=== PATIENT | female | born 1990 | race Caucasian/White ===

== ENCOUNTER 2023-01-17 11:13 | Outpatient (OUT) | payer OTHER, SELFPAY ==
--- NOTE | 2023-01-17 | XR_ITS ---
The [address] [address] Patient Name: MORGAN KIRKLAND MRN: [id number] date: 1990 Sex: F Assigned Patient Location: [facility] Current Patient Location: Accession/Order Number: [id number] Exam Date: 01/17/2023 11:20 Report Date: 01/19/2023 07:31 At the request of: CLARK BOLAÑOS Procedure: XR abdomen 1V EXAMINATION: XR abdomen 1V HISTORY: KIDNEY STONE COMPARISON: No relevant comparison available. FINDINGS: KIDNEY/URETER - RIGHT: No visible renal or ureteral calcifications. KIDNEY/URETER - LEFT: No visible renal or ureteral calcifications. PELVIS: No visible ureteral calcifications. Any visible calcifications favor phleboliths. BOWEL: No abnormal dilation or deviation. BONES: No acute abnormality. OTHER: Negative. No abnormal gaseous collections. XR/XR abdomen 1V IMPRESSION: No urinary tract calculi visualized Electronically authenticated by: LITA SIMPSON Date: 01/19/2023 07:31
== END 2023-01-17 11:14 | disposition home or self-care (01) ==
LOC: RAD 11:13
PROVIDERS: PCP Family Medicine; Visit Provider Family Medicine
DX: Z87.442 Personal history of urinary calculi (principal)
CPT/HCPCS: 74018

== ENCOUNTER 2023-03-31 12:32 | Outpatient (OUT) | payer OTHER, SELFPAY ==
--- OUTSIDE RECORDS SUMMARY | 2023-03-31 12:36 | XMS_ITS | CCD ---
Author Name Unknown Address [address] [facility] [address] [place] [address] Organization [facility] Care Team Providers Care Documentation Engineer Name Role Phone David Newberry Unavailable DAVID NEWBERRY Primary Care Physician ROHITH, DR DAVID Fisher Admitting Unavailable NEWBERRY, DR DAVID Fisher Primary Care Unavailable NEWBERRY, DR DAVID Fisher Attending Unavailable NEWBERRY, DR DAVID Fisher Attending Unavailable NEWBERRY, DR DAVID Fisher Admitting Unavailable NEWBERRY, DR DAVID Fisher Primary Care Unavailable NEWBERRY, DR DAVID Fisher Consulting Unavailable NEWBERRY, DR DAVID Fisher Primary Care Unavailable CLEMENS ., DR RODAS Admitting Unavailable CLEMENS ., DR RODAS Consulting Unavailable CLEMENS ., DR RODAS Attending Unavailable IRIS FUNEZ Consulting Unavailable NEWBERRY, DR DAVID Fisher Primary Care Unavailable CLEMENS ., DR RODAS Admitting Unavailable CLEMENS ., DR RODAS Consulting Unavailable CLEMENS ., DR RODAS Attending Unavailable ZIMISA, DR ZAHRA Roldan Consulting Unavailable NEWBERRY, DR DAVID Fisher Attending Unavailable NEWBERRY, DR DAVID Fisher Admitting Unavailable NEWBERRY, DR DAVID Fisher Primary Care Unavailable NEWBERRY, DR DAVID Fisher Attending Unavailable NEWBERRY, DR DAVID Fisher Admitting Unavailable NEWBERRY, DR DAVID Fisher Primary Care Unavailable ELANA RAMIREZ Consulting Unavailable NEWBERRY, DR DAVID Fisher Attending Unavailable NEWBERRY, DR DAVID Fisher Admitting Unavailable NEWBERRY, DR DAVID Fisher Primary Care Unavailable ROHITH, DR DAVID Fisher Consulting Unavailable KELSIE, DR MEJIA Attending Unavailable HAKAN, DR ZAHRA Roldan Consulting Unavailable ROHITH, DR DAVID Fisher Primary Care Unavailable KELSIE, DR MEJIA Admitting Unavailable ROHITH, DR DAVID Fisher Consulting Unavailable ELANA RAMIREZ Consulting Unavailable KELSIE, DR MEJIA Consulting Unavailable ROYER PEARCE Consulting Unavailable ROYER PEARCE Admitting Unavailable NEWBERRY, DR DAVID Fisher Primary Care Unavailable ROEYR PEARCE Attending Unavailable HAY ., DR APPLE Consulting Unavailable HAY ., DR APPLE Attending Unavailable NEWBERRY, DR DAVID Fisher Primary Care Unavailable HAY ., DR APPLE Admitting Unavailable ROHITH, DR DAVID Fisher Primary Care Unavailable CLEMENS ., DR RODAS Admitting Unavailable CLEMENS ., DR RODAS Consulting Unavailable CLEMENS ., DR RODAS Attending Unavailable YOEL VAZ Consulting Unavailable ROHITH, DR DAVID Fisher Primary Care Unavailable MIKY ., DR RODAS Consulting Unavailable CLEMENS ., DR RODAS Attending Unavailable CLEMENS ., DR RODAS Admitting Unavailable KEITH PLASENCIA Consulting Unavailable DELFINO COVINGTON Consulting Unavailable MD David Newberry Primary Care Provider DO Dasha Garcia Attending Provider MD David Newberry Primary Care Provider DO Dasha Garcia Attending Provider MD Enrique Lucas Attending Provider Clark CLEMENS Attending Unavailable Clark CLEMENS Attending Unavailable Clark CLEMENS Attending Unavailable Clark CLEMENS Attending Unavailable Enrique Lucas Admitting Unavailable Enrique Lucas Attending Unavailable David Newberry Primary Care Unavailable Dasha Garcia Admitting Unavailable Dasha Garcia Attending Unavailable David Newberry Primary Care Unavailable Dasha Garcia Attending Unavailable Jose, Dasha Admitting Unavailable David Newberry Primary Care Unavailable DASHA GARCIA Attending Unavailable David Newberry MD Primary Care Provider DAVID NEWBERRY Primary Care Unavailable ELANA RAMIREZ Referring Unavailable ELANA RAMIREZ Attending Unavailable NAHID GRIFFIN Attending Unavailable OG BARONE Attending Unavailable OG BARONE Attending Unavailable ELANA RAMIREZ Attending Unavailable OG BARONE Attending Unavailable ELANA RAMIREZ Attending Unavailable OG BARONE Admitting Unavailable OG BARONE Attending Unavailable Allergies Allergy Classification Reported Allergen(s) Allergy Type Date of Onset Reaction(s) Facility (14 sources) Penicillin; Translations: [penicillin] Drug Allergy 03-26-19 21 rash, Weal (disorder) General Surgery Rob (2 sources) Allergies Reconciled Propensity to adverse reactions Unknown [facility] Other (2 sources) Substance with penicillin structure and antibacterial mechanism of action (substance) Drug allergy 01-20-20 13 Unknown [facility] Other (2 sources) patient allergy list reviewed by nurse or physicia Propensity to adverse reactions 09-08-19 14 Comment:Done [employer] [facility] Other (3 sources) Penicillins; Translations: [Penicillins] Allergy to substance 12-16-19 23 Rash [facility] (3 sources) Povidone-Iodine; Translations: [povidone iodine topical] Drug Allergy 03-03-20 23 Eruption of skin (disorder) [facility] Medications Current Medications Medication Drug Class(es) Dates Sig (Normalized) Sig (Original) cetirizine hydrochloride 10 mg oral tablet (7 sources) Histamine-1 Receptor Antagonist Start: 04-15-2022 take 1 tablet by mouth every twenty-four hours Cetirizine HCl 10 MG 1 tablet Orally Once a day for 14 days Mar, Active docusate sodium 100 mg oral capsule (3 sources) Start: 12-29-2022 take 1 capsule by mouth twice daily Docusate Sodium (Colace) 100 mg capsule Active 100 MG PO Twice daily December 29, 2022 12:00pm Start: 06-07-2019 End: 12-15-2022 take 1 capsule by mouth twice daily Docusate Sodium (Colace) 100 mg capsule Discontinued 100 MG PO Twice daily June 07, 2019 7:07am December 15, 2022 1:43pm fluticasone propionate 0.05 mg/actuat metered dose nasal spray (7 sources) Corticosteroid Start: 04-15-2022 take 1 spray(s) nasal route twice daily Flonase Allergy Relief 50 MCG/ACT 1 spray in each nostril Nasally Twice a day for 14 day(s) Mar, Active ibuprofen 600 mg oral tablet (3 sources) Nonsteroidal Anti-inflammatory Drug Start: 12-29-2022 take 600 mg by mouth every six hours Ibuprofen Active 600 MG PO Q6H December 28, 2022 11:00pm Start: 06-07-2019 End: 12-15-2022 take 600 mg by mouth every six hours Ibuprofen Discontinued 600 MG PO Q6H June 06, 2019 11:00pm December 15, 2022 1:43pm metoprolol tartrate 75 mg oral tablet (12 sources) beta-Adrenergic Caden Start: 01-23-2023 Metopr olol Tartrate 75 mg oral tablet Refills(s) 0 Start Date: 01/23/23 Status: Ordered Start: 12-15-2022 take 75 mg by mouth twice kelly y Metoprolol Tartrate Active 75 MG PO Twice daily December 14, 2022 11:00pm Start: 05-19-2022 Lopressor 25 m g oral tablet Refills(s) 0 Start Date: 05/19/22 Status: Ordered take 1 tablet by meg th twice daily Metoprolol Tartrate 50 MG 1 tab Orally Twice a day for 30 day(s) Active sulfamethoxazole 800 mg / trimethoprim 160 mg oral tablet (7 sources) Dihydrofolate Reductase Inhibitor Antibacterial, Sulfonamide Antimicrobial Start: 04-14-2022 take 1 tablet by mouth every twelve hours Bactrim DS 800-160 MG 1 tablet Orally Twice a day for 10 day(s) Mar, Active traMADol hydrochloride 50 mg oral tablet (1 source) Opioid Agonist Start: 12-29-2022 take 50 mg by mouth every six hours Tramadol Active 50 MG PO Q6H 12 10December 28, 2022 11:00pm Completed/Discontinued Medications Medication Drug Class(es) Dates Sig (Normalized) Sig (Original) cefTRIAXone (16 sources) Cephalosporin Antibacterial Start: 11-04-2020 Rocephin 500 mg Oct, 1 g Start: 2016 Rocephin 500 m g Nov, 500 mg nitroglycerin 0.3 mg sublingual tablet (1 source) Nitrate Vasodilator Start: 02-27-2023 End: 02-27-2023 nitroGLYCERIN (NITROSTAT) SL tablet 0.3 mg Vit 84-Hikd-Eimcg-Dha ( + Dha) 28 mg iron- 975 mcg-200 mg Combo Pack (2 sources) Start: 04-21-2019 End: 12-15-2022 take 1 tablet by mouth once daily Vit 62-Kpca-Bxxog-Dha ( + Dha) 28 mg iron- 975 mcg-200 mg Combo Pack Discontinued 1 TAB PO Daily April 21, 2019 12:00am December 15, 2022 1:43pm Start: 04-21-2019 End: 12-15-2022 take 1 tablet by mouth once daily Vit 78-Weej-Rkfam-Dha ( + Dha) 28 mg iron- 975 mcg-200 mg Combo Pack Discontinued 1 TAB PO Daily April 21, 2019 1:00am December 15, 2022 2:43pm Problems Active Problems Problem Classification Problem Date Documented Date Episodic/Chronic Abdominal pain (16 sources) Abdominal pain; Translations: [Unspecified abdominal pain] Onset: 09-22-2013 Episodic Allergic reactions (10 sources) Contact dermatitis; Translations: [Eczema] Onset: 06-18-2017 11-10-2019 Episodic Anxiety disorders (4 sources) Anxiety; Translations: [Anxiety disorder] Onset: 09-07-2013 11-10-2019 Chronic Bacterial infection; unspecified site (3 sources) Methicillin resistant Staphylococcus aureus infection; Translations: [Personal history of Methicillin resistant Staphylococcus aureus infection] Onset: 07-24-2022 11-17-2020 Episodic Calculus of urinary tract (16 sources) History of calculus of kidney; Translations: [Personal history of urinary calculi] Onset: 05-19-2022 Episodic Cardiac dysrhythmias (20 sources) Tachycardia, unspecified; Translations: [Palpitations] Onset: 04-06-2014 Episodic Chronic obstructive pulmonary disease and bronchiectasis (2 sources) Bronchitis; Translations: [Bronchitis, not specified as acute or chronic] Episodic Coma; stupor; and brain damage (2 sources) Daytime somnolence; Translations: [Somnolence] Episodic Conditions associated with dizziness or vertigo (4 sources) Postural dizziness; Translations: [Dizziness and giddiness] Onset: 01-09-2023 02-27-2023 Episodic Endometriosis (1 source) Uterine adenomyosis; Translations: [Adenomyosis of uterus] 12-29-2022 Chronic Esophageal disorders (5 sources) Gastroesophageal reflux disease; Translations: [Gastro-esophageal reflux disease without esophagitis] Onset: 11-01-2013 11-10-2019 Chronic Essential hypertension (9 sources) Hypertensive disorder; Translations: [Essential (primary) hypertension] Onset: 07-18-2016 11-10-2019 Chronic Genitourinary symptoms and ill-defined conditions (20 sources) Urgent desire to urinate; Translations: [Urgency of urination] Onset: 05-19-2022 Episodic Influenza (2 sources) Upper respiratory tract infection due to Influenza; Translations: [Influenza due to unidentified influenza virus with other respiratory manifestations] Episodic Malaise and fatigue (1 source) Other fatigue Episodic Menstrual disorders (2 sources) Menorrhagia; Translations: [Excessive and frequent menstruation with regular cycle] Onset: 12-29-2022 12-29-2022 Chronic Other circulatory disease (2 sources) Elevated blood-pressure reading without diagnosis of hypertension; Translations: [Elevated blood-pressure reading, without diagnosis of hypertension] Episodic Other connective tissue disease (2 sources) Bursitis 11-10-2019 Episodic Other connective tissue disease (1 source) Fibromyalgia; Translations: [FIBROMYALGIA] Onset: 07-24-2022 Episodic Other female genital disorders (2 sources) History of past delivery; Translations: [Status post vaginal delivery] 06-07-2019 Episodic Other nutritional; endocrine; and metabolic disorders (2 sources) Body mass index 30+ - obesity 11-09-2020 Chronic Other nutritional; endocrine; and metabolic disorders (6 sources) Obese class II; Translations: [Body mass index (BMI) 37.0-37.9, adult] Chronic Other nutritional; endocrine; and metabolic disorders (2 sources) Obese class I; Translations: [Body mass index 34.0-34.9, adult] Onset: 02-09-2017 Chronic Other nutritional; endocrine; and metabolic disorders (1 source) Body mass index 40+ - severely obese; Translations: [Body mass index (BMI) 40.0-44.9, adult] Chronic Other nutritional; endocrine; and metabolic disorders (1 source) Severe obesity; Translations: [Morbid (severe) obesity due to excess calories] Chronic Other nutritional; endocrine; and metabolic disorders (1 source) Morbid (severe) obesity due to excess calories Chronic Other nutritional; endocrine; and metabolic disorders (1 source) Body mass index (BMI) 40.0-44.9, adult Chronic Other skin disorders (2 sources) Hypertrophic condition of skin; Translations: [Other hypertrophic disorders of the skin] Episodic Other skin disorders (2 sources) Folliculitis; Translations: [Follicular disorder, unspecified] Episodic Other upper respiratory infections (7 sources) Acute maxillary sinusitis, unspecified; Translations: [Acute pharyngitis] Onset: 02-09-2017 Episodic Residual codes; unclassified (1 source) Acquired absence of both cervix and uterus; Translations: [Acquired absence of both cervix and uterus] Onset: 12-29-2022 Episodic Skin and subcutaneous tissue infections (6 sources) Cellulitis caused by Staphylococcus aureus; Translations: [Abscess of right lower limb] 11-17-2020 Episodic Spondylosis; intervertebral disc disorders; other back problems (6 sources) Backache; Translations: [Dorsalgia, unspecified] Onset: 09-07-2013 11-10-2019 Episodic Systemic lupus erythematosus and connective tissue disorders (5 sources) Sjogren's syndrome; Translations: [Sicca syndrome, unspecified] Onset: 02-13-2015 11-10-2019 Chronic Thyroid disorders (14 sources) Goiter; Translations: [Nontoxic goiter, unspecified] Onset: 04-12-2022 Chronic Thyroid disorders (1 source) Disorder of thyroid, unspecified Episodic Unclassified (1 source) PERSONAL HISTORY OF COVID-19; Translations: [PERSONAL HISTORY OF COVID-19] Onset: 07-24-2022 Unclassified (1 source) Sjogren syndrome with keratoconjunctivitis; Translations: [Sjogren syndrome with keratoconjunctivitis] Onset: 01-20-2023 Unclassified (1 source) Adenomyosis of the uterus; Translations: [Adenomyosis of the uterus] Onset: 12-29-2022 Unclassified (1 source) Encounter for preprocedural laboratory examination; Translations: [Encounter for preprocedural laboratory examination] Onset: 12-15-2022 Urinary tract infections (6 sources) Urinary tract infectious disease; Translations: [Urinary tract infection, site not specified] Onset: 05-19-2022 Episodic Viral infection (6 sources) Verruca vulgaris; Translations: [Viral wart, unspecified] Onset: 02-09-2017 11-10-2019 Episodic Viral infection (2 sources) Disease caused by 2019-nCoV; Translations: [COVID-19] Past or Other Problems Problem Classification Problem Date Documented Da te Episodic/Chronic Acute bronchitis (4 sources) Acute bronchitis; Translations: [Acute bronchitis, unspecified] Onset: 09-12-2015 11-10-2019 Episodic Coagulation and hemorrhagic disorders (4 sources) Spontaneous ecchymosis; Translations: [Spontaneous ecchymoses] Onset: 11-30-2013 11-10-2019 Episodic Immunizations and screening for infectious disease (4 sources) Raised antibody titer; Translations: [RAISED ANTIBODY TITER] Onset: 04-12-2022 Episodic Other connective tissue disease (4 sources) Fibromyalgia; Translations: [Fibromyalgia] Onset: 02-13-2015 11-10-2019 Episodic Other connective tissue disease (2 sources) Prepatellar bursitis; Translations: [Prepatellar bursitis, right knee] Onset: 02-13-2015 Episodic Other connective tissue disease (1 source) Myalgia/myositis - multiple; Translations: [Unspecified myalgia and myositis] Onset: 09-07-2013 Episodic Other connective tissue disease (1 source) Muscle pain; Translations: [Unspecified myalgia and myositis] Onset: 09-07-2013 Episodic Other screening for suspected conditions (not mental disorders or infectious disease) (1 source) Abnormal coagulation profile; Translations: [ABNORMAL COAGULATION PROFILE] Onset: 04-15-2022 Episodic Otitis media and related conditions (4 sources) Otitis media; Translations: [Acute secretory otitis media] Onset: 06-03-2017 11-10-2019 Episodic Syncope (7 sources) Syncope; Translations: [Syncope and collapse] Onset: 09-22-2013 11-10-2019 Episodic Unclassified (1 source) Paroxysmal SVT (supraventricular tachycardia) I47.10 Results Test Name Value Interpretation Reference Range Facility Office Visiton 03-03-2023 Follow-up visit [id number] Ada Kirkland 1990 F Date Provider Department Center 03/03/2023 OG ERVIN RADHA Rivas [facility] Family History Problem Relation Age of Onset Heart attack Father 44 Coronary artery disease Father Clotting disorder Father Family Status - Relation Status Age at Father Alive Level of Service:88354 MA OFFICE/OUTPATIENT ESTABLISHED MOD MDM 30 MIN Normal [facility] Tilt tableOrdered By: Nadiya bonner on 02-27-2023 BP (Initial Tilt) 125/97 mmHg BON SEC OURS [employer] Phone: BP (Max BP) 139/92 mmHg BON SECOURS [employer] Work Phone: BP (Max Heart Rate) 83/41 mmHg BON S ECOURS [employer] Work Phone: BP (Min BP) 83/41 mmHg MIGUEL SECTHUAN [employer] Work Phone: BP (Min Heart Rate) 111/82 mmHg MIGUEL CANTU [employer] Work Phone: BP (Supine) 131/52 bpm BON [employer] Work Phone: Heart rate 72 /min bpm MIGUEL [employer] Work Phone: Heart rate 112 /min bpm BON [employer] Work Phone: Minutes (Max BP) 22 BON SECO KALI [employer] Work Phone: Minutes (Max Heart Rate) 23 MIGUEL [employer] Work Phone: Minutes (Min BP) 23 BON SECO [employer] Work Phone: Minutes (Min Heart Rate) 6 MIGUEL [employer] Work Phone: Rhythm (Initial Tilt) SR MIGUEL [employer] Work Phone: Rhythm (Max BP) ST BON SECOU RS [employer] Phone: Rhythm (Max Heart Rate) ST MIGUEL [employer] Phone: Rhythm (Min BP) ST BON SECOU RS [employer] Phone: Rhythm (Min Heart Rate) SR [employer] Phone: Rhythm (Supine) SR BON SECOU RS [employer] Work Phone: BON [employer] Phone: Tilt tableon 02-27-2023 Tilt Study Conclusio ns: Study Conclusions: Abnormal head upright tilt study. The patient's heart rate, blood pressure response and symptoms were most consistent with Orthostatic intolerance/Postural Orthostatic Tachycardia Syndrome(POTS). Combined with vigilant maintenance of euvolemia and maintaining a moderate salt intake, pharmacologic treatment with Florinef, Midodrine and/or beta blockers among other treatments have shown some effectiveness in the treatment of this condition. Tilt Table Tilt duration without medication: 20 minutes. Tilt elevation at 70 degrees. Baseline supine HR: 72 bpm. Baseline supine BP: 131/52. Baseline supine rhythm: SR. Initial tilted HR: 78 bpm. Initial tilted BP: 125/97. Initial tilted rhythm: SR. Initial Tilt revealed symptoms such as (no S/S found). Nitroglycerin given. NTG 0.3 mcg was administered. Tilt duration with NTG = 10 minutes. After the introduction of NTG, the following symptoms were noteable: palpitations, tachycardia, dizziness and light headedness. The test was stopped due to the end of test duration. Procedure Summary: After explaining the risk, benefits and alternatives to the procedure, informed written consent was obtained. The patient was brought to the tilt table laboratory in a fasting and resting state. The patient was placed on the tilt table in the supine position. ECG patches were applied and an IV was placed. The patient's baseline blood pressure was 131/52 mmHg with a heart rate of 72/minute. The patient was then raised to the 70 degree head upright tilt position with pulse rate, blood pressure and cardiac rhythm monitored and recorded each minute of the study for a maximum of 30 minutes. During the initial 20 minutes of the study, the patient's blood pressure ranged from a high of 135/84 mmHg to a low of 103/74 mmHg, while their heart rate ranged from a low of 78/minute to a high of 92/minute. During this period, the patient reported no symptoms. During the last 10 minutes of the study, the patient was given 0.3 mg of sublingual Nitroglycerin in order to stimulate sympathetic stimulation to increase the patient's heart rate by at least 20%. During this time, the patient's blood pressure ranged from a high of 139/92 mmHg to a low of 83/41 mmHg, while their heart rate ranged from a low of 97/minute to a high of 122/minute. During this period, the patient reported moderate lightheadedness, palpitations, and leg weakness. At this point, the patient was returned to the supine position and monitored for an additional ten minutes. Once the patient felt well enough to be discharged home, they were discharged home with instructions to follow up with their primary care physician and/ or lathe sander as previously scheduled. [facility] CV CPACS Radiology Study observation (narrative) [facility] Vital signsOrdered By: Nadiya douglass on 02-27-2023 Heart rate 78 /min bpm [employer] Work Phone: Heart rate 122 /min bpm [employer] Phone: Ambulatory Visit Summaryon 1 03-25-2022 Ambulatory Visit Summary MORGAN KIRKLAND :1990 Visit Date:01/23/2023 Ambulatory Visit Instructions Your Diagnosis History of kidney stones Recurrent UTI Tests Performed Urnls Dip Stick Auto w/o Microscopy POC 64220 XR Abdomen 1 View -- Results Pending -- Please visit your patient portal for your results or contact your primary care physician. Your Care Team Attending Physician - Clark CLEMENS MD Primary Care Physician - DAVID NEWBERRY MD This Is Your Medications List Contact prescribing physician if questions or concerns metoprolol (Metoprolol Tartrate 75 mg oral tablet) Procedures Performed Cystoscopy (07/17/2022), Tonsillectomy and adenoidectomy (2012), Laparoscopic-assisted vaginal hysterectomy. Discharge Vitals Heart Rate (Peripheral) 73 Respiratory Rate 16 Blood Pressure 124/82 Height 172 cm Height 68 in Weight 104.6 kg Weight 230.12 lb BMI 35.36 What to do next Scheduled Follow-Up Appointments Thursday 8:30 AM EST With: MIKY SAMPSON, Clark Roldan Where: [facility] Lab Reportson 01-23-2023 Lab Reports [id number] [facility] Patient Educationon 01-24-20 23 Patient Education Obstetrics and Gynec ology Urinary Tract Infection, Adult A urinary tract infection (UTI) is an infection of any part of the urinary tract. The urinary tract includes: ? The kidneys. ? The ureters. ? The bladder. ? The urethra. These organs make, store, and get rid of pee (urine) in the body. What are the causes? This infection is caused by germs (bacteria) in your genital area. These germs grow and cause swelling (inflammation) of your urinary tract. What increases the risk? The following factors may make you more likely to develop this condition: ? Using a small, thin tube (catheter) to drain pee. ? Not being able to control when you pee or poop (incontinence). ? Being female. If you are female, these things can increase the risk: ? Using these methods to prevent : ? A medicine that kills sperm (spermicide). ? A device that blocks sperm (diaphragm). ? Having low levels of a female hormone (estrogen). ? Being . You are more likely to develop this condition if: ? You have genes that add to your risk. ? You are sexually active. ? You take antibiotic medicines. ? You have trouble peeing because of: ? A prostate that is bigger than normal, if you are male. ? A blockage in the part of your body that drains pee from the bladder. ? A kidney stone. ? A nerve condition that affects your bladder. ? Not getting enough to drink. ? Not peeing often enough. ? You have other conditions, such as: ? Diabetes. ? A weak disease-fighting system (immune system). ? Sickle cell disease. ? Gout. ? Injury of the spine. What are the signs or symptoms? Symptoms of this condition include: ? Needing to pee right away. ? Peeing small amounts often. ? Pain or burning when peeing. ? Blood in the pee. ? Pee that smells bad or not like normal. ? Trouble peeing. ? Pee that is cloudy. ? Fluid coming from the vagina, if you are female. ? Pain in the belly or lower back. Other symptoms include: ? Vomiting. ? Not feeling hungry. ? Feeling mixed up (confused). This may be the first symptom in older adults. ? Being tired and grouchy (irritable). ? A fever. ? Watery poop (diarrhea). How is this treated? ? Taking antibiotic medicine. ? Taking other medicines. ? Drinking enough water. In some cases, you may need to see a specialist. Follow these instructions at home: Medicines ? Take [id number] and prescription medicines only as told by your doctor. ? If you were prescribed an antibiotic medicine, take it as told by your doctor. Do not stop taking it even if you start to feel better. General instructions ? Make sure you: ? Pee until your bladder is empty. ? Do not hold pee for a long time. ? Empty your bladder after sex. ? Wipe from front to back after peeing or pooping if you are a female. Use each tissue one time when you wipe. ? Drink enough fluid to keep your pee pale yellow. ? Keep all follow-up visits. Contact a doctor if: ? You do not get better after 1?2 days. ? Your symptoms go away and then come back. Get help right away if: ? You have very bad back pain. ? You have very bad pain in your lower belly. ? You have a fever. ? You have chills. ? You feeling like you will vomit or you vomit. Summary ? A urinary tract infection (UTI) is an infection of any part of the urinary tract. ? This condition is caused by germs in your genital area. ? There are many risk factors for a UTI. ? Treatment includes antibiotic medicines. ? Drink enough fluid to keep your pee pale yellow. This information is not intended to replace advice given to you by your health care provider. Make sure you discuss any questions you have with your health care provider. Document Revised: 10/12/2020 Document Reviewed: 10/12/2020 [employer] Patient Education ? 2022 [employer]. [facility]2023 [facility] [id number] [facility] Urology Office/Clinic Noteon 01-23-2023 Urology Office/Clinic Note Chief Complaint hx of kidney stones HPI Staff 6 month f/u with KUB. Previous dx of hx of kidney stones, urinary frequency, urgency and recurrent UTI. Dysuria: no Incomplete bladder emptying: no Hematuria: pt is spotting from the recent hysterectomy Frequency: no Urgency: no Nocturia: no Stream: good steady stream Leaking: a little Post void dripping: no Wearing pads/ Depends: no Urge incontinence: no Stress incontinence: no Incontinence without Sensory Awareness: no Abdominal pain: no Flank pain: not at this time Sexual complaints: no History of Present Illness Tests reviewed: reviewed UA, KUB I have reviewed the previous health record information and history for this patient from Dr. Clemens. I have reviewed and verified the staff HPI to be accurate for this encounter. Review of Systems ROS - Provider Constitutional: denies weight loss, denies hot flashes. Eyes: denies eye problems. Gastrointestinal: denies nausea, denies vomiting. Cardiovascular: denies chest pain or angina. Integumentary: no dryness Musculoskeletal: denies musculoskeletal symptoms. ENMT: denies otolaryngeal symptoms. Respiratory: no shortness of breath. Heme/Lymph: denies easy bleeding tendency, denies easy bruising tendency. Psychiatric: no confusion, no anxiety. Genitourinary: See HPI. Physical Exam Vitals & Measurements HR: 73(Peripheral) RR: 16 BP: 124/82 HT: 68 in HT: 172 cm WT: 104.6 kg WT: 230.12 lb BMI: 35.36 General Appearance: alert , no acute distress, well nourished, well developed female. Genitourinary: bladder nonpalpable, no flank pain. Assessment/Plan Reports she has had recent cardiac complications, such as Tachycardia. States POTS is trying to be r/o. 1. History of kidney stones (Z87.442: Personal history of urinary calculi) S/p Cysto/R ureteral dilation/R URS/basket extraction 07/17/22. (first stone event) KUB 01/17/23 TBH - no stones id'd. Denies any stone episodes since last encounter. Reports she maintains increased fluid intake. Will continue to monitor. Discussed if pt has recurrent stone episode, will consider a metabolic workup. -Cont increased fluid intake -KUB in 1yr 2. Recurrent UTI (N39.0: Urinary tract infection, site not specified) UCx 01/20/23 - neg. UA today negative for blood and infection. Denies burning with urination or gross hematuria wo other UTI sxs. Advised pt to maintain increased fluid intake. Follow-up With When Contact Information MIKY SAMPSON, Clark Roldan, [facility] [address], [place] [address]- [phone] Additional Instructions: 1 yr w/ KUB Patient Education Urinary Tract Infection, Adult, [id number] Antionette Sparks, personally scribed for Dr. Clemens on 01/23/2023 09:39:31. . Documentation recorded by the scribe, Antionette Huizar, accurately reflects the services(s) I performed and decisions made by me. Authenticated by Dr. Clemens on 01/23/2023 09:41:20. Problem List/Past Medical History Ongoing Acute bronchitis Acute right flank pain Anxiety Back pain BMI 36.0-36.9,adult Bursitis Chronic GERD Contact dermatitis Eczema Epigastric pain Fibromyalgia Gross hematuria History of kidney stones Hypertension Infection of skin due to methicillin resistant Staphylococcus aureus (MRSA) Kidney stone Left sided abdominal pain MRSA cellulitis Otitis media Palpitations Recurrent UTI Sjogren's syndrome Spontaneous ecchymoses Syncope Tachycardia Urinary frequency Urinary urgency UTI symptoms Verruca vulgaris Historical No qualifying data Procedure/Surgical History Cystoscopy (07/17/2022), Tonsillectomy and adenoidectomy (2012), Laparoscopic-assisted vaginal hysterectomy. Medications Metoprolol Tartrate 75 mg oral tablet Allergies Betadine (Rash) penicillin (Hives) Social History Alcohol - Denies Alcohol Use, 11/09/2020 Substance Abuse - Denies Substance Abuse, 11/09/2020 Tobacco Never (less than 100 in lifetime) Tobacco Use:. Never Smokeless Tobacco Use:., 05/19/2022 Family History Arthritis: Mother. Asthma: Father. Breast cancer: Grandparent. Diabetes: Grandparent. Glaucoma: Father. Heart problem: Father and Grandparent. Hypertension: Mother. Kidney stone: Grandparent. Migraine: Mother. Prostate cancer: Grandparent. Immunizations Vaccine Date Status SARS-CoV-2 (COVID-19) mRNA-1273 vaccine 04/25/2020 Recorded SARS-CoV-2 (COVID-19) mRNA-1273 vaccine 03/28/2020 Recorded diphtheria/pertussis, acel/tetanus adult 06/07/2019 Recorded hepatitis B adult vaccine 07/01/2018 Recorded hepatitis B adult vaccine 05/21/2018 Recorded Lab Results Ambulatory Point of Care Results Bilirubin Urine Dipstick: Negative (01/23/23 09:04:00) Blood Urine Dipstick: Negative (01/23/23 09:04:00) Glucose Urine Dipstick: Negative (01/23/23 09:04:00) Ketones Urine Dipstick: Negative (01/23/23 09:04:00) (more content not included)... Normal [facility] Comment on above: Result Comment: Elec tronically Signed By: Clark CLEMENS MD\.br\Date and Time Signed: 01/23/23 09:41 EST\.br\Electronically Co-Signed By: Antionette Huizar\.br\Date and Time Co-Signed: 01/23/23 09:39 EST Physician Orderon 01-21-2023 Physician Order [id number] Normal [facility] Automated erythrocytes count in urine sediment (number/area)Ordered By: Enrique Lucas on 01-20-2023 RBC Auto (Urine sed) [#/Area] 10-19 [HPF] 0-4 [facility] Automated leukocytes count i n urine sediment (number/area)Ordered By: Enrique Lucas on 01-20-2023 WBC Auto (Urine sed) [#/Area] 5-9 [HPF] 0-4 [facility] Basophils Auto (Bld) [#/Vol] Ordered By: Enrique Lucas on 01-20-2023 Basophils (Bld) [#/Vol] 0.1 10*3/uL 0.0-0.2 [facility] Basophils/100 WBC Auto (Bld) Ordered By: Enrique Lucas on 01-20-2023 Basophils/100 WBC (Bld) 0.7 % . [facility] Bilirubin Test strip Ql (U)O rdered By: Enrique Lucas on 01-20-2023 Bilirubin Ql (U) Negative Negative [facility] C reactive protein [Mass/vol ume] in Serum or PlasmaOrdered By: Enrique Lucas on 01-20-2023 CRP [Mass/Vol] 0.5 mg/dL 0.0-0.5 [facility] C-Reactive Proteinon 023 C-Reactive Protein 0.5 mg/dL Normal 0.0-0.5 [facility] Comment on above: Result Comment: PERF ORMED BY: [facility] [address] [place] [address] PATHOLOGIST CELL TESTER OLIMPIA MORA M.D. Performed By: #### B MP #### [address] Color Auto (U)Ordered By: Marybeth Lucas on 01-20-2023 Color (U) Yellow Yellow [facility] Complement C3on 01-20-2023 Complement C3 182 mg/dL High 82-167 [facility] Comment on above: Result Comment: Perf ormed at: - [facility] [id number] Internet Application Developer: Chris Urban PhD, Phone: [phone] Performed By: #### B MP #### [address] Complement C4on 01-20-2023 Complement C4 29 mg/dL Normal 12-38 [facility] Comment on above: Result Comment: PERF ORMED BY: [place] [address] PATHOLOGIST CELL TESTER OLIMPIA MORA M.D. Performed By: #### B MP #### [address] Complete Blood Count Auto Di ffon 01-20-2023 Basophils (Bld) [#/Vol] 0.1 10*3/uL Normal 0.0-0.2 [facility] Comment on above: Performed By: #### B MP #### [address] Basophils/100 WBC (Bld) 0.7 % Normal . [facility] Comment on above: Performed By: #### B MP #### [place] [address] [place] Eosinophils (Bld) [#/Vol] 0.2 10*3/uL Normal 0.0-0.45 [facility] Comment on above: Performed By: #### B MP #### [address] Eosinophils/100 WBC (Bld) 3.0 % Normal . [facility] Comment on above: Performed By: #### B MP #### [address] Erythrocyte distribution width (RBC) [Ratio] 13.0 % Normal 11.9-15.3 [facility] Comment on above: Performed By: #### B MP #### [address] Hematocrit (Bld) [Volume fraction] 41.5 % Normal 34.0-46.4 [facility] Comment on above: Performed By: #### B MP #### [address] Hemoglobin (Bld) [Mass/Vol] 14.0 g/dL Normal 11.8-15.4 [facility] Comment on above: Performed By: #### B MP #### [address] Lymphocytes (Bld) [#/Vol] 2.6 10*3/uL Normal 1.00-4.8 [facility] Comment on above: Performed By: #### B MP #### [address] Lymphocytes/100 WBC (Bld) 35.4 % Normal . [facility] Comment on above: Performed By: #### B MP #### [address] MCH (RBC) [Entitic mass] 30.2 pg Normal 24.7-34.3 [facility] Comment on above: Performed By: #### B MP #### [address] MCV (RBC) [Entitic vol] 89.4 fL Normal 80-100 [facility] Comment on above: Performed By: #### B MP #### [address] Mean Corpuscular HGB Conc 33.7 g/dL Normal 32.0-35.0 [facility] Comment on above: Performed By: #### B MP #### [address] Monocytes (Bld) [#/Vol] 0.4 10*3/uL Normal 0.0-0.8 [facility] Comment on above: Performed By: #### B MP #### [facility] [address] [place] [address] [place] Monocytes/100 WBC (Bld) 5.3 % Normal . [facility] Comment on above: Performed By: #### B MP #### [facility] [address] [place] [address] [place] Neutrophils (Bld) [#/Vol] 4.1 10*3/uL Normal 1.8-7.7 [facility] Comment on above: Performed By: #### B MP #### [facility] [address] Neutrophils/100 WBC (Bld) 55.6 % Normal . [facility] Comment on above: Performed By: #### B MP #### [address] NRBC% 0.1 /100{WBC} Normal 0-0.5 [facility] Comment on above: Performed By: #### B MP #### [address] Platelet mean volume (Bld) [Entitic vol] 8.5 fL Normal 6.3-10.7 [facility] Comment on above: Performed By: #### B MP #### [place] [address] [place] Platelets (Bld) [#/Vol] 253 10*3/uL Normal 150-450 [facility] Comment on above: Performed By: #### B MP #### [place] [address] [place] RBC (Bld) [#/Vol] 4.65 10*6/uL Normal 3.60-5.00 [facility] Comment on above: Performed By: #### B MP #### [address] WBC (Bld) [#/Vol] 7.4 10*3/uL Normal 3.8-11.6 [facility] Comment on above: Performed By: #### B MP #### [facility] [address] [place], [place] [id number] [place] Creatinineon 01-20-2023 Creatinine [Mass/Vol] 0.70 mg/dL Normal 0.60-1.20 [facility] Comment on above: Performed By: #### C 4, C3 #### [facility] , #### ADDONUAPLUS, CBC, CRP, CUU, CREAT, ESR #### [place] [address] [place] GFR/1.73 sq M.predicted MDRD (S/P/Bld) [Vol rate/Area] mL/min/{1.73_m2} Normal [facility] Comment on above: Performed By: #### C 4, C3 #### [facility] , #### ADDONUAPLUS, CBC, CRP, CUU, CREAT, ESR #### [address] Creatinine [Mass/volume] in Serum or PlasmaOrdered By: Enrique Lucas on 01-20-2023 Creatinine [Mass/Vol] 0.70 mg/dL 0.60-1.20 [facility] Dipstick and Microscopicon 1 03-22-2022 Appearance (U) Clear Normal Clear [facility] Comment on above: Order Comment: Name Collection Type:: Clean-Voided Midstream Performed By: #### C 4, C3 #### [facility] , #### ADDONUAPLUS, CBC, CRP, CUU, CREAT, ESR #### [facility] [address] [place] [address] [place] Bacteria,Urine 1+ High None Seen [facility] Comment on above: Order Comment: Name Collection Type:: Clean-Voided Midstream Performed By: #### C 4, C3 #### [facility] , #### ADDONUAPLUS, CBC, CRP, CUU, CREAT, ESR #### [facility] [address] [place] [address] [place] Bilirubin,Urine Negative Normal Negative [facility] Comment on above: Order Comment: Name Collection Type:: Clean-Voided Midstream Performed By: #### C 4, C3 #### [facility] , #### ADDONUAPLUS, CBC, CRP, CUU, CREAT, ESR #### [facility] [address] [place] [address] Color (U) Yellow Normal Yellow [facility] Comment on above: Order Comment: Name Collection Type:: Clean-Voided Midstream Performed By: #### C 4, C3 #### [facility] , #### ADDONUAPLUS, CBC, CRP, CUU, CREAT, ESR #### [facility] [address] [place] [address] Glucose Ql (U) Normal Normal Normal [facility] Comment on above: Order Comment: Name Collection Type:: Clean-Voided Midstream Performed By: #### C 4, C3 #### [facility] , #### ADDONUAPLUS, CBC, CRP, CUU, CREAT, ESR #### [facility] [address] [place] [address] Hyaline Casts,Urine None Seen Normal 0-8 [facility] Comment on above: Order Comment: Name Collection Type:: Clean-Voided Midstream Result Comment: PERF ORMED BY: [place] [address] PATHOLOGIST CELL TESTER OLIMPIA MORA M.D. Performed By: #### C 4, C3 #### [facility] , #### ADDONUAPLUS, CBC, CRP, CUU, CREAT, ESR #### [facility] [address] [place] [address] Ketones Ql (U) Negative Normal Negative [facility] Comment on above: Order Comment: Name Collection Type:: Clean-Voided Midstream Performed By: #### C 4, C3 #### [facility] , #### ADDONUAPLUS, CBC, CRP, CUU, CREAT, ESR #### [address] Leukocyte esterase Test strip Ql (U) 2+ High Negative [facility] Comment on above: Order Comment: Name Collection Type:: Clean-Voided Midstream Performed By: #### C 4, C3 #### [facility] , #### ADDONUAPLUS, CBC, CRP, CUU, CREAT, ESR #### [address] Nitrite,Urine Negative Normal Negative [facility] Comment on above: Order Comment: Name Collection Type:: Clean-Voided Midstream Performed By: #### C 4, C3 #### [facility] , #### ADDONUAPLUS, CBC, CRP, CUU, CREAT, ESR #### [address] Occult Blood,Urine Trace High Negative [facility] Comment on above: Order Comment: Name Collection Type:: Clean-Voided Midstream Performed By: #### C 4, C3 #### [facility] , #### ADDONUAPLUS, CBC, CRP, CUU, CREAT, ESR #### [address] pH (U) 6.0 [pH] Normal 5.0-9.0 [facility] Comment on above: Order Comment: Name Collection Type:: Clean-Voided Midstream Performed By: #### C 4, C3 #### [facility] , #### ADDONUAPLUS, CBC, CRP, CUU, CREAT, ESR #### [address] Protein,Urine Negative Normal Negative [facility] Comment on above: Order Comment: Name Collection Type:: Clean-Voided Midstream Performed By: #### C 4, C3 #### [facility] , #### ADDONUAPLUS, CBC, CRP, CUU, CREAT, ESR #### [address] RBC,Urine 10-19 High 0-4 [facility] Comment on above: Order Comment: Name Collection Type:: Clean-Voided Midstream Performed By: #### C 4, C3 #### [facility] , #### ADDONUAPLUS, CBC, CRP, CUU, CREAT, ESR #### [address] Specificy [place],Urine 1.016 Normal 1.001-1.03 0 [facility] Comment on above: Order Comment: Name Collection Type:: Clean-Voided Midstream Performed By: #### C 4, C3 #### [facility] , #### ADDONUAPLUS, CBC, CRP, CUU, CREAT, ESR #### [address] Squamous Epithelial Cell,Urine 3-4 High 0-2 [facility] Comment on above: Order Comment: Name Collection Type:: Clean-Voided Midstream Performed By: #### C 4, C3 #### [facility] , #### ADDONUAPLUS, CBC, CRP, CUU, CREAT, ESR #### [address] Urobilinogen,Urine Normal Normal Normal [facility] Comment on above: Order Comment: Name Collection Type:: Clean-Voided Midstream Performed By: #### C 4, C3 #### [facility] , #### ADDONUAPLUS, CBC, CRP, CUU, CREAT, ESR #### [address] WBC,Urine 5-9 High 0-4 [facility] Comment on above: Order Comment: Name Collection Type:: Clean-Voided Midstream Performed By: #### C 4, C3 #### [facility] , #### ADDONUAPLUS, CBC, CRP, CUU, CREAT, ESR #### [facility] [address] Eosinophils Auto (Bld) [#/Vo l]Ordered By: Enrique Lucas on 01-20-2023 Eosinophils (Bld) [#/Vol] 0.2 10*3/uL 0.0-0.45 [facility] Eosinophils/100 WBC Auto (Bl d)Ordered By: Enrique Lucas on 01-20-2023 Eosinophils/100 WBC (Bld) 3.0 % . [facility] Erythrocyte Sedimentation Ra jeniffer 01-20-2023 ESR (Bld) [Velocity] 13 mm/h Normal 0-19 [facility] Comment on above: Result Comment: PERF ORMED BY: [place] [address] PATHOLOGIST CELL TESTER OLIMPIA MORA M.D. Performed By: #### B MP #### [facility] [address] [place] [address] Erythrocyte distribution wid th Auto (RBC) [Ratio]Ordered By: Enrique Lucas on 01-20-2023 Erythrocyte distribution width (RBC) [Ratio] 13.0 % 11.9-15.3 [facility] Erythrocyte sedimentation ra te by Photometric methodOrdered By: Enrique Lucas on 01-20-2023 ESR Photometric method (Bld) [Velocity] 13 mm/hr 0-19 [facility] Hematocrit Auto (Bld) [Volum e fraction]Ordered By: Enrique Lucas on 01-20-2023 Hematocrit (Bld) [Volume fraction] 41.5 % 34.0-46.4 [facility] Hemoglobin [Mass/volume] in BloodOrdered By: Enrique Lucas on 01-20-2023 Hemoglobin (Bld) [Mass/Vol] 14.0 g/dL 11.8-15.4 [facility] Ketones Auto test strip (U) [Mass/Vol]Ordered By: Enrique Lucas on 01-20-2023 Ketones (U) [Mass/Vol] Negative Negative [facility] - UrinalysisOrder ed By: Enrique Lucas on 01-20-2023 Hyaline casts LM Ql (Urine sed) None seen [LPF] 0-8 [facility] Leukocytes [#/volume] correc dave for nucleated erythrocytes in Blood by Automated counOrdered By: Enrique Lucas on 01-20-2023 WBC corrected for nucl RBC Auto (Bld) [#/Vol] 7.4 10*3/uL 3.8-11.6 [facility] Lymphocytes Auto (Bld) [#/Vo l]Ordered By: Enrique Lucas on 01-20-2023 Lymphocytes (Bld) [#/Vol] 2.6 10*3/uL 1.00-4.8 [facility] Lymphocytes/100 WBC Auto (Bl d)Ordered By: Enrique Lucas on 01-20-2023 Lymphocytes/100 WBC (Bld) 35.4 % . [facility] MCH Auto (RBC) [Entitic mass ]Ordered By: Enrique Lucas on 01-20-2023 MCH (RBC) [Entitic mass] 30.2 pg 24.7-34.3 [facility] MCHC Auto (RBC) [Mass/Vol]Or dered By: Enrique Lucas on 01-20-2023 MCHC (RBC) [Mass/Vol] 33.7 g/dL 32.0-35.0 [facility] MCV Auto (RBC) [Entitic vol] Ordered By: Enrique Lucas on 01-20-2023 MCV (RBC) [Entitic vol] 89.4 fL 80-100 [facility] Monocytes Auto (Bld) [#/Vol] Ordered By: Enrique Lucas on 01-20-2023 Monocytes (Bld) [#/Vol] 0.4 10*3/uL 0.0-0.8 [facility] Monocytes/100 WBC Auto (Bld) Ordered By: Enrique Lucas on 01-20-2023 Monocytes/100 WBC (Bld) 5.3 % . [facility] Neutrophils Auto (Bld) [#/Vo l]Ordered By: Enrique Lucas on 01-20-2023 Neutrophils (Bld) [#/Vol] 4.1 10*3/uL 1.8-7.7 [facility] Neutrophils/100 WBC Auto (Bl d)Ordered By: Enrique Lucas on 01-20-2023 Neutrophils/100 WBC (Bld) 55.6 % . [facility] Nitrite Test strip Ql (U)Ord ered By: Enrique Lucas on 01-20-2023 Nitrite Ql (U) Negative Negative [facility] No Panel InformationOrdered By: Enrique Lucas on 01-20-2023 Estimated GFR (CKD-EPI) > 60.0 mL/Min [facility] Creatinine Clearance (Chem N/A [facility] Nucleated erythrocytes [Pres ence] in Blood by Automated countOrdered By: Enrique Lucas on 01-20-2023 Nucleated RBC Auto Ql (Bld) 0.1 /100{WBC} 0-0.5 [facility] Platelet mean volume Auto (B ld) [Entitic vol]Ordered By: Enrique Lucas on 01-20-2023 Platelet mean volume (Bld) [Entitic vol] 8.5 fL 6.3-10.7 [facility] Platelets Auto (Bld) [#/Vol] Ordered By: Enrique Lucas on 01-20-2023 Platelets (Bld) [#/Vol] 253 10*3/uL 150-450 [facility] Protein Auto test strip (U) [Mass/Vol]Ordered By: Enrique Lucas on 01-20-2023 Protein (U) [Mass/Vol] Negative Negative Fi [facility] RBC Auto (Bld) [#/Vol]Ordere d By: Enrique Lucas on 01-20-2023 RBC (Bld) [#/Vol] 4.65 10*6/uL 3.60-5.00 [facility] Specific gravity Auto test s trip (U) [Rel density]Ordered By: Enrique Lucas on 01-20-2023 Specific gravity (U) [Rel density] 1.016 1.001-1.03 0 [facility] Squamous epithelial cells de tection in urine sediment by light microscopyOrdered By: Enrique Lucas on 01-20-2023 Epithelial cells.squamous LM Ql (Urine sed) 3-4 [HPF] 0-2 [facility] Urine Cultureon 01-20-2023 Bacteria identified Cx Nom (U) 20,000 colonies/ml mixed bacterial skin contaminants 2 Days PERFORMED BY: [place] [address] PATHOLOGIST CELL TESTER OLIMPIA MORA M.D. Normal [facility] Comment on above: Performed By: #### B MP #### [address] Urine bacteria detection by automated methodOrdered By: Enrique Lucas on 01-20-2023 Bacteria Auto Ql (U) 1+ None Seen [facility] Urine clarity by refractomet ry automatedOrdered By: Enrique Lucas on 01-20-2023 Clarity Refractometry automated (U) Clear Clear [facility] Urine glucose measurement by automated test strip (mass/volume)Ordered By: Enrique Lucas on 01-20-2023 Glucose Auto test strip (U) [Mass/Vol] Normal mg/dL Normal [facility] Urine hemoglobin detection b y automated test stripOrdered By: Enrique Lucas on 01-20-2023 Hemoglobin Auto test strip Ql (U) Trace Negative [facility] Urine leukocyte esterase det ection by automated test stripOrdered By: Enrique Lucas on 01-20-2023 Leukocyte esterase Auto test strip Ql (U) 2+ Negative [facility] Urobilinogen Auto test strip (U) [Mass/Vol]Ordered By: Enrique Lucas on 01-20-2023 Urobilinogen (U) [Mass/Vol] Normal mg/dL Normal [facility] WBC Auto (Bld) [#/Vol]Ordere d By: Enrique Lucas on 01-20-2023 WBC (Bld) [#/Vol] 7.4 10*3/uL 3.8-11.6 [facility] pH Auto test strip (U)Ordere d By: Enrique Lucas on 01-20-2023 pH (U) 6.0 [pH] 5.0-9.0 [facility] Office Visiton 01-09-2023 Follow-up visit [id number] Ada Kirkland 1990 F Date Provider Department Center 01/09/2023 [facility] Family History Problem Relation Age of Onset Heart attack Father 44 Coronary artery disease Father Clotting disorder Father Family Status - Relation Status Age at Father Alive Level of Service:[id number] [place] OFFICE/OUTPATIENT ESTABLISHED MOD MDM 30-39 MIN Normal [facility] HCG ( test) IABaldomeroarjunjacque d Ql (U)Ordered By: LITA BLACKMAN on 12-29-2022 HCG ( test) Ql (U) Negative [facility] HCG,Urineon 12-29-2022 Beta HCG ( test) Ql (U) Negative Normal [facility] Comment on above: Result Comment: PERF ORMED BY: [facility] [address] [place] [address] PATHOLOGIST CELL TESTER OLIMPIA MORA M.D. Performed By: #### U HCG #### [address] Bin 12-29-2022 L ------ Specimen: [id number] Received: 12/29/22 Status: FADIA Espinosa Num: [id number] Spec Type: Surgical Subm Dr: Dasha Garcia, Tissues: A Uterus w/ or w/o tubes ovaries except neoplastic or prolap (CERVIX, DARIO TU Procedures: , Gross/Micro L5 Age/ Patient Sex Location Account Attending Physician Morgan Kirkland 32/F [place] [id number] Dasha Garcia, DO SPEC NUM: [id number] RECD: 12/29/22 STATUS: FADIA JUSTIN NUM: [id number] STEVAN: 12/29/[address] [facility] [address]: Dasha Garcia DO ENTERED: 12/29/22 [facility] DR: SANJIV TYPE: Surgical DEPT: S ORDERED: HE/12, Gross/Micro L5 ORDERED: HE/12, Gross/Micro L5 Pathological Diagnosis Uterus, cervix, bilateral tubes, total hysterectomy with bilateral salpingectomy: - Cervix with focal mild erosion and minor chronic cervicitis without dysplasia - Corpus with moderately unevenly developed secretory endometrium of the persistent late phase type with marked denudations and hemorrhage of the superficial portion of the mucosa without hyperplasia or atypia identified - 1 incidentally noted dystrophic calcification in mucosa beneath the denuded surface - Incidental focal mild superficial adenomyosis - Fimbriated right fallopian tube without significant histopathological changes except 1 tiny Walthard cyst and 1 other tiny paratubal cyst - Fimbriated left fallopian tube also without any other significant histopathological findings Clinical Information 158 g left sided pelvic pain menorrhagia adenomyosis Specimen: [id number] Received: 12/29/22 Status: FADIA Espinosa Num: [id number] Spec Type: Surgical Subm Dr: Dasha Garcia DO Tissues: A Uterus w/ or w/o tubes ovaries except neoplastic or prolap (CERVIX, DARIO TU Procedures: , Gross/Micro L5 Patient: Morgan Kirkland [id number] (Continued) Specimen: [id number] Received: 12/29/22 (Continued) Signed (signature on file) Daniel Okeefe MD 12/30/222016 Specimen: [id number] Received: 12/29/22 Status: FADIA Espinosa Num: [id number] Spec Type: Surgical Subm Dr: Dasha Garcia DO Tissues: A Uterus w/ or w/o tubes ovaries except neoplastic or prolap (CERVIX, DARIO TU Procedures: , Gross/Micro L5 Patient: Morgan Kirkland [id number] (Continued) Specimen: [id number] Received: 12/29/22 (Continued) Gross Description Received in formalin labeled with the patient's name, date of and uterus, cervix, bilateral tubes is a 154 g, 9.8 x 6.7 x 4.9 cm uterus with attached bilateral fallopian tubes. The uterine serosa is purple-pink. The ectocervix is purple-pink, centrally hyperemic with a 1.3 cm slitlike os. The endocervix is conroy-red, glistening. The conroy-red endometrium averages 0.2 cm in thickness. The pink-conroy, trabecular myometrium measures up to 2.0 cm in thickness. No myometrial lesions or cystic change are identified. The right purple-yanez fimbriated fallopian tube measures 6.0 x 1.2 x 0.8 cm and has a pinpoint lumen on cut section. The left conroy-yanez, fimbriated fallopian tube measures 7.8 x 1.0 x 0.4 cm and has a pinpoint lumen on cut section. Manager Government sections are submitted in 8 cassettes as follows: A1 - Anterior cervix A2 - Posterior cervix A3-A4 - Anterior endomyometrium A5-A6 - Posterior endomyometrium A7 - Right fallopian tube A8 - Left fallopian tube Microscopic Description Eight H E slides reviewed. The microscopic examination confirms the diagnosis. CPT Codes 94651 Specimen: [id number] Received: 12/29/22 Status: FADIA Justin Num: [id number] Spec Type: Surgical Subm Dr: Dasha Garcia, DO Tissues: A Uterus w/ or w/o tubes ovaries except neoplastic or prolap (CERVIX, DARIO TU Procedures: HE/12, Gross/Micro L (more content not included)... Normal [facility] Activated partial thrombopla stin time (aPTT) in platelet poor plasma by coagulation aOrdered By: Dasha Garcia on 12-15-2022 aPTT Coag (PPP) [Time] 28.2 s 25.1-36.5 [facility] Comment on above: A hematocrit value g reater than 55% may lead to inaccurate results in coagulation testing. Patients having hematocrit values >55% require a special collection tube for coagulation studies. Please contact the laboratory at [phone] for redraw instructions. Basic Metabolic Panelon Anion gap [Moles/Vol] 8.5 mmol/L Normal 6.0-15.0 [facility] Comment on above: Performed By: #### B MP #### [address] Calcium [Mass/Vol] 9.4 mg/dL Normal 8.6-10.3 [facility] Comment on above: Result Comment: PERF ORMED BY: [place] [address] PATHOLOGIST CELL TESTER OLIMPIA MORA M.D. Performed By: #### B MP #### [place] [address] [place] Chloride [Moles/Vol] 105 mmol/L Normal 98-107 [facility] Comment on above: Performed By: #### B MP #### [place] [address] [place] CO2 [Moles/Vol] 28.6 mmol/L Normal 21.0-31.0 [facility] Comment on above: Performed By: #### B MP #### [place] [address] [place] Creatinine [Mass/Vol] 0.86 mg/dL Normal 0.60-1.20 [facility] Comment on above: Performed By: #### B MP #### [place] [address] [place] GFR/1.73 sq M.predicted MDRD (S/P/Bld) [Vol rate/Area] mL/min/{1.73_m2} Normal [facility] Comment on above: Performed By: #### B MP #### [place] [address] [place] Glucose [Mass/Vol] 90 mg/dL Normal 70-100 [facility] Comment on above: Result Comment: Foster Glucose Reference Range is dependent on time and content of last meal. Glucose of more than 200 mg/dL in a nonstressed, ambulatory subject supports the diagnosis of Diabetes Mellitus. ADA recommended reference range Performed By: #### B MP #### [place] [address] [place] Potassium [Moles/Vol] 4.1 mmol/L Normal 3.5-5.1 [facility] Comment on above: Performed By: #### B MP #### [place] [address] [place] Sodium [Moles/Vol] 138 mmol/L Normal 136-145 [facility] Comment on above: Performed By: #### B MP #### [facility] [address] Urea nitrogen [Mass/Vol] 9 mg/dL Normal 7-25 [facility] Comment on above: Performed By: #### B MP #### [facility] [address] Basophils Auto (Bld) [#/Vol] Ordered By: Dasha Garcia on 12-15-2022 Basophils (Bld) [#/Vol] 0.0 10*3/uL 0.0-0.2 [facility] Basophils/100 WBC Auto (Bld) Ordered By: Dasha Garcia on 12-15-2022 Basophils/100 WBC (Bld) 0.6 % . [facility] Calcium [Mass/volume] in Ser um or PlasmaOrdered By: Dasha Garcia on 12-15-2022 Calcium [Mass/Vol] 9.4 mg/dL 8.6-10.3 [facility] Carbon dioxide, total [Moles /volume] in Serum or PlasmaOrdered By: Dasha Garcia on 12-15-2022 CO2 [Moles/Vol] 28.6 mmol/L 21.0-31.0 [facility] Chloride [Moles/volume] in S misael or PlasmaOrdered By: Dasha Garcia on 12-15-2022 Chloride [Moles/Vol] 105 mmol/L 98-107 [facility] Complete Blood Count Auto Di ffon 12-15-2022 Basophils (Bld) [#/Vol] 0.0 10*3/uL Normal 0.0-0.2 [facility] Comment on above: Result Comment: PERF ORMED BY: [place] [address] PATHOLOGIST CELL TESTER OLIMPIA MORA M.D. Performed By: #### C BC #### [facility] [address] [place] [address] Basophils/100 WBC (Bld) 0.6 % Normal . [facility] Comment on above: Performed By: #### C BC #### [facility] [address] Eosinophils (Bld) [#/Vol] 0.2 10*3/uL Normal 0.0-0.45 [facility] Comment on above: Performed By: #### C BC #### [facility] [address] Eosinophils/100 WBC (Bld) 1.9 % Normal . [facility] Comment on above: Performed By: #### C BC #### [address] Erythrocyte distribution width (RBC) [Ratio] 13.0 % Normal 11.9-15.3 [facility] Comment on above: Performed By: #### C BC #### [address] Hematocrit (Bld) [Volume fraction] 40.0 % Normal 34.0-46.4 [facility] Comment on above: Performed By: #### C BC #### [address] Hemoglobin (Bld) [Mass/Vol] 13.6 g/dL Normal 11.8-15.4 [facility] Comment on above: Performed By: #### C BC #### [address] Lymphocytes (Bld) [#/Vol] 2.3 10*3/uL Normal 1.00-4.8 [facility] Comment on above: Performed By: #### C BC #### [address] Lymphocytes/100 WBC (Bld) 28.8 % Normal . [facility] Comment on above: Performed By: #### C BC #### [address] MCH (RBC) [Entitic mass] 30.0 pg Normal 24.7-34.3 [facility] Comment on above: Performed By: #### C BC #### [facility] [address] MCV (RBC) [Entitic vol] 88.1 fL Normal 80-100 [facility] Comment on above: Performed By: #### C BC #### [facility] [address] Mean Corpuscular HGB Conc 34.0 g/dL Normal 32.0-35.0 [facility] Comment on above: Performed By: #### C BC #### [address] Monocytes (Bld) [#/Vol] 0.4 10*3/uL Normal 0.0-0.8 [facility] Comment on above: Performed By: #### C BC #### [address] Monocytes/100 WBC (Bld) 5.1 % Normal . [facility] Comment on above: Performed By: #### C BC #### [address] Neutrophils (Bld) [#/Vol] 5.2 10*3/uL Normal 1.8-7.7 [facility] Comment on above: Performed By: #### C BC #### [address] Neutrophils/100 WBC (Bld) 63.6 % Normal . [facility] Comment on above: Performed By: #### C BC #### [address] NRBC% 0.1 /100{WBC} Normal 0-0.5 [facility] Comment on above: Performed By: #### C BC #### [address] Platelet mean volume (Bld) [Entitic vol] 8.2 fL Normal 6.3-10.7 [facility] Comment on above: Performed By: #### C BC #### [place] [address] [place] Platelets (Bld) [#/Vol] 235 10*3/uL Normal 150-450 [facility] Comment on above: Performed By: #### C BC #### [facility] [address] RBC (Bld) [#/Vol] 4.53 10*6/uL Normal 3.60-5.00 [facility] Comment on above: Performed By: #### C BC #### [facility] [address] WBC (Bld) [#/Vol] 8.1 10*3/uL Normal 3.8-11.6 [facility] Comment on above: Performed By: #### C BC #### [facility] [address] Creatinine [Mass/volume] in Serum or PlasmaOrdered By: Dasha Garcia on 12-15-2022 Creatinine [Mass/Vol] 0.86 mg/dL 0.60-1.20 [facility] Eosinophils Auto (Bld) [#/Vo l]Ordered By: Dasha Garcia on 12-15-2022 Eosinophils (Bld) [#/Vol] 0.2 10*3/uL 0.0-0.45 [facility] Eosinophils/100 WBC Auto (Bl d)Ordered By: Dasha Garcia on 12-15-2022 Eosinophils/100 WBC (Bld) 1.9 % . [facility] Erythrocyte distribution wid th Auto (RBC) [Ratio]Ordered By: Dasha Garcia on 12-15-2022 Erythrocyte distribution width (RBC) [Ratio] 13.0 % 11.9-15.3 [facility] Glucose [Mass/volume] in Ser um or PlasmaOrdered By: Dasha Garcia on 12-15-2022 Glucose [Mass/Vol] 90 mg/dL 70-100 [facility] Comment on above: ADA recommended refe rence rangeRandom Glucose Reference Range is dependent on time and content of last meal. Glucose of more than 200 mg/dL in a nonstressed, ambulatory subject supports the diagnosis of Diabetes Mellitus. Hematocrit Auto (Bld) [Volum e fraction]Ordered By: Dasha Garcia on 12-15-2022 Hematocrit (Bld) [Volume fraction] 40.0 % 34.0-46.4 [facility] Hemoglobin [Mass/volume] in BloodOrdered By: Dasha Garcia on 12-15-2022 Hemoglobin (Bld) [Mass/Vol] 13.6 g/dL 11.8-15.4 [facility] INR in Platelet poor plasma by Coagulation assayOrdered By: Dasha Garcia on 12-15-2022 INR Coag (PPP) [Relative time] 0.9 {INR} [facility] Comment on above: INR Therapeutic Rang e A) Pre- and Peroperative OAT started two weeks before surgery. NOT HIP SURGERY: 1.5 - 2.5 HIP SURGERY: 2 - 3B) Primary and secondary prevention of venous THROMBOSIS: 2 - 3C) Active venous thrombosis, pulmonary embolismand prevention of recurrent venous thrombosis: 2 - 3D) Prevention of arterial thromboembolismincluding patients with mechanical heart valves: 3 - 4.5 Leukocytes [#/volume] correc dave for nucleated erythrocytes in Blood by Automated counOrdered By: Dasha Garcia on 12-15-2022 WBC corrected for nucl RBC Auto (Bld) [#/Vol] 8.1 10*3/uL 3.8-11.6 [facility] Lymphocytes Auto (Bld) [#/Vo l]Ordered By: Dasha Garcia on 12-15-2022 Lymphocytes (Bld) [#/Vol] 2.3 10*3/uL 1.00-4.8 [facility] Lymphocytes/100 WBC Auto (Bl d)Ordered By: Dasha Garcia on 12-15-2022 Lymphocytes/100 WBC (Bld) 28.8 % . [facility] MCH Auto (RBC) [Entitic mass ]Ordered By: Dasha Garcia on 12-15-2022 MCH (RBC) [Entitic mass] 30.0 pg 24.7-34.3 [facility] MCHC Auto (RBC) [Mass/Vol]Or dered By: Dasha Garcia on 12-15-2022 MCHC (RBC) [Mass/Vol] 34.0 g/dL 32.0-35.0 [facility] MCV Auto (RBC) [Entitic vol] Ordered By: Dasha Garcia on 12-15-2022 MCV (RBC) [Entitic vol] 88.1 fL 80-100 [facility] Monocytes Auto (Bld) [#/Vol] Ordered By: Dasha Garcia on 12-15-2022 Monocytes (Bld) [#/Vol] 0.4 10*3/uL 0.0-0.8 [facility] Monocytes/100 WBC Auto (Bld) Ordered By: Dasha Garcia on 12-15-2022 Monocytes/100 WBC (Bld) 5.1 % . [facility] Neutrophils Auto (Bld) [#/Vo l]Ordered By: Dasha Garcia on 12-15-2022 Neutrophils (Bld) [#/Vol] 5.2 10*3/uL 1.8-7.7 [facility] Neutrophils/100 WBC Auto (Bl d)Ordered By: Dasha Garcia on 12-15-2022 Neutrophils/100 WBC (Bld) 63.6 % . [facility] No Panel InformationOrdered By: Dasha Garcia on 12-15-2022 Estimated GFR (CKD-EPI) > 60.0 mL/Min [facility] Creatinine Clearance (Chem N/A [facility] Nucleated erythrocytes [Pres ence] in Blood by Automated countOrdered By: Dasha Garcia on 12-15-2022 Nucleated RBC Auto Ql (Bld) 0.1 /100{WBC} 0-0.5 [facility] PST Type and Screenon 2022 ABO and Rh group Nom (Bld) Blood group A Rh(D) positive Normal [facility] Comment on above: Order Comment: Date of Surgery: [id number] Partial Thromboplastin Timeo n 12-15-2022 aPTT Coag (Bld) [Time] 28.2 s Normal 25.1-36.5 [facility] Comment on above: Result Comment: A he matocrit value greater than 55% may lead to inaccurate results in coagulation testing. Patients having hematocrit values >55% require a special collection tube for coagulation studies. Please contact the laboratory at [phone] for redraw instructions. PERFORMED BY: [place] [id number] PATHOLOGIST CELL TESTER OLIMPIA MORA M.D. Performed By: #### P T, PTT #### [facility] [address] [place], [place] [id number] [facility] Platelet mean volume Auto (B ld) [Entitic vol]Ordered By: Dasha Garcia on 12-15-2022 Platelet mean volume (Bld) [Entitic vol] 8.2 fL 6.3-10.7 [facility] Platelets Auto (Bld) [#/Vol] Ordered By: Dasha Garcia on 12-15-2022 Platelets (Bld) [#/Vol] 235 10*3/uL 150-450 [facility] Potassium [Moles/volume] in Serum or PlasmaOrdered By: Dasha Gacria on 12-15-2022 Potassium [Moles/Vol] 4.1 mmol/L 3.5-5.1 [facility] Prothrombin Time INRon 12-15 INR Coag (PPP) [Relative time] 0.9 {INR} Normal [facility] Comment on above: Result Comment: INR Therapeutic Range A) Pre- and Peroperative OAT started two weeks before surgery. NOT HIP SURGERY: 1.5 - 2.5 HIP SURGERY: 2 - 3 B) Primary and secondary prevention of venous THROMBOSIS: 2 - 3 C) Active venous thrombosis, pulmonary embolism and prevention of recurrent venous thrombosis: 2 - 3 D) Prevention of arterial thromboembolism including patients with mechanical heart valves: 3 - 4.5 Performed By: #### P T, PTT #### [facility] [address] [place], [place] [id number] [facility] PT Coag (PPP) [Time] 11.3 s Normal 9.0-12.9 [facility] Comment on above: Result Comment: A he matocrit value greater than 55% may lead to inaccurate results in coagulation testing. Patients having hematocrit values >55% require a special collection tube for coagulation studies. Please contact the laboratory at [phone] for redraw instructions. Performed By: #### P T, PTT #### [facility] [address] [place], [place] [id number] [facility] Prothrombin time (PT)Ordered By: Dasha Garcia on 12-15-2022 PT Coag (PPP) [Time] 11.3 s 9.0-12.9 [facility] Comment on above: A hematocrit value g reater than 55% may lead to inaccurate results in coagulation testing. Patients having hematocrit values >55% require a special collection tube for coagulation studies. Please contact the laboratory at [phone] for redraw instructions. RBC Auto (Bld) [#/Vol]Ordere d By: Dasha Gacria on 12-15-2022 RBC (Bld) [#/Vol] 4.53 10*6/uL 3.60-5.00 [facility] Serum or plasma anion gap de terminationOrdered By: Dasha Garcia on 12-15-2022 Anion gap [Moles/Vol] 8.5 mmol/L 6.0-15.0 [facility] Sodium [Moles/volume] in Ser um or PlasmaOrdered By: Dasha Garcia on 12-15-2022 Sodium [Moles/Vol] 138 mmol/L 136-145 [facility] Urea nitrogen [Mass/volume] in Serum or PlasmaOrdered By: Dasha Garcia on 12-15-2022 Urea nitrogen [Mass/Vol] 9 mg/dL 7-25 [facility] WBC Auto (Bld) [#/Vol]Ordere d By: Dasha Garcia on 12-15-2022 WBC (Bld) [#/Vol] 8.1 10*3/uL 3.8-11.6 [facility] 36on 10-24-2022 36 It is still connecti ng and sensing well, reviewed her loop. Likely breast tissue inhibiting being able to feel. For now we will ct monitor , since device is sensing ECG well it does not seem to be migrated. If she is concerned we can order a CXR just to confirm placement I am ok with that Normal [facility] Follow-Upon 09-10-2022 Follow-Up [id number] Ada Kirkland 1990 F Date Provider Department Center 09/10/2022 Danilo6-ELANA RAMIREZ CARD [facility] Family History Problem Relation Age of Onset Heart attack Father 44 Coronary artery disease Father Clotting disorder Father Family Status - Relation Status Age at Father Alive Level of Service:66501 [place] OFFICE/OUTPATIENT ESTABLISHED MOD MDM 30-39 MIN Reason for Visit and Comments: Dizziness [833049] - Lightheaded and dizziness for a few weeks. Did stop last shiv. Is not as bad. Comes and goes- Wondering if she might have POTS. Family members has POTS. Has LOOP monitor in currently Normal [facility] Office Visiton 08-29-2022 Follow-up visit [id number] Ada Kirkland 1990 F Date Provider Department Center 08/29/2022 [id number] GRIFFIN CARD [facility] Family History Problem Relation Age of Onset Heart attack Father 44 Coronary artery disease Father Clotting disorder Father Family Status - Relation Status Age at Father Alive Level of Service:11024 [place] POSTOP FOLLOW UP VISIT RELATED TO ORIGINAL PX Normal [facility] HPon 08-21-2022 [facility] Electrophysiology Consult Note Reason for visit: Palpitations 07/15/22 Patient here for 3 mo follow up palpitations. She had labs and ECG last week for pre-surgery testing. She is having kidney stone removed on . She says palpitations have improved but there were episodes her HR went to 160bpm at rest. Denies chest pain and SOB. Review of Systems Cardiovascular: Positive for palpitations. All other systems reviewed and are negative. Prior HPI: Morgan Kirkland is a 31 y.o. year old with past medical history including anxiety, fibromyalgia, palpitations, and Sjogren's disease who is referred to EP clinic for palpitation and findings of event monitor. patient started on metoprolol at some point for palpitation which improved partially. Patient had event monitor in December reviewed by Juan Ramirez CNP showed sinus tachycardia, atrial arrhythmia. Patient reported increasing pain episode frequency of palpitation heart rate up to 150 associated with chest pressure for few minutes. Otherwise no chest pain or shortness of breath no PND no orthopnea no syncope. She is not on any medication for Sjogren's disease or fibromyalgia. She had complete work-up in the past including echocardiography, routine stress test which were unremarkable. she reported that she had echo done in 12/2021. Denied caffeine intake. Event monitor was reviews by me. There are episodes of long RP tachycardia withrate oif 124 bpm at 6-6:30am. No VT seen or SVT seen. PMH: Past Medical History: Diagnosis Date Palpitations PSH: Past Surgical History: Procedure Laterality Date TONSILLECTOMY SH: Social Determinants of Health Tobacco Use: Low Risk Smoking Tobacco Use: Never Smokeless Tobacco Use: Never Passive Exposure: Not on file Alcohol Use: Not on file Financial Resource Strain: Not on file Food Insecurity: Not on file Transportation Needs: Not on file Physical Activity: Not on file Stress: Not on file Social Connections: Not on file Intimate Partner Violence: Not on file Depression: Not on file Housing Stability: Not on file Allergies: Allergies Allergen Reactions Penicillin Unknown Weight: 113kg Visit Vitals BP 116/82 (BP Location: Right arm, Patient Position: Sitting) Pulse 63 Ht 1.727 m (5' 8 ) Wt 113 kg (250 lb) SpO2 97% BMI 38.01 kg/m??? Smoking Status Never BSA 2.33 m??? Meds: Current Outpatient Medications on File Prior to Visit Medication Sig Dispense Refill metoprolol tartrate (Lopressor) 25 mg tablet TAKE 3 TABLETS BY MOUTH IN THE MORNING AND AT BEDTIME 180 tablet 3 No current facility-administered medications on file prior to visit. ROS: Cardio Basic Cardiovascular Symptoms: no lightheadedness, no leg edema, no syncope, no orthopnea, no PND, no claudication, Constitutional Constitutional: no fever, no night sweats, no significant weight gain, no significant weight loss, no exercise intolerance Eyes Eyes: no dry eyes, no irritation, no vision change ENMT Ears: no difficulty hearing, no ear pain Nose: no frequent nosebleeds, Mouth/Throat: no sore throat, no bleeding gums, no snoring, no dry mouth, no mouth ulcers, no oral abnormalities, no teeth problems Respiratory Respiratory: no cough, no wheezing, no coughing up blood, no sleep apnea Musculoskeletal Musculoskeletal: no muscle aches, no muscle weakness, joint pain+, no back pain, no swelling in the extremities Integumentary Skin no rash, no ulcer, no varicosities, no discoloration, no pruritus Neurologic Neurologic: no loss of consciousness, no weakness, no numbness, no seizures, no dizziness, no headaches Psychiatric Psych: no depression, feeling safe in relationship, no alcohol abuse, Hematologic/Lymphatic Hematologic/Lymphatic no swollen glands, no bruising Physical Exam: Constitutional General Appearance: well-nourished, well-developed, appears stated age Level of Distress: comfortable Psychiatric Mental Status: alert, normal affect Orientation: oriented to time, place, and person Insight: good judgement Eyes Lids and Conjunctivae: non-injected, no xanthelasma ENMT Ears: no lesions on external ear Nose: no lesions on external nose Oropharynx: no cyanosis, no pallor Neck Neck: supple, trachea midline Carotid Arteries: bilateral normal upstroke, no bruits Jugular Veins: normal jugular venous pressure Thyroid: not enlarged Lungs Respiratory Effort: unlabored Chest Exam: normal curvature, no thoracic deformity Auscultation: clear, no wheezing, no rales, no rhonchi Cardiovascular Rate And Rhythm: regular Heart Sounds: normal S1, normal s2, no gallop Systolic Murmur: not heard Diastolic Murmur: not heard Extremities: no cyanosis, no edema, no peripheral signs of emboli Peripheral Pulses Radial Pulse: normal Abdomen Inspection and Palpation: soft, non distended, no bruit, non tender Musculoskeletal Inspection: no joint swell (more content not included)... Normal [facility] CALCULI, URINARYon 3 2,8 Dihydroxyadenine Normal [facility] Comment on above: Performed By: #### C ALCULI #### [facility] Laboratory [address] [place] [address] Dr. Lela Okeefe Ammonium Acid Urate Normal [facility] Comment on above: Performed By: #### C ALCULI #### [facility] [address] [address] [address] Lela Okeefe Bilirubin Ql (U) Normal [facility] Comment on above: Performed By: #### C ALCULI #### [facility] [address] [address] [address] Lela Okeefe Ca Oxalate Dihydrate 60 % Normal [facility] Comment on above: Performed By: #### C ALCULI #### [facility] [address] [address] [address] Lela Okeefe CaHPO4 (Brushite) Normal [facility] Comment on above: Performed By: #### C ALCULI #### [facility] [address] [address] [address] Lela Okeefe Calcium Bilirubinate Normal [facility] Comment on above: Performed By: #### C ALCULI #### [facility] [address] [address] [address] Lela Okeefe Calcium Carbonate [facility] Comment on above: Performed By: #### C ALCULI #### [facility] [address] [address] [address] Lela Okeefe Calcium Oxalate Monohydrate 30 % [facility] Comment on above: Performed By: #### C ALCULI #### [facility] [address] [address] [address] Lela Okeefe Calcium Palmitate [facility] Comment on above: Performed By: #### C ALCULI #### [facility] [address] [address] [address] Lela Okeefe Calcium Phosphate [facility] Comment on above: Performed By: #### C ALCULI #### [facility] [address] [address] [address] Lela Okeefe Calcium Stearate [facility] Comment on above: Performed By: #### C ALCULI #### [facility] [address] [address] [address] Lela Okeefe Carbonate Apatite [facility] Comment on above: Performed By: #### C ALCULI #### [facility] [address] [address] [address] Lela Okeefe Cellular Material [facility] Comment on above: Performed By: #### C ALCULI #### [facility] [address] [address] [address] Lela Okeefe Cholesterol [facility] Comment on above: Performed By: #### C ALCULI #### [facility] [address] [address] [address] Lela Okeefe Color (U) Conroy [facility] Comment on above: Performed By: #### C ALCULI #### [facility] [address] [address] [address] Lela Okeefe Comment Comment Normal [facility] Comment on above: Result Comment: Calc ium phosphate (hydroxyl form) includes hydroxyapatite, amorphous calcium phosphate, and whitlockite. Hydroxyapatite is the most common of the calcium phosphate salts found in human kidney stones. Performed By: #### C ALCULI #### [facility] [address] [address] [address] Lela Okeefe Result Comment: Calc ulus received wet. Wet calculi must be dried before analysis, which delays reporting of results. Leaving calculi wet (such as water, saline, blood, urine) may lead to changes in composition. Comment: Comment Normal [facility] Comment on above: Result Comment: Renita quintanilla questions regarding Calculi Analysis contact [employer] at: [phone]. Performed By: #### C ALCULI #### [facility] [address] [place] [address] Dr. Lela Okeefe Composition Comment Normal [facility] Comment on above: Result Comment: Perc entage (Represents the % composition) Performed By: #### C ALCULI #### [facility] [address] [address] [address] Lela Okeefe Cystine Normal [facility] Comment on above: Performed By: #### C ALCULI #### [facility] [address] [place] [address] Dr. Lela Okeefe Disclaimer: Comment Normal [facility] Comment on above: Result Comment: This test was developed and its performance characteristics determined by [employer]. It has not been cleared or approved by the Food and Drug Administration. Performed By: #### C ALCULI #### [facility] [address] [address] [address] Lela Okeefe Dried Blood Normal [facility] Comment on above: Performed By: #### C ALCULI #### [facility] [address] [place] [address] Dr. Lela Okeefe Drug or Metabolite Normal [facility] Comment on above: Performed By: #### C ALCULI #### [facility] [address] [place] [address] Dr. Lela Okeefe Hydroxyapatite 10 % Normal [facility] Comment on above: Performed By: #### C ALCULI #### [facility] [address] [address] [address] Lela Okeefe Mg NH4 PO4 (Struvite) [facility] Comment on above: Performed By: #### C ALCULI #### [facility] [address] [address] [address] Lela Okeefe MgHPO4 (Newberyite) [facility] Comment on above: Performed By: #### C ALCULI #### [facility] [address] [address] [address] Lela Okeefe Other component(s) [facility] Comment on above: Performed By: #### C ALCULI #### [facility] [address] [address] [address] Lela Okeefe PDF . [facility] Comment on above: Performed By: #### C ALCULI #### [facility] [address] [place] [address] Dr. Lela Okeefe Photo Comment [facility] Comment on above: Result Comment: Phot ograph will follow under a separate cover Performed By: #### C ALCULI #### [facility] [address] [place] [address] Dr. Lela Okeefe Please note: Comment [facility] Comment on above: Result Comment: Calc mirza report will follow via computer, mail or dock or pier laborer delivery. Performed By: #### C ALCULI #### [facility] [address] [address] [address] Lela Okeefe Size 5x5 [facility] Comment on above: Result Comment: Sing le piece received. Performed By: #### C ALCULI #### [facility] [address] [address] [address] Lela Okeefe Sodium Acid Urate [facility] Comment on above: Performed By: #### C ALCULI #### [facility] [address] [address] [address] Lela Okeefe Source Comment [facility] Comment on above: Result Comment: Righ t Ureter Performed By: #### C ALCULI #### [facility] [address] [address] [address] Lela Okeefe Triamterene [facility] Comment on above: Performed By: #### C ALCULI #### [facility] [address] [place] [address] Dr. Lela Okeefe Uric Acid [facility] Comment on above: Performed By: #### C ALCULI #### [facility] [address] [address] [address] Lela Okeefe Uric Acid Dihydrate [facility] Comment on above: Performed By: #### C ALCULI #### [facility] [address] [address] [address] Lela Okeefe Weight 37 mg [facility] Comment on above: Performed By: #### C ALCULI #### [facility] [address] [place] [address] Dr. Lela Okeefe Xanthine [facility] Comment on above: Performed By: #### C ALCULI #### [facility] [address] [place] [address] Dr. Lela Okeefe Consultation Noteon 07-19-19 23 Consultation Note [id number]:127 Normal [facility] Consultation Note [id number]:127 Normal [facility] Operative Reporton Operative Report [id number]#1.00CD:127 Normal [facility] PREG HCG QUALon 07-17-2022 , QUAL Negative Normal NEGATIVE [facility] Comment on above: Performed By: #### C BC #### [facility] [address] [place] [address] Dr. Lela Okeefe Documentationon 07-16-2022 Documentation [id number] Ada Kirkland 1990 F Date Provider Department Center 07/16/2022 Joel-BARAZI, ELANA MC [facility] Family History Problem Relation Age of Onset Heart attack Father 44 Coronary artery disease Father Clotting disorder Father Family Status - Relation Status Age at Father Alive Normal [facility] Lab Reportson 07-15-2022 Lab Reports [id number]:127 Normal [facility] Office Visiton 07-15-2022 Follow-up visit [id number] Ada Kirkland 1990 F Date Provider Department Center 07/15/2022 OG ERVIN [facility] Family History Problem Relation Age of Onset Heart attack Father 44 Coronary artery disease Father Clotting disorder Father Family Status - Relation Status Age at Father Alive Level of Service:50057 MA OFFICE/OUTPATIENT ESTABLISHED MOD MDM 30-39 MIN Normal [facility] CBC AUTO DIFFon 07-11-2022 BASO # 0.0 103/ul Normal 0.0-0.1 [facility] Comment on above: Performed By: #### C BC #### [facility] [address] [place] [address] Dr. Lela Okeefe Basophils/100 WBC (Bld) 0.5 % Normal 0.2-2.0 [facility] Comment on above: Performed By: #### C BC #### [facility] [address] [place] [address] Dr. Lela Okeefe EO # 0.1 103/ul Normal 0.0-0.7 [facility] Comment on above: Performed By: #### C BC #### [facility] [address] [place] [address] Dr. Lela Okeefe Eosinophils/100 WBC (Bld) 1.2 % Normal 0.9-7.0 [facility] Comment on above: Performed By: #### C BC #### [facility] [address] [place] [address] Dr. Lela Okeefe Erythrocyte distribution width (RBC) [Ratio] 12.3 % Normal 11.0-15.0 [facility] Comment on above: Performed By: #### C BC #### [facility] [address] [place] [address] Dr. Lela Okeefe Hematocrit (Bld) [Volume fraction] 41.7 % Normal 36.0-48.0 [facility] Comment on above: Performed By: #### C BC #### [facility] [address] [place] [address] Dr. Lela Okeefe Hemoglobin (Bld) [Mass/Vol] 14.1 g/dL Normal 12.0-16.0 [facility] Comment on above: Performed By: #### C BC #### [facility] [address] [place] [address] Dr. Lela Okeefe IG # 0.01 10e3/ul Normal 0.00-0.03 [facility] Comment on above: Performed By: #### C BC #### [facility] [address] [place] [address] Dr. Lela Okeefe IG % 0.2 % Normal 0.0-0.5 [facility] Comment on above: Performed By: #### C BC #### [facility] [address] [place] [address] Dr. Lela Okeefe LYMPH # 2.1 103/ul Normal 1.2-3.8 [facility] Comment on above: Performed By: #### C BC #### [facility] [address] [place] [address] Dr. Lela Okeefe Lymphocytes/100 WBC (Bld) 36.5 % Normal 20.5-60.0 [facility] Comment on above: Performed By: #### C BC #### [facility] [address] [place] [address] Dr. Lela Okeefe MANUAL DIFF REQ NO Normal [facility] Comment on above: Performed By: #### C BC #### [facility] [address] [place] [address] Dr. Lela Okeefe MCH (RBC) [Entitic mass] 30.2 pg Normal 26.7-34.0 [facility] Comment on above: Performed By: #### C BC #### [facility] [address] [place] [address] Dr. Lela Okeefe MCHC (RBC) [Mass/Vol] 33.8 g/dL Normal 29.9-35.2 [facility] Comment on above: Performed By: #### C BC #### [facility] [address] [place] [address] Dr. Lela Okeefe MCV (RBC) [Entitic vol] 89.3 fL Normal 81.0-99.0 [facility] Comment on above: Performed By: #### C BC #### [facility] [address] [place] [address] Dr. Lela Okeefe MONO # 0.5 103/ul Normal 0.3-0.8 [facility] Comment on above: Performed By: #### C BC #### [facility] [address] [place] [address] Dr. Lela Okeefe Monocytes/100 WBC (Bld) 8.4 % Normal 1.7-12.0 [facility] Comment on above: Performed By: #### C BC #### [facility] [address] [place] [address] Dr. Lela Okeefe NEUT # 3.0 103/ul Normal 1.4-6.5 [facility] Comment on above: Performed By: #### C BC #### [facility] [address] [place] [address] Dr. Lela Okeefe Neutrophils/100 WBC (Bld) 53.2 % Normal 43.0-75.0 [facility] Comment on above: Performed By: #### C BC #### [facility] [address] [place] [address] Dr. Lela Okeefe Platelet mean volume (Bld) [Entitic vol] 9.7 fL Normal 9.5-13.5 [facility] Comment on above: Performed By: #### C BC #### [facility] [address] [place] [address] Dr. Lela Okeefe PLT 234 103/ul Normal 150-450 [facility] Comment on above: Performed By: #### C BC #### [facility] [address] [place] [address] Dr. Lela Okeefe RBC 4.67 106/ul Normal 4.20-5.40 [facility] Comment on above: Performed By: #### C BC #### [facility] [address] [place] [address] Dr. Lela Okeefe WBC 5.6 103/ul Normal 4.0-11.0 [facility] Comment on above: Performed By: #### C BC #### [facility] [address] [place] [address] Dr. Lela Okeefe PROF CHEM 8 (BAS METB)on Anion gap [Moles/Vol] 12.5 mmol/L Normal [facility] Comment on above: Performed By: #### C BC #### [facility] [address] [place] [address] Dr. Lela Okeefe Calcium [Mass/Vol] 9.1 mg/dL Normal 8.5-10.1 [facility] Comment on above: Performed By: #### C BC #### [facility] [address] [place] [address] Dr. Lela Okeefe Chloride [Moles/Vol] 105 mmol/L Normal 98-107 [facility] Comment on above: Performed By: #### C BC #### [facility] [address] [place] [address] Dr. Lela Okeefe CO2 [Moles/Vol] 28.7 mmol/L Normal 21.0-32.0 [facility] Comment on above: Performed By: #### C BC #### [facility] [address] [place] [address] Dr. Lela Okeefe Creatinine [Mass/Vol] 0.73 mg/dL Normal 0.55-1.02 [facility] Comment on above: Performed By: #### C BC #### [facility] [address] [place] [address] Dr. Lela Okeefe EGFR-AF CONGOLESE >60 Normal >=60 [facility] Comment on above: Performed By: #### C BC #### [facility] [address] [place] [address] Dr. Lela Okeefe EGFR-NON AF CONGOLESE >60 Normal >=60 [facility] Comment on above: Performed By: #### C BC #### [facility] [address] [address] [address] Lela Okeefe Glucose [Mass/Vol] 81 mg/dL Normal 74-106 [facility] Comment on above: Performed By: #### C BC #### [facility] [address] [address] [address] Lela Okeefe Potassium [Moles/Vol] 4.2 mmol/L Normal 3.5-5.1 [facility] Comment on above: Performed By: #### C BC #### [facility] [address] [address] [address] Lela Okeefe Sodium [Moles/Vol] 142 mmol/L Normal 136-145 [facility] Comment on above: Performed By: #### C BC #### [facility] [address] [place] [address] Dr. Lela Okeefe Urea nitrogen [Mass/Vol] 11.0 mg/dL Normal 7.0-18.0 [facility] Comment on above: Performed By: #### C BC #### [facility] [address] [place] [address] Dr. Lela Okeefe Urea nitrogen/Creatinine [Mass ratio] 15.1 mg/mg Normal [facility] Comment on above: Performed By: #### C BC #### [facility] [address] [place] [address] Dr. Lela Okeefe PROTIMEon 07-11-2022 INR Coag (PPP) [Relative time] 0.97 {INR} Normal [facility] Comment on above: Performed By: #### C BC #### [facility] [address] [place] [address] Dr. Lela Okeefe INR GUIDELINES SEE BELOW Normal [facility] Comment on above: Result Comment: BAIRON RED INR: 2.0 - 3.0 CONDITIONS NOT LISTED BELOW 2.5 - 3.5 FOR PROSTHETIC HEART VALVE REPLACEMENT 2.5 - 3.5 RECURRENT THROMBOSIS Performed By: #### C BC #### [facility] [address] [place] [address] Dr. Lela Okeefe PT Coag (PPP) [Time] 10.3 s Normal 9.0-11.6 [facility] Comment on above: Performed By: #### C BC #### [facility] [address] [place], [place] [address] Dr. Lela Okeefe PTTon 07-11-2022 aPTT Coag (Bld) [Time] 27.9 s Normal 22.3-36.2 Th [facility] Comment on above: Performed By: #### C BC #### [facility] [address] [place], [place] [address] Dr. Lela Okeefe Consent for Procedure/Surger yon 07-01-2022 Consent for Procedure/Surgery [id number]#[id number]:127 Normal [facility] Pre-Certification Formon Pre-Certification Form [id number]#[id number]:127 Normal [facility] RAD - CT Reporton 06-30-2022 RAD - CT Report [id number]#[id number]:127 Normal [facility] CT ABD/PELVIS WO CONon 06-02 CT ABD/PELVIS WO CON EXAMINATION: CT ABD /PELVIS WO CON, 06/02/2022 2:27 PM EDT HISTORY: Kidney stone acute left flank pain COMPARISON: CT abdomen and pelvis 12/14/2019. TECHNIQUE: CT scan of the abdomen and pelvis was performed without IV contrast. CT dose reduction technique was used, including Automated Exposure Control. FINDINGS: Lack of intravenous contrast limits evaluation. ABDOMEN: The liver, gallbladder, spleen, pancreas, and adrenal glands are unremarkable. No renal stones or collecting system dilatation. The ureters are nondilated. However, within the distal right ureter there is a 0.4 cm stone. Evaluation of the bowel is limited given the absence of oral contrast. There are few scattered colonic diverticula. No bowel obstruction. The appendix is nondilated. The aorta is normal caliber. No enlarged abdominal lymph nodes or free abdominal fluid. Small fat-containing umbilicus hernia. Pelvis: Unremarkable bladder. No enlarged pelvic lymph nodes or free pelvic fluid. No aggressive sclerotic or lytic osseous lesions. There is bilateral sacroiliitis. IMPRESSION: 1. Nonobstructing stone within the distal right ureter. 2. Few scattered colonic diverticula. IMPRESSION: 1. Electronically authenticated by: IRIS FUNEZ Date: 2022-06-02 15:16 Normal [facility] RAD - MISCon 05-23-2022 [facility] [id number]#[id number]:127 Normal [facility] [id number]#[id number]:127 Normal [facility] XR KUB 1 VIEWon 05-20-2022 XR KUB 1 VIEW EXAMINATION: XR KUB 1 VIEW HISTORY: Kidney stone ; left flank pain, pressure in bladder COMPARISON: XR KUB 11/13/2019 FINDINGS: KIDNEY/URETER - RIGHT: No visible renal stones. KIDNEY/URETER - LEFT: No visible renal stones. PELVIS: Small calcification within lower right pelvis; possible ureteral stone. No visible stones within left ureter. BOWEL: No abnormal dilation or deviation. BONES: No acute abnormality. OTHER: Negative. No abnormal gaseous collections. IMPRESSION: 1. Possible small distal right ureteral stone. It is noted that the patient describes left flank pain. Electronically authenticated by: ZAHRA MCCLENDON Date: 2022-05-20 14:39 Normal [facility] Ambulatory Visit Summaryon 0 05-19-2022 Ambulatory Visit Summary MORGAN KIRKLAND :1990 Visit Date:05/19/2022 Ambulatory Visit Instructions Your Diagnosis History of kidney stones Urinary frequency Urinary urgency Left sided abdominal pain Recurrent UTI Tests Performed Urnls Dip Stick Auto w/o Microscopy POC 55855 XR Abdomen 1 View -- Results Pending -- Please visit your patient portal for your results or contact your primary care physician. Your Care Team Attending Physician - MIKY SAMPSON, Clark Roldan Primary Care Physician - DAVID NEWBERRY MD This Is Your Medications List Contact prescribing physician if questions or concerns metoprolol (Lopressor 25 mg oral tablet) Procedures Performed Tonsillectomy and adenoidectomy (2012). Discharge Vitals Heart Rate (Peripheral) 51 Respiratory Rate 16 Blood Pressure 113/71 Height 172 cm Height 68 in Weight 104 kg Weight 228.8 lb BMI 35.15 What to do next You Need to Schedule the Following Appointments Follow Up with MIKY SAMPSON, ISMAEL Leiva When: Where: [facility] [address] [place] [address]- Medications What When Instructions Unchanged metoprolol (Lopressor 25 mg oral tablet) Contact prescribing physician if questions or concerns Test Results Urnls Dip Stick Auto w/o Microscopy POC 05250 (05/19/2022) Bilirubin Urine Dipstick - Negative Blood Urine Dipstick - Negative Glucose Urine Dipstick - Negative Ketones Urine Dipstick - Negative Leukocytes Urine Dipstick - Trace Nitrite Urine Dipstick - Negative Protein Urine Dipstick - Negative Specific [place] Urine Dipstick - <=1.005 Urine Appearance Urine Dipstick - Clear Urine Color Urine Dipstick - Light yellow Urobilinogen Urine Dipstick - Normal 0.2-1 EU/dl pH Urine Dipstick - 6 Allergies penicillin (Hives) Problems Ongoing - Any problem that you are currently receiving treatment for. Acute bronchitis Acute right flank pain Anxiety Back pain BMI 36.0-36.9,adult Bursitis Chronic GERD Contact dermatitis Eczema Epigastric pain Fibromyalgia Gross hematuria History of kidney stones Hypertension Infection of skin due to methicillin resistant Staphylococcus aureus (MRSA) Kidney stone Left sided abdominal pain MRSA cellulitis Otitis media Palpitations Recurrent UTI Sjogren's syndrome Spontaneous ecchymoses Syncope Tachycardia Urinary frequency Urinary urgency UTI symptoms Verruca vulgaris [employer] Dietary Guidelines to Help Prevent Kidney Stones Kidney stones are deposits of minerals and salts that form inside your kidneys. Your risk of developing kidney stones may be greater depending on your diet, your lifestyle, the medicines you take, and whether you have certain medical conditions. Most people can reduce their chances of developing kidney stones by following the instructions below. Depending on your overall health and the type of kidney stones you tend to develop, your dietitian may give you more specific instructions. What are tips for following this plan? Reading food labels ? Choose foods with no salt added or low-salt labels. Limit your sodium intake to less than 1500 mg per day. ? Choose foods with calcium for each meal and snack. Try to eat about 300 mg of calcium at each meal. Foods that contain 200?500 mg of calcium per serving include: ? 8 oz (237 ml) of milk, fortified nondairy milk, and fortified fruit juice. ? 8 oz (237 ml) of kefir, yogurt, and soy yogurt. ? 4 oz (118 ml) of tofu. ? 1 oz of cheese. ? 1 cup (300 g) of dried figs. ? 1 cup (91 g) of cooked broccoli. ? 1?3 oz can of sardines or mackerel. ? Most people need 1000 to 1500 mg of calcium each day. Talk to your dietitian about how much calcium is recommended for you. Shopping ? Buy plenty of fresh fruits and vegetables. Most people do not need to avoid fruits and vegetables, even if they contain nutrients that may contribute to kidney stones. ? When shopping for convenience foods, choose: ? Whole pieces of fruit. ? Premade salads with dressing on the side. ? Low-fat fruit and yogurt smoothies. ? Avoid buying frozen meals or prepared deli foods. ? Look for foods with live cultures, such as yogurt and kefir. Cooking ? Do not add salt to food when cooking. Place a salt shaker on the table and allow each person to add his or her own salt to taste. ? Use vegetable protein, such as beans, textured vegetable protein (TVP), or tofu instead of meat in pasta, casseroles, and soups. Meal planning ? Eat less salt, if told by your dietitian. To do this: ? Avoid eating processed or premade food. ? Avoid eating fast food. ? Eat less animal protein, including cheese, meat, poultry, or fish, if told by your dietitian. To do this: ? Limit the number of times you have meat, poultry, fish, or cheese each week. Eat a diet free of meat at least 2 days (more content not included)... Normal [facility] Patient Educationon 05-20-19 Patient Education Urology Dietary Guidelines to Help Prevent Kidney Stones Kidney stones are deposits of minerals and salts that form inside your kidneys. Your risk of developing kidney stones may be greater depending on your diet, your lifestyle, the medicines you take, and whether you have certain medical conditions. Most people can reduce their chances of developing kidney stones by following the instructions below. Depending on your overall health and the type of kidney stones you tend to develop, your dietitian may give you more specific instructions. What are tips for following this plan? Reading food labels ? Choose foods with no salt added or low-salt labels. Limit your sodium intake to less than 1500 mg per day. ? Choose foods with calcium for each meal and snack. Try to eat about 300 mg of calcium at each meal. Foods that contain 200?500 mg of calcium per serving include: ? 8 oz (237 ml) of milk, fortified nondairy milk, and fortified fruit juice. ? 8 oz (237 ml) of kefir, yogurt, and soy yogurt. ? 4 oz (118 ml) of tofu. ? 1 oz of cheese. ? 1 cup (300 g) of dried figs. ? 1 cup (91 g) of cooked broccoli. ? 1?3 oz can of sardines or mackerel. ? Most people need 1000 to 1500 mg of calcium each day. Talk to your dietitian about how much calcium is recommended for you. Shopping ? Buy plenty of fresh fruits and vegetables. Most people do not need to avoid fruits and vegetables, even if they contain nutrients that may contribute to kidney stones. ? When shopping for convenience foods, choose: ? Whole pieces of fruit. ? Premade salads with dressing on the side. ? Low-fat fruit and yogurt smoothies. ? Avoid buying frozen meals or prepared deli foods. ? Look for foods with live cultures, such as yogurt and kefir. Cooking ? Do not add salt to food when cooking. Place a salt shaker on the table and allow each person to add his or her own salt to taste. ? Use vegetable protein, such as beans, textured vegetable protein (TVP), or tofu instead of meat in pasta, casseroles, and soups. Meal planning ? Eat less salt, if told by your dietitian. To do this: ? Avoid eating processed or premade food. ? Avoid eating fast food. ? Eat less animal protein, including cheese, meat, poultry, or fish, if told by your dietitian. To do this: ? Limit the number of times you have meat, poultry, fish, or cheese each week. Eat a diet free of meat at least 2 days a week. ? Eat only one serving each day of meat, poultry, fish, or seafood. ? When you prepare animal protein, cut pieces into small portion sizes. For most meat and fish, one serving is about the size of one deck of cards. ? Eat at least 5 servings of fresh fruits and vegetables each day. To do this: ? Keep fruits and vegetables on hand for snacks. ? Eat 1 piece of fruit or a handful of berries with breakfast. ? Have a salad and fruit at lunch. ? Have two kinds of vegetables at dinner. ? Limit foods that are high in a substance called oxalate. These include: ? Spinach. ? Rhubarb. ? Beets. ? Potato chips and kyrgyz fries. ? Nuts. ? If you regularly take a diuretic medicine, make sure to eat at least 1?2 fruits or vegetables high in potassium each day. These include: ? Avocado. ? Banana. ? Fiatt, prune, carrot, or tomato juice. ? Baked potato. ? Cabbage. ? Beans and split peas. General instructions ? Drink enough fluid to keep your urine clear or pale yellow. This is the most important thing you can do. ? Talk to your health care provider and dietitian about taking daily supplements. Depending on your health and the cause of your kidney stones, you may be advised: ? Not to take supplements with vitamin C. ? To take a calcium supplement. ? To take a daily probiotic supplement. ? To take other supplements such as magnesium, fish oil, or vitamin B6. ? Take all medicines and supplements as told by your health care provider. ? Limit alcohol intake to no more than 1 drink a day for non women and 2 drinks a day for men. One drink equals 12 oz of beer, 5 oz of wine, or 1? oz of hard liquor. ? Lose weight if told by your health care provider. Work with your dietitian to find strategies and an eating plan that works best for you. What foods are not recommended? Limit your intake of the following foods, or as told by your dietitian. Talk to your dietitian about specific foods you should avoid based on the type of kidney stones and your overall health. Grains Breads. Bagels. Rolls. Baked goods. Salted crackers. Cereal. Pasta. Vegetables Spinach. Rhubarb. Beets. Canned vegetables. Pickles. Olives. Meats and other protein foods Nuts. Nut butters. Large portions of meat, poultry, or fish. Salted or cured meats. Deli meats. Hot dogs. Sausages. Dairy Cheese. Beverages Regular soft drinks. Regular vegetable juice. Seasonings and other foods Seasoning blends with salt. Tigist zuñiga (more content not included)... Normal [facility] Urology Office/Clinic Noteon 05-19-2022 Urology Office/Clinic Note Chief Complaint Urgeny/Frequency/Lt abdominal pain HPI Staff PT is here today due to increased urgency and frequency along with Lt side pain. Pt last seen in our office 12/16/19 due to Kidney Stone, Recurrent UTI & Gross Hematuria. For the past 3wks, intermittent pressure while urinating. Does not feel like she is emptying bladder. PVR today 134ml Denies visible blood in urine. Did go to PCP 2wks ago, UA NEG. History of Present Illness Tests reviewed: reviewed UA. I have reviewed the previous health record information and history for this patient from Dr. Clemens. I have reviewed and verified the staff HPI to be accurate for this encounter. There have been no associated fever, chills, flank pain, or blood in the urine. Denies any urinary infections since last encounter. Review of Systems PHQ Score Initial Depression Screen Score: 0 ROS - Provider Constitutional: denies weight loss, denies hot flashes. Eyes: denies eye problems. Gastrointestinal: denies nausea, denies vomiting. Cardiovascular: denies chest pain or angina. Integumentary: no dryness Musculoskeletal: denies musculoskeletal symptoms. ENMT: denies otolaryngeal symptoms. Respiratory: no shortness of breath. Heme/Lymph: denies easy bleeding tendency, denies easy bruising tendency. Psychiatric: no confusion, no anxiety. Genitourinary: See HPI. Physical Exam Vitals & Measurements HR: 51(Peripheral) RR: 16 BP: 113/71 HT: 68 in HT: 172 cm WT: 104 kg WT: 228.8 lb BMI: 35.15 General Appearance: alert , no acute distress, well nourished, well developed female. Genitourinary: bladder nonpalpable, no flank pain. Assessment/Plan 1. History of kidney stones (Z87.442: Personal history of urinary calculi) CT scan done 12/14/19 was neg for stones. UA today shows trace leuks, neg for blood. Increased urgency, frequency, and left-sided pain off/on for 3 weeks. Almost constant pressure over bladder. Occasional left-sided pain, sometimes with movement sometimes without. Saw PCP 2 weeks ago, UA was neg. Pain not in back. Pain level 4/5. Occasional association of pain with urination. Does not feel like she empties completely all of the time. PVR today 134 cc. Does have a hx of kidney stones, possible that pt has a stone. Has not had any recent imaging. All sxs could be explained by possible ureteral stone. States she has been having ongoing heart problems unrelated to abdominal pain. PE: more tender on left side than right. Follow up after KUB or sooner if needed. Pt understands and agrees with plan. -KUB to check for stones, if neg, will proceed with CT scan -if KUB + for stones, will start on Flomax for MET 2. Urinary frequency (R35.0: Frequency of micturition) See #1. 3. Urinary urgency (R39.15: Urgency of urination) See #1. 4. Left sided abdominal pain (R10.9: Unspecified abdominal pain) See #1. 5. Recurrent UTI (N39.0: Urinary tract infection, site not specified) Not voicing any infections since last encounter. Follow-up With When Contact Information MIKY SAMPSON, Clark Roldan, [facility] [address], [place] [address]- Additional Instructions: f/u after KUB Patient Education Dietary Guidelines to Help Prevent Kidney Stones I, Mary Jane Sawyer, personally scribed for Dr. Clemens on 05/19/2022 10:48:45. . Documentation recorded by the scribe, Mary Jane Sawyer, accurately reflects the services(s) I performed and decisions made by me. Authenticated by Dr. Clemens on 05/19/2022 10:52:50. Problem List/Past Medical History Ongoing Acute bronchitis Acute right flank pain Anxiety Back pain BMI 36.0-36.9,adult Bursitis Chronic GERD Contact dermatitis Eczema Epigastric pain Fibromyalgia Gross hematuria History of kidney stones Hypertension Infection of skin due to methicillin resistant Staphylococcus aureus (MRSA) Kidney stone Left sided abdominal pain MRSA cellulitis Otitis media Palpitations Recurrent UTI Sjogren's syndrome Spontaneous ecchymoses Syncope Tachycardia Urinary frequency Urinary urgency UTI symptoms Verruca vulgaris Historical No qualifying data Procedure/Surgical History Tonsillectomy and adenoidectomy (2012). Medications Lopressor 25 mg oral tablet Allergies penicillin (Hives) Social History Alcohol - Denies Alcohol Use, 11/09/2020 Substance Abuse - Denies Substance Abuse, 11/09/2020 Tobacco Never (less than 100 in lifetime) Tobacco Use:. Never Smokeless Tobacco Use:., 05/19/2022 Family History Arthritis: Mother. Asthma: Father. Breast cancer: Grandparent. Diabetes: Grandparent. Glaucoma: Father. Heart problem: Father and Grandparent. Hypertension: Mother. Kidney stone: Grandparent. Migraine: Mother. Prostate cancer: Grandparent. Immunizations Vaccine Date Status SARS-CoV-2 (COVID-19) mRNA-1273 vaccine 04/25/2020 Recorded SARS-CoV-2 (COVID-19) mRNA-1273 vac (more content not included)... Normal [facility] Comment on above: Result Comment: Elec tronically Signed By: Clark CLEMENS MD\.br\Date and Time Signed: 05/19/22 10:52 EST\.br\Electronically Co-Signed By: Mary Jane Sawyer\.br\Date and Time Co-Signed: 05/19/22 10:49 EST Office Visiton 04-29-2022 Follow-up visit [id number] Ada Kirkland 1990 F Date Provider Department [facility] Family History Problem Relation Age of Onset Heart attack Father 44 Coronary artery disease Father Clotting disorder Father Family Status - Relation Status Age at Father Alive Level of Service:58718 MA OFFICE/OUTPATIENT NEW MODERATE MDM 45-59 MINUTES (GC) Normal [facility] C3 and C4 COMPLEMENTon 04-15 Complement C3, Serum 191 mg/dL Critically high 82-167 [facility] Comment on above: Performed By: #### C BC #### [facility] [address] [address] [address] Lela Okeefe Complement C4, Serum 38 mg/dL Normal 12-38 [facility] Comment on above: Performed By: #### C BC #### [facility] [address] [address] [address] Lela Okeeef Orders Onlyon 04-15-2022 Orders Only [id number] Ada Kirkland Phillip 1990 F Date Provider Department Center 04/15/2022 [facility] Family History Problem Relation Age of Onset Heart attack Father 44 Coronary artery disease Father Clotting disorder Father Family Status - Relation Status Age at Father Alive Normal [facility] T3, TOTAL (TRIIODOTHYRONINE) on 04-13-2022 T3, TOTAL 109 ng/dL Normal 71-180 [facility] Comment on above: Performed By: #### C BC #### [facility] [id number] Lela Okeefe US THYROIDon 04-13-2022 US THYROID EXAMINATION: US THYR OID HISTORY: Simple goiter COMPARISON: No relevant comparison available. FINDINGS: RIGHT LOBE: 4 mm TR4 within inferior pole. Normal size and homogeneous echotexture of lobe. Lobe size: 5.8 x 1.6 x 1.6 cm LEFT LOBE: Normal size and echotexture. Lobe size: 5.7 x 1.4 x 1.7 cm ISTHMUS: Normal size and echotexture. Thickness: 3 mm IMPRESSION: 1. Homogeneous thyroid gland with no overtly suspicious nodules. Consider follow-up in 2-3 years to document stability. TR4 (moderately suspicious): If > 1.0 cm Follow-up ultrasound in 1, 2, 3, and 5 years. If > 1.5 cm fine needle aspiration (FNA). Electronically authenticated by: ZAHRA MCCLENDON Date: 2022-04-13 20:29 Normal [facility] CBC AUTO DIFFon 04-12-2022 BASO # 0.1 103/ul Normal 0.0-0.1 [facility] Comment on above: Performed By: #### C BC #### [facility] [id number] Lela Okeefe Basophils/100 WBC (Bld) 0.6 % Normal 0.2-2.0 [facility] Comment on above: Performed By: #### C BC #### [facility] [address] [place] [address] Dr. Lela Okeefe EO # 0.0 103/ul Normal 0.0-0.7 [facility] Comment on above: Performed By: #### C BC #### [facility] [address] [place] [address] Dr. Lela Okeefe Eosinophils/100 WBC (Bld) 0.4 % Critically low 0.9-7.0 [facility] Comment on above: Performed By: #### C BC #### [facility] [address] [place] [address] Dr. Lela Okeefe Erythrocyte distribution width (RBC) [Ratio] 11.9 % Normal 11.0-15.0 [facility] Comment on above: Performed By: #### C BC #### [facility] [address] [place] [address] Dr. Lela Okeefe Hematocrit (Bld) [Volume fraction] 41.1 % Normal 36.0-48.0 [facility] Comment on above: Performed By: #### C BC #### [facility] [address] [place] [address] Dr. Lela Okeefe Hemoglobin (Bld) [Mass/Vol] 14.9 g/dL Normal 12.0-16.0 [facility] Comment on above: Performed By: #### C BC #### [facility] [address] [place] [address] Dr. Lela Okeefe IG # 0.03 10e3/ul Normal 0.00-0.03 [facility] Comment on above: Performed By: #### C BC #### [facility] [address] [place] [address] Dr. Lela Okeefe IG % 0.3 % Normal 0.0-0.5 [facility] Comment on above: Performed By: #### C BC #### [facility] [address] [place] [address] Dr. Lela Okeefe LYMPH # 1.1 103/ul Critically low 1.2-3.8 [facility] Comment on above: Performed By: #### C BC #### [facility] [address] [place] [address] Dr. Lela Okeefe Lymphocytes/100 WBC (Bld) 12.6 % Critically low 20.5-60.0 [facility] Comment on above: Performed By: #### C BC #### [facility] [address] [place] [address] Dr. Lela Okeefe MANUAL DIFF REQ NO Normal [facility] Comment on above: Performed By: #### C BC #### [facility] [address] [place] [address] Dr. Lela Okeefe MCH (RBC) [Entitic mass] 29.6 pg Normal 26.7-34.0 [facility] Comment on above: Performed By: #### C BC #### [facility] [address] [place] [address] Dr. Lela Okeefe MCHC (RBC) [Mass/Vol] 36.3 g/dL Critically high 29.9-35.2 [facility] Comment on above: Performed By: #### C BC #### [facility] [address] [place] [address] Dr. Lela Okeefe MCV (RBC) [Entitic vol] 81.7 fL Normal 81.0-99.0 [facility] Comment on above: Performed By: #### C BC #### [facility] [address] [place] [address] Dr. Lela Okeefe MONO # 0.9 103/ul Critically high 0.3-0.8 [facility] Comment on above: Performed By: #### C BC #### [facility] [address] [place] [address] Dr. Lela Okeefe Monocytes/100 WBC (Bld) 10.0 % Normal 1.7-12.0 [facility] Comment on above: Performed By: #### C BC #### [facility] [address] [place] [address] Dr. Lela Okeefe NEUT # 6.8 103/ul Critically high 1.4-6.5 [facility] Comment on above: Performed By: #### C BC #### [facility] [address] [place] [address] Dr. Lela Okeefe Neutrophils/100 WBC (Bld) 76.1 % Critically high 43.0-75.0 [facility] Comment on above: Performed By: #### C BC #### [facility] [address] [place] [address] Dr. Lela Okeefe Platelet mean volume (Bld) [Entitic vol] 9.5 fL Normal 9.5-13.5 [facility] Comment on above: Performed By: #### C BC #### [facility] [address] [place] [address] Dr. Lela Okeefe PLT 232 103/ul Normal 150-450 [facility] Comment on above: Performed By: #### C BC #### [facility] [address] [place] [address] Dr. Lela Okeefe RBC 5.03 106/ul Normal 4.20-5.40 [facility] Comment on above: Performed By: #### C BC #### [facility] [address] [place] [address] Dr. Lela Okeefe WBC 9.0 103/ul Normal 4.0-11.0 [facility] Comment on above: Performed By: #### C BC #### [facility] [address] [place] [address] Dr. Lela Okeefe CPKon 04-12-2022 CK [Catalytic activity/Vol] 43 U/L Normal 26-192 [facility] Comment on above: Performed By: #### C BC #### [facility] [address] [place] [address] Dr. Lela Okeefe CREATININEon 04-12-2022 Creatinine [Mass/Vol] 0.85 mg/dL Normal 0.55-1.02 [facility] Comment on above: Performed By: #### C BC #### [facility] [address] [place] [address] Dr. Lela Okeefe EGFR-AF CONGOLESE >60 Normal >=60 [facility] Comment on above: Performed By: #### C BC #### [facility] [address] [address] [address] Lela Okeefe EGFR-NON AF CONGOLESE >60 Normal >=60 [facility] Comment on above: Performed By: #### C BC #### [facility] [address] [place] [address] Dr. Lela Okeefe SED RATE WESTERGRENon 2022 SED RATE 53 mm/hr Critically high <=20 [facility] Comment on above: Performed By: #### C BC #### [facility] [address] [place] [address] Dr. Lela Okeefe UA RANDOM W/MICROSCOPICon BACTERIA NONE SEEN Normal NONE SEEN [facility] Comment on above: Performed By: #### U AMIC #### [facility] [address] [place] [address] Dr. Lela Okeefe Bilirubin Ql (U) Negative Normal NEGATIVE [facility] Comment on above: Performed By: #### U AMIC #### [facility] [address] [place] [address] Dr. Lela Okeefe CAST NONE SEEN Normal NONE SEEN [facility] Comment on above: Performed By: #### U AMIC #### [facility] [address] [place] [address] Dr. Lela Okeefe Clarity (U) CLEAR Normal CLEAR [facility] Comment on above: Performed By: #### U AMIC #### [facility] [address] [place] [address] Dr. Lela Okeefe Color (U) YELLOW Normal YELLOW [facility] Comment on above: Performed By: #### U AMIC #### [facility] [address] [place] [address] Dr. Lela Okeefe Crystals LM Nom (Urine sed) NONE SEEN Normal NONE SEEN [facility] Comment on above: Performed By: #### U AMIC #### [facility] [address] [place] [address] Dr. Lela Okeefe Epithelial cells LM Ql (Urine sed) FEW Abnormal NONE SEEN /RARE [facility] Comment on above: Performed By: #### U AMIC #### [facility] [address] [address] [address] Lela Okeefe Glucose Ql (U) Negative Normal NEGATIVE [facility] Comment on above: Performed By: #### U AMIC #### [facility] [address] [address] [address] Lela Okeefe Hemoglobin Ql (U) Negative Normal NEGATIVE [facility] Comment on above: Performed By: #### U AMIC #### [facility] [address] [address] [address] Lela Okeefe Ketones Ql (U) Negative Normal NEGATIVE [facility] Comment on above: Performed By: #### U AMIC #### [facility] [address] [address] [address] Lela Okeefe LEUKOCYTES Negative Normal NEGATIVE [facility] Comment on above: Performed By: #### U AMIC #### [facility] [address] [place] [address] Dr. Lela Okeefe MUCOUS TRACE Abnormal NONE SEEN [facility] Comment on above: Performed By: #### U AMIC #### [facility] [address] [place] [address] Dr. Lela Okeefe Nitrite Ql (U) Negative Normal NEGATIVE [facility] Comment on above: Performed By: #### U AMIC #### [facility] [address] [place] [address] Dr. Lela Okeefe pH (U) 6.0 [pH] Normal 5-9 [facility] Comment on above: Performed By: #### U AMIC #### [facility] [address] [place] [address] Dr. Lela Okeefe RBC 0-2 Normal 0-2 [facility] Comment on above: Performed By: #### U AMIC #### [facility] [address] [place] [address] Dr. Lela Okeefe SPEC GRAVITY 1.020 Normal 1.005-<=1. 025 [facility] Comment on above: Performed By: #### U AMIC #### [facility] [address] [place] [address] Dr. Lela Okeefe UA PROTEIN Negative Normal NEGATIVE/ TRACE [facility] Comment on above: Performed By: #### U AMIC #### [facility] [address] [place] [address] Dr. Lela Okeefe Urobilinogen Qn (U) 0.2 {Fidelia'U}/dL Normal 0.2 - 1. 0 [facility] Comment on above: Performed By: #### U AMIC #### [facility] [address] [place] [address] Dr. Lela Okeefe WBC NONE SEEN Normal NONE SEEN [facility] Comment on above: Performed By: #### U AMIC #### [facility] [address] [place] [address] Dr. Lela Okeefe 36on 04-10-2022 36 Not at the moment bu t I will discuss her monitor results with dr. Barone to see if there is anything he may recommend before then Normal [facility] CBC AUTO DIFFon 04-10-2022 BASO # 0.0 103/ul Normal 0.0-0.1 [facility] Comment on above: Performed By: #### C BC #### [facility] [address] [place] [address] Dr. Lela Okeefe Basophils/100 WBC (Bld) 0.3 % Normal 0.2-2.0 [facility] Comment on above: Performed By: #### C BC #### [facility] [address] [place] [address] Dr. Lela Okeefe EO # 0.0 103/ul Normal 0.0-0.7 [facility] Comment on above: Performed By: #### C BC #### [facility] [address] [place] [address] Dr. Lela Okeefe Eosinophils/100 WBC (Bld) 0.1 % Critically low 0.9-7.0 [facility] Comment on above: Performed By: #### C BC #### [facility] [address] [place] [address] Dr. Lela Okeefe Erythrocyte distribution width (RBC) [Ratio] 11.9 % Normal 11.0-15.0 [facility] Comment on above: Performed By: #### C BC #### [facility] [address] [place] [address] Dr. Lela Okeefe Hematocrit (Bld) [Volume fraction] 46.1 % Normal 36.0-48.0 [facility] Comment on above: Performed By: #### C BC #### [facility] [address] [place] [address] Dr. Lela Okeefe Hemoglobin (Bld) [Mass/Vol] 14.5 g/dL Normal 12.0-16.0 [facility] Comment on above: Performed By: #### C BC #### [facility] [address] [place] [address] Dr. Lela Okeefe IG # 0.01 10e3/ul Normal 0.00-0.03 [facility] Comment on above: Performed By: #### C BC #### [facility] [address] [place] [address] Dr. Lela Okeefe IG % 0.1 % Normal 0.0-0.5 [facility] Comment on above: Performed By: #### C BC #### [facility] [address] [place] [address] Dr. Lela Okeefe LYMPH # 1.1 103/ul Critically low 1.2-3.8 [facility] Comment on above: Performed By: #### C BC #### [facility] [address] [place] [address] Dr. Lela Okeefe Lymphocytes/100 WBC (Bld) 11.7 % Critically low 20.5-60.0 [facility] Comment on above: Performed By: #### C BC #### [facility] [address] [place] [address] Dr. Lela Okeefe MANUAL DIFF REQ NO Normal [facility] Comment on above: Performed By: #### C BC #### [facility] [address] [place] [address] Dr. Lela Okeefe MCH (RBC) [Entitic mass] 29.8 pg Normal 26.7-34.0 [facility] Comment on above: Performed By: #### C BC #### [facility] [address] [place], [place] [id number] Dr. Lela Okeefe MCHC (RBC) [Mass/Vol] 31.5 g/dL Normal 29.9-35.2 [facility] Comment on above: Performed By: #### C BC #### [facility] [address] [place] [address] Dr. Lela Okeefe MCV (RBC) [Entitic vol] 94.7 fL Normal 81.0-99.0 [facility] Comment on above: Performed By: #### C BC #### [facility] [address] [place] [address] Dr. Lela Okeefe MONO # 0.8 103/ul Normal 0.3-0.8 [facility] Comment on above: Performed By: #### C BC #### [facility] [address] [place] [address] Dr. Lela Okeefe Monocytes/100 WBC (Bld) 7.9 % Normal 1.7-12.0 [facility] Comment on above: Performed By: #### C BC #### [facility] [address] [place] [address] Dr. Lela Okeefe NEUT # 7.7 103/ul Critically high 1.4-6.5 [facility] Comment on above: Performed By: #### C BC #### [facility] [address] [place] [address] Dr. Lela Okeefe Neutrophils/100 WBC (Bld) 79.9 % Critically high 43.0-75.0 [facility] Comment on above: Performed By: #### C BC #### [facility] [address] [place] [address] Dr. Lela Okeefe Platelet mean volume (Bld) [Entitic vol] 10.2 fL Normal 9.5-13.5 [facility] Comment on above: Performed By: #### C BC #### [facility] [address] [place] [address] Dr. Lela Okeefe PLT 230 103/ul Normal 150-450 [facility] Comment on above: Performed By: #### C BC #### [facility] [address] [place] [address] Dr. Lela Okeefe RBC 4.87 106/ul Normal 4.20-5.40 [facility] Comment on above: Performed By: #### C BC #### [facility] [address] [place] [address] Dr. Lela Okeefe WBC 9.6 103/ul Normal 4.0-11.0 [facility] Comment on above: Performed By: #### C BC #### [facility] [address] [place] [address] Dr. Lela Okeefe FREE T3on 04-10-2022 FREE T3 2.59 pg/mlL Normal 2.18-3.98 [facility] Comment on above: Performed By: #### C BC #### [facility] [address] [place] [address] Dr. Lela Okeefe FREE T4on 04-10-2022 Free T4 [Mass/Vol] 1.00 ng/dL Normal 0.76-1.46 [facility] Comment on above: Performed By: #### F T4 #### [facility] [address] [place] [address] Dr. Lela Okeefe PROF CHEM 8 (BAS METB)on Anion gap [Moles/Vol] 12.3 mmol/L Normal [facility] Comment on above: Performed By: #### B MP, TSH #### [facility] [address] [place] [address] Dr. eLla Okeefe Calcium [Mass/Vol] 9.4 mg/dL Normal 8.5-10.1 [facility] Comment on above: Performed By: #### B MP, TSH #### [facility] [address] [place] [address] Dr. Lela Okeefe Chloride [Moles/Vol] 102 mmol/L Normal 98-107 [facility] Comment on above: Performed By: #### B MP, TSH #### [facility] [address] [place] [address] Dr. Lela Okeefe CO2 [Moles/Vol] 28.3 mmol/L Normal 21.0-32.0 [facility] Comment on above: Performed By: #### B MP, TSH #### [facility] [address] [place] [address] Dr. Lela Okeefe Creatinine [Mass/Vol] 0.77 mg/dL Normal 0.55-1.02 [facility] Comment on above: Performed By: #### B MP, TSH #### [facility] [address] [place] [address] Dr. Lela Okeefe EGFR-AF CONGOLESE >60 Normal >=60 [facility] Comment on above: Performed By: #### B MP, TSH #### [facility] [address] [place] [address] Dr. Lela Okeefe EGFR-NON AF CONGOLESE >60 Normal >=60 [facility] Comment on above: Performed By: #### B MP, TSH #### [facility] [address] [place] [address] Dr. Lela Okeefe Glucose [Mass/Vol] 101 mg/dL Normal 74-106 [facility] Comment on above: Performed By: #### B MP, TSH #### [facility] [address] [place] [address] Dr. Lela Okeefe Potassium [Moles/Vol] 4.6 mmol/L Normal 3.5-5.1 [facility] Comment on above: Performed By: #### B MP, TSH #### [facility] [address] [place] [address] Dr. Lela Okeefe Sodium [Moles/Vol] 138 mmol/L Normal 136-145 [facility] Comment on above: Performed By: #### B MP, TSH #### [facility] [address] [place] [address] Dr. Lela Okeefe Urea nitrogen [Mass/Vol] 11.0 mg/dL Normal 7.0-18.0 [facility] Comment on above: Performed By: #### B MP, TSH #### [facility] [address] [place] [address] Dr. Lela Okeefe Urea nitrogen/Creatinine [Mass ratio] 14.3 mg/mg Normal [facility] Comment on above: Performed By: #### B MP, TSH #### [facility] [address] [place], [place] [address] Dr. Lela Okeefe TSHon 04-10-2022 TSH 0.346 uIU/mL Critically low 0.358-3.74 0 [facility] Comment on above: Performed By: #### B MP, TSH #### [facility] [address] [place], [place] [address] Dr. Lela Okeefe Office Visiton 03-28-2022 Follow-up visit [id number] Ada Kirkland 1990 F Date Provider Department Center 03/28/2022 ELANA MORALES [facility] Family History Problem Relation Age of Onset Heart attack Father 44 Coronary artery disease Father Clotting disorder Father Family Status - Relation Status Age at Father Alive Level of Service:76496 MA OFFICE/OUTPATIENT ESTABLISHED MDM 10-19 MIN Normal [facility] ECHOCARDIO M/2D COMPLETEon 1 ECHOCARDIO M/2D COMPLETE Patient: MORGAN KIRKLAND Exam Date: 12/24/2021 : 1990 Gender:F Ordering : ROYER PEARCE Admission #: [id number] Family : DR DAVID NEWBERRY M.D. Order #: [id number] CLICK HERE TO VIEW EXAM ECHOCARDIOGRAM REPORT PROCEDURE: CARDIO PULMONARY ECHOCARDIO M/2D COMP INDICATIONS: Palpitations COMPARISON: None. DESCRIPTION: COMPLETE ECHOCARDIOGRAM Real-time transthoracic echocardiography with 2D, M-mode, spectral and color flow Doppler performed. QUALITY: Technical quality was good. 68 225# BP 126/72 LEFT VENTRICLE: Normal chamber size. Normal left ventricular wall thickness. LV EF: Normal left ventricular ejection fraction, (>55%). DIASTOLIC: Normal diastolic function. ATRIAL SEPTUM: Inadequately seen. LEFT ATRIUM: Normal chamber size. RIGHT ATRIUM: Normal chamber size. RIGHT VENTRICLE: Normal chamber size. Normal right ventricular systolic function. TRICUSPID VALVE: Normal mobility and thickness. No stenosis with no regurgitation. Unable to assess right-sided pressures due to lack of measurable tricuspid regurgitation. MITRAL VALVE: Normal mobility and thickness. No evidence of mitral valve stenosis. There is no mitral annular calcification. No mitral regurgitation. AORTIC VALVE: Normal trileaflet appearance. No visible sclerosis. Normal leaflet mobility. No evidence of aortic valve stenosis. No aortic regurgitation. AORTIC ROOT: Normal diameter and appearance. PULMONIC VALVE: Normal thickness and mobility. No stenosis. Trivial regurgitation. PERICARDIUM: No evidence of pericardial effusion. IVC: Collapses with inspirations. CONCLUSION: Global left ventricular systolic function is normal; visually estimated ejection fraction is 55 to 60%. No significant wall motion abnormalities. Normal diastolic function. The right ventricle is normal in size and systolic function. No significant valvular abnormalities. Adult Echocardiography Procedure Report Left Ventricle LVEDD (3.7 - 5.6 cm): 4.28 cm LVESD (2.2 - 4.0 cm): 3.19 cm LVIVS thickness (0.6 - 1.2 cm): 0.68 cm LVPW thickness (0.5 - 1.0 cm): 0.71 cm e': 0.13 m/s E - e': 4.13 LVOT Max Gradient: 1.96 mm[Hg] Peak Velocity (LVOT): 0.70 m/s LVOT Diameter 2.28 cm Left Atrium LA Volume Index (2D A2C): 49.68 ml, 49.68 ml Left Atrium Systolic Dimension: 2.93 cm Mitral Valve MV E to A Ratio: 1.03 Mitral Valve A-Wave Peak Velocity: 0.52 m/s Mitral Valve E-Wave Peak Velocity: 0.54 m/s Right Ventricle Aorta AO Root Diam: 3.47 cm Aortic Valve AoV Area (Peak Sam): 2.61 cm2, 2.61 cm2 Peak Velocity(Antegrade Flow): 1.10 m/s Peak Gradient(Antegrade Flow): 4.84 mm[Hg] Tricuspid Valve Peak Velocity: 0.48 m/s Pulmonic Valve Peak Velocity: 0.79 m/s, 0.81 m/s Peak Gradient: 2.49 mm[Hg], 2.61 mm[Hg] Right Atrium Right Atrium Systolic Pressure: 41.13 ml, 41.13 ml Dictated by: Emerson Stinson M.D. on 12/24/2021 at 15:11 Approved by: Emerson Stinson M.D. on 12/24/2021 at 15:14 Normal [facility] CBC AUTO DIFFon 11-23-2021 BASO # 0.0 103/ul Normal 0.0-0.1 [facility] Comment on above: Performed By: #### C BC #### [facility] [address] [address] [address] Lela Okeefe Basophils/100 WBC (Bld) 0.4 % Normal 0.2-2.0 [facility] Comment on above: Performed By: #### C BC #### [facility] [address] [address] [address] Lela Okeefe EO # 0.1 103/ul Normal 0.0-0.7 [facility] Comment on above: Performed By: #### C BC #### [facility] [address] [place] [address] Dr. Lela Okeefe Eosinophils/100 WBC (Bld) 1.4 % Normal 0.9-7.0 [facility] Comment on above: Performed By: #### C BC #### [facility] [address] [place] [address] Dr. Lela Okeefe Erythrocyte distribution width (RBC) [Ratio] 12.0 % Normal 11.0-15.0 [facility] Comment on above: Performed By: #### C BC #### [facility] [address] [place] [address] Dr. Lela Okeefe Hematocrit (Bld) [Volume fraction] 43.0 % Normal 36.0-48.0 [facility] Comment on above: Performed By: #### C BC #### [facility] [address] [place] [address] Dr. Lela Okeefe Hemoglobin (Bld) [Mass/Vol] 14.4 g/dL Normal 12.0-16.0 [facility] Comment on above: Performed By: #### C BC #### [facility] [address] [place] [address] Dr. Lela Okeefe IG # 0.02 10e3/ul Normal 0.00-0.03 [facility] Comment on above: Performed By: #### C BC #### [facility] [address] [place] [address] Dr. Lela Okeefe IG % 0.3 % Normal 0.0-0.5 [facility] Comment on above: Performed By: #### C BC #### [facility] [address] [place] [address] Dr. Lela Okeefe LYMPH # 2.1 103/ul Normal 1.2-3.8 [facility] Comment on above: Performed By: #### C BC #### [facility] [address] [place] [address] Dr. Lela Okeefe Lymphocytes/100 WBC (Bld) 29.2 % Normal 20.5-60.0 [facility] Comment on above: Performed By: #### C BC #### [facility] [address] [place] [address] Dr. Lela Okeefe MANUAL DIFF REQ NO Normal [facility] Comment on above: Performed By: #### C BC #### [facility] [address] [place] [address] Dr. Lela Okeefe MCH (RBC) [Entitic mass] 29.7 pg Normal 26.7-34.0 [facility] Comment on above: Performed By: #### C BC #### [facility] [address] [place] [address] Dr. Lela Okeefe MCHC (RBC) [Mass/Vol] 33.5 g/dL Normal 29.9-35.2 [facility] Comment on above: Performed By: #### C BC #### [facility] [address] [place] [address] Dr. Lela Okeefe MCV (RBC) [Entitic vol] 88.7 fL Normal 81.0-99.0 [facility] Comment on above: Performed By: #### C BC #### [facility] [address] [place] [address] Dr. Lela Okeefe MONO # 0.5 103/ul Normal 0.3-0.8 [facility] Comment on above: Performed By: #### C BC #### [facility] [address] [place] [address] Dr. Lela Okeefe Monocytes/100 WBC (Bld) 6.9 % Normal 1.7-12.0 [facility] Comment on above: Performed By: #### C BC #### [facility] [address] [place] [address] Dr. Lela Okeefe NEUT # 4.4 103/ul Normal 1.4-6.5 [facility] Comment on above: Performed By: #### C BC #### [facility] [address] [place] [address] Dr. Lela Okeefe Neutrophils/100 WBC (Bld) 61.8 % Normal 43.0-75.0 [facility] Comment on above: Performed By: #### C BC #### [facility] [address] [place] [address] Dr. Lela Okeefe Platelet mean volume (Bld) [Entitic vol] 9.3 fL Critically low 9.5-13.5 [facility] Comment on above: Performed By: #### C BC #### [facility] [address] [place] [address] Dr. Lela Okeefe PLT 239 103/ul Normal 150-450 [facility] Comment on above: Performed By: #### C BC #### [facility] [address] [place] [address] Dr. Lela Okeefe RBC 4.85 106/ul Normal 4.20-5.40 [facility] Comment on above: Performed By: #### C BC #### [facility] [address] [place] [address] Dr. Lela Okeefe WBC 7.1 103/ul Normal 4.0-11.0 [facility] Comment on above: Performed By: #### C BC #### [facility] [address] [place] [address] Dr. Lela Okeefe LIPID PROFILEon 11-23-2021 CHOL-HDL RATIO NORM SEE BELOW Normal [facility] Comment on above: Result Comment: 3.3 - 4.4 LOW RISK 4.4 - 7.1 AVERAGE RISK 7.1 - 11.0 MODERATE RISK >11.0 HIGH RISK Performed By: #### C BC #### [facility] [address] [place] [address] Dr. Lela Okeefe Cholesterol [Mass/Vol] 177 mg/dL Normal <=200 Th [facility] Comment on above: Performed By: #### C BC #### [facility] [address] [place], [place] [address] Dr. Lela Okeefe Cholesterol in HDL [Mass/Vol] 38 mg/dL Critically low 40-60 [facility] Comment on above: Performed By: #### C BC #### [facility] [address] [place], [place] [address] Dr. Lela Okeefe Cholesterol in LDL [Mass/Vol] 121.6 mg/dL Normal [facility] Comment on above: Performed By: #### C BC #### [facility] [address] [address] [address] Lela Okeefe Cholesterol.total/Chol esterol in HDL [Mass ratio] 4.7 {ratio} Normal [facility] Comment on above: Performed By: #### C BC #### [facility] [address] [place] [address] Dr. Lela Okeefe HDL NORMAL > or = 60 mg/dl - LO W CARDIOVASCULAR RISK <40 mg/dl - HIGH CARDIOVASCULAR RISK Normal [facility] Comment on above: Performed By: #### C BC #### [facility] [address] [place] [address] Dr. Lela Okeefe LDL CALC NORMAL SEE BELOW Normal [facility] Comment on above: Result Comment: <100 mg/dl OPTIMAL 100 - 129 mg/dl NEAR OR ABOVE OPTIMAL 130 - 159 mg/dl BORDERLINE HIGH 160 - 189 mg/dl HIGH >190 mg/dl VERY HIGH Performed By: #### C BC #### [facility] [address] [address] [address] Lela Okeefe Triglyceride [Mass/Vol] 87 mg/dL Normal <=150 [facility] Comment on above: Performed By: #### C BC #### [facility] [address] [place] [address] Dr. Lela Okeefe VLDL CALC 17.4 mg/dL Normal [facility] Comment on above: Performed By: #### C BC #### [facility] [address] [place] [address] Dr. Lela Okeefe PROF CHEM 8 (BAS METB)on Anion gap [Moles/Vol] 9.2 mmol/L Normal [facility] Comment on above: Performed By: #### B MP, TSH, LIPID #### [facility] [address] [place] [address] Dr. Lela Okeefe Calcium [Mass/Vol] 8.9 mg/dL Normal 8.5-10.1 [facility] Comment on above: Performed By: #### B MP, TSH, LIPID #### [facility] [address] [place] [address] Dr. Lela Okeefe Chloride [Moles/Vol] 105 mmol/L Normal 98-107 [facility] Comment on above: Performed By: #### B MP, TSH, LIPID #### [facility] [address] [place] [address] Dr. Lela Okeefe CO2 [Moles/Vol] 28.8 mmol/L Normal 21.0-32.0 [facility] Comment on above: Performed By: #### B MP, TSH, LIPID #### [facility] [address] [place] [address] Dr. Lela Okeefe Creatinine [Mass/Vol] 0.77 mg/dL Normal 0.55-1.02 [facility] Comment on above: Performed By: #### B MP, TSH, LIPID #### [facility] [address] [place] [address] Dr. Lela Okeefe EGFR-AF CONGOLESE >60 Normal >=60 [facility] Comment on above: Performed By: #### B MP, TSH, LIPID #### [facility] [address] [place] [address] Dr. Lela Okeefe EGFR-NON AF CONGOLESE >60 Normal >=60 [facility] Comment on above: Performed By: #### B MP, TSH, LIPID #### [facility] [address] [place] [address] Dr. Lela Okeefe Glucose [Mass/Vol] 103 mg/dL Normal 74-106 [facility] Comment on above: Performed By: #### B MP, TSH, LIPID #### [facility] [address] [place] [address] Dr. Lela Okeefe Potassium [Moles/Vol] 4.0 mmol/L Normal 3.5-5.1 [facility] Comment on above: Performed By: #### B MP, TSH, LIPID #### [facility] [address] [address] [address] Lela Okeefe Sodium [Moles/Vol] 139 mmol/L Normal 136-145 [facility] Comment on above: Performed By: #### B MP, TSH, LIPID #### [facility] [address] [address] [address] Lela Okeefe Urea nitrogen [Mass/Vol] 10.0 mg/dL Normal 7.0-18.0 [facility] Comment on above: Performed By: #### B MP, TSH, LIPID #### [facility] [address] [address] [address] Lela Okeefe Urea nitrogen/Creatinine [Mass ratio] 13.0 mg/mg Normal [facility] Comment on above: Performed By: #### B MP, TSH, LIPID #### [facility] [address] [address] [address] Lela Okeefe TSHon 11-23-2021 TSH 1.092 uIU/mL Normal 0.358-3.74 0 [facility] Comment on above: Performed By: #### C BC #### [facility] [address] [place] [address] Dr. Lela Okeefe PROGRESSon 03-29-2019 PROGRESS HNO ID: [id number] Author: Jose Olea Service: ? Author Type: Physician Type: Progress Notes Filed: 03/29/2019 10:25 AM Note Text: Patient here for ultrasound. See ultrasound report for details. Jose Olea MD [facility] PROGRESSon 03-15-2019 PROGRESS HNO ID: [id number] Author: Dasha Ibanez Service: ? Author Type: Physician Type: Progress Notes Filed: 03/15/2019 9:46 AM Note Text: MFM Attending: The patient is considered to be at risk for growth abnormalities/cardiac rhythm abnormalities due to Sjogren's syndrome. Normal heart rate is noted today. There is no evidence of arrhythmia or hydrops. The EFW is normal at 51st percentile. The SUSIE is normal. See ultrasound report Dasha Ibanez MD [facility] PROGRESSon 03-01-2019 PROGRESS HNO ID: [id number] Author: Tobias Yang Service: ? Author Type: Physician Type: Progress Notes Filed: 03/01/2019 9:43 AM Note Text: Ultrasound reveals a rojas fetus in utero. No effusions or dysrhythmias are identified. ?The amniotic fluid is within normal limits. ? 25?week?0?day rojas intrauterine gestation ? Appropriate amniotic fluid volume?? No evidence of hydrops or cardiac arrhythmia? The patient was counseled as to the sonographic findings. ? ? Follow up ultrasound?every two weeks to evaluate for arrhythmia and hydrops until 30 weeks?secondary to SSA/SSB antibody. ?After 30 weeks, recommend weekly NST's? ? The patient presents for requested ultrasound. ?Full report available in the Imaging tab in [employer] ? Tobias Yang MD [facility] PROGRESSon 02-16-2019 PROGRESS HNO ID: [id number] Author: Tobias Yang Service: ? Author Type: Physician Type: Progress Notes Filed: 02/16/2019 11:17 AM Note Text: Ultrasound reveals a rojas fetus in utero. No effusions or dysrhythmias are identified. ?The amniotic fluid is within normal limits. ? 23?week?1?day rojas intrauterine gestation ? Appropriate amniotic fluid volume?? No evidence of hydrops or cardiac arrhythmia? The patient was counseled as to the sonographic findings. ? ? Follow up ultrasound?every two weeks to evaluate for arrhythmia and hydrops until 30 weeks secondary to SSA/SSB antibody. After 30 weeks, recommend weekly NST's? ? The patient presents for requested ultrasound. ?Full report available in the Imaging tab in [employer] ? Tobias Yang MD [facility] PROGRESS 01-31-2019 PROGRESS HNO ID: [id number] Author: Tobias Yang Service: ? Author Type: Physician Type: Progress Notes Filed: 01/31/2019 9:05 AM Note Text: Ultrasound reveals a rojas fetus in utero. No effusions or dysrhythmias are identified. ?The amniotic fluid is within normal limits. ? 20?week 6?day rojas intrauterine gestation ? Appropriate amniotic fluid volume?? No evidence of hydrops or cardiac arrhythmia? The patient was counseled as to the sonographic findings. ? ? Follow up ultrasound?every two weeks to evaluate for arrhythmia and hydrops until 30 weeks secondary to SSA/SSB antibody. After 30 weeks, recommend weekly NST's? ? The patient presents for requested ultrasound. ?Full report available in the Imaging tab in Epic ? Tobias Yang MD [facility] PROGRESSon 01-18-2019 PROGRESS HNO ID: [id number] Author: Tobias Yang Service: ? Author Type: Physician Type: Progress Notes Filed: 01/18/2019 10:32 AM Note Text: SSA and SSB antibodies are associated with and heart block. They are also associated with lupus syndrome which usually occurs to mothers with a diagnosis of lupus. The lupus syndrome includes photosensitive rash, thrombocytopenia, hepatitis, and hemolytic anemia, all of which are transient, and congenital complete heart block, which is not. The syndrome occurs exclusively in neonates of women with high-titer anti-Ro/SSA or anti-La/SSB antibodies, or both, many of whom are clinically well (a small number later develop SLE or Sjogren syndrome). With the exception of lupus syndrome, there are no congenital abnormalities associated with SLE. Congenital heart block is first diagnosable in utero by electrocardiography, ultrasound, or cardiac rate monitoring between 18 and 25 weeks' gestation (average, 23 weeks). Among autoimmune patients with anti-Ro antibody, the risk that a liveborn child will have lupus rash is 25%, and congenital complete heart block is less than 3%. However, the risks of recurrent congenital heart block and lupus/rash are 18% and 25%, respectively. No specific antibody pattern predicts lupus rash. Several dizygotic twins and at least one monozygotic twin pair have been discordant for lupus, suggesting contribution to illness. Administration of dexamethasone may be of some benefit in some small trials. Because of her positive SSA and SSB antibodies, I recommend evaluation with ultrasound to evaluate for hydrops every 2 weeks until delivery starting at 18 weeks if heart block is detected. In the intervals between the ultrasounds, I recommend intraoffice handheld doppler assessents weekly and then nonstress tests starting at 30 weeks to look for any evidence of bradycardia or other arrhythmia. If bradycardias detected, immediate ultrasound should be performed to evaluate for hydrops. If bradycardia is identified without evidence of hydrops, the recommendation is for surveillance until delivery. The mode of delivery would be controversial if the fetus is in continued heart block because abnormalities in the heart rate would be difficult to detect the baseline is already bradycardic. Therefore, it would not be unreasonable to undergo section if the fetus is in continued heart block. A hydrops develops late in , the recommendation would be for delivery. Ultrasound report Ultrasound reveals a rojas fetus in utero, with measurements appropriate to the stated gestational age. The amniotic fluid volume is within normal limits. No malformations, effusions or dysrhythmias are identified. 19 week 0 day rojas intrauterine gestation No abnormalities detected in the areas visualized The patient was counseled as to the sonographic findings. There is potential for non-visualized malformations when using ultrasound. Follow up ultrasound to evaluate for heart block every 2 weeks until 30 weeks. In the intervals between the ultrasounds, consider intraoffice handheld doppler assessents and then nonstress tests starting at 30 weeks to look for any evidence of bradycardia or other arrhythmia. The patient presents for requested ultrasound. Full report available in the Imaging tab in Epic Tobias Yang MD [facility] Vital Signs Date Time Vital Sign Value Performing Clinician Facility 03-20-2023 08:30-0500 Body height 170.18 cm David Newberry Other [facility] Other 03-20-2023 08:30-0500 Body mass index (BMI) [Ratio] 43.47 kg/m2 David Newberry Other [facility] Other 03-20-2023 08:30-0500 Body weight 125.92 kg David Newberry Other [facility] Other 03-20-2023 08:30-0500 Diastolic blood pressure 74 mm[Hg] David Newberry Other [facility] [employer] Other 03-20-2023 08:30-0500 Systolic blood pressure 109 mm[Hg] David Newberry Other [facility] [employer] Other 01-23-2023 08:56-0500 Blood Pressure Location Clark CLEMENS [facility] 01-23-2023 08:56-0500 Diastolic blood pressure 82 mm[Hg] Clark CLEMENS [facility] 01-23-2023 08:56-0500 Heart rate 73 /min Clark CLEMENS [facility] 01-23-2023 08:56-0500 Respiratory rate 16 /min Clark CLEMENS [facility] 01-23-2023 08:56-0500 Systolic blood pressure 124 mm[Hg] Clark CLEMENS [facility] 12-29-2022 12:42-0400 Diastolic blood pressure 74 mm[Hg] MD David Newberry Work Phone: [facility] 12-29-2022 12:42-0400 Heart rate 95 /min MD David Newberry Work Phone: [facility] 12-29-2022 12:42-0400 Respiratory rate 18 /min MD David Newberry Work Phone: [facility] 12-29-2022 12:42-0400 SaO2% (BldA) [Mass fraction] 97 % MD David Newberry Work Phone: [facility] 12-29-2022 12:42-0400 Systolic blood pressure 105 mm[Hg] MD David Newberry Work Phone: [facility] 12-29-2022 09:45-0400 Body temperature 98.6 [degF] MD David Newberry Work Phone: [facility] 12-29-2022 09:07-0400 Inhaled oxygen flow rate 8 L/min MD David Newberry Work Phone: [facility] 12-29-2022 07:18-0400 Body height 170.18 cm MD David Newberry Work Phone: [facility] 12-29-2022 07:18-0400 Body mass index (BMI) [Ratio] 42.3 kg/m2 MD David Newberry Work Phone: [facility] 12-29-2022 07:18-0400 Body weight 122.46 kg MD David Newberry Work Phone: [facility] 05-19-2022 10:18-0500 Blood Pressure Location Clark CLEMENS [facility] 05-19-2022 10:18-0500 Diastolic blood pressure 71 mm[Hg] Clark CLEMENS [facility] 05-19-2022 10:18-0500 Heart rate 51 /min Clark CLEMENS [facility] 05-19-2022 10:18-0500 Respiratory rate 16 /min Clarkjosse CLEMENS [facility] 05-19-2022 10:18-0500 Systolic blood pressure 113 mm[Hg] Clark CLEMENS [facility] 04-10-2022 15:00-0500 Body height 170.18 cm David Newberry Other [facility] Other 01-26-2023 15:00-0500 Body mass index (BMI) [Ratio] 36.33 kg/m2 David Newberry Other [facility] Other 04-10-2022 15:00-0500 Body weight 105.24 kg David Newberry Other [facility] Other 04-10-2022 15:00-0500 Diastolic blood pressure 74 mm[Hg] David Newberry Other [facility] Other 04-10-2022 15:00-0500 SaO2% (BldA) [Mass fraction] 97 % David Newberry Other [facility] Other 04-10-2022 15:00-0500 Systolic blood pressure 122 mm[Hg] David Newberry Other [facility] Other Encounters Encounter Date Encounter Type Care Provider Facility Start: 01-29-2024 ambulatory Clark Staplesi ty:[facility] Start: 03-20-2023 End: 03-20-2023 ambulatory David Newberry Other [facility] Other Start: 03-20-2023 Office outpatient vi sit 15 minutes David Newberry [facility] Start: 03-03-2023 End: 03-03-2023 ambulatory OG [facility] Start: 02-27-2023 End: 03-02-2023 ambulatory DAVID NEWBERRY [facility] Start: 02-27-2023 End: 03-01-2023 Subsequent hospital visit by physician Mth Stress Lab [facility]iology Comment on above: Postural dizziness w ith near syncope Start: 02-10-2023 End: 02-10-2023 ambulatory ADSHA GARCIA Not Available Start: 01-23-2023 End: 01-24-2023 ambulatory Clark CLEMENS Facility:[facility] Start: 01-23-2023 End: 01-23-2023 Patient encounter procedure Clark CLEMENS [facility] Start: 01-20-2023 End: 01-20-2023 ambulatory Enrique Lucas Facility:[facility] Start: 01-20-2023 End: 01-20-2023 ambulatory MD David Newberry Work Phone: [facility] Work Phone: Start: 01-20-2023 End: 01-20-2023 Patient encounter procedure MD David Newberry Work Phone: [facility] [address] Work Phone: Start: 01-09-2023 End: 01-09-2023 ambulatory [facility] Start: 12-29-2022 End: 12-29-2022 ambulatory Dashamarcial Garcia Facility:[facility] Start: 12-29-2022 End: 12-29-2022 Admission to same day surgery center MD David Newberry Work Phone: [facility] [address] Start: 12-15-2022 End: 12-15-2022 ambulatory Dasha Garcia Facility:[facility] Start: 12-15-2022 End: 12-15-2022 ambulatory MD David Newberry Work Phone: [facility] Work Phone: Start: 12-15-2022 End: 12-15-2022 Patient encounter procedure MD David Newberry Work Phone: [facility] Work Phone: Start: 10-10-2022 End: 10-10-2022 ambulatory David Newberry Other [facility] Other Start: 10-10-2022 Telephone encounter David Newberry [facility] Start: 09-10-2022 End: 09-10-2022 ambulatory [facility] Start: 08-29-2022 End: 08-29-2022 ambulatory NAHID GRIFFIN [facility] Start: 08-21-2022 End: 08-21-2022 ambulatory [facility] Start: 07-17-2022 End: 07-18-[address] DAVID NEWBERRY Facility:[facility] Start: 07-17-2022 Encounter for other preprocedural examination DR CLARK CLEMENS . [facility] Start: 07-17-2022 Encounter for preprocedural cardiovascular examination DR CLARK CLEMENS . [facility] Start: 07-17-2022 Encounter for preprocedural laboratory examination DR CLARK CLEMENS . [facility] Start: 07-15-2022 End: 07-15-2022 ambulatory [facility] Start: 07-11-2022 End: 07-12-[address] DAVID NEWBERRY Facility:[facility] Start: 07-11-2022 End: 07-12-2022 Encounter for preprocedural laboratory examination DR DAVID NEWBERRY Facility: Start: 06-02-2022 End: 06-03-[address] DAVID NEWBERRY Facility: Start: 05-19-2022 End: 05-20-[address] DAVID NEWBERRY Facility: Start: 05-19-2022 End: 05-20-2022 ambulatory Clark CLEMENS Facility:[facility] Start: 05-19-2022 End: 05-19-2022 Patient encounter procedure Clark CLEMENS [facility] Start: 05-16-2022 End: 05-16-2022 ambulatory David Newberry Other [facility] Other Start: 05-16-2022 Telephone encounter David Newberry [facility] Start: 05-09-2022 End: 05-09-2022 ambulatory David Newberry Other [facility] Other Start: 02-24-2023 Nursing evaluation o f patient and report David Newberry [facility] Start: 04-29-2022 End: 04-29-2022 ambulatory OG BARONE [facility] Start: 04-25-2022 End: 04-25-2022 ambulatory David Newberry Other [facility] Other Start: 04-25-2022 Telephone encounter David Newberry [facility] Start: 04-23-[address] DAVID NEWBERRY Facil ity:[facility] Start: 04-12-2022 End: 04-13-[address] DAVID NEWBERRY Facility:[facility] Start: 04-11-2022 End: 04-11-[address] DAVID NEWBERRY [facility] [employer] Other Start: 04-11-2022 Telephone encounter David Newberry [facility] Start: 04-10-2022 Office outpatient vi sit 15 minutes David Newberry [facility] Start: 04-10-2022 End: 04-10-[address] AMBIKA SALDAÑA . [facility] Other Start: 03-28-2022 End: 03-28-2022 ambulatory [facility] Start: 01-09-2022 Adult health examination Gabbi Newberry Other [facility] [employer] Other Start: 12-24-2021 End: 12-25-2021 ambulatory ROYER PEARCE Facility:[facility] Start: 11-29-2021 Encounter for genera l adult medical examination without abnormal findings DR DAVID NEWBERRY [facility] Start: 11-23-2021 End: 11-24-[address] DAVID NEWBERRY Facility:[facility] Start: 11-23-2021 End: 11-24-2021 Encounter for general adult medical examination without abnormal findings DR DAVID NEWBERRY Facility:[facility] Procedures Date Procedure Procedure Detail Performing Clinician Start: 02-27-2023 Cardiovascular funct ion eval w/tilt table w/mntr Elana Ramirez QUESTIONED DOCUMENTS EXAMINER - MORTGAGE LOAN SPECIALIST Work Phone: Start: 12-29-2022 Total hysterectomy v ia vaginal approach MD David Newberry Work Phone: Start: 12-15-2022 Antibody screen Enrique Lucas Comment on above: Order Comment: Date of Surgery: [id number] Result Comment: PERF ORMED BY: [facility] [place] [address] PATHOLOGIST CELL TESTER OLIMPIA MORA M.D. Start: 07-17-2022 Transurethral cystoscopy Clark CLEMENS Start: 03-16-2012 Tonsillectomy and adenoidectomy Clark CLEMENS H/O: hysterectomy S/P laparoscop ic hysterectomy MD David Newberry Work Phone: Laparoscopic-assiste d vaginal hysterectomy Clark CLEMENS Plan of Treatment Date Care Activity Detail Author Start: 06-06-2029 DTaP/Tdap/Td vaccine (2 - Td or Tdap) DTaP/Tdap/Td vaccine (2 - Td or Tdap) [facility] [employer] Start: 01-20-2023 Bacteria identified in Urine by Culture Urine Culture [facility] Start: 12-29-2022 [facility] Start: 12-29-2022 Hospital admission [facility] Start: 11-14-2022 COVID-19 Vaccine ( season) COVID-19 Vaccine () [facility] Start: 10-14-2022 Influenza vaccination Flu vaccine (# 1) [facility] Start: 2020 Screening for malign ant neoplasm of cervix [employer] Start: 12-08-2011 Screening for malign ant neoplasm of cervix Pap smear [facility] Start: 2008 Hepatitis C screening Hepatitis C sc reen [facility] [employer] Start: 2005 HIV screening HIV screen [facility] [employer] Start: 2002 Depression Screen Depression Screen [facility] Start: 12-08-1991 Varicella vaccine (1 of 2 - 2-dose childhood series) Varicella vaccine (1 of 2 - 2-dose childhood series) [facility] [employer] Start: 1990 Hepatitis B vaccine (1 of 3 - 3-dose series) Hepatitis B vaccine (1 of 3 - 3-dose series) [facility] Complement C3 [Mass/volume] in Serum or Plasma [facility] Complement C4 [Mass/volume] in Serum or Plasma [facility] Patient referral [facility] Work Phone: End: 02-27-2023 Tilt table Tilt table [facility] Routine Postural dizziness with near syncope 1 Occurrences starting 02/27/2023 until 02/27/2023 [employer] Work Phone: Comment on above: 1 Occurrences starti ng 02/27/2023 until 02/27/2023 Immunizations Immunization Date Immunization Notes Care Provider Silvia marinelli 04-25-2020 SARS-CoV-2 (COVID-19 ) mRNA-1273 vaccine Clark CLEMENS [facility] 03-28-2020 SARS-CoV-2 (COVID-19 ) mRNA-1273 vaccine Clark CLEMENS [facility] 06-07-2019 tetanus toxoid, redu ashly diphtheria toxoid, and acellular pertussis vaccine, adsorbed Clark CLEMENS [facility] 07-01-2018 hepatitis B vaccine, adult dosage Clark CLEMENS [facility] 05-21-2018 hepatitis B vaccine, adult dosage Clark CLEMENS [facility] Payers Date Payer Category Payer Unknown [id number] 2.16.84 [id number] 1990 Unknown [id number] 2.16.84 0.1.341512.3.579.2.593 1990 Unknown [id number] 2.16.84 0.1.819058.3.579.2.593 1990 Unknown [id number] 2.16.84 0.1.046519.3.579.2.593 1990 Unknown [id number] 2.16.84 0.1.733464.3.579.2.593 1990 Unknown [id number] 2.16.84 0.1.694169.3.579.2.593 1990 Unknown [id number] 2.16.84 0.1.221989.3.579.2.593 1990 Unknown [id number] 2.16.84 0.1.261918.3.579.2.593 1990 Unknown [id number] 2.16.84 0.1.178891.3.579.2.593 1990 Unknown [id number] 2.16.84 0.1.572000.3.579.2.593 1990 Unknown [id number] 2.16.84 0.1.201795.3.579.2.593 1990 Unknown [id number] 2.16.84 0.1.620106.3.579.2.593 1990 Unknown [id number] 2.16.8 40.1.640213.3.579.2.727 1990 Unknown [id number] 2.16.8 40.1.473045.3.579.2.727 1990 Unknown [id number] 2.16.8 40.1.816620.3.579.2.727 1990 Unknown [id number] 2.16.8 40.1.674143.3.579.2.727 1990 Unknown [id number] 2.16.840 .1.884293.3.579.2.1259 1990 Unknown [id number] 2.16.8 40.1.789715.3.579.2.173 1959 Private Health Insurance [id number] 1959 Self-pay Private Health Insurance [id number] [id number] Unknown [id number] 2.16.8 40.1.543495.3.579.2.531 Unknown [id number] 2.16.8 40.1.535629.3.579.2.531 Unknown [id number] 2.16.8 40.1.476026.3.579.2.531 Social History Date Type Detail Facility Unknown if ever smoked [facility] Other Sex Assigned At [facility] Start: 05-19-2022 End: 12-29-2022 Tobacco smoking status Never smoked tobacco (finding) [facility] Tobacco smoking status Never [facility] Start: 1990 Sex Assigned At Female F [facility] Tobacco smoking status NHIS Tobacco smoking consumption unknown [facility] [employer] Start: 1990 Sex Assigned At Not on file [facility] [employer] Goals Date Patient Goal Desired Activity /State Functional Status Date Assessment Result Facility 01-23-2023 Functional Status N/A [facility] 05-19-2022 Functional Status N/A [facility] Clinical Notes 03-28-2022 to 03-20-2023 Note Date & Type Note Facility 03-20-2023 Evaluation note Encounter Date Diagnosis Assessment Notes Mar, Paroxysmal SVT (supraventricul ar tachycardia) (ICD-10 - I47.10) Discussed f/u w cardiology Mar, Daytime somnolence (ICD-10 - R40.0) HST order faxed to [facility] sleep lab. Mar, Morbid (severe) obesity due to excess calories (ICD-10 - E66.01) as above Mar, Body mass index [BMI] 40.0-44.9, adult (ICD-10 - Z68.41) as above Mar, Fatigue, unspecified type (ICD-10 - R53.83) as above [facility] Other [id number] NotePatient here for follow up tilt table test per Elana Ramirez CNP. Review of Systems Cardiovascular: Positive for palpitations. Neurological: Positive for dizziness, headaches and light-headedness. All other systems reviewed and are negative.[facility] 03-03-2023 NoteUT Electrophysiology Consult Note Reason for visit: Palpitations, s/p loop implant 08/21/2022 03/03/23 Patient has felt better since starting metoprolol. she feels her episodes are much more limited. I reviewed her of loop data and it shows episodes of long RP tachycardia in the rate of 110 bpm that increases to 140 bpm with sudden termination and then restarting the tachycardia again. she was previously diagnosed with sleep apnea and underwent ENT surgery following which she said she is felt much better. no recent sleep apnea studies. She also had a tilt table study done at [facility]. this that was a negative study based on tilt. upon administration of 0.3 mcg of nitroglycerin after 20 minutes of tilt, she developed hypotension with the resumption of the symptoms of lightheadedness. clearly this was brought about by pharmacological agent thus making it false positive study. 01/09/23: she has been feeling well but continues to feel palpitations, lightness, dizziness. She does have postural dizziness which is sometimes associated with tachycardia and lightheadedness. she has never passed out. she was at a concert on the day of the rhythm presented below 10/25/2022 where she drank alcohol and had a frozen karon around the time of arrhythmia. we discussed continuing monitoring and we can proceed with tilt table test to rule out POTS She has increased fluid intake/salt intake and is using electrolyte packets Loop data review: I reviewed her loop and she is has multiple episodes of tachycardia. all episodes are still under 150 bpm borderline tachycardic strips do appear like an SVT as there is a break in the rhythm and change in QRS delfection. There are some strips that do appear as ITS 09/10/22: she is here for follow-up regarding her loop device. She is here for loop data review. I did review her data with no concerns at this time she continues to take metoprolol tartrate 75 mg twice daily 07/15/22 Patient here for 3 mo follow up palpitations. She had labs and ECG last week for pre-surgery testing. She is having kidney stone removed on . She says palpitations have improved but there were episodes her HR went to 160bpm at rest. Denies chest pain and SOB. Review of Systems Cardiovascular: Positive for palpitations. All other systems reviewed and are negative. Prior HPI: Morgan Kirkland is a 32 y.o. year old with past medical history including anxiety, fibromyalgia, palpitations, and Sjogren's disease who is referred to EP clinic for palpitation and findings of event monitor. patient started on metoprolol at some point for palpitation which improved partially. Patient had event monitor in December reviewed by Juan Ramirez, [facility] showed sinus tachycardia, atrial arrhythmia. Patient reported increasing pain episode frequency of palpitation heart rate up to 150 associated with chest pressure for few minutes. Otherwise no chest pain or shortness of breath no PND no orthopnea no syncope. She is not on any medication for Sjogren's disease or fibromyalgia. She had complete work-up in the past including echocardiography, routine stress test which were unremarkable. she reported that she had echo done in 12/2021. Denied caffeine intake. Event monitor was reviews by me. There are episodes of long RP tachycardia withrate oif 124 bpm at 6-6:30am. No VT seen or SVT seen. PMH: Past Medical History: Diagnosis Date Palpitations PSH: Past Surgical History: Procedure Laterality Date HYSTERECTOMY LITHOTRIPSY TONSILLECTOMY SH: Social Determinants of Health Tobacco Use: Low Risk (01/09/2023) Patient History Smoking Tobacco Use: Never Smokeless Tobacco Use: Never Passive Exposure: Not on file Alcohol Use: Not on file Financial Resource Strain: Not on file Food Insecurity: Not on file Transportation Needs: Not on file Physical Activity: Not on file Stress: Not on file Social Connections: Not on file Intimate Partner Violence: Not on file Depression: Not on file Housing Stability: Not on file Allergies: Allergies Allergen Reactions Penicillin Rash Povidone-Iodine Rash Weight: 124kg Visit Vitals BP 112/84 (BP Location: Left arm, Patient Position: Sitting) Pulse 80 Ht 1.715 m (5' 7.5 ) Wt 124 kg (274 lb) SpO2 97% BMI 42.28 kg/m??? Smoking Status Never BSA 2.43 m??? Meds: Current Outpatient Medications on File Prior to Visit Medication Sig Dispense Refill metoprolol tartrate 75 mg tablet Take 1 tablet (75 mg) by mouth in the morning and at bedtime. 180 tablet 3 cetirizine (ZyrTEC) 10 mg tablet TAKE 1 TABLET BY MOUTH EVERY DAY FOR 14 DAYS fluticasone (Flonase) 50 mcg/actuation nasal spray USE 1 SPRAY IN EACH NOSTRIL TWICE A DAY FOR 14 DAYS metoprolol tartrate (Lopressor) 25 mg tablet TAKE 3 TABLETS BY MOUTH IN THE MORNING AND AT BEDTIME (Patient not taking: Reported on 01/09/2023) 180 tablet 3 No curre (more content not included)...[facility] 02-27-2023 History of Present illness Narrative* May Crandall RN - 02/27/2023 2:30 PM EST Instructed on objectives and procedure of a tilt study [facility] Discharge instructions Patient Education 01/23/2023 09:39:05 Urinary Tract Infection, Adult, Oqet-[id number] Urinary Tract Infection, Adult A urinary tract infection (UTI) is an infection of any part of the urinary tract. The urinary tractincludes: The kidneys. The ureters. The bladder. The urethra. These organs make, store, and get rid of pee (urine) in the body. What are the causes? This infection is caused by germs (bacteria) in your genital area. These germs grow and cause swelling (inflammation) of your urinary tract. What increases the risk? The following factors may make you more likely to develop this condition: Using a small, thin tube (catheter) to drain pee. Not being able to control when you pee or poop (incontinence). Being female. If you are female, these things can increase the risk: ?Using these methods to prevent : ?A medicine that kills sperm (spermicide). ?A device that blocks sperm (diaphragm). ?Having low levels of a female hormone (estrogen). ?Being . You are more likely to develop this condition if: You have genes that add to your risk. You are sexually active. You take antibiotic medicines. You have trouble peeing because of: ?A prostate that is bigger than normal, if you are male. ?A blockage in the part of your body that drains pee from the bladder. ?A kidney stone. ?A nerve condition that affects your bladder. ?Not getting enough to drink. ?Not peeing often enough. You have other conditions, such as: ?Diabetes. ?A weak disease-fighting system (immune system). ?Sickle cell disease. ?Gout. ?Injury of the spine. What are the signs or symptoms? Symptoms of this condition include: Needing to pee right away. Peeing small amounts often. Pain or burning when peeing. Blood in the pee. Pee that smells bad or not like normal. Trouble peeing. Pee that is cloudy. Fluid coming from the vagina, if you are female. Pain in the belly or lower back. Other symptoms include: Vomiting. Not feeling hungry. Feeling mixed up (confused). This may be the first symptom in older adults. Being tired and grouchy (irritable). A fever. Watery poop (diarrhea). How is this treated? Taking antibiotic medicine. Taking other medicines. Drinking enough water. In some cases, you may need to see a specialist. Follow these instructions at home: Medicines Take [id number] and prescription medicines only as told by your doctor. If you were prescribed an antibiotic medicine, take it as told by your doctor. Do not stop taking it even if you start to feel better. General instructions Make sure you: ?Pee until your bladder is empty. ?Do not hold pee for a long time. ?Empty your bladder after sex. ?Wipe from front to back after peeing or pooping if you are a female. Use each tissue one time whenyou wipe. Drink enough fluid to keep your pee pale yellow. Keep all follow-up visits. Contact a doctor if: You do not get better after 1 2 days. Your symptoms go away and then come back. Get help right away if: You have very bad back pain. You have very bad pain in your lower belly. You have a fever. You have chills. You feeling like you will vomit or you vomit. Summary A urinary tract infection (UTI) is an infection of any part of the urinary tract. This condition is caused by germs in your genital area. There are many risk factors for a UTI. Treatment includes antibiotic medicines. Drink enough fluid to keep your pee pale yellow. This information is not intended to replace advice given to you by your health care provider. Make sure you discuss any questions you have with your health care provider. Document Revised: 10/12/2020 Document Reviewed: 10/12/2020 [id number] Patient Education 2022 [employer]. Follow Up Care 07/18/2022 12:23:23 With:MIKY SAMPSON, Clark Roldan, URL Address: [facility] [address], [place] [address]- [phone] When: Unknown Comments:1 yr w/ REY[facility] 10-27-2023 NotePatient here for 4 mo follow up s/p loop recorder insertion. Says palpitations have been much less. Denies chest pain and SOB. Still gets very dizzy with positional changes. HR sometimes goes up to the 140's-150's when it's almost time for next dose of metoprolol. Review of Systems Cardiovascular: Positive for palpitations. Neurological: Positive for dizziness, headaches and light-headedness. All other systems reviewed and are negative.[facility] 01-09-2023 NoteUT Electrophysiology Consult Note Reason for visit: Palpitations, s/p loop implant 08/21/2022 01/09/23: she has been feeling well but continues to feel palpitations, lightness, dizziness. She does have postural dizziness which is sometimes associated with tachycardia and lightheadedness. she has never passed out. she was at a concert on the day of the rhythm presented below 10/25/2022 where she drank alcohol and had a frozen karon around the time of arrhythmia. we discussed continuing monitoring and we can proceed with tilt table test to rule out POTS She has increased fluid intake/salt intake and is using electrolyte packets Loop data review: I reviewed her loop and she is has multiple episodes of tachycardia. all episodes are still under 150 bpm borderline tachycardic strips do appear like an SVT as there is a break in the rhythm and change in QRS delfection. There are some strips that do appear as ITS 09/10/22: she is here for follow-up regarding her loop device. She is here for loop data review. I did review her data with no concerns at this time she continues to take metoprolol tartrate 75 mg twice daily 07/15/22 Patient here for 3 mo follow up palpitations. She had labs and ECG last week for pre-surgery testing. She is having kidney stone removed on . She says palpitations have improved but there were episodes her HR went to 160bpm at rest. Denies chest pain and SOB. Review of Systems Cardiovascular: Positive for palpitations. All other systems reviewed and are negative. Prior HPI: Morgan Kirkland is a 32 y.o. year old with past medical history including anxiety, fibromyalgia, palpitations, and Sjogren's disease who is referred to EP clinic for palpitation and findings of event monitor. patient started on metoprolol at some point for palpitation which improved partially. Patient had event monitor in December reviewed by Juan Ramirez, WATER RESOURCE SPECIALIST showed sinus tachycardia, atrial arrhythmia. Patient reported increasing pain episode frequency of palpitation heart rate up to 150 associated with chest pressure for few minutes. Otherwise no chest pain or shortness of breath no PND no orthopnea no syncope. She is not on any medication for Sjogren's disease or fibromyalgia. She had complete work-up in the past including echocardiography, routine stress test which were unremarkable. she reported that she had echo done in 12/2021. Denied caffeine intake. Event monitor was reviews by me. There are episodes of long RP tachycardia withrate oif 124 bpm at 6-6:30am. No VT seen or SVT seen. PMH: Past Medical History: Diagnosis Date Palpitations PSH: Past Surgical History: Procedure Laterality Date HYSTERECTOMY LITHOTRIPSY TONSILLECTOMY SH: Social Determinants of Health Tobacco Use: Low Risk (01/09/2023) Patient History Smoking Tobacco Use: Never Smokeless Tobacco Use: Never Passive Exposure: Not on file Alcohol Use: Not on file Financial Resource Strain: Not on file Food Insecurity: Not on file Transportation Needs: Not on file Physical Activity: Not on file Stress: Not on file Social Connections: Not on file Intimate Partner Violence: Not on file Depression: Not on file Housing Stability: Not on file Allergies: Allergies Allergen Reactions Penicillin Rash Weight: 123kg Visit Vitals BP 112/68 (BP Location: Right arm, Patient Position: Sitting) Pulse 73 Ht 1.715 m (5' 7.5 ) Wt 123 kg (272 lb) SpO2 97% BMI 41.97 kg/m??? Smoking Status Never BSA 2.42 m??? Meds: Current Outpatient Medications on File Prior to Visit Medication Sig Dispense Refill metoprolol tartrate 75 mg tablet Take 1 tablet (75 mg) by mouth in the morning and at bedtime. 180 tablet 3 cetirizine (ZyrTEC) 10 mg tablet TAKE 1 TABLET BY MOUTH EVERY DAY FOR 14 DAYS fluticasone (Flonase) 50 mcg/actuation nasal spray USE 1 SPRAY IN EACH NOSTRIL TWICE A DAY FOR 14 DAYS metoprolol tartrate (Lopressor) 25 mg tablet TAKE 3 TABLETS BY MOUTH IN THE MORNING AND AT BEDTIME (Patient not taking: Reported on 01/09/2023) 180 tablet 3 No current facility-administered medications on file prior to visit. Review of Systems Constitutional: Positive for malaise/fatigue. Cardiovascular: Positive for irregular heartbeat, leg swelling, near-syncope and palpitations. Negative for chest pain, dyspnea on exertion, orthopnea and syncope. Neurological: Positive for dizziness and light-headedness. All other systems reviewed and are negative. Physical Exam: Constitutional General Appearance: well-nourished, well-developed, appears stated age Level of Distress: comfortable Psychiatric Mental Status: alert, normal affect Orientation: oriented to time, place, and person Insight: good judgement Eyes Lids and Conjunctivae: non-injected, no xanthelasma ENMT Ears: no lesions on external ear Nose: no lesions on external nose Oropharynx: no cyanosis, no pa (more content not included)...[facility]10-01-2023 History general Narrative - Reported* Type Description Date Medical History tachycardia Medical History anxiety Medical History sjogren syndrome Surgical History tonsillectomy and adenoidectomy Surgical History Hysterectomy 12/2022 Surgical History Loop monitor 08/2022 [employer] Other 06-28-2023 NoteReview of Systems Cardiovascular: Positive for palpitations. Neurological: Positive for dizziness, headaches and light-headedness.[facility]06-28-2023 NoteUT Electrophysiology Consult Note Reason for visit: Palpitations, s/p loop implant 08/21/2022 09/10/22: she is here for follow-up regarding her loop device. She is here for loop data review. I did review her data with no concerns at this time she continues to take metoprolol tartrate 75 mg twice daily 07/15/22 Patient here for 3 mo follow up palpitations. She had labs and ECG last week for pre-surgery testing. She is having kidney stone removed on . She says palpitations have improved but there were episodes her HR went to 160bpm at rest. Denies chest pain and SOB. Review of Systems Cardiovascular: Positive for palpitations. All other systems reviewed and are negative. Prior HPI: Morgan Kirkland is a 31 y.o. year old with past medical history including anxiety, fibromyalgia, palpitations, and Sjogren's disease who is referred to EP clinic for palpitation and findings of event monitor. patient started on metoprolol at some point for palpitation which improved partially. Patient had event monitor in December reviewed by Juan Ramirez, WATER RESOURCE SPECIALIST showed sinus tachycardia, atrial arrhythmia. Patient reported increasing pain episode frequency of palpitation heart rate up to 150 associated with chest pressure for few minutes. Otherwise no chest pain or shortness of breath no PND no orthopnea no syncope. She is not on any medication for Sjogren's disease or fibromyalgia. She had complete work-up in the past including echocardiography, routine stress test which were unremarkable. she reported that she had echo done in 12/2021. Denied caffeine intake. Event monitor was reviews by me. There are episodes of long RP tachycardia withrate oif 124 bpm at 6-6:30am. No VT seen or SVT seen. PMH: Past Medical History: Diagnosis Date Palpitations PSH: Past Surgical History: Procedure Laterality Date TONSILLECTOMY SH: Social Determinants of Health Tobacco Use: Low Risk (08/21/2022) Patient History Smoking Tobacco Use: Never Smokeless Tobacco Use: Never Passive Exposure: Not on file Alcohol Use: Not on file Financial Resource Strain: Not on file Food Insecurity: Not on file Transportation Needs: Not on file Physical Activity: Not on file Stress: Not on file Social Connections: Not on file Intimate Partner Violence: Not on file Depression: Not on file Housing Stability: Not on file Allergies: Allergies Allergen Reactions Penicillin Rash Weight: 116kg Visit Vitals Pulse 75 Ht 1.715 m (5' 7.5 ) Wt 116 kg (256 lb) SpO2 97% BMI 39.50 kg/m??? Smoking Status Never BSA 2.35 m??? Meds: Current Outpatient Medications on File Prior to Visit Medication Sig Dispense Refill cetirizine (ZyrTEC) 10 mg tablet TAKE 1 TABLET BY MOUTH EVERY DAY FOR 14 DAYS fluticasone (Flonase) 50 mcg/actuation nasal spray USE 1 SPRAY IN EACH NOSTRIL TWICE A DAY FOR 14 DAYS metoprolol tartrate (Lopressor) 25 mg tablet TAKE 3 TABLETS BY MOUTH IN THE MORNING AND AT BEDTIME (Patient taking differently: Take 75 mg by mouth in the morning and at bedtime.) 180 tablet 3 No current facility-administered medications on file prior to visit. ROS: Cardio Basic Cardiovascular Symptoms: no lightheadedness, no leg edema, no syncope, no orthopnea, no PND, no claudication, Constitutional Constitutional: no fever, no night sweats, no significant weight gain, no significant weight loss, no exercise intolerance Eyes Eyes: no dry eyes, no irritation, no vision change ENMT Ears: no difficulty hearing, no ear pain Nose: no frequent nosebleeds, Mouth/Throat: no sore throat, no bleeding gums, no snoring, no dry mouth, no mouth ulcers, no oral abnormalities, no teeth problems Respiratory Respiratory: no cough, no wheezing, no coughing up blood, no sleep apnea Musculoskeletal Musculoskeletal: no muscle aches, no muscle weakness, joint pain+, no back pain, no swelling in the extremities Integumentary Skin no rash, no ulcer, no varicosities, no discoloration, no pruritus Neurologic Neurologic: no loss of consciousness, no weakness, no numbness, no seizures, no dizziness, no headaches Psychiatric Psych: no depression, feeling safe in relationship, no alcohol abuse, Hematologic/Lymphatic Hematologic/Lymphatic no swollen glands, no bruising Physical Exam: Constitutional General Appearance: well-nourished, well-developed, appears stated age Level of Distress: comfortable Psychiatric Mental Status: alert, normal affect Orientation: oriented to time, place, and person Insight: good judgement Eyes Lids and Conjunctivae: non-injected, no xanthelasma ENMT Ears: no lesions on external ear Nose: no lesions on external nose Oropharynx: no cyanosis, no pallor Neck Neck: supple, trachea midline Carotid Arteries: bilateral normal upstroke, no bruits Jugular Veins: normal jugular venous pressure Thyroid: not enlarged Lungs Respiratory Effort: unlabored (more content not included)...[facility]06-16-2023 NotePatient seen for wound check s/p loop device placement on 08/21/2022. Wound is clean, dry, intact, and well approximated. Discussed wound care including avoiding, rubbing, lotions, direct shower head pressure, caution with seat belt and bra straps, as well as avoiding other irritants. We will schedule appointment for evaluation of ongoing lightheadedness and dizziness.[facility]06-08-2023 NoteLOOP IMPLANT PROCEDURE NOTE DATE OF PROCEDURE: 08/21/22 PERFORMING PHYSICIAN: Dr. Og Barone MACHINE STRAW HAT PRESSER: JESS INDICATIONS FOR PROCEDURE: 1. SVT/AF surveillance CONSENT: Patient LOCATION: EP lab PROCEDURAL SEDATION: None FLUOROSCOPY TIME: 0min PREPARATION: Preoperative antibiotics was administered. EBL:3cc SPECIMEN REMOVED: None PROCEDURES PERFORMED: 1. LOOP implant PROCEDURE NOTE: Patient was brought to the EP lab in the post absorptive state. A procedural pause was performed verifying the patient, the procedure. Sterile prep and drape were performed over the left precordium and anesthesia with 1% lidocaine was followed by a small incision was made in the 3rd intercostal space near the sternum on the left using the [employer] tool. The loop recorder was then injected subcutaneously and noted to have good sensing parameters. Technical details of the device as noted below. The skin was then closed with 3-0 absorbable monofilament suture and glue applied to hold the edges together. Tegaderm was applied to cover the wound. The patient appeared to tolerate the procedure well and was returned to the room in stable condition. No complications were immediately observed. Sensin.15mV. IMPRESSION: Successful placement of LOOP implant with excellent sensing parameters. COMPLICATIONS: None RECOMMENDATIONS: 1. Occlusive dressing to be changed after 7 days. 2. Do not wet the incision. Og Barone MD Cardiac Electrophysiology.[facility]05-03-2023 Note0 points Class I Risk 3.9 % 30-day risk of , AL, or cardiac arrest METS greater than 6 Echo 12/2021 no regional wall motion abnormality, normal LV function and size. Patient can proceed with urological procedure. She is a low risk patient going into a low risk-intermediate procedure. [facility]05-02-2023 NoteUT Electrophysiology Consult Note Reason for visit: Palpitations 07/15/22 Patient here for 3 mo follow up palpitations. She had labs and ECG last week for pre-surgery testing. She is having kidney stone removed on . She says palpitations have improved but there were episodes her HR went to 160bpm at rest. Denies chest pain and SOB. Review of Systems Cardiovascular: Positive for palpitations. All other systems reviewed and are negative. Prior HPI: Morgan Kirkland is a 31 y.o. year old with past medical history including anxiety, fibromyalgia, palpitations, and Sjogren's disease who is referred to EP clinic for palpitation and findings of event monitor. patient started on metoprolol at some point for palpitation which improved partially. Patient had event monitor in December reviewed by Juan Ramirez, WATER RESOURCE SPECIALIST showed sinus tachycardia, atrial arrhythmia. Patient reported increasing pain episode frequency of palpitation heart rate up to 150 associated with chest pressure for few minutes. Otherwise no chest pain or shortness of breath no PND no orthopnea no syncope. She is not on any medication for Sjogren's disease or fibromyalgia. She had complete work-up in the past including echocardiography, routine stress test which were unremarkable. she reported that she had echo done in 12/2021. Denied caffeine intake. Event monitor was reviews by me. There are episodes of long RP tachycardia withrate oif 124 bpm at 6-6:30am. No VT seen or SVT seen. PMH: Past Medical History: Diagnosis Date Palpitations PSH: Past Surgical History: Procedure Laterality Date TONSILLECTOMY SH: Social Determinants of Health Tobacco Use: Low Risk Smoking Tobacco Use: Never Smokeless Tobacco Use: Never Passive Exposure: Not on file Alcohol Use: Not on file Financial Resource Strain: Not on file Food Insecurity: Not on file Transportation Needs: Not on file Physical Activity: Not on file Stress: Not on file Social Connections: Not on file Intimate Partner Violence: Not on file Depression: Not on file Housing Stability: Not on file Allergies: Allergies Allergen Reactions Penicillin Unknown Weight: 113kg Visit Vitals BP 116/82 (BP Location: Right arm, Patient Position: Sitting) Pulse 63 Ht 1.727 m (5' 8 ) Wt 113 kg (250 lb) SpO2 97% BMI 38.01 kg/m??? Smoking Status Never BSA 2.33 m??? Meds: Current Outpatient Medications on File Prior to Visit Medication Sig Dispense Refill metoprolol tartrate (Lopressor) 25 mg tablet TAKE 3 TABLETS BY MOUTH IN THE MORNING AND AT BEDTIME 180 tablet 3 No current facility-administered medications on file prior to visit. ROS: Cardio Basic Cardiovascular Symptoms: no lightheadedness, no leg edema, no syncope, no orthopnea, no PND, no claudication, Constitutional Constitutional: no fever, no night sweats, no significant weight gain, no significant weight loss, no exercise intolerance Eyes Eyes: no dry eyes, no irritation, no vision change ENMT Ears: no difficulty hearing, no ear pain Nose: no frequent nosebleeds, Mouth/Throat: no sore throat, no bleeding gums, no snoring, no dry mouth, no mouth ulcers, no oral abnormalities, no teeth problems Respiratory Respiratory: no cough, no wheezing, no coughing up blood, no sleep apnea Musculoskeletal Musculoskeletal: no muscle aches, no muscle weakness, joint pain+, no back pain, no swelling in the extremities Integumentary Skin no rash, no ulcer, no varicosities, no discoloration, no pruritus Neurologic Neurologic: no loss of consciousness, no weakness, no numbness, no seizures, no dizziness, no headaches Psychiatric Psych: no depression, feeling safe in relationship, no alcohol abuse, Hematologic/Lymphatic Hematologic/Lymphatic no swollen glands, no bruising Physical Exam: Constitutional General Appearance: well-nourished, well-developed, appears stated age Level of Distress: comfortable Psychiatric Mental Status: alert, normal affect Orientation: oriented to time, place, and person Insight: good judgement Eyes Lids and Conjunctivae: non-injected, no xanthelasma ENMT Ears: no lesions on external ear Nose: no lesions on external nose Oropharynx: no cyanosis, no pallor Neck Neck: supple, trachea midline Carotid Arteries: bilateral normal upstroke, no bruits Jugular Veins: normal jugular venous pressure Thyroid: not enlarged Lungs Respiratory Effort: unlabored Chest Exam: normal curvature, no thoracic deformity Auscultation: clear, no wheezing, no rales, no rhonchi Cardiovascular Rate And Rhythm: regular Heart Sounds: normal S1, normal s2, no gallop Systolic Murmur: not heard Diastolic Murmur: not heard Extremities: no cyanosis, no edema, no peripheral signs of emboli Peripheral Pulses Radial Pulse: normal Abdomen Inspection and Palpation: soft, non distended, no bruit, non tender Musculoskeletal Inspection: no joint swell (more content not included)...[facility]03-06-2023 Hospital Discharge instructions Patient Education 05/19/2022 10:46:00 Dietary Guidelines to Help Prevent Kidney Stones Dietary Guidelines to Help Prevent Kidney Stones Kidney stones are deposits of minerals and salts that form inside your kidneys. Your risk of developing kidney stones may be greater depending on your diet, your lifestyle, the medicines you take, and whether you have certain medical conditions. Most people can reduce their chances of developing kidney stones by following the instructions below. Depending on your overall health and the type of kidney stones you tend to develop, your dietitian may give you more specific instructions. What are tips for following this plan? Reading food labels Choose foods with no salt added or low-salt labels. Limit your sodium intake to less than 1500 mg per day. Choose foods with calcium for each meal and snack. Try to eat about 300 mg of calcium at each meal.Foods that contain 200 500 mg of calcium per serving include: ?8 oz (237 ml) of milk, fortified nondairy milk, and fortified fruit juice. ?8 oz (237 ml) of kefir, yogurt, and soy yogurt. ?4 oz (118 ml) of tofu. ?1 oz of cheese. ?1 cup (300 g) of dried figs. ?1 cup (91 g) of cooked broccoli. ?1 3 oz can of sardines or mackerel. Most people need 1000 to 1500 mg of calcium each day. Talk to your dietitian about how much calciumis recommended for you. Shopping Buy plenty of fresh fruits and vegetables. Most people do not need to avoid fruits and vegetables, even if they contain nutrients that may contribute to kidney stones. When shopping for convenience foods, choose: ?Whole pieces of fruit. ?Premade salads with dressing on the side. ?Low-fat fruit and yogurt smoothies. Avoid buying frozen meals or prepared deli foods. Look for foods with live cultures, such as yogurt and kefir. Cooking Do not add salt to food when cooking. Place a salt shaker on the table and allow each person to addhis or her own salt to taste. Use vegetable protein, such as beans, textured vegetable protein (TVP), or tofu instead of meat in pasta, casseroles, and soups. Meal planning Eat less salt, if told by your dietitian. To do this: ?Avoid eating processed or premade food. ?Avoid eating fast food. Eat less animal protein, including cheese, meat, poultry, or fish, if told by your dietitian. To dothis: ?Limit the number of times you have meat, poultry, fish, or cheese each week. Eat a diet free of meat at least 2 days a week. ?Eat only one serving each day of meat, poultry, fish, or seafood. ?When you prepare animal protein, cut pieces into small portion sizes. For most meat and fish, one serving is about the size of one deck of cards. Eat at least 5 servings of fresh fruits and vegetables each day. To do this: ?Keep fruits and vegetables on hand for snacks. ?Eat 1 piece of fruit or a handful of berries with breakfast. ?Have a salad and fruit at lunch. ?Have two kinds of vegetables at dinner. Limit foods that are high in a substance called oxalate. These include: ?Spinach. ?Rhubarb. ?Beets. ?Potato chips and kyrgyz fries. ?Nuts. If you regularly take a diuretic medicine, make sure to eat at least 1 2 fruits or vegetables high in potassium each day. These include: ?Avocado. ?Banana. ?Fiatt, prune, carrot, or tomato juice. ?Baked potato. ?Cabbage. ?Beans and split peas. General instructions Drink enough fluid to keep your urine clear or pale yellow. This is the most important thing you can do. Talk to your health care provider and dietitian about taking daily supplements. Depending on your health and the cause of your kidney stones, you may be advised: ?Not to take supplements with vitamin C. ?To take a calcium supplement. ?To take a daily probiotic supplement. ?To take other supplements such as magnesium, fish oil, or vitamin B6. Take all medicines and supplements as told by your health care provider. Limit alcohol intake to no more than 1 drink a day for non women and 2 drinks a day for men. One drink equals 12 oz of beer, 5 oz of wine, or 1 oz of hard liquor. Lose weight if told by your health care provider. Work with your dietitian to find strategies and an eating plan that works best for you. What foods are not recommended? Limit your intake of the following foods, or as told by your dietitian. Talk to your dietitian about specific foods you should avoid based on the type of kidney stones and your overall health. Grains Breads. Bagels. Rolls. Baked goods. Salted crackers. Cereal. Pasta. Vegetables Spinach. Rhubarb. Beets. Canned vegetables. Pickles. Olives. Meats and other protein foods Nuts. Nut butters. Large portions of meat, poultry, or fish. Salted or cured meats. Deli meats. Hotdogs. Sausages. Dairy Cheese. Beverages Regular soft drinks. Regular vegetable juice. Seasonings and other foods Seasoning blends with salt. Salad dressings. Canned soups. Soy sauce. Ketchup. Barbecue sauce. Canned pasta sauce. Casseroles. Pizza. Lasagna. Frozen meals. Potato chips. Angolan fries. Summary You can reduce your risk of kidney stones by making changes to your diet. The most important thing you can do is drink enough fluid. You should drink enough fluid to keep your urine clear or pale yellow. Ask your health care provider or dietitian how much protein from animal sources you should eat eachday, and also how much salt and calcium you should have each day. This information is not intended to replace advice given to you by your health care provider. Make sure you discuss any questions you have with your health care provider. Document Released: 06/27/2011 Document Revised: 06/22/2019 Document Reviewed: 02/10/2017 [id number] Patient Education 2020 [employer]. Follow Up Care 05/16/2022 10:14:36 With:MIKY SAMPSON, Clark Roldan, URL Address: [facility] [address] , [place] [address]- When: Unknown [facility] [place] 03-03-2023 Evaluation note* Encounter Date Diagnosis Assessment Notes Treatment Notes Treatment Clinical Notes May, Thyroid disease (ICD-10 - E07.9) [facility] Other 02-24-2023 Evaluation note* Encounter Date Diagnosis Assessment Notes Treatment Notes Treatment Clinical Notes Apr, Dysuria (ICD-10 - R30.0) [facility] Other 02-14-2023 NoteUT Electrophysiology Consult Note Reason for visit: Palpitations HPI: Morgan Kirkland is a 31 y.o. year old with past medical history including anxiety, fibromyalgia, palpitations, and Sjogren's disease who is referred to EP clinic for palpitation and findings of event monitor. patient started on metoprolol at some point for palpitation which improved partially. Patient had event monitor in December reviewed by Juan Ramirez, GIDEON showed sinus tachycardia, atrial arrhythmia. Patient reported increasing pain episode frequency of palpitation heart rate up to 150 associated with chest pressure for few minutes. Otherwise no chest pain or shortness of breath no PND no orthopnea no syncope. She is not on any medication for Sjogren's disease or fibromyalgia. She had complete work-up in the past including echocardiography, routine stress test which were unremarkable. she reported that she had echo done in 12/2021. Deniedcaffeine intake. Event monitor was reviews by me. There are episodes of long RP tachycardia withrate oif 124 bpm at 6-6:30am. No VT seen or SVT seen. PMH: No past medical history on file. PSH: Past Surgical History: Procedure Laterality Date TONSILLECTOMY SH: Social Determinants of Health Tobacco Use: Low Risk Smoking Tobacco Use: Never Smokeless Tobacco Use: Never Passive Exposure: Not on file Alcohol Use: Not on file Financial Resource Strain: Not on file Food Insecurity: Not on file Transportation Needs: Not on file Physical Activity: Not on file Stress: Not on file Social Connections: Not on file Intimate Partner Violence: Not on file Depression: Not on file Housing Stability: Not on file Allergies: Allergies Allergen Reactions Penicillin Unknown Weight: 104kg Visit Vitals BP 128/60 Pulse 64 Ht 1.727 m (5' 8 ) Wt 104 kg (230 lb) SpO2 99% BMI 34.97 kg/m??? Smoking Status Never BSA 2.23 m??? Meds: Current Outpatient Medications on File Prior to Visit Medication Sig Dispense Refill metoprolol tartrate (Lopressor) 25 mg tablet Take 3 tablets (75 mg) by mouth in the morning and at bedtime. 180 tablet 3 No current facility-administered medications on file prior to visit. ROS: Cardio Basic Cardiovascular Symptoms: no lightheadedness, no leg edema, no syncope, no orthopnea, no PND, no claudication, Constitutional Constitutional: no fever, no night sweats, no significant weight gain, no significant weight loss, no exercise intolerance Eyes Eyes: no dry eyes, no irritation, no vision change ENMT Ears: no difficulty hearing, no ear pain Nose: no frequent nosebleeds, Mouth/Throat: no sore throat, no bleeding gums, no snoring, no dry mouth, no mouth ulcers, no oral abnormalities, no teeth problems Respiratory Respiratory: no cough, no wheezing, no coughing up blood, no sleep apnea Musculoskeletal Musculoskeletal: no muscle aches, no muscle weakness, joint pain+, no back pain, no swelling in the extremities Integumentary Skin no rash, no ulcer, no varicosities, no discoloration, no pruritus Neurologic Neurologic: no loss of consciousness, no weakness, no numbness, no seizures, no dizziness, no headaches Psychiatric Psych: no depression, feeling safe in relationship, no alcohol abuse, Hematologic/Lymphatic Hematologic/Lymphatic no swollen glands, no bruising Physical Exam: Constitutional General Appearance: well-nourished, well-developed, appears stated age Level of Distress: comfortable Psychiatric Mental Status: alert, normal affect Orientation: oriented to time, place, and person Insight: good judgement Eyes Lids and Conjunctivae: non-injected, no xanthelasma ENMT Ears: no lesions on external ear Nose: no lesions on external nose Oropharynx: no cyanosis, no pallor Neck Neck: supple, trachea midline Carotid Arteries: bilateral normal upstroke, no bruits Jugular Veins: normal jugular venous pressure Thyroid: not enlarged Lungs Respiratory Effort: unlabored Chest Exam: normal curvature, no thoracic deformity Auscultation: clear, no wheezing, no rales, no rhonchi Cardiovascular Rate And Rhythm: regular Heart Sounds: normal S1, normal s2, no gallop Systolic Murmur: not heard Diastolic Murmur: not heard Extremities: no cyanosis, no edema, no peripheral signs of emboli Peripheral Pulses Radial Pulse: normal Abdomen Inspection and Palpation: soft, non distended, no bruit, non tender Musculoskeletal Inspection: no joint swelling Neurologic Gait: normal gait Skin Inspection and Palpation: warm and dry Nails: no clubbing Labs: @LABRESULTS@ No results found for: CHOLESTEROL TOTAL, HDL, LDL CALC, LDL DIRECT, TRIGLYCERIDES, TSH, T3 TOTAL, T4 TOTAL, THYROID PEROXIDASE AB, BNP, BNP, BNP EKG: No results found for this or any previous visit (from the past 4464 hour(s)). Echo: Stress test: Coronary angiogram: @CATH@ Diagnostic Imaging: No images are attached to t (more content not included)...[facility]01-31-2023 NotePatient pcp increased dose due to recent ED visit. Was found to be Sinus tachycardia and patient getting sick at the time, developed fever Had elevated ESR, TSH was 3.4, T3 and T4 normal. Discussed with patient to continue the increased dose of metoprolol 75mg BID If she does not tolerate (lightheadedness, dizziness, shortness of breath) she can reduce back to metoprolol 50mg BID. Her clinic follow up with dr. Barone was moved up to 04/29/22 at the [facility]. I did give patient my google voice number if she has any other events or concerns and to [facility]01-26-2023 Evaluation note* Encounter Date Diagnosis Assessment Notes Treatment Notes Treatment Clinical Notes Mar, Goiter (ICD-10 - E04.9) Advise she take extra metoprolol as needed to improve heart rate. Discussed possible link between thyroid and elevated heart rate. May require endocrinology referral. Will assess ultrasound first. TSH was checked in October or November 2021 and it was normal at that time. Mar, Tachycardia (ICD-10 - R00.0) Mar, Acute non-recurrent maxillary sinusitis (ICD-10 - J01.00) [facility] Other 01-25-2023 Notehypertension is stable today.[facility]01-25-2023 Note- Event monitor was not reported as read -There are some concerns for an atrial arrhythmia -I will increase metoprolol to tartrate to 50 mg twice daily -I will have her see Dr. Barone follow-up to discuss her event monitor -She is in the meantime to call with any worsening symptoms, intolerance of metoprolol, and any syncopal eventsR[facility] NoteUT Cardiology Consult Note Reason for visit: HPI: Morgan Kirkland is a 31 y.o. year old with past medical history of anxiety, fibromyalgia, has palpitations, Sjogren's disease. She was recently seen by Dr. Pearce who Ordered an echo which was unremarkable. She was started on metoprolol tartrate 25 mg twice daily for palpitations and reported faster heart rate. She had an event monitor ordered has not been interpreted by physician and I did relay that to her but I did go over it with her. From what I can review she was found to have multiple events of sinus tachycardia with the highest rate of 126. Some of her sinus arrhythmia and sinus tachycardia which she activated for symptoms of shortness of breath or chest pressure shows a potential atrial arrhythmia. Cannot clearly define the arrhythmia and she is aware of the but I will set her up to see Dr. Barone on follow-up She continues to have palpitation with associated shortness of breath and chest discomfort. She has been tolerating her metoprolol dose so we discussed increasing her dose until she is seen by Dr. Barone Review of Systems Constitutional: Negative for malaise/fatigue. Cardiovascular: Positive for palpitations. Negative for chest pain and dyspnea on exertion. Respiratory: Positive for shortness of breath. Neurological: Positive for light-headedness. Negative for dizziness and weakness. All other systems reviewed and are negative. Previous per Dr. Pearce 01/29/22: HPI: Morgan Kirkland is a 31 y.o. female with a past medical history including anxiety, fibromyalgia, palpitations, and Sjogren's disease who is referred to Cardiology clinic for evaluation of palpitations. Patient presents today for follow-up. Overall, patient is doing well.Palpitations are better controlled. However, patient states that she notes that in the morning, when she awakes and prior to taking her Toprol-XL, she notices that her heart rate is fast.She denies any associated symptoms. She denies any chest pain. She denies any shortness of breath. She denies any lower extremity edema, orthopnea, or paroxysmal nocturnal dyspnea. Echo was ordered during her previous visit. Echo was unremarkable. EF is normal. No significant wall motion abnormalities were noted. No significant valvular abnormalities were noted. RV function appeared to be normal. Repeat 30-day event monitor was ordered and is pending. PMH: No past medical history on file. Patient Active Problem List Diagnosis Acute bronchitis Anxiety Back pain BMI 35.0-35.9,adult Bursitis Contact dermatitis Eczema Epigastric pain Fibromyalgia Gastroesophageal reflux disease Gross hematuria Hypertension Otitis media Palpitations Precordial pain Primary Sjogren's syndrome (CMS/HCC) Right flank pain Spontaneous ecchymosis Symptoms involving urinary system Syncope PSH: Past Surgical History: Procedure Laterality Date TONSILLECTOMY SH: Social Determinants of Health Tobacco Use: Low Risk Smoking Tobacco Use: Never Smokeless Tobacco Use: Never Passive Exposure: Not on file Alcohol Use: Not on file Financial Resource Strain: Not on file Food Insecurity: Not on file Transportation Needs: Not on file Physical Activity: Not on file Stress: Not on file Social Connections: Not on file Intimate Partner Violence: Not on file Depression: Not on file Housing Stability: Not on file Allergies: Allergies Allergen Reactions Penicillin Unknown Weight: 107kg Visit Vitals BP 116/66 (BP Location: Right arm, Patient Position: Sitting) Pulse 80 Ht 1.727 m (5' 8 ) Wt 107 kg (236 lb) SpO2 99% BMI 35.88 kg/m??? Smoking Status Never BSA 2.27 m??? Meds: No current outpatient medications on file prior to visit. No current facility-administered medications on file prior to visit. Metoprolol 25mg BID Physical Exam: Constitutional General Appearance: well-nourished, well-developed, appears stated age Level of Distress: comfortable Psychiatric Mental Status: alert, normal affect Orientation: oriented to time, place, and person Insight: good judgement Eyes Lids and Conjunctivae: non-injected, no xanthelasma ENMT Ears: no lesions on external ear Nose: no lesions on external nose Oropharynx: no cyanosis, no pallor Neck Neck: supple, trachea midline Carotid Arteries: bilateral normal upstroke, no bruits Jugular Veins: normal jugular venous pressure Thyroid: not enlarged Lungs Respiratory Effort: unlabored Chest Exam: normal curvature, no thoracic deformity Auscultation: clear, no wheezing, no rales, no rhonchi Cardiovascular Rate And Rhythm: regular Heart Sounds: normal S1, normal s2, no gallop Systolic Murmur: not heard Diastolic Murmur: not heard Extremities: no cyanosis, no edema, no peripheral signs of emboli Peripheral Pulses (more content not included)...[facility] No data available for this section [facility] evaluation + Plan note Future Appointments Appointment Date:01/29/2024 08:30:00 AM Scheduled Provider:MIKY SAMPSON, Clark Roldan Location:[facility] Appointment Type:URO Office Visit [facility] evaluation noteNo InformationNort [employer] Other Evaluation noteNo assessment information available [facility] Work Phone: Evaluation note* Diagnosis Postural dizziness with near syncope documented in this encounter [facility] general Narrative - Reported* Type Description Date Medical History tachycardia Medical History anxiety Medical History sjogren syndrome Surgical History tonsillectomy and adenoidectomy [facility] Other Progress note No data available for this section [facility] Summary Purpose Family History Relationship Condition Age at Onset Recorded Date/T livia father Heart disease Unknown Not Specified Hypertension Unknown grandparent Malignant neoplasm of prostate Unknown Diabetes mellitus Unknown grandparent Heart disease Unknown brother Hypertension Unknown Advance Directives Advance Directive Response Recorded Date/ Time Advance Directives No April 10:31am Advance Directive Response Recorded Date/ Time Advance Directives No April 9:31am Chief Complaint and Reason for Visit Chief Complaint Adenomyeosis, LLQ Pa in, Menorrhagia Chief Complaint Adenomyeosis, LLQ Pa in, Menorrhagia Adenomyeosis, LLQ Pain, Menorrhagia Reason for Referral Specialty Diagnoses / Procedures Referred By Contac t Referred To Contact Diagnoses Postural dizziness with near syncope Procedures Tilt table Elana Ramirez APRN - [employer] LO[employer] SPECIALIST [id number] [place] [address] Referral ID Status Reason Start Date Expiration Date Visits Re quested Visits Authorized [id number] Closed 02/16/2023 02/16/2024 1 1 Additional Source Comments INFORMATION SOURCE (unrecogn ized section and content) DATE CREATED AUTHOR 03/29/2019 [facility] DATE CREATED AUTHOR AUTHOR'S ORGANIZ ATION 07/24/2022 [facility] DATE CREATED AUTHOR AUTHOR'S ORGANIZ ATION 01/25/2023 [facility] DATE CREATED AUTHOR AUTHOR'S ORGANIZ ATION 01/29/2023 [facility] DATE CREATED AUTHOR AUTHOR'S ORGANIZ ATION 02/11/2023 [facility] DATE CREATED AUTHOR AUTHOR'S ORGANIZ ATION 03/02/2023 [facility] DATE CREATED AUTHOR AUTHOR'S ORGANIZ ATION 03/04/2023 [facility] REASON FOR VISIT (unrecogniz ed section and content) sleep apnea discussion Specialty Diagnoses / Procedures Referred By Contac t Referred To Contact Diagnoses Postural dizziness with near syncope Procedures Tilt table Elana Ramirez APRN - [employer] SPECIALIST [id number] [place] [address] Referral ID Status Reason Start Date Expiration Date Visits Re quested Visits Authorized [id number] Closed 02/16/2023 02/16/2024 1 1 Patient Care team informatio n (unrecognized section and content) Team Status: Active Member Role Status Dates David Newberry MD Primary Care Provider Active Team Status: Inactive Member Role Status Dates David Newberry MD Primary Care Provider Active Dasha Garcia DO Attending Provider Active Team Status: Inactive Member Role Status Dates David Newberry MD Primary Care Provider Active Enrique Lucas MD Attending Provider Active Documentation Engineer Relationship Specialty Start Date End Date David Newberry MD [address] [place] [id number] PCP - General Family Medicine 02/27/23 Goals (unrecognized section and content) Goals may be documented in a n alternate section FOR RECORDS PERTAINING TO PATIENTS WHO ARE OR HAVE BEEN ENROLLED IN A CHEMICAL DEPENDENCY/SUBSTANCEABUSE PROGRAM, SOME INFORMATION MAY BE OMITTED. This clinical summary was aggregated from multiple sources. Caution should be exercised in using it in the provision of clinical care. This summary normalizes information from multiple sources, and as a consequence, information in this document may materially change the coding, format and clinical context of patient data. In addition, data may be omitted in some cases. CLINICAL DECISIONS SHOULD BE BASED ON THE PRIMARY CLINICAL RECORDS. [employer] provides no warranty or guarantee of the accuracy or completeness of information in this document.
== END 2023-03-31 12:33 | disposition home or self-care (01) ==
LOC: SLEEP 12:33
PROVIDERS: PCP Family Medicine; Visit Provider Family Medicine
DX: G47.33 Obstructive sleep apnea (adult) (pediatric) (principal)
CPT/HCPCS: 95806

== ENCOUNTER 2023-04-14 20:01 | Outpatient (OUT) | payer OTHER, SELFPAY ==
--- OUTSIDE RECORDS SUMMARY | 2023-04-14 20:04 | XMS_ITS | CCD ---
Author Name Unknown Address [address] [place] [address] Organization [facility] Care Team Providers Care Financial Secretary Name Role Phone David Newberry Unavailable DAVID NEWBERRY Primary Care Physician [phone] ROHITH, DR DAVID Fisher Admitting Unavailable NEWBERRY, [...] Consulting Unavailable DELFINO COVINGTON Consulting Unavailable MD Davdi Newberry Primary Care Provider DO Dasha Garcia Attending Provider [phone] MD David Newberry Primary Care Provider DO Dasha Garcia Attending Provider [phone] MD Enrique Lucas Attending Provider [phone] Clark CLEMENS Attending Unavailable Clark CLEMENS Attending [...] Allergies Reconciled Propensity to adverse reactions Unknown [facility] Other (2 sources) Substance with penicillin structure and antibacterial mechanism of action (substance) Drug allergy 01-20-20 13 Unknown [facility] Other (2 sources) patient allergy list reviewed by nurse or physicia Propensity to adverse reactions 09-08-19 14 Comment:Done [facility] Other (3 sources) Penicillins; Translations: [Penicillins] Allergy to substance 12-16-19 23 Rash [facility] (3 sources) Povidone-Iodine; Translations: [povidone iodine topical] Drug Allergy 03-03-20 23 Eruption of skin (disorder) [facility] Medications Current Medications Medication Drug Class(es) Dates [...] nitroGLYCERIN (NITROSTAT) SL tablet 0.3 mg Vit 72-Ymod-Eiptd-Dha ( + Dha) 28 mg iron- 975 mcg-200 mg Combo Pack (2 sources) Start: 04-21-2019 End: 12-15-2022 take 1 tablet by mouth once daily Vit 57-Kobj-Mcbyz-Dha ( + Dha) 28 mg iron- 975 mcg-200 mg Combo Pack Discontinued 1 TAB PO Daily April 21, 2019 12:00am December 15, 2022 1:43pm Start: 04-21-2019 End: 12-15-2022 take 1 tablet by mouth once daily Vit 20-Lxhe-Ktazq-Dha ( + Dha) 28 mg iron- 975 [...] [facility] Facility Office Visiton 03-03-2023 Follow-up visit [id number] Ada Kirkland 1990 F Date Provider Department Center 03/03/2023 OG ERVIN RADHA [place] [facility] Family History Problem Relation Age of Onset Heart attack Father 44 Coronary artery disease Father Clotting disorder Father Family Status - Relation Status Age at Father Alive Level of Service:52938 IN OFFICE/OUTPATIENT ESTABLISHED MOD MDM 30 MIN Normal [facility] Tilt tableOrdered By: Nadiya bonner on 02-27-2023 BP (Initial Tilt) 125/97 mmHg [facility] [employer] [employer] Phone: BP (Max BP) 139/92 mmHg [facility] [employer] Work Phone: BP (Max Heart Rate) 83/41 mmHg B[facility] S ECOURS [employer] Work Phone: BP (Min BP) 83/41 mmHg MIGUEL SECTHUAN [employer] Work Phone: BP (Min Heart Rate) 111/82 mmHg MIGUEL CANTU [employer] Work Phone: BP (Supine) 131/52 bpm [facility]ON [employer] Work Phone: Heart rate 72 /min bpm MIGUEL [employer] Work Phone: Heart rate 112 /min bpm [facility] [employer] Work Phone: Minutes (Max BP) 22 BON SECO KALI [employer] Work Phone: Minutes (Max Heart Rate) 23 MIGUEL [employer] Work Phone: Minutes (Min BP) 23 BON SECO [employer] Work Phone: Minutes (Min Heart Rate) 6 MIGUEL [employer] Work Phone: Rhythm (Initial Tilt) SR MIGUEL [employer] Work Phone: Rhythm (Max BP) ST [facility] RS [employer] Phone: Rhythm (Max Heart Rate) ST MIGUEL [employer] Phone: Rhythm (Min BP) [facility] [employer] Phone: Rhythm (Min Heart Rate) SR [employer] Phone: Rhythm (Supine) SR BON SEC[facility] RS [employer] Work Phone: BON [employer] Phone: Tilt tableon 02-27-2023 Tilt Study Conclusio [...] with their primary care physician and/ or producer director as previously scheduled. [facility] CV CPACS Radiology Study observation (narrative) [facility] Vital signsOrdered By: Nadiya douglass on 02-27-2023 Heart rate 78 /min bpm [employer] Work Phone: Heart rate 122 /min bpm [employer] Phone: Ambulatory Visit Summaryon 1 03-25-2022 Ambulatory Visit Summary MORGAN KIRKLAND :1990 Visit Date:01/23/2023 Ambulatory Visit Instructions Your Diagnosis History of kidney stones Recurrent UTI Tests Performed Urnls Dip Stick Auto w/o Microscopy POC 92285 XR Abdomen 1 View -- Results Pending [...] SAMPSON, Clark Roldan Where: [facility] Lab Reportson 01-23-2023 Lab Reports [id number] [facility] Patient Educationon 01-24-20 23 Patient Education Obstetrics [...] these instructions at home: Medicines ? Take sqwl-bts-flnqryw and prescription medicines only as told by [...] provider. Document Revised: 10/12/2020 Document Reviewed: 10/12/2020 [employer] Patient Education ? 2022 [employer] [facility] 01-23-2023 [facility] [id number] [facility] Urology Office/Clinic Noteon 01-23-2023 Urology Office/Clinic Note [...] [facility] [address], [place] [address]- [phone] Additional Instructions: 1 yr w/ KUB Patient Education Urinary Tract Infection, Adult, Gamz-br-Bnbh Antionette Sparks, personally scribed for Dr. Clemens [...] (01/23/23 09:04:00) (more content not included)... Normal [facility] Comment on above: Result Comment: Elec tronically Signed By: Clark CLEMENS MD\.br\Date and Time Signed: 01/23/23 09:41 EST\.br\Electronically Co-Signed By: Antionette Huizar\.br\Date and Time Co-Signed: 01/23/23 09:39 EST Physician Orderon 01-21-2023 Physician Order [id number] Normal [facility] Automated erythrocytes count in urine sediment (number/area)Ordered By: Enrique Lucas on 01-20-2023 RBC Auto (Urine sed) [#/Area] 10-19 [HPF] 0-4 [facility] Automated leukocytes count i n urine sediment (number/area)Ordered By: Enrique Lucas on 01-20-2023 WBC Auto (Urine sed) [#/Area] 5-9 [HPF] 0-4 [facility] Basophils Auto (Bld) [#/Vol] Ordered By: Enrique Lucas on 01-20-2023 Basophils (Bld) [#/Vol] 0.1 10*3/uL 0.0-0.2 [facility] Basophils/100 WBC Auto (Bld) Ordered By: Enrique Lucas on 01-20-2023 Basophils/100 WBC (Bld) 0.7 % . [facility] Bilirubin Test strip Ql (U)O rdered By: Enrique Lucas on 01-20-2023 Bilirubin Ql (U) Negative Negative [facility] C reactive protein [Mass/vol ume] in Serum or PlasmaOrdered By: Enrique Lucas on 01-20-2023 CRP [Mass/Vol] 0.5 mg/dL 0.0-0.5 [facility] C-Reactive Proteinon 023 C-Reactive Protein 0.5 mg/dL Normal 0.0-0.5 [facility] Comment on above: Result Comment: PERF ORMED BY: [facility] [address] [place] [address] PATHOLOGIST FRONT OFFICE ASSISTANT OLIMPIA MORA M.D. Performed By: #### B MP #### [address] Color Auto (U)Ordered By: Marybeth Lucas on 01-20-2023 Color (U) Yellow Yellow [facility] Complement C3on 01-20-2023 Complement C3 182 mg/dL High 82-167 [facility] Comment on above: Result Comment: Perf ormed at: - [facility] [id number] Bobbin Coil Winder: Chris Urban PhD, Phone: [phone] Performed By: #### B MP #### [address] Complement C4on 01-20-2023 Complement C4 29 mg/dL Normal 12-38 [facility] Comment on above: Result Comment: PERF ORMED BY: [place] [address] PATHOLOGIST FRONT OFFICE ASSISTANT OLIMPIA MORA M.D. Performed By: #### B MP #### [address] Complete Blood Count Auto Di ffon 01-20-2023 Basophils (Bld) [#/Vol] 0.1 10*3/uL Normal 0.0-0.2 [facility] Comment on above: Performed By: #### B MP #### [address] Basophils/100 WBC (Bld) 0.7 % Normal . [facility] Comment on above: Performed By: #### B MP #### [place] [address] [place] Eosinophils (Bld) [#/Vol] 0.2 10*3/uL Normal 0.0-0.45 [facility] Comment on above: Performed By: #### B MP #### [address] Eosinophils/100 WBC (Bld) 3.0 % Normal . [facility] Comment on above: Performed By: #### B MP #### [address] Erythrocyte distribution width (RBC) [Ratio] 13.0 % Normal 11.9-15.3 [facility] Comment on above: Performed By: #### B MP #### [address] Hematocrit (Bld) [Volume fraction] 41.5 % Normal 34.0-46.4 [facility] Comment on above: Performed By: #### B MP #### [address] Hemoglobin (Bld) [Mass/Vol] 14.0 g/dL Normal 11.8-15.4 [facility] Comment on above: Performed By: #### B MP #### [address] Lymphocytes (Bld) [#/Vol] 2.6 10*3/uL Normal 1.00-4.8 [facility] Comment on above: Performed By: #### B MP #### [address] Lymphocytes/100 WBC (Bld) 35.4 % Normal . [facility] Comment on above: Performed By: #### B MP #### [address] MCH (RBC) [Entitic mass] 30.2 pg Normal 24.7-34.3 [facility] Comment on above: Performed By: #### B MP #### [address] MCV (RBC) [Entitic vol] 89.4 fL Normal 80-100 [facility] Comment on above: Performed By: #### B MP #### [address] Mean Corpuscular HGB Conc 33.7 g/dL Normal 32.0-35.0 [facility] Comment on above: Performed By: #### B MP #### [address] Monocytes (Bld) [#/Vol] 0.4 10*3/uL Normal 0.0-0.8 [facility] Comment on above: Performed By: #### B MP #### [facility] [address] [place] [address] [place] Monocytes/100 WBC (Bld) 5.3 % Normal . [facility] Comment on above: Performed By: #### B MP #### [facility] [address] [place] [address] [place] Neutrophils (Bld) [#/Vol] 4.1 10*3/uL Normal 1.8-7.7 [facility] Comment on above: Performed By: #### B MP #### [facility] [address] Neutrophils/100 WBC (Bld) 55.6 % Normal . [facility] Comment on above: Performed By: #### B MP #### [address] NRBC% 0.1 /100{WBC} Normal 0-0.5 [facility] Comment on above: Performed By: #### B MP #### [address] Platelet mean volume (Bld) [Entitic vol] 8.5 fL Normal 6.3-10.7 [facility] Comment on above: Performed By: #### B MP #### [place] [address] [place] Platelets (Bld) [#/Vol] 253 10*3/uL Normal 150-450 [facility] Comment on above: Performed By: #### B MP #### [place] [address] [place] RBC (Bld) [#/Vol] 4.65 10*6/uL Normal 3.60-5.00 [facility] Comment on above: Performed By: #### B MP #### [address] WBC (Bld) [#/Vol] 7.4 10*3/uL Normal 3.8-11.6 [facility] Comment on above: Performed By: #### B MP #### [facility] [address] [place], [place] [id number] [place] Creatinineon 01-20-2023 Creatinine [Mass/Vol] 0.70 mg/dL Normal 0.60-1.20 [facility] Comment on above: Performed By: #### C 4, C3 #### [facility] , #### ADDONUAPLUS, CBC, CRP, CUU, CREAT, ESR #### [place] [address] [place] GFR/1.73 sq M.predicted MDRD (S/P/Bld) [Vol rate/Area] mL/min/{1.73_m2} Normal [facility] Comment on above: Performed By: #### C 4, C3 #### [facility] , #### ADDONUAPLUS, CBC, CRP, CUU, CREAT, ESR #### [address] Creatinine [Mass/volume] in Serum or PlasmaOrdered By: Enrique Lucas on 01-20-2023 Creatinine [Mass/Vol] 0.70 mg/dL 0.60-1.20 [facility] Dipstick and Microscopicon 1 03-22-2022 Appearance (U) Clear Normal Clear [facility] Comment on above: Order Comment: Name Collection Type:: Clean-Voided Midstream Performed By: #### C 4, C3 #### [facility] , #### ADDONUAPLUS, CBC, CRP, CUU, CREAT, ESR #### [facility] [address] [place] [address] [place] Bacteria,Urine 1+ High None Seen [facility] Comment on above: Order Comment: Name Collection Type:: Clean-Voided Midstream Performed By: #### C 4, C3 #### [facility] , #### ADDONUAPLUS, CBC, CRP, CUU, CREAT, ESR #### [facility] [address] [place] [address] [place] Bilirubin,Urine Negative Normal Negative [facility] Comment on above: Order Comment: Name Collection Type:: Clean-Voided Midstream Performed By: #### C 4, C3 #### [facility] , #### ADDONUAPLUS, CBC, CRP, CUU, CREAT, ESR #### [facility] [address] [place] [address] Color (U) Yellow Normal Yellow [facility] Comment on above: Order Comment: Name Collection Type:: Clean-Voided Midstream Performed By: #### C 4, C3 #### [facility] , #### ADDONUAPLUS, CBC, CRP, CUU, CREAT, ESR #### [facility] [address] [place] [address] Glucose Ql (U) Normal Normal Normal [facility] Comment on above: Order Comment: Name Collection Type:: Clean-Voided Midstream Performed By: #### C 4, C3 #### [facility] , #### ADDONUAPLUS, CBC, CRP, CUU, CREAT, ESR #### [facility] [address] [place] [address] Hyaline Casts,Urine None Seen Normal 0-8 [facility] Comment on above: Order Comment: Name Collection Type:: Clean-Voided Midstream Result Comment: PERF ORMED BY: [place] [address] PATHOLOGIST FRONT OFFICE ASSISTANT OLIMPIA MORA M.D. Performed By: #### C 4, C3 #### [facility] , #### ADDONUAPLUS, CBC, CRP, CUU, CREAT, ESR #### [facility] [address] [place] [address] Ketones Ql (U) Negative Normal Negative [facility] Comment on above: Order Comment: Name Collection Type:: Clean-Voided Midstream Performed By: #### C 4, C3 #### [facility] , #### ADDONUAPLUS, CBC, CRP, CUU, CREAT, ESR #### [address] Leukocyte esterase Test strip Ql (U) 2+ High Negative [facility] Comment on above: Order Comment: Name Collection Type:: Clean-Voided Midstream Performed By: #### C 4, C3 #### [facility] , #### ADDONUAPLUS, CBC, CRP, CUU, CREAT, ESR #### [address] Nitrite,Urine Negative Normal Negative [facility] Comment on above: Order Comment: Name Collection Type:: Clean-Voided Midstream Performed By: #### C 4, C3 #### [facility] , #### ADDONUAPLUS, CBC, CRP, CUU, CREAT, ESR #### [address] Occult Blood,Urine Trace High Negative [facility] Comment on above: Order Comment: Name Collection Type:: Clean-Voided Midstream Performed By: #### C 4, C3 #### [facility] , #### ADDONUAPLUS, CBC, CRP, CUU, CREAT, ESR #### [address] pH (U) 6.0 [pH] Normal 5.0-9.0 [facility] Comment on above: Order Comment: Name Collection Type:: Clean-Voided Midstream Performed By: #### C 4, C3 #### [facility] , #### ADDONUAPLUS, CBC, CRP, CUU, CREAT, ESR #### [address] Protein,Urine Negative Normal Negative [facility] Comment on above: Order Comment: Name Collection Type:: Clean-Voided Midstream Performed By: #### C 4, C3 #### [facility] , #### ADDONUAPLUS, CBC, CRP, CUU, CREAT, ESR #### [address] RBC,Urine 10-19 High 0-4 [facility] Comment on above: Order Comment: Name Collection Type:: Clean-Voided Midstream Performed By: #### C 4, C3 #### [facility] , #### ADDONUAPLUS, CBC, CRP, CUU, CREAT, ESR #### [address] Specificy [place],Urine 1.016 Normal 1.001-1.03 0 [facility] Comment on above: Order Comment: Name Collection Type:: Clean-Voided Midstream Performed By: #### C 4, C3 #### [facility] , #### ADDONUAPLUS, CBC, CRP, CUU, CREAT, ESR #### [address] Squamous Epithelial Cell,Urine 3-4 High 0-2 [facility] Comment on above: Order Comment: Name Collection Type:: Clean-Voided Midstream Performed By: #### C 4, C3 #### [facility] , #### ADDONUAPLUS, CBC, CRP, CUU, CREAT, ESR #### [address] Urobilinogen,Urine Normal Normal Normal [facility] Comment on above: Order Comment: Name Collection Type:: Clean-Voided Midstream Performed By: #### C 4, C3 #### [facility] , #### ADDONUAPLUS, CBC, CRP, CUU, CREAT, ESR #### [address] WBC,Urine 5-9 High 0-4 [facility] Comment on above: Order Comment: Name Collection Type:: Clean-Voided Midstream Performed By: #### C 4, C3 #### [facility] , #### ADDONUAPLUS, CBC, CRP, CUU, CREAT, ESR #### [facility] [address] Eosinophils Auto (Bld) [#/Vo l]Ordered By: Enrique Lucas on 01-20-2023 Eosinophils (Bld) [#/Vol] 0.2 10*3/uL 0.0-0.45 [facility] Eosinophils/100 WBC Auto (Bl d)Ordered By: Enrique Lucas on 01-20-2023 Eosinophils/100 WBC (Bld) 3.0 % . [facility] Erythrocyte Sedimentation Ra jeniffer 01-20-2023 ESR (Bld) [Velocity] 13 mm/h Normal 0-19 [facility] Comment on above: Result Comment: PERF ORMED BY: [place] [address] PATHOLOGIST FRONT OFFICE ASSISTANT OLIMPIA MORA M.D. Performed By: #### B MP #### [facility] [address] [place] [address] Erythrocyte distribution wid th Auto (RBC) [Ratio]Ordered By: Enrique Lucas on 01-20-2023 Erythrocyte distribution width (RBC) [Ratio] 13.0 % 11.9-15.3 [facility] Erythrocyte sedimentation ra te by Photometric methodOrdered By: Enrique Lucas on 01-20-2023 ESR Photometric method (Bld) [Velocity] 13 mm/hr 0-19 [facility] Hematocrit Auto (Bld) [Volum e fraction]Ordered By: Enrique Lucas on 01-20-2023 Hematocrit (Bld) [Volume fraction] 41.5 % 34.0-46.4 [facility] Hemoglobin [Mass/volume] in BloodOrdered By: Enrique Lucas on 01-20-2023 Hemoglobin (Bld) [Mass/Vol] 14.0 g/dL 11.8-15.4 [facility] Ketones Auto test strip (U) [Mass/Vol]Ordered By: Enrique Lucas on 01-20-2023 Ketones (U) [Mass/Vol] Negative Negative [facility] - UrinalysisOrder ed By: Enrique Lucas on 01-20-2023 Hyaline casts LM Ql (Urine sed) None seen [LPF] 0-8 [facility] Leukocytes [#/volume] correc dave for nucleated erythrocytes in Blood by Automated counOrdered By: Enrique Lucas on 01-20-2023 WBC corrected for nucl RBC Auto (Bld) [#/Vol] 7.4 10*3/uL 3.8-11.6 [facility] Lymphocytes Auto (Bld) [#/Vo l]Ordered By: Enrique Lucas on 01-20-2023 Lymphocytes (Bld) [#/Vol] 2.6 10*3/uL 1.00-4.8 [facility] Lymphocytes/100 WBC Auto (Bl d)Ordered By: Enrique Lucas on 01-20-2023 Lymphocytes/100 WBC (Bld) 35.4 % . [facility] MCH Auto (RBC) [Entitic mass ]Ordered By: Enrique Lucas on 01-20-2023 MCH (RBC) [Entitic mass] 30.2 pg 24.7-34.3 [facility] MCHC Auto (RBC) [Mass/Vol]Or dered By: Enrique Lucas on 01-20-2023 MCHC (RBC) [Mass/Vol] 33.7 g/dL 32.0-35.0 [facility] MCV Auto (RBC) [Entitic vol] Ordered By: Enrique Lucas on 01-20-2023 MCV (RBC) [Entitic vol] 89.4 fL 80-100 [facility] Monocytes Auto (Bld) [#/Vol] Ordered By: Enrique Lucas on 01-20-2023 Monocytes (Bld) [#/Vol] 0.4 10*3/uL 0.0-0.8 [facility] Monocytes/100 WBC Auto (Bld) Ordered By: Enrique Lucas on 01-20-2023 Monocytes/100 WBC (Bld) 5.3 % . [facility] Neutrophils Auto (Bld) [#/Vo l]Ordered By: Enrique Lucas on 01-20-2023 Neutrophils (Bld) [#/Vol] 4.1 10*3/uL 1.8-7.7 [facility] Neutrophils/100 WBC Auto (Bl d)Ordered By: Enrique Lucas on 01-20-2023 Neutrophils/100 WBC (Bld) 55.6 % . [facility] Nitrite Test strip Ql (U)Ord ered By: Enrique Lucas on 01-20-2023 Nitrite Ql (U) Negative Negative [facility] No Panel InformationOrdered By: Enrique Lucas on 01-20-2023 Estimated GFR (CKD-EPI) > 60.0 mL/Min [facility] Creatinine Clearance (Chem N/A [facility] Nucleated erythrocytes [Pres ence] in Blood by Automated countOrdered By: Enrique Lucas on 01-20-2023 Nucleated RBC Auto Ql (Bld) 0.1 /100{WBC} 0-0.5 [facility] Platelet mean volume Auto (B ld) [Entitic vol]Ordered By: Enrique Lucas on 01-20-2023 Platelet mean volume (Bld) [Entitic vol] 8.5 fL 6.3-10.7 [facility] Platelets Auto (Bld) [#/Vol] Ordered By: Enrique Lucas on 01-20-2023 Platelets (Bld) [#/Vol] 253 10*3/uL 150-450 [facility] Protein Auto test strip (U) [Mass/Vol]Ordered By: Enrique Lucas on 01-20-2023 Protein (U) [Mass/Vol] Negative Negative [facility] RBC Auto (Bld) [#/Vol]Ordere d By: Enrique Lucas on 01-20-2023 RBC (Bld) [#/Vol] 4.65 10*6/uL 3.60-5.00 [facility] Specific gravity Auto test s trip (U) [Rel density]Ordered By: Enrique Lucas on 01-20-2023 Specific gravity (U) [Rel density] 1.016 1.001-1.03 0 [facility] Squamous epithelial cells de tection in urine sediment by light microscopyOrdered By: Enrique Lucas on 01-20-2023 Epithelial cells.squamous LM Ql (Urine sed) 3-4 [HPF] 0-2 [facility] Urine Cultureon 01-20-2023 Bacteria identified Cx Nom (U) 20,000 colonies/ml mixed bacterial skin contaminants 2 Days PERFORMED BY: [place] [address] PATHOLOGIST FRONT OFFICE ASSISTANT OLIMPIA MORA M.D. Normal [facility] Comment on above: Performed By: #### B MP #### [address] Urine bacteria detection by automated methodOrdered By: Enrique Lucas on 01-20-2023 Bacteria Auto Ql (U) 1+ None Seen [facility] Urine clarity by refractomet ry automatedOrdered By: Enrique Lucas on 01-20-2023 Clarity Refractometry automated (U) Clear Clear [facility] Urine glucose measurement by automated test strip (mass/volume)Ordered By: Enrique Lucas on 01-20-2023 Glucose Auto test strip (U) [Mass/Vol] Normal mg/dL Normal [facility] Urine hemoglobin detection b y automated test stripOrdered By: Enrique Lucas on 01-20-2023 Hemoglobin Auto test strip Ql (U) Trace Negative [facility] Urine leukocyte esterase det ection by automated test stripOrdered By: Enrique Lucas on 01-20-2023 Leukocyte esterase Auto test strip Ql (U) 2+ Negative [facility] Urobilinogen Auto test strip (U) [Mass/Vol]Ordered By: Enrique Lucas on 01-20-2023 Urobilinogen (U) [Mass/Vol] Normal mg/dL Normal [facility] WBC Auto (Bld) [#/Vol]Ordere d By: Enrique Lucas on 01-20-2023 WBC (Bld) [#/Vol] 7.4 10*3/uL 3.8-11.6 [facility] pH Auto test strip (U)Ordere d By: Enrique Lucas on 01-20-2023 pH (U) 6.0 [pH] 5.0-9.0 [facility] Office Visiton 01-09-2023 Follow-up visit [id number] Ada Kirkland 1990 F Date Provider Department Center 01/09/2023 [facility] Family History Problem Relation Age of Onset Heart attack Father 44 Coronary artery disease Father Clotting disorder Father Family Status - Relation Status Age at Father Alive Level of Service:23833 IN OFFICE/OUTPATIENT ESTABLISHED MOD MDM 30-39 MIN Normal [facility] HCG ( test) IABaldomeroarjunjacque d Ql (U)Ordered By: LITA BLACKMAN on 12-29-2022 HCG ( test) Ql (U) Negative [facility] HCG,Urineon 12-29-2022 Beta HCG ( test) Ql (U) Negative Normal [facility] Comment on above: Result Comment: PERF ORMED BY: [facility] [address] [place] [address] PATHOLOGIST FRONT OFFICE ASSISTANT OLIMPIA MORA M.D. Performed By: #### U HCG #### [address] Bin 12-29-2022 L ------ Specimen: [id number] Received: 12/29/22 Status: FADIA Espinosa Num: [id number] Spec Type: Surgical Subm Dr: Dasha Garcia, Tissues: A Uterus w/ or w/o tubes ovaries except neoplastic or prolap (CERVIX, DARIO TU Procedures: , Gross/Micro L5 Age/ Patient Sex Location Account Attending Physician Morgan Kirkland 32/F [place] [id number] Dasha Garcia, DO SPEC NUM: [id number] RECD: 12/29/22 STATUS: FADIA JUSTIN NUM: [id number] STEVAN: 12/29/22 [facility] DR: Dasha Garcia DO ENTERED: 12/29/[address] [facility] [address]: SANJIV TYPE: Surgical DEPT: S ORDERED: [...] left sided pelvic pain menorrhagia adenomyosis Specimen: [id number] Received: 12/29/22 Status: FADIA Espinosa Num: [id number] Spec Type: Surgical Subm Dr: Dasha Garcia DO Tissues: A Uterus w/ or w/o tubes ovaries except neoplastic or prolap (CERVIX, DARIO TU Procedures: , Gross/Micro L5 Patient: Morgan Kirkland [id number] (Continued) Specimen: [id number] Received: 12/29/22 (Continued) Signed (signature on file) Daniel Okeefe MD 12/30/222016 Specimen: [id number] Received: 12/29/22 Status: FADIA Espinosa Num: [id number] Spec Type: Surgical Subm Dr: Dasha Garcia DO Tissues: A Uterus w/ or w/o tubes ovaries except neoplastic or prolap (CERVIX, DARIO TU Procedures: , Gross/Micro L5 Patient: Morgan Kirkland [id number] (Continued) Specimen: [id number] Received: 12/29/22 (Continued) Gross Description Received in [...] has a pinpoint lumen on cut section. Freight Elevator Operator sections are submitted in 8 cassettes as follows: A1 - Anterior cervix A2 - Posterior cervix A3-A4 - Anterior endomyometrium A5-A6 - Posterior endomyometrium A7 - Right fallopian tube A8 - Left fallopian tube Microscopic Description Eight H E slides reviewed. The microscopic examination confirms the diagnosis. CPT Codes 86102 Specimen: [id number] Received: 12/29/22 Status: FADIA Justin Num: [id number] Spec Type: Surgical Subm Dr: Dasha Garcia, DO Tissues: A Uterus w/ or w/o tubes ovaries except neoplastic or prolap (CERVIX, DARIO TU Procedures: HE/12, Gross/Micro L (more content not included)... Normal [facility] Activated partial thrombopla stin time (aPTT) in platelet poor plasma by coagulation aOrdered By: Dasha Garcia on 12-15-2022 aPTT Coag (PPP) [Time] 28.2 s 25.1-36.5 [facility] Comment on above: A hematocrit value g reater than 55% may lead to inaccurate results in coagulation testing. Patients having hematocrit values >55% require a special collection tube for coagulation studies. Please contact the laboratory at [phone] for redraw instructions. Basic Metabolic Panelon Anion gap [Moles/Vol] 8.5 mmol/L Normal 6.0-15.0 [facility] Comment on above: Performed By: #### B MP #### [address] Calcium [Mass/Vol] 9.4 mg/dL Normal 8.6-10.3 [facility] Comment on above: Result Comment: PERF ORMED BY: [place] [address] PATHOLOGIST FRONT OFFICE ASSISTANT OLIMPIA MORA M.D. Performed By: #### B MP #### [place] [address] [place] Chloride [Moles/Vol] 105 mmol/L Normal 98-107 [facility] Comment on above: Performed By: #### B MP #### [place] [address] [place] CO2 [Moles/Vol] 28.6 mmol/L Normal 21.0-31.0 [facility] Comment on above: Performed By: #### B MP #### [place] [address] [place] Creatinine [Mass/Vol] 0.86 mg/dL Normal 0.60-1.20 [facility] Comment on above: Performed By: #### B MP #### [place] [address] [place] GFR/1.73 sq M.predicted MDRD (S/P/Bld) [Vol rate/Area] mL/min/{1.73_m2} Normal [facility] Comment on above: Performed By: #### B MP #### [place] [address] [place] Glucose [Mass/Vol] 90 mg/dL Normal 70-100 [facility] Comment on above: Result Comment: [place] Glucose Reference Range is dependent on time and content of last meal. Glucose of more than 200 mg/dL in a nonstressed, ambulatory subject supports the diagnosis of Diabetes Mellitus. ADA recommended reference range Performed By: #### B MP #### [place] [address] [place] Potassium [Moles/Vol] 4.1 mmol/L Normal 3.5-5.1 [facility] Comment on above: Performed By: #### B MP #### [place] [address] [place] Sodium [Moles/Vol] 138 mmol/L Normal 136-145 [facility] Comment on above: Performed By: #### B MP #### [facility] [address] Urea nitrogen [Mass/Vol] 9 mg/dL Normal 7-25 [facility] Comment on above: Performed By: #### B MP #### [facility] [address] Basophils Auto (Bld) [#/Vol] Ordered By: Dasha Garcia on 12-15-2022 Basophils (Bld) [#/Vol] 0.0 10*3/uL 0.0-0.2 [facility] Basophils/100 WBC Auto (Bld) Ordered By: Dasha Garcia on 12-15-2022 Basophils/100 WBC (Bld) 0.6 % . [facility] Calcium [Mass/volume] in Ser um or PlasmaOrdered By: Dasha Garcia on 12-15-2022 Calcium [Mass/Vol] 9.4 mg/dL 8.6-10.3 [facility] Carbon dioxide, total [Moles /volume] in Serum or PlasmaOrdered By: Dasha Garcia on 12-15-2022 CO2 [Moles/Vol] 28.6 mmol/L 21.0-31.0 [facility] Chloride [Moles/volume] in S misael or PlasmaOrdered By: Dasha Garcia on 12-15-2022 Chloride [Moles/Vol] 105 mmol/L 98-107 [facility] Complete Blood Count Auto Di ffon 12-15-2022 Basophils (Bld) [#/Vol] 0.0 10*3/uL Normal 0.0-0.2 [facility] Comment on above: Result Comment: PERF ORMED BY: [place] [address] PATHOLOGIST FRONT OFFICE ASSISTANT OLIMPIA MORA M.D. Performed By: #### C BC #### [facility] [address] [place] [address] Basophils/100 WBC (Bld) 0.6 % Normal . [facility] Comment on above: Performed By: #### C BC #### [facility] [address] Eosinophils (Bld) [#/Vol] 0.2 10*3/uL Normal 0.0-0.45 [facility] Comment on above: Performed By: #### C BC #### [facility] [address] Eosinophils/100 WBC (Bld) 1.9 % Normal . [facility] Comment on above: Performed By: #### C BC #### [address] Erythrocyte distribution width (RBC) [Ratio] 13.0 % Normal 11.9-15.3 [facility] Comment on above: Performed By: #### C BC #### [address] Hematocrit (Bld) [Volume fraction] 40.0 % Normal 34.0-46.4 [facility] Comment on above: Performed By: #### C BC #### [address] Hemoglobin (Bld) [Mass/Vol] 13.6 g/dL Normal 11.8-15.4 [facility] Comment on above: Performed By: #### C BC #### [address] Lymphocytes (Bld) [#/Vol] 2.3 10*3/uL Normal 1.00-4.8 [facility] Comment on above: Performed By: #### C BC #### [address] Lymphocytes/100 WBC (Bld) 28.8 % Normal . [facility] Comment on above: Performed By: #### C BC #### [address] MCH (RBC) [Entitic mass] 30.0 pg Normal 24.7-34.3 [facility] Comment on above: Performed By: #### C BC #### [facility] [address] MCV (RBC) [Entitic vol] 88.1 fL Normal 80-100 [facility] Comment on above: Performed By: #### C BC #### [facility] [address] Mean Corpuscular HGB Conc 34.0 g/dL Normal 32.0-35.0 [facility] Comment on above: Performed By: #### C BC #### [address] Monocytes (Bld) [#/Vol] 0.4 10*3/uL Normal 0.0-0.8 [facility] Comment on above: Performed By: #### C BC #### [address] Monocytes/100 WBC (Bld) 5.1 % Normal . [facility] Comment on above: Performed By: #### C BC #### [address] Neutrophils (Bld) [#/Vol] 5.2 10*3/uL Normal 1.8-7.7 [facility] Comment on above: Performed By: #### C BC #### [address] Neutrophils/100 WBC (Bld) 63.6 % Normal . [facility] Comment on above: Performed By: #### C BC #### [address] NRBC% 0.1 /100{WBC} Normal 0-0.5 [facility] Comment on above: Performed By: #### C BC #### [address] Platelet mean volume (Bld) [Entitic vol] 8.2 fL Normal 6.3-10.7 [facility] Comment on above: Performed By: #### C BC #### [place] [address] [place] Platelets (Bld) [#/Vol] 235 10*3/uL Normal 150-450 [facility] Comment on above: Performed By: #### C BC #### [facility] [address] RBC (Bld) [#/Vol] 4.53 10*6/uL Normal 3.60-5.00 [facility] Comment on above: Performed By: #### C BC #### [facility] [address] WBC (Bld) [#/Vol] 8.1 10*3/uL Normal 3.8-11.6 [facility] Comment on above: Performed By: #### C BC #### [facility] [address] Creatinine [Mass/volume] in Serum or PlasmaOrdered By: Dasha Garcia on 12-15-2022 Creatinine [Mass/Vol] 0.86 mg/dL 0.60-1.20 [facility] Eosinophils Auto (Bld) [#/Vo l]Ordered By: Dasha Garcia on 12-15-2022 Eosinophils (Bld) [#/Vol] 0.2 10*3/uL 0.0-0.45 [facility] Eosinophils/100 WBC Auto (Bl d)Ordered By: Dasha Garcia on 12-15-2022 Eosinophils/100 WBC (Bld) 1.9 % . [facility] Erythrocyte distribution wid th Auto (RBC) [Ratio]Ordered By: Dasha Garcia on 12-15-2022 Erythrocyte distribution width (RBC) [Ratio] 13.0 % 11.9-15.3 [facility] Glucose [Mass/volume] in Ser um or PlasmaOrdered By: Dasha Garcia on 12-15-2022 Glucose [Mass/Vol] 90 mg/dL 70-100 [facility] Comment on above: ADA recommended refe rence rangeRandom Glucose Reference Range is dependent on time and content of last meal. Glucose of more than 200 mg/dL in a nonstressed, ambulatory subject supports the diagnosis of Diabetes Mellitus. Hematocrit Auto (Bld) [Volum e fraction]Ordered By: Dasha Garcia on 12-15-2022 Hematocrit (Bld) [Volume fraction] 40.0 % 34.0-46.4 [facility] Hemoglobin [Mass/volume] in BloodOrdered By: Dasha Garcia on 12-15-2022 Hemoglobin (Bld) [Mass/Vol] 13.6 g/dL 11.8-15.4 [facility] INR in Platelet poor plasma by Coagulation assayOrdered By: Dasha Garcia on 12-15-2022 INR Coag (PPP) [Relative time] 0.9 {INR} [facility] Comment on above: INR Therapeutic Rang [...] RBC Auto (Bld) [#/Vol] 8.1 10*3/uL 3.8-11.6 [facility] Lymphocytes Auto (Bld) [#/Vo l]Ordered By: Dasha Garcia on 12-15-2022 Lymphocytes (Bld) [#/Vol] 2.3 10*3/uL 1.00-4.8 [facility] Lymphocytes/100 WBC Auto (Bl d)Ordered By: Dasha Garcia on 12-15-2022 Lymphocytes/100 WBC (Bld) 28.8 % . [facility] MCH Auto (RBC) [Entitic mass ]Ordered By: Dasha Garcia on 12-15-2022 MCH (RBC) [Entitic mass] 30.0 pg 24.7-34.3 [facility] MCHC Auto (RBC) [Mass/Vol]Or dered By: Dasha Garcia on 12-15-2022 MCHC (RBC) [Mass/Vol] 34.0 g/dL 32.0-35.0 [facility] MCV Auto (RBC) [Entitic vol] Ordered By: Dasha Garcia on 12-15-2022 MCV (RBC) [Entitic vol] 88.1 fL 80-100 [facility] Monocytes Auto (Bld) [#/Vol] Ordered By: Dasha Garcia on 12-15-2022 Monocytes (Bld) [#/Vol] 0.4 10*3/uL 0.0-0.8 [facility] Monocytes/100 WBC Auto (Bld) Ordered By: Dasha Garcia on 12-15-2022 Monocytes/100 WBC (Bld) 5.1 % . [facility] Neutrophils Auto (Bld) [#/Vo l]Ordered By: Dasha Garcia on 12-15-2022 Neutrophils (Bld) [#/Vol] 5.2 10*3/uL 1.8-7.7 [facility] Neutrophils/100 WBC Auto (Bl d)Ordered By: Dasha Garcia on 12-15-2022 Neutrophils/100 WBC (Bld) 63.6 % . [facility] No Panel InformationOrdered By: Dasha Garcia on 12-15-2022 Estimated GFR (CKD-EPI) > 60.0 mL/Min [facility] Creatinine Clearance (Chem N/A [facility] Nucleated erythrocytes [Pres ence] in Blood by Automated countOrdered By: Dasha Garcia on 12-15-2022 Nucleated RBC Auto Ql (Bld) 0.1 /100{WBC} 0-0.5 [facility] PST Type and Screenon 2022 ABO and Rh group Nom (Bld) Blood group A Rh(D) positive Normal [facility] Comment on above: Order Comment: Date of Surgery: 20221229 Partial Thromboplastin Timeo n 12-15-2022 aPTT Coag (Bld) [Time] 28.2 s Normal 25.1-36.5 [facility] Comment on above: Result Comment: A he matocrit value greater than 55% may lead to inaccurate results in coagulation testing. Patients having hematocrit values >55% require a special collection tube for coagulation studies. Please contact the laboratory at [phone] for redraw instructions. PERFORMED BY: [place] [id number] PATHOLOGIST FRONT OFFICE ASSISTANT OLIMPIA MORA M.D. Performed By: #### P T, PTT #### [facility] [address] [place], [place] [id number] [facility] Platelet mean volume Auto (B ld) [Entitic vol]Ordered By: Dasha Garcia on 12-15-2022 Platelet mean volume (Bld) [Entitic vol] 8.2 fL 6.3-10.7 [facility] Platelets Auto (Bld) [#/Vol] Ordered By: Dasha Garcia on 12-15-2022 Platelets (Bld) [#/Vol] 235 10*3/uL 150-450 [facility] Potassium [Moles/volume] in Serum or PlasmaOrdered By: Dasha Garcia on 12-15-2022 Potassium [Moles/Vol] 4.1 mmol/L 3.5-5.1 [facility] Prothrombin Time INRon 12-15 INR Coag (PPP) [Relative time] 0.9 {INR} Normal [facility] Comment on above: Result Comment: INR [...] Performed By: #### P T, PTT #### [facility] [address] [place], [place] [id number] [facility] PT Coag (PPP) [Time] 11.3 s Normal 9.0-12.9 [facility] Comment on above: Result Comment: A he matocrit value greater than 55% may lead to inaccurate results in coagulation testing. Patients having hematocrit values >55% require a special collection tube for coagulation studies. Please contact the laboratory at [phone] for redraw instructions. Performed By: #### P T, PTT #### [facility] [address] [place], [place] [id number] [facility] Prothrombin time (PT)Ordered By: Dasha Garcia on 12-15-2022 PT Coag (PPP) [Time] 11.3 s 9.0-12.9 [facility] Comment on above: A hematocrit value g reater than 55% may lead to inaccurate results in coagulation testing. Patients having hematocrit values >55% require a special collection tube for coagulation studies. Please contact the laboratory at [phone] for redraw instructions. RBC Auto (Bld) [#/Vol]Ordere d By: Dasha Garcia on 12-15-2022 RBC (Bld) [#/Vol] 4.53 10*6/uL 3.60-5.00 [facility] Serum or plasma anion gap de terminationOrdered By: Dasha Garcia on 12-15-2022 Anion gap [Moles/Vol] 8.5 mmol/L 6.0-15.0 [facility] Sodium [Moles/volume] in Ser um or PlasmaOrdered By: Dasha Garcia on 12-15-2022 Sodium [Moles/Vol] 138 mmol/L 136-145 [facility] Urea nitrogen [Mass/volume] in Serum or PlasmaOrdered By: Dasha Garcia on 12-15-2022 Urea nitrogen [Mass/Vol] 9 mg/dL 7-25 [facility] WBC Auto (Bld) [#/Vol]Ordere d By: Dasha Garcia on 12-15-2022 WBC (Bld) [#/Vol] 8.1 10*3/uL 3.8-11.6 [facility] 36on 10-24-2022 36 It is still connecti ng and sensing well, reviewed her loop. Likely breast tissue inhibiting being able to feel. For now we will ct monitor , since device is sensing ECG well it does not seem to be migrated. If she is concerned we can order a CXR just to confirm placement I am ok with that Normal [facility] Follow-Upon 09-10-2022 Follow-Up [id number] Ada Kirkland 1990 F Date Provider Department Center 09/10/2022 Danilo6-ELANA RAMIREZ CARD [facility] Family History Problem Relation Age of Onset Heart attack Father 44 Coronary artery disease Father Clotting disorder Father Family Status - Relation Status Age at Father Alive Level of Service:49112 IN OFFICE/OUTPATIENT ESTABLISHED MOD MDM 30-39 MIN Reason for Visit and Comments: Dizziness [300658] - Lightheaded and dizziness for a few weeks. Did stop last shiv. Is not as bad. Comes and goes- Wondering if she might have POTS. Family members has POTS. Has LOOP monitor in currently Normal [facility] Office Visiton 08-29-2022 Follow-up visit [id number] Ada Kirkland 1990 F Date Provider Department Center 08/29/2022 [id number] GRIFFIN CARD [facility] Family History Problem Relation Age of Onset Heart attack Father 44 Coronary artery disease Father Clotting disorder Father Family Status - Relation Status Age at Father Alive Level of Service:50677 IN POSTOP FOLLOW UP VISIT RELATED TO ORIGINAL PX Normal [facility] HPon 08-21-2022 [facility] Electrophysiology Consult Note Reason for [...] joint swell (more content not included)... Normal [facility] CALCULI, URINARYon 3 2,8 Dihydroxyadenine Normal [facility] Comment on above: Performed By: #### C ALCULI #### [facility] [address] [place] [address] Dr. Lela Okeefe Ammonium Acid Urate Normal [facility] Comment on above: Performed By: #### C ALCULI #### [facility] [address] [address] [address] Lela Okeefe Bilirubin Ql (U) Normal [facility] Comment on above: Performed By: #### C ALCULI #### [facility] [address] [address] [address] Lela Okeefe Ca Oxalate Dihydrate 60 % Normal [facility] Comment on above: Performed By: #### C ALCULI #### [facility] [address] [address] [address] Lela Okeefe CaHPO4 (Brushite) Normal [facility] Comment on above: Performed By: #### C ALCULI #### [facility] [address] [address] [address] Lela Okeefe Calcium Bilirubinate Normal [facility] Comment on above: Performed By: #### C ALCULI #### [facility] [address] [address] [address] Lela Okeefe Calcium Carbonate [facility] Comment on above: Performed By: #### C ALCULI #### [facility] [address] [address] [address] Lela Okeefe Calcium Oxalate Monohydrate 30 % [facility] Comment on above: Performed By: #### C ALCULI #### [facility] [address] [address] [address] Lela Okeefe Calcium Palmitate [facility] Comment on above: Performed By: #### C ALCULI #### [facility] [address] [address] [address] Lela Okeefe Calcium Phosphate [facility] Comment on above: Performed By: #### C ALCULI #### [facility] [address] [address] [address] Lela Okeefe Calcium Stearate [facility] Comment on above: Performed By: #### C ALCULI #### [facility] [address] [address] [address] Lela Okeefe Carbonate Apatite [facility] Comment on above: Performed By: #### C ALCULI #### [facility] [address] [address] [address] Lela Okeefe Cellular Material [facility] Comment on above: Performed By: #### C ALCULI #### [facility] [address] [address] [address] Lela Okeefe Cholesterol [facility] Comment on above: Performed By: #### C ALCULI #### [facility] [address] [address] [address] Lela Okeefe Color (U) Conroy [facility] Comment on above: Performed By: #### C ALCULI #### [facility] [address] [address] [address] Lela Okeefe Comment Comment Normal [facility] Comment on above: Result Comment: Calc ium phosphate (hydroxyl form) includes hydroxyapatite, amorphous calcium phosphate, and whitlockite. Hydroxyapatite is the most common of the calcium phosphate salts found in human kidney stones. Performed By: #### C ALCULI #### [facility] [address] [address] [address] Lela Okeefe Result Comment: Calc ulus received wet. Wet calculi must be dried before analysis, which delays reporting of results. Leaving calculi wet (such as water, saline, blood, urine) may lead to changes in composition. Comment: Comment Normal [facility] Comment on above: Result Comment: Renita quintanilla questions regarding Calculi Analysis contact [employer] at: [phone]. Performed By: #### C ALCULI #### [facility] [address] [place] [address] Dr. Lela Okeefe Composition Comment Normal [facility] Comment on above: Result Comment: Perc entage (Represents the % composition) Performed By: #### C ALCULI #### [facility] [address] [address] [address] Lela Okeefe Cystine Normal [facility] Comment on above: Performed By: #### C ALCULI #### [facility] [address] [place] [address] Dr. Lela Okeefe Disclaimer: Comment Normal [facility] Comment on above: Result Comment: This test was developed and its performance characteristics determined by [employer]. It has not been cleared or approved by the Food and Drug Administration. Performed By: #### C ALCULI #### [facility] [address] [address] [address] Lela Okeefe Dried Blood Normal [facility] Comment on above: Performed By: #### C ALCULI #### [facility] [address] [place] [address] Dr. Lela Okeefe Drug or Metabolite Normal [facility] Comment on above: Performed By: #### C ALCULI #### [facility] [address] [place] [address] Dr. Lela Okeefe Hydroxyapatite 10 % Normal [facility] Comment on above: Performed By: #### C ALCULI #### [facility] [address] [address] [address] Lela Okeefe Mg NH4 PO4 (Struvite) [facility] Comment on above: Performed By: #### C ALCULI #### [facility] [address] [address] [address] Lela Okeefe MgHPO4 (Newberyite) [facility] Comment on above: Performed By: #### C ALCULI #### [facility] [address] [address] [address] Lela Okeefe Other component(s) [facility] Comment on above: Performed By: #### C ALCULI #### [facility] [address] [address] [address] Lela Okeefe PDF . [facility] Comment on above: Performed By: #### C ALCULI #### [facility] [address] [place] [address] Dr. Lela Okeefe Photo Comment [facility] Comment on above: Result Comment: Phot ograph will follow under a separate cover Performed By: #### C ALCULI #### [facility] [address] [place] [address] Dr. Lela Okeefe Please note: Comment [facility] Comment on above: Result Comment: Calc mirza report will follow via computer, mail or oral hygienist delivery. Performed By: #### C ALCULI #### [facility] [address] [address] [address] Lela Okeefe Size 5x5 [facility] Comment on above: Result Comment: Sing le piece received. Performed By: #### C ALCULI #### [facility] [address] [address] [address] Lela Okeefe Sodium Acid Urate [facility] Comment on above: Performed By: #### C ALCULI #### [facility] [address] [address] [address] Lela Okeefe Source Comment [facility] Comment on above: Result Comment: Righ t Ureter Performed By: #### C ALCULI #### [facility] [address] [address] [address] Lela Okeefe Triamterene [facility] Comment on above: Performed By: #### C ALCULI #### [facility] [address] [place] [address] Dr. Lela Okeefe Uric Acid [facility] Comment on above: Performed By: #### C ALCULI #### [facility] [address] [address] [address] Lela Okeefe Uric Acid Dihydrate [facility] Comment on above: Performed By: #### C ALCULI #### [facility] [address] [address] [address] Lela Okeefe Weight 37 mg [facility] Comment on above: Performed By: #### C ALCULI #### [facility] [address] [place] [address] Dr. Lela Okeefe Xanthine [facility] Comment on above: Performed By: #### C ALCULI #### [facility] [address] [place] [address] Dr. Lela Okeefe Consultation Noteon 07-19-19 23 Consultation Note [id number]:127 Normal [facility] Consultation Note [id number]:127 Normal [facility] Operative Reporton Operative Report [id number]:127 Normal [facility] PREG HCG QUALon 07-17-2022 , QUAL Negative Normal NEGATIVE [facility] Comment on above: Performed By: #### C BC #### [facility] [address] [place] [address] Dr. Lela Okeefe Documentationon 07-16-2022 Documentation [id number] Ada Kirkland 1990 F Date Provider Department Center 07/16/2022 Joel-BARAZI, ELANA MC CARD [facility] Family History Problem Relation Age of Onset Heart attack Father 44 Coronary artery disease Father Clotting disorder Father Family Status - Relation Status Age at Father Alive Normal [facility] Reportson 07-15-2022 Lab Reports [id number]:127 Normal [facility] Office Visiton 07-15-2022 Follow-up visit [id number] Ada Kirkland 1990 F Date Provider Department Center 07/15/2022 OG ERVIN [facility] Family History Problem Relation Age of Onset Heart attack Father 44 Coronary artery disease Father Clotting disorder Father Family Status - Relation Status Age at Father Alive Level of Service:48822 IN OFFICE/OUTPATIENT ESTABLISHED MOD MDM 30-39 MIN Normal [facility] CBC AUTO DIFFon 07-11-2022 BASO # 0.0 103/ul Normal 0.0-0.1 [facility] Comment on above: Performed By: #### C BC #### [facility] [address] [place] [address] Dr. Lela Okeefe Basophils/100 WBC (Bld) 0.5 % Normal 0.2-2.0 [facility] Comment on above: Performed By: #### C BC #### [facility] [address] [place] [address] Dr. Lela Okeefe EO # 0.1 103/ul Normal 0.0-0.7 [facility] Comment on above: Performed By: #### C BC #### [facility] [address] [place] [address] Dr. Lela Okeefe Eosinophils/100 WBC (Bld) 1.2 % Normal 0.9-7.0 [facility] Comment on above: Performed By: #### C BC #### [facility] [address] [place] [address] Dr. Lela Okeefe Erythrocyte distribution width (RBC) [Ratio] 12.3 % Normal 11.0-15.0 [facility] Comment on above: Performed By: #### C BC #### [facility] [address] [place] [address] Dr. Lela Okeefe Hematocrit (Bld) [Volume fraction] 41.7 % Normal 36.0-48.0 [facility] Comment on above: Performed By: #### C BC #### [facility] [address] [place] [address] Dr. Lela Okeefe Hemoglobin (Bld) [Mass/Vol] 14.1 g/dL Normal 12.0-16.0 [facility] Comment on above: Performed By: #### C BC #### [facility] [address] [place] [address] Dr. Lela Okeefe IG # 0.01 10e3/ul Normal 0.00-0.03 [facility] Comment on above: Performed By: #### C BC #### [facility] [address] [place] [address] Dr. Lela Okeefe IG % 0.2 % Normal 0.0-0.5 [facility] Comment on above: Performed By: #### C BC #### [facility] [address] [place] [address] Dr. Lela Okeefe LYMPH # 2.1 103/ul Normal 1.2-3.8 [facility] Comment on above: Performed By: #### C BC #### [facility] [address] [place] [address] Dr. Lela Okeefe Lymphocytes/100 WBC (Bld) 36.5 % Normal 20.5-60.0 [facility] Comment on above: Performed By: #### C BC #### [facility] [address] [place] [address] Dr. Lela Okeefe MANUAL DIFF REQ NO Normal [facility] Comment on above: Performed By: #### C BC #### [facility] [address] [place] [address] Dr. Lela Okeefe MCH (RBC) [Entitic mass] 30.2 pg Normal 26.7-34.0 [facility] Comment on above: Performed By: #### C BC #### [facility] [address] [place] [address] Dr. Lela Okeefe MCHC (RBC) [Mass/Vol] 33.8 g/dL Normal 29.9-35.2 [facility] Comment on above: Performed By: #### C BC #### [facility] [address] [place] [address] Dr. Lela Okeefe MCV (RBC) [Entitic vol] 89.3 fL Normal 81.0-99.0 [facility] Comment on above: Performed By: #### C BC #### [facility] [address] [place] [address] Dr. Lela Okeefe MONO # 0.5 103/ul Normal 0.3-0.8 [facility] Comment on above: Performed By: #### C BC #### [facility] [address] [place] [address] Dr. Lela Okeefe Monocytes/100 WBC (Bld) 8.4 % Normal 1.7-12.0 [facility] Comment on above: Performed By: #### C BC #### [facility] [address] [place] [address] Dr. Lela Okeefe NEUT # 3.0 103/ul Normal 1.4-6.5 [facility] Comment on above: Performed By: #### C BC #### [facility] [address] [place] [address] Dr. Lela Okeefe Neutrophils/100 WBC (Bld) 53.2 % Normal 43.0-75.0 [facility] Comment on above: Performed By: #### C BC #### [facility] [address] [place] [address] Dr. Lela Okeefe Platelet mean volume (Bld) [Entitic vol] 9.7 fL Normal 9.5-13.5 [facility] Comment on above: Performed By: #### C BC #### [facility] [address] [place] [address] Dr. Lela Okeefe PLT 234 103/ul Normal 150-450 [facility] Comment on above: Performed By: #### C BC #### [facility] [address] [place] [address] Dr. Lela Okeefe RBC 4.67 106/ul Normal 4.20-5.40 [facility] Comment on above: Performed By: #### C BC #### [facility] [address] [place] [address] Dr. Lela Okeefe WBC 5.6 103/ul Normal 4.0-11.0 [facility] Comment on above: Performed By: #### C BC #### [facility] [address] [place] [address] Dr. Lela Okeefe PROF CHEM 8 (BAS METB)on Anion gap [Moles/Vol] 12.5 mmol/L Normal Th [facility] Comment on above: Performed By: #### C BC #### [facility] [address] [place] [address] Dr. Lela Okeefe Calcium [Mass/Vol] 9.1 mg/dL Normal 8.5-10.1 [facility] Comment on above: Performed By: #### C BC #### [facility] [address] [place] [address] Dr. Lela Okeefe Chloride [Moles/Vol] 105 mmol/L Normal 98-107 [facility] Comment on above: Performed By: #### C BC #### [facility] [address] [place] [address] Dr. Lela Okeefe CO2 [Moles/Vol] 28.7 mmol/L Normal 21.0-32.0 [facility] Comment on above: Performed By: #### C BC #### [facility] [address] [place] [address] Dr. Lela Okeefe Creatinine [Mass/Vol] 0.73 mg/dL Normal 0.55-1.02 [facility] Comment on above: Performed By: #### C BC #### [facility] [address] [place] [address] Dr. Lela Okeefe EGFR-AF IRISH >60 Normal >=60 [facility] Comment on above: Performed By: #### C BC #### [facility] [address] [place] [address] Dr. Lela Okeefe EGFR-NON AF IRISH >60 Normal >=60 [facility] Comment on above: Performed By: #### C BC #### [facility] [address] [address] [address] Lela Okeefe Glucose [Mass/Vol] 81 mg/dL Normal 74-106 [facility] Comment on above: Performed By: #### C BC #### [facility] [address] [address] [address] Lela Okeefe Potassium [Moles/Vol] 4.2 mmol/L Normal 3.5-5.1 [facility] Comment on above: Performed By: #### C BC #### [facility] [address] [address] [address] Lela Okeefe Sodium [Moles/Vol] 142 mmol/L Normal 136-145 [facility] Comment on above: Performed By: #### C BC #### [facility] [address] [place] [address] Dr. Lela Okeefe Urea nitrogen [Mass/Vol] 11.0 mg/dL Normal 7.0-18.0 [facility] Comment on above: Performed By: #### C BC #### [facility] [address] [place] [address] Dr. Lela Okeefe Urea nitrogen/Creatinine [Mass ratio] 15.1 mg/mg Normal [facility] Comment on above: Performed By: #### C BC #### [facility] [address] [place] [address] Dr. Lela Okeefe PROTIMEon 07-11-2022 INR Coag (PPP) [Relative time] 0.97 {INR} Normal [facility] Comment on above: Performed By: #### C BC #### [facility] [address] [place] [address] Dr. Lela Okeefe INR GUIDELINES SEE BELOW Normal [facility] Comment on above: Result Comment: BAIRON RED INR: 2.0 - 3.0 CONDITIONS NOT LISTED BELOW 2.5 - 3.5 FOR PROSTHETIC HEART VALVE REPLACEMENT 2.5 - 3.5 RECURRENT THROMBOSIS Performed By: #### C BC #### [facility] [address] [place] [address] Dr. Lela Okeefe PT Coag (PPP) [Time] 10.3 s Normal 9.0-11.6 [facility] Comment on above: Performed By: #### C BC #### [facility] [address], [place] [address] Dr. Lela Okeefe PTTon 07-11-2022 aPTT Coag (Bld) [Time] 27.9 s Normal 22.3-36.2 Th e [facility] Comment on above: Performed By: #### C BC #### [facility] [address] [place], [place] [address] Dr. Lela Okeefe Consent for Procedure/Surger yon 07-01-2022 Consent for Procedure/Surgery [id number]:127 Normal [facility] Pre-Certification Formon Pre-Certification Form [id number]:127 Normal [facility] RAD - CT Reporton 06-30-2022 RAD - CT Report [id number]:127 [address] [facility] CT ABD/PELVIS WO CONon 06-02 CT ABD/PELVIS [...] by: IRIS FUNEZ Date: 2022-06-02 15:16 Normal [facility] RAD - MISCon 05-23-2022 [facility] [id number]:127 Normal [facility] [id number]:127 Normal [facility] XR KUB 1 VIEWon 05-20-2022 XR KUB [...] by: ZAHRA MCCLENDON Date: 2022-05-20 14:39 Normal [facility] Ambulatory Visit Summaryon 0 05-19-2022 Ambulatory Visit Summary MORGAN KIRKLAND :1990 Visit Date:05/19/2022 Ambulatory Visit Instructions Your Diagnosis History of kidney stones Urinary frequency Urinary urgency Left sided abdominal pain Recurrent UTI Tests Performed Urnls Dip Stick Auto w/o Microscopy POC 89430 XR Abdomen 1 View -- Results Pending [...] Leiva When: Where: [facility] [address] [place] [address]- Medications What When Instructions Unchanged metoprolol (Lopressor 25 mg oral tablet) Contact prescribing physician if questions or concerns Test Results Urnls Dip Stick Auto w/o Microscopy POC 86756 (05/19/2022) Bilirubin Urine Dipstick - Negative Blood Urine Dipstick - Negative Glucose Urine Dipstick - Negative Ketones Urine Dipstick - Negative Leukocytes Urine Dipstick - Trace Nitrite Urine Dipstick - Negative Protein Urine Dipstick - Negative Specific [place] Urine Dipstick - <=1.005 Urine Appearance Urine [...] 2 days (more content not included)... Normal [facility] Patient Educationon 05-20-19 Patient Education Urology Dietary [...] Rhubarb. ? Beets. ? Potato chips and [place] fries. ? Nuts. ? If you regularly take a diuretic medicine, make sure to eat at least 1?2 fruits or vegetables high in potassium each day. These include: ? Avocado. ? Banana. ? [place], prune, carrot, or tomato juice. ? Baked [...] zuñiga (more content not included)... Normal [facility] Urology Office/Clinic Noteon 05-19-2022 Urology Office/Clinic Note [...] [facility] [address], [place] [address]- Additional Instructions: f/u after KUB Patient Education [...] mRNA-[id number] vac (more content not included)... Normal [facility] Comment on above: Result Comment: Elec tronically Signed By: Clark CLEMENS MD\.br\Date and Time Signed: 05/19/22 10:52 EST\.br\Electronically Co-Signed By: Mary Jane Sawyer\.br\Date and Time Co-Signed: 05/19/22 10:49 EST Office Visiton 04-29-2022 Follow-up visit [id number] Ada Kirkland 1990 F Date Provider Department [facility] Family History Problem Relation Age of Onset Heart attack Father 44 Coronary artery disease Father Clotting disorder Father Family Status - Relation Status Age at Father Alive Level of Service:86993 IN OFFICE/OUTPATIENT NEW MODERATE MDM 45-59 MINUTES (GC) Normal [facility] C3 and C4 COMPLEMENTon 04-15 Complement C3, Serum 191 mg/dL Critically high 82-167 [facility] Comment on above: Performed By: #### C BC #### [facility] [address] [address] [address] Lela Okeefe Complement C4, Serum 38 mg/dL Normal 12-38 [facility] Comment on above: Performed By: #### C BC #### [facility] [address] [address] [address] Llea Okeefe Orders Onlyon 04-15-2022 Orders Only [id number] dAa Kirkland Phillip 1990 F Date Provider Department Center 04/15/2022 ELANA MORALES [facility] Family History Problem Relation Age of Onset Heart attack Father 44 Coronary artery disease Father Clotting disorder Father Family Status - Relation Status Age at Father Alive Normal [facility] T3, TOTAL (TRIIODOTHYRONINE) on 04-13-2022 T3, TOTAL 109 ng/dL Normal 71-180 [facility] Comment on above: Performed By: #### C BC #### [facility] [id number] Lela Okeefe US THYROIDon 04-13-2022 US [...] ZAHRA MCCLENDON Date: 2022-04-13 20:29 Normal [facility] CBC AUTO DIFFon 04-12-2022 BASO # 0.1 103/ul Normal 0.0-0.1 [facility] Comment on above: Performed By: #### C BC #### [facility] [id number] Lela Okeefe Basophils/100 WBC (Bld) 0.6 % Normal 0.2-2.0 [facility] Comment on above: Performed By: #### C BC #### [facility] [address] [place] [address] Dr. Lela Okeefe EO # 0.0 103/ul Normal 0.0-0.7 [facility] Comment on above: Performed By: #### C BC #### [facility] [address] [place] [address] Dr. Lela Okeefe Eosinophils/100 WBC (Bld) 0.4 % Critically low 0.9-7.0 [facility] Comment on above: Performed By: #### C BC #### [facility] [address] [place] [address] Dr. Lela Okeefe Erythrocyte distribution width (RBC) [Ratio] 11.9 % Normal 11.0-15.0 [facility] Comment on above: Performed By: #### C BC #### [facility] [address] [place] [address] Dr. Lela Okeefe Hematocrit (Bld) [Volume fraction] 41.1 % Normal 36.0-48.0 [facility] Comment on above: Performed By: #### C BC #### [facility] [address] [place] [address] Dr. Lela Okeefe Hemoglobin (Bld) [Mass/Vol] 14.9 g/dL Normal 12.0-16.0 [facility] Comment on above: Performed By: #### C BC #### [facility] [address] [place] [address] Dr. Lela Okeefe IG # 0.03 10e3/ul Normal 0.00-0.03 [facility] Comment on above: Performed By: #### C BC #### [facility] [address] [place] [address] Dr. Lela Okeefe IG % 0.3 % Normal 0.0-0.5 [facility] Comment on above: Performed By: #### C BC #### [facility] [address] [place] [address] Dr. Lela Okeefe LYMPH # 1.1 103/ul Critically low 1.2-3.8 The [facility] Comment on above: Performed By: #### C BC #### [facility] [address] [place] [address] Dr. Lela Okeefe Lymphocytes/100 WBC (Bld) 12.6 % Critically low 20.5-60.0 [facility] Comment on above: Performed By: #### C BC #### [facility] [address] [place] [address] Dr. Lela Okeefe MANUAL DIFF REQ NO Normal [facility] Comment on above: Performed By: #### C BC #### [facility] [address] [place] [address] Dr. Lela Okeefe MCH (RBC) [Entitic mass] 29.6 pg Normal 26.7-34.0 [facility] Comment on above: Performed By: #### C BC #### [facility] [address] [place] [address] Dr. Lela Okeefe MCHC (RBC) [Mass/Vol] 36.3 g/dL Critically high 29.9-35.2 [facility] Comment on above: Performed By: #### C BC #### [facility] [address] [place] [address] Dr. Lela Okeefe MCV (RBC) [Entitic vol] 81.7 fL Normal 81.0-99.0 [facility] Comment on above: Performed By: #### C BC #### [facility] [address] [place] [address] Dr. Lela Okeefe MONO # 0.9 103/ul Critically high 0.3-0.8 [facility] Comment on above: Performed By: #### C BC #### [facility] [address] [place] [address] Dr. Lela Okeefe Monocytes/100 WBC (Bld) 10.0 % Normal 1.7-12.0 [facility] Comment on above: Performed By: #### C BC #### [facility] [address] [place] [address] Dr. Lela Okeefe NEUT # 6.8 103/ul Critically high 1.4-6.5 [facility] Comment on above: Performed By: #### C BC #### [facility] [address] [place] [address] Dr. Lela Okeefe Neutrophils/100 WBC (Bld) 76.1 % Critically high 43.0-75.0 [facility] Comment on above: Performed By: #### C BC #### [facility] [address] [place] [address] Dr. Lela Okeefe Platelet mean volume (Bld) [Entitic vol] 9.5 fL Normal 9.5-13.5 [facility] Comment on above: Performed By: #### C BC #### [facility] [address] [place] [address] Dr. Lela Okeefe PLT 232 103/ul Normal 150-450 [facility] Comment on above: Performed By: #### C BC #### [facility] [address] [place] [address] Dr. Lela Okeefe RBC 5.03 106/ul Normal 4.20-5.40 [facility] Comment on above: Performed By: #### C BC #### [facility] [address] [place] [address] Dr. Lela Okeefe WBC 9.0 103/ul Normal 4.0-11.0 [facility] Comment on above: Performed By: #### C BC #### [facility] [address] [place] [address] Dr. Lela Okeefe CPKon 04-12-2022 CK [Catalytic activity/Vol] 43 U/L Normal 26-192 [facility] Comment on above: Performed By: #### C BC #### [facility] [address] [place] [address] Dr. Lela Okeefe CREATININEon 04-12-2022 Creatinine [Mass/Vol] 0.85 mg/dL Normal 0.55-1.02 [facility] Comment on above: Performed By: #### C BC #### [facility] [address] [place] [address] Dr. Lela Okeefe EGFR-AF IRISH >60 Normal >=60 [facility] Comment on above: Performed By: #### C BC #### [facility] [address] [address] [address] Lela Okeefe EGFR-NON AF IRISH >60 Normal >=60 [facility] Comment on above: Performed By: #### C BC #### [facility] [address] [place] [address] Dr. Lela Okeefe SED RATE WESTERGRENon 2022 SED RATE 53 mm/hr Critically high <=20 [facility] Comment on above: Performed By: #### C BC #### [facility] [address] [place] [address] Dr. Lela Okeefe UA RANDOM W/MICROSCOPICon BACTERIA NONE SEEN Normal NONE SEEN [facility] Comment on above: Performed By: #### U AMIC #### [facility] [address] [place] [address] Dr. Lela Okeefe Bilirubin Ql (U) Negative Normal NEGATIVE [facility] Comment on above: Performed By: #### U AMIC #### [facility] [address] [place] [address] Dr. Lela Okeefe CAST NONE SEEN Normal NONE SEEN [facility] Comment on above: Performed By: #### U AMIC #### [facility] [address] [place] [address] Dr. Lela Okeefe Clarity (U) CLEAR Normal CLEAR [facility] Comment on above: Performed By: #### U AMIC #### [facility] [address] [place] [address] Dr. Lela Okeefe Color (U) YELLOW Normal YELLOW [facility] Comment on above: Performed By: #### U AMIC #### [facility] [address] [place] [address] Dr. Lela Okeefe Crystals LM Nom (Urine sed) NONE SEEN Normal NONE SEEN [facility] Comment on above: Performed By: #### U AMIC #### [facility] [address] [place] [address] Dr. Lela Okeefe Epithelial cells LM Ql (Urine sed) FEW Abnormal NONE SEEN /RARE [facility] Comment on above: Performed By: #### U AMIC #### [facility] [address] [address] [address] Lela Okeefe Glucose Ql (U) Negative Normal NEGATIVE [facility] Comment on above: Performed By: #### U AMIC #### [facility] [address] [address] [address] Lela Okeefe Hemoglobin Ql (U) Negative Normal NEGATIVE [facility] Comment on above: Performed By: #### U AMIC #### [facility] [address] [address] [address] Lela Okeefe Ketones Ql (U) Negative Normal NEGATIVE [facility] Comment on above: Performed By: #### U AMIC #### [facility] [address] [address] [address] Lela Okeefe LEUKOCYTES Negative Normal NEGATIVE [facility] Comment on above: Performed By: #### U AMIC #### [facility] [address] [place] [address] Dr. Lela Okeefe MUCOUS TRACE Abnormal NONE SEEN [facility] Comment on above: Performed By: #### U AMIC #### [facility] [address] [place] [address] Dr. Lela Okeefe Nitrite Ql (U) Negative Normal NEGATIVE [facility] Comment on above: Performed By: #### U AMIC #### [facility] [address] [place] [address] Dr. Lela Okeefe pH (U) 6.0 [pH] Normal 5-9 [facility] Comment on above: Performed By: #### U AMIC #### [facility] [address] [place] [address] Dr. Lela Okeefe RBC 0-2 Normal 0-2 [facility] Comment on above: Performed By: #### U AMIC #### [facility] [address] [place] [address] Dr. Lela Okeeef SPEC GRAVITY 1.020 Normal 1.005-<=1. 025 [facility] Comment on above: Performed By: #### U AMIC #### [facility] [address] [place] [address] Dr. Lela Okeefe UA PROTEIN Negative Normal NEGATIVE/ TRACE [facility] Comment on above: Performed By: #### U AMIC #### [facility] [address] [place] [address] Dr. Lela Okeefe Urobilinogen Qn (U) 0.2 {Fidelia'U}/dL Normal 0.2 - 1. 0 [facility] Comment on above: Performed By: #### U AMIC #### [facility] [address] [place] [address] Dr. Lela Okeefe WBC NONE SEEN Normal NONE SEEN [facility] Comment on above: Performed By: #### U AMIC #### [facility] [address] [place] [address] Dr. Lela Okeefe 36on 04-10-2022 36 Not at the moment bu t I will discuss her monitor results with dr. Barone to see if there is anything he may recommend before then Normal [facility] CBC AUTO DIFFon 04-10-2022 BASO # 0.0 103/ul Normal 0.0-0.1 [facility] Comment on above: Performed By: #### C BC #### [facility] [address] [place] [address] Dr. Lela Okeefe Basophils/100 WBC (Bld) 0.3 % Normal 0.2-2.0 [facility] Comment on above: Performed By: #### C BC #### [facility] [address] [place] [address] Dr. Lela Okeefe EO # 0.0 103/ul Normal 0.0-0.7 [facility] Comment on above: Performed By: #### C BC #### [facility] [address] [place] [address] Dr. Lela Okeefe Eosinophils/100 WBC (Bld) 0.1 % Critically low 0.9-7.0 [facility] Comment on above: Performed By: #### C BC #### [facility] [address] [place] [address] Dr. Lela Okeefe Erythrocyte distribution width (RBC) [Ratio] 11.9 % Normal 11.0-15.0 [facility] Comment on above: Performed By: #### C BC #### [facility] [address] [place] [address] Dr. Lela Okeefe Hematocrit (Bld) [Volume fraction] 46.1 % Normal 36.0-48.0 [facility] Comment on above: Performed By: #### C BC #### [facility] [address] [place] [address] Dr. Lela Okeefe Hemoglobin (Bld) [Mass/Vol] 14.5 g/dL Normal 12.0-16.0 [facility] Comment on above: Performed By: #### C BC #### [facility] [address] [place] [address] Dr. Lela Okeefe IG # 0.01 10e3/ul Normal 0.00-0.03 [facility] Comment on above: Performed By: #### C BC #### [facility] [address] [place] [address] Dr. Lela Okeefe IG % 0.1 % Normal 0.0-0.5 [facility] Comment on above: Performed By: #### C BC #### [facility] [address] [place] [address] Dr. Lela Okeefe LYMPH # 1.1 103/ul Critically low 1.2-3.8 [facility] Comment on above: Performed By: #### C BC #### [facility] [address] [place] [address] Dr. Lela Okeefe Lymphocytes/100 WBC (Bld) 11.7 % Critically low 20.5-60.0 [facility] Comment on above: Performed By: #### C BC #### [facility] [address] [place] [address] Dr. Lela Okeefe MANUAL DIFF REQ NO Normal [facility] Comment on above: Performed By: #### C BC #### [facility] [address] [place] [address] Dr. Lela Okeefe MCH (RBC) [Entitic mass] 29.8 pg Normal 26.7-34.0 [facility] Comment on above: Performed By: #### C BC #### [facility] [address] [place], [place] [id number] Dr. Lela Okeefe MCHC (RBC) [Mass/Vol] 31.5 g/dL Normal 29.9-35.2 [facility] Comment on above: Performed By: #### C BC #### [facility] [address] [place] [address] Dr. Lela Okeefe MCV (RBC) [Entitic vol] 94.7 fL Normal 81.0-99.0 [facility] Comment on above: Performed By: #### C BC #### [facility] [address] [place] [address] Dr. eLla Okeefe MONO # 0.8 103/ul Normal 0.3-0.8 [facility] Comment on above: Performed By: #### C BC #### [facility] [address] [place] [address] Dr. Lela Okeefe Monocytes/100 WBC (Bld) 7.9 % Normal 1.7-12.0 [facility] Comment on above: Performed By: #### C BC #### [facility] [address] [place] [address] Dr. Lela Okeefe NEUT # 7.7 103/ul Critically high 1.4-6.5 [facility] Comment on above: Performed By: #### C BC #### [facility] [address] [place] [address] Dr. Lela Okeefe Neutrophils/100 WBC (Bld) 79.9 % Critically high 43.0-75.0 [facility] Comment on above: Performed By: #### C BC #### [facility] [address] [place] [address] Dr. Lela Okeefe Platelet mean volume (Bld) [Entitic vol] 10.2 fL Normal 9.5-13.5 [facility] Comment on above: Performed By: #### C BC #### [facility] [address] [place] [address] Dr. Lela Okeefe PLT 230 103/ul Normal 150-450 [facility] Comment on above: Performed By: #### C BC #### [facility] [address] [place] [address] Dr. Lela Okeefe RBC 4.87 106/ul Normal 4.20-5.40 [facility] Comment on above: Performed By: #### C BC #### [facility] [address] [place] [address] Dr. Lela Okeefe WBC 9.6 103/ul Normal 4.0-11.0 [facility] Comment on above: Performed By: #### C BC #### [facility] [address] [place] [address] Dr. Lela Okeefe FREE T3on 04-10-2022 FREE T3 2.59 pg/mlL Normal 2.18-3.98 [facility] Comment on above: Performed By: #### C BC #### [facility] [address] [place] [address] Dr. Lela Okeefe FREE T4on 04-10-2022 Free T4 [Mass/Vol] 1.00 ng/dL Normal 0.76-1.46 [facility] Comment on above: Performed By: #### F T4 #### [facility] [address] [place] [address] Dr. Lela Okeefe PROF CHEM 8 (BAS METB)on Anion gap [Moles/Vol] 12.3 mmol/L Normal Th [facility] Comment on above: Performed By: #### B MP, TSH #### [facility] [address] [place] [address] Dr. Lela Okeefe Calcium [Mass/Vol] 9.4 mg/dL Normal 8.5-10.1 [facility] Comment on above: Performed By: #### B MP, TSH #### [facility] [address] [place] [address] Dr. Lela Okeefe Chloride [Moles/Vol] 102 mmol/L Normal 98-107 [facility] Comment on above: Performed By: #### B MP, TSH #### [facility] [address] [place] [address] Dr. Lela Okeefe CO2 [Moles/Vol] 28.3 mmol/L Normal 21.0-32.0 [facility] Comment on above: Performed By: #### B MP, TSH #### [facility] [address] [place] [address] Dr. Lela Okeefe Creatinine [Mass/Vol] 0.77 mg/dL Normal 0.55-1.02 [facility] Comment on above: Performed By: #### B MP, TSH #### [facility] [address] [place] [address] Dr. Lela Okeefe EGFR-AF IRISH >60 Normal >=60 The [facility] Comment on above: Performed By: #### B MP, TSH #### [facility] [address] [place] [address] Dr. Lela Okeefe EGFR-NON AF IRISH >60 Normal >=60 [facility] Comment on above: Performed By: #### B MP, TSH #### [facility] [address] [place] [address] Dr. Lela Okeefe Glucose [Mass/Vol] 101 mg/dL Normal 74-106 The [facility] Comment on above: Performed By: #### B MP, TSH #### [facility] [address] [place] [address] Dr. Lela Okeefe Potassium [Moles/Vol] 4.6 mmol/L Normal 3.5-5.1 [facility] Comment on above: Performed By: #### B MP, TSH #### [facility] [address] [place] [address] Dr. Lela Okeefe Sodium [Moles/Vol] 138 mmol/L Normal 136-145 The [facility] Comment on above: Performed By: #### B MP, TSH #### [facility] [address] [place] [address] Dr. Lela Okeefe Urea nitrogen [Mass/Vol] 11.0 mg/dL Normal 7.0-18.0 [facility] Comment on above: Performed By: #### B MP, TSH #### [facility] [address] [place] [address] Dr. Lela Okeefe Urea nitrogen/Creatinine [Mass ratio] 14.3 mg/mg Normal [facility] Comment on above: Performed By: #### B MP, TSH #### [facility] [address], [place] [address] Dr. Lela Okeefe TSHon 04-10-2022 TSH 0.346 uIU/mL Critically low 0.358-3.74 0 [facility] Comment on above: Performed By: #### B MP, TSH #### [facility] [address], [place] [address] Dr. Lela Okeefe Office Visiton 03-28-2022 Follow-up visit [id number] Ada Kirkland 1990 F Date Provider Department Center 03/28/2022 ELANA MORALES [facility] Family History Problem Relation Age of Onset Heart attack Father 44 Coronary artery disease Father Clotting disorder Father Family Status - Relation Status Age at Father Alive Level of Service:00262 IN OFFICE/OUTPATIENT ESTABLISHED MDM 10-19 MIN Normal [facility] ECHOCARDIO M/2D COMPLETEon 1 ECHOCARDIO M/2D COMPLETE Patient: MORGAN KIRKLAND Exam Date: 12/24/2021 : 1990 Gender:F Ordering : ROYER PEARCE Admission #: [id number] Family : DR DAVID NEWBERRY M.D. Order #: [id number] CLICK HERE TO VIEW EXAM ECHOCARDIOGRAM REPORT [...] M.D. on 12/24/2021 at 15:14 Normal The [facility] AUTO DIFFon 11-23-2021 BASO # 0.0 103/ul Normal 0.0-0.1 [facility] Comment on above: Performed By: #### C BC #### [facility] [address] [address] [address] Lela Okeefe Basophils/100 WBC (Bld) 0.4 % Normal 0.2-2.0 [facility] Comment on above: Performed By: #### C BC #### [facility] [address] [address] [address] Lela Okeefe EO # 0.1 103/ul Normal 0.0-0.7 [facility] Comment on above: Performed By: #### C BC #### [facility] [address] [place] [address] Dr. Lela Okeefe Eosinophils/100 WBC (Bld) 1.4 % Normal 0.9-7.0 [facility] Comment on above: Performed By: #### C BC #### [facility] [address] [place] [address] Dr. Lela Okeefe Erythrocyte distribution width (RBC) [Ratio] 12.0 % Normal 11.0-15.0 [facility] Comment on above: Performed By: #### C BC #### [facility] [address] [place] [address] Dr. Lela Okeefe Hematocrit (Bld) [Volume fraction] 43.0 % Normal 36.0-48.0 [facility] Comment on above: Performed By: #### C BC #### [facility] [address] [place] [address] Dr. Lela Okeefe Hemoglobin (Bld) [Mass/Vol] 14.4 g/dL Normal 12.0-16.0 [facility] Comment on above: Performed By: #### C BC #### [facility] [address] [place] [address] Dr. Lela Okeefe IG # 0.02 10e3/ul Normal 0.00-0.03 [facility] Comment on above: Performed By: #### C BC #### [facility] [address] [place] [address] Dr. Lela Okeefe IG % 0.3 % Normal 0.0-0.5 [facility] Comment on above: Performed By: #### C BC #### [facility] [address] [place] [address] Dr. Lela Okeefe LYMPH # 2.1 103/ul Normal 1.2-3.8 [facility] Comment on above: Performed By: #### C BC #### [facility] [address] [place] [address] Dr. Lela Okeefe Lymphocytes/100 WBC (Bld) 29.2 % Normal 20.5-60.0 [facility] Comment on above: Performed By: #### C BC #### [facility] [address] [place] [address] Dr. Lela Okeefe MANUAL DIFF REQ NO Normal [facility] Comment on above: Performed By: #### C BC #### [facility] [address] [place] [address] Dr. Lela Okeefe MCH (RBC) [Entitic mass] 29.7 pg Normal 26.7-34.0 [facility] Comment on above: Performed By: #### C BC #### [facility] [address] [place] [address] Dr. Lela Okeefe MCHC (RBC) [Mass/Vol] 33.5 g/dL Normal 29.9-35.2 [facility] Comment on above: Performed By: #### C BC #### [facility] [address] [place] [address] Dr. Lela Okeefe MCV (RBC) [Entitic vol] 88.7 fL Normal 81.0-99.0 [facility] Comment on above: Performed By: #### C BC #### [facility] [address] [place] [address] Dr. Lela Okeefe MONO # 0.5 103/ul Normal 0.3-0.8 [facility] Comment on above: Performed By: #### C BC #### [facility] [address] [place] [address] Dr. Lela Okeefe Monocytes/100 WBC (Bld) 6.9 % Normal 1.7-12.0 [facility] Comment on above: Performed By: #### C BC #### [facility] [address] [place] [address] Dr. Lela Okeefe NEUT # 4.4 103/ul Normal 1.4-6.5 [facility] Comment on above: Performed By: #### C BC #### [facility] [address] [place] [address] Dr. Lela Okeefe Neutrophils/100 WBC (Bld) 61.8 % Normal 43.0-75.0 [facility] Comment on above: Performed By: #### C BC #### [facility] [address] [place] [address] Dr. Lela Okeefe Platelet mean volume (Bld) [Entitic vol] 9.3 fL Critically low 9.5-13.5 [facility] Comment on above: Performed By: #### C BC #### [facility] [address] [place] [address] Dr. Lela Okeefe PLT 239 103/ul Normal 150-450 [facility] Comment on above: Performed By: #### C BC #### [facility] [address] [place] [address] Dr. Lela Okeefe RBC 4.85 106/ul Normal 4.20-5.40 [facility] Comment on above: Performed By: #### C BC #### [facility] [address] [place] [address] Dr. Lela Okeefe WBC 7.1 103/ul Normal 4.0-11.0 [facility] Comment on above: Performed By: #### C BC #### [facility] [address] [place] [address] Dr. Lela Okeefe LIPID PROFILEon 11-23-2021 CHOL-HDL RATIO NORM SEE BELOW Normal The [facility] Comment on above: Result Comment: 3.3 - 4.4 LOW RISK 4.4 - 7.1 AVERAGE RISK 7.1 - 11.0 MODERATE RISK >11.0 HIGH RISK Performed By: #### C BC #### [facility] [address] [place] [address] Dr. Lela Okeefe Cholesterol [Mass/Vol] 177 mg/dL Normal <=[address] [facility] Comment on above: Performed By: #### C BC #### [facility] [address], [place] [address] Dr. Lela Okeefe Cholesterol in HDL [Mass/Vol] 38 mg/dL Critically low 40-60 [facility] Comment on above: Performed By: #### C BC #### [facility] [address], [place] [address] Dr. Lela Okeefe Cholesterol in LDL [Mass/Vol] 121.6 mg/dL Normal [facility] Comment on above: Performed By: #### C BC #### [facility] [address] [address] [address] Lela Okeefe Cholesterol.total/Chol esterol in HDL [Mass ratio] 4.7 {ratio} Normal [facility] Comment on above: Performed By: #### C BC #### [facility] [address] [place] [address] Dr. Lela Okeefe HDL NORMAL > or = 60 mg/dl - LO W CARDIOVASCULAR RISK <40 mg/dl - HIGH CARDIOVASCULAR RISK Normal [facility] Comment on above: Performed By: #### C BC #### [facility] [address] [place] [address] Dr. Lela Okeefe LDL CALC NORMAL SEE BELOW Normal [facility] Comment on above: Result Comment: <100 mg/dl OPTIMAL 100 - 129 mg/dl NEAR OR ABOVE OPTIMAL 130 - 159 mg/dl BORDERLINE HIGH 160 - 189 mg/dl HIGH >190 mg/dl VERY HIGH Performed By: #### C BC #### [facility] [address] [address] [address] Lela Okeefe Triglyceride [Mass/Vol] 87 mg/dL Normal <=150 The [facility] Comment on above: Performed By: #### C BC #### [facility] [address] [place] [address] Dr. Lela Okeefe VLDL CALC 17.4 mg/dL Normal [facility] Comment on above: Performed By: #### C BC #### [facility] [address] [place] [address] Dr. Lela Okeefe PROF CHEM 8 (BAS METB)on Anion gap [Moles/Vol] 9.2 mmol/L Normal [facility] Comment on above: Performed By: #### B MP, TSH, LIPID #### [facility] [address] [place] [address] Dr. Lela Okeefe Calcium [Mass/Vol] 8.9 mg/dL Normal 8.5-10.1 [facility] Comment on above: Performed By: #### B MP, TSH, LIPID #### [facility] [address] [place] [address] Dr. Lela Okeefe Chloride [Moles/Vol] 105 mmol/L Normal 98-107 The [facility] Comment on above: Performed By: #### B MP, TSH, LIPID #### [facility] [address] [place] [address] Dr. Lela Okeefe CO2 [Moles/Vol] 28.8 mmol/L Normal 21.0-32.0 [facility] Comment on above: Performed By: #### B MP, TSH, LIPID #### [facility] [address] [place] [address] Dr. Lela Okeefe Creatinine [Mass/Vol] 0.77 mg/dL Normal 0.55-1.02 [facility] Comment on above: Performed By: #### B MP, TSH, LIPID #### [facility] [address] [place] [address] Dr. Lela Okeefe EGFR-AF IRISH >60 Normal >=60 [facility] Comment on above: Performed By: #### B MP, TSH, LIPID #### [facility] [address] [place] [address] Dr. Lela Okeefe EGFR-NON AF IRISH >60 Normal >=60 The [facility] Comment on above: Performed By: #### B MP, TSH, LIPID #### [facility] [address] [place] [address] Dr. Lela Okeefe Glucose [Mass/Vol] 103 mg/dL Normal 74-106 The [facility] Comment on above: Performed By: #### B MP, TSH, LIPID #### [facility] [address] [place] [address] Dr. Lela Okeefe Potassium [Moles/Vol] 4.0 mmol/L Normal 3.5-5.1 [facility] Comment on above: Performed By: #### B MP, TSH, LIPID #### [facility] [address] [address] [address] Lela Okeefe Sodium [Moles/Vol] 139 mmol/L Normal 136-145 [facility] Comment on above: Performed By: #### B MP, TSH, LIPID #### [facility] [address] [address] [address] Lela Okeefe Urea nitrogen [Mass/Vol] 10.0 mg/dL Normal 7.0-18.0 [facility] Comment on above: Performed By: #### B MP, TSH, LIPID #### [facility] [address] [address] [address] Lela Okeefe Urea nitrogen/Creatinine [Mass ratio] 13.0 mg/mg Normal [facility] Comment on above: Performed By: #### B MP, TSH, LIPID #### [facility] [address] [address] [address] Lela Okeefe TSHon 11-23-2021 TSH 1.092 uIU/mL Normal 0.358-3.74 0 [facility] Comment on above: Performed By: #### C BC #### [facility] [address] [place] [address] Dr. Lela Okeefe PROGRESSon 03-29-2019 PROGRESS HNO ID: [id number] Author: Jose Olea Service: ? Author Type: Physician Type: Progress Notes Filed: 03/29/2019 10:25 AM Note Text: Patient here for ultrasound. See ultrasound report for details. Jose Olea MD [facility] PROGRESSon 03-15-2019 PROGRESS HNO ID: [id number] Author: Dasha Ibanez Service: ? Author Type: [...] SUSIE is normal. See ultrasound report Dasha Ibanze MD [facility] PROGRESSon 03-01-2019 PROGRESS HNO ID: [id number] Author: Tobias Yang Service: ? Author Type: [...] report available in the Imaging tab in [employer] ? Tobias Yang MD [facility] PROGRESSon 02-16-2019 PROGRESS HNO ID: [id number] Author: Tobias Yang Service: ? Author Type: [...] report available in the Imaging tab in [employer] ? Tobias Yang MD [facility] PROGRESS 01-31-2019 PROGRESS HNO ID: [id number] Author: Tobias Yang Service: ? Author Type: [...] tab in Epic ? Tobias Yang MD [facility] PROGRESSon 01-18-2019 PROGRESS HNO ID: [id number] Author: Tobias Yang Service: ? Author Type: [...] Imaging tab in Epic Tobias Yang MD [facility] Vital Signs Date Time Vital Sign Value Performing Clinician Facility 03-20-2023 08:30-0500 Body height 170.18 cm David Newberry Other [facility] Other 03-20-2023 08:30-0500 Body mass index (BMI) [Ratio] 43.47 kg/m2 David Newberry Other [facility] Other 03-20-2023 08:30-0500 Body weight 125.92 kg David Newberry Other [facility] Other 03-20-2023 08:30-0500 Diastolic blood pressure 74 mm[Hg] David Newberry Other [facility] Other 03-20-2023 08:30-0500 Systolic blood pressure 109 mm[Hg] David Newberry Other [facility] Other 01-23-2023 08:56-0500 Blood Pressure Location Clark CLEMENS [facility] 01-23-2023 08:56-0500 Diastolic blood pressure 82 mm[Hg] Clark CLEMENS [facility] 01-23-2023 08:56-0500 Heart rate 73 /min Clark CLEMENS [facility] 01-23-2023 08:56-0500 Respiratory rate 16 /min Clark CLEMENS [facility] 01-23-2023 08:56-0500 Systolic blood pressure 124 mm[Hg] Clark CLEMENS [facility] 12-29-2022 12:42-0400 Diastolic blood pressure 74 mm[Hg] MD David Newberry Work Phone: [facility] 12-29-2022 12:42-0400 Heart rate 95 /min MD David Newberry Work Phone: [facility] 12-29-2022 12:42-0400 Respiratory rate 18 /min MD David Newberry Work Phone: [facility] 12-29-2022 12:42-0400 SaO2% (BldA) [Mass fraction] 97 % MD David Newberry Work Phone: [facility] 12-29-2022 12:42-0400 Systolic blood pressure 105 mm[Hg] MD David Newberry Work Phone: [facility] 12-29-2022 09:45-0400 Body temperature 98.6 [degF] MD David Newberry Work Phone: [facility] 12-29-2022 09:07-0400 Inhaled oxygen flow rate 8 L/min MD David Newberry Work Phone: [facility] 12-29-2022 07:18-0400 Body height 170.18 cm MD David Newberry Work Phone: [facility] 12-29-2022 07:18-0400 Body mass index (BMI) [Ratio] 42.3 kg/m2 MD David Newberry Work Phone: [facility] 12-29-2022 07:18-0400 Body weight 122.46 kg MD David Newberry Work Phone: [facility] 05-19-2022 10:18-0500 Blood Pressure Location Clark CLEMENS [facility] 05-19-2022 10:18-0500 Diastolic blood pressure 71 mm[Hg] Clark CLEMENS [facility] 05-19-2022 10:18-0500 Heart rate 51 /min Clark CLEMENS [facility] 05-19-2022 10:18-0500 Respiratory rate 16 /min Clarkjosse CLEMENS [facility] 05-19-2022 10:18-0500 Systolic blood pressure 113 mm[Hg] Clark CLEMENS [facility] 04-10-2022 15:00-0500 Body height 170.18 cm Dvaid Newberry Other [facility] Other 01-26-2023 15:00-0500 Body mass index (BMI) [Ratio] 36.33 kg/m2 David Newberry Other [facility] Other 04-10-2022 15:00-0500 Body weight 105.24 kg David Newberry Other [facility] Other 04-10-2022 15:00-0500 Diastolic blood pressure 74 mm[Hg] David Newberry Other [facility] Other 04-10-2022 15:00-0500 SaO2% (BldA) [Mass fraction] 97 % David Newberry Other [facility] Other 04-10-2022 15:00-0500 Systolic blood pressure 122 mm[Hg] David Newberry Other [facility] Other Encounters Encounter Date Encounter Type Care Provider Facility Start: 01-29-2024 ambulatory Clark Staplesi ty:DIONY Rivas Start: 03-20-2023 End: 03-20-2023 ambulatory David Newberry Other [facility] Other Start: 03-20-2023 Office outpatient vi sit 15 minutes David Newberry [facility] Start: 03-03-2023 End: 03-03-2023 ambulatory [facility]G [facility] Start: 02-27-2023 End: 03-02-2023 ambulatory DAVID NEWBERRY [facility] Start: 02-27-2023 End: 03-01-2023 Subsequent hospital visit by physician [facility] Comment on above: Postural dizziness w ith near syncope Start: 02-10-2023 End: 02-10-2023 ambulatory DASHA GARCIA Not Available Start: 01-23-2023 End: 01-24-2023 ambulatory Clark CLEMENS Facility:[facility] Start: 01-23-2023 End: 01-23-2023 Patient encounter procedure Clark CLEMENS [facility] [place] Start: 01-20-2023 End: 01-20-2023 ambulatory Enrique Lucas Facility:[facility] Start: 01-20-2023 End: 01-20-2023 ambulatory MD David Newberry Work Phone: [facility] Work Phone: Start: 01-20-2023 End: 01-20-2023 Patient encounter procedure MD David Newberry Work Phone: [facility] [address] Work Phone: Start: 01-09-2023 End: 01-09-2023 ambulatory [facility] Start: 12-29-2022 End: 12-29-2022 ambulatory Dashamarcial Garcia Facility:[facility] Start: 12-29-2022 End: 12-29-2022 Admission to same day surgery center MD David Newberry Work Phone: [facility] [address] [place] Start: 12-15-2022 End: 12-15-2022 ambulatory Dasha Garcia Facility:[facility] Start: 12-15-2022 End: 12-15-2022 ambulatory MD David Newberry Work Phone: [facility] Work Phone: Start: 12-15-2022 End: 12-15-2022 Patient encounter procedure MD David Newberry Work Phone: [facility] Work Phone: Start: 10-10-2022 End: 10-10-2022 ambulatory David Newberry Other [facility] Other Start: 10-10-2022 Telephone encounter David Newberry [facility] Start: 09-10-2022 End: 09-10-2022 ambulatory [facility] Start: 08-29-2022 End: 08-29-2022 ambulatory NAHID GRIFFIN [facility] Start: 08-21-2022 End: 08-21-2022 ambulatory [facility] Start: 07-17-2022 End: 07-18-[address] DAVID NEWBERRY Facility:[facility] Start: 07-17-2022 Encounter for other preprocedural examination DR CLARK CLEMENS . [facility] Start: 07-17-2022 Encounter for preprocedural cardiovascular examination DR CLARK CLEMENS . [facility] Start: 07-17-2022 Encounter for preprocedural laboratory examination DR CLARK CLEMENS . [facility] Start: 07-15-2022 End: 07-15-2022 ambulatory [facility] Start: 07-11-2022 End: 07-12-[address] DAVID NEWBERRY Facility:[facility] Start: 07-11-2022 End: 07-12-2022 Encounter for preprocedural laboratory examination DR DAVID NEWBERRY Facility: Start: 06-02-2022 End: 06-03-[address] DAVID NEWBERRY Facility: Start: 05-19-2022 End: 05-20-[address] DAVID NEWBERRY Facility: Start: 05-19-2022 End: 05-20-2022 ambulatory Clark CLEMENS Facility:[facility] Start: 05-19-2022 End: 05-19-2022 Patient encounter procedure Clark CLEMENS [facility] Start: 05-16-2022 End: 05-16-2022 ambulatory David Newberry Other [facility] Other Start: 05-16-2022 Telephone encounter David Newberry [facility] Start: 05-09-2022 End: 05-09-2022 ambulatory David Newberry Other [facility] Other Start: 02-24-2023 Nursing evaluation o f patient and report David Newberry [facility] Start: 04-29-2022 End: 04-29-2022 ambulatory OG BARONE [facility] Start: 04-25-2022 End: 04-25-2022 ambulatory David Newberry Other [facility] Other Start: 04-25-2022 Telephone encounter David Newberry [facility] Start: 04-23-[address] DAVID NEWBERRY Facil ity:[facility] Start: 04-12-2022 End: 04-13-[address] DAVID NEWBERRY Facility:[facility] Start: 04-11-2022 End: 04-11-[address] DAVID NEWBERRY [facility] Other Start: 04-11-2022 Telephone encounter David Newberry [facility] Start: 04-10-2022 Office outpatient vi sit 15 minutes David Newberry [facility] Start: 04-10-2022 End: 04-10-[address] AMBIKA SALDAÑA . [facility] Other Start: 03-28-2022 End: 03-28-2022 ambulatory [facility] Start: 01-09-2022 Adult health examination Gabbi Newberry Other [facility] Other Start: 12-24-2021 End: 12-25-2021 ambulatory ROYER PEARCE Facility:[facility] Start: 11-29-2021 Encounter for genera l adult medical examination without abnormal findings DR DAVID NEWBERRY [facility] Start: 11-23-2021 End: 11-24-[address] DAVID NEWBERRY Facility:[facility] Start: 11-23-2021 End: 11-24-2021 Encounter for general adult medical examination without abnormal findings DR DAVID NEWBERRY Facility:[facility] Procedures Date Procedure Procedure Detail Performing Clinician Start: 02-27-2023 Cardiovascular funct ion eval w/tilt table w/mntr Elana Ramirez COSTUME CUTTER - CATERER'S AIDE Work Phone: Start: 12-29-2022 Total hysterectomy v ia vaginal approach MD David Newberry Work Phone: Start: 12-15-2022 Antibody screen Enrique Lucas Comment on above: Order Comment: Date of Surgery: [id number] Result Comment: PERF ORMED BY: [facility] [address] PATHOLOGIST FRONT OFFICE ASSISTANT OLIMPIA MORA M.D. Start: 07-17-2022 Transurethral cystoscopy Clark CLEMENS Start: 03-16-2012 Tonsillectomy and adenoidectomy Clark CLEMENS H/O: hysterectomy S/P laparoscop ic hysterectomy MD David Newberry Work Phone: Laparoscopic-assiste d vaginal hysterectomy Clark CLEMENS Plan of Treatment Date Care Activity Detail Author Start: 06-06-2029 DTaP/Tdap/Td vaccine (2 - Td or Tdap) DTaP/Tdap/Td vaccine (2 - Td or Tdap) [facility] Start: 01-20-2023 Bacteria identified in Urine by Culture Urine Culture [facility] Start: 12-29-2022 [facility] Start: 12-29-2022 Hospital admission [facility] Start: 11-14-2022 COVID-19 Vaccine ( season) COVID[facility]19 Vaccine () [facility] Start: 10-14-2022 Influenza vaccination Flu vaccine (# 1) [facility] Start: 2020 Screening for malign ant neoplasm of cervix [place] Start: 12-08-2011 Screening for malign ant neoplasm of cervix Pap smear [facility] Start: 2008 Hepatitis C screening Hepatitis C sc reen [facility] Start: 2005 HIV screening HIV screen [facility] [place] Start: 2002 Depression Screen Depression Screen [facility] Start: 12-08-1991 Varicella vaccine (1 of 2 - 2-dose childhood series) Varicella vaccine (1 of 2 - 2-dose childhood series) [facility] Start: 1990 Hepatitis B vaccine (1 of 3 - 3-dose series) Hepatitis B vaccine (1 of 3 - 3-dose series) [facility] Complement C3 [Mass/volume] in Serum or Plasma [facility] Complement C4 [Mass/volume] in Serum or Plasma [facility] Patient referral [facility] Work Phone: End: 02-27-2023 Tilt table Tilt table CV Cardiac Diagnostics Routine Postural dizziness with near syncope 1 Occurrences starting 02/27/2023 until 02/27/2023 [place] Work Phone: Comment on above: 1 Occurrences starti ng 02/27/2023 until 02/27/2023 Immunizations Immunization Date Immunization Notes Care Provider Silvia marinelli 04-25-2020 SARS-CoV-2 (COVID-19 ) mRNA-1273 vaccine Clark CLEMENS [facility] 03-28-2020 SARS-CoV-2 (COVID-19 ) mRNA-1273 vaccine Clark CLEMENS [facility] 06-07-2019 tetanus toxoid, redu ashly diphtheria toxoid, and acellular pertussis vaccine, adsorbed Clark CLEMENS [facility] 07-01-2018 hepatitis B vaccine, adult dosage Clark LCEMENS [facility] 05-21-2018 hepatitis B vaccine, adult dosage Clark CLEMENS [facility] Payers Date Payer Category Payer Unknown [id number] 2.16.84 [id number] 1990 Unknown [id number] 2.16.84 0.1.076112.3.579.2.593 1990 Unknown [id number] 2.16.84 0.1.930324.3.579.2.593 1990 Unknown [id number] 2.16.84 0.1.840554.3.579.2.593 1990 Unknown [id number] 2.16.84 0.1.318100.3.579.2.593 1990 Unknown [id number] 2.16.84 0.1.269213.3.579.2.593 1990 Unknown [id number] 2.16.84 0.1.691470.3.579.2.593 1990 Unknown [id number] 2.16.84 0.1.678032.3.579.2.593 1990 Unknown [id number] 2.16.84 0.1.953021.3.579.2.593 1990 Unknown [id number] 2.16.84 0.1.655353.3.579.2.593 1990 Unknown [id number] 2.16.84 0.1.256956.3.579.2.593 1990 Unknown [id number] 2.16.84 0.1.106864.3.579.2.593 1990 Unknown [id number] 2.16.8 40.1.352120.3.579.2.727 1990 Unknown [id number] 2.16.8 40.1.487045.3.579.2.727 1990 Unknown [id number] 2.16.8 40.1.297352.3.579.2.727 1990 Unknown [id number] 2.16.8 40.1.422598.3.579.2.727 1990 Unknown [id number] 2.16.840 .1.616003.3.579.2.1259 1990 Unknown [id number] 2.16.8 40.1.340176.3.579.2.173 1959 Private Health Insurance [id number] Self-pay Private Health Insurance 1 [id number] 2.16.840.1.540907.19 Unknown [id number] 2.16.8 40.1.747890.3.579.2.531 Unknown [id number] 2.16.8 40.1.148009.3.579.2.531 Unknown [id number] 2.16.8 40.1.267454.3.579.2.531 Social History Date Type Detail Facility Unknown if ever smoked [facility] Other Sex Assigned At [facility] Start: 05-19-2022 End: 12-29-2022 Tobacco smoking status Never smoked tobacco (finding) [facility] Tobacco smoking status Never [facility] Start: 1990 Sex Assigned At Female F [facility] Tobacco smoking status NHIS Tobacco smoking consumption unknown [facility] Start: 1990 Sex Assigned At Not on file [facility] Goals Date Patient Goal Desired Activity /State Functional Status Date Assessment Result Facility 01-23-2023 Functional Status N/A [facility] 05-19-2022 Functional Status N/A [facility] Clinical Notes 03-28-2022 to 03-20-2023 Note Date & Type Note Facility 03-20-2023 Evaluation note Encounter Date Diagnosis Assessment Notes Mar, Paroxysmal SVT (supraventricul ar tachycardia) (ICD-10 - I47.10) Discussed f/u w cardiology Mar, Daytime somnolence (ICD-10 - R40.0) HST order faxed to [facility] sleep lab. Mar, Morbid (severe) obesity due to excess calories (ICD-10 - E66.01) as above Mar, Body mass index [BMI] 40.0-44.9, adult (ICD-10 - Z68.41) as above Mar, Fatigue, unspecified type (ICD-10 - R53.83) as above [facility] Other [id number] NotePatient here for follow up tilt table test per Elana Ramirez CNP. Review of Systems Cardiovascular: Positive for palpitations. Neurological: Positive for dizziness, headaches and light-headedness. All other systems reviewed and are negative.[facility] 03-03-2023 NoteUT Electrophysiology Consult Note Reason [...] had a tilt table study done at [employer]. this that was a negative study based [...] tablet 3 No curre (more content not included)...[facility] 02-27-2023 History of Present illness Narrative* May Crandall RN - 02/27/2023 2:30 PM EST Instructed on objectives and procedure of a tilt study documented [facility] Hospital Discharge instructions Patient Education 01/23/2023 09:39:05 Urinary Tract Infection, Adult, Yjtp-ot-Zbuq Urinary Tract Infection, Adult A urinary tract [...] Follow these instructions at home: Medicines Take yzrj-gue-nohhqxh and prescription medicines only as told by [...] provider. Document Revised: 10/12/2020 Document Reviewed: 10/12/2020 [employer] Patient Education 2022 [employer]. Follow Up Care 07/18/2022 12:23:23 With:MIKY SAMPSON, Clark Roldan, URL Address: [facility] [address], [place] [address]- [phone] When: Unknown Comments:1 yr w/ REYNA [facility] 10-27-2023 NotePatient here for 4 mo follow [...] light-headedness. All other systems reviewed and are negative.[facility] 01-09-2023 NoteUT Electrophysiology Consult Note Reason [...] monitor in December reviewed by Juan Ramirez, PROCEDURES ANALYST showed sinus tachycardia, atrial arrhythmia. Patient reported [...] no cyanosis, no pa (more content not included)...[facility]10-01-2023 History general Narrative - Reported* Type Description Date Medical History tachycardia Medical History anxiety Medical History sjogren syndrome Surgical History tonsillectomy and adenoidectomy Surgical History Hysterectomy 12/2022 Surgical History Loop monitor 08/2022 [facility] Other 06-28-2023 NoteReview of Systems Cardiovascular: Positive for palpitations. Neurological: Positive for dizziness, headaches and light-headedness.[facility]06-28-2023 NoteUT Electrophysiology Consult Note Reason for [...] monitor in December reviewed by Juan Ramirez, PROCEDURES ANALYST showed sinus tachycardia, atrial arrhythmia. Patient reported [...] Lungs Respiratory Effort: unlabored (more content not included)...[facility]06-16-2023 NotePatient seen for wound check s/p loop device placement on 08/21/2022. Wound is clean, dry, intact, and well approximated. Discussed wound care including avoiding, rubbing, lotions, direct shower head pressure, caution with seat belt and bra straps, as well as avoiding other irritants. We will schedule appointment for evaluation of ongoing lightheadedness and dizziness.[facility]06-08-2023 NoteLOOP IMPLANT PROCEDURE NOTE DATE OF PROCEDURE: 08/21/22 PERFORMING PHYSICIAN: Dr. Og Barone SWIMMING POOL SERVICER: JESS INDICATIONS FOR PROCEDURE: 1. SVT/AF surveillance [...] the sternum on the left using the [employer] tool. The loop recorder was then [...] wet the incision. Og Barone MD Cardiac Electrophysiology.[facility]05-03-2023 Note0 points Class I Risk 3.9 % 30-day risk of , [place], or cardiac arrest METS greater than 6 Echo 12/2021 no regional wall motion abnormality, normal LV function and size. Patient can proceed with urological procedure. She is a low risk patient going into a low risk-intermediate procedure. [facility]05-02-2023 NoteUT Electrophysiology Consult Note Reason for [...] monitor in December reviewed by Juan Ramirez, PROCEDURES ANALYST showed sinus tachycardia, atrial arrhythmia. Patient reported [...] Inspection: no joint swell (more content not included)...[facility]03-06-2023 Hospital Discharge instructions Patient Education 05/19/2022 [...] include: ?Spinach. ?Rhubarb. ?Beets. ?Potato chips and [place] of [place] fries. ?Nuts. If you regularly take a diuretic medicine, make sure to eat at least 1 2 fruits or vegetables high in potassium each day. These include: ?Avocado. ?Banana. ?[place], prune, carrot, or tomato juice. ?Baked potato. [...] Casseroles. Pizza. Lasagna. Frozen meals. Potato chips. Chilean fries. Summary You can reduce your risk [...] 06/27/2011 Document Revised: 06/22/2019 Document Reviewed: 02/10/2017 [employer] Patient Education 2020 [employer]. Follow Up Care 05/16/2022 10:14:36 With:MIKY SAMPSON, Clark Roldan, URL Address: [facility] [address] , [place] [address]- When: Unknown [facility] [place] 03-03-2023 Evaluation note* Encounter Date Diagnosis Assessment Notes Treatment Notes Treatment Clinical Notes May, Thyroid disease (ICD-10 - E07.9) [facility] Other 02-24-2023 Evaluation note* Encounter Date Diagnosis Assessment Notes Treatment Notes Treatment Clinical Notes Apr, Dysuria (ICD-10 - R30.0) [facility] Other 02-14-2023 NoteUT Electrophysiology Consult Note Reason [...] are attached to t (more content not included)...[facility]01-31-2023 NotePatient pcp increased dose due to [...] was moved up to 04/29/22 at the [facility]. I did give patient my google voice number if she has any other events or concerns and to [facility] directly [facility]01-26-2023 Evaluation note* Encounter Date Diagnosis Assessment [...] Acute non-recurrent maxillary sinusitis (ICD-10 - J01.00) [facility] Other 01-25-2023 Notehypertension is stable today.[facility]01-25-2023 Note- Event monitor was not reported as read -There are some concerns for an atrial arrhythmia -I will increase metoprolol to tartrate to 50 mg twice daily -I will have her see Dr. Barone follow-up to discuss her event monitor -She is in the meantime to call with any worsening symptoms, intolerance of metoprolol, and any syncopal eventsWestern Reserve Hospital01-13-2023 NoteUT Cardiology Consult Note Reason for [...] of emboli Peripheral Pulses (more content not included)...[facility] + Plan note No data available for this section [facility] evaluation + Plan note Future Appointments Appointment Date:01/29/2024 08:30:00 AM Scheduled Provider:MIKY SAMPSON, Clark Roldan Location:[facility] Appointment Type:URO Office Visit [facility] evaluation noteNo InformationNort [employer] Other Evaluation noteNo assessment information available [facility] Work Phone: Evaluation note* Diagnosis Postural dizziness with near syncope documented in this encounter [facility] general Narrative - Reported* Type Description Date Medical History tachycardia Medical History anxiety Medical History sjogren syndrome Surgical History tonsillectomy and adenoidectomy [facility] Other Progress note No data available for this section [facility] Summary Purpose Family History Relationship Condition Age [...] Procedures Tilt table Elana Ramirez APRN - CATERER'S AIDE [id number] [place] [address] Referral ID Status Reason Start Date Expiration Date Visits Re quested Visits Authorized [id number] Closed 02/16/2023 02/16/2024 1 1 Additional Source Comments INFORMATION SOURCE (unrecogn ized section and content) DATE CREATED AUTHOR 03/29/2019 [facility] DATE CREATED AUTHOR AUTHOR'S ORGANIZ ATION 07/24/2022 [facility] DATE CREATED AUTHOR AUTHOR'S ORGANIZ ATION 01/25/2023 [facility] DATE CREATED AUTHOR AUTHOR'S ORGANIZ ATION 01/29/2023 [facility] DATE CREATED AUTHOR AUTHOR'S ORGANIZ ATION 02/11/2023 [facility] DATE CREATED AUTHOR AUTHOR'S ORGANIZ ATION 03/02/2023 [facility] DATE CREATED AUTHOR AUTHOR'S ORGANIZ ATION 03/04/2023 [facility] REASON FOR VISIT (unrecogniz ed section and content) sleep apnea discussion Specialty Diagnoses / Procedures Referred By Contac t Referred To Contact Diagnoses Postural dizziness with near syncope Procedures Tilt table Elana Ramirez APRN - CATERER'S AIDE [address] [place] [address] Referral ID Status Reason Start Date Expiration Date Visits Re quested Visits Authorized [id number] Closed 02/16/2023 02/16/2024 1 1 Patient Care [...] Active Enrique Lucas MD Attending Provider Active 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 [employer] provides no warranty or guarantee of the accuracy or completeness of information in this document.
== END 2023-04-14 20:02 | disposition home or self-care (01) ==
LOC: SLEEP 20:01
PROVIDERS: PCP Family Medicine; Visit Provider Family Medicine
DX: G47.33 Obstructive sleep apnea (adult) (pediatric) (principal)
CPT/HCPCS: 95811

== ENCOUNTER 2023-08-01 08:29 | Outpatient (OUT) | payer OTHER, SELFPAY ==
--- OUTSIDE RECORDS SUMMARY | 2023-08-01 08:32 | XMS_ITS | CCD ---
Author Organization [facility] Care Team Providers Care Bed Operator Name Role Phone David Newberry Unavailable DAVID NEWBERRY Primary Care Physician [phone] ROHITH, DR DAVID Fisher Admitting Unavailable NEWBERRY, [...] Unavailable CLEMENS ., DR RODAS Attending Unavailable HAKAN, DR ZAHRA Roldan Consulting Unavailable NEWBERRY, DR [...] Unavailable KELSIE, DR MEJIA Consulting Unavailable ROYER DINH Consulting Unavailable ROYER DINH Admitting Unavailable ROHITH, DR DAVID Fisher Primary Care Unavailable ROYER DINH Attending Unavailable HAY ., DR APPLE Consulting [...] Primary Care Unavailable CLEMENS ., DR RODAS Consulting Unavailable CLEMENS ., DR RODAS Attending Unavailable CLEMENS ., DR RODAS Admitting Unavailable KEITH PLASENCIA Consulting Unavailable DELFINO COVINGTON Consulting Unavailable MD David Newberry Primary Care Provider [phone] DO Dasha Garcia Attending Provider MD David Newberry Primary Care Provider [phone] Jose, DO Lou Attending Provider MD Enrique Lucas Attending Provider Clark CLEMENS Attending Unavailable Clark CLEMENS Attending Unavailable Clark CLEMENS Attending Unavailable Clark CLEMENS Attending Unavailable Enrique Lucas Admitting Unavailable Enrique Lucas Attending Unavailable David Newberry Primary Care Unavailable Dasha Garcia Admitting Unavailable Dasha Garcia Attending Unavailable David Newberry Primary Care Unavailable Dasha Garcia Attending Unavailable Dasha Garcia Admitting Unavailable David Newberry Primary Care Unavailable David Newberry MD Primary Care Provider DAVID NEWBERRY Primary Care Unavailable ELANA RAMIREZ Referring Unavailable OG BARONE Attending Unavailable NAHID GRIFFIN Attending Unavailable ELANA RAMIREZ Attending Unavailable OG BARONE Admitting Unavailable OG BARONE Attending Unavailable ELANA RAMIREZ Attending Unavailable OG BARONE Attending Unavailable GERSON SOTO Attending Unavailable DASHA GARCIA Attending Unavailable YOEL BENTLYE Attending Unavailable Allergies Allergy Classification Reported Allergen(s) Allergy Type Date of Onset Reaction(s) Facility (14 sources) Penicillin; Translations: [penicillin] Drug Allergy 03-26-19 21 rash, Weal (disorder) [facility] (2 sources) Allergies Reconciled Propensity to adverse reactions Unknown Chef Dovunque Other (2 sources) Substance with penicillin structure and antibacterial mechanism of action (substance) Drug allergy 01-20-20 13 Unknown Chef Dovunque Other (2 sources) patient allergy list reviewed by nurse or physicia Propensity to adverse reactions 09-08-19 14 Comment:Done Chef Dovunque Other (3 sources) Penicillins; Translations: [Penicillins] Allergy to substance 12-16-19 Rash [facility] (3 sources) Povidone-Iodine; Translations: [povidone iodine topical] Drug Allergy 03-03-20 Eruption of skin (disorder) [facility] Medications Current Medications Medication Drug Class(es) Dates Sig (Normalized) Sig (Original) cetirizine hydrochloride 10 mg oral tablet (7 sources) Histamine-1 Receptor Antagonist Start: 04-15-2022 take 1 tablet by mouth every twenty-four hours Cetirizine HCl 10 MG 1 tablet Orally Once a day for 14 days Mar, Active fluticasone propionate 0.05 mg/actuat metered dose nasal spray (7 sources) Corticosteroid Start: 04-15-2022 take 1 spray(s) nasal route twice daily Flonase Allergy Relief 50 MCG/ACT 1 spray in each nostril Nasally Twice a day for 14 day(s) Mar, Active metoprolol tartrate 75 mg oral tablet (13 sources) beta-Adrenergic Caden Start: 12-15-2022 Metoprolol Tartrate 75 mg oral tablet Refills(s) 0 Start Date: 01/23/23 Status: Ordered Start: 05-19-2022 Lopressor 25 m g oral [...] a day for 10 day(s) Mar, Active Completed/Discontinued Medications Medication Drug Class(es) Dates Sig (Normalized) Sig (Original) cefTRIAXone (16 sources) Cephalosporin Antibacterial Start: 11-04-2020 Rocephin 500 mg Oct, 1 g Start: 2016 Rocephin 500 m g Nov, 500 mg docusate sodium 100 mg oral capsule (5 sources) Start: 12-29-2022 End: 07-24-2023 take 1 capsule by mouth twice daily Docusate Sodium (Colace) 100 mg capsule Discontinued 100 MG PO Twice daily December 29, 2022 1:00pm July 24, 2023 8:35am Start: 06-07-2019 End: 12-15-2022 take 1 capsule by mouth twice daily Docusate Sodium (Colace) 100 mg capsule Discontinued 100 MG PO Twice daily June 07, 2019 8:07am December 15, 2022 2:43pm ibuprofen 600 mg oral tablet (5 sources) Nonsteroidal Anti-inflammatory Drug Start: 12-29-2022 End: 07-24-2023 take 600 mg by mouth every six hours Ibuprofen Discontinued 600 MG PO Q6H December 29, 2022 12:00am July 24, 2023 8:35am Start: 06-07-2019 End: 12-15-2022 take 600 mg by mouth every six hours Ibuprofen Discontinued 600 MG PO Q6H June 07, 2019 12:00am December 15, 2022 2:43pm nitroglycerin 0.3 mg sublingual tablet (1 source) Nitrate Vasodilator Start: 02-27-2023 End: 02-27-2023 nitroGLYCERIN (NITROSTAT) SL tablet 0.3 mg Vit 26-Oesu-Xejdy-Dha ( + Dha) 28 mg iron- 975 mcg-200 mg Combo Pack (3 sources) Start: 04-21-2019 End: 12-15-2022 take 1 tablet by mouth once daily Vit 60-Vvyk-Jfdxc-Dha ( + Dha) 28 mg iron- 975 mcg-200 mg Combo Pack Discontinued 1 TAB PO Daily April 21, 2019 12:00am December 15, 2022 1:43pm Start: 04-21-2019 End: 12-15-2022 take 1 tablet by mouth once daily Vit 18-Ylno-Jdkhs-Dha ( + Dha) 28 mg iron- 975 mcg-200 mg Combo Pack Discontinued 1 TAB PO Daily April 21, 2019 1:00am December 15, 2022 2:43pm traMADol hydrochloride 50 mg oral tablet (2 sources) Opioid Agonist Start: 12-29-2022 End: 07-24-2023 take 50 mg by mouth every six hours Tramadol Discontinued 50 MG PO Q6H 30 7 December 29, 2022 12:00am July 24, 2023 8:35am Problems Active Problems Problem Classification Problem Date Documented Date Episodic/Chronic Abdominal pain (17 sources) Abdominal pain; Translations: [Unspecified abdominal pain] [...] history of urinary calculi] Onset: 05-19-2022 Episodic Chronic obstructive pulmonary disease and bronchiectasis (2 sources) Bronchitis; Translations: [Bronchitis, not specified as acute or chronic] Episodic Coma; stupor; and brain damage (2 sources) Daytime somnolence; Translations: [Somnolence] Episodic Endometriosis (2 sources) Uterine adenomyosis; Translations: [Adenomyosis of uterus] 12-29-2022 Chronic Esophageal disorders (5 sources) Gastroesophageal reflux disease; Translations: [Gastro-esophageal reflux disease without esophagitis] Onset: 11-01-2013 11-10-2019 Chronic Essential hypertension (11 sources) Hypertensive disorder; Translations: [Essential (primary) hypertension] Onset: 07-18-2016 11-10-2019 Chronic Genitourinary symptoms and ill-defined conditions (20 sources) Urgent desire to urinate; Translations: [Urgency of urination] Onset: 05-19-2022 Episodic Influenza (2 sources) Upper respiratory tract infection due to Influenza; Translations: [Influenza due to unidentified influenza virus with other respiratory manifestations] Episodic Malaise and fatigue (3 sources) Other fatigue; Translations: [Fatigue] Episodic Menstrual disorders (3 sources) Menorrhagia; Translations: [Excessive and frequent menstruation with regular cycle] Onset: 12-29-2022 12-29-2022 Chronic Other circulatory disease (2 sources) Elevated blood-pressure reading without diagnosis of hypertension; Translations: [Elevated blood-pressure reading, without diagnosis of hypertension] Episodic Other connective tissue disease (2 sources) Bursitis 11-10-2019 Episodic Other connective tissue disease (1 source) Fibromyalgia; Translations: [FIBROMYALGIA] Onset: 07-24-2022 Episodic Other female genital disorders (3 sources) History of past delivery; Translations: [Status [...] mass index (BMI) 40.0-44.9, adult Chronic Other nutritional; endocrine; and metabolic disorders (1 source) Abnormal weight gain; Translations: [Abnormal weight gain] 07-24-2023 Episodic Other nutritional; endocrine; and metabolic disorders (1 source) Abnormal weight gain; Translations: [Abnormal weight gain] 07-24-2023 Episodic Other skin disorders (2 sources) Hypertrophic condition [...] [Acute bronchitis, unspecified] Onset: 09-12-2015 11-10-2019 Episodic Cardiac dysrhythmias (20 sources) Tachycardia, unspecified; Translations: [Palpitations] Onset: 04-06-2014 Episodic Coagulation and hemorrhagic disorders (4 sources) Spontaneous ecchymosis; Translations: [Spontaneous ecchymoses] Onset: 11-30-2013 11-10-2019 Episodic Conditions associated with dizziness or vertigo (4 sources) Postural dizziness; Translations: [Dizziness and giddiness] Onset: 01-09-2023 02-27-2023 Episodic Immunizations and screening for infectious disease [...] Value Interpretation Reference Range Facility Office Visiton 07-07-2023 Follow-up visit [id number] Ada Kirkland 1990 F Date Provider Department Center 07/07/2023 Soraida-GERSON SOTO [facility] Family History Problem Relation Age of Onset Heart attack Father 44 Coronary artery disease Father Clotting disorder Father Family Status - Relation Status Age at Father Alive Level of Service:90454 [place] OFFICE/OUTPATIENT ESTABLISHED LOW MDM 20 MIN Reason for Visit and Comments: Edema [[id number]] Palpitations [797564] Normal [facility] Office Visiton 03-03-2023 Follow-up visit [id number] Ada Kirkland 1990 F Date Provider Department Center 03/03/2023 Merlin-OG BARONE [facility] Family History Problem Relation Age of Onset Heart attack Father 44 Coronary artery disease Father Clotting disorder Father Family Status - Relation Status Age at Father Alive Level of Service:20095 [place] OFFICE/OUTPATIENT ESTABLISHED MOD MDM [address] [facility] Tilt tableOrdered By: Nadiya bonner on 02-27-2023 BP (Initial Tilt) 125/97 mmHg BON SEC OURS [employer] Work Phone: BP (Max BP) 139/92 mmHg BON SECBababooY [employer] Work Phone: BP (Max Heart Rate) 83/41 mmHg BON S [employer] Work Phone: BP (Min BP) 83/41 mmHg BON [employer] Work Phone: BP (Min Heart Rate) 111/82 mmHg BON S ECOURS [employer] Work Phone: BP (Supine) 131/52 bpm BON [employer]Babab[employer] Work Phone: Heart rate 72 /min bpm BON SECOURS [employer] Work Phone: Heart rate 112 /min bpm BON [employer] Work Phone: Minutes (Max BP) 22 BON SECO URS [employer] Work Phone: Minutes (Max Heart Rate) 23 BON SECOURS [employer] Work Phone: Minutes (Min BP) 23 BON SECO URS [employer] Work Phone: Minutes (Min Heart Rate) 6 BON SECOURS [employer] Work Phone: Rhythm (Initial Tilt) SR BON [employer] Work Phone: Rhythm (Max BP) ST BON SECOU RS [employer] Work Phone: Rhythm (Max Heart Rate) ST BON [employer] Work Phone: Rhythm (Min BP) ST MIGUEL RYAN [employer] Work Phone: Rhythm (Min Heart Rate) SR MIGUEL DODSON [employer] Work Phone: Rhythm (Supine) SR MIGUEL RYAN [employer] Work Phone: MIGUEL DODSON [employer] Work Phone: Tilt tableon 02-27-2023 Tilt Study Conclusio [...] with their primary care physician and/ or industrial engineering intern as previously scheduled. [facility] CV CPACS Radiology Study observation (narrative) [employer] Vital signsOrdered By: Nadiya douglass on 02-27-2023 Heart rate 78 /min bpm [employer] Work Phone: Heart rate 122 /min bpm [employer] Phone: Ambulatory Visit Summaryon 1 03-25-2022 Ambulatory Visit Summary MORGAN KIRKLAND :1990 Visit Date:01/23/2023 Ambulatory Visit Instructions Your Diagnosis History of kidney stones Recurrent UTI Tests Performed Urnls Dip Stick Auto w/o Microscopy POC 88424 XR Abdomen 1 View -- Results Pending [...] Follow-Up Appointments Thursday 8:30 AM EST With: Clark CLEMENS MD Where: [facility] Rob Richards [facility] Lab Reportson 01-23-2023 Lab Reports [id number] Normal [facility] Patient Educationon 01-24-20 Patient Education Obstetrics and Gynec ology Urinary [...] these instructions at home: Medicines ? Take glrd-ygb-habxamx and prescription medicines only as told by [...] provider. Document Revised: 10/12/2020 Document Reviewed: 10/12/2020 [employer] Patient Education ? 2022 [employer]. [facility]-2023 [facility] [id number] Maurice Dias [facility] Urology Office/Clinic Noteon 01-23-2023 Urology Office/Clinic Note [...] [facility] [address], [place] [address]- [phone] Additional Instructions: 1 yr w/ KUB Patient Education Urinary Tract Infection, Adult, Jjpj-ob-Gijz I, Antionette Huizar, personally scribed for Dr. Clemens on 01/23/2023 [...] (01/23/23 09:04:00) (more content not included)... Normal [facility] Comment on above: Result Comment: Elec tronically Signed By: Clark CLEMENS MD\.br\Date and Time Signed: 01/23/23 09:41 EST\.br\Electronically Co-Signed By: Antionette Huizar.br\Date and Time Co-Signed: 01/23/23 09:39 EST Physician Orderon 01-21-2023 Physician Order [id number] Normal [facility] Automated erythrocytes count in urine sediment (number/area)Ordered By: Enrique Lucas on 01-20-2023 RBC Auto (Urine sed) [#/Area] 10-19 [HPF] 0-4 [facility] Automated leukocytes count i n urine sediment (number/area)Ordered By: Enrique Lucas on 01-20-2023 WBC Auto (Urine sed) [#/Area] 5-9 [HPF] 0-4 [facility] Basophils Auto (Bld) [#/Vol] Ordered By: Enrique Lucas on 01-20-2023 Basophils (Bld) [#/Vol] 0.1 10*3/uL 0.0-0.2 [facility] Basophils/100 WBC Auto (Bld) Ordered By: Enrique Lucas on 01-20-2023 Basophils/100 WBC (Bld) 0.7 % . [facility] Bilirubin Test strip Ql (U)O rdered By: Enrique Lucas on 01-20-2023 Bilirubin Ql (U) Negative Negative [facility] C reactive protein [Mass/vol ume] in Serum or PlasmaOrdered By: Enrique Lucas on 01-20-2023 CRP [Mass/Vol] 0.5 mg/dL 0.0-0.5 [facility] C-Reactive Proteinon 023 C-Reactive Protein 0.5 mg/dL Normal 0.0-0.5 [facility] Comment on above: Result Comment: PERF ORMED BY: [place] [address] PATHOLOGIST [employer]RAILS DEVELOPER OLIMPIA MORA M.D. Performed By: #### B MP #### [place] [address] [place] Color Auto (U)Ordered By: Marybeth Lucas on 01-20-2023 Color (U) Yellow Yellow [facility] Complement C3on 01-20-2023 Complement C3 182 mg/dL High 82-167 [facility] Comment on above: Result Comment: Perf ormed at: - [facility] [address] [id number] Philosophy Faculty: Chris Urban PhD, Phone: [phone] Performed By: #### B MP #### [address] Complement C4on 01-20-2023 Complement C4 29 mg/dL Normal 12-38 [facility] Comment on above: Result Comment: PERF ORMED BY: [place] [address] PATHOLOGIST [employer]RAIL[employer] DEVELOPER OLIMPIA MORA M.D. Performed By: #### B MP #### [address] Complete Blood Count Auto Di ffon 01-20-2023 Basophils (Bld) [#/Vol] 0.1 10*3/uL Normal 0.0-0.2 [facility] Comment on above: Performed By: #### B MP #### [address] Basophils/100 WBC (Bld) 0.7 % Normal . [facility] Comment on above: Performed By: #### B MP #### [address] Eosinophils (Bld) [#/Vol] 0.2 10*3/uL Normal 0.0-0.45 [facility] Comment on above: Performed By: #### B MP #### [address] Eosinophils/100 WBC (Bld) 3.0 % Normal . [facility] Comment on above: Performed By: #### B MP #### [address] Erythrocyte distribution width (RBC) [Ratio] 13.0 % Normal 11.9-15.3 [facility] Comment on above: Performed By: #### B MP #### [address] Hematocrit (Bld) [Volume fraction] 41.5 % Normal 34.0-46.4 [facility] Comment on above: Performed By: #### B MP #### [address] Hemoglobin (Bld) [Mass/Vol] 14.0 g/dL Normal 11.8-15.4 [facility] Comment on above: Performed By: #### B MP #### [place] [address] [place] Lymphocytes (Bld) [#/Vol] 2.6 10*3/uL Normal 1.00-4.8 [facility] Comment on above: Performed By: #### B MP #### [address] Lymphocytes/100 WBC (Bld) 35.4 % Normal . [facility] Comment on above: Performed By: #### B MP #### [address] MCH (RBC) [Entitic mass] 30.2 pg Normal 24.7-34.3 [facility] Comment on above: Performed By: #### B MP #### [address] MCV (RBC) [Entitic vol] 89.4 fL Normal 80-100 [facility] Comment on above: Performed By: #### B MP #### [address] Mean Corpuscular HGB Conc 33.7 g/dL Normal 32.0-35.0 [facility] Comment on above: Performed By: #### B MP #### [address] Monocytes (Bld) [#/Vol] 0.4 10*3/uL Normal 0.0-0.8 [facility] Comment on above: Performed By: #### B MP #### [address] Monocytes/100 WBC (Bld) 5.3 % Normal . [facility] Comment on above: Performed By: #### B MP #### [address] Neutrophils (Bld) [#/Vol] 4.1 10*3/uL Normal 1.8-7.7 [facility] Comment on above: Performed By: #### B MP #### [address] Neutrophils/100 WBC (Bld) 55.6 % Normal . [facility] Comment on above: Performed By: #### B MP #### [address] NRBC% 0.1 /100{WBC} Normal 0-0.5 [facility] Comment on above: Performed By: #### B MP #### [address] Platelet mean volume (Bld) [Entitic vol] 8.5 fL Normal 6.3-10.7 [facility] Comment on above: Performed By: #### B MP #### [facility] [address] Platelets (Bld) [#/Vol] 253 10*3/uL Normal 150-450 [facility] Comment on above: Performed By: #### B MP #### [address] RBC (Bld) [#/Vol] 4.65 10*6/uL Normal 3.60-5.00 [facility] Comment on above: Performed By: #### B MP #### [address] WBC (Bld) [#/Vol] 7.4 10*3/uL Normal 3.8-11.6 [facility] Comment on above: Performed By: #### B MP #### [address] Creatinineon 01-20-2023 Creatinine [Mass/Vol] 0.70 mg/dL Normal 0.60-1.[address] [facility] Comment on above: Performed By: #### C 4, C3 #### [facility] , #### ADDONUAPLUS, CBC, CRP, CUU, CREAT, ESR #### [address] GFR/1.73 sq M.predicted MDRD (S/P/Bld) [Vol rate/Area] mL/min/{1.73_m2} Normal [facility] Comment on above: Performed By: #### C 4, C3 #### [facility] , #### ADDONUAPLUS, CBC, CRP, CUU, CREAT, ESR #### [address] Creatinine [Mass/volume] in Serum or PlasmaOrdered By: Enrique Lucas on 01-20-2023 Creatinine [Mass/Vol] 0.70 mg/dL 0.60-1.20 [facility] Dipstick and Microscopicon 1 03-22-2022 Appearance (U) Clear Normal Clear [facility] Comment on above: Order Comment: Name Collection Type:: Clean-Voided Midstream Performed By: #### C 4, C3 #### [facility] , #### ADDONUAPLUS, CBC, CRP, CUU, CREAT, ESR #### [facility] [address] [place] [address] Bacteria,Urine 1+ High None Seen [facility] Comment on above: Order Comment: Name Collection Type:: Clean-Voided Midstream Performed By: #### C 4, C3 #### [facility] , #### ADDONUAPLUS, CBC, CRP, CUU, CREAT, ESR #### [facility] [address] [place] [address] Bilirubin,Urine Negative Normal Negative [facility] Comment on above: Order Comment: Name Collection Type:: Clean-Voided Midstream Performed By: #### C 4, C3 #### [facility] , #### ADDONUAPLUS, CBC, CRP, CUU, CREAT, ESR #### [facility] [address] [place] [address] Color (U) Yellow Normal Yellow [facility] Comment on above: Order Comment: Name Collection Type:: Clean-Voided Midstream Performed By: #### C 4, C3 #### [facility] , #### ADDONUAPLUS, CBC, CRP, CUU, CREAT, ESR #### [facility] [address] [place] [address] [place] Glucose Ql (U) Normal Normal Normal [facility] Comment on above: Order Comment: Name Collection Type:: Clean-Voided Midstream Performed By: #### C 4, C3 #### [facility] , #### ADDONUAPLUS, CBC, CRP, CUU, CREAT, ESR #### [facility] [address] [place] [address] [place] Hyaline Casts,Urine None Seen Normal 0-8 [facility] Comment on above: Order Comment: Name Collection Type:: Clean-Voided Midstream Result Comment: PERF ORMED BY: [place] [address] PATHOLOGIST [employer]RAIL[employer] DEVELOPER OLIMPIA MORA M.D. Performed By: #### C 4, C3 #### [facility] , #### ADDONUAPLUS, CBC, CRP, CUU, CREAT, ESR #### [address] Ketones Ql (U) Negative Normal Negative [facility] Comment on above: Order Comment: Name Collection Type:: Clean-Voided Midstream Performed By: #### C 4, C3 #### [facility] , #### ADDONUAPLUS, CBC, CRP, CUU, CREAT, ESR #### [address] Leukocyte esterase Test strip Ql (U) 2+ High Negative [facility] Comment on above: Order Comment: Name Collection Type:: Clean-Voided Midstream Performed By: #### C 4, C3 #### [facility] , #### ADDONUAPLUS, CBC, CRP, CUU, CREAT, ESR #### [address] Nitrite,Urine Negative Normal Negative [facility] Comment on above: Order Comment: Name Collection Type:: Clean-Voided Midstream Performed By: #### C 4, C3 #### [facility] , #### ADDONUAPLUS, CBC, CRP, CUU, CREAT, ESR #### [facility] [address] [place] [address] Occult Blood,Urine Trace High Negative [facility] Comment on above: Order Comment: Name Collection Type:: Clean-Voided Midstream Performed By: #### C 4, C3 #### [facility] , #### ADDONUAPLUS, CBC, CRP, CUU, CREAT, ESR #### [address] pH (U) 6.0 [pH] Normal 5.0-9.0 [facility] Comment on above: Order Comment: Name Collection Type:: Clean-Voided Midstream Performed By: #### C 4, C3 #### [facility] , #### ADDONUAPLUS, CBC, CRP, CUU, CREAT, ESR #### [address] Protein,Urine Negative Normal Negative [facility] Comment on above: Order Comment: Name Collection Type:: Clean-Voided Midstream Performed By: #### C 4, C3 #### [facility] , #### ADDONUAPLUS, CBC, CRP, CUU, CREAT, ESR #### [address] RBC,Urine 10-19 High 0-4 [facility] Comment on above: Order Comment: Name Collection Type:: Clean-Voided Midstream Performed By: #### C 4, C3 #### [facility] , #### ADDONUAPLUS, CBC, CRP, CUU, CREAT, ESR #### [address] Specificy [place],Urine 1.016 Normal 1.001-1.03 0 [facility] Comment on above: Order Comment: Name Collection Type:: Clean-Voided Midstream Performed By: #### C 4, C3 #### [facility] , #### ADDONUAPLUS, CBC, CRP, CUU, CREAT, ESR #### [address] Squamous Epithelial Cell,Urine 3-4 High 0-2 [facility] Comment on above: Order Comment: Name Collection Type:: Clean-Voided Midstream Performed By: #### C 4, C3 #### [facility] , #### ADDONUAPLUS, CBC, CRP, CUU, CREAT, ESR #### [address] Urobilinogen,Urine Normal Normal Normal [facility] Comment on above: Order Comment: Name Collection Type:: Clean-Voided Midstream Performed By: #### C 4, C3 #### [facility] , #### ADDONUAPLUS, CBC, CRP, CUU, CREAT, ESR #### [address] WBC,Urine 5-9 High 0-4 [facility] Comment on above: Order Comment: Name Collection Type:: Clean-Voided Midstream Performed By: #### C 4, C3 #### [facility] , #### ADDONUAPLUS, CBC, CRP, CUU, CREAT, ESR #### [address] Eosinophils Auto (Bld) [#/Vo l]Ordered By: Enrique Lucas on 01-20-2023 Eosinophils (Bld) [#/Vol] 0.2 10*3/uL 0.0-0.45 [facility] Eosinophils/100 WBC Auto (Bl d)Ordered By: Enrique Lucas on 01-20-2023 Eosinophils/100 WBC (Bld) 3.0 % . [facility] Erythrocyte Sedimentation Ra jeniffer 01-20-2023 ESR (Bld) [Velocity] 13 mm/h Normal 0-19 [facility] Comment on above: Result Comment: PERF ORMED BY: [place] [address] PATHOLOGIST [employer]RAIL[employer] DEVELOPER OLIMPIA MORA M.D. Performed By: #### B MP #### [address] Erythrocyte distribution wid th Auto (RBC) [Ratio]Ordered By: Enrique Lucas on 01-20-2023 Erythrocyte distribution width (RBC) [Ratio] 13.0 % 11.9-15.3 [facility] Erythrocyte sedimentation ra te by Photometric methodOrdered By: Enrique Lucas on 01-20-2023 ESR Photometric method (Bld) [Velocity] 13 mm/hr 0-19 [facility] Hematocrit Auto (Bld) [Volum e fraction]Ordered By: Enrique Lucas on 01-20-2023 Hematocrit (Bld) [Volume fraction] 41.5 % 34.0-46.4 [facility] Hemoglobin [Mass/volume] in BloodOrdered By: Enrique Lucas on 01-20-2023 Hemoglobin (Bld) [Mass/Vol] 14.0 g/dL 11.8-15.4 [facility] Ketones Auto test strip (U) [Mass/Vol]Ordered By: Enrique Lucas on 01-20-2023 Ketones (U) [Mass/Vol] Negative Negative Fi [facility] - UrinalysisOrder ed By: Enrique Lucas on 01-20-2023 Hyaline casts LM Ql (Urine sed) None seen [LPF] 0-8 [facility] Leukocytes [#/volume] correc dave for nucleated erythrocytes in Blood by Automated counOrdered By: Enrique Lucas on 01-20-2023 WBC corrected for nucl RBC Auto (Bld) [#/Vol] 7.4 10*3/uL 3.8-11.6 [facility] Lymphocytes Auto (Bld) [#/Vo l]Ordered By: Enrique Lucas on 01-20-2023 Lymphocytes (Bld) [#/Vol] 2.6 10*3/uL 1.00-4.8 [facility] Lymphocytes/100 WBC Auto (Bl d)Ordered By: Enrique Lucas on 01-20-2023 Lymphocytes/100 WBC (Bld) 35.4 % . [facility] MCH Auto (RBC) [Entitic mass ]Ordered By: Enrique Lucas on 01-20-2023 MCH (RBC) [Entitic mass] 30.2 pg 24.7-34.3 [facility] MCHC Auto (RBC) [Mass/Vol]Or dered By: Enrique Lucas on 01-20-2023 MCHC (RBC) [Mass/Vol] 33.7 g/dL 32.0-35.[address] [facility] MCV Auto (RBC) [Entitic vol] Ordered By: Enrique Lucas on 01-20-2023 MCV (RBC) [Entitic vol] 89.4 fL 80-100 [facility] Monocytes Auto (Bld) [#/Vol] Ordered By: Enrique Lucas on 01-20-2023 Monocytes (Bld) [#/Vol] 0.4 10*3/uL 0.0-0.8 [facility] Monocytes/100 WBC Auto (Bld) Ordered By: Enrique Lucas on 01-20-2023 Monocytes/100 WBC (Bld) 5.3 % . [facility] Neutrophils Auto (Bld) [#/Vo l]Ordered By: Enrique Lucas on 01-20-2023 Neutrophils (Bld) [#/Vol] 4.1 10*3/uL 1.8-7.7 [facility] Neutrophils/100 WBC Auto (Bl d)Ordered By: Enrique Lucas on 01-20-2023 Neutrophils/100 WBC (Bld) 55.6 % . [facility] Nitrite Test strip Ql (U)Ord ered By: Enrique Lucas on 01-20-2023 Nitrite Ql (U) Negative Negative [facility] No Panel InformationOrdered By: Enrique Lucas on 01-20-2023 Estimated GFR (CKD-EPI) > 60.0 mL/Min [facility] Creatinine Clearance (Chem N/A [facility] Nucleated erythrocytes [Pres ence] in Blood by Automated countOrdered By: Enrique Lucas on 01-20-2023 Nucleated RBC Auto Ql (Bld) 0.1 /100{WBC} 0-0.5 [facility] Platelet mean volume Auto (B ld) [Entitic vol]Ordered By: Enrique Lucas on 01-20-2023 Platelet mean volume (Bld) [Entitic vol] 8.5 fL 6.3-10.7 [facility] Platelets Auto (Bld) [#/Vol] Ordered By: Enrique Lucas on 01-20-2023 Platelets (Bld) [#/Vol] 253 10*3/uL 150-450 [facility] Protein Auto test strip (U) [Mass/Vol]Ordered By: Enrique Lucas on 01-20-2023 Protein (U) [Mass/Vol] Negative Negative Fi [facility] RBC Auto (Bld) [#/Vol]Ordere d By: Enrique Lucas on 01-20-2023 RBC (Bld) [#/Vol] 4.65 10*6/uL 3.60-5.00 [facility] Specific gravity Auto test s trip (U) [Rel density]Ordered By: Enrique Lucas on 01-20-2023 Specific gravity (U) [Rel density] 1.016 1.001-1.03 0 [facility] Squamous epithelial cells de tection in urine sediment by light microscopyOrdered By: Enrique Lucas on 01-20-2023 Epithelial cells.squamous LM Ql (Urine sed) 3-4 [HPF] 0-2 [facility] Urine Cultureon 01-20-2023 Bacteria identified Cx Nom (U) 20,000 colonies/ml mixed bacterial skin contaminants 2 Days PERFORMED BY: [facility] [address] [place] [address] PATHOLOGIST JAVA [employer]RAIL[employer] DEVELOPER OLIMPIA MORA M.D. Normal [facility] Comment on above: Performed By: #### B MP #### [facility] [address] Urine bacteria detection by automated methodOrdered By: Enrique Lucas on 01-20-2023 Bacteria Auto Ql (U) 1+ None Seen [facility] Urine clarity by refractomet ry automatedOrdered By: Enrique Lucas on 01-20-2023 Clarity Refractometry automated (U) Clear Clear [facility] Urine glucose measurement by automated test strip (mass/volume)Ordered By: Enrique Lucas on 01-20-2023 Glucose Auto test strip (U) [Mass/Vol] Normal mg/dL Normal [facility] Urine hemoglobin detection b y automated test stripOrdered By: Enrique Lucas on 01-20-2023 Hemoglobin Auto test strip Ql (U) Trace Negative [facility] Urine leukocyte esterase det ection by automated test stripOrdered By: Enrique Lucas on 01-20-2023 Leukocyte esterase Auto test strip Ql (U) 2+ Negative [facility] Urobilinogen Auto test strip (U) [Mass/Vol]Ordered By: Enirque Lucas on 01-20-2023 Urobilinogen (U) [Mass/Vol] Normal mg/dL Normal [facility] WBC Auto (Bld) [#/Vol]Ordere d By: Enrique Lucas on 01-20-2023 WBC (Bld) [#/Vol] 7.4 10*3/uL 3.8-11.6 [facility] pH Auto test strip (U)Ordere d By: Enrique Lucas on 01-20-2023 pH (U) 6.0 [pH] 5.0-9.0 [facility] Office Visiton 01-09-2023 Follow-up visit [id number] Ada Kirkland 1990 F Date Provider Department Center 01/09/2023 Danilo6-ELANA RAMIREZ CARD [facility] Family History Problem Relation Age of Onset Heart attack Father 44 Coronary artery disease Father Clotting disorder Father Family Status - Relation Status Age at Father Alive Level of Service:21580 [place] OFFICE/OUTPATIENT ESTABLISHED MOD MDM 30-[address] [facility] HCG ( test) IA.rapi d Ql (U)Ordered By: LITA BLACKMAN on 12-29-2022 HCG ( test) Ql (U) Negative [facility] HCG,Urineon 12-29-2022 Beta HCG ( test) Ql (U) Negative Normal [facility] Comment on above: Result Comment: PERF ORMED BY: [address] [place] [address] PATHOLOGIST [employer]IL[employer] DEVELOPER OLIMPIA MORA M.D. Performed By: #### U HCG #### [address] Bin 12-29-2022 L ------ Specimen: [id number] Received: 12/29/22 Status: FADIA Vyaslaila Num: [id number] Spec Type: Surgical Subm Dr: Dasha Garcia DO Tissues: A Uterus w/ or w/o tubes ovaries except neoplastic or prolap (CERVIX, DARIO TU Procedures: , Gross/Micro L5 Age/ Patient Sex Location Account Attending Physician Morgan Kirkland 32/F [place] [id number] Dasha Garcia DO SPEC NUM: [id number] RECD: 12/29/22 STATUS: FADIA JUSTIN NUM: [id number] STEVAN: 12/29/[address]: Dasha Garcia DO ENTERED: 12/29/22 HIEN ZUÑIGA: SANJIV TYPE: Surgical DEPT: S ORDERED: , Gross/Micro L5 ORDERED: , Gross/Micro L5 Pathological Diagnosis Uterus, cervix, bilateral [...] left sided pelvic pain menorrhagia adenomyosis Specimen: [id number] Received: 12/29/22 Status: FADIA Espinosa Num: [id number] Spec Type: Surgical Subm Dr: Dasha Garcia DO Tissues: A Uterus w/ or w/o tubes ovaries except neoplastic or prolap (CERVIX, DARIO TU Procedures: , Gross/Micro L5 Patient: Morgan Kirkland [id number] (Continued) Specimen: [id number] Received: 12/29/22 (Continued) Signed (signature on file) Daniel Okeefe MD 12/30/222016 Specimen: [id number] Received: 12/29/22 Status: FADIA Espinosa Num: [id number] Spec Type: Surgical Subm Dr: Dasha Garcia, Tissues: A Uterus w/ or w/o tubes ovaries except neoplastic or prolap (CERVIX, DARIO TU Procedures: , Gross/Micro L5 Patient: Morgan Kirkland [id number] (Continued) Specimen: [id number] Received: 12/29/22 (Continued) Gross Description Received in [...] has a pinpoint lumen on cut section. Agriculture Technician sections are submitted in 8 cassettes as follows: A1 - Anterior cervix A2 - Posterior cervix A3-A4 - Anterior endomyometrium A5-A6 - Posterior endomyometrium A7 - Right fallopian tube A8 - Left fallopian tube Microscopic Description Eight H E slides reviewed. The microscopic examination confirms the diagnosis. CPT Codes 29525 Specimen: [id number] Received: 12/29/22 Status: FADIA Espinosa Num: [id number] Spec Type: Surgical Subm Dr: Dasha Garcia DO Tissues: A Uterus w/ or w/o tubes ovaries except neoplastic or prolap (CERVIX, DARIO TU Procedures: HE/12, Gross/Micro L (more content not included)... [facility] Activated partial thrombopla stin time (aPTT) in platelet poor plasma by coagulation aOrdered By: Dasha Garcia on 12-15-2022 aPTT Coag (PPP) [Time] 28.2 s 25.1-36.5 [facility] Comment on above: A hematocrit value g reater than 55% may lead to inaccurate results in coagulation testing. Patients having hematocrit values >55% require a special collection tube for coagulation studies. Please contact the laboratory at [phone] for redraw instructions. Basic Metabolic Panelon Anion gap [Moles/Vol] 8.5 mmol/L Normal 6.0-15.[address] [facility] Comment on above: Performed By: #### B MP #### [address] Calcium [Mass/Vol] 9.4 mg/dL Normal 8.6-10.3 [facility] Comment on above: Result Comment: PERF ORMED BY: [place] [address] PATHOLOGIST J[employer] GRAIL[employer] DEVELOPER OLIMPIA MORA M.D. Performed By: #### B MP #### [facility] [address] [place] [address] Chloride [Moles/Vol] 105 mmol/L Normal 98-107 [facility] Comment on above: Performed By: #### B MP #### [place] [address] [place] CO2 [Moles/Vol] 28.6 mmol/L Normal 21.0-31.0 [facility] Comment on above: Performed By: #### B MP #### [facility] [address] [place] [address] [place] Creatinine [Mass/Vol] 0.86 mg/dL Normal 0.60-1.[address] [facility] Comment on above: Performed By: #### B MP #### [place] [address] [place] GFR/1.73 sq M.predicted MDRD (S/P/Bld) [Vol rate/Area] mL/min/{1.73_m2} Normal [facility] Comment on above: Performed By: #### B MP #### [facility] [address] Glucose [Mass/Vol] 90 mg/dL Normal 70-100 [facility] Comment on above: Result Comment: [facility] Glucose Reference Range is dependent on time and content of last meal. Glucose of more than 200 mg/dL in a nonstressed, ambulatory subject supports the diagnosis of Diabetes Mellitus. ADA recommended reference range Performed By: #### B MP #### [facility] [address] [place] [address] Potassium [Moles/Vol] 4.1 mmol/L Normal 3.5-5.[address] [facility] Comment on above: Performed By: #### B MP #### [address] Sodium [Moles/Vol] 138 mmol/L Normal 136-145 [facility] Comment on above: Performed By: #### B MP #### [address] Urea nitrogen [Mass/Vol] 9 mg/dL Normal 7-25 [facility] Comment on above: Performed By: #### B MP #### [address] Basophils Auto (Bld) [#/Vol] Ordered By: Dasha Garcia on 12-15-2022 Basophils (Bld) [#/Vol] 0.0 10*3/uL 0.0-0.2 [facility] Basophils/100 WBC Auto (Bld) Ordered By: Dasha Garcia on 12-15-2022 Basophils/100 WBC (Bld) 0.6 % . [facility] Calcium [Mass/volume] in Ser um or PlasmaOrdered By: Dasha Garcia on 12-15-2022 Calcium [Mass/Vol] 9.4 mg/dL 8.6-10.3 [facility] Carbon dioxide, total [Moles /volume] in Serum or PlasmaOrdered By: Dasha Garcia on 12-15-2022 CO2 [Moles/Vol] 28.6 mmol/L 21.0-31.0 [facility] Chloride [Moles/volume] in S misael or PlasmaOrdered By: Dasha Garcia on 12-15-2022 Chloride [Moles/Vol] 105 mmol/L 98-107 [facility] Complete Blood Count Auto Di ffon 12-15-2022 Basophils (Bld) [#/Vol] 0.0 10*3/uL Normal 0.0-0.2 [facility] Comment on above: Result Comment: PERF ORMED BY: [place] [address] PATHOLOGIST J[employer] GRAIL[employer] DEVELOPER OLIMPIA MORA M.D. Performed By: #### C BC #### [address] Basophils/100 WBC (Bld) 0.6 % Normal . [facility] Comment on above: Performed By: #### C BC #### [address] Eosinophils (Bld) [#/Vol] 0.2 10*3/uL Normal 0.0-0.45 [facility] Comment on above: Performed By: #### C BC #### [address] Eosinophils/100 WBC (Bld) 1.9 % Normal . [facility] Comment on above: Performed By: #### C BC #### [address] Erythrocyte distribution width (RBC) [Ratio] 13.0 % Normal 11.9-15.3 [facility] Comment on above: Performed By: #### C BC #### [address] Hematocrit (Bld) [Volume fraction] 40.0 % Normal 34.0-46.4 [facility] Comment on above: Performed By: #### C BC #### [address] Hemoglobin (Bld) [Mass/Vol] 13.6 g/dL Normal 11.8-15.4 [facility] Comment on above: Performed By: #### C BC #### [facility] [address] Lymphocytes (Bld) [#/Vol] 2.3 10*3/uL Normal 1.00-4.8 [facility] Comment on above: Performed By: #### C BC #### [facility] [address] Lymphocytes/100 WBC (Bld) 28.8 % Normal . [facility] Comment on above: Performed By: #### C BC #### [facility] [address] MCH (RBC) [Entitic mass] 30.0 pg Normal 24.7-34.3 [facility] Comment on above: Performed By: #### C BC #### [address] MCV (RBC) [Entitic vol] 88.1 fL Normal 80-100 [facility] Comment on above: Performed By: #### C BC #### [address] Mean Corpuscular HGB Conc 34.0 g/dL Normal 32.0-35.0 [facility] Comment on above: Performed By: #### C BC #### [address] Monocytes (Bld) [#/Vol] 0.4 10*3/uL Normal 0.0-0.8 [facility] Comment on above: Performed By: #### C BC #### [place] [address] [place] Monocytes/100 WBC (Bld) 5.1 % Normal . [facility] Comment on above: Performed By: #### C BC #### [address] Neutrophils (Bld) [#/Vol] 5.2 10*3/uL Normal 1.8-7.7 [facility] Comment on above: Performed By: #### C BC #### [facility] [address] Neutrophils/100 WBC (Bld) 63.6 % Normal . [facility] Comment on above: Performed By: #### C BC #### [facility] [address] NRBC% 0.1 /100{WBC} Normal 0-0.5 [facility] Comment on above: Performed By: #### C BC #### [facility] [address] Platelet mean volume (Bld) [Entitic vol] 8.2 fL Normal 6.3-10.7 [facility] Comment on above: Performed By: #### C BC #### [facility] [address] Platelets (Bld) [#/Vol] 235 10*3/uL Normal 150-450 [facility] Comment on above: Performed By: #### C BC #### [facility] [address] RBC (Bld) [#/Vol] 4.53 10*6/uL Normal 3.60-5.00 [facility] Comment on above: Performed By: #### C BC #### [facility] [address] WBC (Bld) [#/Vol] 8.1 10*3/uL Normal 3.8-11.6 [facility] Comment on above: Performed By: #### C BC #### [address] Creatinine [Mass/volume] in Serum or PlasmaOrdered By: Dasha Garcia on 12-15-2022 Creatinine [Mass/Vol] 0.86 mg/dL 0.60-1.[address] [facility] Eosinophils Auto (Bld) [#/Vo l]Ordered By: Dasha Garcia on 12-15-2022 Eosinophils (Bld) [#/Vol] 0.2 10*3/uL 0.0-0.45 [facility] Eosinophils/100 WBC Auto (Bl d)Ordered By: Dasha Garcia on 12-15-2022 Eosinophils/100 WBC (Bld) 1.9 % . [facility] Erythrocyte distribution wid th Auto (RBC) [Ratio]Ordered By: Dasha Garcia on 12-15-2022 Erythrocyte distribution width (RBC) [Ratio] 13.0 % 11.9-15.3 [facility] Glucose [Mass/volume] in Ser um or PlasmaOrdered By: Dasha Garcia on 12-15-2022 Glucose [Mass/Vol] 90 mg/dL 70-100 [facility] Comment on above: ADA recommended refe rence rangeRandom Glucose Reference Range is dependent on time and content of last meal. Glucose of more than 200 mg/dL in a nonstressed, ambulatory subject supports the diagnosis of Diabetes Mellitus. Hematocrit Auto (Bld) [Volum e fraction]Ordered By: Dasha Garcia on 12-15-2022 Hematocrit (Bld) [Volume fraction] 40.0 % 34.0-46.4 [facility] Hemoglobin [Mass/volume] in BloodOrdered By: Dasha Garcia on 12-15-2022 Hemoglobin (Bld) [Mass/Vol] 13.6 g/dL 11.8-15.4 [facility] INR in Platelet poor plasma by Coagulation assayOrdered By: Dasha Garcia on 12-15-2022 INR Coag (PPP) [Relative time] 0.9 {INR} [facility] Comment on above: INR Therapeutic Rang e [...] RBC Auto (Bld) [#/Vol] 8.1 10*3/uL 3.8-11.6 [facility] Lymphocytes Auto (Bld) [#/Vo l]Ordered By: Dasha Garcia on 12-15-2022 Lymphocytes (Bld) [#/Vol] 2.3 10*3/uL 1.00-4.8 [facility] Lymphocytes/100 WBC Auto (Bl d)Ordered By: Dasha Garcia on 12-15-2022 Lymphocytes/100 WBC (Bld) 28.8 % . [facility] MCH Auto (RBC) [Entitic mass ]Ordered By: Dasha Garcia on 12-15-2022 MCH (RBC) [Entitic mass] 30.0 pg 24.7-34.3 [facility] MCHC Auto (RBC) [Mass/Vol]Or dered By: Dasha Garcia on 12-15-2022 MCHC (RBC) [Mass/Vol] 34.0 g/dL 32.0-35.[address] [facility] MCV Auto (RBC) [Entitic vol] Ordered By: Dasha Garcia on 12-15-2022 MCV (RBC) [Entitic vol] 88.1 fL 80-100 [facility] Monocytes Auto (Bld) [#/Vol] Ordered By: Dasha Garcia on 12-15-2022 Monocytes (Bld) [#/Vol] 0.4 10*3/uL 0.0-0.8 [facility] Monocytes/100 WBC Auto (Bld) Ordered By: Dasha Garcia on 12-15-2022 Monocytes/100 WBC (Bld) 5.1 % . [facility] Neutrophils Auto (Bld) [#/Vo l]Ordered By: Dasha Garcia on 12-15-2022 Neutrophils (Bld) [#/Vol] 5.2 10*3/uL 1.8-7.7 [facility] Neutrophils/100 WBC Auto (Bl d)Ordered By: Dasha Garcia on 12-15-2022 Neutrophils/100 WBC (Bld) 63.6 % . [facility] No Panel InformationOrdered By: Dasha Garcia on 12-15-2022 Estimated GFR (CKD-EPI) > 60.0 mL/Min [facility] Creatinine Clearance (Chem N/A [facility] Nucleated erythrocytes [Pres ence] in Blood by Automated countOrdered By: Dasha Garcia on 12-15-2022 Nucleated RBC Auto Ql (Bld) 0.1 /100{WBC} 0-0.5 [facility] PST Type and Screenon 2022 ABO and Rh group Nom (Bld) Blood group A Rh(D) positive Normal [facility] Comment on above: Order Comment: Date of Surgery: [id number] Partial Thromboplastin Timeo n 12-15-2022 aPTT Coag (Bld) [Time] 28.2 s Normal 25.1-36.5 [facility] Comment on above: Result Comment: A he matocrit value greater than 55% may lead to inaccurate results in coagulation testing. Patients having hematocrit values >55% require a special collection tube for coagulation studies. Please contact the laboratory at [phone] for redraw instructions. PERFORMED BY: [place] [address] PATHOLOGIST JAVA GRAILS DEVELOPER LOIMPIA MORA M.D. Performed By: #### P T, PTT #### [address] Platelet mean volume Auto (B ld) [Entitic vol]Ordered By: Dasha Garcia on 12-15-2022 Platelet mean volume (Bld) [Entitic vol] 8.2 fL 6.3-10.7 [facility] Platelets Auto (Bld) [#/Vol] Ordered By: Dasha Garcia on 12-15-2022 Platelets (Bld) [#/Vol] 235 10*3/uL 150-450 [facility] Potassium [Moles/volume] in Serum or PlasmaOrdered By: Dasha Garcia on 12-15-2022 Potassium [Moles/Vol] 4.1 mmol/L 3.5-5.[address] [facility] Prothrombin Time INRon 12-15 INR Coag (PPP) [Relative time] 0.9 {INR} Normal [facility] Comment on above: Result Comment: INR Therapeutic [...] Performed By: #### P T, PTT #### [facility] [address] [place] [id number] [facility] PT Coag (PPP) [Time] 11.3 s Normal 9.0-12.9 [facility] Comment on above: Result Comment: A he matocrit value greater than 55% may lead to inaccurate results in coagulation testing. Patients having hematocrit values >55% require a special collection tube for coagulation studies. Please contact the laboratory at [phone] for redraw instructions. Performed By: #### P T, PTT #### [facility] [address] [place] [address] [facility] Prothrombin time (PT)Ordered By: Dasha Garcia on 12-15-2022 PT Coag (PPP) [Time] 11.3 s 9.0-12.9 [facility] Comment on above: A hematocrit value g reater than 55% may lead to inaccurate results in coagulation testing. Patients having hematocrit values >55% require a special collection tube for coagulation studies. Please contact the laboratory at [phone] for redraw instructions. RBC Auto (Bld) [#/Vol]Ordere d By: Dasha Garcia on 12-15-2022 RBC (Bld) [#/Vol] 4.53 10*6/uL 3.60-5.00 [facility] Serum or plasma anion gap de terminationOrdered By: Dasha Garcia on 12-15-2022 Anion gap [Moles/Vol] 8.5 mmol/L 6.0-15.[address] [facility] Sodium [Moles/volume] in Ser um or PlasmaOrdered By: Dasha Garcia on 12-15-2022 Sodium [Moles/Vol] 138 mmol/L 136-145 [facility] Urea nitrogen [Mass/volume] in Serum or PlasmaOrdered By: Dasha Garcia on 12-15-2022 Urea nitrogen [Mass/Vol] 9 mg/dL 7-25 [facility] WBC Auto (Bld) [#/Vol]Ordere d By: Dasha Garcia on 12-15-2022 WBC (Bld) [#/Vol] 8.1 10*3/uL 3.8-11.6 [facility] 36on 10-24-2022 36 It is still connecti ng and sensing well, reviewed her loop. Likely breast tissue inhibiting being able to feel. For now we will ct monitor , since device is sensing ECG well it does not seem to be migrated. If she is concerned we can order a CXR just to confirm placement I am ok with that Normal [facility] Follow-Upon 09-10-2022 Follow-Up [id number] Ada Kirkland 1990 F Date Provider Department Center 09/10/2022 1596-ELANA RAMIREZ RADHA Nair Family History Problem Relation Age of Onset Heart attack Father 44 Coronary artery disease Father Clotting disorder Father Family Status - Relation Status Age at Father Alive Level of Service:11185 [place] OFFICE/OUTPATIENT ESTABLISHED MOD MDM 30-39 MIN Reason for Visit and Comments: Dizziness [194275] - Lightheaded and dizziness for a few weeks. Did stop last shiv. Is not as bad. Comes and goes- Wondering if she might have POTS. Family members has POTS. Has LOOP monitor in currently Normal [facility] Office Visiton 08-29-2022 Follow-up visit [id number] Ada Kirkland 1990 F Date Provider Department Center 08/29/2022 26625-HWSTPAEYPNAHID GRIFFIN RADHA Nair Family History Problem Relation Age of Onset Heart attack Father 44 Coronary artery disease Father Clotting disorder Father Family Status - Relation Status Age at Father Alive Level of Service:23406 [place] POSTOP FOLLOW UP VISIT RELATED TO ORIGINAL PX Normal [facility] HPon 08-21-[address] [facility] Electrophysiology Consult Note Reason for [...] joint swell (more content not included)... Normal [facility] CALCULI, URINARYon 3 2,8 Dihydroxyadenine Normal [facility] Comment on above: Performed By: #### C ALCULI #### [facility] [address] [address] [address] Lela Okeefe Ammonium Acid Urate Normal [facility] Comment on above: Performed By: #### C ALCULI #### [facility] [address] [address] [address] Lela Okeefe Bilirubin Ql (U) Normal [facility] Comment on above: Performed By: #### C ALCULI #### [facility] [address] [address] [address] Lela Okeefe Ca Oxalate Dihydrate 60 % [facility] Comment on above: Performed By: #### C ALCULI #### [facility] [address] [address] [address] Lela Okeefe CaHPO4 (Brushite) [facility] Comment on above: Performed By: #### C ALCULI #### [facility] [address] [address] [address] Lela Okeefe Calcium Bilirubinate Normal [facility] Comment on above: Performed By: #### C ALCULI #### [facility] [address] [address] [address] Lela Okeefe Calcium Carbonate [facility] Comment on above: Performed By: #### C ALCULI #### [facility] [address] [address] [address] Lela Okeefe Calcium Oxalate Monohydrate 30 % [facility] Comment on above: Performed By: #### C ALCULI #### [facility] [address] [address] [address] Lela Okeefe Calcium Palmitate Normal [facility] Comment on above: Performed By: #### C ALCULI #### [facility] [address] [address] [address] Lela Okeefe Calcium Phosphate [place] [facility] Comment on above: Performed By: #### C ALCULI #### [facility] [address] [address] [address] Lela Okeefe Calcium Stearate Normal [facility] Comment on above: Performed By: #### C ALCULI #### [facility] [address] [address] [address] Lela Okeefe Carbonate Apatite [facility] Comment on above: Performed By: #### C ALCULI #### [facility] [address] [address] [address] Lela Okeefe Cellular Material [facility] Comment on above: Performed By: #### C ALCULI #### [facility] [address] [address] [address] Lela Okeefe Cholesterol [facility] Comment on above: Performed By: #### C ALCULI #### [facility] [address] [address] [address] Lela Okeefe Color (U) Conroy [facility] Comment on above: Performed By: #### C ALCULI #### [facility] [address] [place] [address] Dr. Lela Okeefe Comment Comment [facility] Comment on above: Result Comment: Calc ium phosphate (hydroxyl form) includes hydroxyapatite, amorphous calcium phosphate, and whitlockite. Hydroxyapatite is the most common of the calcium phosphate salts found in human kidney stones. Performed By: #### C ALCULI #### [facility] [address] [place] [address] Dr. Lela Okeefe Result Comment: Calc ulus received wet. Wet calculi must be dried before analysis, which delays reporting of results. Leaving calculi wet (such as water, saline, blood, urine) may lead to changes in composition. Comment: Comment Normal [facility] Comment on above: Result Comment: Renita quintanilla questions regarding Calculi Analysis contact [facility] at: [phone]. Performed By: #### C ALCULI #### [facility] [address] [address] [address] Lela Okeefe Composition Comment [facility] Comment on above: Result Comment: Perc entage (Represents the % composition) Performed By: #### C ALCULI #### [facility] [address] [place] [address] Dr. Lela Okeefe Cystine [facility] Comment on above: Performed By: #### C ALCULI #### [facility] [address] [address] [address] Lela Okeefe Disclaimer: Comment Normal [facility] Comment on above: Result Comment: This test was developed and its performance characteristics determined by [facility]. It has not been cleared or approved by the Food and Drug Administration. Performed By: #### C ALCULI #### [facility] [address] [place] [address] Dr. Lela Okeefe Dried Blood Normal [facility] Comment on above: Performed By: #### C ALCULI #### [facility] [address] [place] [address] Dr. Lela Okeefe Drug or Metabolite Normal [facility] Comment on above: Performed By: #### C ALCULI #### [facility] [address] [place] [address] Dr. Lela Okeefe Hydroxyapatite 10 % Normal [facility] Comment on above: Performed By: #### C ALCULI #### [facility] [address] [place] [address] Dr. Lela Okeefe Mg NH4 PO4 (Struvite) Normal [facility] Comment on above: Performed By: #### C ALCULI #### [facility] [address] [place] [address] Dr. Lela Okeefe MgHPO4 (Newberyite) Normal [facility] Comment on above: Performed By: #### C ALCULI #### [facility] [address] [place] [address] Dr. Lela Okeefe Other component(s) Normal [facility] Comment on above: Performed By: #### C ALCULI #### [facility] [address] [place] [address] Dr. Lela Okeefe PDF . Normal [facility] Comment on above: Performed By: #### C ALCULI #### [facility] [address] [place] [address] Dr. Lela Okeefe Photo Comment Normal [facility] Comment on above: Result Comment: Phot ograph will follow under a separate cover Performed By: #### C ALCULI #### [facility] [address] [place] [address] Dr. Lela Okeefe Please note: Comment Normal [facility] Comment on above: Result Comment: Calc mirza report will follow via computer, mail or high school assistant football coach delivery. Performed By: #### C ALCULI #### [facility] [address] [address] [address] Lela Okeefe Size 5x5 Normal [facility] Comment on above: Result Comment: Sing le piece received. Performed By: #### C ALCULI #### [facility] [address] [address] [address] Lela Okeefe Sodium Acid Urate [facility] Comment on above: Performed By: #### C ALCULI #### [facility] [address] [address] [address] Lela Okeefe Source Comment [facility] Comment on above: Result Comment: Righ t Ureter Performed By: #### C ALCULI #### [facility] [address] [place] [address] Dr. Lela Okeefe Triamterene [facility] Comment on above: Performed By: #### C ALCULI #### [facility] [address] [address] [address] Lela Okeefe Uric Acid [facility] Comment on above: Performed By: #### C ALCULI #### [facility] [address] [address] [address] Lela Okeefe Uric Acid Dihydrate [facility] Comment on above: Performed By: #### C ALCULI #### [facility] [address] [address] [address] Lela Okeefe Weight 37 mg [facility] Comment on above: Performed By: #### C ALCULI #### [facility] [address] [address] [address] Lela Okeefe Xanthine [facility] Comment on above: Performed By: #### C ALCULI #### [facility] [address] [place] [address] Dr. Lela Okeefe Consultation Noteon 05-20 23 Consultation Note [id number]:127 Normal [facility] Consultation Note [id number]:127 Normal [facility] Operative Reporton Operative Report [id number]:127 Normal [facility] PREG HCG QUALon 07-17-2022 , QUAL Negative Normal NEGATIVE [facility] Comment on above: Performed By: #### C BC #### [facility] [address] [place] [address] Dr. Lela Okeefe Documentationon 07-16-2022 Documentation [id number] Bela,Ada coombs 1990 Date Provider Department Center 07/16/2022 ELANA MORALES [facility] Family History Problem Relation Age of Onset Heart attack Father 44 Coronary artery disease Father Clotting disorder Father Family Status - Relation Status Age at Father Alive Normal [facility] Lab Reportson 07-15-2022 Lab Reports [id number]:127 Normal [facility] Office Visiton 07-15-2022 Follow-up visit [id number] Ada Kirkland malvin 1990 Date Provider Department Center 07/15/2022 OG ERVIN [facility] Family History Problem Relation Age of Onset Heart attack Father 44 Coronary artery disease Father Clotting disorder Father Family Status - Relation Status Age at Father Alive Level of Service:77568 [place] OFFICE/OUTPATIENT ESTABLISHED MOD MDM 30-[address] [facility] CBC AUTO DIFFon 07-11-2022 BASO # 0.0 103/ul Normal 0.0-0.1 [facility] Comment on above: Performed By: #### C BC #### [facility] [address] [place] [address] Dr. Lela Okeefe Basophils/100 WBC (Bld) 0.5 % Normal 0.2-2.0 [facility] Comment on above: Performed By: #### C BC #### [facility] [address] [place] [address] Dr. Lela Okeefe EO # 0.1 103/ul Normal 0.0-0.7 [facility] Comment on above: Performed By: #### C BC #### [facility] [address] [place] [address] Dr. Lela Okeefe Eosinophils/100 WBC (Bld) 1.2 % Normal 0.9-7.0 [facility] Comment on above: Performed By: #### C BC #### [facility] [address] [place] [address] Dr. Lela Okeefe Erythrocyte distribution width (RBC) [Ratio] 12.3 % Normal 11.0-15.0 [facility] Comment on above: Performed By: #### C BC #### [facility] [address] [place] [address] Dr. Lela Okeefe Hematocrit (Bld) [Volume fraction] 41.7 % Normal 36.0-48.0 [facility] Comment on above: Performed By: #### C BC #### [facility] [address] [place] [address] Dr. Lela Okeefe Hemoglobin (Bld) [Mass/Vol] 14.1 g/dL Normal 12.0-16.0 [facility] Comment on above: Performed By: #### C BC #### [facility] [address] [place] [address] Dr. Lela Okeefe IG # 0.01 10e3/ul Normal 0.00-0.03 [facility] Comment on above: Performed By: #### C BC #### [facility] [address] [place] [address] Dr. Lela Okeefe IG % 0.2 % Normal 0.0-0.5 [facility] Comment on above: Performed By: #### C BC #### [facility] [address] [place] [address] Dr. Lela Okeefe LYMPH # 2.1 103/ul Normal 1.2-3.8 [facility] Comment on above: Performed By: #### C BC #### [facility] [address] [place] [address] Dr. Lela Okeefe Lymphocytes/100 WBC (Bld) 36.5 % Normal 20.5-60.0 [facility] Comment on above: Performed By: #### C BC #### [facility] [address] [place] [address] Dr. Lela Okeefe MANUAL DIFF REQ NO Normal [facility] Comment on above: Performed By: #### C BC #### [facility] [address] [place] [address] Dr. Lela Okeefe MCH (RBC) [Entitic mass] 30.2 pg Normal 26.7-34.0 [facility] Comment on above: Performed By: #### C BC #### [facility] [address] [place] [address] Dr. Lela Okeefe MCHC (RBC) [Mass/Vol] 33.8 g/dL Normal 29.9-35.2 [facility] Comment on above: Performed By: #### C BC #### [facility] [address] [place] [address] Dr. Lela Okeefe MCV (RBC) [Entitic vol] 89.3 fL Normal 81.0-99.0 [facility] Comment on above: Performed By: #### C BC #### [facility] [address] [place] [address] Dr. Lela Okefee MONO # 0.5 103/ul Normal 0.3-0.8 [facility] Comment on above: Performed By: #### C BC #### [facility] [address] [place] [address] Dr. Lela Okeefe Monocytes/100 WBC (Bld) 8.4 % Normal 1.7-12.0 [facility] Comment on above: Performed By: #### C BC #### [facility] [address] [place] [address] Dr. Lela Okeefe NEUT # 3.0 103/ul Normal 1.4-6.5 [facility] Comment on above: Performed By: #### C BC #### [facility] [address] [place] [address] Dr. Lela Okeefe Neutrophils/100 WBC (Bld) 53.2 % Normal 43.0-75.0 [facility] Comment on above: Performed By: #### C BC #### [facility] [address] [place] [address] Dr. Lela Okeefe Platelet mean volume (Bld) [Entitic vol] 9.7 fL Normal 9.5-13.5 [facility] Comment on above: Performed By: #### C BC #### [facility] [address] [place] [address] Dr. Lela Okeefe PLT 234 103/ul Normal 150-450 [facility] Comment on above: Performed By: #### C BC #### [facility] [address] [place] [address] Dr. Lela Okeefe RBC 4.67 106/ul Normal 4.20-5.40 [facility] Comment on above: Performed By: #### C BC #### [facility] [address] [place] [address] Dr. Lela Okeefe WBC 5.6 103/ul Normal 4.0-11.0 [facility] Comment on above: Performed By: #### C BC #### [facility] [address] [place] [address] Dr. Lela Okeefe PROF CHEM 8 (BAS METB)on Anion gap [Moles/Vol] 12.5 mmol/L Normal [facility] Comment on above: Performed By: #### C BC #### [facility] [address] [place] [address] Dr. Lela Okeefe Calcium [Mass/Vol] 9.1 mg/dL Normal 8.5-10.1 [facility] Comment on above: Performed By: #### C BC #### [facility] [address] [place] [address] Dr. Lela Okeefe Chloride [Moles/Vol] 105 mmol/L Normal 98-107 [facility] Comment on above: Performed By: #### C BC #### [facility] [address] [place] [address] Dr. Lela Okeefe CO2 [Moles/Vol] 28.7 mmol/L Normal 21.0-32.0 [facility] Comment on above: Performed By: #### C BC #### [facility] [address] [place] [address] Dr. Lela Okeefe Creatinine [Mass/Vol] 0.73 mg/dL Normal 0.55-1.02 [facility] Comment on above: Performed By: #### C BC #### [facility] [address] [address] [address] Lela Okeefe EGFR-AF CITIZEN OF [place] >60 Normal >=60 [facility] Comment on above: Performed By: #### C BC #### [facility] [address] [place] [address] Dr. Lela Okeefe EGFR-NON AF CITIZEN OF [place] >60 Normal >=60 [facility] Comment on above: Performed By: #### C BC #### [facility] [address] [place] [address] Dr. Lela Okeefe Glucose [Mass/Vol] 81 mg/dL Normal 74-106 [facility] Comment on above: Performed By: #### C BC #### [facility] [address] [place] [address] Dr. Leal Okeefe Potassium [Moles/Vol] 4.2 mmol/L Normal 3.5-5.1 [facility] Comment on above: Performed By: #### C BC #### [facility] [address] [place] [address] Dr. Lela Okeefe Sodium [Moles/Vol] 142 mmol/L Normal 136-145 [facility] Comment on above: Performed By: #### C BC #### [facility] [address] [place] [address] Dr. Lela Okeefe Urea nitrogen [Mass/Vol] 11.0 mg/dL Normal 7.0-18.0 [facility] Comment on above: Performed By: #### C BC #### [facility] [address] [place] [address] Dr. Lela Okeefe Urea nitrogen/Creatinine [Mass ratio] 15.1 mg/mg Normal [facility] Comment on above: Performed By: #### C BC #### [facility] [address] [place] [address] Dr. Lela Okeefe PROTIMEon 07-11-2022 INR Coag (PPP) [Relative time] 0.97 {INR} Normal [facility] Comment on above: Performed By: #### C BC #### [facility] [address] [place] [address] Dr. Lela Okeefe INR GUIDELINES SEE BELOW Normal [facility] Comment on above: Result Comment: BAIRON RED INR: 2.0 - 3.0 CONDITIONS NOT LISTED BELOW 2.5 - 3.5 FOR PROSTHETIC HEART VALVE REPLACEMENT 2.5 - 3.5 RECURRENT THROMBOSIS Performed By: #### C BC #### [facility] [address] [place] [address] Dr. Lela Okeefe PT Coag (PPP) [Time] 10.3 s Normal 9.0-11.6 [facility] Comment on above: Performed By: #### C BC #### [facility] [address] [place] [address] Dr. Lela Okeefe PTTon 07-11-2022 aPTT Coag (Bld) [Time] 27.9 s Normal 22.3-36.2 [facility] Comment on above: Performed By: #### C BC #### [facility] [address] [place] [address] Dr. Lela Okeefe Consent for Procedure/Surger yon 07-01-2022 Consent for Procedure/Surgery [id number]:127 Normal [facility] Pre-Certification Formon Pre-Certification Form [id number]#[id number]:127 Normal [facility] RAD - CT Reporton 06-30-2022 RAD - CT Report [id number]#1.00CD:127 Normal [facility] CT ABD/PELVIS WO CONon 06-02 CT [...] by: IRIS FUNEZ Date: 2022-06-02 15:16 Normal [facility] - MIS [id number]:127 Normal [facility] RAD - MIS [id number]:127 Normal [facility] XR KUB 1 VIEWon 05-20-2022 XR [...] by: ZAHRA MCCLENDON Date: 2022-05-20 14:39 Normal [facility] Ambulatory Visit Summaryon 0 05-19-2022 Ambulatory Visit Summary MORGAN KIRKLAND :1990 Visit Date:05/19/2022 Ambulatory Visit Instructions Your Diagnosis History of kidney stones Urinary frequency Urinary urgency Left sided abdominal pain Recurrent UTI Tests Performed Urnls Dip Stick Auto w/o Microscopy POC 73106 XR Abdomen 1 View -- Results Pending [...] Leiva When: Where: [facility] [address] [place] [address]- Medications What When Instructions Unchanged metoprolol (Lopressor 25 mg oral tablet) Contact prescribing physician if questions or concerns Test Results Urnls Dip Stick Auto w/o Microscopy POC [id number] (05/19/2022) Bilirubin Urine Dipstick - Negative Blood Urine Dipstick - Negative Glucose Urine Dipstick - Negative Ketones Urine Dipstick - Negative Leukocytes Urine Dipstick - Trace Nitrite Urine Dipstick - Negative Protein Urine Dipstick - Negative Specific [place] Urine Dipstick - <=1.005 Urine Appearance Urine [...] 2 days (more content not included)... Normal [facility] Patient Educationon 05-20-19 Patient Education Urology [...] Rhubarb. ? Beets. ? Potato chips and bolivian fries. ? Nuts. ? If you regularly take a diuretic medicine, make sure to eat at least 1?2 fruits or vegetables high in potassium each day. These include: ? Avocado. ? Banana. ? [place], prune, carrot, or tomato juice. ? Baked [...] Tigist zuñiga (more content not included)... Normal [facility] Urology Office/Clinic Noteon 05-19-2022 Urology Office/Clinic Note [...] URL [facility] [address], [place] [address]- Additional Instructions: f/u after KUB Patient Education [...] mRNA-1273 vac (more content not included)... Normal [facility] Comment on above: Result Comment: Elec tronically Signed By: Clark CLEMENS MD\.br\Date and Time Signed: 05/19/22 10:52 EST\.br\Electronically Co-Signed By: Mary Jane Sawyer\.br\Date and Time Co-Signed: 05/19/22 10:49 EST C3 and C4 COMPLEMENTon 04-15 Complement C3, Serum 191 mg/dL Critically high 82-167 [facility] Comment on above: Performed By: #### C BC #### [facility] [address] [place] [address] Dr. Lela Okeefe Complement C4, Serum 38 mg/dL Normal 12-38 [facility] Comment on above: Performed By: #### C BC #### [facility] [address] [address] [address] Lela Okeefe T3, TOTAL (TRIIODOTHYRONINE) on 04-13-2022 T3, TOTAL 109 ng/dL Normal 71-180 [facility] Comment on above: Performed By: #### C BC #### [facility] [address] [place] [address] Dr. Lela Okeefe US THYROIDon 04-13-2022 US [...] ZAHRA MCCLENDON Date: 2022-04-13 20:29 Normal [facility] CBC AUTO DIFFon 04-12-2022 BASO # 0.1 103/ul Normal 0.0-0.1 [facility] Comment on above: Performed By: #### C BC #### [facility] [address] [place] [address] Dr. Lela Okeefe Basophils/100 WBC (Bld) 0.6 % Normal 0.2-2.0 [facility] Comment on above: Performed By: #### C BC #### [facility] [address] [place] [address] Dr. Lela Okeeef EO # 0.0 103/ul Normal 0.0-0.7 [facility] Comment on above: Performed By: #### C BC #### [facility] [address] [place] [address] Dr. Lela Okeefe Eosinophils/100 WBC (Bld) 0.4 % Critically low 0.9-7.0 [facility] Comment on above: Performed By: #### C BC #### [facility] [address] [place] [address] Dr. Lela Okeefe Erythrocyte distribution width (RBC) [Ratio] 11.9 % Normal 11.0-15.0 [facility] Comment on above: Performed By: #### C BC #### [facility] [address] [place] [address] Dr. Lela Okeefe Hematocrit (Bld) [Volume fraction] 41.1 % Normal 36.0-48.0 [facility] Comment on above: Performed By: #### C BC #### [facility] [address] [place] [address] Dr. Lela Okeefe Hemoglobin (Bld) [Mass/Vol] 14.9 g/dL Normal 12.0-16.0 [facility] Comment on above: Performed By: #### C BC #### [facility] [address] [place] [address] Dr. Lela Okeefe IG # 0.03 10e3/ul Normal 0.00-0.03 [facility] Comment on above: Performed By: #### C BC #### [facility] [address] [place] [address] Dr. Lela Okeefe IG % 0.3 % Normal 0.0-0.5 [facility] Comment on above: Performed By: #### C BC #### [facility] [address] [place] [address] Dr. Lela Okeefe LYMPH # 1.1 103/ul Critically low 1.2-3.8 [facility] Comment on above: Performed By: #### C BC #### [facility] [address] [place] [address] Dr. Lela Okeefe Lymphocytes/100 WBC (Bld) 12.6 % Critically low 20.5-60.0 [facility] Comment on above: Performed By: #### C BC #### [facility] [address] [place] [address] Dr. Lela Okeefe MANUAL DIFF REQ NO Normal [facility] Comment on above: Performed By: #### C BC #### [facility] [address] [place] [address] Dr. Lela Okeefe MCH (RBC) [Entitic mass] 29.6 pg Normal 26.7-34.0 [facility] Comment on above: Performed By: #### C BC #### [facility] [address] [place] [address] Dr. Lela Okeefe MCHC (RBC) [Mass/Vol] 36.3 g/dL Critically high 29.9-35.2 [facility] Comment on above: Performed By: #### C BC #### [facility] [address] [place] [address] Dr. Lela Okeefe MCV (RBC) [Entitic vol] 81.7 fL Normal 81.0-99.0 [facility] Comment on above: Performed By: #### C BC #### [facility] [address] [place] [address] Dr. Lela Okeefe MONO # 0.9 103/ul Critically high 0.3-0.8 [facility] Comment on above: Performed By: #### C BC #### [facility] [address] [place] [address] Dr. Lela Okeefe Monocytes/100 WBC (Bld) 10.0 % Normal 1.7-12.0 [facility] Comment on above: Performed By: #### C BC #### [facility] [address] [place] [address] Dr. Lela Okeefe NEUT # 6.8 103/ul Critically high 1.4-6.5 [facility] Comment on above: Performed By: #### C BC #### [facility] [address] [place] [address] Dr. Lela Okeefe Neutrophils/100 WBC (Bld) 76.1 % Critically high 43.0-75.0 [facility] Comment on above: Performed By: #### C BC #### [facility] [address] [place] [address] Dr. Lela Okeefe Platelet mean volume (Bld) [Entitic vol] 9.5 fL Normal 9.5-13.5 [facility] Comment on above: Performed By: #### C BC #### [facility] [address] [place] [address] Dr. Lela Okeefe PLT 232 103/ul Normal 150-450 [facility] Comment on above: Performed By: #### C BC #### [facility] [address] [place] [address] Dr. Lela Okeefe RBC 5.03 106/ul Normal 4.20-5.40 [facility] Comment on above: Performed By: #### C BC #### [facility] [address] [place] [address] Dr. Lela Okeefe WBC 9.0 103/ul Normal 4.0-11.0 [facility] Comment on above: Performed By: #### C BC #### [facility] [address] [place] [address] Dr. Lela Okeefe CPKon 04-12-2022 CK [Catalytic activity/Vol] 43 U/L Normal 26-192 [facility] Comment on above: Performed By: #### C BC #### [facility] [address] [place] [address] Dr. Lela Okeefe CREATININEon 04-12-2022 Creatinine [Mass/Vol] 0.85 mg/dL Normal 0.55-1.02 [facility] Comment on above: Performed By: #### C BC #### [facility] [address] [place] [address] Dr. Lela Okeefe EGFR-AF CITIZEN OF [place] >60 Normal >=60 [facility] Comment on above: Performed By: #### C BC #### [facility] [address] [place] [address] Dr. Lela Okeefe EGFR-NON AF CITIZEN OF [place] >60 Normal >=60 [facility] Comment on above: Performed By: #### C BC #### [facility] [address] [place] [address] Dr. Lela Okeefe SED RATE WESTERGRENon 2022 SED RATE 53 mm/hr Critically high <=20 [facility] Comment on above: Performed By: #### C BC #### [facility] [address] [place] [address] Dr. Lela Okeefe UA RANDOM W/MICROSCOPICon BACTERIA NONE SEEN Normal NONE SEEN [facility] Comment on above: Performed By: #### U AMIC #### [facility] [address] [place] [address] Dr. Lela Okeefe Bilirubin Ql (U) Negative Normal NEGATIVE [facility] Comment on above: Performed By: #### U AMIC #### [facility] [address] [place] [address] Dr. Lela Okeefe CAST NONE SEEN Normal NONE SEEN [facility] Comment on above: Performed By: #### U AMIC #### [facility] [address] [place] [address] Dr. Lela Okeefe Clarity (U) CLEAR Normal CLEAR [facility] Comment on above: Performed By: #### U AMIC #### [facility] [address] [place] [address] Dr. Lela Okeefe Color (U) YELLOW Normal YELLOW [facility] Comment on above: Performed By: #### U AMIC #### [facility] [address] [place] [address] Dr. Lela Okeefe Crystals LM Nom (Urine sed) NONE SEEN Normal NONE SEEN [facility] Comment on above: Performed By: #### U AMIC #### [facility] [address] [place] [address] Dr. Lela Okeefe Epithelial cells LM Ql (Urine sed) FEW Abnormal NONE SEEN /RARE [facility] Comment on above: Performed By: #### U AMIC #### [facility] [address] [address] [address] Lela Okeefe Glucose Ql (U) Negative Normal NEGATIVE [facility] Comment on above: Performed By: #### U AMIC #### [facility] [address] [address] [address] Lela Okeefe Hemoglobin Ql (U) Negative Normal NEGATIVE [facility] Comment on above: Performed By: #### U AMIC #### [facility] [address] [address] [address] Lela Okeefe Ketones Ql (U) Negative Normal NEGATIVE [facility] Comment on above: Performed By: #### U AMIC #### [facility] [address] [address] [address] Lela Okeefe LEUKOCYTES Negative Normal NEGATIVE [facility] Comment on above: Performed By: #### U AMIC #### [facility] [address] [place] [address] Dr. Lela Okeefe MUCOUS TRACE Abnormal NONE SEEN [facility] Comment on above: Performed By: #### U AMIC #### [facility] [address] [place] [address] Dr. Lela Okeefe Nitrite Ql (U) Negative Normal NEGATIVE [facility] Comment on above: Performed By: #### U AMIC #### [facility] [address] [place] [address] Dr. Lela Okeefe pH (U) 6.0 [pH] Normal 5-9 [facility] Comment on above: Performed By: #### U AMIC #### [facility] [address] [place] [address] Dr. Lela Okeefe RBC 0-2 Normal 0-2 [facility] Comment on above: Performed By: #### U AMIC #### [facility] [address] [place] [address] Dr. Lela Okeefe SPEC GRAVITY 1.020 Normal 1.005-<=1. 025 [facility] Comment on above: Performed By: #### U AMIC #### [facility] [address] [place] [address] Dr. Lela Okeefe UA PROTEIN Negative Normal NEGATIVE/ TRACE [facility] Comment on above: Performed By: #### U AMIC #### [facility] [address] [address] [address] Lela Okeefe Urobilinogen Qn (U) 0.2 {Fidelia'U}/dL Normal 0.2 - 1. 0 [facility] Comment on above: Performed By: #### U AMIC #### [facility] [address] [address] [address] Lela Okeefe WBC NONE SEEN Normal NONE SEEN [facility] Comment on above: Performed By: #### U AMIC #### [facility] [address] [place] [address] Dr. Lela Okeefe CBC AUTO DIFFon 04-10-2022 BASO # 0.0 103/ul Normal 0.0-0.1 [facility] Comment on above: Performed By: #### C BC #### [facility] [address] [place] [address] Dr. Lela Okeefe Basophils/100 WBC (Bld) 0.3 % Normal 0.2-2.0 [facility] Comment on above: Performed By: #### C BC #### [facility] [address] [place] [address] Dr. Lela Okeefe EO # 0.0 103/ul Normal 0.0-0.7 [facility] Comment on above: Performed By: #### C BC #### [facility] [address] [place] [address] Dr. Lela Okeefe Eosinophils/100 WBC (Bld) 0.1 % Critically low 0.9-7.0 [facility] Comment on above: Performed By: #### C BC #### [facility] [address] [place] [address] Dr. Lela Okeefe Erythrocyte distribution width (RBC) [Ratio] 11.9 % Normal 11.0-15.0 [facility] Comment on above: Performed By: #### C BC #### [facility] [address] [place] [address] Dr. Lela Okeefe Hematocrit (Bld) [Volume fraction] 46.1 % Normal 36.0-48.0 [facility] Comment on above: Performed By: #### C BC #### [facility] [address] [place] [address] Dr. Lela Okeefe Hemoglobin (Bld) [Mass/Vol] 14.5 g/dL Normal 12.0-16.0 [facility] Comment on above: Performed By: #### C BC #### [facility] [address] [place] [address] Dr. Lela Okeefe IG # 0.01 10e3/ul Normal 0.00-0.03 [facility] Comment on above: Performed By: #### C BC #### [facility] [address] [place] [address] Dr. Lela Okeefe IG % 0.1 % Normal 0.0-0.5 [facility] Comment on above: Performed By: #### C BC #### [facility] [address] [place] [address] Dr. Lela kOeefe LYMPH # 1.1 103/ul Critically low 1.2-3.8 [facility] Comment on above: Performed By: #### C BC #### [facility] [address] [place] [address] Dr. Lela Okeefe Lymphocytes/100 WBC (Bld) 11.7 % Critically low 20.5-60.0 [facility] Comment on above: Performed By: #### C BC #### [facility] [address] [place] [address] Dr. Lela Okeefe MANUAL DIFF REQ NO Normal [facility] Comment on above: Performed By: #### C BC #### [facility] [address] [place] [address] Dr. Lela Okeefe MCH (RBC) [Entitic mass] 29.8 pg Normal 26.7-34.0 [facility] Comment on above: Performed By: #### C BC #### [facility] [address] [place] [address] Dr. Lela Okeefe MCHC (RBC) [Mass/Vol] 31.5 g/dL Normal 29.9-35.2 [facility] Comment on above: Performed By: #### C BC #### [facility] [address] [address] [address] Lela Okeefe MCV (RBC) [Entitic vol] 94.7 fL Normal 81.0-99.0 [facility] Comment on above: Performed By: #### C BC #### [facility] [address] [address] [address] Lela Okeefe MONO # 0.8 103/ul Normal 0.3-0.8 [facility] Comment on above: Performed By: #### C BC #### [facility] [address] [place] [address] Dr. Lela Okeefe Monocytes/100 WBC (Bld) 7.9 % Normal 1.7-12.0 [facility] Comment on above: Performed By: #### C BC #### [facility] [address] [place] [address] Dr. Lela Okeefe NEUT # 7.7 103/ul Critically high 1.4-6.5 [facility] Comment on above: Performed By: #### C BC #### [facility] [address] [place] [address] Dr. Lela Okeefe Neutrophils/100 WBC (Bld) 79.9 % Critically high 43.0-75.0 [facility] Comment on above: Performed By: #### C BC #### [facility] [address] [place] [address] Dr. Lela Okeefe Platelet mean volume (Bld) [Entitic vol] 10.2 fL Normal 9.5-13.5 [facility] Comment on above: Performed By: #### C BC #### [facility] [address] [place] [address] Dr. Lela Okeefe PLT 230 103/ul Normal 150-450 [facility] Comment on above: Performed By: #### C BC #### [facility] [address] [place] [address] Dr. Lela Okeefe RBC 4.87 106/ul Normal 4.20-5.40 [facility] Comment on above: Performed By: #### C BC #### [facility] [address] [place] [address] Dr. Lela Okeefe WBC 9.6 103/ul Normal 4.0-11.0 [facility] Comment on above: Performed By: #### C BC #### [facility] [address] [place] [address] Dr. Lela Okeefe FREE T3on 04-10-2022 FREE T3 2.59 pg/mlL Normal 2.18-3.98 [facility] Comment on above: Performed By: #### C BC #### [facility] [address] [place] [address] Dr. Lela Okeefe FREE T4on 04-10-2022 Free T4 [Mass/Vol] 1.00 ng/dL Normal 0.76-1.46 [facility] Comment on above: Performed By: #### F T4 #### [facility] [address] [place] [address] Dr. Lela Okeefe PROF CHEM 8 (BAS METB)on Anion gap [Moles/Vol] 12.3 mmol/L Normal [facility] Comment on above: Performed By: #### B MP, TSH #### [facility] [address] [place] [address] Dr. Lela Okeefe Calcium [Mass/Vol] 9.4 mg/dL Normal 8.5-10.1 [facility] Comment on above: Performed By: #### B MP, TSH #### [facility] [address] [place] [address] Dr. Lela Okeefe Chloride [Moles/Vol] 102 mmol/L Normal 98-107 [facility] Comment on above: Performed By: #### B MP, TSH #### [facility] [address] [place] [address] Dr. Lela Okeefe CO2 [Moles/Vol] 28.3 mmol/L Normal 21.0-32.0 [facility] Comment on above: Performed By: #### B MP, TSH #### [facility] [address] [place] [address] Dr. Lela Okeefe Creatinine [Mass/Vol] 0.77 mg/dL Normal 0.55-1.02 [facility] Comment on above: Performed By: #### B MP, TSH #### [facility] [address] [address] [address] Lela Okeefe EGFR-AF CITIZEN OF [place] >60 Normal >=60 [facility] Comment on above: Performed By: #### B MP, TSH #### [facility] [address] [address] [address] Lela Okeefe EGFR-NON AF CITIZEN OF [place] >60 Normal >=60 [facility] Comment on above: Performed By: #### B MP, TSH #### [facility] [address] [address] [address] Lela Okeefe Glucose [Mass/Vol] 101 mg/dL Normal 74-106 [facility] Comment on above: Performed By: #### B MP, TSH #### [facility] [address] [place] [address] Dr. Lela Okeefe Potassium [Moles/Vol] 4.6 mmol/L Normal 3.5-5.1 [facility] Comment on above: Performed By: #### B MP, TSH #### [facility] [address] [address] [address] Lela Okeefe Sodium [Moles/Vol] 138 mmol/L Normal 136-145 [facility] Comment on above: Performed By: #### B MP, TSH #### [facility] [address] [address] [address] Lela Okeefe Urea nitrogen [Mass/Vol] 11.0 mg/dL Normal 7.0-18.0 [facility] Comment on above: Performed By: #### B MP, TSH #### [facility] [address] [address] [address] Lela Okeefe Urea nitrogen/Creatinine [Mass ratio] 14.3 mg/mg Normal [facility] Comment on above: Performed By: #### B MP, TSH #### [facility] [address] [address] [address] Lela Okeefe TSHon 04-10-2022 TSH 0.346 uIU/mL Critically low 0.358-3.74 0 [facility] Comment on above: Performed By: #### B MP, [facility] #### [facility] [address] [address] [address] Lela Okeefe ECHOCARDIO M/2D COMPLETEon 1 ECHOCARDIO M/2D COMPLETE Patient: MORGAN KIRKLAND Exam Date: 12/24/2021 : 1990 Gender:F Ordering : ROYER DINH Admission #: [id number] Family : DR DAVID NEWBERRY M.D. Order #: [id number] CLICK HERE TO VIEW EXAM ECHOCARDIOGRAM REPORT [...] M.D. on 12/24/2021 at 15:14 Normal [facility] CBC AUTO DIFFon 11-23-2021 BASO # 0.0 103/ul Normal 0.0-0.1 [facility] Comment on above: Performed By: #### C BC #### [facility] [address] [place] [address] Dr. Lela Okeefe Basophils/100 WBC (Bld) 0.4 % Normal 0.2-2.0 [facility] Comment on above: Performed By: #### C BC #### [facility] [address] [place] [address] Dr. Lela Okeefe EO # 0.1 103/ul Normal 0.0-0.7 [facility] Comment on above: Performed By: #### C BC #### [facility] [address] [place] [address] Dr. Lela Okeefe Eosinophils/100 WBC (Bld) 1.4 % Normal 0.9-7.0 [facility] Comment on above: Performed By: #### C BC #### [facility] [address] [place] [address] Dr. Lela Okeefe Erythrocyte distribution width (RBC) [Ratio] 12.0 % Normal 11.0-15.0 [facility] Comment on above: Performed By: #### C BC #### [facility] [address] [place] [address] Dr. Lela Okeefe Hematocrit (Bld) [Volume fraction] 43.0 % Normal 36.0-48.0 [facility] Comment on above: Performed By: #### C BC #### [facility] [address] [place] [address] Dr. Lela Okeefe Hemoglobin (Bld) [Mass/Vol] 14.4 g/dL Normal 12.0-16.0 [facility] Comment on above: Performed By: #### C BC #### [facility] [address] [place] [address] Dr. Lela Okeefe IG # 0.02 10e3/ul Normal 0.00-0.03 [facility] Comment on above: Performed By: #### C BC #### [facility] [address] [place] [address] Dr. Lela Okeefe IG % 0.3 % Normal 0.0-0.5 [facility] Comment on above: Performed By: #### C BC #### [facility] [address] [place] [address] Dr. Lela Okeefe LYMPH # 2.1 103/ul Normal 1.2-3.8 [facility] Comment on above: Performed By: #### C BC #### [facility] [address] [place] [address] Dr. Lela Okeefe Lymphocytes/100 WBC (Bld) 29.2 % Normal 20.5-60.0 [facility] Comment on above: Performed By: #### C BC #### [facility] [address] [place] [address] Dr. Lela Okeefe MANUAL DIFF REQ NO Normal [facility] Comment on above: Performed By: #### C BC #### [facility] [address] [place] [address] Dr. Lela Okeefe MCH (RBC) [Entitic mass] 29.7 pg Normal 26.7-34.0 [facility] Comment on above: Performed By: #### C BC #### [facility] [address] [place] [address] Dr. Lela Okeefe MCHC (RBC) [Mass/Vol] 33.5 g/dL Normal 29.9-35.2 [facility] Comment on above: Performed By: #### C BC #### [facility] [address] [place] [address] Dr. Lela Okeefe MCV (RBC) [Entitic vol] 88.7 fL Normal 81.0-99.0 [facility] Comment on above: Performed By: #### C BC #### [facility] [address] [place] [address] Dr. Lela Okeefe MONO # 0.5 103/ul Normal 0.3-0.8 [facility] Comment on above: Performed By: #### C BC #### [facility] [address] [place] [address] Dr. Lela Okeefe Monocytes/100 WBC (Bld) 6.9 % Normal 1.7-12.0 [facility] Comment on above: Performed By: #### C BC #### [facility] [address] [place] [address] Dr. Lela Okeefe NEUT # 4.4 103/ul Normal 1.4-6.5 [facility] Comment on above: Performed By: #### C BC #### [facility] [address] [place] [address] Dr. Lela Okeefe Neutrophils/100 WBC (Bld) 61.8 % Normal 43.0-75.0 [facility] Comment on above: Performed By: #### C BC #### [facility] [address] [place] [id number] Dr. Lela Okeefe Platelet mean volume (Bld) [Entitic vol] 9.3 fL Critically low 9.5-13.5 [facility] Comment on above: Performed By: #### C BC #### [facility] [address] [place] [address] Dr. Lela Okeefe PLT 239 103/ul Normal 150-450 [facility] Comment on above: Performed By: #### C BC #### [facility] [address] [place] [address] Dr. Lela Okeefe RBC 4.85 106/ul Normal 4.20-5.40 [facility] Comment on above: Performed By: #### C BC #### [facility] [address] [place] [address] Dr. Lela Okeefe WBC 7.1 103/ul Normal 4.0-11.0 [facility] Comment on above: Performed By: #### C BC #### [facility] [address] [place] [address] Dr. Lela Okeefe LIPID PROFILEon 11-23-2021 CHOL-HDL RATIO NORM SEE BELOW Normal [facility] Comment on above: Result Comment: 3.3 - 4.4 LOW RISK 4.4 - 7.1 AVERAGE RISK 7.1 - 11.0 MODERATE RISK >11.0 HIGH RISK Performed By: #### C BC #### [facility] [address] [place] [address] Dr. Lela Okeefe Cholesterol [Mass/Vol] 177 mg/dL Normal <=200 [facility] Comment on above: Performed By: #### C BC #### [facility] [address] [place] [address] Dr. Lela Okeefe Cholesterol in HDL [Mass/Vol] 38 mg/dL Critically low 40-60 [facility] Comment on above: Performed By: #### C BC #### [facility] [address] [place] [address] Dr. Lela Okeefe Cholesterol in LDL [Mass/Vol] 121.6 mg/dL Normal [facility] Comment on above: Performed By: #### C BC #### [facility] [address] [place] [address] Dr. Lela Okeefe Cholesterol.total/Chol esterol in HDL [Mass ratio] 4.7 {ratio} Normal [facility] Comment on above: Performed By: #### C BC #### [facility] [address] [address] [address] Lela Okeefe HDL NORMAL > or = 60 mg/dl - LO W CARDIOVASCULAR RISK <40 mg/dl - HIGH CARDIOVASCULAR RISK Normal [facility] Comment on above: Performed By: #### C BC #### [facility] [address] [address] [address] Lela Okeefe LDL CALC NORMAL SEE BELOW Normal [facility] Comment on above: Result Comment: <100 mg/dl OPTIMAL 100 - 129 mg/dl NEAR OR ABOVE OPTIMAL 130 - 159 mg/dl BORDERLINE HIGH 160 - 189 mg/dl HIGH >190 mg/dl VERY HIGH Performed By: #### C BC #### [facility] [address] [place] [address] Dr. Lela Okeefe Triglyceride [Mass/Vol] 87 mg/dL Normal <=150 [facility] Comment on above: Performed By: #### C BC #### [facility] [address] [place] [address] Dr. Lela Okeefe VLDL CALC 17.4 mg/dL Normal [facility] Comment on above: Performed By: #### C BC #### [facility] [address] [place] [address] Dr. Lela Okeefe PROF CHEM 8 (BAS METB)on Anion gap [Moles/Vol] 9.2 mmol/L Normal [facility] Comment on above: Performed By: #### B MP, TSH, LIPID #### [facility] [address] [place] [address] Dr. Lela Okeefe Calcium [Mass/Vol] 8.9 mg/dL Normal 8.5-10.1 [facility] Comment on above: Performed By: #### B MP, TSH, LIPID #### [facility] [address] [place] [address] Dr. Lela Okeefe Chloride [Moles/Vol] 105 mmol/L Normal 98-107 [facility] Comment on above: Performed By: #### B MP, TSH, LIPID #### [facility] [address] [address] [address] Lela Okeefe CO2 [Moles/Vol] 28.8 mmol/L Normal 21.0-32.0 [facility] Comment on above: Performed By: #### B MP, TSH, LIPID #### [facility] [address] [address] [address] Lela Okeefe Creatinine [Mass/Vol] 0.77 mg/dL Normal 0.55-1.02 [facility] Comment on above: Performed By: #### B MP, TSH, LIPID #### [facility] [address] [address] [address] Lela Okeefe EGFR-AF CITIZEN OF [place] >60 Normal >=60 [facility] Comment on above: Performed By: #### B MP, TSH, LIPID #### [facility] [address] [address] [address] Lela Okeefe EGFR-NON AF CITIZEN OF [place] >60 Normal >=60 [facility] Comment on above: Performed By: #### B MP, TSH, LIPID #### [facility] [address] [address] [address] Lela Okeefe Glucose [Mass/Vol] 103 mg/dL Normal 74-106 [facility] Comment on above: Performed By: #### B MP, TSH, LIPID #### [facility] [address] [address] [address] Lela Okeefe Potassium [Moles/Vol] 4.0 mmol/L Normal 3.5-5.1 [facility] Comment on above: Performed By: #### B MP, TSH, LIPID #### [facility] [address] [address] [address] Lela Okeefe Sodium [Moles/Vol] 139 mmol/L Normal 136-145 [facility] Comment on above: Performed By: #### B MP, TSH, LIPID #### [facility] [address] [address] [address] Lela Okeefe Urea nitrogen [Mass/Vol] 10.0 mg/dL Normal 7.0-18.0 [facility] Comment on above: Performed By: #### B MP, TSH, LIPID #### [facility] [address] [place], [place] [address] Dr. Lela Okeefe Urea nitrogen/Creatinine [Mass ratio] 13.0 mg/mg Normal [facility] Comment on above: Performed By: #### B MP, TSH, LIPID #### [facility] [address] [place], [place] [address] Dr. Lela Okeefe TSHon 11-23-2021 TSH 1.092 uIU/mL Normal 0.358-3.74 0 [facility] Comment on above: Performed By: #### C BC #### [facility] [address] [place], [place] [address] Dr. Lela Okeefe PROGRESSon 03-29-2019 PROGRESS HNO ID: [id number] Author: Jose Olea Service: ? Author Type: Physician Type: Progress Notes Filed: 03/29/2019 10:25 AM Note Text: Patient here for ultrasound. See ultrasound report for details. Jose Olea MD [facility] PROGRESSon 03-15-2019 PROGRESS HNO ID: [id number] Author: Dasha Ibanez Service: ? Author Type: [...] normal. See ultrasound report Dasha Ibanez MD Normal [facility] PROGRESSon 03-01-2019 PROGRESS HNO ID: [id number] Author: Tobias Yang Service: ? Author Type: [...] report available in the Imaging tab in [employer] ? Tobias Yang MD [facility] PROGRESSon 02-16-2019 PROGRESS HNO ID: [id number] Author: Tobias Yang Service: ? Author Type: [...] report available in the Imaging tab in [employer] ? Tobias Yang MD [facility] PROGRESSon 01-31-2019 PROGRESS HNO ID: [id number] Author: Tobias Yang Service: ? Author Type: [...] report available in the Imaging tab in [facility] ? Tobias Yang MD [facility] PROGRESSon 01-18-2019 PROGRESS HNO ID: [id number] Author: Tobias Yang Service: ? Author Type: [...] Imaging tab in Epic Tobias Yang MD [facility] Vital Signs Date Time Vital Sign Value Performing Clinician Facility 07-24-2023 08:28-0400 Body height 170.18 cm [facility] 07-24-2023 08:28-0400 Body mass index (BMI) [Ratio] 44.1 kg/m2 [facility] 07-24-2023 08:28-0400 Body weight 127.91 kg [facility] 07-24-2023 08:28-0400 Diastolic blood pressure 78 mm[Hg] [facility] 07-24-2023 08:28-0400 Heart rate 63 /min [facility] 07-24-2023 08:28-0400 Systolic blood pressure 114 mm[Hg] [facility] 03-20-2023 08:30-0500 Body height 170.18 cm David Newberry Other [employer] Other 03-20-2023 08:30-0500 Body mass index (BMI) [Ratio] 43.47 kg/m2 David Newberry Other [employer] Other 03-20-2023 08:30-0500 Body weight 125.92 kg David Newberry Other [employer] Other 03-20-2023 08:30-0500 Diastolic blood pressure 74 mm[Hg] David Newberry Other [facility] [employer] Other 03-20-2023 08:30-0500 Systolic blood pressure 109 mm[Hg] David Newberry Other [facility] [employer] Other 01-23-2023 08:56-0500 Blood Pressure Location Clark CLEMENS [facility] 01-23-2023 08:56-0500 Diastolic blood pressure 82 mm[Hg] Clark CLEMENS [facility] 01-23-2023 08:56-0500 Heart rate 73 /min Clark CLEMENS [facility] 01-23-2023 08:56-0500 Respiratory rate 16 /min Clark CLEMENS [facility] 01-23-2023 08:56-0500 Systolic blood pressure 124 mm[Hg] Clark CLEMENS [facility] 12-29-2022 12:42-0400 Diastolic blood pressure 74 mm[Hg] MD David Newberry Work Phone: [facility] 12-29-2022 12:42-0400 Heart rate 95 /min MD David Newberry Work Phone: [facility] 12-29-2022 12:42-0400 Respiratory rate 18 /min MD David Newberry Work Phone: [facility] 12-29-2022 12:42-0400 SaO2% (BldA) [Mass fraction] 97 % MD David Newbrery Work Phone: [facility] 12-29-2022 12:42-0400 Systolic blood pressure 105 mm[Hg] MD David Newberry Work Phone: [facility] 12-29-2022 09:45-0400 Body temperature 98.6 [degF] MD David Newberry Work Phone: [facility] 12-29-2022 09:07-0400 Inhaled oxygen flow rate 8 L/min MD David Newberry Work Phone: [facility] 12-29-2022 07:18-0400 Body height 170.18 cm MD David Newberry Work Phone: [facility] 12-29-2022 07:18-0400 Body mass index (BMI) [Ratio] 42.3 kg/m2 MD David Newberry Work Phone: [facility] 12-29-2022 07:18-0400 Body weight 122.46 kg MD David Newberry Work Phone: [facility] 05-19-2022 10:18-0500 Blood Pressure Location Clarkjosse CLEMENS [facility] 05-19-2022 10:18-0500 Diastolic blood pressure 71 mm[Hg] Clark CLEMENS [facility] 05-19-2022 10:18-0500 Heart rate 51 /min Clark CLEMENS [facility] 05-19-2022 10:18-0500 Respiratory rate 16 /min Clark CLEMENS [facility] 05-19-2022 10:18-0500 Systolic blood pressure 113 mm[Hg] Clark CLEMENS [facility] 04-10-2022 15:00-0500 Body height 170.18 cm David Newberry Other [employer] Other 04-10-2022 15:00-0500 Body mass index (BMI) [Ratio] 36.33 kg/m2 David Newberry Other [employer] Other 04-10-2022 15:00-0500 Body weight 105.24 kg David Newberry Other [employer] Other 04-10-2022 15:00-0500 Diastolic blood pressure 74 mm[Hg] David Newberry Other [employer] Other 04-10-2022 15:00-0500 SaO2% (BldA) [Mass fraction] 97 % David Newberry Other [employer] Other 04-10-2022 15:00-0500 Systolic blood pressure 122 mm[Hg] David Newberry Other [employer] Other Encounters Encounter Date Encounter Type Care Provider Facility Start: 01-29-2024 ambulatory Clark Light ty:[facility] Start: 07-27-2023 End: 07-27-2023 ambulatory YOEL BENTLEY Not Available Start: 07-24-2023 End: 07-24-2023 ambulatory [facility] Work Phone: Start: 07-24-2023 End: 07-24-2023 Patient encounter procedure [facility] Work Phone: Start: 07-07-2023 End: 07-07-2023 [facility] Start: 03-20-2023 End: 03-20-2023 ambulatory David Newberry Other [employer] Other Start: 03-20-2023 Office outpatient vi sit 15 minutes David Newberry [facility] Start: 03-03-2023 End: 03-03-2023 ambulatory [facility] Start: 02-27-2023 End: 03-02-2023 ambulatory [facility] Start: 02-27-2023 End: 03-01-2023 Subsequent hospital visit by physician [facility] Comment on above: Postural dizziness w ith near syncope Start: 02-10-2023 End: 02-10-2023 ambulatory DASHA GARCIA Not Available Start: 01-23-2023 End: 01-24-2023 ambulatory Clark CLEMENS Facility:[facility] Start: 01-23-2023 End: 01-23-2023 Patient encounter procedure Clark CLEMENS [facility] Start: 01-20-2023 End: 01-20-2023 ambulatory Enrique Lucas Facility:[facility] Start: 01-20-2023 End: 01-20-2023 ambulatory MD David Newberry Work Phone: [facility] Work Phone: Start: 01-20-2023 End: 01-20-2023 Patient encounter procedure MD David Newberry Work Phone: [facility] [address] Work Phone: Start: 01-09-2023 End: 01-09-2023 ambulatory [facility] Start: 12-29-2022 End: 12-29-2022 ambulatory Dasha Garcia Facility:[facility] Start: 12-29-2022 End: 12-29-2022 Admission to same day surgery center MD David Newberry Work Phone: [facility] [address] [place] Start: 12-15-2022 End: 12-15-2022 ambulatory Dasha Garcia Facility:[facility] Start: 12-15-2022 End: 12-15-2022 ambulatory MD David Newberry Work Phone: [facility] Work Phone: Start: 12-15-2022 End: 12-15-2022 Patient encounter procedure MD David Newberry Work Phone: [facility] Work Phone: Start: 10-10-2022 End: 10-10-2022 ambulatory David Newberry Other [employer] Other Start: 10-10-2022 Telephone encounter David Newberry [facility] Start: 09-10-2022 End: 09-10-2022 ambulatory ELANA [facility] Start: 08-29-2022 End: 08-29-2022 [facility] Start: 08-21-2022 End: 08-21-2022 ambulatory [facility] Start: 07-17-2022 End: 07-18-[address] DAVID NEWBERRY Facility:[facility] Start: 07-17-2022 Encounter for other preprocedural examination DR CLARK CLEMENS . [facility] Start: 07-17-2022 Encounter for preprocedural cardiovascular examination DR CLARK CLEMENS . [facility] Start: 07-17-2022 Encounter for preprocedural laboratory examination DR CLARK CLEMENS . [facility] Start: 07-15-2022 End: 07-15-2022 ambulatory [facility] Start: 07-11-2022 End: 07-12-[address] DAVID NEWBERRY Facility:[facility] Start: 07-11-2022 End: 07-12-2022 Encounter for preprocedural laboratory examination DR DAVID NEWBERRY Facility:[facility] Start: 06-02-2022 End: 06-03-[address] DAVID NEWBERRY Facility:[facility] Start: 05-19-2022 End: 05-20-[address] DAVID NEWBERRY Facility:[facility] Start: 05-19-2022 End: 05-20-2022 ambulatory Clark CLEMENS Facility:[facility] Start: 05-19-2022 End: 05-19-2022 Patient encounter procedure Clark CLEMENS [facility] Start: 05-16-2022 End: 05-16-2022 ambulatory David Newberry Other [employer] Other Start: 05-16-2022 Telephone encounter David Newberry [facility] Start: 05-09-2022 End: 05-09-2022 ambulatory David Newberry Other [employer] Other Start: 05-09-2022 Nursing evaluation o f patient and report David Newberry [facility] Start: 04-25-2022 End: 04-25-2022 ambulatory David Newberry Other [employer] Other Start: 04-25-2022 Telephone encounter David Newberry [facility] Start: 04-23-[address] DAVID NEWBERRY Facil ity:[facility] Start: 04-12-2022 End: 04-13-[address] DAVID NEWBERRY Facility:[facility] Start: 04-11-2022 End: 04-11-[address] DAVID NEWBERRY [employer] Other Start: 04-11-2022 Telephone encounter David Newberry [facility] Start: 04-10-2022 Office outpatient vi sit 15 minutes David Newberry [facility] Start: 04-10-2022 End: 04-10-[address] AMBIKA SALDAÑA . [employer] Other Start: 01-09-2022 Adult health examination Gabbi Newberry Other [employer] Other Start: 12-24-2021 End: 12-25-2021 ambulatory ROYER DINH Facility:[facility] Start: 11-29-2021 Encounter for genera l adult medical examination without abnormal findings DR DAVID NEWBERRY [facility] Start: 11-23-2021 End: 11-24-[address] DAVID NEWBERRY Facility:[facility] Start: 11-23-2021 End: 11-24-2021 Encounter for general adult medical examination without abnormal findings DR DAVID NEWBERRY Facility:[facility] Procedures Date Procedure Procedure Detail Performing Clinician Start: 02-27-2023 Cardiovascular funct ion eval w/tilt table w/mntr Elanamarcelino Westonmaribeth [employer] - [employer] Work Phone: Start: 12-29-2022 Total hysterectomy v ia vaginal approach MD David Newberry Work Phone: Start: 12-15-2022 Antibody screen Enrique Lucas Comment on above: Order Comment: Date of Surgery: [id number] Result Comment: PERF ORMED BY: [facility] [address] [place] [address] PATHOLOGIST [employer]ELOPER OLIMPIA MORA M.D. Start: 07-17-2022 Transurethral cystoscopy Clark CLEMENS Start: 03-16-2012 Tonsillectomy and adenoidectomy Clark CLEMENS H/O: hysterectomy S/P laparoscop ic hysterectomy MD David Newberry Work Phone: Laparoscopic-assiste d vaginal hysterectomy Clark CLEMENS Plan of Treatment Date Care Activity Detail Author Start: 06-06-2029 DTaP/Tdap/Td vaccine (2 - Td or Tdap) DTaP/Tdap/Td vaccine (2 - Td or Tdap) [facility] Start: 01-20-2023 Bacteria identified in Urine by Culture Urine Culture [facility] Start: 12-29-2022 [facility] Start: 12-29-2022 Hospital admission [facility] Start: 11-14-2022 COVID-19 Vaccine ( season) COVID-19 Vaccine () [facility] Start: 10-14-2022 Influenza vaccination Flu vaccine (# 1) [email or web address] [facility] Start: 2020 Screening for malign ant neoplasm of cervix [facility] Start: 12-08-2011 Screening for malign ant neoplasm of cervix Pap smear [email or web address] [facility] Start: 2008 Hepatitis C screening Hepatitis C sc reen [email or web address] [facility] Start: 2005 HIV screening HIV screen [facility] Start: 2002 Depression Screen Depression Screen [facility] Start: 12-08-1991 Varicella vaccine (1 of 2 - 2-dose childhood series) Varicella vaccine (1 of 2 - 2-dose childhood series) [facility] Start: 1990 Hepatitis B vaccine (1 of 3 - 3-dose series) Hepatitis B vaccine (1 of 3 - 3-dose series) [facility] Complement C3 [Mass/volume] in Serum or Plasma [facility] Complement C4 [Mass/volume] in Serum or Plasma [facility] Patient referral [facility] Work Phone: End: 02-27-2023 Tilt table Tilt table CV Cardiac Diagnostics Routine Postural dizziness with near syncope 1 Occurrences starting 02/27/2023 until 02/27/2023 [facility] Work Phone: Comment on above: 1 Occurrences starti ng 02/27/2023 until 02/27/2023 [facility] Immunizations Immunization Date Immunization Notes Care Provider Fa yves 04-25-2020 SARS-CoV-2 (COVID-19 ) mRNA-1273 vaccine Clark CLEMENS [facility] 03-28-2020 SARS-CoV-2 (COVID-19 ) mRNA-1273 vaccine Clark CLEMENS [facility] 06-07-2019 tetanus toxoid, redu ashly diphtheria toxoid, and acellular pertussis vaccine, adsorbed Clark CLEMENS [facility] 07-01-2018 hepatitis B vaccine, adult dosage Clark CLEMENS [facility] 05-21-2018 hepatitis B vaccine, adult dosage Clark CLEMENS [facility] Payers Date Payer Category Payer Unknown [id number] 2.16.84 [id number] 1990 Unknown [id number] 2.16.84 0.1.961995.3.579.2.593 1990 Unknown [id number] 2.16.84 0.1.356817.3.579.2.593 1990 Unknown [id number] 2.16.84 0.1.949781.3.579.2.593 1990 Unknown [id number] 2.16.84 0.1.011599.3.579.2.593 1990 Unknown [id number] 2.16.84 0.1.786021.3.579.2.593 1990 Unknown [id number] 2.16.84 0.1.338157.3.579.2.593 1990 Unknown [id number] 2.16.84 0.1.377470.3.579.2.593 1990 Unknown [id number] 2.16.84 0.1.175981.3.579.2.593 1990 Unknown [id number] 2.16.84 0.1.552884.3.579.2.593 1990 Unknown [id number] 2.16.84 0.1.961283.3.579.2.593 1990 Unknown [id number] 2.16.84 0.1.909563.3.579.2.593 1990 Unknown [id number] 2.16.8 40.1.506143.3.579.2.727 1990 Unknown [id number] 2.16.8 40.1.777410.3.579.2.727 1990 Unknown [id number] 2.16.8 40.1.323406.3.579.2.727 1990 Unknown [id number] 2.16.8 40.1.608235.3.579.2.727 1990 Unknown [id number] 2.16.8 40.1.587852.3.579.2.173 1990 Unknown [id number] 2.16.84 0.1.190619.3.579.2.1259 1990 Unknown [id number] 2.16.840 .1.262457.3.579.2.1259 1959 Private Health Insurance [id number] 1959 Self-pay Private Health Insurance [id number] [id number] Unknown [id number] 2.16.8 40.1.017481.3.579.2.531 Unknown [id number] 2.16.8 40.1.002587.3.579.2.531 Unknown [id number] 2.16.8 40.1.091419.3.579.2.531 Social History Date Type Detail Facility Unknown if ever smoked [employer] Other Sex Assigned At [facility] Start: 05-19-2022 End: 12-29-2022 Tobacco smoking status Never smoked tobacco (finding) [facility] Tobacco smoking status Never [facility] Start: 1990 Sex Assigned At Female F [facility] Tobacco smoking status NHIS Tobacco smoking consumption unknown [facility] Start: 1990 Sex Assigned At Not on file B [facility] Goals Date Patient Goal Desired Activity /State Functional Status Date Assessment Result Facility 01-23-2023 Functional Status N/A [facility] 05-19-2022 Functional Status N/A [facility] Clinical Notes 04-10-2022 to 07-07-2023 Note Date & Type Note Facility 07-07-2023 Note Patient here c/o int ermittent LE edema. Occurs mostly end of day and resolves by morning. She is now using cpap nightly for KRISTA, and believe it's helping with fatigue. No recent labs or imaging. Review of Systems Cardiovascular: Positive for leg swelling (intermittent) and palpitations. Neurological: Positive for headaches and light-headedness (improving). All other systems reviewed and are negative. [facility] 07-07-2023 Note Cardiovascular Medic in[facility] SUBJECTIVE Chief Complaint Patient presents with Edema Palpitations Morgan Kirkland is a 32 y.o. female here for follow-up on her palpitations. HPI PMHx: palpitations s/p LOOP implant 08/21/2022 07/07/23 Patient here c/o intermittent LE edema. Occurs mostly end of day and resolves by morning. She is now using cpap nightly for KRISTA, and believe it's helping with fatigue. No recent labs or imaging. She has had some intermittent leg swelling last week. It would worsen at the end of the day and improve in the morning. It is better today. She was concerned as the last time she had leg swelling her heart rhythm was abnormal. In the last year she feels like she's had trouble with weight gain, maybe 50# in the year. She tries to watch what she eats but sometimes gets off track. This is the same with exercising. She has occasional palpitations - this is stable and improved since starting metoprolol. Denies CP, dizziness/LH, syncope. ----- 03/03/23 Patient has felt better since starting [...] had a tilt table study done at [facility]. this that was a negative study based [...] 6-6:30am. No VT seen or SVT seen. Patient Active Problem List Diagnosis Acute bronchitis Anxiety Back pain BMI 35.0-35.9,adult Bursitis Contact dermatitis Eczema Epigastric pain Fibromyalgia Gastroesophageal reflux disease Gross hematuria Hypertension Otitis media Palpitations Precordial pain Primary Sjogren's syndrome (CMS/HCC) Right flank pain Spontaneous ecchymosis Symptoms involving urinary system Syncope History of kidney stones Kidney stone Left sided abdominal pain MRSA cellulitis Recurrent UTI Tachycardia Urinary frequency Urinary urgency (more content not included)... [facility] 03-20-2023 Evaluation note Encounter Date Diagnosis Assessment Notes Mar, Paroxysmal SVT (supraventricul ar tachycardia) (ICD-10 - I47.10) Discussed f/u w cardiology Mar, Daytime somnolence (ICD-10 - R40.0) HST order faxed to [facility] sleep lab. Mar, Morbid (severe) obesity due to excess calories (ICD-10 - E66.01) as above Mar, Body mass index [BMI] 40.0-44.9, adult (ICD-10 - Z68.41) as above Mar, Fatigue, unspecified type (ICD-10 - R53.83) as above [employer] Other [id number] NotePatient here for follow up tilt table test per Elana Ramirez CNP. Review of Systems Cardiovascular: Positive for palpitations. Neurological: Positive for dizziness, headaches and light-headedness. All other systems reviewed and are negative.[facility] 03-03-2023 NoteUT Electrophysiology Consult Note Reason for [...] had a tilt table study done at [facility]. this that was a negative study based [...] monitor in December reviewed by Juan Ramirez, ROOMING HOUSE OPERATOR showed sinus tachycardia, atrial arrhythmia. Patient reported [...] tablet 3 No curre (more content not included)...[facility] 02-27-2023 History of Present illness Narrative* May Crandall RN - 02/27/2023 2:30 PM EST Instructed on objectives and procedure of a tilt [facility] Patient Education 01/23/2023 09:39:05 Urinary Tract Infection, Adult, [id number] Urinary Tract Infection, Adult A urinary tract [...] Follow these instructions at home: Medicines Take caco-lhe-gqhhinu and prescription medicines only as told by [...] provider. Document Revised: 10/12/2020 Document Reviewed: 10/12/2020 [employer] Patient Education 2022 [employer]. Follow Up Care 07/18/2022 12:23:23 With:MIKY SAMPSON, Clark Roldan, URL Address: [facility] [address] , [place] [id number] When: Unknown Comments:1 yr w/ REYNA [facility] 10-27-2023 NoteUT Electrophysiology Consult Note Reason for visit: [...] no cyanosis, no pa (more content not included)...[facility]10-27-2023 NotePatient here for 4 mo follow up [...] light-headedness. All other systems reviewed and are negative.[facility] 12-14-2022 History general Narrative - Reported* Type Description Date Medical History tachycardia Medical History anxiety Medical History sjogren syndrome Surgical History tonsillectomy and adenoidectomy Surgical History Hysterectomy 12/2022 Surgical History Loop monitor 08/2022 [employer] Other 06-28-2023 NoteUT Electrophysiology Consult Note Reason for visit: [...] reviewed and are negative. Prior HPI: Morgan Solorzanorer is a 31 y.o. year old with [...] Lungs Respiratory Effort: unlabored (more content not included)...[facility]06-28-2023 NoteReview of Systems Cardiovascular: Positive for palpitations. Neurological: Positive for dizziness, headaches and light-headedness.[facility]06-16-2023 NotePatient seen for wound check s/p loop device placement on 08/21/2022. Wound is clean, dry, intact, and well approximated. Discussed wound care including avoiding, rubbing, lotions, direct shower head pressure, caution with seat belt and bra straps, as well as avoiding other irritants. We will schedule appointment for evaluation of ongoing lightheadedness and dizziness.[facility]06-08-2023 NoteLOOP IMPLANT PROCEDURE NOTE DATE OF PROCEDURE: 08/21/22 PERFORMING PHYSICIAN: Dr. Og Barone SPEEDER WORKER: JESS INDICATIONS FOR PROCEDURE: 1. SVT/AF surveillance [...] the sternum on the left using the RetAPPs tool. The loop recorder was then injected [...] wet the incision. Og Barone MD Cardiac Electrophysiology.[facility]05-03-2023 Note0 points Class I Risk 3.9 % 30-day risk of , [place], or cardiac arrest METS greater than 6 Echo 12/2021 no regional wall motion abnormality, normal LV function and size. Patient can proceed with urological procedure. She is a low risk patient going into a low risk-intermediate procedure. [facility]05-02-2023 NoteUT Electrophysiology Consult Note Reason for visit: [...] Inspection: no joint swell (more content not included)...[facility]03-06-2023 Hospital Discharge instructions Patient Education 05/19/2022 10:46:00 [...] include: ?Spinach. ?Rhubarb. ?Beets. ?Potato chips and bolivian fries. ?Nuts. If you regularly take a diuretic medicine, make sure to eat at least 1 2 fruits or vegetables high in potassium each day. These include: ?Avocado. ?Banana. ?[place], prune, carrot, or tomato juice. ?Baked potato. [...] Casseroles. Pizza. Lasagna. Frozen meals. Potato chips. Italian fries. Summary You can reduce your risk [...] 06/27/2011 Document Revised: 06/22/2019 Document Reviewed: 02/10/2017 [employer] Patient Education 2020 Sensorly. Follow Up Care 05/16/2022 10:14:36 With:MIKY SAMPSON, Clark Roldan, URL Address: [facility] [address], [place] [address]- When: Unknown [facility] 03-03-2023 Evaluation note* Encounter Date Diagnosis Assessment Notes Treatment Notes Treatment Clinical Notes May, Thyroid disease (ICD-10 - E07.9) [employer] Other 02-24-2023 Evaluation note* Encounter Date Diagnosis Assessment Notes Treatment Notes Treatment Clinical Notes Apr, Dysuria (ICD-10 - R30.0) [employer] Other 01-26-2023 Evaluation note* Encounter Date Diagnosis Assessment Notes [...] Acute non-recurrent maxillary sinusitis (ICD-10 - J01.00) [employer] Other Evaluation + Plan note No data available for this section [facility] evaluation + Plan note Future Appointments Appointment Date:01/29/2024 08:30:00 AM Scheduled Provider:Clark CLEMENS MD Location:[facility] Appointment Type:URO Office Visit [facility] evalrxuzzx noteNo InformationN[employer] Other evaluation noteNo assessment information available [facility] Work Phone: Evaluation note* Diagnosis Postural dizziness with near syncope documented in this encounter [facility] note* Diagnosis Onset Date Resolution Status Abnormal weight gain acute Fatigue acute HTN (hypertension) acute [facility] Work Phone: [employer] general Narrative - Reported* Type Description Date Medical History tachycardia Medical History anxiety Medical History sjogren syndrome Surgical History tonsillectomy and adenoidectomy sambaash [facility] [employer] Other [place] note No data available for this section [facility] Summary Purpose Family History No Family History Records Found Relationship Condition Age at Onset Recorded Date/T livia father Heart disease Unknown Not Specified Hypertension Unknown grandparent Malignant neoplasm of prostate Unknown Diabetes mellitus Unknown grandparent Heart disease Unknown brother Hypertension Unknown Advance Directives No Advanced Directives Records Found Advance Directive Response Recorded Date/ Time Advance Directives No April 10:31am Advance Directive Response Recorded Date/ Time Advance Directives No April 9:31am Chief Complaint and Reason for Visit Chief Complaint Adenomyeosis, LLQ Pa in, Menorrhagia Chief Complaint Adenomyeosis, LLQ Pa in, Menorrhagia Adenomyeosis, LLQ Pain, Menorrhagia Chief Complaint Weight Loss Reason for Visit Abnormal weight gain Fatigue HTN (hypertension) Reason for Referral Specialty Diagnoses / Procedures Referred By Contac t Referred To Contact Diagnoses Postural dizziness with near syncope Procedures Tilt table Elana RamirezOLIVER - FILENET ARCHITECT [address] [facility] [address] [place] [address] Referral ID Status Reason Start Date Expiration Date Visits Re quested Visits Authorized [id number] Closed 02/16/2023 02/16/2024 1 1 Additional Source Comments INFORMATION SOURCE (unrecogn ized section and content) DATE CREATED AUTHOR 03/29/2019 [facility] DATE CREATED AUTHOR AUTHOR'S ORGANIZ ATION 07/24/2022 [facility] DATE CREATED AUTHOR AUTHOR'S ORGANIZ ATION 01/25/2023 [facility] DATE CREATED AUTHOR AUTHOR'S ORGANIZ ATION 01/29/2023 [facility] DATE CREATED AUTHOR AUTHOR'S ORGANIZ ATION 03/02/2023 [facility] DATE CREATED AUTHOR AUTHOR'S ORGANIZ ATION 07/08/2023 [facility] DATE CREATED AUTHOR AUTHOR'S ORGANIZ ATION 07/28/2023 [facility] EPIC REASON FOR VISIT (unrecogniz ed section and content) Specialty Diagnoses / Procedures Referred By Contac t Referred To Contact Diagnoses Postural dizziness with near syncope Procedures Tilt table Elana RamirezOLIVER - FILENET ARCHITECT [address] [facility] [address] [place] [address] Referral ID Status Reason Start Date Expiration Date Visits Re quested Visits Authorized [id number] Closed 02/16/2023 02/16/2024 1 1 Patient Care [...] Active Enrique Lucas MD Attending Provider Active Bed Operator Relationship Specialty Start Date End Date David Newberry MD [address] [facility] [place] [address] PCP - General Family Medicine 02/27/23 Team Status: Inactive Member Role Status Dates David Newberry MD Primary Care Provide r, Attending Provider Active Start: July 24, 2023 End: July 24, 2023 Goals (unrecognized section and content) Goals may [...] BE BASED ON THE PRIMARY CLINICAL RECORDS. [employer] provides no warranty or guarantee of the accuracy or completeness of information in this document.
[2023-08-01 08:56] LABS: Basophils Percent Auto 0.6 % (0.2-2.0); Eosinophils Absolute Auto 0.1 10^3/uL (0.0-0.7); Eosinophils Percent Auto 1.6 % (0.9-7.0); Hematocrit 38.8 % (36.0-48.0); Hemoglobin 13.1 g/dL (12.0-16.0); Immature Granulocytes Abs Auto 0.02 10^3/uL (0.00-0.03); Immature Granulocytes Pct Auto 0.3 % (0.0-0.5); Lymphocytes Absolute Auto 2.4 10^3/uL (1.2-3.8); Lymphocytes Percent Auto 34.4 % (20.5-60.0); Mean Corpuscular HGB Conc 33.8 g/dL (29.9-35.2); Mean Corpuscular Hemoglobin 29.6 pg (26.7-34.0); Mean Corpuscular Volume 87.8 fL (81.0-99.0); Mean Platelet Volume 9.7 fL (9.5-13.5); Monocytes Absolute Auto 0.5 10^3/uL (0.3-0.8); Monocytes Percent Auto 7.4 % (1.7-12.0); Neutrophils Absolute Auto 3.9 10^3/uL (1.4-6.5); Neutrophils Percent Auto 55.7 % (43.0-75.0); Platelet Count 231 10^3/uL (150-450); Red Blood Count 4.42 10^6/uL (4.20-5.40); Red Cell Distribution Width 12.1 % (11.0-15.0)
[2023-08-01 09:54] LABS: Free T4 0.95 ng/dL (0.76-1.46)
[2023-08-01 10:42] LABS: Anion Gap 12.4; BUN Creatinine Ratio 15.4; Calcium 9.2 mg/dL (8.5-10.1); Carbon Dioxide 25.5 mmol/L (21.0-32.0); Chloride 103 mmol/L (98-107); Estimated GFR (African America >60 (>=60); Estimated GFR (Non-African Ame >60 (>=60); Glucose 100 mg/dL (74-106); Potassium 3.9 mmol/L (3.5-5.1); Sodium 137 mmol/L (136-145); Thyroid Stimulating Hormone 1.067 uIU/mL (0.358-3.740)
== END 2023-08-01 08:30 | disposition home or self-care (01) ==
LOC: LAB 08:29
PROVIDERS: PCP Family Medicine; Visit Provider Family Medicine
DX: R53.83 Other fatigue (principal); I10 Essential (primary) hypertension; R63.5 Abnormal weight gain
CPT/HCPCS: 36415; 80048; 82533; 84439; 84443; 85025

== ENCOUNTER 2023-08-08 09:07 | Outpatient (OUT) | payer OTHER, SELFPAY ==
--- NOTE | 2023-08-08 | XR_ITS ---
The [address] [address] Patient Name: MORGAN KIRKLAND MRN: [id number] date: 1990 Sex: F Assigned Patient Location: [facility] Current Patient Location: Accession/Order Number: [id number] Exam Date: 08/08/2023 10:04 Report Date: 08/11/2023 09:20 At the request of: CLARK BOLAÑOS Procedure: XR abdomen 1V EXAMINATION: XR abdomen 1V HISTORY: history of kidney stones COMPARISON: No relevant comparison available. FINDINGS: KIDNEY/URETER - RIGHT: No visible renal or ureteral calcifications. KIDNEY/URETER - LEFT: No visible renal or ureteral calcifications. PELVIS: No visible ureteral calcifications. Any visible calcifications favor phleboliths. BOWEL: No abnormal dilation or deviation. BONES: No acute abnormality. OTHER: Negative. No abnormal gaseous collections. XR/XR abdomen 1V IMPRESSION: 1. No appreciable urinary tract calculi. Electronically authenticated by: ZAHRA MCCLENDON Date: 08/11/2023 09:20
--- OUTSIDE RECORDS SUMMARY | 2023-08-08 09:12 | XMS_ITS ---
Patient Summarization (C-CDA 2.1 CCD) Created on: August 08, 2023 MORGAN KIRKLAND : 1990 Sex: Female Author Organization Sample organization Care Team Providers Care House Registry Rn Name Role Phone David Newberry Unavailable DAVID NEWBERRY Primary Care Physician [phone] ROHITH, DR DAVID Fisher Admitting Unavailable NEWBERRY, [...] Unavailable NEWBERRY, DR DAVID Fisher Consulting Unavailable KELSIE, DR MEJIA Attending Unavailable HAKAN, DR ZAHRA Roldan Consulting Unavailable ROHITH, DR DAVID Fisher Primary Care Unavailable KELSIE, DR MEJIA Admitting Unavailable NEWBERRY, DR DAVID Fisher Consulting Unavailable ELANA RAMIREZ Consulting Unavailable KELSIE, DR MEJIA Consulting Unavailable ROYER DINH Consulting Unavailable ROYER DINH Admitting Unavailable ROHITH, DR DAVID Fisher Primary Care Unavailable ROYER DINH Attending Unavailable PIOTR ., DR APPLE Consulting Unavailable PIOTR ., DR APPLE Attending Unavailable NEWBERRY, DR DAVID Fisher Primary Care Unavailable HAY ., DR APPLE Admitting Unavailable NEWBERRY, DR DAVID Fisher Primary Care Unavailable CLEMENS ., DR RODAS Admitting Unavailable CLEMENS ., DR RODAS Consulting Unavailable CLEMENS ., DR RODAS Attending Unavailable YOEL VAZ Consulting Unavailable NEWBERRY, DR DAVID Fisher Primary Care Unavailable CLEMENS ., DR RODAS Consulting Unavailable CLEMENS ., DR RODAS Attending Unavailable CLEMENS ., DR RODAS Admitting Unavailable KEITH PLASENCIA Consulting Unavailable DELFINO COVINGTON Consulting Unavailable MD David Newberry Primary Care Provider DO Dasha Garcia Attending Provider [phone] MD David Newberry Primary Care Provider DO Dasha Garcia Attending Provider MD Enrique Lucas Attending Provider Clark CLEMENS Attending Unavailable MIKY, Clark Roldan Attending Unavailable MIKY, Clark Roldan Attending Unavailable MIKY, Clark Roldan Attending Unavailable Enrique Lucas Admitting Unavailable Enrique Lucas Attending Unavailable David Newberry Primary Care Unavailable Jose, Dasha Admitting Unavailable Dasha Garcia Attending Unavailable David Newberry Primary Care Unavailable Jose, Dasha Attending Unavailable Jose, Dasha Admitting Unavailable David Newberry Primary Care Unavailable David Newberry MD Primary Care Provider [phone] DAVID NEWBERRY Primary Care Unavailable ELANA RAMIREZ Referring Unavailable OG BARONE Attending Unavailable NAHID GRIFFIN Attending Unavailable ELANA RAMIREZ Attending Unavailable OG BARONE Admitting Unavailable OG BARONE Attending Unavailable ELANA RAMIREZ Attending Unavailable OG BARONE Attending Unavailable GERSON SOTO Attending Unavailable DASHA GARCIA Attending Unavailable YOEL BENTLEY Attending Unavailable Allergies Allergy Classification Reported Allergen(s) Allergy Type Date of Onset Reaction(s) Facility (17 sources) Penicillin; Translations: [penicillin] Drug Allergy 03-26-19 21 rash, Weal (disorder) [facility] [place] (2 sources) Allergies Reconciled Propensity to adverse reactions Unknown [employer] Other (2 sources) Substance with penicillin structure and antibacterial mechanism of action (substance) Drug allergy 11-06-20 13 Unknown [employer] Other (2 sources) patient allergy list reviewed by nurse or physicia Propensity to adverse reactions 09-08-19 14 Comment:Done [employer] Other (3 sources) Penicillins; Translations: [Penicillins] Allergy to substance 12-16-19 23 Rash [facility] (6 sources) Povidone-Iodine; Translations: [povidone iodine topical] Drug Allergy 03-03-20 23 Eruption of skin (disorder) [facility] Rob Encounters Encounter Date Encounter Type Care Provider Facility Start: 01-29-2024 ambulatory Clark Staplesi ty:DIONY Rivas Start: 08-07-2023 End: 08-07-2023 Lab Drop off Clark CLEMENS [facility] Start: 08-07-2023 End: 08-07-2023 Patient encounter procedure Clark CLEMENS [facility] Ramona Start: 07-27-2023 End: 07-27-2023 ambulatory YOEL BENTLEY Not Available Start: 07-24-2023 End: 07-24-[address] [facility] Work Phone: Start: 07-24-2023 End: 07-24-2023 Patient encounter procedure [facility] Physician [facility] Work Phone: Start: 07-07-2023 End: [facility]07[facility] Start: 03-20-2023 End: 03-20-2023 ambulatory David Newberry Other [employer] Other Start: 03-20-2023 Office outpatient vi sit 15 minutes David [facility] Start: 03-03-2023 End: 03-03-2023 ambulatory [facility] Start: 02-27-2023 End: 03-02-2023 ambulatory DAVID [facility]ERR[facility] Start: 02-27-2023 End: 03-01-2023 Subsequent hospital visit by physician M[facility] Stress Lab 1 [facility] Non-Invasive Cardiology Comment on above: Postural dizziness w ith near syncope Start: 02-10-2023 End: 02-10-2023 ambulatory DASHA GARCIA Not Available Start: 01-23-2023 End: 01-24-2023 ambulatory Clark CLEMENS Facility:[facility] Start: 01-23-2023 End: 01-23-2023 Patient encounter procedure Clark CLEMENS [facility] Start: 01-20-2023 End: 01-20-2023 ambulatory Enrique Lucas Facility:[facility] Start: 01-20-2023 End: 01-20-2023 ambulatory MD David Newberry Work Phone: [facility] Work Phone: Start: 01-20-2023 End: 01-20-2023 Patient encounter procedure MD David Newberry Work Phone: [facility] [address] Work Phone: Start: 01-09-2023 End: 01-09-2023 ambulatory ELANA RAMIREZ [facility] Start: 12-29-2022 End: 12-29-2022 ambulatory Dasha Garcia Facility:[facility] Start: 12-29-2022 End: 12-29-2022 Admission to same day surgery center MD David Newberry Work Phone: [facility] [address] [place] Start: 12-15-2022 End: 12-15-2022 ambulatory Dasha Garcia Facility:[facility] Start: 12-15-2022 End: 12-15-2022 ambulatory MD David Newberry Work Phone: [facility] Work Phone: Start: 12-15-2022 End: 12-15-2022 Patient encounter procedure MD David Newberry Work Phone: [facility] Work Phone: Start: 10-10-2022 End: 10-10-2022 ambulatory David Newberry Other [employer] Other Start: 10-10-2022 Telephone encounter [facility] Start: 09-10-2022 End: 09-10-2022 ambulatory ELANA [facility] Start: 08-29-2022 End: 08-29[facility] Start: 08-21-2022 End: 08-21-2022 ambulatory [facility] Start: 07-17-2022 End: 07-18-[address] DAVID NEWBERRY Facility:[facility] Start: 07-17-2022 Encounter for other preprocedural examination DR CLARK CLEMENS . [facility] Start: 07-17-2022 Encounter for preprocedural cardiovascular examination DR CLARK CLEMENS . [facility] Start: 07-17-2022 Encounter for preprocedural laboratory examination DR CLARK CLEMENS . [facility] Start: 07-15-2022 End: 07-15-2022 ambulatory [facility] Start: 07-11-2022 End: 07-12-[address] DAVID NEWBERRY Facility:[facility] Start: 07-11-2022 End: 07-12-2022 Encounter for preprocedural laboratory examination DR DAVID NEWBERRY Facility:[facility] Start: 06-02-2022 End: 06-03-[address] DAVID NEWBERRY Facility:[facility] Start: 05-19-2022 End: 05-20-[address] DAVID NEWBERRY Facility:[facility] Start: 05-19-2022 End: 05-20-2022 ambulatory Clark CLEMENS Facility:[facility] Start: 05-19-2022 End: 05-19-2022 Patient encounter procedure Clark CLEMENS [facility] Start: 05-16-2022 End: 05-16-2022 ambulatory David Newberry Other [employer] Other Start: 05-16-2022 Telephone encounter [facility] Start: 05-09-2022 End: 05-09-2022 ambulatory David Newberry Other [employer] Other Start: 05-09-2022 Nursing evaluation o f patient and report David [facility] Start: 04-25-2022 End: 04-25-2022 ambulatory David Newberry Other [employer] Other Start: 04-25-2022 Telephone encounter David [facility] Start: 04-23-[address] DAVID NEWBERRY Facil ity:[facility] Start: 04-12-2022 End: 04-13-[address] DAVID NEWBERRY Facility:[facility] Start: 04-11-2022 End: 04-11-[address] DAVID NEWBERRY [employer] Other Start: 04-11-2022 Telephone encounter David [facility] Start: 04-10-2022 Office outpatient vi sit 15 minutes David [facility] Start: 04-10-2022 End: 04-10-[address] AMBIKA SALDAÑA . [employer] Other Start: 01-09-2022 Adult health examination Gabbi Newberry Other [employer] Other Start: 12-24-2021 End: 12-25-2021 ambulatory ROYER DINH Facility:[facility] Start: 11-29-2021 Encounter for genera l adult medical examination without abnormal findings DR DAVID NEWBERRY [facility] Start: 11-23-2021 End: 11-24-[address] DAVID NEWBERRY Facility:[facility] Start: 11-23-2021 End: 11-24-2021 Encounter for general adult medical examination without abnormal findings DR DAVID NEWBERRY Facility:[facility] Goals Date Patient Goal Desired Activity /State Immunizations Immunization Date Immunization Notes Care Provider Silvia marinelli 04-25-2020 SARS-CoV-2 (COVID-19 ) mRNA-1273 vaccine Clark CLEMENS [facility] 03-28-2020 SARS-CoV-2 (COVID-19 ) mRNA-1273 vaccine Clark CLEMENS [facility] 06-07-2019 tetanus toxoid, redu ashly diphtheria toxoid, and acellular pertussis vaccine, adsorbed Clark CLEMENS [facility] 07-01-2018 hepatitis B vaccine, adult dosage Clark CLEMENS [facility] 05-21-2018 hepatitis B vaccine, adult dosage Clark CLEMENS [facility] Medications Current Medications Medication Drug Class(es) [...] Active metoprolol tartrate 75 mg oral tablet (16 sources) beta-Adrenergic Caden Start: 12-15-2022 Metoprolol Tartrate [...] nitroGLYCERIN (NITROSTAT) SL tablet 0.3 mg Vit 48-Aiec-Uekxl-Dha ( + Dha) 28 mg iron- 975 mcg-200 mg Combo Pack (3 sources) Start: 04-21-2019 End: 12-15-2022 take 1 tablet by mouth once daily Vit 51-Rcme-Naoeh-Dha ( + Dha) 28 mg iron- 975 mcg-200 mg Combo Pack Discontinued 1 TAB PO Daily April 21, 2019 12:00am December 15, 2022 1:43pm Start: 04-21-2019 End: 12-15-2022 take 1 tablet by mouth once daily Vit 69-Qfrh-Vrdic-Dha ( + Dha) 28 mg iron- 975 mcg-200 mg Combo Pack Discontinued 1 TAB PO Daily April 21, 2019 1:00am December 15, 2022 2:43pm traMADol hydrochloride 50 mg oral tablet (2 sources) Opio[employer]on[employer] Start: 12-29-2022 End: 07-24-2023 take 50 mg by mouth every six hours Tramadol Discontinued 50 MG PO Q6H 30 7 December 29, 2022 12:00am July 24, 2023 8:35am Payers Date Payer Category Payer Unknown [id number] 2.16.84 [id number] 1990 Unknown [id number] 2.16.84 0.1.450220.3.579.2.593 1990 Unknown [id number] 2.16.84 0.1.848371.3.579.2.593 1990 Unknown [id number] 2.16.84 0.1.908008.3.579.2.593 1990 Unknown [id number] 2.16.84 0.1.696631.3.579.2.593 1990 Unknown [id number] 2.16.84 0.1.744982.3.579.2.593 1990 Unknown [id number] 2.16.84 0.1.408292.3.579.2.593 1990 Unknown [id number] 2.16.84 0.1.886731.3.579.2.593 1990 Unknown [id number] 2.16.84 0.1.555591.3.579.2.593 1990 Unknown [id number] 2.16.84 0.1.612074.3.579.2.593 1990 Unknown [id number] 2.16.84 0.1.368079.3.579.2.593 1990 Unknown [id number] 2.16.84 0.1.680513.3.579.2.593 1990 Unknown [id number] 2.16.8 40.1.523859.3.579.2.727 1990 Unknown [id number] 2.16.8 40.1.261067.3.579.2.727 1990 Unknown [id number] 2.16.8 40.1.921738.3.579.2.727 1990 Unknown [id number] 2.16.8 40.1.457448.3.579.2.727 1990 Unknown [id number] 2.16.8 40.1.107847.3.579.2.173 1990 Unknown [id number] 2.16.84 0.1.613153.3.579.2.1259 1990 Unknown [id number] 2.16.840 .1.630104.3.579.2.1259 1959 Private Health Insurance [id number] Self-pay Private Health Insurance [id number] 2.16.840.1.572569.19 Unknown [id number] 2.16.8 40.1.456764.3.579.2.531 Unknown [id number] 2.16.8 40.1.465049.3.579.2.531 Unknown [id number] 2.16.8 40.1.064670.3.579.2.531 Plan of Treatment Date Care Activity Detail Author Start: 06-06-2029 DTaP/Tdap/Td vaccine (2 - Td or Tdap) DTaP/Tdap/Td vaccine (2 - Td or Tdap) [facility] Start: 01-20-2023 Bacteria identified in Urine by Culture Urine Culture [facility] Start: 12-29-2022 [facility] Start: 12-29-2022 Hospital admission [facility] Start: 11-14-2022 COVID-19 Vaccine ( season) COVID-19 Vaccine ( season) [facility] Start: 10-14-2022 Influenza vaccination Flu vaccine (# 1) [facility] Start: 2020 Screening for malign ant neoplasm of cervix [facility] Start: 12-08-2011 Screening for malign ant neoplasm of cervix Pap smear [facility] Start: 2008 Hepatitis C screening Hepatitis C sc reen [facility] Start: 2005 HIV screening HIV screen [facility] Start: 2002 Depression Screen Depression Screen [facility] Start: 12-08-1991 Varicella vaccine (1 of 2 - 2-dose childhood series) Varicella vaccine (1 of 2 - 2-dose childhood series) [facility] Start: 1990 Hepatitis B vaccine (1 of 3 - 3-dose series) Hepatitis B vaccine (1 of 3 - 3-dose series) [facility] Complement C3 [Mass/volume] in Serum or Plasma [facility] Complement C4 [Mass/volume] in Serum or Plasma [facility] Patient referral [facility] Work Phone: End: 02-27-2023 Tilt table Tilt table CV Cardiac Diagnostics Routine Postural dizziness with near syncope 1 Occurrences starting 02/27/2023 until 02/27/2023 [facility] Work Phone: Comment on above: 1 Occurrences starti ng 02/27/2023 until 02/27/2023 [facility] Problems Active Problems Problem Classification Problem Date Documented Date Episodic/Chronic Abdominal pain (20 sources) Abdominal pain; Translations: [Unspecified abdominal pain] Onset: 09-22-2013 Episodic Acute bronchitis (7 sources) Acute bronchitis; Translations: [Acute bronchitis, unspecified] Onset: 09-12-2015 11-10-2019 Episodic Allergic reactions (16 sources) Contact dermatitis; Translations: [Eczema] Onset: 06-18-2017 11-10-2019 Episodic Anxiety disorders (7 sources) Anxiety; Translations: [Anxiety disorder] Onset: 09-07-2013 11-10-2019 Chronic Bacterial infection; unspecified site (6 sources) Methicillin resistant Staphylococcus aureus infection; Translations: [Personal history of Methicillin resistant Staphylococcus aureus infection] Onset: 07-24-2022 11-17-2020 Episodic Calculus of urinary tract (20 sources) History of calculus of kidney; Translations: [Personal history of urinary calculi] Onset: 05-19-2022 Episodic Cardiac dysrhythmias (20 sources) Tachycardia, unspecified; Translations: [Palpitations] Onset: 04-06-2014 Episodic Chronic obstructive pulmonary disease and bronchiectasis (2 sources) Bronchitis; Translations: [Bronchitis, not specified as acute or chronic] Episodic Coagulation and hemorrhagic disorders (7 sources) Spontaneous ecchymosis; Translations: [Spontaneous ecchymoses] Onset: 11-30-2013 11-10-2019 Episodic Coma; stupor; and brain damage (2 sources) Daytime somnolence; Translations: [Somnolence] Episodic Endometriosis (2 sources) Uterine adenomyosis; Translations: [Adenomyosis of uterus] 12-29-2022 Chronic Esophageal disorders (8 sources) Gastroesophageal reflux disease; Translations: [Gastro-esophageal reflux disease without esophagitis] Onset: 11-01-2013 11-10-2019 Chronic Essential hypertension (14 sources) Hypertensive disorder; Translations: [Essential (primary) hypertension] [...] of hypertension] Episodic Other connective tissue disease (5 sources) Bursitis 11-10-2019 Episodic Other connective tissue disease (7 sources) Fibromyalgia; Translations: [Fibromyalgia] Onset: 02-13-2015 11-10-2019 Episodic Other connective tissue disease (1 source) Fibromyalgia; Translations: [FIBROMYALGIA] Onset: 07-24-2022 Episodic Other female genital disorders (3 sources) History of past delivery; Translations: [Status post vaginal delivery] 06-07-2019 Episodic Other nutritional; endocrine; and metabolic disorders (5 sources) Body mass index 30+ - obesity [...] unspecified; Translations: [Acute pharyngitis] Onset: 02-09-2017 Episodic Otitis media and related conditions (7 sources) Otitis media; Translations: [Acute secretory otitis media] Onset: 06-03-2017 11-10-2019 Episodic Residual codes; unclassified (1 source) Acquired absence of both cervix and uterus; Translations: [Acquired absence of both cervix and uterus] Onset: 12-29-2022 Episodic Skin and subcutaneous tissue infections (9 sources) Cellulitis caused by Staphylococcus aureus; Translations: [Abscess of right lower limb] 11-17-2020 Episodic Spondylosis; intervertebral disc disorders; other back problems (9 sources) Backache; Translations: [Dorsalgia, unspecified] Onset: 09-07-2013 11-10-2019 Episodic Syncope (10 sources) Syncope; Translations: [Syncope and collapse] Onset: 09-22-2013 11-10-2019 Episodic Systemic lupus erythematosus and connective tissue disorders (8 sources) Sjogren's syndrome; Translations: [Sicca syndrome, unspecified] [...] laboratory examination] Onset: 12-15-2022 Urinary tract infections (9 sources) Urinary tract infectious disease; Translations: [Urinary tract infection, site not specified] Onset: 05-19-2022 Episodic Viral infection (9 sources) Verruca vulgaris; Translations: [Viral wart, unspecified] Onset: 02-09-2017 11-10-2019 Episodic Viral infection (2 sources) Disease caused by 2019-nCoV; Translations: [COVID-19] Past or Other Problems Problem Classification Problem Date Documented Da te Episodic/Chronic Conditions associated with dizziness or vertigo (4 sources) Postural dizziness; Translations: [Dizziness and giddiness] Onset: 01-09-2023 02-27-2023 Episodic Immunizations and screening for infectious disease (4 sources) Raised antibody titer; Translations: [RAISED ANTIBODY TITER] Onset: 04-12-2022 Episodic Other connective tissue disease (2 sources) [...] Translations: [ABNORMAL COAGULATION PROFILE] Onset: 04-15-2022 Episodic Unclassified (1 source) Paroxysmal SVT (supraventricular tachycardia) I47.10 Procedures Date Procedure Procedure Detail Performing Clinician Start: 02-27-2023 Cardiovascular funct ion eval w/tilt table w/mntr Elana Egan NP Work Phone: Start: 12-29-2022 Total hysterectomy v ia vaginal approach MD David Newberry Work Phone: Start: 12-15-2022 Antibody screen Enrique Lucas Comment on above: Order Comment: Date of Surgery: [id number] Result Comment: PERF ORMED BY: [address] [place] [address] PATHOLOGIST LIGHTING ADVISER OLIMPIA MORA M.D. Start: 07-17-2022 Transurethral cystoscopy Clark CLEMENS Start: 03-16-2012 Tonsillectomy and adenoidectomy Clark CLEMENS H/O: hysterectomy S/P laparoscop ic hysterectomy MD David Newberry Work Phone: Laparoscopic-assiste d vaginal hysterectomy Clark CLEMENS Results Test Name Value Interpretation Reference Range Facility Office Visiton 07-07-2023 Follow-up visit [id number] Ada Kirkland 1990 F Date Provider Department Center 07/07/2023 GERSON ELIZABETH [facility] Family History Problem Relation Age of Onset Heart attack Father 44 Coronary artery disease Father Clotting disorder Father Family Status - Relation Status Age at Father Alive Level of Service:53738 [place] OFFICE/OUTPATIENT ESTABLISHED LOW MDM 20 MIN Reason for Visit and Comments: Edema [[id number]] Palpitations [586193] Normal [facility] Office Visiton 03-03-2023 Follow-up visit [id number] Ada Kirkland 1990 F Date Provider Department Center 03/03/2023 241-OG BARONE CARD [facility] Family History Problem Relation Age of Onset Heart attack Father 44 Coronary artery disease Father Clotting disorder Father Family Status - Relation Status Age at Father Alive Level of Service:29701 [place] OFFICE/OUTPATIENT ESTABLISHED MOD MDM 30 MIN Normal [facility] Tilt tableOrdered By: Nadiya bonner on 02-27-2023 BP (Initial Tilt) 125/97 mmHg BON [employer] Work Phone: BP (Max BP) 139/92 mmHg BON [employer] Work Phone: BP (Max Heart Rate) 83/41 mmHg BON [employer] Work Phone: [phone] BP (Min BP) 83/41 mmHg [employer]ON [employer] Work Phone: [phone] BP (Min Heart Rate) 111/82 mmHg BON S [employer] Work Phone: BP (Supine) 131/52 bpm [facility]ON [employer] [facility] Work Phone: Heart rate 72 /min bpm [facility]ON [employer] Work Phone: [phone] Heart rate 112 /min bpm BON [employer] Work Phone: Minutes (Max BP) 22 BON SECO [employer] Work Phone: Minutes (Max Heart Rate) 23 BON [employer] Work Phone: Minutes (Min BP) 23 BON SECO URS [employer] Work Phone: Minutes (Min Heart Rate) 6 BON SECOURS [employer] Work Phone: Rhythm (Initial Tilt) SR MIGUEL [employer] Work Phone: Rhythm (Max BP) ST MIGUEL RYAN [employer] Work Phone: Rhythm (Max Heart Rate) ST [facility]EL [facility] [employer] Work Phone: Rhythm (Min BP) ST MIGUEL RYAN [employer] Work Phone: Rhythm (Min Heart Rate) SR MIGUEL [employer] Work Phone: Rhythm (Supine) SR MIGUEL RYAN [employer] Work Phone: IMGUEL [employer] Work Phone: Tilt tableon 02-27-2023 Radiology Study observation (narrative) ZYB Tilt Study Conclusio ns: Study Conclusions: Abnormal [...] with their primary care physician and/ or truss assembler as previously scheduled. [facility] CV CPACS Vital signsOrdered By: Nadiya Escobar hmad on 02-27-2023 Heart rate 78 /min bpm [employer] Work Phone: Heart rate 122 /min bpm [employer] Phone: Ambulatory Visit Summaryon 1 03-25-2022 Ambulatory Visit Summary ISAELMORGAN ENIRQUEZ Phillip :1990 Visit Date:01/23/2023 Ambulatory Visit Instructions Your Diagnosis History of kidney stones Recurrent UTI Tests Performed Urnls Dip Stick Auto w/o Microscopy POC [id number] XR Abdomen 1 View -- Results Pending [...] SAMPSON, Clark Roldan Where: [facility] Normal [facility] Lab Reportson 01-23-2023 Lab Reports [id number] Normal [facility] Patient Educationon 01-24-20 Patient Education Obstetrics and [...] these instructions at home: Medicines ? Take muhb-jmv-qlwbdga and prescription medicines only as told by [...] provider. Document Revised: 10/12/2020 Document Reviewed: 10/12/2020 [employer] Patient Education ? 2022 [employer]. Normal [facility] RAD - MISCon 01-23-2023 [facility] MIS [id number] Normal [facility] Urology Office/Clinic Noteon 01-23-2023 Urology Office/Clinic Note [...] [facility] [address], [place] [address] [phone] Additional Instructions: 1 yr w/ KUB Patient Education Urinary Tract Infection, Adult, Rkta-kz-Heli I, Antionette Huizar, personally scribed for Dr. Clemens on 01/23/2023 09:39:31. . Documentation recorded by the scribeAntionette, accurately reflects the services(s) I performed and [...] (01/23/23 09:04:00) (more content not included)... Normal [facility] Comment on above: Result Comment: Elec tronically Signed By: Clark CLEMENS MD\.br\Date and Time Signed: 01/23/23 09:41 EST\.br\Electronically Co-Signed By: Antionette Huizar\.br\Date and Time Co-Signed: 01/23/23 09:39 EST Physician Orderon 01-21-2023 Physician Order [id number] Normal [facility] Automated erythrocytes count in urine sediment (number/area)Ordered By: Enrique Lucas on 01-20-2023 RBC Auto (Urine sed) [#/Area] 10-19 [HPF] 0-4 [facility] Automated leukocytes count i n urine sediment (number/area)Ordered By: Enrique Lucas on 01-20-2023 WBC Auto (Urine sed) [#/Area] 5-9 [HPF] 0-4 [facility] Basophils Auto (Bld) [#/Vol] Ordered By: Enrique Lucas on 01-20-2023 Basophils (Bld) [#/Vol] 0.1 10*3/uL 0.0-0.2 [facility] Basophils/100 WBC Auto (Bld) Ordered By: Enrique Lucas on 01-20-2023 Basophils/100 WBC (Bld) 0.7 % . [facility] Bilirubin Test strip Ql (U)O rdered By: Enrique Lucas on 01-20-2023 Bilirubin Ql (U) Negative Negative [facility] C reactive protein [Mass/vol ume] in Serum or PlasmaOrdered By: Enrique Lucas on 01-20-2023 CRP [Mass/Vol] 0.5 mg/dL 0.0-0.5 [facility] C-Reactive Proteinon 023 C-Reactive Protein 0.5 mg/dL Normal 0.0-0.5 [facility] Comment on above: Result Comment: PERF ORMED BY: [place] [address] PATHOLOGIST LIGHTING ADVISER OLIMPIA MORA M.D. Performed By: #### B MP #### [facility] [address] [place] [address] Color Auto (U)Ordered By: Marybeth Lucas on 01-20-2023 Color (U) Yellow Yellow [facility] Complement C3on 01-20-2023 Complement C3 182 mg/dL High 82-167 [facility] Comment on above: Result Comment: Perf ormed at: - [facility] [address] [id number] Facilities And Grounds Director: Chris Urban PhD, Phone: [phone] Performed By: #### B MP #### [facility] [address] [place] [address] [place] Complement C4on 01-20-2023 Complement C4 29 mg/dL Normal 12-38 [facility] Comment on above: Result Comment: PERF ORMED BY: [place] [address] PATHOLOGIST LIGHTING ADVISER OLIMPIA MORA M.D. Performed By: #### B MP #### [address] Complete Blood Count Auto Di ffon 01-20-2023 Basophils (Bld) [#/Vol] 0.1 10*3/uL Normal 0.0-0.2 [facility] Comment on above: Performed By: #### B MP #### [place] [address] [place] Basophils/100 WBC (Bld) 0.7 % Normal . [facility] Comment on above: Performed By: #### B MP #### [place] [address] [place] Eosinophils (Bld) [#/Vol] 0.2 10*3/uL Normal 0.0-0.45 [facility] Comment on above: Performed By: #### B MP #### [address] Eosinophils/100 WBC (Bld) 3.0 % Normal . [facility] Comment on above: Performed By: #### B MP #### [address] Erythrocyte distribution width (RBC) [Ratio] 13.0 % Normal 11.9-15.3 [facility] Comment on above: Performed By: #### B MP #### [address] Hematocrit (Bld) [Volume fraction] 41.5 % Normal 34.0-46.4 [facility] Comment on above: Performed By: #### B MP #### [address] Hemoglobin (Bld) [Mass/Vol] 14.0 g/dL Normal 11.8-15.4 [facility] Comment on above: Performed By: #### B MP #### [address] Lymphocytes (Bld) [#/Vol] 2.6 10*3/uL Normal 1.00-4.8 [facility] Comment on above: Performed By: #### B MP #### [address] Lymphocytes/100 WBC (Bld) 35.4 % Normal . [facility] Comment on above: Performed By: #### B MP #### [address] MCH (RBC) [Entitic mass] 30.2 pg Normal 24.7-34.3 [facility] Comment on above: Performed By: #### B MP #### [address] MCV (RBC) [Entitic vol] 89.4 fL Normal 80-100 [facility] Comment on above: Performed By: #### B MP #### [address] Mean Corpuscular HGB Conc 33.7 g/dL Normal 32.0-35.0 [facility] Comment on above: Performed By: #### B MP #### [address] Monocytes (Bld) [#/Vol] 0.4 10*3/uL Normal 0.0-0.8 [facility] Comment on above: Performed By: #### B MP #### [address] Monocytes/100 WBC (Bld) 5.3 % Normal . [facility] Comment on above: Performed By: #### B MP #### [address] Neutrophils (Bld) [#/Vol] 4.1 10*3/uL Normal 1.8-7.7 [facility] Comment on above: Performed By: #### B MP #### [address] Neutrophils/100 WBC (Bld) 55.6 % Normal . [facility] Comment on above: Performed By: #### B MP #### [address] NRBC% 0.1 /100{WBC} Normal 0-0.5 [facility] Comment on above: Performed By: #### B MP #### [address] Platelet mean volume (Bld) [Entitic vol] 8.5 fL Normal 6.3-10.7 [facility] Comment on above: Performed By: #### B MP #### [address] Platelets (Bld) [#/Vol] 253 10*3/uL Normal 150-450 [facility] Comment on above: Performed By: #### B MP #### [address] RBC (Bld) [#/Vol] 4.65 10*6/uL Normal 3.60-5.00 [facility] Comment on above: Performed By: #### B MP #### [address] WBC (Bld) [#/Vol] 7.4 10*3/uL Normal 3.8-11.6 [facility] Comment on above: Performed By: #### B MP #### [address] Creatinineon 01-20-2023 Creatinine [Mass/Vol] 0.70 mg/dL Normal 0.60-1.20 [facility] Comment on above: Performed By: #### C 4, C3 #### [facility] , #### ADDONUAPLUS, CBC, CRP, CUU, CREAT, ESR #### [address] GFR/1.73 sq M.predicted MDRD (S/P/Bld) [Vol rate/Area] mL/min/{1.73_m2} Normal [facility] Comment on above: Performed By: #### C 4, C3 #### [facility] , #### ADDONUAPLUS, CBC, CRP, CUU, CREAT, ESR #### [facility] [address] Creatinine [Mass/volume] in Serum or PlasmaOrdered By: Enrique Lucas on 01-20-2023 Creatinine [Mass/Vol] 0.70 mg/dL 0.60-1.20 [facility] Dipstick and Microscopicon 1 03-22-2022 Appearance (U) Clear Normal Clear [facility] Comment on above: Order Comment: Name Collection Type:: Clean-Voided Midstream Performed By: #### C 4, C3 #### [facility] , #### ADDONUAPLUS, CBC, CRP, CUU, CREAT, ESR #### [facility] [address] [place] [address] Bacteria,Urine 1+ High None Seen [facility] Comment on above: Order Comment: Name Collection Type:: Clean-Voided Midstream Performed By: #### C 4, C3 #### [facility] , #### ADDONUAPLUS, CBC, CRP, CUU, CREAT, ESR #### [facility] [address] [place] [address] Bilirubin,Urine Negative Normal Negative [facility] Comment on above: Order Comment: Name Collection Type:: Clean-Voided Midstream Performed By: #### C 4, C3 #### [facility] , #### ADDONUAPLUS, CBC, CRP, CUU, CREAT, ESR #### [facility] [address] [place] [address] [place] Color (U) Yellow Normal Yellow [facility] Comment on above: Order Comment: Name Collection Type:: Clean-Voided Midstream Performed By: #### C 4, C3 #### [facility] , #### ADDONUAPLUS, CBC, CRP, CUU, CREAT, ESR #### [facility] [address] [place] [address] [place] Glucose Ql (U) Normal Normal Normal [facility] Comment on above: Order Comment: Name Collection Type:: Clean-Voided Midstream Performed By: #### C 4, C3 #### [facility] , #### ADDONUAPLUS, CBC, CRP, CUU, CREAT, ESR #### [facility] [address] [place] [address] Hyaline Casts,Urine None Seen Normal 0-8 [facility] Comment on above: Order Comment: Name Collection Type:: Clean-Voided Midstream Result Comment: PERF ORMED BY: [place] [address] PATHOLOGIST LIGHTING ADVISER OLIMPIA MORA M.D. Performed By: #### C 4, C3 #### [facility] , #### ADDONUAPLUS, CBC, CRP, CUU, CREAT, ESR #### [address] Ketones Ql (U) Negative Normal Negative [facility] Comment on above: Order Comment: Name Collection Type:: Clean-Voided Midstream Performed By: #### C 4, C3 #### [facility] , #### ADDONUAPLUS, CBC, CRP, CUU, CREAT, ESR #### [address] Leukocyte esterase Test strip Ql (U) 2+ High Negative [facility] Comment on above: Order Comment: Name Collection Type:: Clean-Voided Midstream Performed By: #### C 4, C3 #### [facility] , #### ADDONUAPLUS, CBC, CRP, CUU, CREAT, ESR #### [facility] [address] [place] [address] Nitrite,Urine Negative Normal Negative [facility] Comment on above: Order Comment: Name Collection Type:: Clean-Voided Midstream Performed By: #### C 4, C3 #### [facility] , #### ADDONUAPLUS, CBC, CRP, CUU, CREAT, ESR #### [facility] [address] [place] [address] Occult Blood,Urine Trace High Negative [facility] Comment on above: Order Comment: Name Collection Type:: Clean-Voided Midstream Performed By: #### C 4, C3 #### [facility] , #### ADDONUAPLUS, CBC, CRP, CUU, CREAT, ESR #### [facility] [address] [place] [address] pH (U) 6.0 [pH] Normal 5.0-9.0 [facility] Comment on above: Order Comment: Name Collection Type:: Clean-Voided Midstream Performed By: #### C 4, C3 #### [facility] , #### ADDONUAPLUS, CBC, CRP, CUU, CREAT, ESR #### [address] Protein,Urine Negative Normal Negative [facility] Comment on above: Order Comment: Name Collection Type:: Clean-Voided Midstream Performed By: #### C 4, C3 #### [facility] , #### ADDONUAPLUS, CBC, CRP, CUU, CREAT, ESR #### [facility] [address] [place] [address] RBC,Urine 10-19 High 0-4 [facility] Comment on above: Order Comment: Name Collection Type:: Clean-Voided Midstream Performed By: #### C 4, C3 #### [facility] , #### ADDONUAPLUS, CBC, CRP, CUU, CREAT, ESR #### [facility] [address] [place] [address] Specificy [place],Urine 1.016 Normal 1.001-1.03 0 [facility] Comment on above: Order Comment: Name Collection Type:: Clean-Voided Midstream Performed By: #### C 4, C3 #### [facility] , #### ADDONUAPLUS, CBC, CRP, CUU, CREAT, ESR #### [address] [place] [address] [place] Squamous Epithelial Cell,Urine 3-4 High 0-2 [facility] Comment on above: Order Comment: Name Collection Type:: Clean-Voided Midstream Performed By: #### C 4, C3 #### [facility] , #### ADDONUAPLUS, CBC, CRP, CUU, CREAT, ESR #### [facility] [address] [place] [address] Urobilinogen,Urine Normal Normal Normal [facility] Comment on above: Order Comment: Name Collection Type:: Clean-Voided Midstream Performed By: #### C 4, C3 #### [facility] , #### ADDONUAPLUS, CBC, CRP, CUU, CREAT, ESR #### [facility] [address] [place] [address] WBC,Urine 5-9 High 0-4 [facility] Comment on above: Order Comment: Name Collection Type:: Clean-Voided Midstream Performed By: #### C 4, C3 #### [facility] , #### ADDONUAPLUS, CBC, CRP, CUU, CREAT, ESR #### [facility] [address] [place] [address] Eosinophils Auto (Bld) [#/Vo l]Ordered By: Enrique Lucas on 01-20-2023 Eosinophils (Bld) [#/Vol] 0.2 10*3/uL 0.0-0.45 [facility] Eosinophils/100 WBC Auto (Bl d)Ordered By: Enrique Lucas on 01-20-2023 Eosinophils/100 WBC (Bld) 3.0 % . [facility] Erythrocyte Sedimentation Ra jeniffer 01-20-2023 ESR (Bld) [Velocity] 13 mm/h Normal 0-19 [facility] Comment on above: Result Comment: PERF ORMED BY: [place] [address] PATHOLOGIST LIGHTING ADVISER OLIMPIA MORA M.D. Performed By: #### B MP #### [facility] [address] [place] [id number] [facility] Erythrocyte distribution wid th Auto (RBC) [Ratio]Ordered By: Enrique Lucas on 01-20-2023 Erythrocyte distribution width (RBC) [Ratio] 13.0 % 11.9-15.3 [facility] Erythrocyte sedimentation ra te by Photometric methodOrdered By: Enrique Lucas on 01-20-2023 ESR Photometric method (Bld) [Velocity] 13 mm/hr 0-19 [facility] Hematocrit Auto (Bld) [Volum e fraction]Ordered By: Enrique Lucas on 01-20-2023 Hematocrit (Bld) [Volume fraction] 41.5 % 34.0-46.4 [facility] Hemoglobin [Mass/volume] in BloodOrdered By: Enrique Lucas on 01-20-2023 Hemoglobin (Bld) [Mass/Vol] 14.0 g/dL 11.8-15.4 [facility] Ketones Auto test strip (U) [Mass/Vol]Ordered By: Enrique Lucas on 01-20-2023 Ketones (U) [Mass/Vol] Negative Negative [facility] - UrinalysisOrder ed By: Enrique Lucas on 01-20-2023 Hyaline casts LM Ql (Urine sed) None seen [LPF] 0-8 [facility] Leukocytes [#/volume] correc dave for nucleated erythrocytes in Blood by Automated counOrdered By: Enrique Lucas on 01-20-2023 WBC corrected for nucl RBC Auto (Bld) [#/Vol] 7.4 10*3/uL 3.8-11.6 [facility] Lymphocytes Auto (Bld) [#/Vo l]Ordered By: Enrique Lucas on 01-20-2023 Lymphocytes (Bld) [#/Vol] 2.6 10*3/uL 1.00-4.8 [facility] Lymphocytes/100 WBC Auto (Bl d)Ordered By: Enrique Lucas on 01-20-2023 Lymphocytes/100 WBC (Bld) 35.4 % . [facility] MCH Auto (RBC) [Entitic mass ]Ordered By: Enrique Lucas on 01-20-2023 MCH (RBC) [Entitic mass] 30.2 pg 24.7-34.3 [facility] MCHC Auto (RBC) [Mass/Vol]Or dered By: Enrique Lucas on 01-20-2023 MCHC (RBC) [Mass/Vol] 33.7 g/dL 32.0-35.0 [facility] MCV Auto (RBC) [Entitic vol] Ordered By: Enrique Lucas on 01-20-2023 MCV (RBC) [Entitic vol] 89.4 fL 80-100 [facility] Monocytes Auto (Bld) [#/Vol] Ordered By: Enrique Lucas on 01-20-2023 Monocytes (Bld) [#/Vol] 0.4 10*3/uL 0.0-0.8 [facility] Monocytes/100 WBC Auto (Bld) Ordered By: Enrique Lucas on 01-20-2023 Monocytes/100 WBC (Bld) 5.3 % . [facility] Neutrophils Auto (Bld) [#/Vo l]Ordered By: Enriqeu Lucas on 01-20-2023 Neutrophils (Bld) [#/Vol] 4.1 10*3/uL 1.8-7.7 [facility] Neutrophils/100 WBC Auto (Bl d)Ordered By: Enrique Lucas on 01-20-2023 Neutrophils/100 WBC (Bld) 55.6 % . [facility] Nitrite Test strip Ql (U)Ord ered By: Enrique Lucas on 01-20-2023 Nitrite Ql (U) Negative Negative [facility] No Panel InformationOrdered By: Enrique Lucas on 01-20-2023 Estimated GFR (CKD-EPI) > 60.0 mL/Min [facility] Creatinine Clearance (Chem N/A [facility] Nucleated erythrocytes [Pres ence] in Blood by Automated countOrdered By: Enrique Lucas on 01-20-2023 Nucleated RBC Auto Ql (Bld) 0.1 /100{WBC} 0-0.5 [facility] Platelet mean volume Auto (B ld) [Entitic vol]Ordered By: Enrique Lucas on 01-20-2023 Platelet mean volume (Bld) [Entitic vol] 8.5 fL 6.3-10.7 [facility] Platelets Auto (Bld) [#/Vol] Ordered By: Enrique Lucas on 01-20-2023 Platelets (Bld) [#/Vol] 253 10*3/uL 150-450 [facility] Protein Auto test strip (U) [Mass/Vol]Ordered By: Enrique Lucas on 01-20-2023 Protein (U) [Mass/Vol] Negative Negative [facility] RBC Auto (Bld) [#/Vol]Ordere d By: Enrique Lucas on 01-20-2023 RBC (Bld) [#/Vol] 4.65 10*6/uL 3.60-5.00 [facility] Specific gravity Auto test s trip (U) [Rel density]Ordered By: Enrique Lucas on 01-20-2023 Specific gravity (U) [Rel density] 1.016 1.001-1.03 0 [facility] Squamous epithelial cells de tection in urine sediment by light microscopyOrdered By: Enrique Lucas on 01-20-2023 Epithelial cells.squamous LM Ql (Urine sed) 3-4 [HPF] 0-2 [facility] Urine Cultureon 01-20-2023 Bacteria identified Cx Nom (U) 20,000 colonies/ml mixed bacterial skin contaminants 2 Days PERFORMED BY: [place] [address] PATHOLOGIST LIGHTING ADVISER OLIMPIA MORA M.D. [facility] Comment on above: Performed By: #### B MP #### [address] Urine bacteria detection by automated methodOrdered By: Enrique Lucas on 01-20-2023 Bacteria Auto Ql (U) 1+ None Seen [facility] Urine clarity by refractomet ry automatedOrdered By: Enrique Lucas on 01-20-2023 Clarity Refractometry automated (U) Clear Clear [facility] Urine glucose measurement by automated test strip (mass/volume)Ordered By: Enrique Lucas on 01-20-2023 Glucose Auto test strip (U) [Mass/Vol] Normal mg/dL Normal [facility] Urine hemoglobin detection b y automated test stripOrdered By: Enrique Lucas on 01-20-2023 Hemoglobin Auto test strip Ql (U) Trace Negative [facility] Urine leukocyte esterase det ection by automated test stripOrdered By: Enrique Lucas on 01-20-2023 Leukocyte esterase Auto test strip Ql (U) 2+ Negative [facility] Urobilinogen Auto test strip (U) [Mass/Vol]Ordered By: Enrique Lucas on 01-20-2023 Urobilinogen (U) [Mass/Vol] Normal mg/dL Normal [facility] WBC Auto (Bld) [#/Vol]Ordere d By: Enrique Lucas on 01-20-2023 WBC (Bld) [#/Vol] 7.4 10*3/uL 3.8-11.6 [facility] pH Auto test strip (U)Ordere d By: Enrique Lucas on 01-20-2023 pH (U) 6.0 [pH] 5.0-9.0 [facility] Office Visiton 01-09-2023 Follow-up visit [id number] Ada Kirkland 1990 F Date Provider Department Center 01/09/2023 Danilo6-ELANA RAMIREZ [facility] Family History Problem Relation Age of Onset Heart attack Father 44 Coronary artery disease Father Clotting disorder Father Family Status - Relation Status Age at Father Alive Level of Service:73850 [place] OFFICE/OUTPATIENT ESTABLISHED MOD MDM 30-39 MIN Normal [facility] HCG ( test) [place].rapi d Ql (U)Ordered By: LITA BLACKMAN on 12-29-2022 HCG ( test) Ql (U) Negative [facility] HCG,Urineon 12-29-2022 Beta HCG ( test) Ql (U) Negative Normal [facility] Comment on above: Result Comment: PERF ORMED BY: [facility] [address] [place] [address] PATHOLOGIST LIGHTING ADVISER OLIMPIA MORA M.D. Performed By: #### U HCG #### [facility] [address] [place] [address] [place] Bin 12-29-2022 L ------ Specimen: [id number] Received: 12/29/22 Status: FADIA Espinosa Num: [id number] Spec Type: Surgical Subm Dr: Dasha Garcia DO Tissues: A Uterus w/ or w/o tubes ovaries except neoplastic or prolap (CERVIX, DARIO TU Procedures: , Gross/Micro L5 Age/ Patient Sex Location Account Attending Physician Morgan Kirkland 32/F [place] [id number] Dasha Garcia DO SPEC NUM: [id number] RECD: 12/29/22 STATUS: FADIA ESPINOSA NUM: [id number] STEVAN: 12/29/[address]: Dasha Garcia DO ENTERED: 12/29/[address] [facility] DR: SPEC TYPE: Surgical DEPT: S ORDERED: , Gross/Micro [...] left sided pelvic pain menorrhagia adenomyosis Specimen: [id number] Received: 12/29/22 Status: FADIA Jesús Num: [id number] Spec Type: Surgical Subm Dr: Dasha Garcia DO Tissues: A Uterus w/ or w/o tubes ovaries except neoplastic or prolap (CERVIX, DARIO TU Procedures: , Gross/Micro L5 Patient: Morgan Kirkland [id number] (Continued) Specimen: [id number] Received: 12/29/22 (Continued) Signed (signature on file) Daniel Okeefe MD 12/30/222016 Specimen: [id number] Received: 12/29/22 Status: FADIA Jesús Num: [id number] Spec Type: Surgical Subm Dr: Dasha Garcia DO Tissues: A Uterus w/ or w/o tubes ovaries except neoplastic or prolap (CERVIX, DARIO TU Procedures: , Gross/Micro L5 Patient: Morgan Kirkland [id number] (Continued) Specimen: [id number] Received: 12/29/22 (Continued) Gross Description Received in [...] endometrium averages 0.2 cm in thickness. The pink-conryo, trabecular myometrium measures up to 2.0 cm in thickness. No myometrial lesions or cystic change are identified. The right purple-yanez fimbriated fallopian tube measures 6.0 x 1.2 x 0.8 cm and has a pinpoint lumen on cut section. The left conroy-yanez, fimbriated fallopian tube measures 7.8 x 1.0 x 0.4 cm and has a pinpoint lumen on cut section. Bag Bundler sections are submitted in 8 cassettes as follows: A1 - Anterior cervix A2 - Posterior cervix A3-A4 - Anterior endomyometrium A5-A6 - Posterior endomyometrium A7 - Right fallopian tube A8 - Left fallopian tube Microscopic Description Eight H E slides reviewed. The microscopic examination confirms the diagnosis. CPT Codes 89824 Specimen: [id number] Received: 12/29/22 Status: FADIA Espinosa Num: [id number] Spec Type: Surgical Subm Dr: Dasha Garcia, DO Tissues: A Uterus w/ or w/o tubes ovaries except neoplastic or prolap (CERVIX, DARIO TU Procedures: HE/12, Gross/Micro L (more content not included)... Normal [facility] Activated partial thrombopla stin time (aPTT) in platelet poor plasma by coagulation aOrdered By: Dasha Garcia on 12-15-2022 aPTT Coag (PPP) [Time] 28.2 s 25.1-36.5 [facility] Comment on above: A hematocrit value g reater than 55% may lead to inaccurate results in coagulation testing. Patients having hematocrit values >55% require a special collection tube for coagulation studies. Please contact the laboratory at [phone] for redraw instructions. Basic Metabolic Panelon 10 Anion gap [Moles/Vol] 8.5 mmol/L Normal 6.0-15.0 [facility] Comment on above: Performed By: #### B MP #### [address] Calcium [Mass/Vol] 9.4 mg/dL Normal 8.6-10.3 [facility] Comment on above: Result Comment: PERF ORMED BY: [place] [address] PATHOLOGIST LIGHTING ADVISER OLIMPIA MORA M.D. Performed By: #### B MP #### [facility] [address] [place] [address] [place] Chloride [Moles/Vol] 105 mmol/L Normal 98-107 [facility] Comment on above: Performed By: #### B MP #### [facility] [address] [place] [address] [place] CO2 [Moles/Vol] 28.6 mmol/L Normal 21.0-31.0 [facility] Comment on above: Performed By: #### B MP #### [facility] [address] [place] [address] [place] Creatinine [Mass/Vol] 0.86 mg/dL Normal 0.60-1.20 [facility] Comment on above: Performed By: #### B MP #### [place] [address] [place] GFR/1.73 sq M.predicted MDRD (S/P/Bld) [Vol rate/Area] mL/min/{1.73_m2} Normal [facility] Comment on above: Performed By: #### B MP #### [address] Glucose [Mass/Vol] 90 mg/dL Normal 70-100 [facility] Comment on above: Result Comment: [facility] Glucose Reference Range is dependent on time and content of last meal. Glucose of more than 200 mg/dL in a nonstressed, ambulatory subject supports the diagnosis of Diabetes Mellitus. ADA recommended reference range Performed By: #### B MP #### [address] Potassium [Moles/Vol] 4.1 mmol/L Normal 3.5-5.1 [facility] Comment on above: Performed By: #### B MP #### [place] [address] [place] Sodium [Moles/Vol] 138 mmol/L Normal 136-145 [facility] Comment on above: Performed By: #### B MP #### [address] Urea nitrogen [Mass/Vol] 9 mg/dL Normal 7-25 [facility] Comment on above: Performed By: #### B MP #### [place] [address] [place] Basophils Auto (Bld) [#/Vol] Ordered By: Dasha Garcia on 12-15-2022 Basophils (Bld) [#/Vol] 0.0 10*3/uL 0.0-0.2 [facility] Basophils/100 WBC Auto (Bld) Ordered By: Dasha Garcia on 12-15-2022 Basophils/100 WBC (Bld) 0.6 % . [facility] Calcium [Mass/volume] in Ser um or PlasmaOrdered By: Dasha Garcia on 12-15-2022 Calcium [Mass/Vol] 9.4 mg/dL 8.6-10.3 [facility] Carbon dioxide, total [Moles /volume] in Serum or PlasmaOrdered By: Dasha Garcia on 12-15-2022 CO2 [Moles/Vol] 28.6 mmol/L 21.0-31.0 [facility] Chloride [Moles/volume] in S misael or PlasmaOrdered By: Dasha Garcia on 12-15-2022 Chloride [Moles/Vol] 105 mmol/L 98-107 [facility] Complete Blood Count Auto Di ffon 12-15-2022 Basophils (Bld) [#/Vol] 0.0 10*3/uL Normal 0.0-0.2 [facility] Comment on above: Result Comment: PERF ORMED BY: [place] [address] PATHOLOGIST LIGHTING ADVISER OLIMPIA MORA M.D. Performed By: #### C BC #### [address] Basophils/100 WBC (Bld) 0.6 % Normal . [facility] Comment on above: Performed By: #### C BC #### [address] Eosinophils (Bld) [#/Vol] 0.2 10*3/uL Normal 0.0-0.45 [facility] Comment on above: Performed By: #### C BC #### [place] [address] [place] Eosinophils/100 WBC (Bld) 1.9 % Normal . [facility] Comment on above: Performed By: #### C BC #### [address] Erythrocyte distribution width (RBC) [Ratio] 13.0 % Normal 11.9-15.3 [facility] Comment on above: Performed By: #### C BC #### [place] [address] [place] Hematocrit (Bld) [Volume fraction] 40.0 % Normal 34.0-46.4 [facility] Comment on above: Performed By: #### C BC #### [address] Hemoglobin (Bld) [Mass/Vol] 13.6 g/dL Normal 11.8-15.4 [facility] Comment on above: Performed By: #### C BC #### [address] Lymphocytes (Bld) [#/Vol] 2.3 10*3/uL Normal 1.00-4.8 [facility] Comment on above: Performed By: #### C BC #### [address] Lymphocytes/100 WBC (Bld) 28.8 % Normal . [facility] Comment on above: Performed By: #### C BC #### [address] MCH (RBC) [Entitic mass] 30.0 pg Normal 24.7-34.3 [facility] Comment on above: Performed By: #### C BC #### [address] MCV (RBC) [Entitic vol] 88.1 fL Normal 80-100 [facility] Comment on above: Performed By: #### C BC #### [address] [address] Mean Corpuscular HGB Conc 34.0 g/dL Normal 32.0-35.0 [facility] Comment on above: Performed By: #### C BC #### [address] Monocytes (Bld) [#/Vol] 0.4 10*3/uL Normal 0.0-0.8 [facility] Comment on above: Performed By: #### C BC #### [address] Monocytes/100 WBC (Bld) 5.1 % Normal . [facility] Comment on above: Performed By: #### C BC #### [facility] [address] [place] [address] [place] Neutrophils (Bld) [#/Vol] 5.2 10*3/uL Normal 1.8-7.7 [facility] Comment on above: Performed By: #### C BC #### [facility] [address] [place] [id number] [facility] Neutrophils/100 WBC (Bld) 63.6 % Normal . [facility] Comment on above: Performed By: #### C BC #### [facility] [address] NRBC% 0.1 /100{WBC} Normal 0-0.5 [facility] Comment on above: Performed By: #### C BC #### [address] Platelet mean volume (Bld) [Entitic vol] 8.2 fL Normal 6.3-10.7 [facility] Comment on above: Performed By: #### C BC #### [place] [address] [place] Platelets (Bld) [#/Vol] 235 10*3/uL Normal 150-450 [facility] Comment on above: Performed By: #### C BC #### [address] RBC (Bld) [#/Vol] 4.53 10*6/uL Normal 3.60-5.00 [facility] Comment on above: Performed By: #### C BC #### [facility] [address] WBC (Bld) [#/Vol] 8.1 10*3/uL Normal 3.8-11.6 [facility] Comment on above: Performed By: #### C BC #### [address] Creatinine [Mass/volume] in Serum or PlasmaOrdered By: Dasha Garcia on 12-15-2022 Creatinine [Mass/Vol] 0.86 mg/dL 0.60-1.20 [facility] Eosinophils Auto (Bld) [#/Vo l]Ordered By: Dasha Garcia on 12-15-2022 Eosinophils (Bld) [#/Vol] 0.2 10*3/uL 0.0-0.45 [facility] Eosinophils/100 WBC Auto (Bl d)Ordered By: Dasha Garcia on 12-15-2022 Eosinophils/100 WBC (Bld) 1.9 % . [facility] Erythrocyte distribution wid th Auto (RBC) [Ratio]Ordered By: Dasha Garcia on 12-15-2022 Erythrocyte distribution width (RBC) [Ratio] 13.0 % 11.9-15.3 [facility] Glucose [Mass/volume] in Ser um or PlasmaOrdered By: Dasha Garcia on 12-15-2022 Glucose [Mass/Vol] 90 mg/dL 70-100 [facility] Comment on above: ADA recommended refe rence rangeRandom Glucose Reference Range is dependent on time and content of last meal. Glucose of more than 200 mg/dL in a nonstressed, ambulatory subject supports the diagnosis of Diabetes Mellitus. Hematocrit Auto (Bld) [Volum e fraction]Ordered By: Dasha Garcia on 12-15-2022 Hematocrit (Bld) [Volume fraction] 40.0 % 34.0-46.4 [facility] Hemoglobin [Mass/volume] in BloodOrdered By: Dasha Garcia on 12-15-2022 Hemoglobin (Bld) [Mass/Vol] 13.6 g/dL 11.8-15.4 [facility] INR in Platelet poor plasma by Coagulation assayOrdered By: Dasha Garcia on 12-15-2022 INR Coag (PPP) [Relative time] 0.9 {INR} [facility] Comment on above: INR Therapeutic Rang [...] RBC Auto (Bld) [#/Vol] 8.1 10*3/uL 3.8-11.6 [facility] Lymphocytes Auto (Bld) [#/Vo l]Ordered By: Dasha Garcia on 12-15-2022 Lymphocytes (Bld) [#/Vol] 2.3 10*3/uL 1.00-4.8 [facility] Lymphocytes/100 WBC Auto (Bl d)Ordered By: Dasha Garcia on 12-15-2022 Lymphocytes/100 WBC (Bld) 28.8 % . [facility] MCH Auto (RBC) [Entitic mass ]Ordered By: Dasha Garcia on 12-15-2022 MCH (RBC) [Entitic mass] 30.0 pg 24.7-34.3 [facility] MCHC Auto (RBC) [Mass/Vol]Or dered By: Dasha Garcia on 12-15-2022 MCHC (RBC) [Mass/Vol] 34.0 g/dL 32.0-35.0 [facility] MCV Auto (RBC) [Entitic vol] Ordered By: Dasha Garcia on 12-15-2022 MCV (RBC) [Entitic vol] 88.1 fL 80-100 [facility] Monocytes Auto (Bld) [#/Vol] Ordered By: Dasha Garcia on 12-15-2022 Monocytes (Bld) [#/Vol] 0.4 10*3/uL 0.0-0.8 [facility] Monocytes/100 WBC Auto (Bld) Ordered By: Dasha Garcia on 12-15-2022 Monocytes/100 WBC (Bld) 5.1 % . [facility] Neutrophils Auto (Bld) [#/Vo l]Ordered By: Dasha Garcia on 12-15-2022 Neutrophils (Bld) [#/Vol] 5.2 10*3/uL 1.8-7.7 [facility] Neutrophils/100 WBC Auto (Bl d)Ordered By: Dasha Garcia on 10-02-2023 Neutrophils/100 WBC (Bld) 63.6 % . [facility] No Panel InformationOrdered By: Dasha Garcia on 12-15-2022 Estimated GFR (CKD-EPI) > 60.0 mL/Min [facility] Creatinine Clearance (Chem N/A [facility] Nucleated erythrocytes [Pres ence] in Blood by Automated countOrdered By: Dasha Garcia on 12-15-2022 Nucleated RBC Auto Ql (Bld) 0.1 /100{WBC} 0-0.5 [facility] PST Type and Screenon 2022 ABO and Rh group Nom (Bld) Blood group A Rh(D) positive Normal [facility] Comment on above: Order Comment: Date of Surgery: 20221229 Partial Thromboplastin Timeo n 12-15-2022 aPTT Coag (Bld) [Time] 28.2 s Normal 25.1-36.5 [facility] Comment on above: Result Comment: A he matocrit value greater than 55% may lead to inaccurate results in coagulation testing. Patients having hematocrit values >55% require a special collection tube for coagulation studies. Please contact the laboratory at [phone] for redraw instructions. PERFORMED BY: [place] [address] PATHOLOGIST LIGHTING ADVISER OLIMPIA MORA M.D. Performed By: #### P T, PTT #### [address] Platelet mean volume Auto (B ld) [Entitic vol]Ordered By: Dasha Garcia on 12-15-2022 Platelet mean volume (Bld) [Entitic vol] 8.2 fL 6.3-10.7 [facility] Platelets Auto (Bld) [#/Vol] Ordered By: Dasha Garcia on 12-15-2022 Platelets (Bld) [#/Vol] 235 10*3/uL 150-450 [facility] Potassium [Moles/volume] in Serum or PlasmaOrdered By: Dasha Garcia on 12-15-2022 Potassium [Moles/Vol] 4.1 mmol/L 3.5-5.1 [facility] Prothrombin Time INRon 10-02 -2023 INR Coag (PPP) [Relative time] 0.9 {INR} Normal [facility] Comment on above: Result Comment: INR [...] Performed By: #### P T, PTT #### [facility] [address] [place] [id number] [facility] PT Coag (PPP) [Time] 11.3 s Normal 9.0-12.9 [facility] Comment on above: Result Comment: A he matocrit value greater than 55% may lead to inaccurate results in coagulation testing. Patients having hematocrit values >55% require a special collection tube for coagulation studies. Please contact the laboratory at [phone] for redraw instructions. Performed By: #### P T, PTT #### [facility] [address] [place] [address] [facility] Prothrombin time (PT)Ordered By: Dasha Garcia on 12-15-2022 PT Coag (PPP) [Time] 11.3 s 9.0-12.9 [facility] Comment on above: A hematocrit value g reater than 55% may lead to inaccurate results in coagulation testing. Patients having hematocrit values >55% require a special collection tube for coagulation studies. Please contact the laboratory at [phone] for redraw instructions. RBC Auto (Bld) [#/Vol]Ordere d By: Dasha Garcia on 12-15-2022 RBC (Bld) [#/Vol] 4.53 10*6/uL 3.60-5.00 [facility] Serum or plasma anion gap de terminationOrdered By: Dasha Garcia on 12-15-2022 Anion gap [Moles/Vol] 8.5 mmol/L 6.0-15.0 [facility] Sodium [Moles/volume] in Ser um or PlasmaOrdered By: Dasha Garcia on 12-15-2022 Sodium [Moles/Vol] 138 mmol/L 136-145 [facility] Urea nitrogen [Mass/volume] in Serum or PlasmaOrdered By: Dasha Garcia on 12-15-2022 Urea nitrogen [Mass/Vol] 9 mg/dL 7-25 [facility] WBC Auto (Bld) [#/Vol]Ordere d By: Dasha Garcia on 12-15-2022 WBC (Bld) [#/Vol] 8.1 10*3/uL 3.8-11.6 [facility] 36on 10-24-2022 36 It is still connecti ng and sensing well, reviewed her loop. Likely breast tissue inhibiting being able to feel. For now we will ct monitor , since device is sensing ECG well it does not seem to be migrated. If she is concerned we can order a CXR just to confirm placement I am ok with that [facility] Follow-Upon 09-10-2022 Follow-Up [id number] Ada Kirkland 1990 F Date Provider Department Center 09/10/2022 Danilo6-ELANA RAMIREZ RADHA Rivas [facility] Family History Problem Relation Age of Onset Heart attack Father 44 Coronary artery disease Father Clotting disorder Father Family Status - Relation Status Age at Father Alive Level of Service:34088 [place] OFFICE/OUTPATIENT ESTABLISHED MOD MDM 30-39 MIN Reason for Visit and Comments: Dizziness [028010] - Lightheaded and dizziness for a few weeks. Did stop last shiv. Is not as bad. Comes and goes- Wondering if she might have POTS. Family members has POTS. Has LOOP monitor in currently Normal [facility] Office Visiton 08-29-2022 Follow-up visit [id number] Ada Kirkland 1990 F Date Provider Department Center 08/29/2022 [id number] PAULA RADHA Nair Family History Problem Relation Age of Onset Heart attack Father 44 Coronary artery disease Father Clotting disorder Father Family Status - Relation Status Age at Father Alive Level of Service:31985 [place] POSTOP FOLLOW UP VISIT RELATED TO ORIGINAL PX Normal [facility] HPon 08-21-[address] [facility] [...] joint swell (more content not included)... Normal [facility] CALCULI, URINARYon 3 2,8 Dihydroxyadenine Normal [facility] Comment on above: Performed By: #### C ALCULI #### [facility] [address] [address] [address] Lela Okeefe Ammonium Acid Urate Normal [facility] Comment on above: Performed By: #### C ALCULI #### [facility] [address] [address] [address] Lela Okeefe Bilirubin Ql (U) Normal [facility] Comment on above: Performed By: #### C ALCULI #### [facility] [address] [address] [address] Lela Okeefe Ca Oxalate Dihydrate 60 % [facility] Comment on above: Performed By: #### C ALCULI #### [facility] [address] [address] [address] Lela Okeefe CaHPO4 (Brushite) Normal [facility] Comment on above: Performed By: #### C ALCULI #### [facility] [address] [address] [address] Lela Okeefe Calcium Bilirubinate Normal [facility] Comment on above: Performed By: #### C ALCULI #### [facility] [address] [address] [address] Lela Okeefe Calcium Carbonate Normal [facility] Comment on above: Performed By: #### C ALCULI #### [facility] [address] [address] [address] Lela Okeefe Calcium Oxalate Monohydrate 30 % [facility] Comment on above: Performed By: #### C ALCULI #### [facility] [address] [address] [address] Lela Okeefe Calcium Palmitate Normal [facility] Comment on above: Performed By: #### C ALCULI #### [facility] [address] [address] [address] Lela Okeefe Calcium Phosphate Normal [facility] Comment on above: Performed By: #### C ALCULI #### [facility] [address] [address] [address] Lela Okeefe Calcium Stearate [facility] Comment on above: Performed By: #### C ALCULI #### [facility] [address] [address] [address] Lela Okeefe Carbonate Apatite Normal [facility] Comment on above: Performed By: #### C ALCULI #### [facility] [address] [address] [address] Lela Okeefe Cellular Material [facility] Comment on above: Performed By: #### C ALCULI #### [facility] [address] [address] [address] Lela Okeefe Cholesterol [facility] Comment on above: Performed By: #### C ALCULI #### [facility] [address] [place] [address] Dr. Lela Okeefe Color (U) Conroy [facility] Comment on above: Performed By: #### C ALCULI #### [facility] [address] [address] [address] Lela Okeefe Comment Comment Normal [facility] Comment on above: Result Comment: Calc ium phosphate (hydroxyl form) includes hydroxyapatite, amorphous calcium phosphate, and whitlockite. Hydroxyapatite is the most common of the calcium phosphate salts found in human kidney stones. Performed By: #### C ALCULI #### [facility] [address] [address] [address] Lela Okeefe Result Comment: Calc ulus received wet. Wet calculi must be dried before analysis, which delays reporting of results. Leaving calculi wet (such as water, saline, blood, urine) may lead to changes in composition. Comment: Comment Normal [facility] Comment on above: Result Comment: Renita quintanilla questions regarding Calculi Analysis contact [facility] at: [phone]. Performed By: #### C ALCULI #### [facility] [address] [address] [address] Lela Okeefe Composition Comment [facility] Comment on above: Result Comment: Perc entage (Represents the % composition) Performed By: #### C ALCULI #### [facility] [address] [place] [address] Dr. Lela Okeefe Cystine Normal [facility] Comment on above: Performed By: #### C ALCULI #### [facility] [address] [place] [address] Dr. Lela Okeefe Disclaimer: Comment Normal [facility] Comment on above: Result Comment: This test was developed and its performance characteristics determined by [facility]. It has not been cleared or approved by the Food and Drug Administration. Performed By: #### C ALCULI #### [facility] [address] [place] [address] Dr. Lela Okeefe Dried Blood [facility] Comment on above: Performed By: #### C ALCULI #### [facility] [address] [place] [address] Dr. Lela Okeefe Drug or Metabolite Normal [facility] Comment on above: Performed By: #### C ALCULI #### [facility] [address] [place] [address] Dr. Lela Okeefe Hydroxyapatite 10 % Normal [facility] Comment on above: Performed By: #### C ALCULI #### [facility] [address] [place] [address] Dr. Lela Okeefe Mg NH4 PO4 (Struvite) Normal [facility] Comment on above: Performed By: #### C ALCULI #### [facility] [address] [place] [address] Dr. Lela Okeefe MgHPO4 (Newberyite) Normal [facility] Comment on above: Performed By: #### C ALCULI #### [facility] [address] [place] [address] Dr. Lela Okeefe Other component(s) Normal [facility] Comment on above: Performed By: #### C ALCULI #### [facility] [address] [place] [address] Dr. Lela Okeefe PDF . Normal [facility] Comment on above: Performed By: #### C ALCULI #### [facility] [address] [address] [address] Lela Okeefe Photo Comment Normal [facility] Comment on above: Result Comment: Phot ograph will follow under a separate cover Performed By: #### C ALCULI #### [facility] [address] [address] [address] Lela Okeefe Please note: Comment Normal [facility] Comment on above: Result Comment: Calc mirza report will follow via computer, mail or supervisor paste mixing delivery. Performed By: #### C ALCULI #### [facility] [address] [address] [address] Lela Okeefe Size 5x5 [facility] Comment on above: Result Comment: Sing le piece received. Performed By: #### C ALCULI #### [facility] [address] [address] [address] Lela Okeefe Sodium Acid Urate [facility] Comment on above: Performed By: #### C ALCULI #### [facility] [address] [address] [address] Lela Okeefe Source Comment [facility] Comment on above: Result Comment: Righ t Ureter Performed By: #### C ALCULI #### [facility] [address] [address] [address] Lela Okeefe Triamterene Normal [facility] Comment on above: Performed By: #### C ALCULI #### [facility] [address] [address] [address] Lela Okeefe Uric Acid [facility] Comment on above: Performed By: #### C ALCULI #### [facility] [address] [address] [address] Lela Okeefe Uric Acid Dihydrate Normal [facility] Comment on above: Performed By: #### C ALCULI #### [facility] [address] [address] [address] Lela Okeefe Weight 37 mg Normal [facility] Comment on above: Performed By: #### C ALCULI #### [facility] [address] [address] [address] Lela Okeefe Xanthine Normal [facility] Comment on above: Performed By: #### C ALCULI #### [facility] [address] [place], [place] [address] Dr. Lela Okeefe Consultation Noteon 07-19-19 23 Consultation Note [id number]:127 Normal [facility] Consultation Note [id number]:127 Normal [facility] Operative Reporton Operative Report [id number]:127 Normal [facility] PREG HCG QUALon 07-17-2022 , QUAL Negative Normal NEGATIVE [facility] Comment on above: Performed By: #### C BC #### [facility] [address] [address] [address] Lela Okeefe Documentationon 07-16-2022 Documentation [id number] Ada Kirkland M 1990 F Date Provider Department Center 07/16/2022 ELANA MORALES [facility] Family History Problem Relation Age of Onset Heart attack Father 44 Coronary artery disease Father Clotting disorder Father Family Status - Relation Status Age at Father Alive Normal [facility] Lab Reportson 07-15-2022 Lab Reports [id number]:127 Normal [facility] Office Visiton 07-15-2022 Follow-up visit [id number] Aad Kirkland 1990 F Date Provider Department Center 07/15/2022 OG ERVIN [facility] Family History Problem Relation Age of Onset Heart attack Father 44 Coronary artery disease Father Clotting disorder Father Family Status - Relation Status Age at Father Alive Level of Service:12033 [place] OFFICE/OUTPATIENT ESTABLISHED MOD MDM 30-39 MIN Normal [facility] CBC AUTO DIFFon 07-11-2022 BASO # 0.0 103/ul Normal 0.0-0.1 [facility] Comment on above: Performed By: #### C BC #### [facility] [address] [address] [address] Lela Okeefe Basophils/100 WBC (Bld) 0.5 % Normal 0.2-2.0 [facility] Comment on above: Performed By: #### C BC #### [facility] [address] [address] [address] Lela Okeefe EO # 0.1 103/ul Normal 0.0-0.7 [facility] Comment on above: Performed By: #### C BC #### [facility] [address] [place] [address] Dr. Lela Okeefe Eosinophils/100 WBC (Bld) 1.2 % Normal 0.9-7.0 [facility] Comment on above: Performed By: #### C BC #### [facility] [address] [place] [address] Dr. Lela Okeefe Erythrocyte distribution width (RBC) [Ratio] 12.3 % Normal 11.0-15.0 [facility] Comment on above: Performed By: #### C BC #### [facility] [address] [place] [address] Dr. Lela Okeefe Hematocrit (Bld) [Volume fraction] 41.7 % Normal 36.0-48.0 [facility] Comment on above: Performed By: #### C BC #### [facility] [address] [place] [address] Dr. Lela Okeefe Hemoglobin (Bld) [Mass/Vol] 14.1 g/dL Normal 12.0-16.0 [facility] Comment on above: Performed By: #### C BC #### [facility] [address] [place] [address] Dr. Lela Okeefe IG # 0.01 10e3/ul Normal 0.00-0.03 [facility] Comment on above: Performed By: #### C BC #### [facility] [address] [place] [address] Dr. Lela Okeefe IG % 0.2 % Normal 0.0-0.5 [facility] Comment on above: Performed By: #### C BC #### [facility] [address] [place] [address] Dr. Lela Okeefe LYMPH # 2.1 103/ul Normal 1.2-3.8 [facility] Comment on above: Performed By: #### C BC #### [facility] [address] [place] [address] Dr. Lela Okeefe Lymphocytes/100 WBC (Bld) 36.5 % Normal 20.5-60.0 [facility] Comment on above: Performed By: #### C BC #### [facility] [address] [place] [address] Dr. Lela Okeefe MANUAL DIFF REQ NO Normal [facility] Comment on above: Performed By: #### C BC #### [facility] [address] [place] [address] Dr. Lela Okeefe MCH (RBC) [Entitic mass] 30.2 pg Normal 26.7-34.0 [facility] Comment on above: Performed By: #### C BC #### [facility] [address] [place] [address] Dr. Lela Okeefe MCHC (RBC) [Mass/Vol] 33.8 g/dL Normal 29.9-35.2 [facility] Comment on above: Performed By: #### C BC #### [facility] [address] [place] [address] Dr. Lela Okeefe MCV (RBC) [Entitic vol] 89.3 fL Normal 81.0-99.0 [facility] Comment on above: Performed By: #### C BC #### [facility] [address] [place] [address] Dr. Lela Okeefe MONO # 0.5 103/ul Normal 0.3-0.8 [facility] Comment on above: Performed By: #### C BC #### [facility] [address] [place] [address] Dr. Lela Okeefe Monocytes/100 WBC (Bld) 8.4 % Normal 1.7-12.0 [facility] Comment on above: Performed By: #### C BC #### [facility] [address] [place] [address] Dr. Lela Okeefe NEUT # 3.0 103/ul Normal 1.4-6.5 [facility] Comment on above: Performed By: #### C BC #### [facility] [address] [place] [address] Dr. Lela Okeefe Neutrophils/100 WBC (Bld) 53.2 % Normal 43.0-75.0 [facility] Comment on above: Performed By: #### C BC #### [facility] [address] [place] [address] Dr. Lela Okeefe Platelet mean volume (Bld) [Entitic vol] 9.7 fL Normal 9.5-13.5 [facility] Comment on above: Performed By: #### C BC #### [facility] [address] [place] [address] Dr. Lela Okeefe PLT 234 103/ul Normal 150-450 [facility] Comment on above: Performed By: #### C BC #### [facility] [address] [place] [address] Dr. Lela Okeefe RBC 4.67 106/ul Normal 4.20-5.40 [facility] Comment on above: Performed By: #### C BC #### [facility] [address] [place] [address] Dr. Lela Okeefe WBC 5.6 103/ul Normal 4.0-11.0 [facility] Comment on above: Performed By: #### C BC #### [facility] [address] [place] [address] Dr. Lela Okeefe PROF CHEM 8 (BAS METB)on Anion gap [Moles/Vol] 12.5 mmol/L Normal [facility] Comment on above: Performed By: #### C BC #### [facility] [address] [place] [address] Dr. Lela Okeefe Calcium [Mass/Vol] 9.1 mg/dL Normal 8.5-10.1 [facility] Comment on above: Performed By: #### C BC #### [facility] [address] [address] [address] Lela Okeefe Chloride [Moles/Vol] 105 mmol/L Normal 98-107 [facility] Comment on above: Performed By: #### C BC #### [facility] [address] [place] [address] Dr. Lela Okeefe CO2 [Moles/Vol] 28.7 mmol/L Normal 21.0-32.0 [facility] Comment on above: Performed By: #### C BC #### [facility] [address] [place] [address] Dr. Lela Okeefe Creatinine [Mass/Vol] 0.73 mg/dL Normal 0.55-1.02 [facility] Comment on above: Performed By: #### C BC #### [facility] [address] [place] [address] Dr. Lela Okeefe EGFR-AF NIGERIEN >60 Normal >=60 [facility] Comment on above: Performed By: #### C BC #### [facility] [address] [place] [address] Dr. Lela Okeefe EGFR-NON AF NIGERIEN >60 Normal >=60 [facility] Comment on above: Performed By: #### C BC #### [facility] [address] [place] [address] Dr. Lela Okeefe Glucose [Mass/Vol] 81 mg/dL Normal 74-106 [facility] Comment on above: Performed By: #### C BC #### [facility] [address] [place] [address] Dr. Lela Okeefe Potassium [Moles/Vol] 4.2 mmol/L Normal 3.5-5.1 [facility] Comment on above: Performed By: #### C BC #### [facility] [address] [place] [address] Dr. Lela Okeefe Sodium [Moles/Vol] 142 mmol/L Normal 136-145 [facility] Comment on above: Performed By: #### C BC #### [facility] [address] [place] [address] Dr. Lela Okeefe Urea nitrogen [Mass/Vol] 11.0 mg/dL Normal 7.0-18.0 [facility] Comment on above: Performed By: #### C BC #### [facility] [address] [place] [address] Dr. Lela Okeefe Urea nitrogen/Creatinine [Mass ratio] 15.1 mg/mg Normal [facility] Comment on above: Performed By: #### C BC #### [facility] [address] [place] [address] Dr. Lela Okeefe PROTIMEon 07-11-2022 INR Coag (PPP) [Relative time] 0.97 {INR} Normal [facility] Comment on above: Performed By: #### C BC #### [facility] [address] [place] [address] Dr. Lela Okeefe INR GUIDELINES SEE BELOW Normal [facility] Comment on above: Result Comment: BAIRON RED INR: 2.0 - 3.0 CONDITIONS NOT LISTED BELOW 2.5 - 3.5 FOR PROSTHETIC HEART VALVE REPLACEMENT 2.5 - 3.5 RECURRENT THROMBOSIS Performed By: #### C BC #### [facility] [address] [place] [address] Dr. Lela Okeefe PT Coag (PPP) [Time] 10.3 s Normal 9.0-11.6 [facility] Comment on above: Performed By: #### C BC #### [facility] [address] [place] [address] Dr. Lela Okeefe PTTon 07-11-2022 aPTT Coag (Bld) [Time] 27.9 s Normal 22.3-36.2 [facility] Comment on above: Performed By: #### C BC #### [facility] [address] [place] [address] Dr. Lela Okeefe Consent for Procedure/Surger yon 07-01-2022 Consent for Procedure/Surgery [id number]:127 Normal [facility] Pre-Certification Formon Pre-Certification Form [id number]#1.00CD:127 Normal [facility] RAD - CT Reporton 06-30-2022 RAD - CT Report [id number]#1.00CD:127 Normal [facility] CT ABD/PELVIS WO CONon 06-02 CT ABD/PELVIS [...] by: IRIS FUNEZ Date: 2022-06-02 15:16 Normal [facility] RAD - MISCon 05-23-2022 [place] [facility] [id number]:127 Normal [facility] RAD - MISC [id number]#[id number]:127 Normal [facility] XR KUB 1 VIEWon 05-20-2022 XR KUB [...] by: ZAHRA MCCLENDON Date: 2022-05-20 14:39 Normal [facility] Ambulatory Visit Summaryon 0 05-19-2022 Ambulatory Visit Summary MORGAN KIRKLAND :1990 Visit Date:05/19/2022 Ambulatory Visit Instructions Your Diagnosis History of kidney stones Urinary frequency Urinary urgency Left sided abdominal pain Recurrent UTI Tests Performed Urnls Dip Stick Auto w/o Microscopy POC 34636 XR Abdomen 1 View -- Results Pending -- Please visit your patient portal for your results or contact your primary care physician. Your Care Team Attending Physician - Clark CLEMENS MD Primary Care Physician - DAVID NEWEBRRY MD This Is Your Medications List Contact [...] When: Where: [facility] [address] [place] [address]- Medications What When Instructions Unchanged metoprolol (Lopressor 25 mg oral tablet) Contact prescribing physician if questions or concerns Test Results Urnls Dip Stick Auto w/o Microscopy POC 85176 (05/19/2022) Bilirubin Urine Dipstick - Negative Blood Urine Dipstick - Negative Glucose Urine Dipstick - Negative Ketones Urine Dipstick - Negative Leukocytes Urine Dipstick - Trace Nitrite Urine Dipstick - Negative Protein Urine Dipstick - Negative Specific [place] Urine Dipstick - <=1.005 Urine Appearance Urine [...] 2 days (more content not included)... Normal [facility] Patient Educationon 05-20-19 Patient Education Urology Dietary [...] Rhubarb. ? Beets. ? Potato chips and hungarian fries. ? Nuts. ? If you regularly take a diuretic medicine, make sure to eat at least 1?2 fruits or vegetables high in potassium each day. These include: ? Avocado. ? Banana. ? Labette, prune, carrot, or tomato juice. ? Baked [...] other foods Seasoning blends with salt. Salad (more content not included)... Normal [facility] Urology Office/Clinic Noteon 05-19-2022 Urology Office/Clinic Note [...] Clark Roldan, URL [facility] [address] [place] [address]- Additional Instructions: f/u after KUB Patient Education [...] mRNA-1273 vac (more content not included)... Normal [facility] Comment on above: Result Comment: Elec tronically Signed By: Clark CLEMENS MD\.br\Date and Time Signed: 05/19/22 10:52 EST\.br\Electronically Co-Signed By: Mary Jane Sawyer\.br\Date and Time Co-Signed: 05/19/22 10:49 EST C3 and C4 COMPLEMENTon 04-15 Complement C3, Serum 191 mg/dL Critically high 82-167 [facility] Comment on above: Performed By: #### C BC #### [facility] [address] [address] [address] Llea Okeefe Complement C4, Serum 38 mg/dL Normal 12-38 [facility] Comment on above: Performed By: #### C BC #### [facility] [address] [address] [address] Lela Okeefe T3, TOTAL (TRIIODOTHYRONINE) on 04-13-2022 T3, TOTAL 109 ng/dL Normal 71-180 [facility] Comment on above: Performed By: #### C BC #### [facility] [address] [address] [address] Lela Okeefe US THYROIDon 04-13-2022 US [...] by: ZAHRA MCCLENDON Date: 2022-04-13 20:29 Normal [facility] CBC AUTO DIFFon 04-12-2022 BASO # 0.1 103/ul Normal 0.0-0.1 [facility] Comment on above: Performed By: #### C BC #### [facility] [address] [place] [address] Dr. Lela Okeefe Basophils/100 WBC (Bld) 0.6 % Normal 0.2-2.0 [facility] Comment on above: Performed By: #### C BC #### [facility] [address] [place] [address] Dr. Lela Okeefe EO # 0.0 103/ul Normal 0.0-0.7 [facility] Comment on above: Performed By: #### C BC #### [facility] [address] [place] [address] Dr. Lela Okeefe Eosinophils/100 WBC (Bld) 0.4 % Critically low 0.9-7.0 [facility] Comment on above: Performed By: #### C BC #### [facility] [address] [place] [address] Dr. Lela Okeefe Erythrocyte distribution width (RBC) [Ratio] 11.9 % Normal 11.0-15.0 [facility] Comment on above: Performed By: #### C BC #### [facility] [address] [place] [address] Dr. Lela Okeefe Hematocrit (Bld) [Volume fraction] 41.1 % Normal 36.0-48.0 [facility] Comment on above: Performed By: #### C BC #### [facility] [address] [place] [address] Dr. Lela Okeefe Hemoglobin (Bld) [Mass/Vol] 14.9 g/dL Normal 12.0-16.0 [facility] Comment on above: Performed By: #### C BC #### [facility] [address] [place] [address] Dr. Lela Okeefe IG # 0.03 10e3/ul Normal 0.00-0.03 [facility] Comment on above: Performed By: #### C BC #### [facility] [address] [place] [address] Dr. Lela Okeefe IG % 0.3 % Normal 0.0-0.5 [facility] Comment on above: Performed By: #### C BC #### [facility] [address] [place] [address] Dr. Lela Okeefe LYMPH # 1.1 103/ul Critically low 1.2-3.8 [facility] Comment on above: Performed By: #### C BC #### [facility] [address] [place] [address] Dr. Lela Okeefe Lymphocytes/100 WBC (Bld) 12.6 % Critically low 20.5-60.0 [facility] Comment on above: Performed By: #### C BC #### [facility] [address] [place] [address] Dr. Lela Okeefe MANUAL DIFF REQ NO Normal [facility] Comment on above: Performed By: #### C BC #### [facility] [address] [place] [address] Dr. Lela Okeefe MCH (RBC) [Entitic mass] 29.6 pg Normal 26.7-34.0 [facility] Comment on above: Performed By: #### C BC #### [facility] [address] [place] [address] Dr. Lela Okeefe MCHC (RBC) [Mass/Vol] 36.3 g/dL Critically high 29.9-35.2 [facility] Comment on above: Performed By: #### C BC #### [facility] [address] [place] [address] Dr. Lela Okeefe MCV (RBC) [Entitic vol] 81.7 fL Normal 81.0-99.0 [facility] Comment on above: Performed By: #### C BC #### [facility] [address] [place] [address] Dr. Lela Okeefe MONO # 0.9 103/ul Critically high 0.3-0.8 [facility] Comment on above: Performed By: #### C BC #### [facility] [address] [place] [address] Dr. Lela Okeefe Monocytes/100 WBC (Bld) 10.0 % Normal 1.7-12.0 [facility] Comment on above: Performed By: #### C BC #### [facility] [address] [place] [address] Dr. Lela Okeefe NEUT # 6.8 103/ul Critically high 1.4-6.5 [facility] Comment on above: Performed By: #### C BC #### [facility] [address] [place] [address] Dr. Lela Okeefe Neutrophils/100 WBC (Bld) 76.1 % Critically high 43.0-75.0 [facility] Comment on above: Performed By: #### C BC #### [facility] [address] [place] [address] Dr. Lela Okeefe Platelet mean volume (Bld) [Entitic vol] 9.5 fL Normal 9.5-13.5 [facility] Comment on above: Performed By: #### C BC #### [facility] [address] [place] [address] Dr. Lela Okefee PLT 232 103/ul Normal 150-450 [facility] Comment on above: Performed By: #### C BC #### [facility] [address] [place] [address] Dr. Lela Okeefe RBC 5.03 106/ul Normal 4.20-5.40 [facility] Comment on above: Performed By: #### C BC #### [facility] [address] [place] [address] Dr. Lela Okeefe WBC 9.0 103/ul Normal 4.0-11.0 [facility] Comment on above: Performed By: #### C BC #### [facility] [address] [place] [address] Dr. Lela Okeefe CPKon 04-12-2022 CK [Catalytic activity/Vol] 43 U/L Normal 26-192 [facility] Comment on above: Performed By: #### C BC #### [facility] [address] [place] [address] Dr. Lela Okeefe CREATININEon 04-12-2022 Creatinine [Mass/Vol] 0.85 mg/dL Normal 0.55-1.02 [facility] Comment on above: Performed By: #### C BC #### [facility] [address] [place] [address] Dr. Lela Okeefe EGFR-AF NIGERIEN >60 Normal >=60 [facility] Comment on above: Performed By: #### C BC #### [facility] [address] [place] [address] Dr. Lela Okeefe EGFR-NON AF NIGERIEN >60 Normal >=60 [facility] Comment on above: Performed By: #### C BC #### [facility] [address] [place] [address] Dr. Lela Okeefe SED RATE WESTERGRENon 2022 SED RATE 53 mm/hr Critically high <=20 [facility] Comment on above: Performed By: #### C BC #### [facility] [address] [place] [address] Dr. Lela Okeefe UA RANDOM W/MICROSCOPICon BACTERIA NONE SEEN Normal NONE SEEN [facility] Comment on above: Performed By: #### U AMIC #### [facility] [address] [place] [address] Dr. Lela Okeefe Bilirubin Ql (U) Negative Normal NEGATIVE [facility] Comment on above: Performed By: #### U AMIC #### [facility] [address] [place] [address] Dr. Lela Okeefe CAST NONE SEEN Normal NONE SEEN [facility] Comment on above: Performed By: #### U AMIC #### [facility] [address] [place] [address] Dr. Lela Okeefe Clarity (U) CLEAR Normal CLEAR [facility] Comment on above: Performed By: #### U AMIC #### [facility] [address] [place] [address] Dr. Lela Okeefe Color (U) YELLOW Normal YELLOW [facility] Comment on above: Performed By: #### U AMIC #### [facility] [address] [place] [address] Dr. Lela Okeefe Crystals LM Nom (Urine sed) NONE SEEN Normal NONE SEEN [facility] Comment on above: Performed By: #### U AMIC #### [facility] [address] [address] [address] Lela Okeefe Epithelial cells LM Ql (Urine sed) FEW Abnormal NONE SEEN /RARE [facility] Comment on above: Performed By: #### U AMIC #### [facility] [address] [address] [address] Lela Okeefe Glucose Ql (U) Negative Normal NEGATIVE [facility] Comment on above: Performed By: #### U AMIC #### [facility] [address] [address] [address] Lela Okeefe Hemoglobin Ql (U) Negative Normal NEGATIVE [facility] Comment on above: Performed By: #### U AMIC #### [facility] [address] [address] [address] Lela Okeefe Ketones Ql (U) Negative Normal NEGATIVE [facility] Comment on above: Performed By: #### U AMIC #### [facility] [address] [address] [address] Lela Okeefe LEUKOCYTES Negative Normal NEGATIVE [facility] Comment on above: Performed By: #### U AMIC #### [facility] [address] [address] [address] Lela Okeefe MUCOUS TRACE Abnormal NONE SEEN [facility] Comment on above: Performed By: #### U AMIC #### [facility] [address] [place] [address] Dr. Lela Okeefe Nitrite Ql (U) Negative Normal NEGATIVE [facility] Comment on above: Performed By: #### U AMIC #### [facility] [address] [address] [address] Lela Okeefe pH (U) 6.0 [pH] Normal 5-9 [facility] Comment on above: Performed By: #### U AMIC #### [facility] [address] [place] [address] Dr. Lela Okeefe RBC 0-2 Normal 0-2 [facility] Comment on above: Performed By: #### U AMIC #### [facility] [address] [place] [address] Dr. Lela Okeefe SPEC GRAVITY 1.020 Normal 1.005-<=1. 025 [facility] Comment on above: Performed By: #### U AMIC #### [facility] [address] [place] [address] Dr. Lela Okeefe UA PROTEIN Negative Normal NEGATIVE/ TRACE [facility] Comment on above: Performed By: #### U AMIC #### [facility] [address] [place] [address] Dr. Lela Okeefe Urobilinogen Qn (U) 0.2 {Fidelia'U}/dL Normal 0.2 - 1. 0 [facility] Comment on above: Performed By: #### U AMIC #### [facility] [address] [place] [address] Dr. Lela Okeefe WBC NONE SEEN Normal NONE SEEN [facility] Comment on above: Performed By: #### U AMIC #### [facility] [address] [place] [address] Dr. Lela Okeefe CBC AUTO DIFFon 04-10-2022 BASO # 0.0 103/ul Normal 0.0-0.1 [facility] Comment on above: Performed By: #### C BC #### [facility] [address] [place] [address] Dr. Lela Okeefe Basophils/100 WBC (Bld) 0.3 % Normal 0.2-2.0 [facility] Comment on above: Performed By: #### C BC #### [facility] [address] [place] [address] Dr. Lela Okeefe EO # 0.0 103/ul Normal 0.0-0.7 [facility] Comment on above: Performed By: #### C BC #### [facility] [address] [place] [address] Dr. Lela Okeefe Eosinophils/100 WBC (Bld) 0.1 % Critically low 0.9-7.0 [facility] Comment on above: Performed By: #### C BC #### [facility] [address] [place] [address] Dr. Lela Okeefe Erythrocyte distribution width (RBC) [Ratio] 11.9 % Normal 11.0-15.0 [facility] Comment on above: Performed By: #### C BC #### [facility] [address] [place] [address] Dr. Lela Okeefe Hematocrit (Bld) [Volume fraction] 46.1 % Normal 36.0-48.0 [facility] Comment on above: Performed By: #### C BC #### [facility] [address] [place] [address] Dr. Lela Okeefe Hemoglobin (Bld) [Mass/Vol] 14.5 g/dL Normal 12.0-16.0 [facility] Comment on above: Performed By: #### C BC #### [facility] [address] [place] [address] Dr. Lela Okeefe IG # 0.01 10e3/ul Normal 0.00-0.03 [facility] Comment on above: Performed By: #### C BC #### [facility] [address] [place] [address] Dr. Lela Okeefe IG % 0.1 % Normal 0.0-0.5 [facility] Comment on above: Performed By: #### C BC #### [facility] [address] [place] [address] Dr. Lela Okeefe LYMPH # 1.1 103/ul Critically low 1.2-3.8 [facility] Comment on above: Performed By: #### C BC #### [facility] [address] [place] [address] Dr. Lela Okeefe Lymphocytes/100 WBC (Bld) 11.7 % Critically low 20.5-60.0 [facility] Comment on above: Performed By: #### C BC #### [facility] [address] [place] [address] Dr. Lela Okeefe MANUAL DIFF REQ NO Normal [facility] Comment on above: Performed By: #### C BC #### [facility] [address] [place] [address] Dr. Lela Okeefe MCH (RBC) [Entitic mass] 29.8 pg Normal 26.7-34.0 [facility] Comment on above: Performed By: #### C BC #### [facility] [address] [address] [address] Lela Okeefe MCHC (RBC) [Mass/Vol] 31.5 g/dL Normal 29.9-35.2 [facility] Comment on above: Performed By: #### C BC #### [facility] [address] [address] [address] Lela Okeefe MCV (RBC) [Entitic vol] 94.7 fL Normal 81.0-99.0 [facility] Comment on above: Performed By: #### C BC #### [facility] [address] [address] [address] Lela Okeefe MONO # 0.8 103/ul Normal 0.3-0.8 [facility] Comment on above: Performed By: #### C BC #### [facility] [address] [address] [address] Lela Okeefe Monocytes/100 WBC (Bld) 7.9 % Normal 1.7-12.0 [facility] Comment on above: Performed By: #### C BC #### [facility] [address] [address] [address] Lela Okeefe NEUT # 7.7 103/ul Critically high 1.4-6.5 [facility] Comment on above: Performed By: #### C BC #### [facility] [address] [address] [address] Lela Okeefe Neutrophils/100 WBC (Bld) 79.9 % Critically high 43.0-75.0 [facility] Comment on above: Performed By: #### C BC #### [facility] [address] [address] [address] Lela Okeefe Platelet mean volume (Bld) [Entitic vol] 10.2 fL Normal 9.5-13.5 [facility] Comment on above: Performed By: #### C BC #### [facility] [address] [address] [address] Lela Okeefe PLT 230 103/ul Normal 150-450 [facility] Comment on above: Performed By: #### C BC #### [facility] [address] [place] [address] Dr. Lela Okeefe RBC 4.87 106/ul Normal 4.20-5.40 [facility] Comment on above: Performed By: #### C BC #### [facility] [address] [place] [address] Dr. Lela Okeefe WBC 9.6 103/ul Normal 4.0-11.0 [facility] Comment on above: Performed By: #### C BC #### [facility] [address] [place] [address] Dr. Lela Okeefe FREE T3on 04-10-2022 FREE T3 2.59 pg/mlL Normal 2.18-3.98 [facility] Comment on above: Performed By: #### C BC #### [facility] [address] [place] [address] Dr. Lela Okeefe FREE T4on 04-10-2022 Free T4 [Mass/Vol] 1.00 ng/dL Normal 0.76-1.46 [facility] Comment on above: Performed By: #### F T4 #### [facility] [address] [place] [address] Dr. Lela Okeefe PROF CHEM 8 (BAS METB)on Anion gap [Moles/Vol] 12.3 mmol/L Normal Th [facility] Comment on above: Performed By: #### B MP, TSH #### [facility] [address] [place] [address] Dr. Lela Okeefe Calcium [Mass/Vol] 9.4 mg/dL Normal 8.5-10.1 [facility] Comment on above: Performed By: #### B MP, TSH #### [facility] [address] [place] [address] Dr. Lela Okeefe Chloride [Moles/Vol] 102 mmol/L Normal 98-107 [facility] Comment on above: Performed By: #### B MP, TSH #### [facility] [address] [place] [address] Dr. Lela Okeefe CO2 [Moles/Vol] 28.3 mmol/L Normal 21.0-32.0 [facility] Comment on above: Performed By: #### B MP, TSH #### [facility] [address] [place] [address] Dr. Lela Okeefe Creatinine [Mass/Vol] 0.77 mg/dL Normal 0.55-1.02 [facility] Comment on above: Performed By: #### B MP, TSH #### [facility] [address] [address] [address] Lela Okeefe EGFR-AF NIGERIEN >60 Normal >=60 [facility] Comment on above: Performed By: #### B PEDRO, TSH #### [facility] [address] [place] [address] Dr. Lela Okeefe EGFR-NON AF NIGERIEN >60 Normal >=60 [facility] Comment on above: Performed By: #### B PEDRO, TSH #### [facility] [address] [place] [address] Dr. Lela Okeefe Glucose [Mass/Vol] 101 mg/dL Normal 74-106 [facility] Comment on above: Performed By: #### B PEDRO, TSH #### [facility] [address] [place] [address] Dr. Lela Okeefe Potassium [Moles/Vol] 4.6 mmol/L Normal 3.5-5.1 [facility] Comment on above: Performed By: #### B PEDRO, TSH #### [facility] [address] [place] [address] Dr. Lela Okeefe Sodium [Moles/Vol] 138 mmol/L Normal 136-145 [facility] Comment on above: Performed By: #### B MP, TSH #### [facility] [address] [place] [address] Dr. Lela Okeefe Urea nitrogen [Mass/Vol] 11.0 mg/dL Normal 7.0-18.0 [facility] Comment on above: Performed By: #### B MP, TSH #### [facility] [address] [place] [address] Dr. Lela Okeefe Urea nitrogen/Creatinine [Mass ratio] 14.3 mg/mg Normal [facility] Comment on above: Performed By: #### B MP, TSH #### [facility] [address] [place], [place] [address] [address] Lela Okeefe TSHon 04-10-2022 TSH 0.346 uIU/mL Critically low 0.358-3.74 0 [facility] Comment on above: Performed By: #### B MP, TSH #### [facility] [address], [place] [address] Dr. Lela Okeefe ECHOCARDIO M/2D COMPLETEon 1 ECHOCARDIO M/2D COMPLETE Patient: MORGAN KIRKLAND Exam Date: 12/24/2021 : 1990 Gender:F Ordering : ROYER DINH Admission #: [id number] Family : DR DAVID NEWBERRY M.D. Order #: [id number] CLICK HERE TO VIEW EXAM ECHOCARDIOGRAM REPORT [...] M.D. on 12/24/2021 at 15:14 Normal [facility] CBC AUTO DIFFon 11-23-2021 BASO # 0.0 103/ul Normal 0.0-0.1 [facility] Comment on above: Performed By: #### C BC #### [facility] [address] [place] [address] Dr. Lela Okeefe Basophils/100 WBC (Bld) 0.4 % Normal 0.2-2.0 [facility] Comment on above: Performed By: #### C BC #### [facility] [address] [place] [address] Dr. Lela Okeefe EO # 0.1 103/ul Normal 0.0-0.7 [facility] Comment on above: Performed By: #### C BC #### [facility] [address] [place] [address] Dr. Lela Okeefe Eosinophils/100 WBC (Bld) 1.4 % Normal 0.9-7.0 [facility] Comment on above: Performed By: #### C BC #### [facility] [address] [place] [address] Dr. Lela Okeefe Erythrocyte distribution width (RBC) [Ratio] 12.0 % Normal 11.0-15.0 [facility] Comment on above: Performed By: #### C BC #### [facility] [address] [place] [address] Dr. Lela Okeefe Hematocrit (Bld) [Volume fraction] 43.0 % Normal 36.0-48.0 [facility] Comment on above: Performed By: #### C BC #### [facility] [address] [place] [address] Dr. Lela Okeefe Hemoglobin (Bld) [Mass/Vol] 14.4 g/dL Normal 12.0-16.0 [facility] Comment on above: Performed By: #### C BC #### [facility] [address] [place] [address] Dr. Lela Okeefe IG # 0.02 10e3/ul Normal 0.00-0.03 [facility] Comment on above: Performed By: #### C BC #### [facility] [address] [place] [address] Dr. Lela Okeefe IG % 0.3 % Normal 0.0-0.5 [facility] Comment on above: Performed By: #### C BC #### [facility] [address] [place] [address] Dr. Lela Okeefe LYMPH # 2.1 103/ul Normal 1.2-3.8 [facility] Comment on above: Performed By: #### C BC #### [facility] [address] [place] [address] Dr. Lela Okeefe Lymphocytes/100 WBC (Bld) 29.2 % Normal 20.5-60.0 [facility] Comment on above: Performed By: #### C BC #### [facility] [address] [place] [address] Dr. Lela Okeefe MANUAL DIFF REQ NO Normal [facility] Comment on above: Performed By: #### C BC #### [facility] [address] [place] [address] Dr. Lela Okeefe MCH (RBC) [Entitic mass] 29.7 pg Normal 26.7-34.0 [facility] Comment on above: Performed By: #### C BC #### [facility] [address] [place] [address] Dr. Lela Okeefe MCHC (RBC) [Mass/Vol] 33.5 g/dL Normal 29.9-35.2 [facility] Comment on above: Performed By: #### C BC #### [facility] [address] [place] [address] Dr. Lela Okeefe MCV (RBC) [Entitic vol] 88.7 fL Normal 81.0-99.0 [facility] Comment on above: Performed By: #### C BC #### [facility] [address] [place] [address] Dr. Lela Okeefe MONO # 0.5 103/ul Normal 0.3-0.8 [facility] Comment on above: Performed By: #### C BC #### [facility] [address] [place] [address] Dr. Lela Okeefe Monocytes/100 WBC (Bld) 6.9 % Normal 1.7-12.0 [facility] Comment on above: Performed By: #### C BC #### [facility] [address] [place] [address] Dr. Lela Okeefe NEUT # 4.4 103/ul Normal 1.4-6.5 [facility] Comment on above: Performed By: #### C BC #### [facility] [address] [place] [address] Dr. Lela Okeefe Neutrophils/100 WBC (Bld) 61.8 % Normal 43.0-75.0 [facility] Comment on above: Performed By: #### C BC #### [facility] [address] [place] [address] Dr. Lela Okeefe Platelet mean volume (Bld) [Entitic vol] 9.3 fL Critically low 9.5-13.5 [facility] Comment on above: Performed By: #### C BC #### [facility] [address] [place] [address] Dr. Lela Okeefe PLT 239 103/ul Normal 150-450 [facility] Comment on above: Performed By: #### C BC #### [facility] [address] [place] [address] Dr. Lela Okeefe RBC 4.85 106/ul Normal 4.20-5.40 [facility] Comment on above: Performed By: #### C BC #### [facility] [address] [place] [address] Dr. Lela Okeefe WBC 7.1 103/ul Normal 4.0-11.0 [facility] Comment on above: Performed By: #### C BC #### [facility] [address] [place] [address] Dr. Lela Okeefe LIPID PROFILEon 11-23-2021 CHOL-HDL RATIO NORM SEE BELOW Normal [facility] Comment on above: Result Comment: 3.3 - 4.4 LOW RISK 4.4 - 7.1 AVERAGE RISK 7.1 - 11.0 MODERATE RISK >11.0 HIGH RISK Performed By: #### C BC #### [facility] [address] [place] [address] Dr. Lela Okeefe Cholesterol [Mass/Vol] 177 mg/dL Normal <=200 Th [facility] Comment on above: Performed By: #### C BC #### [facility] [address] [place] [address] Dr. Lela Okeefe Cholesterol in HDL [Mass/Vol] 38 mg/dL Critically low 40-60 [facility] Comment on above: Performed By: #### C BC #### [facility] [address] [place] [address] [address] Lela Okeefe Cholesterol in LDL [Mass/Vol] 121.6 mg/dL Normal [facility] Comment on above: Performed By: #### C BC #### [facility] [address] [place] [address] [address] Lela Okeefe Cholesterol.total/Chol esterol in HDL [Mass ratio] 4.7 {ratio} Normal [facility] Comment on above: Performed By: #### C BC #### [facility] [address] [place] [address] [address] Lela Okeefe HDL NORMAL > or = 60 mg/dl - LO W CARDIOVASCULAR RISK <40 mg/dl - HIGH CARDIOVASCULAR RISK Normal [facility] Comment on above: Performed By: #### C BC #### [facility] [address] [address] [address] Lela Okeefe LDL CALC NORMAL SEE BELOW Normal [facility] Comment on above: Result Comment: <100 mg/dl OPTIMAL 100 - 129 mg/dl NEAR OR ABOVE OPTIMAL 130 - 159 mg/dl BORDERLINE HIGH 160 - 189 mg/dl HIGH >190 mg/dl VERY HIGH Performed By: #### C BC #### [facility] [address] [address] [address] Lela Okeefe Triglyceride [Mass/Vol] 87 mg/dL Normal <=150 [facility] Comment on above: Performed By: #### C BC #### [facility] [address] [address] [address] Lela Okeefe VLDL CALC 17.4 mg/dL Normal [facility] Comment on above: Performed By: #### C BC #### [facility] [address] [address] [address] Lela Okeefe PROF CHEM 8 (BAS METB)on Anion gap [Moles/Vol] 9.2 mmol/L Normal [facility] Comment on above: Performed By: #### B MP, TSH, LIPID #### [facility] [address] [address] [address] Lela Okeefe Calcium [Mass/Vol] 8.9 mg/dL Normal 8.5-10.1 [facility] Comment on above: Performed By: #### B MP, TSH, LIPID #### [facility] [address] [address] [address] Lela Okeefe Chloride [Moles/Vol] 105 mmol/L Normal 98-107 [facility] Comment on above: Performed By: #### B MP, TSH, LIPID #### [facility] [address] [address] [address] Lela Okeefe CO2 [Moles/Vol] 28.8 mmol/L Normal 21.0-32.0 [facility] Comment on above: Performed By: #### B MP, TSH, LIPID #### [facility] [address] [place] [address] Dr. Lela Okeefe Creatinine [Mass/Vol] 0.77 mg/dL Normal 0.55-1.02 [facility] Comment on above: Performed By: #### B MP, TSH, LIPID #### [facility] [address] [place] [address] Dr. Lela Okeefe EGFR-AF NIGERIEN >60 Normal >=60 [facility] Comment on above: Performed By: #### B MP, TSH, LIPID #### [facility] [address] [place] [address] Dr. Lela Okeefe EGFR-NON AF NIGERIEN >60 Normal >=60 [facility] Comment on above: Performed By: #### B MP, TSH, LIPID #### [facility] [address] [place] [address] Dr. Lela Okeefe Glucose [Mass/Vol] 103 mg/dL Normal 74-106 [facility] Comment on above: Performed By: #### B MP, TSH, LIPID #### [facility] [address] [place] [address] Dr. Lela Okeefe Potassium [Moles/Vol] 4.0 mmol/L Normal 3.5-5.1 [facility] Comment on above: Performed By: #### B MP, TSH, LIPID #### [facility] [address] [place] [address] Dr. Lela Okeefe Sodium [Moles/Vol] 139 mmol/L Normal 136-145 [facility] Comment on above: Performed By: #### B MP, TSH, LIPID #### [facility] [address] [address] [address] Lela Okeefe Urea nitrogen [Mass/Vol] 10.0 mg/dL Normal 7.0-18.0 [facility] Comment on above: Performed By: #### B MP, TSH, LIPID #### [facility] [address] [place] [address] Dr. Lela Okeefe Urea nitrogen/Creatinine [Mass ratio] 13.0 mg/mg Normal [facility] Comment on above: Performed By: #### B MP, TSH, LIPID #### [facility] [address] [place] [address] Dr. Lela Okeefe TSHon 11-23-2021 TSH 1.092 uIU/mL Normal 0.358-3.74 0 [facility] Comment on above: Performed By: #### C BC #### [facility] [address] [place] [address] Dr. Lela Okeefe PROGRESSon 03-29-2019 PROGRESS HNO ID: [id number] Author: Jose Olea Service: ? Author Type: Physician Type: Progress Notes Filed: 03/29/2019 10:25 AM Note Text: Patient here for ultrasound. See ultrasound report for details. Jose Olea MD Normal [facility] PROGRESSon 03-15-2019 PROGRESS HNO ID: [id number] Author: Dasha Ibanez Service: ? Author Type: [...] See ultrasound report Dasha Ibanez MD Normal [facility] PROGRESSon 03-01-2019 PROGRESS HNO ID: [id number] Author: Tobias Yang Service: ? Author Type: [...] report available in the Imaging tab in [facility] ? Tobias Yang MD [facility] PROGRESSon 02-16-2019 PROGRESS HNO ID: [id number] Author: Tobias Yang Service: ? Author Type: Physician Type: Progress Notes Filed: 02/16/2019 11:17 AM Note Text: Ultrasound reveals a orjas fetus in utero. No effusions or dysrhythmias [...] report available in the Imaging tab in [facility] ? Tobias Yang MD [facility] PROGRESSon 01-31-2019 PROGRESS HNO ID: [id number] Author: Tobias Yang Service: ? Author Type: [...] tab in Epic ? Tobias Yang MD [facility] PROGRESSon 01-18-2019 PROGRESS HNO ID: [id number] Author: Tobias Yang Service: ? Author Type: [...] Imaging tab in Epic Tobias Yang MD [facility] Social History Date Type Detail Facility Start: 05-19-2022 End: 12-29-2022 Tobacco smoking status Never smoked tobacco (finding) [facility] Start: 1990 Sex Assigned At Female F [facility] Start: 1990 Sex Assigned At Not on file B ON [employer] Unknown if ever smoked [employer] Other Sex Assigned At [facility] Tobacco smoking status Never [facility] Tobacco smoking status NHIS Tobacco smoking consumption unknown [facility] [facility] Vital Signs Date Time Vital Sign Value Performing Clinician Facility 07-24-2023 08:28-0400 Body height 170.18 cm [facility] 07-24-2023 08:28-0400 Body mass index (BMI) [Ratio] 44.1 kg/m2 [facility] 07-24-2023 [id number] Body weight 127.91 kg [facility] 07-24-2023 08:28-0400 Diastolic blood pressure 78 mm[Hg] [facility] 07-24-2023 08:28-0400 Heart rate 63 /min [facility] 07-24-2023 08:28-0400 Systolic blood pressure 114 mm[Hg] [facility] 03-20-2023 08:30-0500 Body height 170.18 cm David Newberry Other [facility] [employer] Other 03-20-2023 08:30-0500 Body mass index (BMI) [Ratio] 43.47 kg/m2 David Newberry Other [employer] [facility] [employer] Other 03-20-2023 08:30-0500 Body weight 125.92 kg David Newberry Other [employer] Other 03-20-2023 08:30-0500 Diastolic blood pressure 74 mm[Hg] David Newberry Other [employer] [facility] [employer] Other 03-20-2023 08:30-0500 Systolic blood pressure 109 mm[Hg] David Newberry Other [employer] [facility] [employer] Other 01-23-2023 08:56-0500 Blood Pressure Location Clark CLEMENS [facility] 01-23-2023 08:56-0500 Diastolic blood pressure 82 mm[Hg] Clark CLEMENS [facility] 01-23-2023 08:56-0500 Heart rate 73 /min Clark CLEMENS [facility] 01-23-2023 08:56-0500 Respiratory rate 16 /min Clark CLEMENS [facility] 01-23-2023 08:56-0500 Systolic blood pressure 124 mm[Hg] Clark CLEMENS [facility] 12-29-2022 12:42-0400 Diastolic blood pressure 74 mm[Hg] MD David Newberry Work Phone: [facility] 12-29-2022 12:42-0400 Heart rate 95 /min MD David Newberry Work Phone: [facility] 12-29-2022 12:42-0400 Respiratory rate 18 /min MD David Newberry Work Phone: [facility] 12-29-2022 12:42-0400 SaO2% (BldA) [Mass fraction] 97 % MD David Newberry Work Phone: [facility] 12-29-2022 12:42-0400 Systolic blood pressure 105 mm[Hg] MD David Newberry Work Phone: [facility] 12-29-2022 09:45-0400 Body temperature 98.6 [degF] MD David Newberry Work Phone: [facility] 12-29-2022 09:07-0400 Inhaled oxygen flow rate 8 L/min MD David Newberry Work Phone: [facility] 12-29-2022 07:18-0400 Body height 170.18 cm MD David Newberry Work Phone: [facility] 12-29-2022 07:18-0400 Body mass index (BMI) [Ratio] 42.3 kg/m2 MD David Newbrery Work Phone: [facility] 12-29-2022 07:18-0400 Body weight 122.46 kg MD David Newberyr Work Phone: [facility] 05-19-2022 10:18-0500 Blood Pressure Location Clark CLEMENS [facility] 05-19-2022 10:18-0500 Diastolic blood pressure 71 mm[Hg] Clark CLEMENS [facility] 05-19-2022 10:18-0500 Heart rate 51 /min Clark CLEMENS [facility] 05-19-2022 10:18-0500 Respiratory rate 16 /min Clark CLEMENS [facility] 05-19-2022 10:18-0500 Systolic blood pressure 113 mm[Hg] Clark CLEMENS [facility] 04-10-2022 15:00-0500 Body height 170.18 cm David Newberry Other [employer] Other 04-10-2022 15:00-0500 Body mass index (BMI) [Ratio] 36.33 kg/m2 David Newberry Other [employer] Other 04-10-2022 15:00-0500 Body weight 105.24 kg David Newberry Other [employer] Other 04-10-2022 15:00-0500 Diastolic blood pressure 74 mm[Hg] David Newberry Other [employer] Other 04-10-2022 15:00-0500 SaO2% (BldA) [Mass fraction] 97 % David Newberry Other [employer] Other 04-10-2022 15:00-0500 Systolic blood pressure 122 mm[Hg] David Newberry Other [employer] Other Functional Status Date Assessment Result Facility 01-23-2023 Functional Status N/A [facility] 05-19-2022 Functional Status N/A [facility] Clinical Notes 04-10-2022 to 07-07-2023 Note [...] All other systems reviewed and are negative. [facility] 07-07-2023 Note Cardiovascular Medic ine [facility] SUBJECTIVE Chief Complaint Patient presents with [...] had a tilt table study done at [facility]. this that was a negative study based [...] frequency Urinary urgency (more content not included)... [facility] 03-20-2023 Evaluation note Encounter Date Diagnosis Assessment Notes Mar, Paroxysmal SVT (supraventricul ar tachycardia) (ICD-10 - I47.10) Discussed f/u w cardiology Mar, Daytime somnolence (ICD-10 - R40.0) HST order faxed to [facility] sleep lab. Mar, Morbid (severe) obesity due to excess calories (ICD-10 - E66.01) as above Mar, Body mass index [BMI] 40.0-44.9, adult (ICD-10 - Z68.41) as above Mar, Fatigue, unspecified type (ICD-10 - R53.83) as above [employer] Other [id number] NotePatient here for follow up tilt table test per Elana Ramirez CNP. Review of Systems Cardiovascular: Positive for palpitations. Neurological: Positive for dizziness, headaches and light-headedness. All other systems reviewed and are negative.[facility] 03-03-2023 NoteUT Electrophysiology Consult Note Reason [...] had a tilt table study done at [facility]. this that was a negative study based [...] tablet 3 No curre (more content not included)...[facility] 02-27-2023 History of Present illness Narrative* May Crandall RN - 02/27/2023 2:30 PM EST Instructed on objectives and procedure of a tilt study [facility] Discharge instructions Patient Education 01/23/2023 09:39:05 Urinary Tract Infection, Adult, [id number] Urinary Tract Infection, Adult A urinary tract [...] Follow these instructions at home: Medicines Take umub-vrd-[id number] and prescription medicines only as told by [...] provider. Document Revised: 10/12/2020 Document Reviewed: 10/12/2020 Elsevier Patient Education 2022 [employer]. Follow Up Care 07/18/2022 12:23:23 With:MIKY SAMPSON, Clark Roldan, URL Address: [facility] [address], [place] [phone] When: Unknown Comments:1 yr w/ REYNA [facility] Rob 10-27-2023 NoteUT Electrophysiology Consult Note Reason for [...] monitor in December reviewed by Juan Ramirez, [employer] showed sinus tachycardia, atrial arrhythmia. Patient reported [...] no cyanosis, no pa (more content not included)...[facility]10-27-2023 NotePatient here for 4 mo follow up [...] light-headedness. All other systems reviewed and are negative.[facility] 12-14-2022 History general Narrative - Reported* Type Description Date Medical History tachycardia Medical History anxiety Medical History sjogren syndrome Surgical History tonsillectomy and adenoidectomy Surgical History Hysterectomy 12/2022 Surgical History Loop monitor 08/2022 [employer] Other 06-28-2023 NoteUT Electrophysiology Consult Note Reason [...] monitor in December reviewed by Juan Ramirez, [employer] showed sinus tachycardia, atrial arrhythmia. Patient reported [...] Lungs Respiratory Effort: unlabored (more content not included)...[facility]06-28-2023 NoteReview of Systems Cardiovascular: Positive for palpitations. Neurological: Positive for dizziness, headaches and light-headedness.[facility]06-16-2023 NotePatient seen for wound check s/p loop device placement on 08/21/2022. Wound is clean, dry, intact, and well approximated. Discussed wound care including avoiding, rubbing, lotions, direct shower head pressure, caution with seat belt and bra straps, as well as avoiding other irritants. We will schedule appointment for evaluation of ongoing lightheadedness and dizziness.[facility]06-08-2023 NoteLOOP IMPLANT PROCEDURE NOTE DATE OF PROCEDURE: 08/21/22 PERFORMING PHYSICIAN: Dr. Og Barone DEVELOPMENT TECHNOLOGIST: JESS INDICATIONS FOR PROCEDURE: 1. SVT/AF surveillance [...] the sternum on the left using the ReviewZAP tool. The loop recorder was then injected [...] wet the incision. Og Barone MD Cardiac Electrophysiology.[facility]05-03-2023 Note0 points Class I Risk 3.9 % 30-day risk of , SD, or cardiac arrest METS greater than 6 Echo 12/2021 no regional wall motion abnormality, normal LV function and size. Patient can proceed with urological procedure. She is a low risk patient going into a low risk-intermediate procedure. [facility]05-02-2023 NoteUT Electrophysiology Consult Note Reason for [...] Inspection: no joint swell (more content not included)...[facility]03-06-2023 Hospital Discharge instructions Patient Education 05/19/2022 [...] include: ?Spinach. ?Rhubarb. ?Beets. ?Potato chips and hungarian fries. ?Nuts. If you regularly take a diuretic medicine, make sure to eat at least 1 2 fruits or vegetables high in potassium each day. These include: ?Avocado. ?Banana. ?Labette, prune, carrot, or tomato juice. ?Baked potato. [...] Casseroles. Pizza. Lasagna. Frozen meals. Potato chips. Chinese fries. Summary You can reduce your risk [...] 06/27/2011 Document Revised: 06/22/2019 Document Reviewed: 02/10/2017 Blend Patient Education 2020 [employer]. Follow Up Care 05/16/2022 10:14:36 With:MIKY SAMPSON, Clark Roldan, URL Address: [facility] [address] , [place] [address]- When: Unknown [facility] Evaluation note* Encounter Date Diagnosis Assessment Notes Treatment Notes Treatment Clinical Notes May, Thyroid disease (ICD-10 - E07.9) [employer] Other 02-24-2023 Evaluation note* Encounter Date Diagnosis Assessment Notes Treatment Notes Treatment Clinical Notes Apr, Dysuria (ICD-10 - R30.0) [employer] Other 01-26-2023 Evaluation note* Encounter Date Diagnosis [...] Acute non-recurrent maxillary sinusitis (ICD-10 - J01.00) [employer] Other Evaluation + Plan note No data available for this section [facility] evaluation + Plan note Future Appointments Appointment Date:01/29/2024 08:30:00 AM Scheduled Provider:Clark CLEMENS MD Location:[facility] Appointment Type:URO Office Visit [facility] evaluation + Plan note Future Appointments Appointment Date:01/29/2024 08:30:00 AM Scheduled Provider:Clark CLEMENS MD Location:[facility] Appointment Type:URO Office Visit Diagnostic Tests Pending * Urine Culture 08/07/23 [facility] [employer] Other Evaluation noteNo assessment information available [facility] Work Phone: Evaluation note* Diagnosis Postural dizziness with near syncope documented in this encounter [facility] note* Diagnosis Onset Date Resolution Status Abnormal weight gain acute Fatigue acute HTN (hypertension) acute [facility] Work Phone: History general Narrative - Reported* Type Description Date Medical History tachycardia Medical History anxiety Medical History sjogren syndrome Surgical History tonsillectomy and adenoidectomy [facility] [employer] Other Hospital Discharge instructions No data available for this section [facility] note No data available for this section [facility] Summary Purpose Family History Relationship Condition [...] Referral Specialty Diagnoses / Procedures Referred By Benny murillo Referred To Contact Diagnoses Postural dizziness with near syncope Procedures Tilt table Elana Ramirez, [employer] [address] [facility] [address] [place] [address] Referral ID Status Reason Start Date Expiration Date Visits Re quested Visits Authorized [id number] Closed 02/16/2023 02/16/2024 1 1 Additional Source Comments INFORMATION SOURCE (unrecogn ized section and content) DATE CREATED AUTHOR 03/29/2019 [facility] DATE CREATED AUTHOR AUTHOR'S ORGANIZ ATION 07/24/2022 [facility] DATE CREATED AUTHOR AUTHOR'S ORGANIZ ATION 01/25/2023 [facility] DATE CREATED AUTHOR AUTHOR'S ORGANIZ ATION 01/29/2023 [facility] DATE CREATED AUTHOR AUTHOR'S ORGANIZ ATION 03/02/2023 [facility] DATE CREATED AUTHOR AUTHOR'S ORGANIZ ATION 07/08/2023 [facility] DATE CREATED AUTHOR AUTHOR'S ORGANIZ ATION 07/28/[address] [facility] Specialists EPIC REASON FOR VISIT (unrecogniz ed section and content) Specialty Diagnoses / Procedures Referred By Benny murillo Referred To Contact Diagnoses Postural dizziness with near syncope Procedures Tilt table Elana Ramirez, [employer] [address] [facility] [address] [place] [address] Referral ID Status Reason Start Date Expiration Date Visits Re quested Visits Authorized [id number] Closed 02/16/2023 02/16/2024 1 1 Patient Care team informatio n (unrecognized section and content) Personnel Name: DAVID NEWBERRY MD Address: Address: [address] [place] [address] Team Status: Active Member Role Status Dates David Newberry MD Primary Care Provider Active Team Status: Inactive Member Role Status Dates David Newberry MD Primary Care Provider Active Dasha Garcia DO Attending Provider Active Team Status: Inactive Member Role Status Dates David Newberry MD Primary Care Provider Active Enrique Lucas MD Attending Provider Active House Registry Rn Relationship Specialty Start Date End Date David Newberry MD [address] [place] [phone] PCP - General Family Medicine 02/27/23 [...] BE BASED ON THE PRIMARY CLINICAL RECORDS. [employer] provides no warranty or guarantee of the accuracy or completeness of information in this document.
== END 2023-08-08 09:08 | disposition home or self-care (01) ==
LOC: RAD 09:09
PROVIDERS: PCP Family Medicine; Visit Provider Urology
DX: N20.0 Calculus of kidney (principal)
CPT/HCPCS: 74018

== ENCOUNTER 2023-08-13 07:33 | Outpatient (OUT) | payer OTHER, SELFPAY ==
--- OUTSIDE RECORDS SUMMARY | 2023-08-13 07:35 | XMS_ITS | CCD ---
Author Organization [facility] Care Team Providers Care Manager Country Name Role Phone David Newberry Unavailable DAVID [...] Unavailable PIOTR ., DR APPLE Consulting Unavailable HAY ., [...] Unavailable MD David Newberry Primary Care Provider [phone] DO Dasha Garcia Attending Provider [phone] MD David Newberry Primary Care Provider [phone] DO Dasha Garcia Attending Provider [phone] MD Enrique Lucas Attending Provider Enrique Lucas Admitting Unavailable Enrique Lucas Attending Unavailable David Newberry Primary Care Unavailable Jose, Dasha Admitting Unavailable Dasha Garcia Attending Unavailable David Newberry Primary Care Unavailable Dasha Garcia Attending Unavailable Jose, Dasha Admitting Unavailable David Newberry Primary Care Unavailable David Newberry MD Primary Care Provider [phone] DAVID NEWBERRY Primary Care Unavailable ELANA RAMIREZ Referring Unavailable OG BARONE Attending Unavailable NAHID GRIFFIN Attending Unavailable ELANA RAMIREZ Attending Unavailable OG BARONE Admitting Unavailable OG BARONE Attending Unavailable ELANA RAMIREZ Attending Unavailable OG BARONE Attending Unavailable GERSON SOTO Attending Unavailable DASHA GARCIA Attending Unavailable YOEL BENTLEY Attending Unavailable CLEMENSClark Attending Unavailable CLEMENS, Clark R Admitting Unavailable CLEMENS, Clark Roldan Attending Unavailable CLEMENS, Clark Roldan Admitting Unavailable CLEMENS, Clark R Attending Unavailable CLEMENS, Clark R Attending Unavailable CLEMENS, Clark R Attending Unavailable Allergies Allergy Classification Reported Allergen(s) Allergy Type Date of Onset Reaction(s) Facility (17 sources) Penicillin; Translations: [penicillin] Drug Allergy 03-26-19 rash, Weal (disorder) [facility] [place] (2 sources) Allergies Reconciled Propensity to adverse reactions Unknown [facility] Other (2 sources) Substance with penicillin structure and antibacterial mechanism of action (substance) Drug allergy 01-20-20 13 Unknown [facility] Other (2 sources) patient allergy list reviewed by nurse or physicia Propensity to adverse reactions 09-08-19 14 Comment:Done [facility] Other (3 sources) Penicillins; Translations: [Penicillins] Allergy to substance 12-16-19 Rash [facility] (6 sources) Povidone-Iodine; Translations: [povidone iodine topical] Drug Allergy 03-03-20 Eruption of skin (disorder) [facility] Medications Current Medications Medication Drug Class(es) [...] Status: Ordered take 1 tablet by meg twice daily Metoprolol Tartrate 50 MG 1 tab Orally Twice a day for 30 day(s) Active sulfamethoxazole 800 mg / trimethoprim 160 mg oral tablet (7 sources) Dihydrofolate Reductase Inhibitor Antibacterial, Sulfonamide Antimicrobial Start: 04-14-2022 take 1 tablet by mouth every twelve hours Bactrim DS 800-160 MG 1 tablet Orally Twice a day for 10 day(s) 30 Saroj, 2023 Active Completed/Discontinued Medications Medication Drug Class(es) Dates [...] nitroGLYCERIN (NITROSTAT) SL tablet 0.3 mg Vit 94-Ebho-Reudg-Dha ( + Dha) 28 mg iron- 975 mcg-200 mg Combo Pack (3 sources) Start: 04-21-2019 End: 12-15-2022 take 1 tablet by mouth once daily Vit 43-Xzxw-Sjgwr-Dha ( + Dha) 28 mg iron- 975 mcg-200 mg Combo Pack Discontinued 1 TAB PO Daily April 21, 2019 12:00am December 15, 2022 1:43pm Start: 04-21-2019 End: 12-15-2022 take 1 tablet by mouth once daily Vit 78-Iubd-Isvsk-Dha ( + Dha) 28 mg iron- 975 [...] Test Name Value Interpretation Reference Range Facility C Urineon 08-09-2023 Bacteria identified Cx Nom (U) Microbiology PROCEDURE: Urine Culture [R1] SOURCE: U CleanCatch BODY SITE: COLLECTED DATE/TIME: 08/07/2023 14:07 EDT RECEIVED DATE/TIME: 08/07/2023 17:42 EDT START DATE/TIME: 08/07/2023 17:42 EDT FREE TEXT SOURCE: MIKY SAMPSON, Clark Gunn MD FINAL REPORTS Final Report [] Verified Date/Time: 08/09/2023 09:51 EDT >100,000 cfu/ml Escherichia coli SUSCEPTIBILITY RESULTS _ LEGEND: S=Susceptible, N/R=Not Reported, Blank=Data not available, or drug not advisable or tested, I=Intermediate, ESBL=Extended spectrum beta-lactamase, R=Resistant, TFG=Thymidine-dependent strain, BECCA=Beta-lactamase positive, SHELTON=mcg/m;(mg/L), S*=Predicted susceptible interp, R*=Predicted resistant interp EC Antibiotic SHELTON Dilutn SHELTON Interp Amikacin <=16 S Ampicillin <=8 S Ampicillin/ <=8/4 S Sulbactam Aztreonam <=4 S Cefazolin <=2 S Cefepime <=2 S Cefoxitin <=8 S Ceftazidime <=1 S Ceftazidime/ <=8 S Avibactam Ceftriaxone <=1 S Ciprofloxacin >2 R Ertapenem <=0.5 S Gentamicin <=4 S Levofloxacin >4 R Meropenem <=1 S Nitrofurantoin <=32 S Piperacillin/ <=16 S Tazobactam Tetracycline <=4 S Tigecycline <=2 S Tobramycin <=4 S Trimethoprim/ <=2/38 S Sulfa Performing Locations R1: This test was performed at: [facility], [address] [place] [address], [id number]- , , Normal [facility] Comment on above: Performed By: #### [id number] #### [facility] [address] [place] [id number] Office Visiton 07-07-2023 Follow-up visit [id number] Ada Kirkland 1990 F Date Provider Department [place] 07/07/2023 GERSON ELIZABETH RADHA [facility] Family History Problem Relation Age of Onset Heart attack Father 44 Coronary artery disease Father Clotting disorder Father Family Status - Relation Status Age at Father Alive Level of Service:92353 ND OFFICE/OUTPATIENT ESTABLISHED LOW MDM 20 MIN Reason for Visit and Comments: Edema [[id number]] Palpitations [374540] [facility] Office Visiton 03-03-2023 Follow-up visit [id number] Ada Kirkland 1990 Date Provider Department Center 03/03/2023 OG ERVIN RADHA Rivas [facility] Family History Problem Relation Age of Onset Heart attack Father 44 Coronary artery disease Father Clotting disorder Father Family Status - Relation Status Age at Father Alive Level of Service:26421 ND OFFICE/OUTPATIENT ESTABLISHED MOD MDM 30 MIN [facility] Tilt tableOrdered By: Nadiya bonner on 02-27-2023 BP (Initial Tilt) 125/97 mmHg BON [employer] Work Phone: BP (Max BP) 139/92 mmHg BON [employer] Work Phone: BP (Max Heart Rate) 83/41 mmHg BON S [email or web address] Work Phone: BP (Min BP) 83/41 mmHg BON [employer] Phone: BP (Min Heart Rate) 111/82 mmHg BON S [employer] Phone: BP (Supine) 131/52 bpm BON [employer] Phone: Heart rate 72 /min bpm BON [employer] Work Phone: Heart rate 112 /min bpm MIGUEL [employer] Phone: Minutes (Max BP) 22 MIGUEL FERNANDEZO KALI [employer] Work Phone: Minutes (Max Heart Rate) 23 MIGUEL [employer] Phone: Minutes (Min BP) 23 MIGUEL FERNANDEZO KALI [employer] Work Phone: Minutes (Min Heart Rate) 6 MIGUEL [employer] Work Phone: Rhythm (Initial Tilt) SR MIGUEL [employer] Phone: Rhythm (Max BP) ST MIGUEL [employer] RS [employer] Phone: Rhythm (Max Heart Rate) ST MIGUEL [employer] Phone: Rhythm (Min BP) ST MIGUEL SECOU RS [employer] Phone: Rhythm (Min Heart Rate) SR [employer] Phone: Rhythm (Supine) SR MIGUEL McAfeeHARLEEN [employer] Phone: BON [employer] Phone: Tilt tableon 02-27-2023 Tilt Study Conclusio [...] with their primary care physician and/ or citrix systems administrator as previously scheduled. [facility] CV CPACS Radiology Study observation (narrative) [facility] [employer] Vital signsOrdered By: Nadiya douglass on 02-27-2023 Heart rate 78 /min bpm [employer] Work Phone: Heart rate 122 /min bpm [employer] Work Phone: Ambulatory Visit Summaryon 1 03-25-2022 Ambulatory Visit Summary MORGAN KIRKLAND Phillip :1990 Visit Date:01/23/2023 Ambulatory Visit Instructions Your Diagnosis History of kidney stones Recurrent UTI Tests Performed Urnls Dip Stick Auto w/o Microscopy POC 27213 XR Abdomen 1 View -- Results Pending [...] Clark CLEMENS MD Where: [facility] Lab Reportson 01-23-2023 Lab Reports [id number] [facility] Patient Educationon 01-24-20 23 Patient Education [...] these instructions at home: Medicines ? Take [id number]-xxsjmvl and prescription medicines only as told by [...] provider. Document Revised: 10/12/2020 Document Reviewed: 10/12/2020 [employer] Patient Education ? 2022 [employer]. [facility] 01-23-2023 [facility] [id number] [facility] Urology Office/Clinic Noteon 01-23-2023 Urology [...] extraction 07/17/22. (first stone event) KUB 01/17/23 TB - no stones id'd. Denies any stone [...] URL [facility] [address], [place] [address] [id number] Additional Instructions: 1 yr w/ KUB Patient Education Urinary Tract Infection, Adult, Stpf-sy-Anwq Antionette Sparks, personally scribed for Dr. Clemens on 01/23/2023 09:39:31. . Documentation recorded by the Antionette xavier, accurately reflects the services(s) I performed and [...] (01/23/23 09:04:00) (more content not included)... [facility] Comment on above: Result Comment: Elec tronically Signed By: Clark CLEMENS MD\.br\Date and Time Signed: 01/23/23 09:41 EST\.br\Electronically Co-Signed By: Antionette Huizar.br\Date and Time Co-Signed: 01/23/23 09:39 EST Physician Orderon 01-21-2023 Physician Order [id number] [facility] Automated erythrocytes count in urine sediment (number/area)Ordered By: Enrique Lucas on 01-20-2023 RBC Auto (Urine sed) [#/Area] 10-19 [HPF] 0-4 [facility] Automated leukocytes count i n urine sediment (number/area)Ordered By: Enrique Lucas on 01-20-2023 WBC Auto (Urine sed) [#/Area] 5-9 [HPF] 0-4 [facility] Basophils Auto (Bld) [#/Vol] Ordered By: Enrique Lucas on 01-20-2023 Basophils (Bld) [#/Vol] 0.1 10*3/uL 0.0-0.2 [facility] Basophils/100 WBC Auto (Bld) Ordered By: Enrique Lucas on 01-20-2023 Basophils/100 WBC (Bld) 0.7 % . [facility] Bilirubin Test strip Ql (U)O rdered By: Enrique Lucas on 01-20-2023 Bilirubin Ql (U) Negative Negative [facility] C reactive protein [Mass/vol ume] in Serum or PlasmaOrdered By: Enrique Lucas on 01-20-2023 CRP [Mass/Vol] 0.5 mg/dL 0.0-0.5 [facility] C-Reactive Proteinon 023 C-Reactive Protein 0.5 mg/dL Normal 0.0-0.5 [facility] Comment on above: Result Comment: PERF ORMED BY: [place] [address] PATHOLOGIST RN MATERNITY OLIMPIA MORA M.D. Performed By: #### B MP #### [address] Color Auto (U)Ordered By: Marybeth Lucas on 01-20-2023 Color (U) Yellow Yellow [facility] Complement C3on 01-20-2023 Complement C3 182 mg/dL High 82-167 [facility] Comment on above: Result Comment: Perf ormed at: - [facility] [address] [id number] Auto Body Technician: Chris Urban PhD, Phone: [phone] Performed By: #### B MP #### [address] Complement C4on 01-20-2023 Complement C4 29 mg/dL Normal 12-38 [facility] Comment on above: Result Comment: PERF ORMED BY: [place] [address] PATHOLOGIST RN MATERNITY OLIMPIA MORA M.D. Performed By: #### B MP #### [address] Complete Blood Count Auto Di ffon 01-20-2023 Basophils (Bld) [#/Vol] 0.1 10*3/uL Normal 0.0-0.2 [facility] Comment on above: Performed By: #### B MP #### [address] Basophils/100 WBC (Bld) 0.7 % Normal . [facility] Comment on above: Performed By: #### B MP #### [address] Eosinophils (Bld) [#/Vol] 0.2 10*3/uL Normal 0.0-0.45 [facility] Comment on above: Performed By: #### B MP #### [address] Eosinophils/100 WBC (Bld) 3.0 % Normal . [facility] Comment on above: Performed By: #### B MP #### [address] Erythrocyte distribution width (RBC) [Ratio] 13.0 % Normal 11.9-15.3 [facility] Comment on above: Performed By: #### B MP #### [address] Hematocrit (Bld) [Volume fraction] 41.5 % Normal 34.0-46.4 [facility] Comment on above: Performed By: #### B MP #### [address] Hemoglobin (Bld) [Mass/Vol] 14.0 g/dL Normal 11.8-15.4 [facility] Comment on above: Performed By: #### B MP #### [address] Lymphocytes (Bld) [#/Vol] 2.6 10*3/uL Normal 1.00-4.8 [facility] Comment on above: Performed By: #### B MP #### [address] Lymphocytes/100 WBC (Bld) 35.4 % Normal . [facility] Comment on above: Performed By: #### B MP #### [address] MCH (RBC) [Entitic mass] 30.2 pg Normal 24.7-34.3 [facility] Comment on above: Performed By: #### B MP #### [address] MCV (RBC) [Entitic vol] 89.4 fL Normal 80-100 [facility] Comment on above: Performed By: #### B MP #### [address] Mean Corpuscular HGB Conc 33.7 g/dL Normal 32.0-35.0 [facility] Comment on above: Performed By: #### B MP #### [address] Monocytes (Bld) [#/Vol] 0.4 10*3/uL Normal 0.0-0.8 [facility] Comment on above: Performed By: #### B MP #### [address] Monocytes/100 WBC (Bld) 5.3 % Normal . [facility] Comment on above: Performed By: #### B MP #### [address] Neutrophils (Bld) [#/Vol] 4.1 10*3/uL Normal 1.8-7.7 [facility] Comment on above: Performed By: #### B MP #### [facility] [address] Neutrophils/100 WBC (Bld) 55.6 % Normal . [facility] Comment on above: Performed By: #### B MP #### [facility] [address] NRBC% 0.1 /100{WBC} Normal 0-0.5 [facility] Comment on above: Performed By: #### B MP #### [facility] [address] Platelet mean volume (Bld) [Entitic vol] 8.5 fL Normal 6.3-10.7 [facility] Comment on above: Performed By: #### B MP #### [address] Platelets (Bld) [#/Vol] 253 10*3/uL Normal 150-450 [facility] Comment on above: Performed By: #### B MP #### [address] RBC (Bld) [#/Vol] 4.65 10*6/uL Normal 3.60-5.00 [facility] Comment on above: Performed By: #### B MP #### [address] WBC (Bld) [#/Vol] 7.4 10*3/uL Normal 3.8-11.6 [facility] Comment on above: Performed By: #### B MP #### [facility] [address] Creatinineon 01-20-2023 Creatinine [Mass/Vol] 0.70 mg/dL Normal 0.60-1.20 [facility] Comment on above: Performed By: #### C 4, C3 #### [facility] , #### ADDONUAPLUS, CBC, CRP, CUU, CREAT, ESR #### [facility] [address] [place] [address] [place] GFR/1.73 sq M.predicted MDRD (S/P/Bld) [Vol rate/Area] mL/min/{1.73_m2} Normal [facility] Comment on above: Performed By: #### C 4, C3 #### [facility] , #### ADDONUAPLUS, CBC, CRP, CUU, CREAT, ESR #### [facility] [address] [place] [address] Creatinine [Mass/volume] in Serum or PlasmaOrdered By: Enrique Lucas on 01-20-2023 Creatinine [Mass/Vol] 0.70 mg/dL 0.60-1.20 [facility] Dipstick and Microscopicon 1 03-22-2022 Appearance (U) Clear Normal Clear [facility] Comment on above: Order Comment: Name Collection Type:: Clean-Voided Midstream Performed By: #### C 4, C3 #### [facility] , #### ADDONUAPLUS, CBC, CRP, CUU, CREAT, ESR #### [facility] [address] [place] [address] [place] Bacteria,Urine 1+ High None Seen [facility] Comment on above: Order Comment: Name Collection Type:: Clean-Voided Midstream Performed By: #### C 4, C3 #### [facility] , #### ADDONUAPLUS, CBC, CRP, CUU, CREAT, ESR #### [facility] [address] [place] [address] [place] Bilirubin,Urine Negative Normal Negative [facility] Comment on above: Order Comment: Name Collection Type:: Clean-Voided Midstream Performed By: #### C 4, C3 #### [facility] , #### ADDONUAPLUS, CBC, CRP, CUU, CREAT, ESR #### [facility] [address] [place] [address] [place] Color (U) Yellow Normal Yellow [facility] Comment on above: Order Comment: Name Collection Type:: Clean-Voided Midstream Performed By: #### C 4, C3 #### [facility] , #### ADDONUAPLUS, CBC, CRP, CUU, CREAT, ESR #### [facility] [address] [place] [address] Glucose Ql (U) Normal Normal Normal [facility] Comment on above: Order Comment: Name Collection Type:: Clean-Voided Midstream Performed By: #### C 4, C3 #### [facility] , #### ADDONUAPLUS, CBC, CRP, CUU, CREAT, ESR #### [facility] [address] [place] [address] Hyaline Casts,Urine None Seen Normal 0-8 [facility] Comment on above: Order Comment: Name Collection Type:: Clean-Voided Midstream Result Comment: PERF ORMED BY: [place] [address] PATHOLOGIST RN MATERNITY OLIMPIA MORA M.D. Performed By: #### C 4, C3 #### [facility] , #### ADDONUAPLUS, CBC, CRP, CUU, CREAT, ESR #### [facility] [address] [place] [address] Ketones Ql (U) Negative Normal Negative [facility] Comment on above: Order Comment: Name Collection Type:: Clean-Voided Midstream Performed By: #### C 4, C3 #### [facility] , #### ADDONUAPLUS, CBC, CRP, CUU, CREAT, ESR #### [facility] [address] [place] [address] Leukocyte esterase Test strip Ql (U) 2+ High Negative [facility] Comment on above: Order Comment: Name Collection Type:: Clean-Voided Midstream Performed By: #### C 4, C3 #### [facility] , #### ADDONUAPLUS, CBC, CRP, CUU, CREAT, ESR #### [address] Nitrite,Urine Negative Normal Negative [facility] Comment on above: Order Comment: Name Collection Type:: Clean-Voided Midstream Performed By: #### C 4, C3 #### [facility] , #### ADDONUAPLUS, CBC, CRP, CUU, CREAT, ESR #### [address] Occult Blood,Urine Trace High Negative [facility] Comment on above: Order Comment: Name Collection Type:: Clean-Voided Midstream Performed By: #### C 4, C3 #### [facility] , #### ADDONUAPLUS, CBC, CRP, CUU, CREAT, ESR #### [address] pH (U) 6.0 [pH] Normal 5.0-9.0 [facility] Comment on above: Order Comment: Name Collection Type:: Clean-Voided Midstream Performed By: #### C 4, C3 #### [facility] , #### ADDONUAPLUS, CBC, CRP, CUU, CREAT, ESR #### [address] Protein,Urine Negative Normal Negative [facility] Comment on above: Order Comment: Name Collection Type:: Clean-Voided Midstream Performed By: #### C 4, C3 #### [facility] , #### ADDONUAPLUS, CBC, CRP, CUU, CREAT, ESR #### [address] RBC,Urine 10-19 High 0-4 [facility] Comment on above: Order Comment: Name Collection Type:: Clean-Voided Midstream Performed By: #### C 4, C3 #### [facility] , #### ADDONUAPLUS, CBC, CRP, CUU, CREAT, ESR #### [address] Specificy [place],Urine 1.016 Normal 1.001-1.03 0 [facility] Comment on above: Order Comment: Name Collection Type:: Clean-Voided Midstream Performed By: #### C 4, C3 #### [facility] , #### ADDONUAPLUS, CBC, CRP, CUU, CREAT, ESR #### [address] Squamous Epithelial Cell,Urine 3-4 High 0-2 [facility] Comment on above: Order Comment: Name Collection Type:: Clean-Voided Midstream Performed By: #### C 4, C3 #### [facility] , #### ADDONUAPLUS, CBC, CRP, CUU, CREAT, ESR #### [address] Urobilinogen,Urine Normal Normal Normal [facility] Comment on above: Order Comment: Name Collection Type:: Clean-Voided Midstream Performed By: #### C 4, C3 #### [facility] , #### ADDONUAPLUS, CBC, CRP, CUU, CREAT, ESR #### [address] WBC,Urine 5-9 High 0-4 [facility] Comment on above: Order Comment: Name Collection Type:: Clean-Voided Midstream Performed By: #### C 4, C3 #### [facility] , #### ADDONUAPLUS, CBC, CRP, CUU, CREAT, ESR #### [address] Eosinophils Auto (Bld) [#/Vo l]Ordered By: Enrique Lucas on 01-20-2023 Eosinophils (Bld) [#/Vol] 0.2 10*3/uL 0.0-0.45 [facility] Eosinophils/100 WBC Auto (Bl d)Ordered By: Enrique Lucas on 01-20-2023 Eosinophils/100 WBC (Bld) 3.0 % . [facility] Erythrocyte Sedimentation Ra jeniffer 01-20-2023 ESR (Bld) [Velocity] 13 mm/h Normal 0-19 [facility] Comment on above: Result Comment: PERF ORMED BY: [place] [address] PATHOLOGIST RN MATERNITY OLIMPIA MORA M.D. Performed By: #### B MP #### [address] Erythrocyte distribution wid th Auto (RBC) [Ratio]Ordered By: Enrique Lucas on 01-20-2023 Erythrocyte distribution width (RBC) [Ratio] 13.0 % 11.9-15.3 [facility] Erythrocyte sedimentation ra te by Photometric methodOrdered By: Enrique Lucas on 01-20-2023 ESR Photometric method (Bld) [Velocity] 13 mm/hr 0-19 [facility] Hematocrit Auto (Bld) [Volum e fraction]Ordered By: Enrique Lucas on 01-20-2023 Hematocrit (Bld) [Volume fraction] 41.5 % 34.0-46.4 [facility] Hemoglobin [Mass/volume] in BloodOrdered By: Enrique Lucas on 01-20-2023 Hemoglobin (Bld) [Mass/Vol] 14.0 g/dL 11.8-15.4 [facility] Ketones Auto test strip (U) [Mass/Vol]Ordered By: Enrique Lucas on 01-20-2023 Ketones (U) [Mass/Vol] Negative Negative [facility] - UrinalysisOrder ed By: Enrique Lucas on 01-20-2023 Hyaline casts LM Ql (Urine sed) None seen [LPF] 0-8 [facility] Leukocytes [#/volume] correc dave for nucleated erythrocytes in Blood by Automated counOrdered By: Enrique Lucas on 01-20-2023 WBC corrected for nucl RBC Auto (Bld) [#/Vol] 7.4 10*3/uL 3.8-11.6 [facility] Lymphocytes Auto (Bld) [#/Vo l]Ordered By: nErique Lucas on 01-20-2023 Lymphocytes (Bld) [#/Vol] 2.6 10*3/uL 1.00-4.8 [facility] Lymphocytes/100 WBC Auto (Bl d)Ordered By: Enrique Lucas on 01-20-2023 Lymphocytes/100 WBC (Bld) 35.4 % . [facility] MCH Auto (RBC) [Entitic mass ]Ordered By: Enrique Lucas on 01-20-2023 MCH (RBC) [Entitic mass] 30.2 pg 24.7-34.3 [facility] MCHC Auto (RBC) [Mass/Vol]Or dered By: Enrique Lucas on 01-20-2023 MCHC (RBC) [Mass/Vol] 33.7 g/dL 32.0-35.0 [facility] MCV Auto (RBC) [Entitic vol] Ordered By: Enrique Lucas on 01-20-2023 MCV (RBC) [Entitic vol] 89.4 fL 80-100 [facility] Monocytes Auto (Bld) [#/Vol] Ordered By: Enrique Lucas on 01-20-2023 Monocytes (Bld) [#/Vol] 0.4 10*3/uL 0.0-0.8 [facility] Monocytes/100 WBC Auto (Bld) Ordered By: Enrique Lucas on 01-20-2023 Monocytes/100 WBC (Bld) 5.3 % . [facility] Neutrophils Auto (Bld) [#/Vo l]Ordered By: Enrique Lucas on 01-20-2023 Neutrophils (Bld) [#/Vol] 4.1 10*3/uL 1.8-7.7 [facility] Neutrophils/100 WBC Auto (Bl d)Ordered By: Enrique Lucas on 01-20-2023 Neutrophils/100 WBC (Bld) 55.6 % . [facility] Nitrite Test strip Ql (U)Ord ered By: Enrique Lucas on 01-20-2023 Nitrite Ql (U) Negative Negative [facility] No Panel InformationOrdered By: Enrique Lucas on 01-20-2023 Estimated GFR (CKD-EPI) > 60.0 mL/Min [facility] Creatinine Clearance (Chem N/A [facility] Nucleated erythrocytes [Pres ence] in Blood by Automated countOrdered By: Enrique Lucas on 01-20-2023 Nucleated RBC Auto Ql (Bld) 0.1 /100{WBC} 0-0.5 [facility] Platelet mean volume Auto (B ld) [Entitic vol]Ordered By: Enrique Lucas on 01-20-2023 Platelet mean volume (Bld) [Entitic vol] 8.5 fL 6.3-10.7 [facility] Platelets Auto (Bld) [#/Vol] Ordered By: Enrique Lucas on 01-20-2023 Platelets (Bld) [#/Vol] 253 10*3/uL 150-450 [facility] Protein Auto test strip (U) [Mass/Vol]Ordered By: Enrique Lucas on 01-20-2023 Protein (U) [Mass/Vol] Negative Negative Fi [facility] RBC Auto (Bld) [#/Vol]Ordere d By: Enrique Lucas on 01-20-2023 RBC (Bld) [#/Vol] 4.65 10*6/uL 3.60-5.00 [facility] Specific gravity Auto test s trip (U) [Rel density]Ordered By: Enrique Lucas on 01-20-2023 Specific gravity (U) [Rel density] 1.016 1.001-1.03 0 [facility] Squamous epithelial cells de tection in urine sediment by light microscopyOrdered By: Enrique Lucas on 01-20-2023 Epithelial cells.squamous LM Ql (Urine sed) 3-4 [HPF] 0-2 [facility] Urine Cultureon 01-20-2023 Bacteria identified Cx Nom (U) 20,000 colonies/ml mixed bacterial skin contaminants 2 Days PERFORMED BY: [place] [address] PATHOLOGIST RN MATERNITY OLIMPIA MORA M.D. Normal [facility] Comment on above: Performed By: #### B MP #### [address] Urine bacteria detection by automated methodOrdered By: Enrique Lucas on 01-20-2023 Bacteria Auto Ql (U) 1+ None Seen [facility] Urine clarity by refractomet ry automatedOrdered By: Enrique Lucas on 01-20-2023 Clarity Refractometry automated (U) Clear Clear [facility] Urine glucose measurement by automated test strip (mass/volume)Ordered By: Enrique Lucas on 01-20-2023 Glucose Auto test strip (U) [Mass/Vol] Normal mg/dL Normal [facility] Urine hemoglobin detection b y automated test stripOrdered By: Enrique Lucas on 01-20-2023 Hemoglobin Auto test strip Ql (U) Trace Negative [facility] Urine leukocyte esterase det ection by automated test stripOrdered By: Enrique Lucas on 01-20-2023 Leukocyte esterase Auto test strip Ql (U) 2+ Negative [facility] Urobilinogen Auto test strip (U) [Mass/Vol]Ordered By: Enrique Lucas on 01-20-2023 Urobilinogen (U) [Mass/Vol] Normal mg/dL Normal [facility] WBC Auto (Bld) [#/Vol]Ordere d By: Enrique Lucas on 01-20-2023 WBC (Bld) [#/Vol] 7.4 10*3/uL 3.8-11.6 [facility] pH Auto test strip (U)Ordere d By: Enrique Lucas on 01-20-2023 pH (U) 6.0 [pH] 5.0-9.0 [facility] Office Visiton 01-09-2023 Follow-up visit [id number] Ada Kirkland 1990 F Date Provider Department Center 01/09/2023 Joel-ELANA RAMIREZ CARD [facility] Family History Problem Relation Age of Onset Heart attack Father 44 Coronary artery disease Father Clotting disorder Father Family Status - Relation Status Age at Father Alive Level of Service:84030 [place] OFFICE/OUTPATIENT ESTABLISHED MOD MDM 30-39 MIN [facility] HCG ( test) Best alanis Ql (U)Ordered By: LITA BLACKMAN on 12-29-2022 HCG ( test) Ql (U) Negative [facility] HCG,Urineon 12-29-2022 Beta HCG ( test) Ql (U) Negative Normal [facility] Comment on above: Result Comment: PERF ORMED BY: [address] [place] [id number] PATHOLOGIST RN MATERNITY OLIMPIA MORA M.D. Performed By: #### U HCG #### [place] [id number] [facility] Bin 12-29-2022 L ------ Specimen: [id number] Received: 12/29/22 Status: FADIA Espinosa Num: [id number] Spec Type: Surgical Subm Dr: Dasha Garcia DO Tissues: A Uterus w/ or w/o tubes ovaries except neoplastic or prolap (CERVIX, DARIO TU Procedures: , Gross/Micro L5 Age/ Patient Sex Location Account Attending Physician Morgan Kirkland 32/F [place] [id number] Dasha Garcia DO SPEC NUM: [id number] RECD: 12/29/22 STATUS: FADIA ESPINOSA NUM: [id number] STEVAN: 12/29/[address]: Dasha Garcia DO ENTERED: 12/29/[address] [facility] [address]: SPEC TYPE: Surgical DEPT: S ORDERED: HE/, Gross/Micro L5 ORDERED: , Gross/Micro L5 Pathological [...] left sided pelvic pain menorrhagia adenomyosis Specimen: [id number] Received: 12/29/22 Status: FADIA Espinosa Num: [id number] Spec Type: Surgical Subm Dr: Dasha Garcia DO Tissues: A Uterus w/ or w/o tubes ovaries except neoplastic or prolap (CERVIX, DARIO TU Procedures: , Gross/Micro L5 Patient: Bela,Morgan M [id number] (Continued) Specimen: [id number] Received: 12/29/22 (Continued) Signed (signature on file) Daniel Okeefe MD 12/30/222016 Specimen: [id number] Received: 12/29/22 Status: FADIA Espinosa Num: [id number] Spec Type: Surgical Subm Dr: Dasha Garcia, Tissues: A Uterus w/ or w/o tubes ovaries except neoplastic or prolap (CERVIX, DARIO TU Procedures: , Gross/Micro L5 Patient: Morgan Kirkland [id number] (Continued) Specimen: [id number] Received: 12/29/22 (Continued) Gross Description Received in [...] has a pinpoint lumen on cut section. [employer] sections are submitted in 8 cassettes as follows: A1 - Anterior cervix A2 - Posterior cervix A3-A4 - Anterior endomyometrium A5-A6 - Posterior endomyometrium A7 - Right fallopian tube A8 - Left fallopian tube Microscopic Description Eight H E slides reviewed. The microscopic examination confirms the diagnosis. CPT Codes 83128 Specimen: [id number] Received: 12/29/22 Status: FADIA Espinosa Num: [id number] Spec Type: Surgical Subm Dr: Dasha Garcia, DO Tissues: A Uterus w/ or w/o tubes ovaries except neoplastic or prolap (CERVIX, DARIO TU Procedures: HE/12, Gross/Micro L (more content not included)... Normal [facility] Activated partial thrombopla stin time (aPTT) in platelet poor plasma by coagulation aOrdered By: Dasha Garcia on 12-15-2022 aPTT Coag (PPP) [Time] 28.2 s 25.1-36.5 [facility] Comment on above: A hematocrit value g reater than 55% may lead to inaccurate results in coagulation testing. Patients having hematocrit values >55% require a special collection tube for coagulation studies. Please contact the laboratory at [phone] for redraw instructions. Basic Metabolic Panelon 10 Anion gap [Moles/Vol] 8.5 mmol/L Normal 6.0-15.0 [facility] Comment on above: Performed By: #### B MP #### [facility] [address] [place] [id number] [facility] Calcium [Mass/Vol] 9.4 mg/dL Normal 8.6-10.3 [facility] Comment on above: Result Comment: PERF ORMED BY: [facility] [address] [place] [address] PATHOLOGIST RN MATERNITY OLIMPIA MORA M.D. Performed By: #### B MP #### [facility] [address] [place] [id number] [place] Chloride [Moles/Vol] 105 mmol/L Normal 98-107 [facility] Comment on above: Performed By: #### B MP #### [facility] [address] CO2 [Moles/Vol] 28.6 mmol/L Normal 21.0-31.0 [facility] Comment on above: Performed By: #### B MP #### [facility] [address] Creatinine [Mass/Vol] 0.86 mg/dL Normal 0.60-1.20 [facility] Comment on above: Performed By: #### B MP #### [facility] [address] [place] [address] [place] GFR/1.73 sq M.predicted MDRD (S/P/Bld) [Vol rate/Area] mL/min/{1.73_m2} Normal [facility] Comment on above: Performed By: #### B MP #### [address] Glucose [Mass/Vol] 90 mg/dL Normal 70-100 [facility] Comment on above: Result Comment: Salol Glucose Reference Range is dependent on time and content of last meal. Glucose of more than 200 mg/dL in a nonstressed, ambulatory subject supports the diagnosis of Diabetes Mellitus. ADA recommended reference range Performed By: #### B MP #### [address] Potassium [Moles/Vol] 4.1 mmol/L Normal 3.5-5.1 [facility] Comment on above: Performed By: #### B MP #### [place] [address] [place] Sodium [Moles/Vol] 138 mmol/L Normal 136-145 [facility] Comment on above: Performed By: #### B MP #### [address] Urea nitrogen [Mass/Vol] 9 mg/dL Normal 7-25 [facility] Comment on above: Performed By: #### B MP #### [place] [address] [place] Basophils Auto (Bld) [#/Vol] Ordered By: Dasha Garcia on 12-15-2022 Basophils (Bld) [#/Vol] 0.0 10*3/uL 0.0-0.2 [facility] Basophils/100 WBC Auto (Bld) Ordered By: Dasha Garcia on 12-15-2022 Basophils/100 WBC (Bld) 0.6 % . [facility] Calcium [Mass/volume] in Ser um or PlasmaOrdered By: Dasha Garcia on 12-15-2022 Calcium [Mass/Vol] 9.4 mg/dL 8.6-10.3 [facility] Carbon dioxide, total [Moles /volume] in Serum or PlasmaOrdered By: Dasha Garcia on 12-15-2022 CO2 [Moles/Vol] 28.6 mmol/L 21.0-31.0 [facility] Chloride [Moles/volume] in S misael or PlasmaOrdered By: Dasha Garcia on 12-15-2022 Chloride [Moles/Vol] 105 mmol/L 98-107 [facility] Complete Blood Count Auto Di ffon 12-15-2022 Basophils (Bld) [#/Vol] 0.0 10*3/uL Normal 0.0-0.2 [facility] Comment on above: Result Comment: PERF ORMED BY: [place] [address] PATHOLOGIST RN MATERNITY OLIMPIA MORA M.D. Performed By: #### C BC #### [facility] [address] [place] [address] [place] Basophils/100 WBC (Bld) 0.6 % Normal . [facility] Comment on above: Performed By: #### C BC #### [facility] [address] [place] [address] [place] Eosinophils (Bld) [#/Vol] 0.2 10*3/uL Normal 0.0-0.45 [facility] Comment on above: Performed By: #### C BC #### [facility] [address] [place] [address] [place] Eosinophils/100 WBC (Bld) 1.9 % Normal . [facility] Comment on above: Performed By: #### C BC #### [address] Erythrocyte distribution width (RBC) [Ratio] 13.0 % Normal 11.9-15.3 [facility] Comment on above: Performed By: #### C BC #### [address] Hematocrit (Bld) [Volume fraction] 40.0 % Normal 34.0-46.4 [facility] Comment on above: Performed By: #### C BC #### [address] Hemoglobin (Bld) [Mass/Vol] 13.6 g/dL Normal 11.8-15.4 [facility] Comment on above: Performed By: #### C BC #### [address] Lymphocytes (Bld) [#/Vol] 2.3 10*3/uL Normal 1.00-4.8 [facility] Comment on above: Performed By: #### C BC #### [address] Lymphocytes/100 WBC (Bld) 28.8 % Normal . [facility] Comment on above: Performed By: #### C BC #### [address] MCH (RBC) [Entitic mass] 30.0 pg Normal 24.7-34.3 [facility] Comment on above: Performed By: #### C BC #### [address] MCV (RBC) [Entitic vol] 88.1 fL Normal 80-100 [facility] Comment on above: Performed By: #### C BC #### [address] Mean Corpuscular HGB Conc 34.0 g/dL Normal 32.0-35.0 [facility] Comment on above: Performed By: #### C BC #### [facility] [address] [place] [address] [place] Monocytes (Bld) [#/Vol] 0.4 10*3/uL Normal 0.0-0.8 [facility] Comment on above: Performed By: #### C BC #### [facility] [address] Monocytes/100 WBC (Bld) 5.1 % Normal . [facility] Comment on above: Performed By: #### C BC #### [facility] [address] Neutrophils (Bld) [#/Vol] 5.2 10*3/uL Normal 1.8-7.7 [facility] Comment on above: Performed By: #### C BC #### [address] Neutrophils/100 WBC (Bld) 63.6 % Normal . [facility] Comment on above: Performed By: #### C BC #### [address] NRBC% 0.1 /100{WBC} Normal 0-0.5 [facility] Comment on above: Performed By: #### C BC #### [address] Platelet mean volume (Bld) [Entitic vol] 8.2 fL Normal 6.3-10.7 [facility] Comment on above: Performed By: #### C BC #### [place] [address] [place] Platelets (Bld) [#/Vol] 235 10*3/uL Normal 150-450 [facility] Comment on above: Performed By: #### C BC #### [place] [address] [place] RBC (Bld) [#/Vol] 4.53 10*6/uL Normal 3.60-5.00 [facility] Comment on above: Performed By: #### C BC #### [address] [place] [address] [place] WBC (Bld) [#/Vol] 8.1 10*3/uL Normal 3.8-11.6 [facility] Comment on above: Performed By: #### C BC #### [facility] [address] [place] [id number] [facility] Creatinine [Mass/volume] in Serum or PlasmaOrdered By: Dasha Garcia on 12-15-2022 Creatinine [Mass/Vol] 0.86 mg/dL 0.60-1.20 [facility] Eosinophils Auto (Bld) [#/Vo l]Ordered By: Dasha Garcia on 12-15-2022 Eosinophils (Bld) [#/Vol] 0.2 10*3/uL 0.0-0.45 [facility] Eosinophils/100 WBC Auto (Bl d)Ordered By: Dasha Garcia on 12-15-2022 Eosinophils/100 WBC (Bld) 1.9 % . [facility] Erythrocyte distribution wid th Auto (RBC) [Ratio]Ordered By: Dasha Garcia on 12-15-2022 Erythrocyte distribution width (RBC) [Ratio] 13.0 % 11.9-15.3 [facility] Glucose [Mass/volume] in Ser um or PlasmaOrdered By: Dasha Garcia on 12-15-2022 Glucose [Mass/Vol] 90 mg/dL 70-100 [facility] Comment on above: ADA recommended refe rence rangeRandom Glucose Reference Range is dependent on time and content of last meal. Glucose of more than 200 mg/dL in a nonstressed, ambulatory subject supports the diagnosis of Diabetes Mellitus. Hematocrit Auto (Bld) [Volum e fraction]Ordered By: Dasha Garcia on 12-15-2022 Hematocrit (Bld) [Volume fraction] 40.0 % 34.0-46.4 [facility] Hemoglobin [Mass/volume] in BloodOrdered By: Dasha Garcia on 12-15-2022 Hemoglobin (Bld) [Mass/Vol] 13.6 g/dL 11.8-15.4 [facility] INR in Platelet poor plasma by Coagulation assayOrdered By: Dasha Garcia on 12-15-2022 INR Coag (PPP) [Relative time] 0.9 {INR} [facility] Comment on above: INR Therapeutic Rang e [...] RBC Auto (Bld) [#/Vol] 8.1 10*3/uL 3.8-11.6 [facility] Lymphocytes Auto (Bld) [#/Vo l]Ordered By: Dasha Garcia on 12-15-2022 Lymphocytes (Bld) [#/Vol] 2.3 10*3/uL 1.00-4.8 [facility] Lymphocytes/100 WBC Auto (Bl d)Ordered By: Dasha Garcia on 12-15-2022 Lymphocytes/100 WBC (Bld) 28.8 % . [facility] MCH Auto (RBC) [Entitic mass ]Ordered By: Dasha Garica on 12-15-2022 MCH (RBC) [Entitic mass] 30.0 pg 24.7-34.3 [facility] MCHC Auto (RBC) [Mass/Vol]Or dered By: Dasha Garcia on 12-15-2022 MCHC (RBC) [Mass/Vol] 34.0 g/dL 32.0-35.0 [facility] MCV Auto (RBC) [Entitic vol] Ordered By: Dasha Garcia on 12-15-2022 MCV (RBC) [Entitic vol] 88.1 fL 80-100 [facility] Monocytes Auto (Bld) [#/Vol] Ordered By: Dasha Garcia on 12-15-2022 Monocytes (Bld) [#/Vol] 0.4 10*3/uL 0.0-0.8 [facility] Monocytes/100 WBC Auto (Bld) Ordered By: Dasha Garcia on 12-15-2022 Monocytes/100 WBC (Bld) 5.1 % . [facility] Neutrophils Auto (Bld) [#/Vo l]Ordered By: Dasha Garcia on 12-15-2022 Neutrophils (Bld) [#/Vol] 5.2 10*3/uL 1.8-7.7 [facility] Neutrophils/100 WBC Auto (Bl d)Ordered By: Dasha Garcia on 12-15-2022 Neutrophils/100 WBC (Bld) 63.6 % . [facility] No Panel InformationOrdered By: Dasha Garcia on 12-15-2022 Estimated GFR (CKD-EPI) > 60.0 mL/Min [facility] Creatinine Clearance (Chem N/A [facility] Nucleated erythrocytes [Pres ence] in Blood by Automated countOrdered By: Dasha Garcia on 12-15-2022 Nucleated RBC Auto Ql (Bld) 0.1 /100{WBC} 0-0.5 [facility] PST Type and Screenon 2022 ABO and Rh group Nom (Bld) Blood group A Rh(D) positive Normal [facility] Comment on above: Order Comment: Date of Surgery: 20221229 Partial Thromboplastin Timeo n 12-15-2022 aPTT Coag (Bld) [Time] 28.2 s Normal 25.1-36.5 [facility] Comment on above: Result Comment: A he matocrit value greater than 55% may lead to inaccurate results in coagulation testing. Patients having hematocrit values >55% require a special collection tube for coagulation studies. Please contact the laboratory at [phone] for redraw instructions. PERFORMED BY: [facility] [address] [place] [address] PATHOLOGIST RN MATERNITY OLIMPIA MORA M.D. Performed By: #### P T, PTT #### [place] [id number] [facility] Platelet mean volume Auto (B ld) [Entitic vol]Ordered By: Dasha Garcia on 12-15-2022 Platelet mean volume (Bld) [Entitic vol] 8.2 fL 6.3-10.7 [facility] Platelets Auto (Bld) [#/Vol] Ordered By: Dasha Garcia on 12-15-2022 Platelets (Bld) [#/Vol] 235 10*3/uL 150-450 [facility] Potassium [Moles/volume] in Serum or PlasmaOrdered By: Dasha Garcia on 12-15-2022 Potassium [Moles/Vol] 4.1 mmol/L 3.5-5.1 [facility] Prothrombin Time INRon 12-15 INR Coag (PPP) [Relative time] 0.9 {INR} Normal [facility] Comment on above: Result Comment: INR Therapeutic [...] Performed By: #### P T, PTT #### [facility] [address] PT Coag (PPP) [Time] 11.3 s Normal 9.0-12.9 [facility] Comment on above: Result Comment: A he matocrit value greater than 55% may lead to inaccurate results in coagulation testing. Patients having hematocrit values >55% require a special collection tube for coagulation studies. Please contact the laboratory at [phone] for redraw instructions. Performed By: #### P T, PTT #### [facility] [address] [place] [id number] [facility] Prothrombin time (PT)Ordered By: Dasha Garcia on 12-15-2022 PT Coag (PPP) [Time] 11.3 s 9.0-12.9 [facility] Comment on above: A hematocrit value g reater than 55% may lead to inaccurate results in coagulation testing. Patients having hematocrit values >55% require a special collection tube for coagulation studies. Please contact the laboratory at [phone] for redraw instructions. RBC Auto (Bld) [#/Vol]Ordere d By: Dasha Garcia on 12-15-2022 RBC (Bld) [#/Vol] 4.53 10*6/uL 3.60-5.00 [facility] Serum or plasma anion gap de terminationOrdered By: Dasha Jose on 12-15-2022 Anion gap [Moles/Vol] 8.5 mmol/L 6.0-15.0 [facility] Sodium [Moles/volume] in Ser um or PlasmaOrdered By: Dashahomer Garcia on 12-15-2022 Sodium [Moles/Vol] 138 mmol/L 136-145 [facility] Urea nitrogen [Mass/volume] in Serum or PlasmaOrdered By: Dashahomer Garcia on 12-15-2022 Urea nitrogen [Mass/Vol] 9 mg/dL 7-25 [facility] WBC Auto (Bld) [#/Vol]Ordere d By: Dasha Jose on 12-15-2022 WBC (Bld) [#/Vol] 8.1 10*3/uL 3.8-11.6 [facility] 36on 10-24-2022 36 It is still connecti ng and sensing well, reviewed her loop. Likely breast tissue inhibiting being able to feel. For now we will ct monitor , since device is sensing ECG well it does not seem to be migrated. If she is concerned we can order a CXR just to confirm placement I am ok with that [facility] Follow-Upon 09-10-2022 Follow-Up [id number] Ada Kirkland 1990 F Date Provider Department Center 09/10/2022 1596-ELANA RAMIREZ Family History Problem Relation Age of Onset Heart attack Father 44 Coronary artery disease Father Clotting disorder Father Family Status - Relation Status Age at Father Alive Level of Service:15808 [place] OFFICE/OUTPATIENT ESTABLISHED MOD MDM 30-39 MIN Reason for Visit and Comments: Dizziness [058797] - Lightheaded and dizziness for a few weeks. Did stop last shiv. Is not as bad. Comes and goes- Wondering if she might have POTS. Family members has POTS. Has LOOP monitor in currently [facility] Office Visiton 08-29-2022 Follow-up visit [id number] Ada Kirkland 1990 F Date Provider Department Center 08/29/2022 [id number]-XEKSFPHSMNAHID GRIFFIN RADHA Nair Family History Problem Relation Age of Onset Heart attack Father 44 Coronary artery disease Father Clotting disorder Father Family Status - Relation Status Age at Father Alive Level of Service:74068 [place] POSTOP FOLLOW UP VISIT RELATED TO ORIGINAL PX [facility] HPon 08-21-2022 [facility] Electrophysiology Consult Note Reason for visit: Palpitations [...] joint swell (more content not included)... [facility] CALCULI, URINARYon 3 2,8 Dihydroxyadenine Normal [facility] Comment on above: Performed By: #### C ALCULI #### [facility] [address] [address] [address] Lela Okeefe Ammonium Acid Urate Normal [facility] Comment on above: Performed By: #### C ALCULI #### [facility] [address] [address] [address] Lela Okeefe Bilirubin Ql (U) Normal [facility] Comment on above: Performed By: #### C ALCULI #### [facility] [address] [address] [address] Lela Okeefe Ca Oxalate Dihydrate 60 % Normal [facility] Comment on above: Performed By: #### C ALCULI #### [facility] [address] [address] [address] Lela Okeefe CaHPO4 (Brushite) Normal [facility] Comment on above: Performed By: #### C ALCULI #### [facility] [address] [address] [address] Lela Okeefe Calcium Bilirubinate Normal [facility] Comment on above: Performed By: #### C ALCULI #### [facility] [address] [address] [address] Lela Okeefe Calcium Carbonate Normal [facility] Comment on above: Performed By: #### C ALCULI #### [facility] [address] [address] [address] Lela Okeefe Calcium Oxalate Monohydrate 30 % [facility] Comment on above: Performed By: #### C ALCULI #### [facility] [address] [address] [address] Lela Okeefe Calcium Palmitate [facility] Comment on above: Performed By: #### C ALCULI #### [facility] [address] [address] [address] Lela Okeefe Calcium Phosphate [facility] Comment on above: Performed By: #### C ALCULI #### [facility] [address] [address] [address] Lela Okeefe Calcium Stearate [facility] Comment on above: Performed By: #### C ALCULI #### [facility] [address] [place] [address] Dr. Lela Okeefe Carbonate Apatite [facility] Comment on above: Performed By: #### C ALCULI #### [facility] [address] [address] [address] Lela Okeefe Cellular Material [facility] Comment on above: Performed By: #### C ALCULI #### [facility] [address] [address] [address] Lela Okeefe Cholesterol [facility] Comment on above: Performed By: #### C ALCULI #### [facility] [address] [place] [address] Dr. Lela Okeefe Color (U) Conroy [facility] Comment on above: Performed By: #### C ALCULI #### [facility] [address] [address] [address] Lela Okeefe Comment Comment [facility] Comment on above: Result Comment: Calc ium phosphate (hydroxyl form) includes hydroxyapatite, amorphous calcium phosphate, and whitlockite. Hydroxyapatite is the most common of the calcium phosphate salts found in human kidney stones. Performed By: #### C ALCULI #### [facility] [address] [address] [address] Lela Okeefe Result Comment: Calc ulus received wet. Wet calculi must be dried before analysis, which delays reporting of results. Leaving calculi wet (such as water, saline, blood, urine) may lead to changes in composition. Comment: Comment Normal [facility] Comment on above: Result Comment: Renita quintanilla questions regarding Calculi Analysis contact [facility] at: [phone]. Performed By: #### C ALCULI #### [facility] [address] [place] [address] Dr. Lela Okeefe Composition Comment Normal [facility] Comment on above: Result Comment: Perc entage (Represents the % composition) Performed By: #### C ALCULI #### [facility] [address] [place] [address] Dr. Lela Okeefe Cystine Normal [facility] Comment on above: Performed By: #### C ALCULI #### [facility] [address] [place] [address] Dr. Lela Okeefe Disclaimer: Comment Normal [facility] Comment on above: Result Comment: This test was developed and its performance characteristics determined by [facility]. It has not been cleared or approved by the Food and Drug Administration. Performed By: #### C ALCULI #### [facility] [address] [address] [address] Lela Okeefe Dried Blood Normal [facility] Comment on above: Performed By: #### C ALCULI #### [facility] [address] [place] [address] Dr. Lela Okeefe Drug or Metabolite Normal [facility] Comment on above: Performed By: #### C ALCULI #### [facility] [address] [place] [address] Dr. Lela Okeefe Hydroxyapatite 10 % Normal [facility] Comment on above: Performed By: #### C ALCULI #### [facility] [address] [place] [address] Dr. Lela Okeefe Mg NH4 PO4 (Struvite) [facility] Comment on above: Performed By: #### C ALCULI #### [facility] [address] [place] [address] Dr. Lela Okeefe MgHPO4 (Newberyite) [facility] Comment on above: Performed By: #### C ALCULI #### [facility] [address] [address] [address] Lela Okeefe Other component(s) [facility] Comment on above: Performed By: #### C ALCULI #### [facility] [address] [address] [address] Lela Okeefe PDF . Normal [facility] Comment on above: Performed By: #### C ALCULI #### [facility] [address] [address] [address] Lela Okeefe Photo Comment [facility] Comment on above: Result Comment: Phot ograph will follow under a separate cover Performed By: #### C ALCULI #### [facility] [address] [address] [address] Lela Okeefe Please note: Comment [facility] Comment on above: Result Comment: Calc mirza report will follow via computer, mail or counter former delivery. Performed By: #### C ALCULI #### [facility] [address] [address] [address] Lela Okeefe Size 5x5 [facility] Comment on above: Result Comment: Simon robertson received. Performed By: #### C ALCULI #### [facility] [address] [address] [address] Lela Okeefe Sodium Acid Urate [facility] Comment on above: Performed By: #### C ALCULI #### [facility] [address] [address] [address] Lela Okeefe Source Comment Normal [facility] Comment on above: Result Comment: Righ t Ureter Performed By: #### C ALCULI #### [facility] [address] [address] [address] Lela Okeefe Triamterene [facility] Comment on above: Performed By: #### C ALCULI #### [facility] [address] [address] [address] Lela Okeefe Uric Acid [facility] Comment on above: Performed By: #### C ALCULI #### [facility] [address] [address] [address] Lela Okeefe Uric Acid Dihydrate Normal [facility] Comment on above: Performed By: #### C ALCULI #### [facility] [address] [address] [address] Lela Okeefe Weight 37 mg Normal [facility] Comment on above: Performed By: #### C ALCULI #### [facility] [address] [address] [address] Lela Okeefe Xanthine Normal [facility] Comment on above: Performed By: #### C ALCULI #### [facility] [address] [address] [address] Lela Okeefe PREG HCG QUALon 07-17-2022 , QUAL Negative Normal NEGATIVE [facility] Comment on above: Performed By: #### C BC #### [facility] [address] [place] [address] Dr. Lela Okeefe Documentationon 07-16-2022 Documentation [id number] Ada Kirkland 1990 F Date Provider Department Center 07/16/2022 ELANA MORALES [facility] Family History Problem Relation Age of Onset Heart attack Father 44 Coronary artery disease Father Clotting disorder Father Family Status - Relation Status Age at Father Alive Normal [facility] Office Visiton 07-15-2022 Follow-up visit [id number] Ada Kirkland 1990 Date Provider Department Center 07/15/2022 OG ERVIN [facility] Family History Problem Relation Age of Onset Heart attack Father 44 Coronary artery disease Father Clotting disorder Father Family Status - Relation Status Age at Father Alive Level of Service:[id number] ND OFFICE/OUTPATIENT ESTABLISHED MOD MDM 30-39 MIN Normal [facility] CBC AUTO DIFFon 07-11-2022 BASO # 0.0 103/ul Normal 0.0-0.1 [facility] Comment on above: Performed By: #### C BC #### [facility] [address] [place] [address] Dr. Lela Okeefe Basophils/100 WBC (Bld) 0.5 % Normal 0.2-2.0 [facility] Comment on above: Performed By: #### C BC #### [facility] [address] [place] [address] Dr. Lela Okeefe EO # 0.1 103/ul Normal 0.0-0.7 [facility] Comment on above: Performed By: #### C BC #### [facility] [address] [place] [address] Dr. Lela Okeefe Eosinophils/100 WBC (Bld) 1.2 % Normal 0.9-7.0 [facility] Comment on above: Performed By: #### C BC #### [facility] [address] [place] [address] Dr. Lela Okeefe Erythrocyte distribution width (RBC) [Ratio] 12.3 % Normal 11.0-15.0 [facility] Comment on above: Performed By: #### C BC #### [facility] [address] [place] [address] Dr. Lela Okeefe Hematocrit (Bld) [Volume fraction] 41.7 % Normal 36.0-48.0 [facility] Comment on above: Performed By: #### C BC #### [facility] [address] [place] [address] Dr. Lela Okeefe Hemoglobin (Bld) [Mass/Vol] 14.1 g/dL Normal 12.0-16.0 [facility] Comment on above: Performed By: #### C BC #### [facility] [address] [place] [address] Dr. Lela Okeefe IG # 0.01 10e3/ul Normal 0.00-0.03 [facility] Comment on above: Performed By: #### C BC #### [facility] [address] [place] [address] Dr. Lela Okeefe IG % 0.2 % Normal 0.0-0.5 [facility] Comment on above: Performed By: #### C BC #### [facility] [address] [place] [address] Dr. Lela Okeefe LYMPH # 2.1 103/ul Normal 1.2-3.8 [facility] Comment on above: Performed By: #### C BC #### [facility] [address] [place] [address] Dr. Lela Okeefe Lymphocytes/100 WBC (Bld) 36.5 % Normal 20.5-60.0 [facility] Comment on above: Performed By: #### C BC #### [facility] [address] [place] [address] Dr. Lela Okeefe MANUAL DIFF REQ NO Normal [facility] Comment on above: Performed By: #### C BC #### [facility] [address] [place] [address] Dr. Lela Okeefe MCH (RBC) [Entitic mass] 30.2 pg Normal 26.7-34.0 [facility] Comment on above: Performed By: #### C BC #### [facility] [address] [place] [address] Dr. Lela Okeefe MCHC (RBC) [Mass/Vol] 33.8 g/dL Normal 29.9-35.2 [facility] Comment on above: Performed By: #### C BC #### [facility] [address] [place] [address] Dr. Lela Okeefe MCV (RBC) [Entitic vol] 89.3 fL Normal 81.0-99.0 [facility] Comment on above: Performed By: #### C BC #### [facility] [address] [place] [address] Dr. eLla Okeefe MONO # 0.5 103/ul Normal 0.3-0.8 [facility] Comment on above: Performed By: #### C BC #### [facility] [address] [place] [address] Dr. Lela Okeefe Monocytes/100 WBC (Bld) 8.4 % Normal 1.7-12.0 [facility] Comment on above: Performed By: #### C BC #### [facility] [address] [place] [address] Dr. Lela Okeefe NEUT # 3.0 103/ul Normal 1.4-6.5 [facility] Comment on above: Performed By: #### C BC #### [facility] [address] [place] [address] Dr. Lela Okeefe Neutrophils/100 WBC (Bld) 53.2 % Normal 43.0-75.0 [facility] Comment on above: Performed By: #### C BC #### [facility] [address] [place] [address] Dr. Lela Okeefe Platelet mean volume (Bld) [Entitic vol] 9.7 fL Normal 9.5-13.5 [facility] Comment on above: Performed By: #### C BC #### [facility] [address] [place] [address] Dr. Lela Okeefe PLT 234 103/ul Normal 150-450 [facility] Comment on above: Performed By: #### C BC #### [facility] [address] [place] [address] Dr. Lela Okeefe RBC 4.67 106/ul Normal 4.20-5.40 [facility] Comment on above: Performed By: #### C BC #### [facility] [address] [place] [address] Dr. Lela Okeefe WBC 5.6 103/ul Normal 4.0-11.0 [facility] Comment on above: Performed By: #### C BC #### [facility] [address] [place] [address] Dr. Lela Okeefe PROF CHEM 8 (BAS METB)on Anion gap [Moles/Vol] 12.5 mmol/L Normal [facility] Comment on above: Performed By: #### C BC #### [facility] [address] [place] [address] Dr. Lela Okeefe Calcium [Mass/Vol] 9.1 mg/dL Normal 8.5-10.1 [facility] Comment on above: Performed By: #### C BC #### [facility] [address] [place] [address] Dr. Lela Okeefe Chloride [Moles/Vol] 105 mmol/L Normal 98-107 [facility] Comment on above: Performed By: #### C BC #### [facility] [address] [address] [address] Lela Okeefe CO2 [Moles/Vol] 28.7 mmol/L Normal 21.0-32.0 [facility] Comment on above: Performed By: #### C BC #### [facility] [address] [address] [address] Lela Okeefe Creatinine [Mass/Vol] 0.73 mg/dL Normal 0.55-1.02 [facility] Comment on above: Performed By: #### C BC #### [facility] [address] [address] [address] Lela Okeefe EGFR-AF MICRONESIAN >60 Normal >=60 [facility] Comment on above: Performed By: #### C BC #### [facility] [address] [place] [address] Dr. Lela Okeefe EGFR-NON AF MICRONESIAN >60 Normal >=60 [facility] Comment on above: Performed By: #### C BC #### [facility] [address] [place] [address] Dr. Lela Okeefe Glucose [Mass/Vol] 81 mg/dL Normal 74-106 [facility] Comment on above: Performed By: #### C BC #### [facility] [address] [place] [address] Dr. Lela Okeefe Potassium [Moles/Vol] 4.2 mmol/L Normal 3.5-5.1 [facility] Comment on above: Performed By: #### C BC #### [facility] [address] [place] [address] Dr. Lela Okeefe Sodium [Moles/Vol] 142 mmol/L Normal 136-145 [facility] Comment on above: Performed By: #### C BC #### [facility] [address] [place] [address] Dr. Lela Okeefe Urea nitrogen [Mass/Vol] 11.0 mg/dL Normal 7.0-18.0 [facility] Comment on above: Performed By: #### C BC #### [facility] [address] [place] [address] Dr. Lela Okeefe Urea nitrogen/Creatinine [Mass ratio] 15.1 mg/mg Normal [facility] Comment on above: Performed By: #### C BC #### [facility] [address] [place] [address] Dr. Lela Okeefe PROTIMEon 07-11-2022 INR Coag (PPP) [Relative time] 0.97 {INR} Normal [facility] Comment on above: Performed By: #### C BC #### [facility] [address] [place] [address] Dr. Lela Okeefe INR GUIDELINES SEE BELOW Normal [facility] Comment on above: Result Comment: BAIRON RED INR: 2.0 - 3.0 CONDITIONS NOT LISTED BELOW 2.5 - 3.5 FOR PROSTHETIC HEART VALVE REPLACEMENT 2.5 - 3.5 RECURRENT THROMBOSIS Performed By: #### C BC #### [facility] [address] [place] [address] Dr. Lela Okeefe PT Coag (PPP) [Time] 10.3 s Normal 9.0-11.6 [facility] Comment on above: Performed By: #### C BC #### [facility] [address] [place] [address] Dr. Lela Okeefe PTTon 07-11-2022 aPTT Coag (Bld) [Time] 27.9 s Normal 22.3-36.2 Th [facility] Comment on above: Performed By: #### C BC #### [facility] [address] [place] [address] ABD/PELVIS WO CONon 06-02 CT ABD/PELVIS [...] by: IRIS FUNEZ Date: 2022-06-02 15:16 Normal [facility] XR KUB 1 VIEWon 05-20-2022 XR [...] ZAHRA MCCLENDON Date: 2022-05-20 14:39 Normal [facility] C3 and C4 COMPLEMENTon 04-15 Complement C3, Serum 191 mg/dL Critically high 82-167 [facility] Comment on above: Performed By: #### C BC #### [facility] [address] [address] [address] Lela Okeefe Complement C4, Serum 38 mg/dL Normal 12-38 [facility] Comment on above: Performed By: #### C BC #### [facility] [address] [address] [address] Lela Okeefe T3, TOTAL (TRIIODOTHYRONINE) on 04-13-2022 T3, TOTAL 109 ng/dL Normal 71-180 [facility] Comment on above: Performed By: #### C BC #### [facility] [address] [address] [address] Lela Oekefe US THYROIDon 04-13-2022 US THYROID EXAMINATION: US [...] ZAHRA MCCLENDON Date: 2022-04-13 20:29 Normal [facility] CBC AUTO DIFFon 04-12-2022 BASO # 0.1 103/ul Normal 0.0-0.1 [facility] Comment on above: Performed By: #### C BC #### [facility] [address] [place] [address] Dr. Lela Okeefe Basophils/100 WBC (Bld) 0.6 % Normal 0.2-2.0 [facility] Comment on above: Performed By: #### C BC #### [facility] [address] [place] [address] Dr. Lela Okeefe EO # 0.0 103/ul Normal 0.0-0.7 [facility] Comment on above: Performed By: #### C BC #### [facility] [address] [address] [address] Lela Okeefe Eosinophils/100 WBC (Bld) 0.4 % Critically low 0.9-7.0 [facility] Comment on above: Performed By: #### C BC #### [facility] [address] [place] [address] Dr. Lela Okeefe Erythrocyte distribution width (RBC) [Ratio] 11.9 % Normal 11.0-15.0 [facility] Comment on above: Performed By: #### C BC #### [facility] [address] [place] [address] Dr. Lela Okeefe Hematocrit (Bld) [Volume fraction] 41.1 % Normal 36.0-48.0 [facility] Comment on above: Performed By: #### C BC #### [facility] [address] [place] [address] Dr. Lela Okeefe Hemoglobin (Bld) [Mass/Vol] 14.9 g/dL Normal 12.0-16.0 [facility] Comment on above: Performed By: #### C BC #### [facility] [address] [place] [address] Dr. Lela Okeefe IG # 0.03 10e3/ul Normal 0.00-0.03 [facility] Comment on above: Performed By: #### C BC #### [facility] [address] [place] [address] Dr. Lela Okeefe IG % 0.3 % Normal 0.0-0.5 [facility] Comment on above: Performed By: #### C BC #### [facility] [address] [place] [address] Dr. Lela Okeefe LYMPH # 1.1 103/ul Critically low 1.2-3.8 [facility] Comment on above: Performed By: #### C BC #### [facility] [address] [place] [address] Dr. Lela Okeefe Lymphocytes/100 WBC (Bld) 12.6 % Critically low 20.5-60.0 [facility] Comment on above: Performed By: #### C BC #### [facility] [address] [place] [address] Dr. Lela Okeefe MANUAL DIFF REQ NO Normal [facility] Comment on above: Performed By: #### C BC #### [facility] [address] [place] [address] Dr. Lela Okeefe MCH (RBC) [Entitic mass] 29.6 pg Normal 26.7-34.0 [facility] Comment on above: Performed By: #### C BC #### [facility] [address] [place] [address] Dr. Lela Okeefe MCHC (RBC) [Mass/Vol] 36.3 g/dL Critically high 29.9-35.2 [facility] Comment on above: Performed By: #### C BC #### [facility] [address] [place] [address] Dr. Lela Okeefe MCV (RBC) [Entitic vol] 81.7 fL Normal 81.0-99.0 [facility] Comment on above: Performed By: #### C BC #### [facility] [address] [place] [address] Dr. Lela Okeefe MONO # 0.9 103/ul Critically high 0.3-0.8 [facility] Comment on above: Performed By: #### C BC #### [facility] [address] [place] [address] Dr. Lela Okeefe Monocytes/100 WBC (Bld) 10.0 % Normal 1.7-12.0 [facility] Comment on above: Performed By: #### C BC #### [facility] [address] [place] [address] Dr. Lela Okeefe NEUT # 6.8 103/ul Critically high 1.4-6.5 [facility] Comment on above: Performed By: #### C BC #### [facility] [address] [place] [address] Dr. Lela Okeefe Neutrophils/100 WBC (Bld) 76.1 % Critically high 43.0-75.0 [facility] Comment on above: Performed By: #### C BC #### [facility] [address] [place] [address] Dr. Lela Okeefe Platelet mean volume (Bld) [Entitic vol] 9.5 fL Normal 9.5-13.5 [facility] Comment on above: Performed By: #### C BC #### [facility] [address] [place] [address] Dr. Lela Okeefe PLT 232 103/ul Normal 150-450 [facility] Comment on above: Performed By: #### C BC #### [facility] [address] [place] [address] Dr. Lela Okeefe RBC 5.03 106/ul Normal 4.20-5.40 [facility] Comment on above: Performed By: #### C BC #### [facility] [address] [place] [address] Dr. Lela Okeefe WBC 9.0 103/ul Normal 4.0-11.0 [facility] Comment on above: Performed By: #### C BC #### [facility] [address] [place] [address] Dr. Lela Okeefe CPKon 04-12-2022 CK [Catalytic activity/Vol] 43 U/L Normal 26-192 [facility] Comment on above: Performed By: #### C BC #### [facility] [address] [place] [address] Dr. Lela Okeefe CREATININEon 04-12-2022 Creatinine [Mass/Vol] 0.85 mg/dL Normal 0.55-1.02 [facility] Comment on above: Performed By: #### C BC #### [facility] [address] [place] [address] Dr. Lela Okeefe EGFR-AF MICRONESIAN >60 Normal >=60 [facility] Comment on above: Performed By: #### C BC #### [facility] [address] [place] [address] Dr. Lela Okeefe EGFR-NON AF MICRONESIAN >60 Normal >=60 [facility] Comment on above: Performed By: #### C BC #### [facility] [address] [place] [address] Dr. Lela Okeefe SED RATE WESTERGRENon 2022 SED RATE 53 mm/hr Critically high <=20 [facility] Comment on above: Performed By: #### C BC #### [facility] [address] [place] [address] Dr. Lela Okeefe UA RANDOM W/MICROSCOPICon BACTERIA NONE SEEN Normal NONE SEEN [facility] Comment on above: Performed By: #### U AMIC #### [facility] [address] [place] [address] Dr. Lela Okeefe Bilirubin Ql (U) Negative Normal NEGATIVE [facility] Comment on above: Performed By: #### U AMIC #### [facility] [address] [address] [address] Lela Okeefe CAST NONE SEEN Normal NONE SEEN [facility] Comment on above: Performed By: #### U AMIC #### [facility] [address] [address] [address] Lela Okeefe Clarity (U) CLEAR Normal CLEAR [facility] Comment on above: Performed By: #### U AMIC #### [facility] [address] [address] [address] Lela Okeefe Color (U) YELLOW Normal YELLOW [facility] Comment on above: Performed By: #### U AMIC #### [facility] [address] [place] [address] Dr. Lela Okeefe Crystals LM Nom (Urine sed) NONE SEEN Normal NONE SEEN [facility] Comment on above: Performed By: #### U AMIC #### [facility] [address] [place] [address] Dr. Lela Okeefe Epithelial cells LM Ql (Urine sed) FEW Abnormal NONE SEEN /RARE [facility] Comment on above: Performed By: #### U AMIC #### [facility] [address] [address] [address] Lela Okeefe Glucose Ql (U) Negative Normal NEGATIVE [facility] Comment on above: Performed By: #### U AMIC #### [facility] [address] [address] [address] Lela Okeefe Hemoglobin Ql (U) Negative Normal NEGATIVE [facility] Comment on above: Performed By: #### U AMIC #### [facility] [address] [address] [address] Lela Okeefe Ketones Ql (U) Negative Normal NEGATIVE [facility] Comment on above: Performed By: #### U AMIC #### [facility] [address] [place] [address] Dr. Lela Okeefe LEUKOCYTES Negative Normal NEGATIVE [facility] Comment on above: Performed By: #### U AMIC #### [facility] [address] [place] [address] Dr. Lela Okeefe MUCOUS TRACE Abnormal NONE SEEN [facility] Comment on above: Performed By: #### U AMIC #### [facility] [address] [place] [address] Dr. Lela Okeefe Nitrite Ql (U) Negative Normal NEGATIVE [facility] Comment on above: Performed By: #### U AMIC #### [facility] [address] [place] [address] Dr. Lela Okeefe pH (U) 6.0 [pH] Normal 5-9 [facility] Comment on above: Performed By: #### U AMIC #### [facility] [address] [place] [address] Dr. Lela Okeefe RBC 0-2 Normal 0-2 [facility] Comment on above: Performed By: #### U AMIC #### [facility] [address] [place] [address] Dr. Lela Okeefe SPEC GRAVITY 1.020 Normal 1.005-<=1. 025 [facility] Comment on above: Performed By: #### U AMIC #### [facility] [address] [place] [address] Dr. Lela Okeefe UA PROTEIN Negative Normal NEGATIVE/ TRACE [facility] Comment on above: Performed By: #### U AMIC #### [facility] [address] [place] [address] Dr. Lela Okeefe Urobilinogen Qn (U) 0.2 {Fidelia'U}/dL Normal 0.2 - 1. 0 [facility] Comment on above: Performed By: #### U AMIC #### [facility] [address] [place] [address] Dr. Lela Okeefe WBC NONE SEEN Normal NONE SEEN [facility] Comment on above: Performed By: #### U AMIC #### [facility] [address] [place] [address] Dr. Lela Okeefe CBC AUTO DIFFon 04-10-2022 BASO # 0.0 103/ul Normal 0.0-0.1 [facility] Comment on above: Performed By: #### C BC #### [facility] [address] [place] [address] Dr. Lela Okeefe Basophils/100 WBC (Bld) 0.3 % Normal 0.2-2.0 [facility] Comment on above: Performed By: #### C BC #### [facility] [address] [place] [address] Dr. Lela Okeefe EO # 0.0 103/ul Normal 0.0-0.7 [facility] Comment on above: Performed By: #### C BC #### [facility] [address] [place] [address] Dr. Lela Okeefe Eosinophils/100 WBC (Bld) 0.1 % Critically low 0.9-7.0 [facility] Comment on above: Performed By: #### C BC #### [facility] [address] [place] [address] Dr. Lela Okeefe Erythrocyte distribution width (RBC) [Ratio] 11.9 % Normal 11.0-15.0 [facility] Comment on above: Performed By: #### C BC #### [facility] [address] [place] [address] Dr. Lela Okeefe Hematocrit (Bld) [Volume fraction] 46.1 % Normal 36.0-48.0 [facility] Comment on above: Performed By: #### C BC #### [facility] [address] [place] [address] Dr. Lela Okeefe Hemoglobin (Bld) [Mass/Vol] 14.5 g/dL Normal 12.0-16.0 [facility] Comment on above: Performed By: #### C BC #### [facility] [address] [place] [address] Dr. Lela Okeefe IG # 0.01 10e3/ul Normal 0.00-0.03 [facility] Comment on above: Performed By: #### C BC #### [facility] [address] [place] [address] Dr. Lela Okeefe IG % 0.1 % Normal 0.0-0.5 [facility] Comment on above: Performed By: #### C BC #### [facility] [address] [place] [address] Dr. Lela Okeefe LYMPH # 1.1 103/ul Critically low 1.2-3.8 [facility] Comment on above: Performed By: #### C BC #### [facility] [address] [place] [address] Dr. Lela Okeefe Lymphocytes/100 WBC (Bld) 11.7 % Critically low 20.5-60.0 [facility] Comment on above: Performed By: #### C BC #### [facility] [address] [place] [address] Dr. Lela Okeefe MANUAL DIFF REQ NO Normal [facility] Comment on above: Performed By: #### C BC #### [facility] [address] [place] [address] Dr. Lela Okeefe MCH (RBC) [Entitic mass] 29.8 pg Normal 26.7-34.0 [facility] Comment on above: Performed By: #### C BC #### [facility] [address] [place] [address] Dr. Lela Okeefe MCHC (RBC) [Mass/Vol] 31.5 g/dL Normal 29.9-35.2 [facility] Comment on above: Performed By: #### C BC #### [facility] [address] [place] [address] Dr. Lela Okeefe MCV (RBC) [Entitic vol] 94.7 fL Normal 81.0-99.0 [facility] Comment on above: Performed By: #### C BC #### [facility] [address] [place] [address] Dr. Lela Okeefe MONO # 0.8 103/ul Normal 0.3-0.8 [facility] Comment on above: Performed By: #### C BC #### [facility] [address] [place] [address] Dr. Lela Okeefe Monocytes/100 WBC (Bld) 7.9 % Normal 1.7-12.0 [facility] Comment on above: Performed By: #### C BC #### [facility] [address] [place] [address] Dr. Lela Okeefe NEUT # 7.7 103/ul Critically high 1.4-6.5 [facility] Comment on above: Performed By: #### C BC #### [facility] [address] [place] [address] Dr. Llea Okeefe Neutrophils/100 WBC (Bld) 79.9 % Critically high 43.0-75.0 [facility] Comment on above: Performed By: #### C BC #### [facility] [address] [place] [address] Dr. Lela Okeefe Platelet mean volume (Bld) [Entitic vol] 10.2 fL Normal 9.5-13.5 [facility] Comment on above: Performed By: #### C BC #### [facility] [address] [place] [address] Dr. Lela Okeefe PLT 230 103/ul Normal 150-450 [facility] Comment on above: Performed By: #### C BC #### [facility] [address] [place] [address] Dr. Lela Okeefe RBC 4.87 106/ul Normal 4.20-5.40 [facility] Comment on above: Performed By: #### C BC #### [facility] [address] [place] [address] Dr. Lela Okeefe WBC 9.6 103/ul Normal 4.0-11.0 [facility] Comment on above: Performed By: #### C BC #### [facility] [address] [place] [address] Dr. Lela Okeefe FREE T3on 04-10-2022 FREE T3 2.59 pg/mlL Normal 2.18-3.98 [facility] Comment on above: Performed By: #### C BC #### [facility] [address] [place] [address] Dr. Lela Okeefe FREE T4on 04-10-2022 Free T4 [Mass/Vol] 1.00 ng/dL Normal 0.76-1.46 [facility] Comment on above: Performed By: #### F T4 #### [facility] [address] [address] [address] Lela Okeefe PROF CHEM 8 (BAS METB)on Anion gap [Moles/Vol] 12.3 mmol/L Normal Th [facility] Comment on above: Performed By: #### B MP, TSH #### [facility] [address] [place] [address] Dr. Lela Okeefe Calcium [Mass/Vol] 9.4 mg/dL Normal 8.5-10.1 [facility] Comment on above: Performed By: #### B MP, TSH #### [facility] [address] [address] [address] Lela Okeefe Chloride [Moles/Vol] 102 mmol/L Normal 98-107 [facility] Comment on above: Performed By: #### B MP, TSH #### [facility] [address] [place] [address] Dr. Lela Okeefe CO2 [Moles/Vol] 28.3 mmol/L Normal 21.0-32.0 [facility] Comment on above: Performed By: #### B MP, TSH #### [facility] [address] [address] [address] Lela Okeefe Creatinine [Mass/Vol] 0.77 mg/dL Normal 0.55-1.02 [facility] Comment on above: Performed By: #### B MP, TSH #### [facility] [address] [place] [address] Dr. Lela Okeefe EGFR-AF MICRONESIAN >60 Normal >=60 [facility] Comment on above: Performed By: #### B MP, TSH #### [facility] [address] [place] [address] Dr. Lela Okeefe EGFR-NON AF MICRONESIAN >60 Normal >=60 [facility] Comment on above: Performed By: #### B MP, TSH #### [facility] [address] [place] [address] Dr. Lela Okeefe Glucose [Mass/Vol] 101 mg/dL Normal 74-106 [facility] Comment on above: Performed By: #### B MP, TSH #### [facility] [address] [address] [address] Lela Okeefe Potassium [Moles/Vol] 4.6 mmol/L Normal 3.5-5.1 [facility] Comment on above: Performed By: #### B MP, TSH #### [facility] [address] [address] [address] Lela Okeefe Sodium [Moles/Vol] 138 mmol/L Normal 136-145 [facility] Comment on above: Performed By: #### B MP, TSH #### [facility] [address] [address] [address] Lela Okeefe Urea nitrogen [Mass/Vol] 11.0 mg/dL Normal 7.0-18.0 [facility] Comment on above: Performed By: #### B MP, TSH #### [facility] [address] [place] [address] Dr. Lela Okeefe Urea nitrogen/Creatinine [Mass ratio] 14.3 mg/mg Normal [facility] Comment on above: Performed By: #### B MP, TSH #### [facility] [address] [address] [address] Lela Okeefe TSHon 04-10-2022 TSH 0.346 uIU/mL Critically low 0.358-3.74 0 [facility] Comment on above: Performed By: #### B MP, TSH #### [facility] [address] [place] [address] Dr. Lela Okeefe ECHOCARDIO M/2D COMPLETEon 1 ECHOCARDIO M/2D COMPLETE Patient: MORGAN KIRKLAND Exam Date: 12/24/2021 : 1990 Gender:F Ordering : ROYER DINH Admission #: [id number] Family : DR DAVID NEWBERRY M.D. Order #: [id number] CLICK HERE TO VIEW EXAM ECHOCARDIOGRAM REPORT [...] M.D. on 12/24/2021 at 15:14 Normal [facility] CBC AUTO DIFFon 11-23-2021 BASO # 0.0 103/ul Normal 0.0-0.1 [facility] Comment on above: Performed By: #### C BC #### [facility] [address] [place] [address] Dr. Lela Okeefe Basophils/100 WBC (Bld) 0.4 % Normal 0.2-2.0 [facility] Comment on above: Performed By: #### C BC #### [facility] [address] [place] [address] Dr. Lela Okeefe EO # 0.1 103/ul Normal 0.0-0.7 [facility] Comment on above: Performed By: #### C BC #### [facility] [address] [place] [address] Dr. Lela Okeefe Eosinophils/100 WBC (Bld) 1.4 % Normal 0.9-7.0 [facility] Comment on above: Performed By: #### C BC #### [facility] [address] [place] [address] Dr. Lela Okeefe Erythrocyte distribution width (RBC) [Ratio] 12.0 % Normal 11.0-15.0 [facility] Comment on above: Performed By: #### C BC #### [facility] [address] [place] [address] Dr. Lela Okeefe Hematocrit (Bld) [Volume fraction] 43.0 % Normal 36.0-48.0 [facility] Comment on above: Performed By: #### C BC #### [facility] [address] [place] [address] Dr. Lela Okeefe Hemoglobin (Bld) [Mass/Vol] 14.4 g/dL Normal 12.0-16.0 [facility] Comment on above: Performed By: #### C BC #### [facility] [address] [place] [address] Dr. Lela Okeefe IG # 0.02 10e3/ul Normal 0.00-0.03 [facility] Comment on above: Performed By: #### C BC #### [facility] [address] [place] [address] Dr. Lela Okeefe IG % 0.3 % Normal 0.0-0.5 [facility] Comment on above: Performed By: #### C BC #### [facility] [address] [place] [address] Dr. Lela Okeefe LYMPH # 2.1 103/ul Normal 1.2-3.8 [facility] Comment on above: Performed By: #### C BC #### [facility] [address] [place] [address] Dr. Lela Okeefe Lymphocytes/100 WBC (Bld) 29.2 % Normal 20.5-60.0 [facility] Comment on above: Performed By: #### C BC #### [facility] [address] [place] [address] Dr. Lela Okeefe MANUAL DIFF REQ NO Normal [facility] Comment on above: Performed By: #### C BC #### [facility] [address] [place] [address] Dr. Lela Okeefe MCH (RBC) [Entitic mass] 29.7 pg Normal 26.7-34.0 [facility] Comment on above: Performed By: #### C BC #### [facility] [address] [place] [address] Dr. Lela Okeefe MCHC (RBC) [Mass/Vol] 33.5 g/dL Normal 29.9-35.2 [facility] Comment on above: Performed By: #### C BC #### [facility] [address] [place] [address] Dr. Lela Okeefe MCV (RBC) [Entitic vol] 88.7 fL Normal 81.0-99.0 [facility] Comment on above: Performed By: #### C BC #### [facility] [address] [place] [address] Dr. Lela Okeefe MONO # 0.5 103/ul Normal 0.3-0.8 [facility] Comment on above: Performed By: #### C BC #### [facility] [address] [place] [address] Dr. Lela Okeefe Monocytes/100 WBC (Bld) 6.9 % Normal 1.7-12.0 [facility] Comment on above: Performed By: #### C BC #### [facility] [address] [place] [address] Dr. Lela Okeefe NEUT # 4.4 103/ul Normal 1.4-6.5 [facility] Comment on above: Performed By: #### C BC #### [facility] [address] [place] [address] Dr. Lela Okeefe Neutrophils/100 WBC (Bld) 61.8 % Normal 43.0-75.0 [facility] Comment on above: Performed By: #### C BC #### [facility] [address] [place] [address] Dr. Lela Okeefe Platelet mean volume (Bld) [Entitic vol] 9.3 fL Critically low 9.5-13.5 [facility] Comment on above: Performed By: #### C BC #### [facility] [address] [place] [address] Dr. Lela Okeefe PLT 239 103/ul Normal 150-450 [facility] Comment on above: Performed By: #### C BC #### [facility] [address] [place] [address] Dr. Lela Okeefe RBC 4.85 106/ul Normal 4.20-5.40 [facility] Comment on above: Performed By: #### C BC #### [facility] [address] [place] [address] Dr. Lela Okeefe WBC 7.1 103/ul Normal 4.0-11.0 [facility] Comment on above: Performed By: #### C BC #### [facility] [address] [place], [place] [address] Dr. Lela Okeefe LIPID PROFILEon 11-23-2021 CHOL-HDL RATIO NORM SEE BELOW Normal [facility] Comment on above: Result Comment: 3.3 - 4.4 LOW RISK 4.4 - 7.1 AVERAGE RISK 7.1 - 11.0 MODERATE RISK >11.0 HIGH RISK Performed By: #### C BC #### [facility] [address] [address] [address] Lela Okeefe Cholesterol [Mass/Vol] 177 mg/dL Normal <=200 Th [facility] Comment on above: Performed By: #### C BC #### [facility] [address] [place] [address] Dr. Lela Okeefe Cholesterol in HDL [Mass/Vol] 38 mg/dL Critically low 40-60 [facility] Comment on above: Performed By: #### C BC #### [facility] [address] [place] [address] Dr. Lela Okeefe Cholesterol in LDL [Mass/Vol] 121.6 mg/dL Normal [facility] Comment on above: Performed By: #### C BC #### [facility] [address] [place] [address] Dr. Lela Okeefe Cholesterol.total/Chol esterol in HDL [Mass ratio] 4.7 {ratio} Normal [facility] Comment on above: Performed By: #### C BC #### [facility] [address] [place] [address] Dr. Lela Okeefe HDL NORMAL > or = 60 mg/dl - LO W CARDIOVASCULAR RISK <40 mg/dl - HIGH CARDIOVASCULAR RISK Normal [facility] Comment on above: Performed By: #### C BC #### [facility] [address] [place], [place] [id number] Dr. Lela Okeefe LDL CALC NORMAL SEE BELOW Normal [facility] Comment on above: Result Comment: <100 mg/dl OPTIMAL 100 - 129 mg/dl NEAR OR ABOVE OPTIMAL 130 - 159 mg/dl BORDERLINE HIGH 160 - 189 mg/dl HIGH >190 mg/dl VERY HIGH Performed By: #### C BC #### [facility] [address] [place] [address] Dr. Lela Okeefe Triglyceride [Mass/Vol] 87 mg/dL Normal <=150 [facility] Comment on above: Performed By: #### C BC #### [facility] [address] [place] [address] Dr. Lela Okeefe VLDL CALC 17.4 mg/dL Normal [facility] Comment on above: Performed By: #### C BC #### [facility] [address] [place] [address] Dr. Lela Okeefe PROF CHEM 8 (BAS METB)on Anion gap [Moles/Vol] 9.2 mmol/L Normal [facility] Comment on above: Performed By: #### B MP, TSH, LIPID #### [facility] [address] [place] [address] Dr. Lela Okeefe Calcium [Mass/Vol] 8.9 mg/dL Normal 8.5-10.1 [facility] Comment on above: Performed By: #### B MP, TSH, LIPID #### [facility] [address] [place] [address] Dr. Lela Okeefe Chloride [Moles/Vol] 105 mmol/L Normal 98-107 [facility] Comment on above: Performed By: #### B MP, TSH, LIPID #### [facility] [address] [place] [address] Dr. Lela Okeefe CO2 [Moles/Vol] 28.8 mmol/L Normal 21.0-32.0 [facility] Comment on above: Performed By: #### B MP, TSH, LIPID #### [facility] [address] [place] [address] Dr. Lela Okeefe Creatinine [Mass/Vol] 0.77 mg/dL Normal 0.55-1.02 [facility] Comment on above: Performed By: #### B MP, TSH, LIPID #### [facility] [address] [place] [address] Dr. Lela Okeefe EGFR-AF MICRONESIAN >60 Normal >=60 [facility] Comment on above: Performed By: #### B MP, TSH, LIPID #### [facility] [address] [address] [address] Lela Okeefe EGFR-NON AF MICRONESIAN >60 Normal >=60 [facility] Comment on above: Performed By: #### B MP, TSH, LIPID #### [facility] [address] [address] [address] Lela Okeefe Glucose [Mass/Vol] 103 mg/dL Normal 74-106 [facility] Comment on above: Performed By: #### B MP, TSH, LIPID #### [facility] [address] [address] [address] Lela Okeefe Potassium [Moles/Vol] 4.0 mmol/L Normal 3.5-5.1 [facility] Comment on above: Performed By: #### B MP, TSH, LIPID #### [facility] [address] [address] [address] Lela Okeefe Sodium [Moles/Vol] 139 mmol/L Normal 136-145 [facility] Comment on above: Performed By: #### B MP, TSH, LIPID #### [facility] [address] [address] [address] Lela Okeefe Urea nitrogen [Mass/Vol] 10.0 mg/dL Normal 7.0-18.0 [facility] Comment on above: Performed By: #### B MP, TSH, LIPID #### [facility] [address] [address] [address] Lela Okeefe Urea nitrogen/Creatinine [Mass ratio] 13.0 mg/mg Normal [facility] Comment on above: Performed By: #### B MP, TSH, LIPID #### [facility] [address] [address] [address] Lela Okeefe TSHon 11-23-2021 TSH 1.092 uIU/mL Normal 0.358-3.74 0 [facility] Comment on above: Performed By: #### C BC #### [facility] [address] [place] [address] Dr. Lela Okeefe PROGRESSon 03-29-2019 PROGRESS HNO ID: [id number] Author: Jose Olea Service: ? Author Type: Physician Type: Progress Notes Filed: 03/29/2019 10:25 AM Note Text: Patient here for ultrasound. See ultrasound report for details. Jose Olea MD [facility] PROGRESSon 03-15-2019 PROGRESS HNO ID: [id number] Author: Dasha Ibanez Service: ? Author Type: [...] normal. See ultrasound report Dasha Ibanez MD [facility] PROGRESSon 03-01-2019 PROGRESS HNO ID: [id number] Author: Tobias Yang Service: ? Author Type: [...] tab in Epic ? Tobias Yang MD [facility] PROGRESSon 02-16-2019 PROGRESS HNO ID: [id number] Author: Tobias Yang Service: ? Author Type: [...] tab in Epic ? Tobias Yang MD [facility] PROGRESSon 01-31-2019 PROGRESS HNO ID: [id number] Author: Tobias Yang Service: ? Author Type: [...] tab in Epic ? Tobias Yang MD [facility] PROGRESSon 01-18-2019 PROGRESS HNO ID: [id number] Author: Tobias Yang Service: ? Author Type: [...] Imaging tab in Epic Tobias Yang MD [facility] Vital Signs Date Time Vital Sign Value Performing Clinician Facility 07-24-2023 08:28-0400 Body height 170.18 cm [facility] 07-24-2023 08:28-0400 Body mass index (BMI) [Ratio] 44.1 kg/m2 [facility] 07-24-2023 08:28-0400 Body weight 127.91 kg [facility] 07-24-2023 08:28-0400 Diastolic blood pressure 78 mm[Hg] [facility] 07-24-2023 08:28-0400 Heart rate 63 /min [facility] 07-24-2023 08:28-0400 Systolic blood pressure 114 mm[Hg] [facility] 03-20-2023 08:30-0500 Body height 170.18 cm David Newberry Other [employer] [facility] [employer] Other 03-20-2023 08:30-0500 Body mass index (BMI) [Ratio] 43.47 kg/m2 David Newberry Other [employer] Other 03-20-2023 08:30-0500 Body weight 125.92 kg David Newberry Other [employer] Other 03-20-2023 08:30-0500 Diastolic blood pressure 74 mm[Hg] David Newberry Other [employer] Other 03-20-2023 08:30-0500 Systolic blood pressure 109 mm[Hg] David Newberry Other [employer] Other 01-23-2023 08:56-0500 Blood Pressure Location Clark CLEMENS [facility] 01-23-2023 08:56-0500 Diastolic blood pressure 82 mm[Hg] Clark CLEMENS [facility] 01-23-2023 08:56-0500 Heart rate 73 /min Clark CLEMENS [facility] 01-23-2023 08:56-0500 Respiratory rate 16 /min Clark CLEMENS [facility] 01-23-2023 08:56-0500 Systolic blood pressure 124 mm[Hg] Clark CLEMENS [facility] 12-29-2022 12:42-0400 Diastolic blood pressure 74 mm[Hg] MD David Newberry Work Phone: [facility] 12-29-2022 12:42-0400 Heart rate 95 /min MD David Newberry Work Phone: [facility] 12-29-2022 12:42-0400 Respiratory rate 18 /min MD David Newberry Work Phone: [facility] 12-29-2022 12:42-0400 SaO2% (BldA) [Mass fraction] 97 % MD David Newberry Work Phone: [facility] 12-29-2022 12:42-0400 Systolic blood pressure 105 mm[Hg] MD David Newberry Work Phone: [facility] 12-29-2022 09:45-0400 Body temperature 98.6 [degF] MD David Newberry Work Phone: [facility] 12-29-2022 09:07-0400 Inhaled oxygen flow rate 8 L/min MD David Newberry Work Phone: [facility] 12-29-2022 07:18-0400 Body height 170.18 cm MD David Newberry Work Phone: [facility] 12-29-2022 07:18-0400 Body mass index (BMI) [Ratio] 42.3 kg/m2 MD David Newberry Work Phone: [facility] 12-29-2022 07:18-0400 Body weight 122.46 kg MD David Newberry Work Phone: [facility] 05-19-2022 10:18-0500 Blood Pressure Location Clark CLEMENS [facility] 05-19-2022 10:18-0500 Diastolic blood pressure 71 mm[Hg] Clark CLEMENS [facility] 05-19-2022 10:18-0500 Heart rate 51 /min Clark CLEMENS [facility] 05-19-2022 10:18-0500 Respiratory rate 16 /min Clark CLEMENS [facility] 05-19-2022 10:18-0500 Systolic blood pressure 113 mm[Hg] Clark CLEMENS [facility] 04-10-2022 15:00-0500 Body height 170.18 cm David Newberry Other [employer] [facility] [employer] Other 04-10-2022 15:00-0500 Body mass index (BMI) [Ratio] 36.33 kg/m2 David Newberry Other [employer] [facility] [employer] Other 04-10-2022 15:00-0500 Body weight 105.24 kg David Newberry Other [employer] Other 04-10-2022 15:00-0500 Diastolic blood pressure 74 mm[Hg] David Newberry Other [employer] Other 04-10-2022 15:00-0500 SaO2% (BldA) [Mass fraction] 97 % David Newberry Other [employer] Other 04-10-2022 15:00-0500 Systolic blood pressure 122 mm[Hg] David Newberry Other [employer] Other Encounters Encounter Date Encounter Type Care Provider Facility Start: 08-07-2023 End: 08-08-2023 ambulatory Clark CLEMENS Facility:[facility] Start: 08-07-2023 End: 08-07-2023 Lab Drop off Clark CLEMENS [facility] Start: 08-07-2023 End: 08-08-2023 ambulatory Clark CLEMENS Facility: [place] Start: 08-07-2023 End: 08-07-2023 Patient encounter procedure Clark CLEMENS [facility] [place] Start: 07-27-2023 End: 07-27-2023 ambulatory [facility] Not Available Start: 07-24-2023 End: 07-24-2023 ambulatory [facility] Work Phone: Start: 07-24-2023 End: 07-24-2023 Patient encounter procedure [facility] Work Phone: Start: 07-07-2023 End: 07-07-2023 ambulatory GERSON [facility] Start: 03-20-2023 End: 03-20-2023 ambulatory David Newberry Other [employer] Other Start: 03-20-2023 Office outpatient vi sit 15 minutes David Newberry [facility] Start: 03-03-2023 End: 03-03-2023 ambulatory [facility] Start: 02-27-2023 End: 03-02-2023 ambulatory DAVID NEWBERRY [facility] Start: 02-27-2023 End: 03-01-2023 Subsequent hospital visit by physician [facility] Comment on above: Postural dizziness w ith near syncope Start: 02-10-2023 End: 02-10-2023 ambulatory DASHA E JOSE Not Available Start: 01-23-2023 End: 01-24-2023 ambulatory Clark CLEMENS Facility: [place] Start: 01-23-2023 End: 01-23-2023 Patient encounter procedure Clark CLEMENS [facility] Start: 01-20-2023 End: 01-20-2023 ambulatory Enrique Lucas Facility:[facility] Start: 01-20-2023 End: 01-20-2023 ambulatory MD David Newberry Work Phone: [facility] Work Phone: Start: 01-20-2023 End: 01-20-2023 Patient encounter procedure MD David Newberry Work Phone: [facility] [address] Work Phone: Start: 01-09-2023 End: 01-09-2023 ambulatory [facility] Start: 12-29-2022 End: 12-29-2022 ambulatory Dasha Rachanaamador Facility:[facility] Start: 12-29-2022 End: 12-29-2022 Admission to same day surgery center MD David Newberry Work Phone: [facility] [address] [place] Start: 12-15-2022 End: 12-15-2022 ambulatory Dasha Rachanaamador Facility:[facility] Start: 12-15-2022 End: 12-15-2022 ambulatory MD David Newberry Work Phone: [facility] Work Phone: Start: 12-15-2022 End: 12-15-2022 Patient encounter procedure MD David Newberry Work Phone: [facility] Work Phone: Start: 10-10-2022 End: 10-10-2022 ambulatory David Newberry Other [employer] Other Start: 10-10-2022 Telephone encounter David Newberry [facility] Start: 09-10-2022 End: 09-10-2022 [facility] Start: 08-29-2022 End: 08-29-2022 [facility] Start: 08-21-2022 End: 08-21-2022 ambulatory [facility] Start: 07-17-2022 End: 07-17-[address] DAVID NEWBERRY Facility:[facility] Start: 07-17-2022 Encounter for other preprocedural examination DR CLARK CLEMENS . [facility] Start: 07-17-2022 Encounter for preprocedural cardiovascular examination DR CLARK CLEMENS . [facility] Start: 07-17-2022 Encounter for preprocedural laboratory examination DR CLARK CLEMENS . [facility] Start: 07-15-2022 End: 07-15-2022 ambulatory [facility] Start: 07-11-2022 End: 07-12-[address] DAVID NEWBERRY Facility:[facility] Start: 07-11-2022 End: 07-12-2022 Encounter for preprocedural laboratory examination DR DAVID NEWBERRY Facility:[facility] Start: 06-02-2022 End: 06-03-[address] DAVID NEWBERRY Facility:[facility] Start: 05-19-2022 End: 05-20-[address] DAVID NEWBERRY Facility:[facility] Start: 05-19-2022 End: 05-19-2022 Patient encounter procedure Clark CLEMENS [facility] Start: 05-16-2022 End: 05-16-2022 ambulatory David Newberry Other [employer] Other Start: 05-16-2022 Telephone encounter David Newberry [facility] Start: 05-09-2022 End: 05-09-2022 ambulatory David Newberry Other [employer] Other Start: 05-09-2022 Nursing evaluation o f patient and report David Newberry [facility] Start: 04-25-2022 End: 04-25-2022 ambulatory David Newberry Other [employer] Other Start: 04-25-2022 Telephone encounter David Newberry [facility] Start: 04-23-[address] DAVID NEWBERRY Facil ity:[facility] Start: 04-12-2022 End: 04-13-[address] DAVID NEWBERRY Facility:[facility] Start: 04-11-2022 End: 04-11-[address] DAVID NEWBERRY [facility] [employer] Other Start: 04-11-2022 Telephone encounter David Newberry [facility] Start: 04-10-2022 Office outpatient vi sit 15 minutes David Newberry [facility] Start: 04-10-2022 End: 04-10-[address] AMBIKA SALDAÑA . [employer] Other Start: 01-09-2022 Adult health examination Gabbi Newberry Other [employer] Other Start: 12-24-2021 End: 12-25-2021 ambulatory ROYER DINH Facility:[facility] Start: 11-29-2021 Encounter for genera l adult medical examination without abnormal findings DR DAVID NEWBERRY [facility] Start: 11-23-2021 End: 11-24-[address] DAVID NEWBERRY Facility:[facility] Start: 11-23-2021 End: 11-24-2021 Encounter for general adult medical examination without abnormal findings DR DAVID NEWBERRY Facility:[facility] Procedures Date Procedure Procedure Detail Performing Clinician Start: 02-27-2023 Cardiovascular funct ion eval w/tilt table w/mntr Elana Ramirez PACKAGE REINSPECTOR - [employer]ILY [employer] REGIST[employer] Work Phone: Start: 12-29-2022 Total hysterectomy v ia vaginal approach MD David Newberry Work Phone: Start: 12-15-2022 Antibody screen Enrique Lucas Comment on above: Order Comment: Date of Surgery: [id number] Result Comment: PERF ORMED BY: [facility] [place] [address] PATHOLOGIST RN MATERNITY OLIMPIA MORA M.D. Start: 07-17-2022 Transurethral cystoscopy Clark CLEMENS Start: 03-16-2012 Tonsillectomy and adenoidectomy Clarkjosse CLEMENS H/O: hysterectomy S/P laparoscop ic hysterectomy MD David Newberry Work Phone: Laparoscopic-assiste d vaginal hysterectomy Clark CLEMENS Plan of Treatment Date Care Activity Detail Author Start: 06-06-2029 DTaP/Tdap/Td vaccine (2 - Td or Tdap) DTaP/Tdap/Td vaccine (2 - Td or Tdap) [facility] Start: 01-29-2024 ambulatory Ambulatory Facility:[facility] Start: 01-20-2023 Bacteria identified in Urine by Culture Urine Culture [facility] Start: 12-29-2022 [facility] Start: 12-29-2022 Hospital admission [facility] Start: 11-14-2022 COVID-19 Vaccine ( season) COVID-19 Vaccine () [facility] Start: 10-14-2022 Influenza vaccination Flu vaccine (# 1) [facility] Start: 2020 Screening for malign ant neoplasm of cervix [facility] [employer] Start: 12-08-2011 Screening for malign ant neoplasm of cervix Pap smear [facility] Start: 2008 Hepatitis C screening Hepatitis C sc reen [facility] Start: 2005 HIV screening HIV screen [facility] Start: 2002 Depression Screen Depression Screen [facility] Start: 12-08-1991 Varicella vaccine (1 of 2 - 2-dose childhood series) Varicella vaccine (1 of 2 - 2-dose childhood series) [facility] Start: 1990 Hepatitis B vaccine (1 of 3 - 3-dose series) Hepatitis B vaccine (1 of 3 - 3-dose series) [facility] Complement C3 [Mass/volume] in Serum or Plasma [facility] Complement C4 [Mass/volume] in Serum or Plasma [facility] Patient referral [facility] Work Phone: End: 02-27-2023 Tilt table Tilt table CV Cardiac Diagnostics Routine Postural dizziness with near syncope 1 Occurrences starting 02/27/2023 until 02/27/2023 [facility] Work Phone: Comment on above: 1 Occurrences starti ng 02/27/2023 until 02/27/2023 [facility] Immunizations Immunization Date Immunization Notes Care Provider Silvia marinelli 04-25-2020 SARS-CoV-2 (COVID-19 ) mRNA-1273 vaccine Clark CLEMENS [facility] 03-28-2020 SARS-CoV-2 (COVID-19 ) mRNA-1273 vaccine Clark CLEMENS [facility] 06-07-2019 tetanus toxoid, redu ashly diphtheria toxoid, and acellular pertussis vaccine, adsorbed Clark CLEMENS [facility] 07-01-2018 hepatitis B vaccine, adult dosage Clark CLEMENS [facility] 05-21-2018 hepatitis B vaccine, adult dosage Clark CLEMENS [facility] Payers Date Payer Category Payer Unknown [id number] 2.16.84 [id number] 1990 Unknown [id number] 2.16.84 0.1.085800.3.579.2.593 1990 Unknown [id number] 2.16.84 0.1.607069.3.579.2.593 1990 Unknown [id number] 2.16.84 0.1.844204.3.579.2.593 1990 Unknown [id number] 2.16.84 0.1.738639.3.579.2.593 1990 Unknown [id number] 2.16.84 0.1.506514.3.579.2.593 1990 Unknown [id number] 2.16.84 0.1.145021.3.579.2.593 1990 Unknown [id number] 2.16.84 0.1.138777.3.579.2.593 1990 Unknown [id number] 2.16.84 0.1.558577.3.579.2.593 1990 Unknown [id number] 2.16.84 0.1.115416.3.579.2.593 1990 Unknown [id number] 2.16.84 0.1.452414.3.579.2.593 1990 Unknown [id number] 2.16.84 0.1.631227.3.579.2.593 1990 Unknown [id number] 2.16.8 40.1.516531.3.579.2.173 1990 Unknown [id number] 2.16.84 0.1.383679.3.579.2.1259 1990 Unknown [id number] 2.16.840 .1.226201.3.579.2.1259 1990 Unknown [id number] 2.16.8 40.1.171638.3.579.2.727 1990 Unknown [id number] 2.16.8 40.1.318647.3.579.2.727 1990 Unknown [id number] 2.16.8 40.1.222048.3.579.2.727 1990 Unknown [id number] 2.16.8 40.1.661899.3.579.2.727 1990 Unknown [id number] 2.16.8 40.1.413790.3.579.2.727 1959 Private Health Insurance [id number] Self-pay Private Health Insurance [id number] 2.16.840.1.239327.19 Unknown [id number] 2.16.8 40.1.240158.3.579.2.531 Unknown [id number] 2.16.8 40.1.869393.3.579.2.531 Unknown [id number] 2.16.8 40.1.363978.3.579.2.531 Social History Date Type Detail Facility Unknown if ever smoked [employer] Other Sex Assigned At [facility] Start: 05-19-2022 End: 12-29-2022 Tobacco smoking status Never smoked tobacco (finding) [facility] Tobacco smoking status Never [facility] Start: 1990 Sex Assigned At Female [facility] Tobacco smoking status [facility] Tobacco smoking consumption unknown [facility] [employer] [facility] Start: 1990 Sex Assigned At Not on file [facility] Goals Date Patient Goal Desired Activity /State Functional Status Date Assessment Result Facility 01-23-2023 Functional Status N/A [facility] 05-19-2022 Functional Status N/A [facility] Clinical Notes 04-10-2022 to 07-07-2023 Note [...] All other systems reviewed and are negative. [facility] 07-07-2023 Note Cardiovascular Medic [facility] SUBJECTIVE Chief Complaint Patient presents with Edema [...] had a tilt table study done at [facility]. this that was a negative study based [...] frequency Urinary urgency (more content not included)... [facility] 03-20-2023 Evaluation note Encounter Date Diagnosis Assessment Notes Mar, Paroxysmal SVT (supraventricul ar tachycardia) (ICD-10 - I47.10) Discussed f/u w cardiology Mar, Daytime somnolence (ICD-10 - R40.0) HST order faxed to [facility] sleep lab. Mar, Morbid (severe) obesity due to excess calories (ICD-10 - E66.01) as above Mar, Body mass index [BMI] 40.0-44.9, adult (ICD-10 - Z68.41) as above Mar, Fatigue, unspecified type (ICD-10 - R53.83) as above [employer] Other [id number] NotePatient here for follow up tilt table test per Elana Ramirez CNP. Review of Systems Cardiovascular: Positive for palpitations. Neurological: Positive for dizziness, headaches and light-headedness. All other systems reviewed and are negative.[facility] 03-03-2023 NoteUT Electrophysiology Consult Note [...] had a tilt table study done at [facility]. this that was a negative study based [...] tablet 3 No curre (more content not included)...[facility] 02-27-2023 History of Present illness Narrative* May Crandall RN - 02/27/2023 2:30 PM EST Instructed on objectives and procedure of a tilt study documented in this encounterBON IVORY [id number] Hospital Discharge instructions Patient Education 01/23/2023 09:39:05 Urinary Tract Infection, Adult, Cmoh-rg-Dreo Urinary Tract Infection, Adult A urinary tract [...] Follow these instructions at home: Medicines Take ouuh-hxt-kebkcpa and prescription medicines only as told by [...] provider. Document Revised: 10/12/2020 Document Reviewed: 10/12/2020 [employer] Patient Education 2022 [employer]. Follow Up Care 07/18/2022 12:23:23 With:MIKY SAMPSON, Clark Roldan, URL Address: [facility] [address] , [place] [address]- [phone] When: Unknown Comments:1 yr w/ REYNA [facility] 10-27-2023 NoteUT Electrophysiology Consult Note Reason [...] no cyanosis, no pa (more content not included)...[facility]-27-2023 NotePatient here for 4 mo [...] light-headedness. All other systems reviewed and are negative.[facility] 12-14-2022 History general Narrative - Reported* Type Description Date Medical History tachycardia Medical History anxiety Medical History sjogren syndrome Surgical History tonsillectomy and adenoidectomy Surgical History Hysterectomy 12/2022 Surgical History Loop monitor 08/2022 [employer] Other 06-28-2023 NoteUT Electrophysiology Consult Note Reason [...] Lungs Respiratory Effort: unlabored (more content not included)...[facility]06-28-2023 NoteReview of Systems Cardiovascular: Positive for palpitations. Neurological: Positive for dizziness, headaches and light-headedness.[facility]06-16-2023 NotePatient seen for wound check s/p loop device placement on 08/21/2022. Wound is clean, dry, intact, and well approximated. Discussed wound care including avoiding, rubbing, lotions, direct shower head pressure, caution with seat belt and bra straps, as well as avoiding other irritants. We will schedule appointment for evaluation of ongoing lightheadedness and dizziness.[facility]06-08-2023 NoteLOOP IMPLANT PROCEDURE NOTE DATE OF PROCEDURE: 08/21/22 PERFORMING PHYSICIAN: Dr. Og Barone CRUDE TESTER: JESS INDICATIONS FOR PROCEDURE: 1. SVT/AF surveillance [...] the sternum on the left using the [employer] tool. The loop recorder was then injected [...] wet the incision. Og Barone MD Cardiac Electrophysiology.[facility]05-03-2023 Note0 points Class I Risk 3.9 % 30-day risk of , ID, or cardiac arrest METS greater than 6 Echo 12/2021 no regional wall motion abnormality, normal LV function and size. Patient can proceed with urological procedure. She is a low risk patient going into a low risk-intermediate procedure. [facility]05-02-2023 NoteUT Electrophysiology Consult Note Reason [...] Inspection: no joint swell (more content not included)...[facility]03-06-2023 Hospital Discharge instructions Patient Education [...] include: ?Spinach. ?Rhubarb. ?Beets. ?Potato chips and pashto fries. ?Nuts. If you regularly take a diuretic medicine, make sure to eat at least 1 2 fruits or vegetables high in potassium each day. These include: ?Avocado. ?Banana. ?[place], prune, carrot, or tomato juice. ?Baked potato. [...] Casseroles. Pizza. Lasagna. Frozen meals. Potato chips. Romansh fries. Summary You can reduce your risk [...] 06/27/2011 Document Revised: 06/22/2019 Document Reviewed: 02/10/2017 [employer] Patient Education 2020 DreamLines. Follow Up Care 05/16/2022 10:14:36 With:MIKY SAMPSON, Clark Roldan, URL Address: [facility] [address], [place] [address]- When: Unknown [facility] 03-03-2023 Evaluation note* Encounter Date Diagnosis Assessment Notes Treatment Notes Treatment Clinical Notes May, Thyroid disease (ICD-10 - E07.9) [facility] [employer] Other 02-24-2023 Evaluation note* Encounter Date Diagnosis Assessment Notes Treatment Notes Treatment Clinical Notes Apr, Dysuria (ICD-10 - R30.0) [facility] [employer] Other 01-26-2023 Evaluation note* Encounter Date Diagnosis [...] Acute non-recurrent maxillary sinusitis (ICD-10 - J01.00) [facility] Other Evaluation + Plan note No data available for this section [facility] note Future Appointments Appointment Date:01/29/2024 08:30:00 AM Scheduled Provider:Clark CLEMENS MD Location:[facility] Appointment Type:URO Office Visit [facility] evaluation + Plan note Future Appointments Appointment Date:01/29/2024 08:30:00 AM Scheduled Provider:Clark CLEMENS MD Location:[facility] Appointment Type:URO Office Visit Diagnostic Tests Pending * Urine Culture 08/07/23 [facility]No [facility] [employer] Other Evaluation noteNo assessment information available [facility] Work Phone: Evaluation note* Diagnosis Postural dizziness with near syncope documented in this encounter [facility] note* Diagnosis Onset Date Resolution Status Abnormal weight gain acute Fatigue acute HTN (hypertension) acute [facility] Work Phone: Hismsjr general Narrative - Reported* Type Description Date Medical History tachycardia Medical History anxiety Medical History sjogren syndrome Surgical History tonsillectomy and adenoidectomy [employer] Other Hospital Discharge instructions No data available for this section [facility] [place] note No data available for this section [facility] Summary Purpose Family History No Family History [...] Procedures Tilt table Elana Ramirez APRN - [facility] [employer] [address] [facility] [address] [place] [address] Referral ID Status Reason Start Date Expiration Date Visits Re quested Visits Authorized [id number] Closed 02/16/2023 02/16/2024 1 1 Additional Source Comments INFORMATION SOURCE (unrecogn ized section and content) DATE CREATED AUTHOR 03/29/2019 [facility] DATE CREATED AUTHOR AUTHOR'S ORGANIZ ATION 07/24/2022 [facility] DATE CREATED AUTHOR AUTHOR'S ORGANIZ ATION 01/29/2023 [facility] DATE CREATED AUTHOR AUTHOR'S ORGANIZ ATION 03/02/2023 [facility] DATE CREATED AUTHOR AUTHOR'S ORGANIZ ATION 07/08/2023 [facility] DATE CREATED AUTHOR AUTHOR'S ORGANIZ ATION 07/28/2023 [place] DATE CREATED AUTHOR AUTHOR'S ORGANIZ ATION 08/09/2023 [facility] DATE CREATED AUTHOR AUTHOR'S ORGANIZ ATION 08/10/2023 [facility] DATE CREATED AUTHOR AUTHOR'S ORGANIZ ATION 08/12/2023 [facility] REASON FOR VISIT (unrecogniz ed section and content) Specialty Diagnoses / Procedures Referred By Benny murillo Referred To Contact Diagnoses Postural dizziness with near syncope Procedures Tilt table Elana Ramirez APRN - [facility]AR [address] [facility] [address] [place] [address] Referral ID Status Reason Start Date Expiration Date Visits Re quested Visits Authorized [id number] Closed 02/16/2023 02/16/2024 1 1 Patient Care [...] Active Enrique Lucas MD Attending Provider Active Manager Country Relationship Specialty Start Date End Date David Newberry MD [address] [place] [address] PCP - General Family Medicine 02/27/23 Team [...] BE BASED ON THE PRIMARY CLINICAL RECORDS. [facility] [employer] [facility]. provides no warranty or guarantee of the accuracy or completeness of information in this document.
--- NOTE | 2023-08-13 07:36 | US_ITS ---
The [address] [address] Patient Name: MORGAN KIRKLAND MRN: [id number] date: 1990 Sex: F Assigned Patient Location: Current Patient Location: [place] Accession/Order Number: [id number] Exam Date: 08/13/2023 07:40 Report Date: 08/13/2023 08:58 At the request of: CLARK BOLAÑOS Procedure: US renal BI EXAMINATION: US renal BI HISTORY: Kidney Stone N20.0 COMPARISON: No relevant comparison available. TECHNIQUE: Ultrasound examination was performed of the bladder. FINDINGS: Right Kidney: Normal in size, contour and echotexture. No solid cortical mass, hydronephrosis or obstructing nephrolithiasis Height: 5.2 cm Length: 9.4 cm Width: 5.2 cm Left Kidney: Normal in size, contour and echotexture. No solid cortical mass, hydronephrosis or obstructing nephrolithiasis Height: 5.6 cm Length: 10.8 cm Width: 5.9 cm The urinary bladder is normal in appearance. Prevoid volume 678 mL. Post void imaging was not performed US/US renal BI IMPRESSION: No abnormality identified Electronically authenticated by: LITA SIMPSON Date: 08/13/2023 08:58
== END 2023-08-13 07:34 | disposition home or self-care (01) ==
LOC: US 07:33
PROVIDERS: PCP Family Medicine; Visit Provider Urology
DX: N20.0 Calculus of kidney (principal)
CPT/HCPCS: 76775

== ENCOUNTER 2024-01-22 16:49 | Outpatient (OUT) | payer OTHER, SELFPAY ==
--- NOTE | 2024-01-22 16:52 | XR_ITS ---
[address] [address] Patient Name: MORGAN KIRKLAND MRN: [id number] date: 1990 Sex: F Assigned Patient Location: [facility] Current Patient Location: [facility] Accession/Order Number: [id number] Exam Date: 01/22/2024 16:53 Report Date: 01/26/2024 07:32 At the request of: CLARK BOLAÑOS Procedure: XR abdomen 1V EXAMINATION: XR abdomen 1V HISTORY: History of Kidney Stones Z87.442 COMPARISON: 08/08/2023 FINDINGS: KIDNEY/URETER - RIGHT: No visible renal or ureteral calcifications. KIDNEY/URETER - LEFT: No visible renal or ureteral calcifications. PELVIS: No visible ureteral calcifications. Any visible calcifications favor phleboliths. BOWEL: No abnormal dilation or deviation. BONES: No acute abnormality. OTHER: Negative. No abnormal gaseous collections. XR/XR abdomen 1V IMPRESSION: No urinary tract calculi observed Electronically authenticated by: LITA SIMPSON Date: 01/26/2024 07:32
--- OUTSIDE RECORDS SUMMARY | 2024-01-22 16:55 | XMS_ITS | CCD ---
Author Organization [facility] Care Team Providers Care Signal Worker Helper Name Role Phone David Newberry Unavailable DAVID [...] Provider MD David Newberry Primary Care Provider [phone] DO Dasha Garcia Attending Provider [phone] MD Enrique Lucas Attending Provider [phone] Enrique Lucas Admitting Unavailable Enrique Lucas Attending Unavailable David Newberry Primary Care Unavailable Rinamador, Dasha Admitting Unavailable Dasha Garcia Attending Unavailable David Newberry Primary Care Unavailable Jose, Dasha Attending Unavailable Jose, Dasha Admitting Unavailable David Newberry Primary Care Unavailable David Newberry MD Primary Care Provider [phone] DAVID NEWBERRY Primary Care Unavailable ELANA RAMIREZ Referring Unavailable DASHA GARCIA Attending Unavailable YOEL BENTLEY Attending Unavailable YOUNG SNOW Attending Unavailable DASHA GARCIA Attending Unavailable CRISTIAN MISTRY Referring Unavailable DOUG, GEENA Referring Unavailable DOUG, GEENA Referring Unavailable DOUG, GEENA Referring Unavailable GERSON SOTO Attending Unavailable CRISTIAN MISTRY Attending Unavailable ELANA RAMIREZ Attending Unavailable DOUG, GEENA Referring Unavailable DOUG, GEENA Referring Unavailable DOUG, GEENA Referring Unavailable DOUG, GEENA Referring Unavailable DOUG, GEENA Referring Unavailable CLEMENS, Clark R Attending Unavailable CLEMENS, Clark R Attending Unavailable CLEMENS, Clark R Admitting Unavailable CLEMENS, Clark R Attending Unavailable CLEMENS, Clark R Admitting Unavailable CLEMENS, Clark R Attending Unavailable CLEMENS, Clark R Attending Unavailable CLEMENS, Clark R Attending Unavailable Allergies Allergy Classification Reported Allergen(s) Allergy Type Date of Onset Reaction(s) Facility (19 sources) Penicillin; Translations: [penicillin] Drug Allergy 03-26-19 21 rash, Weal (disorder) [facility] [place] (2 sources) Allergies Reconciled Propensity to adverse reactions Unknown [employer] Other (2 sources) Substance with penicillin structure and antibacterial mechanism of action (substance) Drug allergy 01-20-20 13 Unknown [employer] Other (2 sources) patient allergy list reviewed by nurse or physicia Propensity to adverse reactions 09-08-19 14 Comment:Done [employer] Other (8 sources) Penicillins; Translations: [Penicillins] Allergy to substance 12-16-19 23 [facility] (8 sources) Povidone-Iodine; Translations: [povidone iodine topical] Drug Allergy 03-03-20 23 Eruption of skin (disorder) [facility] (5 sources) Iodine Drug Allergy 09-04-19 24 [facility] Medications Current Medications Medication Drug Class(es) [...] Active metoprolol tartrate 75 mg oral tablet (20 sources) beta-Adrenergic Caden Start: 12-15-2022 Metoprolol Tartrate 75 mg oral tablet Refills(s) 0 Start Date: 01/23/23 Status: Ordered Start: 05-19-2022 Lopressor 25 m g oral tablet Refills(s) 0 Start Date: 05/19/22 Status: Ordered take 1 tablet by meg twice daily Metoprolol Tartrate 50 MG 1 tab Orally Twice a day for 30 day(s) Active Semaglutide (Weight Loss) (1 source) Start: 12-04-2023 Semaglutide (Weight Loss) (Wegovy) 0.25 mg/0.5 mL pen injector Active 0.25 MG SUBCUT every week December 04, 2023 12:00am Administer weeks 1 through 4 of therapy sulfamethoxazole 800 mg / trimethoprim 160 mg [...] mg docusate sodium 100 mg oral capsule (15 sources) Start: 12-29-2022 End: 07-24-2023 take 1 [...] 2022 2:43pm ibuprofen 600 mg oral tablet (15 sources) Nonsteroidal Anti-inflammatory Drug Start: 12-29-2022 End: [...] nitroGLYCERIN (NITROSTAT) SL tablet 0.3 mg Vit 79-Jrij-Nllzf-Dha ( + Dha) mg iron- 975 mcg-200 mg Combo Pack (8 sources) Start: 04-21-2019 End: 12-15-2022 take 1 tablet by mouth once daily Vit 85-Skze-Hhhte-Dha ( + Dha) 28 mg iron- 975 mcg-200 mg Combo Pack Discontinued 1 TAB PO Daily April 21, 2019 12:00am December 15, 2022 1:43pm Start: 04-21-2019 End: 12-15-2022 take 1 tablet by mouth once daily Vit 08-Htnc-Ddhps-Dha ( + Dha) 28 mg iron- 975 mcg-200 mg Combo Pack Discontinued 1 TAB PO Daily April 21, 2019 1:00am December 15, 2022 2:43pm traMADol hydrochloride 50 mg oral tablet (7 sources) Opioid Agonist Start: 12-29-2022 End: 07-24-2023 take 50 mg by mouth every six hours Tramadol Discontinued 50 MG PO Q6H 30 7 December 29, 2022 12:00am July 24, 2023 8:35am Problems Active Problems Problem Classification Problem Date Documented Date Episodic/Chronic Abdominal pain (20 sources) Abdominal pain; Translations: [Unspecified abdominal pain] Onset: 09-22-2013 Episodic Acute bronchitis (8 sources) Acute bronchitis; Translations: [Acute bronchitis, unspecified] Onset: 09-12-2015 11-10-2019 Episodic Allergic reactions (18 sources) Contact dermatitis; Translations: [Eczema] Onset: 06-18-2017 11-10-2019 Episodic Anxiety disorders (8 sources) Anxiety; Translations: [Anxiety disorder] Onset: 09-07-2013 11-10-2019 Chronic Attention-deficit, conduct, and disruptive behavior disorders (5 sources) Attention deficit hyperactivity disorder; Translations: [Attention-deficit hyperactivity disorder, unspecified type] 09-02-2023 Chronic Bacterial infection; unspecified site (7 sources) Methicillin resistant Staphylococcus aureus infection; Translations: [...] or chronic] Episodic Coagulation and hemorrhagic disorders (8 sources) Spontaneous ecchymosis; Translations: [Spontaneous ecchymoses] Onset: 11-30-2013 11-10-2019 Episodic Coma; stupor; and brain damage (7 sources) Daytime somnolence; Translations: [Somnolence] Episodic Endometriosis (7 sources) Uterine adenomyosis; Translations: [Adenomyosis of uterus] 12-29-2022 Chronic Esophageal disorders (9 sources) Gastroesophageal reflux disease; Translations: [Gastro-esophageal reflux disease without esophagitis] Onset: 11-01-2013 11-10-2019 Chronic Essential hypertension (20 sources) Hypertensive disorder; Translations: [Essential (primary) hypertension] Onset: 07-18-2016 11-10-2019 Chronic Genitourinary symptoms and ill-defined conditions (20 sources) Urgent desire to urinate; Translations: [Urgency of urination] Onset: 05-19-2022 Episodic Influenza (2 sources) Upper respiratory tract infection due to Influenza; Translations: [Influenza due to unidentified influenza virus with other respiratory manifestations] Episodic Malaise and fatigue (18 sources) Other fatigue; Translations: [Fatigue] Episodic Menstrual disorders (8 sources) Menorrhagia; Translations: [Excessive and frequent menstruation with regular cycle] Onset: 12-29-2022 12-29-2022 Chronic Mood disorders (12 sources) Depressive disorder; Translations: [Depression] 09-04-2023 Chronic Other circulatory disease (2 sources) Elevated blood-pressure reading without diagnosis of hypertension; Translations: [Elevated blood-pressure reading, without diagnosis of hypertension] Episodic Other connective tissue disease (6 sources) Bursitis 11-10-2019 Episodic Other connective tissue disease (8 sources) Fibromyalgia; Translations: [Fibromyalgia] Onset: 02-13-2015 11-10-2019 Episodic Other connective tissue disease (1 source) Fibromyalgia; Translations: [FIBROMYALGIA] Onset: 07-24-2022 Episodic Other female genital disorders (8 sources) History of past delivery; Translations: [Status post vaginal delivery] 06-07-2019 Episodic Other lower respiratory disease (5 sources) Snoring; Translations: [Snoring] 09-02-2023 Episodic Other nutritional; endocrine; and metabolic disorders (6 sources) Body mass index 30+ - obesity 11-09-2020 Chronic Other nutritional; endocrine; and metabolic disorders (6 sources) Obese class II; Translations: [Body mass index (BMI) 37.0-37.9, adult] Chronic Other nutritional; endocrine; and metabolic disorders (2 sources) Obese class I; Translations: [Body mass index 34.0-34.9, adult] Onset: 02-09-2017 Chronic Other nutritional; endocrine; and metabolic disorders (6 sources) Body mass index 40+ - severely obese; Translations: [Body mass index (BMI) 40.0-44.9, adult] 09-04-2023 Chronic Other nutritional; endocrine; and metabolic disorders (1 source) Severe obesity; Translations: [Morbid (severe) obesity due to excess calories] Chronic Other nutritional; endocrine; and metabolic disorders (8 sources) Morbid (severe) obesity due to excess calories; Translations: [Morbid obesity] Chronic Other nutritional; endocrine; and metabolic disorders (1 source) Body mass index (BMI) 40.0-44.9, adult Chronic Other nutritional; endocrine; and metabolic disorders (6 sources) Abnormal weight gain; Translations: [Abnormal weight gain] 07-24-2023 Episodic Other nutritional; endocrine; and metabolic disorders (11 sources) Abnormal weight gain; Translations: [Abnormal weight gain] 07-24-2023 Episodic Other skin disorders (2 sources) Hypertrophic condition of skin; Translations: [Other hypertrophic disorders of the skin] Episodic Other skin disorders (2 sources) Folliculitis; Translations: [Follicular disorder, unspecified] Episodic Other upper respiratory infections (7 sources) Acute maxillary sinusitis, unspecified; Translations: [Acute pharyngitis] Onset: 02-09-2017 Episodic Otitis media and related conditions (8 sources) Otitis media; Translations: [Acute secretory otitis media] Onset: 06-03-2017 11-10-2019 Episodic Residual codes; unclassified (5 sources) Obstructive sleep apnea syndrome; Translations: [Obstructive sleep apnea (adult) (pediatric)] 09-02-2023 Chronic Residual codes; unclassified (7 sources) Obstructive sleep apnea (adult) (pediatric); Translations: [Obstructive sleep apnea (adult)(pediatric)] 09-04-2023 Chronic Residual codes; unclassified (1 source) Acquired absence of both cervix and uterus; Translations: [Acquired absence of both cervix and uterus] Onset: 12-29-2022 Episodic Residual codes; unclassified (3 sources) Edema of lower extremity; Translations: [Localized edema] 09-29-2023 Episodic Residual codes; unclassified (3 sources) Localized edema; Translations: [Edema] 09-28-2023 Episodic Skin and subcutaneous tissue infections (10 sources) Cellulitis caused by Staphylococcus aureus; Translations: [Abscess of right lower limb] 11-17-2020 Episodic Spondylosis; intervertebral disc disorders; other back problems (16 sources) Backache; Translations: [Dorsalgia, unspecified] Onset: 09-07-2013 11-10-2019 Episodic Syncope (11 sources) Syncope; Translations: [Syncope and collapse] Onset: 09-22-2013 11-10-2019 Episodic Systemic lupus erythematosus and connective tissue disorders (9 sources) Sjogren's syndrome; Translations: [Sicca syndrome, unspecified] [...] laboratory examination] Onset: 12-15-2022 Urinary tract infections (11 sources) Urinary tract infectious disease; Translations: [Urinary tract infection, site not specified] Onset: 05-19-2022 Episodic Viral infection (10 sources) Verruca vulgaris; Translations: [Viral wart, unspecified] [...] Test Name Value Interpretation Reference Range Facility HbA1c HPLC (Bld) [Mass fract ion]on 09-04-2023 HbA1c (Bld) [Mass fraction] 5.0 % [facility] RAD - Ultrasound Reporton RAD - Ultrasound Report [id number] Normal [facility] RAD - MISCon 08-12-2023 RAD - MISC [id number] Normal [facility] RAD - MISC [id number] Normal [facility] C Urineon 08-09-2023 Bacteria identified Cx Nom (U) Microbiology PROCEDURE: Urine Culture [R1] SOURCE: U CleanCatch BODY SITE: COLLECTED DATE/TIME: 08/07/2023 14:07 EDT RECEIVED DATE/TIME: 08/07/2023 17:42 EDT START DATE/TIME: 08/07/2023 17:42 EDT FREE TEXT SOURCE: MIKY SAMPSON, Clark CLEMENS MD, Clark Roldan FINAL REPORTS Final Report [] Verified Date/Time: [...] Locations R1: This test was performed at: [facility], [address] [place] [address], [address] , [place], [facility] Comment on above: Performed By: #### [id number] #### [facility] [address] [place] [id number] Bacteria identified Cx Nom (U) Microbiology PROCEDURE: Urine Culture [R1] SOURCE: U CleanCatch BODY SITE: COLLECTED DATE/TIME: 08/07/2023 14:07 EDT RECEIVED DATE/TIME: 08/07/2023 17:42 EDT START DATE/TIME: 08/07/2023 17:42 EDT FREE TEXT SOURCE: MIKY SAMPSON, Clark CLEMENS MD, Clark Roldan FINAL REPORTS Final Report [] Verified Date/Time: [...] Locations R1: This test was performed at: [facility], [address] [place] [address], [address] , , [facility] Comment on above: Performed By: #### [id number] #### [facility] [address] [place] [id number] Basophils Auto (Bld) [#/Vol] on 08-01-2023 Basophils (Bld) [#/Vol] 0.0 10 3/uL 0.0-0.1 [facility] Basophils/100 WBC Auto (Bld) on 08-01-2023 Basophils/100 WBC (Bld) 0.6 % 0.2-2.0 [facility] Eosinophils/100 WBC Auto (Bl d)on 08-01-2023 Eosinophils/100 WBC (Bld) 1.6 % 0.9-7.0 [facility] Erythrocyte distribution wid th Auto (RBC) [Ratio]on 08-01-2023 Erythrocyte distribution width (RBC) [Ratio] 12.1 % 11.0-15.0 [facility] Estimated glomerular filtrat ion rate (GFR) non- Americanon 08-01-2023 GFR/1.73 sq M.predicted among non-blacks MDRD (S/P/Bld) [Vol rate/Area] mL/min/{1.73_m2} >=60 [facility] Hematocrit Auto (Bld) [Volum e fraction]on 08-01-2023 Hematocrit (Bld) [Volume fraction] 38.8 % 36.0-48.0 [facility] Hemoglobin [Mass/volume] in Bloodon 08-01-2023 Hemoglobin (Bld) [Mass/Vol] 13.1 g/dL 12.0-16.0 [facility] Laboratory - Chemistry and C hemistry - challengeon 08-01-2023 Calcium [Mass/Vol] 9.2 mg/dL 8.5-10.1 [facility] Chloride [Moles/Vol] 103 mmol/L 98-107 [facility] CO2 [Moles/Vol] 25.5 mmol/L 21.0-32.0 [facility] Creatinine [Mass/Vol] 0.78 mg/dL 0.55-1.02 [facility] Free T4 [Mass/Vol] 0.95 ng/dL 0.76-1.46 [facility] GFR/1.73 sq M.predicted MDRD (S/P/Bld) [Vol rate/Area] mL/min/{1.73_m2} >=60 [facility] Glucose [Mass/Vol] 100 mg/dL 74-106 [facility] Potassium [Moles/Vol] 3.9 mmol/L 3.5-5.1 [facility] Sodium [Moles/Vol] 137 mmol/L 136-145 [facility] TSH Qn 1.067 m[IU]/L 0.358-3.74 0 [facility] Urea nitrogen [Mass/Vol] 12.0 mg/dL 7.0-18.0 [facility] Urea nitrogen/Creatinine [Mass ratio] 15.4 mg/mg [facility] Laboratory - Hematology and Cell countson 08-01-2023 Immature granulocytes/100 WBC (Bld) 0.3 % 0.0-0.5 [facility] Leukocytes [#/volume] correc dave for nucleated erythrocytes in Blood by Automated counon 08-01-2023 WBC corrected for nucl RBC Auto (Bld) [#/Vol] 7.0 10 3/uL 4.0-11.0 [facility] Lymphocytes Auto (Bld) [#/Vo l]on 08-01-2023 Lymphocytes (Bld) [#/Vol] 2.4 10 3/uL 1.2-3.8 [facility] Lymphocytes/100 WBC Auto (Bl d)on 08-01-2023 Lymphocytes/100 WBC (Bld) 34.4 % 20.5-60.0 [facility] MCH Auto (RBC) [Entitic mass ]on 08-01-2023 MCH (RBC) [Entitic mass] 29.6 pg 26.7-34.0 [facility] MCHC Auto (RBC) [Mass/Vol]on 08-01-2023 MCHC (RBC) [Mass/Vol] 33.8 g/dL 29.9-35.2 [facility] MCV Auto (RBC) [Entitic vol] on 08-01-2023 MCV (RBC) [Entitic vol] 87.8 fL 81.0-99.0 [facility] Monocytes Auto (Bld) [#/Vol] on 08-01-2023 Monocytes (Bld) [#/Vol] 0.5 10 3/uL 0.3-0.8 [facility] Monocytes/100 WBC Auto (Bld) on 08-01-2023 Monocytes/100 WBC (Bld) 7.4 % 1.7-12.0 [facility] Neutrophils Auto (Bld) [#/Vo l]on 08-01-2023 Neutrophils (Bld) [#/Vol] 3.9 10 3/uL 1.4-6.5 [facility] Neutrophils/100 WBC Auto (Bl d)on 08-01-2023 Neutrophils/100 WBC (Bld) 55.7 % 43.0-75.0 [facility] No Panel Informationon 07-31 Eosinophils # (Auto) 0.1 10 3/uL 0.0-0.7 [facility] Immature Granulocyte # (Auto) 0.02 10 3/uL 0.00-0.03 [facility] Platelet mean volume Auto (B ld) [Entitic vol]on 08-01-2023 Platelet mean volume (Bld) [Entitic vol] 9.7 fL 9.5-13.5 [facility] Platelets Auto (Bld) [#/Vol] on 08-01-2023 Platelets (Bld) [#/Vol] 231 10 3/uL 150-450 [facility] RBC Auto (Bld) [#/Vol]on RBC (Bld) [#/Vol] 4.42 10 6/uL 4.20-5.[address] [facility] Serum or plasma anion gap de terminationon 08-01-2023 Anion gap [Moles/Vol] 12.4 mmol/L [facility] Office Visiton 07-07-2023 Follow-up visit [id number] Ada Kirkland 1990 Date Provider Department Center 07/07/2023 GERSON ELIZABETH RADHA Nair Family History Problem Relation Age of Onset Heart attack Father 44 Coronary artery disease Father Clotting disorder Father Family Status - Relation Status Age at Father Alive Level of Service:91292 [place] OFFICE/OUTPATIENT ESTABLISHED LOW MDM 20 MIN Reason for Visit and Comments: Edema [[id number]] Palpitations [999852] Normal [facility] Office Visiton 03-03-2023 Follow-up visit [id number] Ada Kirkland 1990 Provider Department Center 03/03/2023 CRISTIAN ERVIN RADHA Nair Family History Problem Relation Age of Onset Heart attack Father 44 Coronary artery disease Father Clotting disorder Father Family Status - Relation Status Age at Father Alive Level of Service:10387 RI OFFICE/OUTPATIENT ESTABLISHED MOD MDM 30 MIN Normal [facility] Tilt tableOrdered By: Nadiya bonner on 02-27-2023 BP (Initial Tilt) 125/97 mmHg [employer] Work Phone: BP (Max BP) 139/92 mmHg [employer] Work Phone: BP (Max Heart Rate) 83/41 mmHg BON S ECOURS [employer] Work Phone: BP (Min BP) 83/41 mmHg [employer] Work Phone: BP (Min Heart Rate) 111/82 mmHg [employer] [employer] Work Phone: BP (Supine) 131/52 bpm [employer] Work Phone: Heart rate 72 /min bpm [employer] Work Phone: Heart rate 112 /min bpm [employer] Work Phone: Minutes (Max BP) 22 [place]ON [place] KALI [employer] Work Phone: Minutes (Max Heart Rate) 23 BON [employer] Work Phone: Minutes (Min BP) 23 BON SEC[address] URS [employer] Work Phone: Minutes (Min Heart Rate) 6 MIGUEL DODSON [employer] Work Phone: Rhythm (Initial Tilt) SR [employer]IG[employer] Phone: Rhythm (Max BP) ST MIGUEL SEC[place] [employer] Phone: Rhythm (Max Heart Rate) ST MIGUEL [employer] Work Phone: Rhythm (Min BP) ST MIG[facility] [employer] Phone: Rhythm (Min Heart Rate) SR [employer] Phone: Rhythm (Supine) SR MIGUEL SECHARLEEN RS [employer] Phone: [employer] Phone: Tilt tableon 02-27-2023 Tilt Study Conclusio [...] with their primary care physician and/ or trash man as previously scheduled. [facility] CV CPACS Radiology Study observation (narrative) [employer] Vital signsOrdered By: Nadiya douglass on 02-27-2023 Heart rate 78 /min bpm [employer] Work Phone: Heart rate 122 /min bpm [employer] Work Phone: Ambulatory Visit Summaryon 1 03-25-2022 Ambulatory Visit Summary MORGAN KIRKLAND :1990 Visit Date:01/23/2023 Ambulatory Visit Instructions Your Diagnosis History of kidney stones Recurrent UTI Tests Performed Urnls Dip Stick Auto w/o Microscopy POC 83763 XR Abdomen 1 View -- Results Pending [...] Clark CLEMENS MD Where: [facility] Lab Reportson 01-23-2023 Lab Reports [id number] [facility] Patient Educationon 01-24-20 Patient Education Obstetrics and [...] these instructions at home: Medicines ? Take rrtj-psz-kfdmsuj and prescription medicines only as told by [...] provider. Document Revised: 10/12/2020 Document Reviewed: 10/12/2020 [employer] Patient Education ? 2022 [employer]. Normal [facility]-23-2023 [facility] [id number] Normal [facility] Urology Office/Clinic Noteon 01-23-2023 Urology Office/Clinic [...] [facility] [address], [place] [address] [phone] Additional Instructions: 1 yr w/ KUB Patient Education Urinary Tract Infection, Adult, Riar-vw-Lirg IAntionette, personally scribed for Dr. Clemens on 01/23/2023 [...] (01/23/23 09:04:00) (more content not included)... Normal [facility] Comment on above: Result Comment: Elec tronically Signed By: MIKY SAMPSON, Clark Rowe\Date and Time Signed: 01/23/23 09:41 EST\.br\Electronically Co-Signed By: Antionette Huizar\.br\Date and Time Co-Signed: 01/23/23 09:39 EST Physician Orderon 01-21-2023 Physician Order [id number] Normal [facility] Automated erythrocytes count in urine sediment (number/area)Ordered By: Enrique Lucas on 01-20-2023 RBC Auto (Urine sed) [#/Area] 10-19 [HPF] 0-4 [facility] Automated leukocytes count i n urine sediment (number/area)Ordered By: Enrique Lucas on 01-20-2023 WBC Auto (Urine sed) [#/Area] 5-9 [HPF] 0-4 [facility] Basophils Auto (Bld) [#/Vol] Ordered By: Enrique Lucas on 01-20-2023 Basophils (Bld) [#/Vol] 0.1 10*3/uL 0.0-0.2 [facility] Basophils/100 WBC Auto (Bld) Ordered By: Enrique Lucas on 01-20-2023 Basophils/100 WBC (Bld) 0.7 % . [facility] Bilirubin Test strip Ql (U)O rdered By: Enrique Lucas on 01-20-2023 Bilirubin Ql (U) Negative Negative [facility] C reactive protein [Mass/vol ume] in Serum or PlasmaOrdered By: Enrique Lucas on 01-20-2023 CRP [Mass/Vol] 0.5 mg/dL 0.0-0.5 [facility] C-Reactive Proteinon 023 C-Reactive Protein 0.5 mg/dL Normal 0.0-0.5 [facility] Comment on above: Result Comment: PERF ORMED BY: [facility] [address] [place] [address] PATHOLOGIST ER RN OLIMPIA MORA M.D. Performed By: #### B MP #### [facility] [address] Color Auto (U)Ordered By: Marybeth Lucas on 01-20-2023 Color (U) Yellow Yellow [facility] Complement C3on 01-20-2023 Complement C3 182 mg/dL High 82-167 [facility] Comment on above: Result Comment: Perf ormed at: [facility] [id number] [employer] Officer: Chris Urban PhD, Phone: [phone] Performed By: #### B MP #### [address] Complement C4on 01-20-2023 Complement C4 29 mg/dL Normal 12-38 [facility] Comment on above: Result Comment: PERF ORMED BY: [place] [address] PATHOLOGIST ER RN OLIMPIA MORA M.D. Performed By: #### B MP #### [address] Complete Blood Count Auto Di ffon 01-20-2023 Basophils (Bld) [#/Vol] 0.1 10*3/uL Normal 0.0-0.2 [facility] Comment on above: Performed By: #### B MP #### [place] [address] [place] Basophils/100 WBC (Bld) 0.7 % Normal . [facility] Comment on above: Performed By: #### B MP #### [place] [address] [place] Eosinophils (Bld) [#/Vol] 0.2 10*3/uL Normal 0.0-0.45 [facility] Comment on above: Performed By: #### B MP #### [place] [address] [place] Eosinophils/100 WBC (Bld) 3.0 % Normal . [facility] Comment on above: Performed By: #### B MP #### [address] Erythrocyte distribution width (RBC) [Ratio] 13.0 % Normal 11.9-15.3 [facility] Comment on above: Performed By: #### B MP #### [facility] [address] Hematocrit (Bld) [Volume fraction] 41.5 % Normal 34.0-46.4 [facility] Comment on above: Performed By: #### B MP #### [facility] [address] Hemoglobin (Bld) [Mass/Vol] 14.0 g/dL Normal 11.8-15.4 [facility] Comment on above: Performed By: #### B MP #### [address] Lymphocytes (Bld) [#/Vol] 2.6 10*3/uL Normal 1.00-4.8 [facility] Comment on above: Performed By: #### B MP #### [address] Lymphocytes/100 WBC (Bld) 35.4 % Normal . [facility] Comment on above: Performed By: #### B MP #### [address] MCH (RBC) [Entitic mass] 30.2 pg Normal 24.7-34.3 [facility] Comment on above: Performed By: #### B MP #### [address] MCV (RBC) [Entitic vol] 89.4 fL Normal 80-100 [facility] Comment on above: Performed By: #### B MP #### [address] Mean Corpuscular HGB Conc 33.7 g/dL Normal 32.0-35.0 [facility] Comment on above: Performed By: #### B MP #### [address] Monocytes (Bld) [#/Vol] 0.4 10*3/uL Normal 0.0-0.8 [facility] Comment on above: Performed By: #### B MP #### [address] Monocytes/100 WBC (Bld) 5.3 % Normal . [facility] Comment on above: Performed By: #### B MP #### [facility] [address] Neutrophils (Bld) [#/Vol] 4.1 10*3/uL Normal 1.8-7.7 [facility] Comment on above: Performed By: #### B MP #### [facility] [address] Neutrophils/100 WBC (Bld) 55.6 % Normal . [facility] Comment on above: Performed By: #### B MP #### [facility] [address] NRBC% 0.1 /100{WBC} Normal 0-0.5 [facility] Comment on above: Performed By: #### B MP #### [address] Platelet mean volume (Bld) [Entitic vol] 8.5 fL Normal 6.3-10.7 [facility] Comment on above: Performed By: #### B MP #### [place] [address] [place] Platelets (Bld) [#/Vol] 253 10*3/uL Normal 150-450 [facility] Comment on above: Performed By: #### B MP #### [address] RBC (Bld) [#/Vol] 4.65 10*6/uL Normal 3.60-5.[address] [facility] Comment on above: Performed By: #### B MP #### [facility] [address] [place] [address] [place] WBC (Bld) [#/Vol] 7.4 10*3/uL Normal 3.8-11.6 [facility] Comment on above: Performed By: #### B MP #### [address] Creatinineon 01-20-2023 Creatinine [Mass/Vol] 0.70 mg/dL Normal 0.60-1.20 [facility] Comment on above: Performed By: #### C 4, C3 #### [facility] , #### ADDONUAPLUS, CBC, CRP, CUU, CREAT, ESR #### [facility] [address] [place] [address] [place] GFR/1.73 sq M.predicted MDRD (S/P/Bld) [Vol rate/Area] mL/min/{1.73_m2} Normal [facility] Comment on above: Performed By: #### C 4, C3 #### [facility] , #### ADDONUAPLUS, CBC, CRP, CUU, CREAT, ESR #### [facility] [address] [place] [address] [place] Creatinine [Mass/volume] in Serum or PlasmaOrdered By: Enrique Lucas on 01-20-2023 Creatinine [Mass/Vol] 0.70 mg/dL 0.60-1.20 [facility] Dipstick and Microscopicon 1 03-22-2022 Appearance (U) Clear Normal Clear [facility] Comment on above: Order Comment: Name Collection Type:: Clean-Voided Midstream Performed By: #### C 4, C3 #### [facility] , #### ADDONUAPLUS, CBC, CRP, CUU, CREAT, ESR #### [facility] [address] [place] [address] [place] Bacteria,Urine 1+ High None Seen [facility] Comment on above: Order Comment: Name Collection Type:: Clean-Voided Midstream Performed By: #### C 4, C3 #### [facility] , #### ADDONUAPLUS, CBC, CRP, CUU, CREAT, ESR #### [facility] [address] [place] [address] [place] Bilirubin,Urine Negative Normal Negative [facility] Comment on above: Order Comment: Name Collection Type:: Clean-Voided Midstream Performed By: #### C 4, C3 #### [facility] , #### ADDONUAPLUS, CBC, CRP, CUU, CREAT, ESR #### [address] Color (U) Yellow Normal Yellow [facility] Comment on above: Order Comment: Name Collection Type:: Clean-Voided Midstream Performed By: #### C 4, C3 #### [facility] , #### ADDONUAPLUS, CBC, CRP, CUU, CREAT, ESR #### [address] Glucose Ql (U) Normal Normal Normal [facility] Comment on above: Order Comment: Name Collection Type:: Clean-Voided Midstream Performed By: #### C 4, C3 #### [facility] , #### ADDONUAPLUS, CBC, CRP, CUU, CREAT, ESR #### [address] Hyaline Casts,Urine None Seen Normal 0-[address] [facility] Comment on above: Order Comment: Name Collection Type:: Clean-Voided Midstream Result Comment: PERF ORMED BY: [place] [id number] PATHOLOGIST ER RN OLIMPIA MORA M.D. Performed By: #### C 4, C3 #### [facility] , #### ADDONUAPLUS, CBC, CRP, CUU, CREAT, ESR #### [address] Ketones Ql (U) Negative Normal Negative [facility] Comment on above: Order Comment: Name Collection Type:: Clean-Voided Midstream Performed By: #### C 4, C3 #### [facility] , #### ADDONUAPLUS, CBC, CRP, CUU, CREAT, ESR #### [address] Leukocyte esterase Test strip Ql (U) 2+ High Negative [facility] Comment on above: Order Comment: Name Collection Type:: Clean-Voided Midstream Performed By: #### C 4, C3 #### [facility] , #### ADDONUAPLUS, CBC, CRP, CUU, CREAT, ESR #### [facility] [address] [place] [address] Nitrite,Urine Negative Normal Negative [facility] Comment on above: Order Comment: Name Collection Type:: Clean-Voided Midstream Performed By: #### C 4, C3 #### [facility] , #### ADDONUAPLUS, CBC, CRP, CUU, CREAT, ESR #### [facility] [address] [place] [address] Occult Blood,Urine Trace High Negative [facility] Comment on above: Order Comment: Name Collection Type:: Clean-Voided Midstream Performed By: #### C 4, C3 #### [facility] , #### ADDONUAPLUS, CBC, CRP, CUU, CREAT, ESR #### [facility] [address] [place] [address] pH (U) 6.0 [pH] Normal 5.0-9.0 [facility] Comment on above: Order Comment: Name Collection Type:: Clean-Voided Midstream Performed By: #### C 4, C3 #### [facility] , #### ADDONUAPLUS, CBC, CRP, CUU, CREAT, ESR #### [facility] [address] [place] [address] Protein,Urine Negative Normal Negative [facility] Comment on above: Order Comment: Name Collection Type:: Clean-Voided Midstream Performed By: #### C 4, C3 #### [facility] , #### ADDONUAPLUS, CBC, CRP, CUU, CREAT, ESR #### [facility] [address] [place] [address] RBC,Urine 10-19 High 0-4 [facility] Comment on above: Order Comment: Name Collection Type:: Clean-Voided Midstream Performed By: #### C 4, C3 #### [facility] , #### ADDONUAPLUS, CBC, CRP, CUU, CREAT, ESR #### [facility] [address] [place] [address] Specificy [place],Urine 1.016 Normal 1.001-1.03 0 [facility] Comment on above: Order Comment: Name Collection Type:: Clean-Voided Midstream Performed By: #### C 4, C3 #### [facility] , #### ADDONUAPLUS, CBC, CRP, CUU, CREAT, ESR #### [address] Squamous Epithelial Cell,Urine 3-4 High 0-2 [facility] Comment on above: Order Comment: Name Collection Type:: Clean-Voided Midstream Performed By: #### C 4, C3 #### [facility] , #### ADDONUAPLUS, CBC, CRP, CUU, CREAT, ESR #### [facility] [address] [place] [address] Urobilinogen,Urine Normal Normal Normal [facility] Comment on above: Order Comment: Name Collection Type:: Clean-Voided Midstream Performed By: #### C 4, C3 #### [facility] , #### ADDONUAPLUS, CBC, CRP, CUU, CREAT, ESR #### [facility] [address] [place] [address] WBC,Urine 5-9 High 0-4 [facility] Comment on above: Order Comment: Name Collection Type:: Clean-Voided Midstream Performed By: #### C 4, C3 #### [facility] , #### ADDONUAPLUS, CBC, CRP, CUU, CREAT, ESR #### [address] Eosinophils Auto (Bld) [#/Vo l]Ordered By: Enrique Lucas on 01-20-2023 Eosinophils (Bld) [#/Vol] 0.2 10*3/uL 0.0-0.45 [facility] Eosinophils/100 WBC Auto (Bl d)Ordered By: Enrique Lucas on 01-20-2023 Eosinophils/100 WBC (Bld) 3.0 % . [facility] Erythrocyte Sedimentation Ra jeniffer 01-20-2023 ESR (Bld) [Velocity] 13 mm/h Normal 0-19 [facility] Comment on above: Result Comment: PERF ORMED BY: [place] [id number] PATHOLOGIST ER RN OLIMPIA MORA M.D. Performed By: #### B MP #### [address] Erythrocyte distribution wid th Auto (RBC) [Ratio]Ordered By: Enrique Lucas on 01-20-2023 Erythrocyte distribution width (RBC) [Ratio] 13.0 % 11.9-15.3 [facility] Erythrocyte sedimentation ra te by Photometric methodOrdered By: Enrique Lucas on 01-20-2023 ESR Photometric method (Bld) [Velocity] 13 mm/hr 0-19 [facility] Hematocrit Auto (Bld) [Volum e fraction]Ordered By: Enrique Lucas on 01-20-2023 Hematocrit (Bld) [Volume fraction] 41.5 % 34.0-46.4 [facility] Hemoglobin [Mass/volume] in BloodOrdered By: Enrique Lucas on 01-20-2023 Hemoglobin (Bld) [Mass/Vol] 14.0 g/dL 11.8-15.4 [facility] Ketones Auto test strip (U) [Mass/Vol]Ordered By: Enrique Lucas on 01-20-2023 Ketones (U) [Mass/Vol] Negative Negative Fi [facility] - UrinalysisOrder ed By: Enrique Lucas on 01-20-2023 Hyaline casts LM Ql (Urine sed) None seen [LPF] 0-8 [facility] Leukocytes [#/volume] correc dave for nucleated erythrocytes in Blood by Automated counOrdered By: Enrique Lucas on 01-20-2023 WBC corrected for nucl RBC Auto (Bld) [#/Vol] 7.4 10*3/uL 3.8-11.6 [facility] Lymphocytes Auto (Bld) [#/Vo l]Ordered By: Enrique Lucas on 01-20-2023 Lymphocytes (Bld) [#/Vol] 2.6 10*3/uL 1.00-4.8 [facility] Lymphocytes/100 WBC Auto (Bl d)Ordered By: Enrique Lucas on 01-20-2023 Lymphocytes/100 WBC (Bld) 35.4 % . [facility] MCH Auto (RBC) [Entitic mass ]Ordered By: Enrique Lucas on 01-20-2023 MCH (RBC) [Entitic mass] 30.2 pg 24.7-34.3 [facility] MCHC Auto (RBC) [Mass/Vol]Or dered By: Enrique Lucas on 01-20-2023 MCHC (RBC) [Mass/Vol] 33.7 g/dL 32.0-35.0 [facility] MCV Auto (RBC) [Entitic vol] Ordered By: Enrique Lucas on 01-20-2023 MCV (RBC) [Entitic vol] 89.4 fL 80-100 [facility] Monocytes Auto (Bld) [#/Vol] Ordered By: Enrique Lucas on 01-20-2023 Monocytes (Bld) [#/Vol] 0.4 10*3/uL 0.0-0.8 [facility] Monocytes/100 WBC Auto (Bld) Ordered By: Enrique Lucas on 01-20-2023 Monocytes/100 WBC (Bld) 5.3 % . [facility] Neutrophils Auto (Bld) [#/Vo l]Ordered By: Enrique Lucas on 01-20-2023 Neutrophils (Bld) [#/Vol] 4.1 10*3/uL 1.8-7.7 [facility] Neutrophils/100 WBC Auto (Bl d)Ordered By: Enrique Lucas on 01-20-2023 Neutrophils/100 WBC (Bld) 55.6 % . [facility] Nitrite Test strip Ql (U)Ord ered By: Enrique Lucas on 01-20-2023 Nitrite Ql (U) Negative Negative [facility] No Panel InformationOrdered By: Enrique Lucas on 01-20-2023 Estimated GFR (CKD-EPI) > 60.0 mL/Min [facility] Creatinine Clearance (Chem N/A [facility] Nucleated erythrocytes [Pres ence] in Blood by Automated countOrdered By: Enrique Lucas on 01-20-2023 Nucleated RBC Auto Ql (Bld) 0.1 /100{WBC} 0-0.5 [facility] Platelet mean volume Auto (B ld) [Entitic vol]Ordered By: Enrique Lucas on 01-20-2023 Platelet mean volume (Bld) [Entitic vol] 8.5 fL 6.3-10.7 [facility] Platelets Auto (Bld) [#/Vol] Ordered By: Enrique Lucas on 01-20-2023 Platelets (Bld) [#/Vol] 253 10*3/uL 150-450 [facility] Protein Auto test strip (U) [Mass/Vol]Ordered By: Enrique Lucas on 01-20-2023 Protein (U) [Mass/Vol] Negative Negative [facility] RBC Auto (Bld) [#/Vol]Ordere d By: Enrique Lucas on 01-20-2023 RBC (Bld) [#/Vol] 4.65 10*6/uL 3.60-5.[address] [facility] Specific gravity Auto test s trip (U) [Rel density]Ordered By: Enrique Lucas on 01-20-2023 Specific gravity (U) [Rel density] 1.016 1.001-1.03 0 [facility] Squamous epithelial cells de tection in urine sediment by light microscopyOrdered By: Enrique Lucas on 01-20-2023 Epithelial cells.squamous LM Ql (Urine sed) 3-4 [HPF] 0-2 [facility] Urine Cultureon 01-20-2023 Bacteria identified Cx Nom (U) 20,000 colonies/ml mixed bacterial skin contaminants 2 Days PERFORMED BY: [place] [id number] [place] [address] PATHOLOGIST ER RN OLIMPIA MORA M.D. Normal [facility] Comment on above: Performed By: #### B MP #### [address] Urine bacteria detection by automated methodOrdered By: Enrique Lucas on 01-20-2023 Bacteria Auto Ql (U) 1+ None Seen [facility] Urine clarity by refractomet ry automatedOrdered By: Enrique Lucas on 01-20-2023 Clarity Refractometry automated (U) Clear Clear [facility] Urine glucose measurement by automated test strip (mass/volume)Ordered By: Enrique Lucas on 01-20-2023 Glucose Auto test strip (U) [Mass/Vol] Normal mg/dL Normal [facility] Urine hemoglobin detection b y automated test stripOrdered By: Enrique Lucas on 01-20-2023 Hemoglobin Auto test strip Ql (U) Trace Negative [facility] Urine leukocyte esterase det ection by automated test stripOrdered By: Enrique Lucas on 01-20-2023 Leukocyte esterase Auto test strip Ql (U) 2+ Negative [facility] Urobilinogen Auto test strip (U) [Mass/Vol]Ordered By: Enrique Lucas on 01-20-2023 Urobilinogen (U) [Mass/Vol] Normal mg/dL Normal [facility] WBC Auto (Bld) [#/Vol]Ordere d By: Enrique Lucas on 01-20-2023 WBC (Bld) [#/Vol] 7.4 10*3/uL 3.8-11.6 [facility] pH Auto test strip (U)Ordere d By: Enrique Lucas on 01-20-2023 pH (U) 6.0 [pH] 5.0-9.0 [facility] Office Visiton 01-09-2023 Follow-up visit [id number] Ada Kirkland 1990 F Date Provider Department Center 01/09/2023 ELANA MORALES CARD [facility] Family History Problem Relation Age of Onset Heart attack Father 44 Coronary artery disease Father Clotting disorder Father Family Status - Relation Status Age at Father Alive Level of Service:28737 [place] OFFICE/OUTPATIENT ESTABLISHED MOD MDM 30-39 MIN Normal [facility] HCG ( test) Best alanis Ql (U)Ordered By: LITA BLACKMAN on 12-29-2022 HCG ( test) Ql (U) Negative [facility] HCG,Urineon 12-29-2022 Beta HCG ( test) Ql (U) Negative Normal [facility] Comment on above: Result Comment: PERF ORMED BY: [facility] [address] [place] [address] PATHOLOGIST ER RN OLIMPIA MORA M.D. Performed By: #### U HCG #### [facility] [address] 12-29-2022 L ------ Specimen: [id number] Received: 12/29/22 Status: FADIA Espinosa Num: [id number] Spec Type: Surgical Subm Dr: Dasha Garcia DO Tissues: A Uterus w/ or w/o tubes ovaries except neoplastic or prolap (CERVIX, DARIO TU Procedures: , Gross/Micro L5 Age/ Patient Sex Location Account Attending Physician Morgan Kirkland 32/F [place] [id number] Dasha Garcia, SPEC NUM: [id number] RECD: 12/29/22 STATUS: FADIA ESPINOSA NUM: [id number] STEVAN: 12/29/[address]: Dasha Garcia DO ENTERED: 12/29/[address]: SANJIV TYPE: Surgical DEPT: S ORDERED: HE/12, Gross/Micro L5 ORDERED: HE/, Gross/Micro L5 Pathological Diagnosis Uterus, cervix, bilateral [...] left sided pelvic pain menorrhagia adenomyosis Specimen: [id number] Received: 12/29/22 Status: FADIA Espinosa Num: [id number] Spec Type: Surgical Subm Dr: Dasha Garcia DO Tissues: A Uterus w/ or w/o tubes ovaries except neoplastic or prolap (CERVIX, DARIO TU Procedures: , Gross/Micro L5 Patient: Morgan Kirkland [id number] (Continued) Specimen: [id number] Received: 12/29/22 (Continued) Signed (signature on file) Daniel Okeefe MD 12/30/222016 Specimen: [id number] Received: 12/29/22 Status: FADIA Espinosa Num: [id number] Spec Type: Surgical Subm Dr: Dasha Garcia DO Tissues: A Uterus w/ or w/o tubes ovaries except neoplastic or prolap (CERVIX, DARIO TU Procedures: , Gross/Micro L5 Patient: Morgan Kirkland [id number] (Continued) Specimen: [id number] Received: 12/29/22 (Continued) Gross Description Received in [...] has a pinpoint lumen on cut section. Self Propelled Dredge Operator sections are submitted in 8 cassettes as follows: A1 - Anterior cervix A2 - Posterior cervix A3-A4 - Anterior endomyometrium A5-A6 - Posterior endomyometrium A7 - Right fallopian tube A8 - Left fallopian tube Microscopic Description Eight H E slides reviewed. The microscopic examination confirms the diagnosis. CPT Codes 74008 Specimen: [id number] Received: 12/29/22 Status: FADIA Espinosa Num: [id number] Spec Type: Surgical Subm Dr: Dasha Garcia, DO Tissues: A Uterus w/ or w/o tubes ovaries except neoplastic or prolap (CERVIX, DARIO TU Procedures: HE/12, Gross/Micro L (more content not included)... Normal [facility] Activated partial thrombopla stin time (aPTT) in platelet poor plasma by coagulation aOrdered By: Dasha Garcia on 12-15-2022 aPTT Coag (PPP) [Time] 28.2 s 25.1-36.5 [facility] Comment on above: A hematocrit value g reater than 55% may lead to inaccurate results in coagulation testing. Patients having hematocrit values >55% require a special collection tube for coagulation studies. Please contact the laboratory at [phone] for redraw instructions. Basic Metabolic Panelon 10-0 Anion gap [Moles/Vol] 8.5 mmol/L Normal 6.0-15.0 [facility] Comment on above: Performed By: #### B MP #### [facility] [address] Calcium [Mass/Vol] 9.4 mg/dL Normal 8.6-10.3 [facility] Comment on above: Result Comment: PERF ORMED BY: [facility] [address] [facility] [place] [address] PATHOLOGIST ER RN OLIMPIA MORA M.D. Performed By: #### B MP #### [facility] [address] [place] [address] [place] Chloride [Moles/Vol] 105 mmol/L Normal 98-107 [facility] Comment on above: Performed By: #### B MP #### [facility] [address] [place] [address] [place] CO2 [Moles/Vol] 28.6 mmol/L Normal 21.0-31.0 [facility] Comment on above: Performed By: #### B MP #### [facility] [address] Creatinine [Mass/Vol] 0.86 mg/dL Normal 0.60-1.20 [facility] Comment on above: Performed By: #### B MP #### [facility] [address] [place] [address] [place] GFR/1.73 sq M.predicted MDRD (S/P/Bld) [Vol rate/Area] mL/min/{1.73_m2} Normal [facility] Comment on above: Performed By: #### B MP #### [facility] [address] Glucose [Mass/Vol] 90 mg/dL Normal 70-100 [facility] Comment on above: Result Comment: [place] Glucose Reference Range is dependent on time and content of last meal. Glucose of more than 200 mg/dL in a nonstressed, ambulatory subject supports the diagnosis of Diabetes Mellitus. ADA recommended reference range Performed By: #### B MP #### [facility] [address] [place] [address] [place] Potassium [Moles/Vol] 4.1 mmol/L Normal 3.5-5.1 [facility] Comment on above: Performed By: #### B MP #### [facility] [address] [place] [address] [place] Sodium [Moles/Vol] 138 mmol/L Normal 136-145 [facility] Comment on above: Performed By: #### B MP #### [facility] [address] Urea nitrogen [Mass/Vol] 9 mg/dL Normal 7-25 [facility] Comment on above: Performed By: #### B MP #### [facility] [address] Basophils Auto (Bld) [#/Vol] Ordered By: Dasha Garcia on 12-15-2022 Basophils (Bld) [#/Vol] 0.0 10*3/uL 0.0-0.2 [facility] Basophils/100 WBC Auto (Bld) Ordered By: Dasha Garcia on 12-15-2022 Basophils/100 WBC (Bld) 0.6 % . [facility] Calcium [Mass/volume] in Ser um or PlasmaOrdered By: Dasha Garcia on 12-15-2022 Calcium [Mass/Vol] 9.4 mg/dL 8.6-10.3 [facility] Carbon dioxide, total [Moles /volume] in Serum or PlasmaOrdered By: Dasha Garcia on 12-15-2022 CO2 [Moles/Vol] 28.6 mmol/L 21.0-31.0 [facility] Chloride [Moles/volume] in S misael or PlasmaOrdered By: Dasha Garcia on 12-15-2022 Chloride [Moles/Vol] 105 mmol/L 98-107 [facility] Complete Blood Count Auto Di ffon 12-15-2022 Basophils (Bld) [#/Vol] 0.0 10*3/uL Normal 0.0-0.2 [facility] Comment on above: Result Comment: PERF ORMED BY: [place] [id number] PATHOLOGIST ER RN OLIMPIA MORA M.D. Performed By: #### C BC #### [address] Basophils/100 WBC (Bld) 0.6 % Normal . [facility] Comment on above: Performed By: #### C BC #### [place] [address] [place] Eosinophils (Bld) [#/Vol] 0.2 10*3/uL Normal 0.0-0.45 [facility] Comment on above: Performed By: #### C BC #### [address] Eosinophils/100 WBC (Bld) 1.9 % Normal . [facility] Comment on above: Performed By: #### C BC #### [address] Erythrocyte distribution width (RBC) [Ratio] 13.0 % Normal 11.9-15.3 [facility] Comment on above: Performed By: #### C BC #### [address] Hematocrit (Bld) [Volume fraction] 40.0 % Normal 34.0-46.4 [facility] Comment on above: Performed By: #### C BC #### [address] Hemoglobin (Bld) [Mass/Vol] 13.6 g/dL Normal 11.8-15.4 [facility] Comment on above: Performed By: #### C BC #### [address] Lymphocytes (Bld) [#/Vol] 2.3 10*3/uL Normal 1.00-4.8 [facility] Comment on above: Performed By: #### C BC #### [address] Lymphocytes/100 WBC (Bld) 28.8 % Normal . [facility] Comment on above: Performed By: #### C BC #### [address] MCH (RBC) [Entitic mass] 30.0 pg Normal 24.7-34.3 [facility] Comment on above: Performed By: #### C BC #### [address] MCV (RBC) [Entitic vol] 88.1 fL Normal 80-100 [facility] Comment on above: Performed By: #### C BC #### [facility] [address] Mean Corpuscular HGB Conc 34.0 g/dL Normal 32.0-35.0 [facility] Comment on above: Performed By: #### C BC #### [facility] [address] [place] [address] [place] Monocytes (Bld) [#/Vol] 0.4 10*3/uL Normal 0.0-0.8 [facility] Comment on above: Performed By: #### C BC #### [facility] [address] Monocytes/100 WBC (Bld) 5.1 % Normal . [facility] Comment on above: Performed By: #### C BC #### [address] Neutrophils (Bld) [#/Vol] 5.2 10*3/uL Normal 1.8-7.7 [facility] Comment on above: Performed By: #### C BC #### [place] [address] [place] Neutrophils/100 WBC (Bld) 63.6 % Normal . [facility] Comment on above: Performed By: #### C BC #### [place] [address] [place] NRBC% 0.1 /100{WBC} Normal 0-0.5 [facility] Comment on above: Performed By: #### C BC #### [place] [address] [place] Platelet mean volume (Bld) [Entitic vol] 8.2 fL Normal 6.3-10.7 [facility] Comment on above: Performed By: #### C BC #### [place] [address] [place] Platelets (Bld) [#/Vol] 235 10*3/uL Normal 150-450 [facility] Comment on above: Performed By: #### C BC #### [address] [place] [address] [place] RBC (Bld) [#/Vol] 4.53 10*6/uL Normal 3.60-5.[address] [facility] Comment on above: Performed By: #### C BC #### [facility] [address] [place] [id number] [place] WBC (Bld) [#/Vol] 8.1 10*3/uL Normal 3.8-11.6 [facility] Comment on above: Performed By: #### C BC #### [facility] [address] Creatinine [Mass/volume] in Serum or PlasmaOrdered By: Dasha Garcia on 12-15-2022 Creatinine [Mass/Vol] 0.86 mg/dL 0.60-1.20 [facility] Eosinophils Auto (Bld) [#/Vo l]Ordered By: Dasha Garcia on 12-15-2022 Eosinophils (Bld) [#/Vol] 0.2 10*3/uL 0.0-0.45 [facility] Eosinophils/100 WBC Auto (Bl d)Ordered By: Dasha Garcia on 12-15-2022 Eosinophils/100 WBC (Bld) 1.9 % . [facility] Erythrocyte distribution wid th Auto (RBC) [Ratio]Ordered By: Dasha Garcia on 12-15-2022 Erythrocyte distribution width (RBC) [Ratio] 13.0 % 11.9-15.3 [facility] Glucose [Mass/volume] in Ser um or PlasmaOrdered By: Dasha Garcia on 12-15-2022 Glucose [Mass/Vol] 90 mg/dL 70-100 [facility] Comment on above: ADA recommended refe rence rangeRandom Glucose Reference Range is dependent on time and content of last meal. Glucose of more than 200 mg/dL in a nonstressed, ambulatory subject supports the diagnosis of Diabetes Mellitus. Hematocrit Auto (Bld) [Volum e fraction]Ordered By: Dasha Garcia on 12-15-2022 Hematocrit (Bld) [Volume fraction] 40.0 % 34.0-46.4 [facility] Hemoglobin [Mass/volume] in BloodOrdered By: Dasha Garcia on 12-15-2022 Hemoglobin (Bld) [Mass/Vol] 13.6 g/dL 11.8-15.4 [facility] INR in Platelet poor plasma by Coagulation assayOrdered By: Dasha Garcia on 12-15-2022 INR Coag (PPP) [Relative time] 0.9 {INR} [facility] Comment on above: INR Therapeutic Rang e [...] RBC Auto (Bld) [#/Vol] 8.1 10*3/uL 3.8-11.6 [facility] Lymphocytes Auto (Bld) [#/Vo l]Ordered By: Dasha Garcia on 12-15-2022 Lymphocytes (Bld) [#/Vol] 2.3 10*3/uL 1.00-4.8 [facility] Lymphocytes/100 WBC Auto (Bl d)Ordered By: Dasha Garcia on 12-15-2022 Lymphocytes/100 WBC (Bld) 28.8 % . [facility] MCH Auto (RBC) [Entitic mass ]Ordered By: Dasha Garcia on 12-15-2022 MCH (RBC) [Entitic mass] 30.0 pg 24.7-34.3 [facility] MCHC Auto (RBC) [Mass/Vol]Or dered By: Dasha Garcia on 12-15-2022 MCHC (RBC) [Mass/Vol] 34.0 g/dL 32.0-35.0 [facility] MCV Auto (RBC) [Entitic vol] Ordered By: Dasha Garcia on 12-15-2022 MCV (RBC) [Entitic vol] 88.1 fL 80-100 [facility] Monocytes Auto (Bld) [#/Vol] Ordered By: Dasha Garcia on 12-15-2022 Monocytes (Bld) [#/Vol] 0.4 10*3/uL 0.0-0.8 [facility] Monocytes/100 WBC Auto (Bld) Ordered By: Dasha Garcia on 12-15-2022 Monocytes/100 WBC (Bld) 5.1 % . [facility] Neutrophils Auto (Bld) [#/Vo l]Ordered By: Dasha Garcia on 12-15-2022 Neutrophils (Bld) [#/Vol] 5.2 10*3/uL 1.8-7.7 [facility] Neutrophils/100 WBC Auto (Bl d)Ordered By: Dasha Garcia on 12-15-2022 Neutrophils/100 WBC (Bld) 63.6 % . [facility] No Panel InformationOrdered By: Dasha Garcia on 12-15-2022 Estimated GFR (CKD-EPI) > 60.0 mL/Min [facility] Creatinine Clearance (Chem N/A [facility] Nucleated erythrocytes [Pres ence] in Blood by Automated countOrdered By: Dasha Garcia on 12-15-2022 Nucleated RBC Auto Ql (Bld) 0.1 /100{WBC} 0-0.5 [facility] PST Type and Screenon 2022 ABO and Rh group Nom (Bld) Blood group A Rh(D) positive Normal [facility] Comment on above: Order Comment: Date of Surgery: 20221229 Partial Thromboplastin Timeo n 12-15-2022 aPTT Coag (Bld) [Time] 28.2 s Normal 25.1-36.5 [facility] Comment on above: Result Comment: A he matocrit value greater than 55% may lead to inaccurate results in coagulation testing. Patients having hematocrit values >55% require a special collection tube for coagulation studies. Please contact the laboratory at [phone] for redraw instructions. PERFORMED BY: [facility] [place] [address] PATHOLOGIST ER RN OLIMPIA MORA M.D. Performed By: #### P T, PTT #### [facility] [address] [place] [address] [facility] Platelet mean volume Auto (B ld) [Entitic vol]Ordered By: Dasha Garcia on 12-15-2022 Platelet mean volume (Bld) [Entitic vol] 8.2 fL 6.3-10.7 [facility] Platelets Auto (Bld) [#/Vol] Ordered By: Dasha Garcia on 12-15-2022 Platelets (Bld) [#/Vol] 235 10*3/uL 150-450 [facility] Potassium [Moles/volume] in Serum or PlasmaOrdered By: Dasha Garcia on 12-15-2022 Potassium [Moles/Vol] 4.1 mmol/L 3.5-5.1 [facility] Prothrombin Time INRon 12-15 INR Coag (PPP) [Relative time] 0.9 {INR} Normal [facility] Comment on above: Result Comment: INR Therapeutic [...] Performed By: #### P T, PTT #### [facility] [address] [place] [address] [facility] PT Coag (PPP) [Time] 11.3 s Normal 9.0-12.9 [facility] Comment on above: Result Comment: A he matocrit value greater than 55% may lead to inaccurate results in coagulation testing. Patients having hematocrit values >55% require a special collection tube for coagulation studies. Please contact the laboratory at [phone] for redraw instructions. Performed By: #### P T, PTT #### [facility] [address] [place] [address] [facility] Prothrombin time (PT)Ordered By: Dasha Garcia on 12-15-2022 PT Coag (PPP) [Time] 11.3 s 9.0-12.9 [facility] Comment on above: A hematocrit value g reater than 55% may lead to inaccurate results in coagulation testing. Patients having hematocrit values >55% require a special collection tube for coagulation studies. Please contact the laboratory at [phone] for redraw instructions. RBC Auto (Bld) [#/Vol]Ordere d By: Dasha Garcia on 12-15-2022 RBC (Bld) [#/Vol] 4.53 10*6/uL 3.60-5.[address] [facility] Serum or plasma anion gap de terminationOrdered By: Dasha Garcia on 12-15-2022 Anion gap [Moles/Vol] 8.5 mmol/L 6.0-15.0 [facility] Sodium [Moles/volume] in Ser um or PlasmaOrdered By: Dasha Garcia on 12-15-2022 Sodium [Moles/Vol] 138 mmol/L 136-145 [facility] Urea nitrogen [Mass/volume] in Serum or PlasmaOrdered By: Dasha Garcia on 12-15-2022 Urea nitrogen [Mass/Vol] 9 mg/dL 7-25 [facility] WBC Auto (Bld) [#/Vol]Ordere d By: Dasha Garcia on 12-15-2022 WBC (Bld) [#/Vol] 8.1 10*3/uL 3.8-11.6 [facility] CALCULI, URINARYon 3 2,8 Dihydroxyadenine Normal [facility] Comment on above: Performed By: #### C ALCULI #### [facility] [address] [address] [address] Lela Okeefe Ammonium Acid Urate Normal [facility] Comment on above: Performed By: #### C ALCULI #### [facility] [address] [address] [address] Lela Okeefe Bilirubin Ql (U) Normal [facility] Comment on above: Performed By: #### C ALCULI #### [facility] [address] [address] [address] Lela Okeefe Ca Oxalate Dihydrate 60 % Normal [facility] Comment on above: Performed By: #### C ALCULI #### [facility] [address] [address] [address] Lela Okeefe CaHPO4 (Brushite) [facility] Comment on above: Performed By: #### C ALCULI #### [facility] [address] [address] [address] Lela Okeefe Calcium Bilirubinate Normal [facility] Comment on above: Performed By: #### C ALCULI #### [facility] [address] [address] [address] Lela Okeefe Calcium Carbonate [facility] Comment on above: Performed By: #### C ALCULI #### [facility] [address] [address] [address] Lela Okeefe Calcium Oxalate Monohydrate 30 % [facility] Comment on above: Performed By: #### C ALCULI #### [facility] [address] [address] [address] eLla Okeefe Calcium Palmitate [facility] Comment on above: Performed By: #### C ALCULI #### [facility] [address] [address] [address] Lela Okeefe Calcium Phosphate [facility] Comment on above: Performed By: #### C ALCULI #### [facility] [address] [address] [address] Lela Okeefe Calcium Stearate [facility] Comment on above: Performed By: #### C ALCULI #### [facility] [address] [address] [address] Lela Okeefe Carbonate Apatite [facility] Comment on above: Performed By: #### C ALCULI #### [facility] [address] [address] [address] Lela Okeefe Cellular Material [facility] Comment on above: Performed By: #### C ALCULI #### [facility] [address] [address] [address] Lela Okeefe Cholesterol [facility] Comment on above: Performed By: #### C ALCULI #### [facility] [address] [address] [address] Lela Okeefe Color (U) Conroy Normal [facility] Comment on above: Performed By: #### C ALCULI #### [facility] [address] [place] [address] Dr. Lela Okeefe Comment Comment Normal [facility] Comment on above: Result Comment: Calc ium phosphate (hydroxyl form) includes hydroxyapatite, amorphous calcium phosphate, and whitlockite. Hydroxyapatite is the most common of the calcium phosphate salts found in human kidney stones. Performed By: #### C ALCULI #### [facility] [address] [place] [address] Dr. Lela Okeefe Result Comment: Calc ulus received wet. Wet calculi must be dried before analysis, which delays reporting of results. Leaving calculi wet (such as water, saline, blood, urine) may lead to changes in composition. Comment: Comment Normal [facility] Comment on above: Result Comment: [facility] regarding Calculi Analysis contact hoccer at: [phone]. Performed By: #### C ALCULI #### [facility] [address] [place] [address] Dr. Lela Okeefe Composition Comment Normal [facility] Comment on above: Result Comment: Perc entage (Represents the % composition) Performed By: #### C ALCULI #### [facility] [address] [place] [address] Dr. Lela Okeefe Cystine Normal [facility] Comment on above: Performed By: #### C ALCULI #### [facility] [address] [place] [address] Dr. Lela Okeefe Disclaimer: Comment Normal [facility] Comment on above: Result Comment: This test was developed and its performance characteristics determined by [employer]. It has not been cleared or approved by the Food and Drug Administration. Performed By: #### C ALCULI #### [facility] [address] [place] [address] Dr. Lela Okeefe Dried Blood Normal [facility] Comment on above: Performed By: #### C ALCULI #### [facility] [address] [place] [address] Dr. Lela Okeefe Drug or Metabolite Normal [facility] Comment on above: Performed By: #### C ALCULI #### [facility] [address] [address] [address] Lela Okeefe Hydroxyapatite 10 % Normal [facility] Comment on above: Performed By: #### C ALCULI #### [facility] [address] [address] [address] Lela Okeefe Mg NH4 PO4 (Struvite) [facility] Comment on above: Performed By: #### C ALCULI #### [facility] [address] [address] [address] Lela Okeefe MgHPO4 (Newberyite) [facility] Comment on above: Performed By: #### C ALCULI #### [facility] [address] [address] [address] Lela Okeefe Other component(s) [facility] Comment on above: Performed By: #### C ALCULI #### [facility] [address] [address] [address] Lela Okeefe PDF . Normal [facility] Comment on above: Performed By: #### C ALCULI #### [facility] [address] [address] [address] Lela Okeefe Photo Comment [facility] Comment on above: Result Comment: Phot ograph will follow under a separate cover Performed By: #### C ALCULI #### [facility] [address] [address] [address] Lela Okeefe Please note: Comment Normal [facility] Comment on above: Result Comment: Calc mirza report will follow via computer, mail or companion delivery. Performed By: #### C ALCULI #### [facility] [address] [address] [address] Lela Okeefe Size 5x5 [facility] Comment on above: Result Comment: Sing le piece received. Performed By: #### C ALCULI #### [facility] [address] [address] [address] Lela Okeefe Sodium Acid Urate [facility] Comment on above: Performed By: #### C ALCULI #### [facility] [address] [address] [address] Lela Okeefe Source Comment Normal [facility] Comment on above: Result Comment: Deacon murillo Ureter Performed By: #### C ALCULI #### [facility] [address] [address] [address] Lela Okeefe Triamterene [facility] Comment on above: Performed By: #### C ALCULI #### [facility] [address] [address] [address] Lela Okeefe Uric Acid [facility] Comment on above: Performed By: #### C ALCULI #### [facility] [address] [place] [address] Dr. Lela Okeefe Uric Acid Dihydrate [facility] Comment on above: Performed By: #### C ALCULI #### [facility] [address] [place] [address] Dr. Lela Okeefe Weight 37 mg [facility] Comment on above: Performed By: #### C ALCULI #### [facility] [address] [place] [address] Dr. Lela Okeefe Xanthine [facility] Comment on above: Performed By: #### C ALCULI #### [facility] [address] [place] [address] Dr. Lela Okeefe PREG HCG QUALon 07-17-2022 , QUAL Negative Normal NEGATIVE [facility] Comment on above: Performed By: #### C BC #### [facility] [address] [place] [address] Dr. Lela Okeefe CBC AUTO DIFFon 07-11-2022 BASO # 0.0 103/ul Normal 0.0-0.1 [facility] Comment on above: Performed By: #### C BC #### [facility] [address] [place] [address] Dr. Lela Okeefe Basophils/100 WBC (Bld) 0.5 % Normal 0.2-2.0 [facility] Comment on above: Performed By: #### C BC #### [facility] [address] [place] [address] Dr. Lela Okeefe EO # 0.1 103/ul Normal 0.0-0.7 [facility] Comment on above: Performed By: #### C BC #### [facility] [address] [place] [address] Dr. Lela Okeefe Eosinophils/100 WBC (Bld) 1.2 % Normal 0.9-7.0 [facility] Comment on above: Performed By: #### C BC #### [facility] [address] [place] [address] Dr. Lela Okeefe Erythrocyte distribution width (RBC) [Ratio] 12.3 % Normal 11.0-15.0 [facility] Comment on above: Performed By: #### C BC #### [facility] [address] [place] [address] Dr. Lela Okeefe Hematocrit (Bld) [Volume fraction] 41.7 % Normal 36.0-48.0 [facility] Comment on above: Performed By: #### C BC #### [facility] [address] [place] [address] Dr. Lela Okeefe Hemoglobin (Bld) [Mass/Vol] 14.1 g/dL Normal 12.0-16.0 [facility] Comment on above: Performed By: #### C BC #### [facility] [address] [place] [address] Dr. Lela Okeefe IG # 0.01 10e3/ul Normal 0.00-0.03 [facility] Comment on above: Performed By: #### C BC #### [facility] [address] [place] [address] Dr. Lela Okeefe IG % 0.2 % Normal 0.0-0.5 [facility] Comment on above: Performed By: #### C BC #### [facility] [address] [place] [address] Dr. Lela Okeefe LYMPH # 2.1 103/ul Normal 1.2-3.8 [facility] Comment on above: Performed By: #### C BC #### [facility] [address] [place] [address] Dr. Lela Okeefe Lymphocytes/100 WBC (Bld) 36.5 % Normal 20.5-60.0 [facility] Comment on above: Performed By: #### C BC #### [facility] [address] [place] [address] Dr. Lela Okeefe MANUAL DIFF REQ NO Normal [facility] Comment on above: Performed By: #### C BC #### [facility] [address] [place] [address] Dr. Lela Okeefe MCH (RBC) [Entitic mass] 30.2 pg Normal 26.7-34.0 [facility] Comment on above: Performed By: #### C BC #### [facility] [address] [place] [address] Dr. Lela Okeefe MCHC (RBC) [Mass/Vol] 33.8 g/dL Normal 29.9-35.2 [facility] Comment on above: Performed By: #### C BC #### [facility] [address] [place] [address] Dr. Lela Okeefe MCV (RBC) [Entitic vol] 89.3 fL Normal 81.0-99.0 [facility] Comment on above: Performed By: #### C BC #### [facility] [address] [place] [address] Dr. Lela Okeefe MONO # 0.5 103/ul Normal 0.3-0.8 [facility] Comment on above: Performed By: #### C BC #### [facility] [address] [place] [address] Dr. Lela Okeefe Monocytes/100 WBC (Bld) 8.4 % Normal 1.7-12.0 [facility] Comment on above: Performed By: #### C BC #### [facility] [address] [place] [address] Dr. Lela Okeefe NEUT # 3.0 103/ul Normal 1.4-6.5 [facility] Comment on above: Performed By: #### C BC #### [facility] [address] [place] [address] Dr. Lela Okeefe Neutrophils/100 WBC (Bld) 53.2 % Normal 43.0-75.0 [facility] Comment on above: Performed By: #### C BC #### [facility] [address] [place] [address] Dr. Lela Okeefe Platelet mean volume (Bld) [Entitic vol] 9.7 fL Normal 9.5-13.5 [facility] Comment on above: Performed By: #### C BC #### [facility] [address] [place] [address] Dr. Lela Okeefe PLT 234 103/ul Normal 150-450 [facility] Comment on above: Performed By: #### C BC #### [facility] [address] [place] [address] Dr. Lela Okeefe RBC 4.67 106/ul Normal 4.20-5.40 [facility] Comment on above: Performed By: #### C BC #### [facility] [address] [place] [address] Dr. Lela Okeefe WBC 5.6 103/ul Normal 4.0-11.0 [facility] Comment on above: Performed By: #### C BC #### [facility] [address] [place] [address] Dr. Lela Okeefe PROF CHEM 8 (BAS METB)on Anion gap [Moles/Vol] 12.5 mmol/L Normal [facility] Comment on above: Performed By: #### C BC #### [facility] [address] [place] [address] Dr. Lela Okeefe Calcium [Mass/Vol] 9.1 mg/dL Normal 8.5-10.1 [facility] Comment on above: Performed By: #### C BC #### [facility] [address] [place] [address] Dr. Lela Okeefe Chloride [Moles/Vol] 105 mmol/L Normal 98-107 [facility] Comment on above: Performed By: #### C BC #### [facility] [address] [place] [address] Dr. Lela Okeefe CO2 [Moles/Vol] 28.7 mmol/L Normal 21.0-32.0 [facility] Comment on above: Performed By: #### C BC #### [facility] [address] [place] [address] Dr. Lela Okeefe Creatinine [Mass/Vol] 0.73 mg/dL Normal 0.55-1.02 [facility] [facility] Comment on above: Performed By: #### C BC #### [facility] [address] [place] [address] Dr. Lela Okeefe EGFR-AF TOGOLESE >60 Normal >=60 [facility] Comment on above: Performed By: #### C BC #### [facility] [address] [place] [address] Dr. Lela Okeefe EGFR-NON AF TOGOLESE >60 Normal >=60 [facility] Comment on above: Performed By: #### C BC #### [facility] [address] [place] [address] Dr. Lela Okeefe Glucose [Mass/Vol] 81 mg/dL Normal 74-106 [facility] Comment on above: Performed By: #### C BC #### [facility] [address] [place] [address] Dr. Lela Okeefe Potassium [Moles/Vol] 4.2 mmol/L Normal 3.5-5.1 [facility] Comment on above: Performed By: #### C BC #### [facility] [address] [place] [address] Dr. Lela Okeefe Sodium [Moles/Vol] 142 mmol/L Normal 136-145 [facility] Comment on above: Performed By: #### C BC #### [facility] [address] [place] [address] Dr. Lela Okeefe Urea nitrogen [Mass/Vol] 11.0 mg/dL Normal 7.0-18.0 [facility] Comment on above: Performed By: #### C BC #### [facility] [address] [place] [address] Dr. Lela Okeefe Urea nitrogen/Creatinine [Mass ratio] 15.1 mg/mg Normal [facility] Comment on above: Performed By: #### C BC #### [facility] [address] [place] [address] Dr. Lela Okeefe PROTIMEon 07-11-2022 INR Coag (PPP) [Relative time] 0.97 {INR} Normal [facility] Comment on above: Performed By: #### C BC #### [facility] [address] [place] [address] Dr. Lela Okeefe INR GUIDELINES SEE BELOW Normal [facility] Comment on above: Result Comment: BAIRON RED INR: 2.0 - 3.0 CONDITIONS NOT LISTED BELOW 2.5 - 3.5 FOR PROSTHETIC HEART VALVE REPLACEMENT 2.5 - 3.5 RECURRENT THROMBOSIS Performed By: #### C BC #### [facility] [address] [place] [address] Dr. Lela Okeefe PT Coag (PPP) [Time] 10.3 s Normal 9.0-11.6 [facility] Comment on above: Performed By: #### C BC #### [facility] [address] [place] [address] Dr. Lela Okeefe PTTon 07-11-2022 aPTT Coag (Bld) [Time] 27.9 s Normal 22.3-36.2 [facility] Comment on above: Performed By: #### C BC #### [facility] [address] [place] [address] ABD/PELVIS WO CONon [...] IRIS FUNEZ Date: 2022-06-02 15:16 Normal [facility] XR KUB 1 VIEWon 05-20-2022 XR KUB [...] ZAHRA MCCLENDON Date: 2022-05-20 14:39 Normal [facility] C3 and C4 COMPLEMENTon 04-15 Complement C3, Serum 191 mg/dL Critically high 82-167 [facility] Comment on above: Performed By: #### C BC #### [facility] [address] [address] [address] Lela Okeefe Complement C4, Serum 38 mg/dL Normal 12-38 [facility] Comment on above: Performed By: #### C BC #### [facility] [address] [id number] Lela Okeefe T3, TOTAL (TRIIODOTHYRONINE) on 04-13-2022 T3, TOTAL 109 ng/dL Normal 71-180 [facility] Comment on above: Performed By: #### C BC #### [facility] [address] [address] [address] Lela Okeefe US THYROIDon 04-13-2022 US [...] ZAHRA MCCLENDON Date: 2022-04-13 20:29 Normal [facility] CBC AUTO DIFFon 04-12-2022 BASO # 0.1 103/ul Normal 0.0-0.1 [facility] Comment on above: Performed By: #### C BC #### [facility] [address] [place] [address] Dr. Lela Okeefe Basophils/100 WBC (Bld) 0.6 % Normal 0.2-2.0 [facility] Comment on above: Performed By: #### C BC #### [facility] [address] [place] [address] Dr. Lela Okeefe EO # 0.0 103/ul Normal 0.0-0.7 [facility] Comment on above: Performed By: #### C BC #### [facility] [address] [place] [address] Dr. Lela Okeefe Eosinophils/100 WBC (Bld) 0.4 % Critically low 0.9-7.0 [facility] Comment on above: Performed By: #### C BC #### [facility] [address] [place] [address] Dr. Lela Okeefe Erythrocyte distribution width (RBC) [Ratio] 11.9 % Normal 11.0-15.0 [facility] Comment on above: Performed By: #### C BC #### [facility] [address] [place] [address] Dr. Lela Okeefe Hematocrit (Bld) [Volume fraction] 41.1 % Normal 36.0-48.0 [facility] Comment on above: Performed By: #### C BC #### [facility] [address] [place] [address] Dr. Lela Okeefe Hemoglobin (Bld) [Mass/Vol] 14.9 g/dL Normal 12.0-16.0 [facility] Comment on above: Performed By: #### C BC #### [facility] [address] [place] [address] Dr. Lela Okeefe IG # 0.03 10e3/ul Normal 0.00-0.03 [facility] Comment on above: Performed By: #### C BC #### [facility] [address] [place] [address] Dr. Lela kOeefe IG % 0.3 % Normal 0.0-0.5 [facility] Comment on above: Performed By: #### C BC #### [facility] [address] [place] [address] Dr. Lela Okeefe LYMPH # 1.1 103/ul Critically low 1.2-3.8 [facility] Comment on above: Performed By: #### C BC #### [facility] [address] [place] [address] Dr. Lela Okeefe Lymphocytes/100 WBC (Bld) 12.6 % Critically low 20.5-60.0 [facility] Comment on above: Performed By: #### C BC #### [facility] [address] [place] [address] Dr. Lela Okeefe MANUAL DIFF REQ NO Normal [facility] Comment on above: Performed By: #### C BC #### [facility] [address] [place] [address] Dr. Lela Okeefe MCH (RBC) [Entitic mass] 29.6 pg Normal 26.7-34.0 [facility] Comment on above: Performed By: #### C BC #### [facility] [address] [place] [address] Dr. Lela Okeefe MCHC (RBC) [Mass/Vol] 36.3 g/dL Critically high 29.9-35.2 [facility] Comment on above: Performed By: #### C BC #### [facility] [address] [address] [address] Lela Okeeef MCV (RBC) [Entitic vol] 81.7 fL Normal 81.0-99.0 [facility] Comment on above: Performed By: #### C BC #### [facility] [address] [address] [address] Lela Okeefe MONO # 0.9 103/ul Critically high 0.3-0.8 [facility] Comment on above: Performed By: #### C BC #### [facility] [address] [address] [address] Lela Okeefe Monocytes/100 WBC (Bld) 10.0 % Normal 1.7-12.0 [facility] Comment on above: Performed By: #### C BC #### [facility] [address] [place] [address] Dr. Lela Okeefe NEUT # 6.8 103/ul Critically high 1.4-6.5 [facility] Comment on above: Performed By: #### C BC #### [facility] [address] [place] [address] Dr. Lela Okeefe Neutrophils/100 WBC (Bld) 76.1 % Critically high 43.0-75.0 [facility] Comment on above: Performed By: #### C BC #### [facility] [address] [address] [address] Lela Okeefe Platelet mean volume (Bld) [Entitic vol] 9.5 fL Normal 9.5-13.5 [facility] Comment on above: Performed By: #### C BC #### [facility] [address] [address] [address] Lela Okeefe PLT 232 103/ul Normal 150-450 [facility] Comment on above: Performed By: #### C BC #### [facility] [address] [address] [address] Lela Okeefe RBC 5.03 106/ul Normal 4.20-5.40 [facility] Comment on above: Performed By: #### C BC #### [facility] [address] [place] [address] Dr. Lela Okeefe WBC 9.0 103/ul Normal 4.0-11.0 [facility] Comment on above: Performed By: #### C BC #### [facility] [address] [place] [address] Dr. Lela Okeefe CPKon 04-12-2022 CK [Catalytic activity/Vol] 43 U/L Normal 26-192 [facility] Comment on above: Performed By: #### C BC #### [facility] [address] [place] [address] Dr. Lela Okeefe CREATININEon 04-12-2022 Creatinine [Mass/Vol] 0.85 mg/dL Normal 0.55-1.02 [facility] Comment on above: Performed By: #### C BC #### [facility] [address] [place] [address] Dr. Lela Okeefe EGFR-AF TOGOLESE >60 Normal >=60 [facility] Comment on above: Performed By: #### C BC #### [facility] [address] [place] [address] Dr. Lela Okeefe EGFR-NON AF TOGOLESE >60 Normal >=60 [facility] Comment on above: Performed By: #### C BC #### [facility] [address] [place] [address] Dr. Lela Okeefe SED RATE WESTERGRENon 2022 SED RATE 53 mm/hr Critically high <=20 [facility] Comment on above: Performed By: #### C BC #### [facility] [address] [place] [address] Dr. Lela Okeefe UA RANDOM W/MICROSCOPICon BACTERIA NONE SEEN Normal NONE SEEN [facility] Comment on above: Performed By: #### U AMIC #### [facility] [address] [place] [address] Dr. Lela Okeefe Bilirubin Ql (U) Negative Normal NEGATIVE [facility] Comment on above: Performed By: #### U AMIC #### [facility] [address] [address] [address] Lela Okeefe CAST NONE SEEN Normal NONE SEEN [facility] Comment on above: Performed By: #### U AMIC #### [facility] [address] [address] [address] Lela Okeefe Clarity (U) CLEAR Normal CLEAR [facility] Comment on above: Performed By: #### U AMIC #### [facility] [address] [place] [address] Dr. Lela Okeefe Color (U) YELLOW Normal YELLOW [facility] Comment on above: Performed By: #### U AMIC #### [facility] [address] [place] [address] Dr. Lela Okeefe Crystals LM Nom (Urine sed) NONE SEEN Normal NONE SEEN [facility] Comment on above: Performed By: #### U AMIC #### [facility] [address] [place] [address] Dr. Lela Okeefe Epithelial cells LM Ql (Urine sed) FEW Abnormal NONE SEEN /RARE [facility] Comment on above: Performed By: #### U AMIC #### [facility] [address] [place] [address] Dr. Lela Okeefe Glucose Ql (U) Negative Normal NEGATIVE [facility] Comment on above: Performed By: #### U AMIC #### [facility] [address] [place] [address] Dr. Lela Okeefe Hemoglobin Ql (U) Negative Normal NEGATIVE [facility] Comment on above: Performed By: #### U AMIC #### [facility] [address] [place] [address] Dr. Lela Okeefe Ketones Ql (U) Negative Normal NEGATIVE [facility] Comment on above: Performed By: #### U AMIC #### [facility] [address] [place] [address] Dr. Lela Okeefe LEUKOCYTES Negative Normal NEGATIVE [facility] Comment on above: Performed By: #### U AMIC #### [facility] [address] [place] [address] Dr. Lela Okeefe MUCOUS TRACE Abnormal NONE SEEN [facility] Comment on above: Performed By: #### U AMIC #### [facility] [address] [place] [address] Dr. Lela Okeefe Nitrite Ql (U) Negative Normal NEGATIVE [facility] Comment on above: Performed By: #### U AMIC #### [facility] [address] [place] [address] Dr. Lela Okeefe pH (U) 6.0 [pH] Normal 5-9 [facility] Comment on above: Performed By: #### U AMIC #### [facility] [address] [place] [address] Dr. Lela Okeefe RBC 0-2 Normal 0-2 [facility] Comment on above: Performed By: #### U AMIC #### [facility] [address] [place] [address] Dr. Lela Okeefe SPEC GRAVITY 1.020 Normal 1.005-<=1. 025 [facility] Comment on above: Performed By: #### U AMIC #### [facility] [address] [place] [address] Dr. Lela Okeefe UA PROTEIN Negative Normal NEGATIVE/ TRACE [facility] Comment on above: Performed By: #### U AMIC #### [facility] [address] [place] [address] Dr. Lela Okeefe Urobilinogen Qn (U) 0.2 {Fidelia'U}/dL Normal 0.2 - 1. 0 [facility] Comment on above: Performed By: #### U AMIC #### [facility] [address] [place] [address] Dr. Lela Okeefe WBC NONE SEEN Normal NONE SEEN [facility] Comment on above: Performed By: #### U AMIC #### [facility] [address] [place] [address] Dr. Lela Okeefe CBC AUTO DIFFon 04-10-2022 BASO # 0.0 103/ul Normal 0.0-0.1 [facility] Comment on above: Performed By: #### C BC #### [facility] [address] [place] [address] Dr. Lela Okeefe Basophils/100 WBC (Bld) 0.3 % Normal 0.2-2.0 [facility] Comment on above: Performed By: #### C BC #### [facility] [address] [place] [address] Dr. Lela Okeefe EO # 0.0 103/ul Normal 0.0-0.7 [facility] Comment on above: Performed By: #### C BC #### [facility] [address] [place] [address] Dr. Lela Okeefe Eosinophils/100 WBC (Bld) 0.1 % Critically low 0.9-7.0 [facility] Comment on above: Performed By: #### C BC #### [facility] [address] [place] [address] Dr. Lela Okeefe Erythrocyte distribution width (RBC) [Ratio] 11.9 % Normal 11.0-15.0 [facility] Comment on above: Performed By: #### C BC #### [facility] [address] [place] [address] Dr. Lela Okeefe Hematocrit (Bld) [Volume fraction] 46.1 % Normal 36.0-48.0 [facility] Comment on above: Performed By: #### C BC #### [facility] [address] [place] [address] Dr. Lela Okeefe Hemoglobin (Bld) [Mass/Vol] 14.5 g/dL Normal 12.0-16.0 [facility] Comment on above: Performed By: #### C BC #### [facility] [address] [place] [address] Dr. Lela Okeefe IG # 0.01 10e3/ul Normal 0.00-0.03 [facility] Comment on above: Performed By: #### C BC #### [facility] [address] [place] [address] Dr. Lela Okeefe IG % 0.1 % Normal 0.0-0.5 [facility] Comment on above: Performed By: #### C BC #### [facility] [address] [place] [address] Dr. Lela Okeefe LYMPH # 1.1 103/ul Critically low 1.2-3.8 [facility] Comment on above: Performed By: #### C BC #### [facility] [address] [place] [address] Dr. Lela Okeefe Lymphocytes/100 WBC (Bld) 11.7 % Critically low 20.5-60.0 [facility] Comment on above: Performed By: #### C BC #### [facility] [address] [place] [address] Dr. Lela Okeefe MANUAL DIFF REQ NO Normal [facility] Comment on above: Performed By: #### C BC #### [facility] [address] [place] [address] Dr. Lela Okeefe MCH (RBC) [Entitic mass] 29.8 pg Normal 26.7-34.0 [facility] Comment on above: Performed By: #### C BC #### [facility] [address] [place] [address] Dr. Lela Okeefe MCHC (RBC) [Mass/Vol] 31.5 g/dL Normal 29.9-35.2 [facility] Comment on above: Performed By: #### C BC #### [facility] [address] [place] [address] Dr. Lela Okeefe MCV (RBC) [Entitic vol] 94.7 fL Normal 81.0-99.0 [facility] Comment on above: Performed By: #### C BC #### [facility] [address] [place] [address] Dr. Lela Okeefe MONO # 0.8 103/ul Normal 0.3-0.8 [facility] Comment on above: Performed By: #### C BC #### [facility] [address] [place] [address] Dr. Lela Okeefe Monocytes/100 WBC (Bld) 7.9 % Normal 1.7-12.0 [facility] Comment on above: Performed By: #### C BC #### [facility] [address] [place] [address] Dr. Lela Okeefe NEUT # 7.7 103/ul Critically high 1.4-6.5 [facility] Comment on above: Performed By: #### C BC #### [facility] [address] [place] [address] Dr. Lela Okeefe Neutrophils/100 WBC (Bld) 79.9 % Critically high 43.0-75.0 [facility] Comment on above: Performed By: #### C BC #### [facility] [address] [place] [address] Dr. Lela Okeefe Platelet mean volume (Bld) [Entitic vol] 10.2 fL Normal 9.5-13.5 [facility] Comment on above: Performed By: #### C BC #### [facility] [address] [place] [address] Dr. Lela Okeefe PLT 230 103/ul Normal 150-450 [facility] Comment on above: Performed By: #### C BC #### [facility] [address] [place] [address] Dr. Lela Okeefe RBC 4.87 106/ul Normal 4.20-5.40 [facility] Comment on above: Performed By: #### C BC #### [facility] [address] [place] [address] Dr. Lela Okeefe WBC 9.6 103/ul Normal 4.0-11.0 [facility] Comment on above: Performed By: #### C BC #### [facility] [address] [place] [address] Dr. Lela Okeefe FREE T3on 04-10-2022 FREE T3 2.59 pg/mlL Normal 2.18-3.98 [facility] Comment on above: Performed By: #### C BC #### [facility] [address] [place] [address] Dr. Lela Okeefe FREE T4on 04-10-2022 Free T4 [Mass/Vol] 1.00 ng/dL Normal 0.76-1.46 [facility] Comment on above: Performed By: #### F T4 #### [facility] [address] [place] [address] Dr. Lela Okeefe PROF CHEM 8 (BAS METB)on Anion gap [Moles/Vol] 12.3 mmol/L Normal [facility] Comment on above: Performed By: #### B PEDRO, TSH #### [facility] [address] [place] [address] Dr. Lela Okeefe Calcium [Mass/Vol] 9.4 mg/dL Normal 8.5-10.1 [facility] Comment on above: Performed By: #### B PEDRO, TSH #### [facility] [address] [place] [address] Dr. Lela Okeefe Chloride [Moles/Vol] 102 mmol/L Normal 98-107 [facility] Comment on above: Performed By: #### B PEDRO, TSH #### [facility] [address] [place] [address] Dr. Lela Okeefe CO2 [Moles/Vol] 28.3 mmol/L Normal 21.0-32.0 [facility] Comment on above: Performed By: #### B PEDRO, TSH #### [facility] [address] [place] [address] Dr. Lela Okeefe Creatinine [Mass/Vol] 0.77 mg/dL Normal 0.55-1.02 [facility] Comment on above: Performed By: #### B PEDRO, TSH #### [facility] [address] [place] [address] Dr. Lela Okeefe EGFR-AF TOGOLESE >60 Normal >=60 [facility] Comment on above: Performed By: #### B PEDRO, TSH #### [facility] [address] [place] [address] Dr. Lela Okeefe EGFR-NON AF TOGOLESE >60 Normal >=60 [facility] Comment on above: Performed By: #### B PEDRO, TSH #### [facility] [address] [place] [address] Dr. Lela Okeefe Glucose [Mass/Vol] 101 mg/dL Normal 74-106 [facility] Comment on above: Performed By: #### B PEDRO, TSH #### [facility] [address] [place] [address] Dr. Lela Okeefe Potassium [Moles/Vol] 4.6 mmol/L Normal 3.5-5.1 [facility] Comment on above: Performed By: #### B MP, TSH #### [facility] [address] [place] [address] Dr. Lela Okeefe Sodium [Moles/Vol] 138 mmol/L Normal 136-145 [facility] Comment on above: Performed By: #### B MP, TSH #### [facility] [address] [place] [address] Dr. Lela Okeefe Urea nitrogen [Mass/Vol] 11.0 mg/dL Normal 7.0-18.0 [facility] Comment on above: Performed By: #### B MP, TSH #### [facility] [address] [place] [address] Dr. Lela Okeefe Urea nitrogen/Creatinine [Mass ratio] 14.3 mg/mg Normal [facility] Comment on above: Performed By: #### B MP, TSH #### [facility] [address] [place] [address] Dr. Lela Okeefe TSHon 04-10-2022 TSH 0.346 uIU/mL Critically low 0.358-3.74 0 [facility] Comment on above: Performed By: #### B MP, TSH #### [facility] [address] [place] [address] Dr. Lela Okeefe ECHOCARDIO M/2D COMPLETEon 1 ECHOCARDIO M/2D COMPLETE Patient: MORGAN KIRKLAND Exam Date: 12/24/2021 : 1990 Gender:F Ordering : ELICaroline ALLEGRA Admission #: [id number] Family : DR DAVID NEWBERRY M.D. Order #: [id number] CLICK HERE TO VIEW EXAM ECHOCARDIOGRAM REPORT [...] M.D. on 12/24/2021 at 15:14 Normal [facility] CBC AUTO DIFFon 11-23-2021 BASO # 0.0 103/ul Normal 0.0-0.1 [facility] Comment on above: Performed By: #### C BC #### [facility] [address] [address] [address] Lela Okeefe Basophils/100 WBC (Bld) 0.4 % Normal 0.2-2.0 [facility] Comment on above: Performed By: #### C BC #### [facility] [address] [place] [address] Dr. Lela Okeefe EO # 0.1 103/ul Normal 0.0-0.7 [facility] Comment on above: Performed By: #### C BC #### [facility] [address] [address] [address] Lela Okeefe Eosinophils/100 WBC (Bld) 1.4 % Normal 0.9-7.0 [facility] Comment on above: Performed By: #### C BC #### [facility] [address] [place] [address] Dr. Lela Okeefe Erythrocyte distribution width (RBC) [Ratio] 12.0 % Normal 11.0-15.0 [facility] Comment on above: Performed By: #### C BC #### [facility] [address] [place] [address] Dr. Lela Okeefe Hematocrit (Bld) [Volume fraction] 43.0 % Normal 36.0-48.0 [facility] Comment on above: Performed By: #### C BC #### [facility] [address] [place] [address] Dr. Lela Okeefe Hemoglobin (Bld) [Mass/Vol] 14.4 g/dL Normal 12.0-16.0 The [facility] Comment on above: Performed By: #### C BC #### [facility] [address] [place] [address] Dr. Lela Okeefe IG # 0.02 10e3/ul Normal 0.00-0.03 [facility] Comment on above: Performed By: #### C BC #### [facility] [address] [place] [address] Dr. Lela Okeefe IG % 0.3 % Normal 0.0-0.5 [facility] Comment on above: Performed By: #### C BC #### [facility] [address] [place] [address] Dr. Lela Okeefe LYMPH # 2.1 103/ul Normal 1.2-3.8 [facility] Comment on above: Performed By: #### C BC #### [facility] [address] [place] [address] Dr. Lela Okeefe Lymphocytes/100 WBC (Bld) 29.2 % Normal 20.5-60.0 [facility] Comment on above: Performed By: #### C BC #### [facility] [address] [place] [address] Dr. Lela Okeefe MANUAL DIFF REQ NO Normal [facility] Comment on above: Performed By: #### C BC #### [facility] [address] [place] [address] Dr. Lela Okeefe MCH (RBC) [Entitic mass] 29.7 pg Normal 26.7-34.0 [facility] Comment on above: Performed By: #### C BC #### [facility] [address] [place] [address] Dr. Lela Okeefe MCHC (RBC) [Mass/Vol] 33.5 g/dL Normal 29.9-35.2 [facility] Comment on above: Performed By: #### C BC #### [facility] [address] [place] [address] Dr. Lela Okeefe MCV (RBC) [Entitic vol] 88.7 fL Normal 81.0-99.0 [facility] Comment on above: Performed By: #### C BC #### [facility] [address] [place] [address] Dr. Lela Okeefe MONO # 0.5 103/ul Normal 0.3-0.8 [facility] Comment on above: Performed By: #### C BC #### [facility] [address] [place] [address] Dr. Lela Okeefe Monocytes/100 WBC (Bld) 6.9 % Normal 1.7-12.0 [facility] Comment on above: Performed By: #### C BC #### [facility] [address] [place] [address] Dr. Lela Okeefe NEUT # 4.4 103/ul Normal 1.4-6.5 [facility] Comment on above: Performed By: #### C BC #### [facility] [address] [place] [address] Dr. Lela Okeefe Neutrophils/100 WBC (Bld) 61.8 % Normal 43.0-75.0 [facility] Comment on above: Performed By: #### C BC #### [facility] [address] [place] [address] Dr. Lela Okeefe Platelet mean volume (Bld) [Entitic vol] 9.3 fL Critically low 9.5-13.5 [facility] Comment on above: Performed By: #### C BC #### [facility] [address] [place] [address] Dr. Lela Okeefe PLT 239 103/ul Normal 150-450 [facility] Comment on above: Performed By: #### C BC #### [facility] [address] [place] [address] Dr. Lela Okeefe RBC 4.85 106/ul Normal 4.20-5.40 [facility] Comment on above: Performed By: #### C BC #### [facility] [address] [place] [address] Dr. Lela Okeefe WBC 7.1 103/ul Normal 4.0-11.0 [facility] Comment on above: Performed By: #### C BC #### [facility] [address] [place] [address] Dr. Lela Okeefe LIPID PROFILEon 11-23-2021 CHOL-HDL RATIO NORM SEE BELOW Normal [facility] Comment on above: Result Comment: 3.3 - 4.4 LOW RISK 4.4 - 7.1 AVERAGE RISK 7.1 - 11.0 MODERATE RISK >11.0 HIGH RISK Performed By: #### C BC #### [facility] [address], [place] [address] Dr. Lela Okeefe Cholesterol [Mass/Vol] 177 mg/dL Normal <=200 [facility] Comment on above: Performed By: #### C BC #### [facility] [address], [place] [address] Dr. Lela Okeefe Cholesterol in HDL [Mass/Vol] 38 mg/dL Critically low 40-60 [facility] Comment on above: Performed By: #### C BC #### [facility] [address] [address] [address] Lela Okeefe Cholesterol in LDL [Mass/Vol] 121.6 mg/dL Normal [facility] Comment on above: Performed By: #### C BC #### [facility] [address] [address] [address] Lela Okeefe Cholesterol.total/Chol esterol in HDL [Mass ratio] 4.7 {ratio} Normal [facility] Comment on above: Performed By: #### C BC #### [facility] [address] [id number] [address] Lela Okeefe HDL NORMAL > or = 60 mg/dl - LO W CARDIOVASCULAR RISK <40 mg/dl - HIGH CARDIOVASCULAR RISK Normal [facility] Comment on above: Performed By: #### C BC #### [facility] [address] [id number] [address] Lela Okeefe LDL CALC NORMAL SEE BELOW Normal [facility] Comment on above: Result Comment: <100 mg/dl OPTIMAL 100 - 129 mg/dl NEAR OR ABOVE OPTIMAL 130 - 159 mg/dl BORDERLINE HIGH 160 - 189 mg/dl HIGH >190 mg/dl VERY HIGH Performed By: #### C BC #### [facility] [address] [place], [place] [address] Dr. Lela Okeefe Triglyceride [Mass/Vol] 87 mg/dL Normal <=150 [facility] Comment on above: Performed By: #### C BC #### [facility] [address] [address] [address] Lela Okeefe VLDL CALC 17.4 mg/dL Normal [facility] Comment on above: Performed By: #### C BC #### [facility] [address] [place] [address] Dr. Lela Okeefe PROF CHEM 8 (BAS METB)on Anion gap [Moles/Vol] 9.2 mmol/L Normal [facility] Comment on above: Performed By: #### B MP, TSH, LIPID #### [facility] [address] [place] [address] Dr. Lela Okeefe Calcium [Mass/Vol] 8.9 mg/dL Normal 8.5-10.1 [facility] Comment on above: Performed By: #### B MP, TSH, LIPID #### [facility] [address] [place] [address] Dr. Lela Okeefe Chloride [Moles/Vol] 105 mmol/L Normal 98-107 [facility] Comment on above: Performed By: #### B MP, TSH, LIPID #### [facility] [address] [place] [address] Dr. Lela Okeefe CO2 [Moles/Vol] 28.8 mmol/L Normal 21.0-32.0 [facility] Comment on above: Performed By: #### B MP, TSH, LIPID #### [facility] [address] [place] [address] Dr. Lela Okeefe Creatinine [Mass/Vol] 0.77 mg/dL Normal 0.55-1.02 [facility] Comment on above: Performed By: #### B MP, TSH, LIPID #### [facility] [address] [place] [address] Dr. Lela Okeefe EGFR-AF TOGOLESE >60 Normal >=60 [facility] Comment on above: Performed By: #### B MP, TSH, LIPID #### [facility] [address] [place] [address] Dr. Lela Okeefe EGFR-NON AF TOGOLESE >60 Normal >=60 [facility] Comment on above: Performed By: #### B MP, TSH, LIPID #### [facility] [address] [address] [address] Lela Okeefe Glucose [Mass/Vol] 103 mg/dL Normal 74-106 [facility] Comment on above: Performed By: #### B MP, TSH, LIPID #### [facility] [address] [place] [address] Dr. Lela Okeefe Potassium [Moles/Vol] 4.0 mmol/L Normal 3.5-5.1 [facility] Comment on above: Performed By: #### B MP, TSH, LIPID #### [facility] [address] [place] [address] Dr. Lela Okeefe Sodium [Moles/Vol] 139 mmol/L Normal 136-145 [facility] Comment on above: Performed By: #### B MP, TSH, LIPID #### [facility] [address] [place] [address] Dr. Lela Okeefe Urea nitrogen [Mass/Vol] 10.0 mg/dL Normal 7.0-18.0 [facility] Comment on above: Performed By: #### B MP, TSH, LIPID #### [facility] [address] [place] [address] Dr. Lela Okeefe Urea nitrogen/Creatinine [Mass ratio] 13.0 mg/mg Normal [facility] Comment on above: Performed By: #### B MP, TSH, LIPID #### [facility] [address] [place] [address] Dr. Lela Okeefe TSHon 11-23-2021 TSH 1.092 uIU/mL Normal 0.358-3.74 0 [facility] Comment on above: Performed By: #### C BC #### [facility] [address] [place] [address] Dr. Lela Okeefe PROGRESSon 03-29-2019 PROGRESS HNO ID: [id number] Author: Jose Olea Service: ? Author Type: Physician Type: Progress Notes Filed: 03/29/2019 10:25 AM Note Text: Patient here for ultrasound. See ultrasound report for details. Jose Olea MD [facility] PROGRESSon 03-15-2019 PROGRESS HNO ID: [id number] Author: Dasha Ibanez Service: ? Author Type: [...] normal. See ultrasound report Dasha Ibanez MD [facility] PROGRESSon 03-01-2019 PROGRESS HNO ID: [id number] Author: Tobias Yang Service: ? Author Type: [...] in the Imaging tab in Epic ? Tobais Yang MD [facility] PROGRESSon 02-16-2019 PROGRESS HNO ID: [id number] Author: Tobias Yang Service: ? Author Type: [...] tab in Epic ? Tobias Yang MD [facility] PROGRESSon 01-31-2019 PROGRESS HNO ID: [id number] Author: Tobias Yang Service: ? Author Type: [...] tab in Epic ? Tobias Yang MD [facility] PROGRESSon 01-18-2019 PROGRESS HNO ID: [id number] Author: Tobias Yang Service: ? Author Type: [...] Imaging tab in Epic Tobias Yang MD Normal [facility] Vital Signs Date Time Vital Sign Value Performing Clinician Facility 12-04-2023 08:52-0400 Body height 172.72 cm [place] 12-04-2023 08:52-0400 Body mass index (BMI) [Ratio] 43.7 kg/m2 [facility] 12-04-2023 08:52-0400 Body weight 130.43 kg [place] 12-04-2023 08:52-0400 Diastolic blood pressure 78 mm[Hg] [facility] 12-04-2023 08:52-0400 Heart rate 70 /min [place] 12-04-2023 08:52-0400 Respiratory rate 18 /min [facility] 12-04-2023 08:52-0400 SaO2% (BldA) [Mass fraction] 97 % [facility] 12-04-2023 08:52-0400 Systolic blood pressure 113 mm[Hg] [facility] 11-27-2023 08:36-0400 Body mass index (BMI) [Ratio] 43.2 kg/m2 [facility] 11-27-2023 07:28-0400 Body height 172.72 cm [place] 11-27-2023 07:28-0400 Body weight 129.72 kg [place] 10-19-2023 15:14-0400 Body height 172.72 cm [place] 10-19-2023 15:14-0400 Body mass index (BMI) [Ratio] 43.4 kg/m2 [facility] 10-19-2023 15:14-0400 Body weight 129.72 kg [place] 10-19-2023 15:14-0400 Diastolic blood pressure 69 mm[Hg] [facility] 10-19-2023 15:14-0400 Heart rate 60 /min [place] 10-19-2023 15:14-0400 Respiratory rate 18 /min [facility] 10-19-2023 15:14-0400 SaO2% (BldA) [Mass fraction] 100 % [facility] 10-19-2023 15:14-0400 Systolic blood pressure 115 mm[Hg] [facility] 09-28-2023 15:34-0400 Body height 172.72 cm [place] 09-28-2023 15:34-0400 Body mass index (BMI) [Ratio] 43.4 kg/m2 [facility] 09-28-2023 15:34-0400 Body weight 129.72 kg [place] 09-28-2023 15:34-0400 Diastolic blood pressure 72 mm[Hg] [facility] 09-28-2023 15:34-0400 Heart rate 83 /min [place] 09-28-2023 15:34-0400 SaO2% (BldA) [Mass fraction] 98 % [facility] 09-28-2023 15:34-0400 Systolic blood pressure 118 mm[Hg] [facility] 09-04-2023 08:03-0400 Body height 172.72 cm [place] 09-04-2023 08:03-0400 Body mass index (BMI) [Ratio] 43.2 kg/m2 [facility] 09-04-2023 08:03-0400 Body weight 128.82 kg [place] 09-04-2023 08:03-0400 Diastolic blood pressure 78 mm[Hg] [facility] 09-04-2023 08:03-0400 Heart rate 61 /min [place] 09-04-2023 08:03-0400 Respiratory rate 16 /min [facility] 09-04-2023 08:03-0400 SaO2% (BldA) [Mass fraction] 98 % [facility] 09-04-2023 08:03-0400 Systolic blood pressure 113 mm[Hg] [facility] 07-24-2023 08:28-0400 Body height 170.18 cm [place] 07-24-2023 08:28-0400 Body mass index (BMI) [Ratio] 44.1 kg/m2 [facility] 07-24-2023 08:28-0400 Body weight 127.91 kg [place] 07-24-2023 08:28-0400 Diastolic blood pressure 78 mm[Hg] [facility] 07-24-2023 08:28-0400 Heart rate 63 /min [place] 07-24-2023 08:28-0400 Systolic blood pressure 114 mm[Hg] [facility] 03-20-2023 08:30-0500 Body height 170.18 cm David Newberry Other [facility] [employer] Other 03-20-2023 08:30-0500 Body mass index (BMI) [Ratio] 43.47 kg/m2 David Newberry Other [facility] Other 03-20-2023 08:30-0500 Body weight 125.92 kg David Newberry Other [facility] Other 03-20-2023 08:30-0500 Diastolic blood pressure 74 mm[Hg] David Newberry Other [facility] Other 03-20-2023 08:30-0500 Systolic blood pressure 109 mm[Hg] David Newberry Other [facility] [employer] Other 01-23-2023 08:56-0500 Blood Pressure Location Clark CLEMENS [facility] 01-23-2023 08:56-0500 Diastolic blood pressure 82 mm[Hg] Clark CLEMENS [facility] 01-23-2023 08:56-0500 Heart rate 73 /min Clark CLEMENS [facility] 01-23-2023 08:56-0500 Respiratory rate 16 /min Clark CLEMENS [facility] 01-23-2023 08:56-0500 Systolic blood pressure 124 mm[Hg] Clark CLEMENS [facility] 12-29-2022 12:42-0400 Diastolic blood pressure 74 mm[Hg] MD David Newberry Work Phone: [facility] 12-29-2022 12:42-0400 Heart rate 95 /min MD David Newberry Work Phone: [facility] 12-29-2022 12:42-0400 Respiratory rate 18 /min MD David Newberry Work Phone: [facility] 12-29-2022 12:42-0400 SaO2% (BldA) [Mass fraction] 97 % MD David Newberry Work Phone: [facility] 12-29-2022 12:42-0400 Systolic blood pressure 105 mm[Hg] MD David Newberry Work Phone: [facility] 12-29-2022 09:45-0400 Body temperature 98.6 [degF] MD David Newberry Work Phone: [facility] 12-29-2022 09:07-0400 Inhaled oxygen flow rate 8 L/min MD David Newberry Work Phone: [facility] 12-29-2022 07:18-0400 Body height 170.18 cm MD David Newberry Work Phone: [facility] 12-29-2022 07:18-0400 Body mass index (BMI) [Ratio] 42.3 kg/m2 MD David Newberry Work Phone: [facility] 12-29-2022 07:18-0400 Body weight 122.46 kg MD David Newberry Work Phone: [facility] 05-19-2022 10:18-0500 Blood Pressure Location Clark CLEMENS [facility] 05-19-2022 10:18-0500 Diastolic blood pressure 71 mm[Hg] Clark CLEMENS [facility] 05-19-2022 10:18-0500 Heart rate 51 /min Clark CLEMENS [facility] 05-19-2022 10:18-0500 Respiratory rate 16 /min Clark CLEMENS [facility] 05-19-2022 10:18-0500 Systolic blood pressure 113 mm[Hg] Clark CLEMENS [facility] 04-10-2022 15:00-0500 Body height 170.18 cm David Newberry Other [employer] Other 04-10-2022 15:00-0500 Body mass index (BMI) [Ratio] 36.33 kg/m2 David Newberry Other [facility] Other 04-10-2022 15:00-0500 Body weight 105.24 kg David Newberry Other [facility] Other 04-10-2022 15:00-0500 Diastolic blood pressure 74 mm[Hg] David Newberry Other [employer] Other 04-10-2022 15:00-0500 SaO2% (BldA) [Mass fraction] 97 % David Newberry Other [facility] Other 04-10-2022 15:00-0500 Systolic blood pressure 122 mm[Hg] David Newberry Other [employer] Other Encounters Encounter Date Encounter Type Care Provider Facility Start: 01-14-2024 End: 01-14-2024 ambulatory Clark CLEMENS Facility:[facility] Start: 01-14-2024 End: 01-14-2024 Patient encounter procedure Clark CLEMENS [facility] Start: 12-14-2023 ambulatory GEENA CAMACHO [facility] Start: 12-04-2023 End: 12-04-[address] [facility] Work Phone: Start: 12-04-2023 End: 12-04-2023 Patient encounter procedure Count Includes [facility] Physician [facility] Work Phone: Start: 11-27-2023 End: 11-27-[address] [facility] Work Phone: Start: 11-27-2023 End: 11-27-2023 Patient encounter procedure Count Includes [facility] Work Phone: Start: 11-18-2023 End: 11-18-2023 ambulatory DASHA GARCIA Not Available Start: [facility]-23-[facility] Start: 10-19-2023 End: 10-19-[address] [facility] Work Phone: Start: 10-19-2023 End: 10-19-2023 Patient encounter procedure [facility] Work Phone: Start: 09-28-2023 End: 09-28-[address] [facility] Work Phone: Start: 09-28-2023 End: 09-28-2023 Patient encounter procedure Count Includes [facility] Physician [facility] Work Phone: Start: 09-04-2023 End: 09-04-[address] [facility] Work Phone: Start: 09-04-2023 End: 09-04-2023 Patient encounter procedure Count Includes [facility] Physician [facility] Work Phone: Start: 09-03-2023 ambulatory GEENA CAMACHO [facility] Start: 08-24-2023 End: 08-24-2023 ambulatory YOUNG SNOW Not Available Start: 08-07-2023 End: 08-07-2023 ambulatory Clark CLEMENS Facility:[facility] Start: 08-07-2023 End: 08-07-2023 Lab Drop off Clark CLEMENS [facility] Start: 08-07-2023 End: 08-07-2023 ambulatory Clark CLEMENS Facility:[facility] Start: 08-07-2023 End: 08-07-2023 Patient encounter procedure Clark Roldan MIKY [facility] Start: 08-01-2023 Non-patient / Non-visit Count Includes [facility] Professional [employer] Work Phone: Start: 07-27-2023 End: 07-27-2023 ambulatory YOEL AMBROSEFRANCISCO Not Available Start: 07-24-2023 End: 07-24-[address] [facility] Work Phone: Start: 07-24-2023 End: 07-24-2023 Patient encounter procedure Count Includes [facility] Physician [facility] Work Phone: Start: 07-07-2023 End: 07-07-2023 ambulatory GERSON [facility] Start: 03-20-2023 End: 03-20-2023 ambulatory David Newberry Other [facility] [employer] Other Start: 03-20-2023 Office outpatient vi sit 15 minutes David Newberry [facility] Start: 03-03-2023 End: 03-03-2023 [facility] Start: 02-27-2023 End: 03-02-2023 ambulatory DAVID NEWBERRY [facility] Start: 02-27-2023 End: 03-01-2023 Subsequent hospital visit by physician [facility] Comment on above: Postural dizziness w ith near syncope Start: 02-10-2023 End: 02-10-2023 ambulatory DASHA GARCIA Not Available Start: 01-23-2023 End: 01-23-2023 ambulatory Clark CLEMENS Facility:[facility] Start: 01-23-2023 End: 01-23-2023 Patient encounter procedure Clark Roldan MIKY [facility] Start: 01-20-2023 End: 01-20-2023 ambulatory Enrique Lucas Facility:[facility] Start: 01-20-2023 End: 01-20-2023 ambulatory MD David Newberry Work Phone: [facility] Work Phone: Start: 01-20-2023 End: 01-20-2023 Patient encounter procedure MD David Newberry Work Phone: [facility] [address] Work Phone: Start: 01-09-2023 End: 01-09-2023 ambulatory [facility] Start: 12-29-2022 End: 12-29-2022 ambulatory Dashamarcial Garcia Facility:[facility] Start: 12-29-2022 End: 12-29-2022 Admission to same day surgery center MD David Newberry Work Phone: [facility] [address] Start: 12-15-2022 End: 12-15-2022 ambulatory Dasha Garcia Facility:[facility] Start: 12-15-2022 End: 12-15-2022 ambulatory MD David Newberry Work Phone: [facility] Work Phone: Start: 12-15-2022 End: 12-15-2022 Patient encounter procedure MD David Newberry Work Phone: [facility] Work Phone: Start: 10-10-2022 End: 10-10-2022 ambulatory David Newberry Other [employer] Other Start: 10-10-2022 Telephone encounter David Newberry [facility] Start: 07-17-2022 End: 07-17-[address] DAVID NEWBERRY Facility:[facility] Start: 07-17-2022 Encounter for other preprocedural examination DR CLARK CLEMENS . [facility] Start: 07-17-2022 Encounter for preprocedural cardiovascular examination DR CLARK CLEMENS . [facility] Start: 07-17-2022 Encounter for preprocedural laboratory examination DR CLARK CLEMENS . [facility] Start: 07-11-2022 End: 07-12-[address] DAVID NEWBERRY Facility:[facility] Start: 07-11-2022 End: 07-12-2022 Encounter for preprocedural laboratory examination DR DAVID NEWBERRY Facility:[facility] Start: 06-02-2022 End: 06-03-[address] DAVID NEWBERRY Facility:[facility] Start: 05-19-2022 End: 05-20-[address] DAVID NEWBERRY Facility:[facility] Start: 05-19-2022 End: 05-19-2022 Patient encounter procedure Clark CLEMENS [facility] Start: 05-16-2022 End: 05-16-2022 ambulatory David Newberry Other [employer] Other Start: 05-16-2022 Telephone encounter David Newberry [facility] Start: 05-09-2022 End: 05-09-2022 ambulatory David Newberry Other [employer] Other Start: 05-09-2022 Nursing evaluation o f patient and report David Newberry [facility] Start: 04-25-2022 End: 04-25-2022 ambulatory David Newberry Other [employer] Other Start: 04-25-2022 Telephone encounter David Newberry [facility] Start: 04-23-[address] DAVID NEWBERRY Facil ity:[facility] Start: 04-12-2022 End: 04-13-2022 ambulatory DR DAVID NEWBERRY Facility:[facility]1 Start: 04-11-2022 End: 04-11-[address] DAVID NEWBERRY [facility] [employer] Other Start: 04-11-2022 Telephone encounter David Newberry [facility] Start: 04-10-2022 Office outpatient vi sit 15 minutes David Newberry [facility] Start: 04-10-2022 End: 04-10-[address] AMBIKA SALDAÑA . [facility] Other Start: 01-09-2022 Adult health examination Gabbi Newberry Other [facility] Other Start: 12-24-2021 End: 12-25-2021 ambulatory ROYER DINH Facility:[facility]1 Start: 11-29-2021 Encounter for genera l adult medical examination without abnormal findings DR DAVID NEWBERRY [facility] Start: 11-23-2021 End: 11-24-[address] DAVID NEWBERRY Facility:[facility] Start: 11-23-2021 End: 11-24-2021 Encounter for general adult medical examination without abnormal findings DR DAVID NEWBERRY Facility:[facility] Procedures Date Procedure Procedure Detail Performing Clinician Start: 08-01-2023 Cortisol total Comment on above: Please Note: The ref erence interval and flagging for this test is for an AM collection. 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 Start: 07-17-2022 Transurethral cystoscopy Clark CLEMENS Start: 03-16-2012 Tonsillectomy and adenoidectomy Clark CLEMENS H/O: hysterectomy S/P laparoscop ic hysterectomy MD David Newberry Work Phone: Laparoscopic-assiste d vaginal hysterectomy Clark CLEMENS Plan of Treatment Date Care Activity Detail Author Start: 06-06-2029 DTaP/Tdap/Td vaccine (2 - Td or Tdap) DTaP/Tdap/Td vaccine (2 - Td or Tdap) [facility] Start: 01-29-2024 ambulatory Ambulatory Facility:[facility] Start: 01-20-2023 Bacteria identified in Urine by Culture Urine Culture [facility] Start: 12-29-2022 [facility] Start: 12-29-2022 Hospital admission [facility] Start: 11-14-2022 COVID-19 Vaccine ( season) COVID-19 Vaccine () [facility] Start: 10-14-2022 Influenza vaccination Flu vaccine (# 1) [facility] Start: 2020 Screening for malign ant neoplasm of cervix [facility] Start: 12-08-2011 Screening for malign ant neoplasm of cervix Pap smear [facility] Start: 2008 Hepatitis C screening Hepatitis C sc reen [facility] Start: 2005 HIV screening [facility] [employer] Start: 2002 Depression Screen Depression Screen [facility] Start: 12-08-1991 Varicella vaccine (1 of 2 - 2-dose childhood series) Varicella vaccine (1 of 2 - 2-dose childhood series) [facility] Start: 1990 Hepatitis B vaccine (1 of 3 - 3-dose series) Hepatitis B vaccine (1 of 3 - 3-dose series) [facility] [employer] Complement C3 [Mass/volume] in Serum or Plasma [facility] Complement C4 [Mass/volume] in Serum or Plasma [facility] Patient referral [facility] Work Phone: End: 02-27-2023 Tilt table Tilt table CV Cardiac Diagnostics Routine Postural dizziness with near syncope 1 Occurrences starting 02/27/2023 until 02/27/2023 MIGUEL LYNCH [facility] Work Phone: Comment on above: 1 Occurrences starti ng 02/27/2023 until 02/27/2023 [facility] Immunizations Immunization Date Immunization Notes Care Provider Fa marielaty 04-25-2020 SARS-CoV-2 (COVID-19 ) mRNA-1273 vaccine Clark CLEMENS [facility] 03-28-2020 SARS-CoV-2 (COVID-19 ) mRNA-1273 vaccine Clarkjosse CLEMENS [facility] 06-07-2019 tetanus toxoid, redu ashly diphtheria toxoid, and acellular pertussis vaccine, adsorbed Clark CLEMENS [facility] 07-01-2018 hepatitis B vaccine, adult dosage Clark CLEMENS [facility] 05-21-2018 hepatitis B vaccine, adult dosage Clark CLEMENS [facility] Payers Date Payer Category Payer Unknown [id number] 2.16.84 0.1.119426.3.579.2.593 1990 Unknown [id number] 2.16.84 0.1.404280.3.579.2.593 1990 Unknown [id number] 2.16.84 0.1.614158.3.579.2.593 1990 Unknown [id number] 2.16.84 0.1.561142.3.579.2.593 1990 Unknown [id number] 2.16.84 0.1.772455.3.579.2.593 1990 Unknown [id number] 2.16.84 0.1.430969.3.579.2.593 1990 Unknown [id number] 2.16.84 0.1.542844.3.579.2.593 1990 Unknown [id number] 2.16.84 0.1.101666.3.579.2.593 1990 Unknown [id number] 2.16.84 0.1.786660.3.579.2.593 1990 Unknown [id number] 2.16.84 0.1.784456.3.579.2.593 1990 Unknown [id number] 2.16.84 0.1.922454.3.579.2.593 1990 Unknown [id number] 2.16.84 0.1.317009.3.579.2.593 1990 Unknown [id number] 2.16.8 40.1.876496.3.579.2.173 1990 Unknown [id number] 2.16.84 0.1.454190.3.579.2.1259 1990 Unknown [id number] 2.16.84 0.1.274402.3.579.2.1259 1990 Unknown [id number] 2.16.84 0.1.118025.3.579.2.1259 1990 Unknown [id number] 2.16.840 .1.528688.3.579.2.1259 1990 Unknown [id number] 2.16.8 40.1.438183.3.579.2.727 1990 Unknown [id number] 2.16.8 40.1.470226.3.579.2.727 1990 Unknown [id number] 2.16.8 40.1.148697.3.579.2.727 1990 Unknown [id number] 2.16.8 40.1.699236.3.579.2.727 1990 Unknown [id number] 2.16.8 40.1.223714.3.579.2.727 1990 Unknown [id number] 2.16.8 40.1.097028.3.579.2.727 1959 Private Health Insurance [id number] 1959 Self-pay Private Health Insurance [id number] 2.16.840.1.595487.19 Unknown [id number] 2.16.8 40.1.334632.3.579.2.531 Unknown [id number] 2.16.8 40.1.194163.3.579.2.531 Unknown [id number] 2.16.8 40.1.057492.3.579.2.531 Social History Date Type Detail Facility Unknown if ever smoked [facility] Other Sex Assigned At [facility] Start: 05-19-2022 End: 09-04-2023 Tobacco smoking status Never smoked tobacco (finding) [facility] Tobacco smoking status Never [facility] Start: 1990 Sex Assigned At Female [facility] Tobacco smoking status NVIS Tobacco smoking consumption unknown [facility] Start: 1990 Sex Assigned At Not on file [facility] Goals Date Patient Goal Desired Activity /State Functional Status Date Assessment Result Facility 01-23-2023 Functional Status N/A [facility] 05-19-2022 Functional Status N/A [facility] Clinical Notes 04-10-2022 to 07-07-2023 Note Date [...] All other systems reviewed and are negative. [facility] 07-07-2023 Note Cardiovascular Medic [facility] SUBJECTIVE Chief Complaint Patient presents with [...] had a tilt table study done at [facility]. this that was a negative study based [...] frequency Urinary urgency (more content not included)... [facility] 03-20-2023 Evaluation note Encounter Date Diagnosis Assessment Notes Mar, Paroxysmal SVT (supraventricul ar tachycardia) (ICD-10 - I47.10) Discussed f/u w cardiology Mar, Daytime somnolence (ICD-10 - R40.0) HST order faxed to [facility] sleep lab. Mar, Morbid (severe) obesity due to excess calories (ICD-10 - E66.01) as above Mar, Body mass index [BMI] 40.0-44.9, adult (ICD-10 - Z68.41) as above Mar, Fatigue, unspecified type (ICD-10 - R53.83) as above [facility] Other [id number] NotePatient here for follow up tilt table test per Elana Ramirez CNP. Review of Systems Cardiovascular: Positive for palpitations. Neurological: Positive for dizziness, headaches and light-headedness. All other systems reviewed and are negative.[facility] 03-03-2023 NoteUT Electrophysiology Consult Note Reason [...] had a tilt table study done at [facility]. this that was a negative study based [...] tablet 3 No curre (more content not included)...[facility] 02-27-2023 History of Present illness Narrative* May Crandall RN - 02/27/2023 2:30 PM EST Instructed on objectives and procedure of a tilt study [facility] Discharge instructions Patient Education 01/23/2023 09:39:05 Urinary Tract Infection, Adult, [id number] Urinary Tract Infection, Adult A urinary tract [...] Follow these instructions at home: Medicines Take [id number] and prescription medicines only as told by [...] provider. Document Revised: 10/12/2020 Document Reviewed: 10/12/2020 [employer] Patient Education 2022 [employer]. Follow Up Care 07/18/2022 12:23:23 With:MIKY SAMPSON, Clark Roldan, URL Address: [facility] [address] [place] [address]- [phone] When: Unknown Comments:1 yr w/ KUB [facility] 10-27-2023 NotePatient here for 4 mo follow [...] light-headedness. All other systems reviewed and are negative.[facility] 01-09-2023 NoteUT Electrophysiology Consult Note Reason [...] no cyanosis, no pa (more content not included)...[facility]10-01-2023 History general Narrative - Reported* Type Description Date Medical History tachycardia Medical History anxiety Medical History sjogren syndrome Surgical History tonsillectomy and adenoidectomy Surgical History Hysterectomy 12/2022 Surgical History Loop monitor 08/2022 [facility] Other 03-06-2023 Hospital Discharge instructions Patient Education 05/19/2022 10:46:00 [...] include: ?Spinach. ?Rhubarb. ?Beets. ?Potato chips and malian fries. ?Nuts. If you regularly take a diuretic medicine, make sure to eat at least 1 2 fruits or vegetables high in potassium each day. These include: ?Avocado. ?Banana. ?[place], prune, carrot, or tomato juice. ?Baked potato. [...] Casseroles. Pizza. Lasagna. Frozen meals. Potato chips. Azeri fries. Summary You can reduce your risk [...] 06/27/2011 Document Revised: 06/22/2019 Document Reviewed: 02/10/2017 [employer] Patient Education 2019 [employer]. Follow Up Care 05/16/2022 10:14:36 With:MIKY SAMPSON, Clark Roldan, URL Address: [facility] [address], [place] [address]- When: Unknown [facility] 03-03-2023 Evaluation note* Encounter Date Diagnosis Assessment Notes Treatment Notes Treatment Clinical Notes May, Thyroid disease (ICD-10 - E07.9) [facility] Other 02-24-2023 Evaluation note* Encounter Date Diagnosis Assessment Notes Treatment Notes Treatment Clinical Notes Apr, Dysuria (ICD-10 - R30.0) [facility] Other 01-26-2023 Evaluation note* Encounter Date Diagnosis [...] Acute non-recurrent maxillary sinusitis (ICD-10 - J01.00) [facility] Other chief complaint+Reason for visit Narrative* Chief Complaint Weight Loss Referral Dr. Diana Reason for Visit Abnormal weight gain Fatigue HTN (hypertension) [facility] Work Phone: Chiqs complaint+Reason for visit Narrative* Chief Complaint Weight Loss Referral Dr. Diana feet , ankle swelling Reason for Visit Abnormal weight gain Fatigue HTN (hypertension) Abnormal weight gain Depression Fatigue HTN (hypertension) Obesity, Class III, BMI 40-49.9 (morbid obesity) KRISTA on CPAP [facility] Work Phone: Chixu complaint+Reason for visit Narrative* Chief Complaint Weight Loss Referral Dr. Diana feet , ankle swelling Reason for Visit Abnormal weight gain Fatigue HTN (hypertension) Abnormal weight gain Depression Fatigue HTN (hypertension) Obesity, Class III, BMI 40-49.9 (morbid obesity) KRISTA on CPAP Lower extremity edema Neck pain Abnormal weight gain Depression Fatigue HTN (hypertension) Obesity, Class III, BMI 40-49.9 (morbid obesity) KRISTA on CPAP [facility] Work Phone: chief complaint+Reason for visit Narrative* Chief Complaint Referral Dr. Rosalba ramos feet , ankle swelling WMN Initial RD Reason for Visit Abnormal weight gain Depression Fatigue HTN (hypertension) Obesity, Class III, BMI 40-49.9 (morbid obesity) KRISTA on CPAP Lower extremity edema Neck pain Abnormal weight gain Depression Fatigue HTN (hypertension) Obesity, Class III, BMI 40-49.9 (morbid obesity) KRISTA on CPAP [facility] Work Phone: Evaluation + Plan note No data available for this section [facility] evaluation + Plan note Future Appointments Appointment Date:01/29/2024 08:30:00 AM Scheduled Provider:Clark CLEMENS MD Location:[facility] Appointment Type:URO Office Visit [facility] evaluation + Plan note Future Appointments Appointment Date:01/29/2024 08:30:00 AM Scheduled Provider:Clark CLEMENS MD Location:[facility] Appointment Type:URO Office Visit Diagnostic Tests Pending * Urine Culture 08/07/23 [facility] noteNo InformationNort [employer] Other evaluation noteNo assessment information available [facility] Work Phone: evaluation note* Diagnosis Postural dizziness with near syncope documented in this encounter [facility] Diagnosis Onset Date Resolution Status Abnormal weight gain acute Fatigue acute HTN (hypertension) acute [facility] Work Phone: Evaluation note* Diagnosis Onset Date Resolution Status Abnormal weight gain acute Fatigue acute HTN (hypertension) acute Abnormal weight gain acute Depression acute Fatigue acute HTN (hypertension) acute Obesity, Class III, BMI 40-49.9 (morbid obesity) acute KRISTA on CPAP acute [facility] Work Phone: Evaluation note* Diagnosis Onset Date Resolution Status Abnormal weight gain acute Fatigue acute HTN (hypertension) acute Abnormal weight gain acute Depression acute Fatigue acute HTN (hypertension) acute Obesity, Class III, BMI 40-49.9 (morbid obesity) acute KRISTA on CPAP acute Lower extremity edema acute Neck pain acute Abnormal weight gain acute Depression acute Fatigue acute HTN (hypertension) acute Obesity, Class III, BMI 40-49.9 (morbid obesity) acute KRISTA on CPAP acute [facility] Work Phone: Evaluation note* Diagnosis Onset Date Resolution Status Abnormal weight gain acute Depression acute Fatigue acute HTN (hypertension) acute Obesity, Class III, BMI 40-49.9 (morbid obesity) acute KRISTA on CPAP acute Lower extremity edema acute Neck pain acute Abnormal weight gain acute Depression acute Fatigue acute HTN (hypertension) acute Obesity, Class III, BMI 40-49.9 (morbid obesity) acute KRISTA on CPAP acute [facility] Work Phone: Evaluation note* Diagnosis Onset Date Resolution Status Lower extremity edema acute Neck pain acute Abnormal weight gain acute Depression acute Fatigue acute HTN (hypertension) acute Obesity, Class III, BMI 40-49.9 (morbid obesity) acute KRISTA on CPAP acute Abnormal weight gain acute Depression acute Fatigue acute HTN (hypertension) acute Obesity, Class III, BMI 40-49.9 (morbid obesity) acute KRISTA on CPAP acute [facility] Work Phone: History general Narrative - Reported* Type Description Date Medical History tachycardia Medical History anxiety Medical History sjogren syndrome Surgical History tonsillectomy and adenoidectomy [facility] Other Hospital Discharge instructions No data available for this section [facility] note No data available for this section [facility] Rob Summary Purpose Family History No Family History Records Found Relationship Condition Age at Onset Recorded Date/T livia father Heart disease Unknown Not Specified Hypertension Unknown grandparent Malignant neoplasm of prostate Unknown Diabetes mellitus Unknown grandparent Heart disease Unknown brother Hypertension Unknown Relationship Condition Age at Onset Recorded Date/T livia father Heart disease Unknown Disorder of hemostasis Unknown Not Specified Hypertension Unknown Not Specified Malignant neoplasm of prostate Unknown Not Specified Diabetes mellitus Unknown brother Hypertension Unknown Heart disease Unknown Myocardial infarction Unknown Relationship Condition Age at Onset Recorded Date/T livia father Heart disease Unknown Disorder of hemostasis Unknown mother Hypertension Unknown maternal grandfather Malignant neoplasm of prostate Un known maternal grandmother Diabetes mellitus Unknown brother Hypertension Unknown paternal grandfather Diabetes mellitus Unknown Heart disease Unknown Myocardial infarction Unknown Advance Directives No Advanced Directives Records [...] Visit Abnormal weight gain Fatigue HTN (hypertension) Chief Complaint feet , ankle swellin g WMN Initial RD Reason for Visit Lower extremity glen a Neck pain Abnormal weight gain Depression Fatigue HTN (hypertension) Obesity, Class III, BMI 40-49.9 (morbid obesity) KRISTA on CPAP Abnormal weight gain Depression Fatigue HTN (hypertension) Obesity, Class III, BMI 40-49.9 (morbid obesity) KRISTA on CPAP Reason for Referral Specialty Diagnoses / Procedures Referred By Contac t Referred To Contact Diagnoses Postural dizziness with near syncope Procedures Tilt table Elana Ramirez, PROGRAM DIRECTOR SCOUTING - PRINTER MAINTAINER [address] [place] [address] Referral ID Status Reason Start Date Expiration Date Visits Re quested Visits Authorized [id number] Closed 02/16/2023 02/16/2024 1 1 Additional Source Comments INFORMATION SOURCE (unrecogn ized section and content) DATE CREATED AUTHOR 03/29/2019 [facility] DATE CREATED AUTHOR AUTHOR'S ORGANIZ ATION 07/24/2022 [facility] DATE CREATED AUTHOR AUTHOR'S ORGANIZ ATION 01/29/2023 [place] DATE CREATED AUTHOR AUTHOR'S ORGANIZ ATION 03/02/2023 [facility] DATE CREATED AUTHOR AUTHOR'S ORGANIZ ATION 08/10/2023 [facility] DATE CREATED AUTHOR AUTHOR'S ORGANIZ ATION 11/20/2023 [facility] EPIC DATE CREATED AUTHOR AUTHOR'S ORGANIZ ATION 12/15/2023 [facility] DATE CREATED AUTHOR AUTHOR'S ORGANIZ ATION 01/16/2024 [facility] REASON FOR VISIT (unrecogniz ed section and content) Specialty Diagnoses / Procedures Referred By Benny murillo Referred To Contact Diagnoses Postural dizziness with near syncope Procedures Tilt table Elana Ramirez APRN - PRINTER MAINTAINER [address] [place] [address] Referral ID Status Reason Start Date Expiration Date Visits Re quested Visits Authorized [id number] Closed 02/16/2023 02/16/2024 1 1 Patient Care [...] Active Enrique Lucas MD Attending Provider Active Signal Worker Helper Relationship Specialty Start Date End Date David Newberry MD [address] [place] [phone] PCP - General Family Medicine 02/27/23 Team Status: Inactive Member Role Status Dates David Newberry MD Primary Care Provide r, Attending Provider Active Start: July 24, 2023 End: July 24, 2023 Team Status: Active Member Role Status Dates David Newberry MD Primary Care Provide r, Attending Provider Active Start: August 01, 2023 Team Status: Inactive Member Role Status Dates David Newberry MD Primary Care Provider Active Start: September 04, 2023 End: September 04, 2023 Julita Hernandez APRN Attending Provider Active Start: September 04, 2023 End: September 04, 2023 Team Status: Inactive Member Role Status Dates David Newberry MD Primary Care Provider Active Start: September 28, 2023 End: September 28, 2023 Charlene Reeves APRN PRINTER MAINTAINER-C Attending Provider Act eb Start: September 28, 2023 End: September 28, 2023 Team Status: Inactive Member Role Status Dates David Newberry MD Primary Care Provider Active Start: October 19, 2023 End: October 19, 2023 Julita Hernandez APRN Attending Provider Active Start: October 19, 2023 End: October 19, 2023 Team Status: Inactive Member Role Status Dates David Newberry MD Primary Care Provider Active Start: November 27, 2023 End: November 27, 2023 FILOMENA Taylor Attending Provider Active S tart: November 27, 2023 End: November 27, 2023 Team Status: Inactive Member Role Status Dates David Newberry MD Primary Care Provider Active Start: December 04, 2023 End: December 04, 2023 Julita Hernandez APRN Attending Provider Active Start: December 04, 2023 End: December 04, 2023 Goals (unrecognized section and content) Goals [...] BE BASED ON THE PRIMARY CLINICAL RECORDS. [employer] provides no warranty or guarantee of the accuracy or completeness of information in this document.
== END 2024-01-22 16:50 | disposition home or self-care (01) ==
PROVIDERS: PCP Family Medicine; Visit Provider Urology
DX: Z87.442 Personal history of urinary calculi (principal)
CPT/HCPCS: 74018

== ENCOUNTER 2024-02-29 08:03 | Outpatient (OUT) | payer OTHER, SELFPAY ==
--- OUTSIDE RECORDS SUMMARY | 2024-02-29 08:18 | XMS_ITS | CCD ---
Author Organization [facility] Care Team Providers Care Date Puller Name Role Phone David Newberry Unavailable DAVID [...] Unavailable CLEMENS ., DR RODAS Attending Unavailable JOANNA VAZ Consulting Unavailable NEWBERRY, DR DAVID Fisher Primary Care Unavailable CLEMENS ., DR RODAS Consulting Unavailable CLEMENS ., DR RODAS Attending Unavailable CLEMENS ., DR RODAS Admitting Unavailable KEITH PLASENCIA Consulting Unavailable DELFINO COVINGTON Consulting Unavailable MD David Newberry Primary Care Provider [phone] DO Dasha Garcia Attending Provider MD David Newberry Primary Care Provider DO Dasha Garcia Attending Provider MD Enrique Lucas Attending Provider Enrique Lucas Admitting Unavailable Enrique Lucas Attending Unavailable David Newberry Primary Care Unavailable Jose, Dasha Admitting Unavailable Dasha Garcia Attending Unavailable David Newberry Primary Care Unavailable Dasha Garcia Attending Unavailable Dasha Garcia Admitting Unavailable David Newberry Primary Care Unavailable David Newberry MD Primary Care Provider DAVID NEWBERRY Primary Care Unavailable ELANA RAMIREZ Referring Unavailable CLEMENS, Clark R Attending Unavailable CLEMENS, Calrk R Admitting Unavailable CLEMENS, Clark R Attending Unavailable CLEMENS, Clark R Admitting Unavailable CLEMENS, Clark R Attending Unavailable CLEMENS, Clark R Attending Unavailable CLEMENS, Clark R Attending Unavailable CLEMENS, Clark R Attending Unavailable David Newberry MD Primary Care Provider DASHA GARCIA Attending Unavailable JOANNA POTTER Attending Unavailable YOUNG SNOW Attending Unavailable DASHA GARCIA Attending Unavailable JOANNA POTTER Attending Unavailable DOUG, GEENA Referring Unavailable DOUG, GEENA Referring Unavailable DOUG, GEENA Referring Unavailable ROYER DINH Attending Unavailable CRISTIAN MISTRY Attending Unavailable GERSON SOTO Attending Unavailable DOUG, GEENA Referring Unavailable DOUG, GEENA Referring Unavailable FEDE, CRISTIAN Referring Unavailable DOUG, GEENA Referring Unavailable FEDE, CRISTIAN Referring Unavailable FEDE, CRISTIAN Referring Unavailable FEDE, CRISTIAN Referring Unavailable DOUG, GEENA Referring Unavailable DOUG, GEENA Referring Unavailable Allergies Allergy Classification Reported Allergen(s) Allergy Type Date of Onset Reaction(s) Facility (20 sources) Penicillin; Translations: [penicillin] Drug Allergy 03-26-19 21 rash, Weal (disorder) [facility] [place] (2 sources) Allergies Reconciled Propensity to adverse reactions Unknown [facility] Other (2 sources) Substance with penicillin structure and antibacterial mechanism of action (substance) Drug allergy 01-20-20 13 Unknown [facility] Other (2 sources) patient allergy list reviewed by nurse or physicia Propensity to adverse reactions 09-08-19 14 Comment:Done [facility] Other (8 sources) Penicillins; Translations: [Penicillins] Allergy to substance 12-16-19 23 Rash [facility] (12 sources) Povidone-Iodine; Translations: [povidone iodine topical] Drug Allergy 03-03-20 23 Eruption of skin (disorder), Rash [facility] (10 sources) Iodine; Translations: [Iodine] Drug Allergy 09-04-19 24 Unknown (qualifier value), Rash, Unknown [facility] (3 sources) Penicillin G Drug Allergy 08-24-19 22 Rash, Other [facility] (3 sources) Povidone-Iodine Drug Allergy 07-24-19 24 Rash [facility] (3 sources) Other Propensity to adverse reactions 07-24-19 24 Unknown [facility] Medications Current Medications Medication Drug Class(es) Dates Sig (Normalized) Sig (Original) cetirizine hydrochloride 10 mg oral tablet (7 sources) Histamine-1 Receptor Antagonist Start: 04-15-2022 take 1 tablet by mouth every twenty-four hours Cetirizine HCl 10 MG 1 tablet Orally Once a day for 14 days Mar, Active fluconazole 150 mg oral tablet (3 sources) Azole Antifungal Start: 11-18-2023 fluconazole (Diflucan) 150 MG tablet Indications: Yeast infection One tablet every 3 days for 3 doses 3 tablet 11/18/2023 Active fluticasone propionate 0.05 mg/actuat metered dose [...] Refills(s) 0 Start Date: 05/19/22 Status: Ordered metoprolol tartr ate (Lopressor) 75 MG tablet every 12 (twelve) hours. Active take 1 tablet by meg th twice [...] nitroGLYCERIN (NITROSTAT) SL tablet 0.3 mg Vit 51-Haqm-Ibdfk-Dha ( + Dha) 28 mg iron- 975 mcg-200 mg Combo Pack (8 sources) Start: 04-21-2019 End: 12-15-2022 take 1 tablet by mouth once daily Vit 72-Vyjz-Qtjnm-Dha ( + Dha) 28 mg iron- 975 mcg-200 mg Combo Pack Discontinued 1 TAB PO Daily April 21, 2019 12:00am December 15, 2022 1:43pm Start: 04-21-2019 End: 12-15-2022 take 1 tablet by mouth once daily Vit 91-Jewv-Xprpa-Dha ( + Dha) 28 mg iron- 975 mcg-200 mg Combo Pack Discontinued 1 TAB PO Daily April 21, 2019 1:00am December 15, 2022 2:43pm traMADol hydrochloride 50 mg oral tablet (7 sources) Opioid Agonist Start: 12-29-2022 End: 07-24-2023 take 50 mg by mouth every six hours Tramadol Discontinued 50 MG PO Q6H 30 December 29, 2022 12:00am July 24, 2023 8:35am Problems Active Problems Problem Classification Problem Date Documented Date Episodic/Chronic Abdominal pain (20 sources) Abdominal pain; Translations: [Unspecified abdominal pain] Onset: 09-22-2013 Episodic Acute bronchitis (9 sources) Acute bronchitis; Translations: [Acute bronchitis, unspecified] Onset: 09-12-2015 11-10-2019 Episodic Allergic reactions (20 sources) Contact dermatitis; Translations: [Eczema] Onset: 06-18-2017 11-10-2019 Episodic Anxiety disorders (9 sources) Anxiety; Translations: [Anxiety disorder] Onset: 09-07-2013 11-10-2019 Chronic Attention-deficit, conduct, and disruptive behavior disorders (5 sources) Attention deficit hyperactivity disorder; Translations: [Attention-deficit hyperactivity disorder, unspecified type] 09-02-2023 Chronic Bacterial infection; unspecified site (8 sources) Methicillin resistant Staphylococcus aureus infection; Translations: [...] or chronic] Episodic Coagulation and hemorrhagic disorders (9 sources) Spontaneous ecchymosis; Translations: [Spontaneous ecchymoses] Onset: 11-30-2013 11-10-2019 Episodic Coma; stupor; and brain damage (7 sources) Daytime somnolence; Translations: [Somnolence] Episodic Conditions associated with dizziness or vertigo (2 sources) Postural dizziness; Translations: [Dizziness and giddiness] Onset: 02-27-2023 02-27-2023 Episodic Endometriosis (7 sources) Uterine adenomyosis; Translations: [Adenomyosis of uterus] 12-29-2022 Chronic Esophageal disorders (10 sources) Gastroesophageal reflux disease; Translations: [Gastro-esophageal reflux [...] of hypertension] Episodic Other connective tissue disease (7 sources) Bursitis 11-10-2019 Episodic Other connective tissue disease (9 sources) Fibromyalgia; Translations: [Fibromyalgia] Onset: 02-13-2015 11-10-2019 Episodic Other connective tissue disease (1 source) Fibromyalgia; Translations: [FIBROMYALGIA] Onset: 07-24-2022 Episodic Other female genital disorders (8 sources) History of past delivery; Translations: [Status post vaginal delivery] 06-07-2019 Episodic Other lower respiratory disease (5 sources) Snoring; Translations: [Snoring] 09-02-2023 Episodic Other lower respiratory disease (5 sources) Hypoxia; Translations: [Hypoxemia] Onset: 07-27-2023 02-08-2024 Episodic Other nutritional; endocrine; and metabolic disorders (7 sources) Body mass index 30+ - obesity [...] Chronic Other nutritional; endocrine; and metabolic disorders (5 sources) Obesity caused by energy imbalance; Translations: [Other obesity due to excess calories] Onset: 07-24-2023 02-08-2024 Chronic Other nutritional; endocrine; and metabolic disorders (3 sources) Obesity; Translations: [Obesity, unspecified] Onset: 07-24-2023 07-24-2023 Chronic Other nutritional; endocrine; and metabolic disorders [...] 02-09-2017 Episodic Otitis media and related conditions (9 sources) Otitis media; Translations: [Acute secretory otitis media] Onset: 06-03-2017 11-10-2019 Episodic Residual codes; unclassified (10 sources) Obstructive sleep apnea syndrome; Translations: [Obstructive sleep apnea (adult) (pediatric)] Onset: 07-24-2023 09-02-2023 Chronic Residual codes; unclassified (7 sources) Obstructive sleep apnea (adult) (pediatric); Translations: [Obstructive sleep apnea (adult)(pediatric)] 09-04-2023 Chronic Residual codes; unclassified (5 sources) Hypersomnia; Translations: [Hypersomnia, unspecified] Onset: 07-24-2023 02-08-2024 Chronic Residual codes; unclassified (3 sources) Periodic limb movement disorder; Translations: [Periodic limb movement disorder] Onset: 07-24-2023 07-24-2023 Chronic Residual codes; unclassified (1 source) Acquired absence of both cervix and uterus; Translations: [Acquired absence of both cervix and uterus] Onset: 12-29-2022 Episodic Residual codes; unclassified (3 sources) Edema of lower extremity; Translations: [Localized edema] 09-29-2023 Episodic Residual codes; unclassified (3 sources) Localized edema; Translations: [Edema] 09-28-2023 Episodic Residual codes; unclassified (1 source) Family history of kidney disease; Translations: [Family history of disorders of kidney and ureter] Onset: 01-29-2024 Episodic Residual codes; unclassified (1 source) Family history of renal stone 01-29-2024 Episodic Skin and subcutaneous tissue infections (11 sources) Cellulitis caused by Staphylococcus aureus; Translations: [Abscess of right lower limb] 11-17-2020 Episodic Spondylosis; intervertebral disc disorders; other back problems (17 sources) Backache; Translations: [Dorsalgia, unspecified] Onset: 09-07-2013 11-10-2019 Episodic Syncope (10 sources) Syncope; Translations: [Syncope and collapse] Onset: 09-22-2013 11-10-2019 Episodic Systemic lupus erythematosus and connective tissue disorders (10 sources) Sjogren's syndrome; Translations: [Sicca syndrome, unspecified] [...] laboratory examination] Onset: 12-15-2022 Urinary tract infections (13 sources) Urinary tract infectious disease; Translations: [Urinary tract infection, site not specified] Onset: 05-19-2022 Episodic Viral infection (11 sources) Verruca vulgaris; Translations: [Viral wart, unspecified] Onset: 02-09-2017 11-10-2019 Episodic Viral infection (2 sources) Disease caused by 2019-nCoV; Translations: [COVID-19] Past or Other Problems Problem Classification Problem Date Documented Da te Episodic/Chronic Immunizations and screening for infectious disease (4 [...] Value Interpretation Reference Range Facility Office Visiton 02-16-2024 Follow-up visit [id number] Ada Kirkland 1990 F Date Provider Department Center 02/16/2024 3848-ROYER DINH RADHA Rivas [facility] Family History Problem Relation Age of Onset Heart attack Father 44 Coronary artery disease Father Clotting disorder Father Family Status - Relation Status Age at Father Alive Level of Service:06909 MS OFFICE/OUTPATIENT ESTABLISHED LOW MDM 20 MIN Normal [facility] Ambulatory Visit Summaryon 1 03-30-2023 Ambulatory Visit Summary Ambulatory Visit Summary MORGAN KIRKLAND :1990 Visit Date:01/29/2024 Ambulatory Visit Instructions Your Diagnosis History of kidney stones Recurrent UTI Family history of kidney stones Your Care Team Attending Physician - MIKY SAMPSON, Clark Roldan Primary Care Physician - DAVID NEWBERRY MD This Is Your Medications List Contact prescribing physician if questions or concerns metoprolol (Metoprolol Tartrate 75 mg oral tablet) Procedures Performed Cystoscopy (07/17/2022), Tonsillectomy and adenoidectomy (2012), Laparoscopic-assisted vaginal hysterectomy, Sleep apnea. Discharge Vitals Temperature (Oral) 37 ???C Heart Rate (Peripheral) 52 Respiratory Rate 16 Blood Pressure 116/83 Height 172 cm Height 68 in Weight 130 kg Weight 286.601 lb BMI 43.94 What to do next You Need to Schedule the Following Appointments Follow Up with MIKY SAMPSON, ISMAEL Leiva When: In 3 months Comments: w/Met W/up Where: [facility] [address] [place] [address]- Medications What When Instructions Unchanged metoprolol (Metoprolol Tartrate 75 mg oral tablet) Contact prescribing physician if questions or concerns Allergies Betadine (Rash) iodine (Unknown) penicillin (Hives) Problems Ongoing - Any problem that you are currently receiving treatment for. Acute bronchitis Acute right flank pain Anxiety Back pain BMI 36.0-36.9,adult Bursitis Chronic GERD Contact dermatitis Eczema Epigastric pain Family history of kidney stones Fibromyalgia Gross hematuria History of kidney stones Hypertension Infection of skin due to methicillin resistant Staphylococcus aureus (MRSA) Kidney stone Left sided abdominal pain MRSA cellulitis Otitis media Palpitations Recurrent UTI Sjogren's syndrome Spontaneous ecchymoses Syncope Tachycardia Urinary frequency Urinary urgency UTI symptoms Verruca vulgaris Patient Survey You may receive a survey via text or e-mail asking about your office visit. Please share your experience with us by completing your survey. We appreciate your feedback and thank you for choosing us for your care. Normal [facility] Urology Office/Clinic Noteon 01-29-2024 Urology Office/Clinic Note Urology Office/Clinic Note Chief Complaint 1yr f/u KUB HPI Staff 33yr old female pt here for 1yr with KUB. Renal US done 08/13/23. KUB done 01/22/24. s/p cysto/r ureteral dilation/r URS/basket extraction 07/17/22. Previous Dx: history of kidney stones, recurrent uti Dysuria: has had burning off and on with urination, thought she might have UTI so she came in and gave a sample, UA was negative. No culture done. But pt reports in the past she has had UTI where the UA was negative and culture was positive. UA in office today was negative Incomplete bladder emptying: denies Hematuria: denies Frequency: every 2-3hrs Urgency: denies Nocturia: denies Stream: good stream Leaking: denies Post void dripping: denies Wearing pads/ Depends: denies Urge incontinence: denies Stress incontinence: denies Incontinence without Sensory Awareness: denies Abdominal pain: denies Flank pain: denies Sexual complaints: denies History of Present Illness Tests reviewed: reviewed UA, JANIS, and KUB. I have reviewed the previous health record information and history for this patient from . I have reviewed and verified the staff HPI to be accurate for this encounter. There have been no associated fever, chills, flank pain, or blood in the urine. Denies any urinary infections since last encounter. Review of Systems PHQ Score Initial Depression Screen Score: 3 SCORE Detailed Depression Screen Score: 10 Total Depression Screen Score: 13 ROS - Provider Constitutional: denies weight loss, denies hot flashes. Eyes: denies eye problems. Gastrointestinal: denies nausea, denies vomiting. Cardiovascular: denies chest pain or angina. Integumentary: no dryness Musculoskeletal: denies musculoskeletal symptoms. ENMT: denies otolaryngeal symptoms. Respiratory: no shortness of breath. Heme/Lymph: denies easy bleeding tendency, denies easy bruising tendency. Psychiatric: no confusion, no anxiety. Genitourinary: See HPI. Physical Exam Vitals & Measurements T: 37 ???C(Oral) HR: 52(Peripheral) RR: 16 BP: 116/83 HT: 68 in HT: 172 cm WT: 130 kg WT: 286.601 lb BMI: 43.94 General Appearance: alert , no acute distress, well nourished, well developed female. Assessment/Plan 1. History of kidney stones (Z87.442: Personal history of urinary calculi) Had a stone in 2019, heard it hit the toilet. S/p Cysto/R ureteral dilation/R URS/basket extraction 07/17/22. KUB 01/17/23 [facility] - no stones noted KUB 01/22/24 [facility] - no stones noted JANIS 01/22/24 [facility] - no stones noted Denies any stone episodes since last encounter. Reports she maintains increased fluid intake. Will continue to monitor. Pt states that her mother gets kidney stones often and has no pain when she starts to pass them. Advised pt that we will get a metabolic workup done due to fam hx. Pt voiced her understanding of this. Follow up in 3 mos w/Metabolic Workup. All questions/concerns were discussed. Pt to call the office if she encounters any issues prior. Pt acknowledges understanding. Portions of this record may have been created with voice recognition artificial intelligence software, specifically DueProps, CyActive and or Wizpert. Substitutions may have occurred due to the inherent limitations of voice recognition and artificial intelligence software. -Cont increased fluid intake -Will order Metabolic workup. 2. Recurrent UTI (N39.0: Urinary tract infection, site not specified) UCx 01/20/23 - neg. UCx 08/07/23 - E.Coli, tx'd w/Bactrim DS 800mg-160mg BID x5 days PVR today was 74cc. UA today negative for blood and infection. Denies burning with urination or gross hematuria w/o other UTI sxs. 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 Pt states that she drinks 0.5-1 gal of water a day, feels empty when she voids. Advised pt that she needs to ensure she is emptying. -Continue with behavioral changes. 3. Family history of kidney stones (Z84.1: Family history of disorders of kidney and ureter) Mother has them frequently. -See #1 Follow-up With When Contact Information Clark CELMENS MD, URL In 3 months [facility] [address] [place] [address]- Additional Instructions: w/Met W/up Patient Education I, Chinyere Curiel , personally scribed for Dr. Clemens on 01/29/2024 09:17:56. . Documentation recorded by the wilmeribChinyere fisher, accurately reflects the services(s) I performed and decisions made by me. Problem List/Past Medical History Ongoing Acute bronchitis Acute right flank pain Anxiety Back pain BMI 36.0-36.9,adult Bursitis Chronic GERD Contact dermatitis Eczema Epigastric pain Family history of kidney stones Fibromyalgia Gross hematuri (more content not included)... Normal [facility] Comment on above: Result Comment: Elec tronically Signed By: Clark CLEMENS MD\.br\Date and Time Signed: 01/29/24 09:19 EST\.br\Electronically Co-Signed By: Chinyere Curiel\Date and Time Co-Signed: 01/29/24 09:18 EST HbA1c HPLC (Bld) [Mass fract ion]on 09-04-2023 HbA1c (Bld) [Mass fraction] 5.0 % [facility] RAD - Ultrasound Reporton RAD - Ultrasound Report [id number]#1.00TIFF Normal [facility] RAD - MISCon 08-12-2023 RAD - MISC [id number]#1.00TIFF Normal [facility] - MISC [id number]#1.00TIFF Normal [facility] C Urineon 08-09-2023 Bacteria identified Cx Nom (U) Microbiology PROCEDURE: Urine Culture [R1] SOURCE: U CleanCatch BODY SITE: COLLECTED DATE/TIME: 08/07/2023 14:07 EDT RECEIVED DATE/TIME: 08/07/2023 17:42 EDT START DATE/TIME: 08/07/2023 17:42 EDT FREE TEXT SOURCE: Clark CLEMENS MD, MD, Clark Roldan FINAL REPORTS Final Report [...] Locations R1: This test was performed at: [facility], [address] [place] [address], [facility]- , , [facility] Comment on above: Performed By: #### [id number] #### [facility] [address] [place] [address] Bacteria identified Cx Nom (U) Microbiology PROCEDURE: Urine Culture [R1] SOURCE: U CleanCatch BODY SITE: COLLECTED DATE/TIME: 08/07/2023 14:07 EDT RECEIVED DATE/TIME: 08/07/2023 17:42 EDT START DATE/TIME: 08/07/2023 17:42 EDT FREE TEXT SOURCE: MIKY SAMPSON, Clark CLEMENS MD, Clark R FINAL REPORTS Final Report [] Verified Date/Time: [...] Locations R1: This test was performed at: [facility], [address] [place] [address], [id number]- , [place], Normal [facility] Comment on above: Performed By: #### [id number] #### [facility] [address] [place] [address] Basophils Auto (Bld) [#/Vol] on 08-01-2023 Basophils (Bld) [#/Vol] 0.0 10 3/uL 0.0-0.1 [facility] Basophils/100 WBC Auto (Bld) on 08-01-2023 Basophils/100 WBC (Bld) 0.6 % 0.2-2.0 [facility] Eosinophils/100 WBC Auto (Bl d)on 08-01-2023 Eosinophils/100 WBC (Bld) 1.6 % 0.9-7.0 [facility] Erythrocyte distribution wid th Auto (RBC) [Ratio]on 08-01-2023 Erythrocyte distribution width (RBC) [Ratio] 12.1 % 11.0-15.0 [facility] Estimated glomerular filtrat ion rate (GFR) non- Americanon 08-01-2023 GFR/1.73 sq M.predicted among non-blacks MDRD (S/P/Bld) [Vol rate/Area] mL/min/{1.73_m2} >=60 [facility] Hematocrit Auto (Bld) [Volum e fraction]on 08-01-2023 Hematocrit (Bld) [Volume fraction] 38.8 % 36.0-48.0 [facility] Hemoglobin [Mass/volume] in Bloodon 08-01-2023 Hemoglobin (Bld) [Mass/Vol] 13.1 g/dL 12.0-16.0 [facility] Laboratory - Chemistry and C hemistry - challengeon 08-01-2023 Calcium [Mass/Vol] 9.2 mg/dL 8.5-10.1 [facility] Chloride [Moles/Vol] 103 mmol/L 98-107 [facility] CO2 [Moles/Vol] 25.5 mmol/L 21.0-32.0 [facility] Creatinine [Mass/Vol] 0.78 mg/dL 0.55-1.02 [facility] Free T4 [Mass/Vol] 0.95 ng/dL 0.76-1.46 [facility] GFR/1.73 sq M.predicted MDRD (S/P/Bld) [Vol rate/Area] mL/min/{1.73_m2} >=60 [facility] Glucose [Mass/Vol] 100 mg/dL 74-106 [facility] Potassium [Moles/Vol] 3.9 mmol/L 3.5-5.1 [facility] Sodium [Moles/Vol] 137 mmol/L 136-145 [facility] TSH Qn 1.067 m[IU]/L 0.358-3.74 0 [facility] Urea nitrogen [Mass/Vol] 12.0 mg/dL 7.0-18.0 [facility] Urea nitrogen/Creatinine [Mass ratio] 15.4 mg/mg [facility] Laboratory - Hematology and Cell countson 08-01-2023 Immature granulocytes/100 WBC (Bld) 0.3 % 0.0-0.5 [facility] Leukocytes [#/volume] correc dave for nucleated erythrocytes in Blood by Automated counon 08-01-2023 WBC corrected for nucl RBC Auto (Bld) [#/Vol] 7.0 10 3/uL 4.0-11.0 [facility] Lymphocytes Auto (Bld) [#/Vo l]on 08-01-2023 Lymphocytes (Bld) [#/Vol] 2.4 10 3/uL 1.2-3.8 [facility] Lymphocytes/100 WBC Auto (Bl d)on 08-01-2023 Lymphocytes/100 WBC (Bld) 34.4 % 20.5-60.0 [facility] MCH Auto (RBC) [Entitic mass ]on 08-01-2023 MCH (RBC) [Entitic mass] 29.6 pg 26.7-34.0 [facility] MCHC Auto (RBC) [Mass/Vol]on 08-01-2023 MCHC (RBC) [Mass/Vol] 33.8 g/dL 29.9-35.2 [facility] MCV Auto (RBC) [Entitic vol] on 08-01-2023 MCV (RBC) [Entitic vol] 87.8 fL 81.0-99.0 [facility] Monocytes Auto (Bld) [#/Vol] on 08-01-2023 Monocytes (Bld) [#/Vol] 0.5 10 3/uL 0.3-0.8 [facility] Monocytes/100 WBC Auto (Bld) on 08-01-2023 Monocytes/100 WBC (Bld) 7.4 % 1.7-12.0 [facility] Neutrophils Auto (Bld) [#/Vo l]on 08-01-2023 Neutrophils (Bld) [#/Vol] 3.9 10 3/uL 1.4-6.5 [facility] Neutrophils/100 WBC Auto (Bl d)on 08-01-2023 Neutrophils/100 WBC (Bld) 55.7 % 43.0-75.0 [facility] No Panel Informationon 07-31 Eosinophils # (Auto) 0.1 10 3/uL 0.0-0.7 [facility] Immature Granulocyte # (Auto) 0.02 10 3/uL 0.00-0.03 [facility] Platelet mean volume Auto (B ld) [Entitic vol]on 08-01-2023 Platelet mean volume (Bld) [Entitic vol] 9.7 fL 9.5-13.5 [facility] Platelets Auto (Bld) [#/Vol] on 08-01-2023 Platelets (Bld) [#/Vol] 231 10 3/uL 150-450 [facility] RBC Auto (Bld) [#/Vol]on RBC (Bld) [#/Vol] 4.42 10 6/uL 4.20-5.40 [facility] Serum or plasma anion gap de terminationon 08-01-2023 Anion gap [Moles/Vol] 12.4 mmol/L [facility] Office Visiton 07-07-2023 Follow-up visit [id number] Ada Kirkland 1990 F Date Provider Department Center 07/07/2023 Soraida-GERSON SOTO CARD [facility] Family History Problem Relation Age of Onset Heart attack Father 44 Coronary artery disease Father Clotting disorder Father Family Status - Relation Status Age at Father Alive Level of Service:19559 MS OFFICE/OUTPATIENT ESTABLISHED LOW MDM 20 MIN Reason for Visit and Comments: Edema [[id number]] Palpitations [[id number]] Normal [facility] Office Visiton 03-03-2023 Follow-up visit [id number] Ada Kirkland Phillip 1990 F Date Provider Department Center 03/03/2023 CRISTIAN ERVIN RADHA [facility] Family History Problem Relation Age of Onset Heart attack Father 44 Coronary artery disease Father Clotting disorder Father Family Status - Relation Status Age at Father Alive Level of Service:57199 MS OFFICE/OUTPATIENT ESTABLISHED MOD MDM 30 MIN Normal [facility] Tilt tableOrdered By: Nadiya bonner on 02-27-2023 BP (Initial Tilt) 125/97 mmHg BON [employer] Phone: BP (Max BP) 139/92 mmHg BON [employer] Phone: [phone] BP (Max Heart Rate) 83/41 mmHg BON [employer] Phone: BP (Min BP) 83/41 mmHg BON [employer] Phone: BP (Min Heart Rate) 111/82 mmHg BON S [employer] Phone: BP (Supine) 131/52 bpm [employer]ON [employer] Phone: [phone] Heart rate 72 /min bpm BON [employer] Work Phone: Heart rate 112 /min bpm [facility]ON [employer] Work Phone: Minutes (Max BP) 22 BON [employer] Work Phone: Minutes (Max Heart Rate) 23 BON [employer] Phone: Minutes (Min BP) 23 BON SECO [employer] Work Phone: Minutes (Min Heart Rate) 6 BON [employer] Work Phone: [phone] Rhythm (Initial Tilt) SR [employer] Phone: Rhythm (Max BP) [facility] [employer] Work Phone: Rhythm (Max Heart Rate) [facility] [employer] Work Phone: Rhythm (Min BP) [facility] [employer] Work Phone: Rhythm (Min Heart Rate) SR MIGUEL [employer] Work Phone: Rhythm (Supine) SR MIGUEL RYAN [employer] Work Phone: BON IVORY [employer] Work Phone: Tilt tableon 02-27-2023 Tilt Study [...] with their primary care physician and/ or piano refinisher as previously scheduled. [facility] CV CPACS Radiology Study observation (narrative) [facility] Vital signsOrdered By: Nadiya douglass on 02-27-2023 Heart rate 78 /min bpm [facility] Work Phone: Heart rate 122 /min bpm [facility] [employer] Work Phone: Automated erythrocytes count in urine sediment (number/area)Ordered By: Enrique Lucas on 01-20-2023 RBC Auto (Urine sed) [#/Area] 10-19 [HPF] 0-4 [facility] Automated leukocytes count i n urine sediment (number/area)Ordered By: Enrique Lucas on 01-20-2023 WBC Auto (Urine sed) [#/Area] 5-9 [HPF] 0-4 [facility] Basophils Auto (Bld) [#/Vol] Ordered By: Enrique Lucas on 01-20-2023 Basophils (Bld) [#/Vol] 0.1 10*3/uL 0.0-0.2 [facility] Basophils/100 WBC Auto (Bld) Ordered By: Enrique Lucas on 01-20-2023 Basophils/100 WBC (Bld) 0.7 % . [facility] Bilirubin Test strip Ql (U)O rdered By: Enrique Lucas on 01-20-2023 Bilirubin Ql (U) Negative Negative [facility] C reactive protein [Mass/vol ume] in Serum or PlasmaOrdered By: Enrique Lucas on 01-20-2023 CRP [Mass/Vol] 0.5 mg/dL 0.0-0.5 [facility] C-Reactive Proteinon 023 C-Reactive Protein 0.5 mg/dL Normal 0.0-0.5 [facility] Comment on above: Result Comment: PERF ORMED BY: [place] [address] PATHOLOGIST SPAR MACHINE OPERATOR HELPER OLIMPIA MORA M.D. Performed By: #### B MP #### [address] Color Auto (U)Ordered By: Marybeth Lucas on 01-20-2023 Color (U) Yellow Yellow [facility] Complement C3on 01-20-2023 Complement C3 182 mg/dL High 82-167 [facility] Comment on above: Result Comment: Perf ormed at: - [facility] [phone] Curriculum Advisory Teacher: Chris Urabn PhD, Phone: [phone] Performed By: #### B MP #### [address] Complement C4on 01-20-2023 Complement C4 29 mg/dL Normal 12-38 [facility] Comment on above: Result Comment: PERF ORMED BY: [facility] [address] [place] [address] PATHOLOGIST SPAR MACHINE OPERATOR HELPER OLIMPIA MORA M.D. Performed By: #### B MP #### [address] Complete Blood Count Auto Di ffon 01-20-2023 Basophils (Bld) [#/Vol] 0.1 10*3/uL Normal 0.0-0.2 [facility] Comment on above: Performed By: #### B MP #### [address] Basophils/100 WBC (Bld) 0.7 % Normal . [facility] Comment on above: Performed By: #### B MP #### [address] Eosinophils (Bld) [#/Vol] 0.2 10*3/uL Normal 0.0-0.45 [facility] Comment on above: Performed By: #### B MP #### [address] Eosinophils/100 WBC (Bld) 3.0 % Normal . [facility] Comment on above: Performed By: #### B MP #### [address] Erythrocyte distribution width (RBC) [Ratio] 13.0 % Normal 11.9-15.3 [facility] Comment on above: Performed By: #### B MP #### [address] Hematocrit (Bld) [Volume fraction] 41.5 % Normal 34.0-46.4 [facility] Comment on above: Performed By: #### B MP #### [address] Hemoglobin (Bld) [Mass/Vol] 14.0 g/dL Normal 11.8-15.4 [facility] Comment on above: Performed By: #### B MP #### [address] Lymphocytes (Bld) [#/Vol] 2.6 10*3/uL Normal 1.00-4.8 [facility] Comment on above: Performed By: #### B MP #### [address] Lymphocytes/100 WBC (Bld) 35.4 % Normal . [facility] Comment on above: Performed By: #### B MP #### [address] MCH (RBC) [Entitic mass] 30.2 pg Normal 24.7-34.3 [facility] Comment on above: Performed By: #### B MP #### [address] MCV (RBC) [Entitic vol] 89.4 fL Normal 80-100 [facility] Comment on above: Performed By: #### B MP #### [address] Mean Corpuscular HGB Conc 33.7 g/dL Normal 32.0-35.0 [facility] Comment on above: Performed By: #### B MP #### [address] Monocytes (Bld) [#/Vol] 0.4 10*3/uL Normal 0.0-0.8 [facility] Comment on above: Performed By: #### B MP #### [address] Monocytes/100 WBC (Bld) 5.3 % Normal . [facility] Comment on above: Performed By: #### B MP #### [address] Neutrophils (Bld) [#/Vol] 4.1 10*3/uL Normal 1.8-7.7 [facility] Comment on above: Performed By: #### B MP #### [address] Neutrophils/100 WBC (Bld) 55.6 % Normal . [facility] Comment on above: Performed By: #### B MP #### [address] NRBC% 0.1 /100{WBC} Normal 0-0.5 [facility] Comment on above: Performed By: #### B MP #### [address] Platelet mean volume (Bld) [Entitic vol] 8.5 fL Normal 6.3-10.7 [facility] Comment on above: Performed By: #### B MP #### [facility] [address] Platelets (Bld) [#/Vol] 253 10*3/uL Normal 150-450 [facility] Comment on above: Performed By: #### B MP #### [facility] [address] RBC (Bld) [#/Vol] 4.65 10*6/uL Normal 3.60-5.00 [facility] Comment on above: Performed By: #### B MP #### [address] WBC (Bld) [#/Vol] 7.4 10*3/uL Normal 3.8-11.6 [facility] Comment on above: Performed By: #### B MP #### [address] Creatinineon 01-20-2023 Creatinine [Mass/Vol] 0.70 mg/dL Normal 0.60-1.20 [facility] Comment on above: Performed By: #### C 4, C3 #### [facility] , #### ADDONUAPLUS, CBC, CRP, CUU, CREAT, ESR #### [address] GFR/1.73 sq M.predicted MDRD (S/P/Bld) [Vol rate/Area] mL/min/{1.73_m2} [facility] Comment on above: Performed By: #### C 4, C3 #### [facility] , #### ADDONUAPLUS, CBC, CRP, CUU, CREAT, ESR #### [address] Creatinine [Mass/volume] in Serum or PlasmaOrdered By: Enrique Lucas on 01-20-2023 Creatinine [Mass/Vol] 0.70 mg/dL 0.60-1.20 [facility] Dipstick and Microscopicon 1 03-22-2022 Appearance (U) Clear Normal Clear [facility] Comment on above: Order Comment: Name Collection Type:: Clean-Voided Midstream Performed By: #### C 4, C3 #### [facility] , #### ADDONUAPLUS, CBC, CRP, CUU, CREAT, ESR #### [facility] [address] [place] [address] Bacteria,Urine 1+ High None Seen [facility] Comment on above: Order Comment: Name Collection Type:: Clean-Voided Midstream Performed By: #### C 4, C3 #### [facility] , #### ADDONUAPLUS, CBC, CRP, CUU, CREAT, ESR #### [facility] [address] [place] [address] Bilirubin,Urine Negative Normal Negative [facility] Comment on above: Order Comment: Name Collection Type:: Clean-Voided Midstream Performed By: #### C 4, C3 #### [facility] , #### ADDONUAPLUS, CBC, CRP, CUU, CREAT, ESR #### [facility] [address] [place] [address] Color (U) Yellow Normal Yellow [facility] Comment on above: Order Comment: Name Collection Type:: Clean-Voided Midstream Performed By: #### C 4, C3 #### [facility] , #### ADDONUAPLUS, CBC, CRP, CUU, CREAT, ESR #### [facility] [address] [place] [address] Glucose Ql (U) Normal Normal Normal [facility] Comment on above: Order Comment: Name Collection Type:: Clean-Voided Midstream Performed By: #### C 4, C3 #### [facility] , #### ADDONUAPLUS, CBC, CRP, CUU, CREAT, ESR #### [facility] [address] [place] [address] Hyaline Casts,Urine None Seen Normal 0-8 [facility] Comment on above: Order Comment: Name Collection Type:: Clean-Voided Midstream Result Comment: PERF ORMED BY: [place] [address] PATHOLOGIST SPAR MACHINE OPERATOR HELPER OLIMPIA MORA M.D. Performed By: #### C 4, C3 #### [facility] , #### ADDONUAPLUS, CBC, CRP, CUU, CREAT, ESR #### [facility] [address] [place] [address] Ketones Ql (U) Negative Normal Negative [facility] Comment on above: Order Comment: Name Collection Type:: Clean-Voided Midstream Performed By: #### C 4, C3 #### [facility] , #### ADDONUAPLUS, CBC, CRP, CUU, CREAT, ESR #### [address] Leukocyte esterase Test strip Ql (U) 2+ High Negative [facility] Comment on above: Order Comment: Name Collection Type:: Clean-Voided Midstream Performed By: #### C 4, C3 #### [facility] , #### ADDONUAPLUS, CBC, CRP, CUU, CREAT, ESR #### [facility] [address] [place] [address] Nitrite,Urine Negative Normal Negative [facility] Comment on above: Order Comment: Name Collection Type:: Clean-Voided Midstream Performed By: #### C 4, C3 #### [facility] , #### ADDONUAPLUS, CBC, CRP, CUU, CREAT, ESR #### [facility] [address] [place] [address] Occult Blood,Urine Trace High Negative [facility] Comment on above: Order Comment: Name Collection Type:: Clean-Voided Midstream Performed By: #### C 4, C3 #### [facility] , #### ADDONUAPLUS, CBC, CRP, CUU, CREAT, ESR #### [address] pH (U) 6.0 [pH] Normal 5.0-9.0 [facility] Comment on above: Order Comment: Name Collection Type:: Clean-Voided Midstream Performed By: #### C 4, C3 #### [facility] , #### ADDONUAPLUS, CBC, CRP, CUU, CREAT, ESR #### [address] Protein,Urine Negative Normal Negative [facility] Comment on above: Order Comment: Name Collection Type:: Clean-Voided Midstream Performed By: #### C 4, C3 #### [facility] , #### ADDONUAPLUS, CBC, CRP, CUU, CREAT, ESR #### [address] RBC,Urine 10-19 High 0-4 [facility] Comment on above: Order Comment: Name Collection Type:: Clean-Voided Midstream Performed By: #### C 4, C3 #### [facility] , #### ADDONUAPLUS, CBC, CRP, CUU, CREAT, ESR #### [address] Specificy [place],Urine 1.016 Normal 1.001-1.03 0 [facility] Comment on above: Order Comment: Name Collection Type:: Clean-Voided Midstream Performed By: #### C 4, C3 #### [facility] , #### ADDONUAPLUS, CBC, CRP, CUU, CREAT, ESR #### [address] Squamous Epithelial Cell,Urine 3-4 High 0-2 [facility] Comment on above: Order Comment: Name Collection Type:: Clean-Voided Midstream Performed By: #### C 4, C3 #### [facility] , #### ADDONUAPLUS, CBC, CRP, CUU, CREAT, ESR #### [address] Urobilinogen,Urine Normal Normal Normal [facility] Comment on above: Order Comment: Name Collection Type:: Clean-Voided Midstream Performed By: #### C 4, C3 #### [facility] , #### ADDONUAPLUS, CBC, CRP, CUU, CREAT, ESR #### [address] WBC,Urine 5-9 High 0-4 [facility] Comment on above: Order Comment: Name Collection Type:: Clean-Voided Midstream Performed By: #### C 4, C3 #### [facility] , #### ADDONUAPLUS, CBC, CRP, CUU, CREAT, ESR #### [address] Eosinophils Auto (Bld) [#/Vo l]Ordered By: Enrique Luacs on 01-20-2023 Eosinophils (Bld) [#/Vol] 0.2 10*3/uL 0.0-0.45 [facility] Eosinophils/100 WBC Auto (Bl d)Ordered By: Enrique Lucas on 01-20-2023 Eosinophils/100 WBC (Bld) 3.0 % . [facility] Erythrocyte Sedimentation Ra jeniffer 01-20-2023 ESR (Bld) [Velocity] 13 mm/h Normal 0-19 [facility] Comment on above: Result Comment: PERF ORMED BY: [place] [address] PATHOLOGIST SPAR MACHINE OPERATOR HELPER OLIMPIA MORA M.D. Performed By: #### B MP #### [address] Erythrocyte distribution wid th Auto (RBC) [Ratio]Ordered By: Enrique Lucas on 01-20-2023 Erythrocyte distribution width (RBC) [Ratio] 13.0 % 11.9-15.3 [facility] Erythrocyte sedimentation ra te by Photometric methodOrdered By: Enrique Lucas on 01-20-2023 ESR Photometric method (Bld) [Velocity] 13 mm/hr 0-19 [facility] Hematocrit Auto (Bld) [Volum e fraction]Ordered By: Enrique Lucas on 01-20-2023 Hematocrit (Bld) [Volume fraction] 41.5 % 34.0-46.4 [facility] Hemoglobin [Mass/volume] in BloodOrdered By: Enrique Lucas on 01-20-2023 Hemoglobin (Bld) [Mass/Vol] 14.0 g/dL 11.8-15.4 [facility] Ketones Auto test strip (U) [Mass/Vol]Ordered By: Enrique Lucas on 01-20-2023 Ketones (U) [Mass/Vol] Negative Negative [facility] - UrinalysisOrder ed By: Enrique Lucas on 01-20-2023 Hyaline casts LM Ql (Urine sed) None seen [LPF] 0-8 [facility] Leukocytes [#/volume] correc dave for nucleated erythrocytes in Blood by Automated counOrdered By: Enrique Lucas on 01-20-2023 WBC corrected for nucl RBC Auto (Bld) [#/Vol] 7.4 10*3/uL 3.8-11.6 [facility] Lymphocytes Auto (Bld) [#/Vo l]Ordered By: Enrique Luacs on 01-20-2023 Lymphocytes (Bld) [#/Vol] 2.6 10*3/uL 1.00-4.8 [facility] Lymphocytes/100 WBC Auto (Bl d)Ordered By: Enrique Lucas on 01-20-2023 Lymphocytes/100 WBC (Bld) 35.4 % . [facility] MCH Auto (RBC) [Entitic mass ]Ordered By: Enrique Lucas on 01-20-2023 MCH (RBC) [Entitic mass] 30.2 pg 24.7-34.3 [facility] MCHC Auto (RBC) [Mass/Vol]Or dered By: Enrique Lucas on 01-20-2023 MCHC (RBC) [Mass/Vol] 33.7 g/dL 32.0-35.0 [facility] MCV Auto (RBC) [Entitic vol] Ordered By: Enrique Lucas on 01-20-2023 MCV (RBC) [Entitic vol] 89.4 fL 80-100 [facility] Monocytes Auto (Bld) [#/Vol] Ordered By: Enrique Lucas on 01-20-2023 Monocytes (Bld) [#/Vol] 0.4 10*3/uL 0.0-0.8 [facility] Monocytes/100 WBC Auto (Bld) Ordered By: Enrique Lucas on 01-20-2023 Monocytes/100 WBC (Bld) 5.3 % . [facility] Neutrophils Auto (Bld) [#/Vo l]Ordered By: Enrique Lucas on 01-20-2023 Neutrophils (Bld) [#/Vol] 4.1 10*3/uL 1.8-7.7 [facility] Neutrophils/100 WBC Auto (Bl d)Ordered By: Enrique Lucas on 01-20-2023 Neutrophils/100 WBC (Bld) 55.6 % . [facility] Nitrite Test strip Ql (U)Ord ered By: Enrique Lucas on 01-20-2023 Nitrite Ql (U) Negative Negative [facility] No Panel InformationOrdered By: Enrique Lucas on 01-20-2023 Estimated GFR (CKD-EPI) > 60.0 mL/Min [facility] Creatinine Clearance (Chem N/A [facility] Nucleated erythrocytes [Pres ence] in Blood by Automated countOrdered By: Enrique Lucas on 01-20-2023 Nucleated RBC Auto Ql (Bld) 0.1 /100{WBC} 0-0.5 [facility] Platelet mean volume Auto (B ld) [Entitic vol]Ordered By: Enrique Lucas on 01-20-2023 Platelet mean volume (Bld) [Entitic vol] 8.5 fL 6.3-10.7 [facility] Platelets Auto (Bld) [#/Vol] Ordered By: Enrique Lucas on 01-20-2023 Platelets (Bld) [#/Vol] 253 10*3/uL 150-450 [facility] Protein Auto test strip (U) [Mass/Vol]Ordered By: Enrique Lucas on 01-20-2023 Protein (U) [Mass/Vol] Negative Negative [facility] RBC Auto (Bld) [#/Vol]Ordere d By: Enrique Lucas on 01-20-2023 RBC (Bld) [#/Vol] 4.65 10*6/uL 3.60-5.00 [facility] Specific gravity Auto test s trip (U) [Rel density]Ordered By: Enrique Lucas on 01-20-2023 Specific gravity (U) [Rel density] 1.016 1.001-1.03 0 [facility] Squamous epithelial cells de tection in urine sediment by light microscopyOrdered By: Enrique Lucas on 01-20-2023 Epithelial cells.squamous LM Ql (Urine sed) 3-4 [HPF] 0-2 [facility] Urine Cultureon 01-20-2023 Bacteria identified Cx Nom (U) 20,000 colonies/ml mixed bacterial skin contaminants 2 Days PERFORMED BY: [place] [address] PATHOLOGIST SPAR MACHINE OPERATOR HELPER OLIMPIA MORA M.D. [facility] Comment on above: Performed By: #### B MP #### [address] Urine bacteria detection by automated methodOrdered By: Enrique Lucas on 01-20-2023 Bacteria Auto Ql (U) 1+ None Seen [facility] Urine clarity by refractomet ry automatedOrdered By: Enrique Lucas on 01-20-2023 Clarity Refractometry automated (U) Clear Clear [facility] Urine glucose measurement by automated test strip (mass/volume)Ordered By: Enrique Lucas on 01-20-2023 Glucose Auto test strip (U) [Mass/Vol] Normal mg/dL Normal [facility] Urine hemoglobin detection b y automated test stripOrdered By: Enrique Lucas on 01-20-2023 Hemoglobin Auto test strip Ql (U) Trace Negative [facility] Urine leukocyte esterase det ection by automated test stripOrdered By: Enrique Lucas on 01-20-2023 Leukocyte esterase Auto test strip Ql (U) 2+ Negative [facility] Urobilinogen Auto test strip (U) [Mass/Vol]Ordered By: Enrique Lucas on 01-20-2023 Urobilinogen (U) [Mass/Vol] Normal mg/dL Normal [facility] WBC Auto (Bld) [#/Vol]Ordere d By: Enrique Lucas on 01-20-2023 WBC (Bld) [#/Vol] 7.4 10*3/uL 3.8-11.6 [facility] pH Auto test strip (U)Ordere d By: Enrique Lucas on 01-20-2023 pH (U) 6.0 [pH] 5.0-9.0 [facility] HCG ( test) IA.rapi d Ql (U)Ordered By: LITA BLACKMAN on 12-29-2022 HCG ( test) Ql (U) Negative [facility] HCG,Urineon 12-29-2022 Beta HCG ( test) Ql (U) Negative Normal [facility] Comment on above: Result Comment: PERF ORMED BY: [facility] [address] [place] [address] PATHOLOGIST SPAR MACHINE OPERATOR HELPER OLIMPIA MORA M.D. Performed By: #### U HCG #### [facility] [address] 12-29-2022 L ------ Specimen: [id number] Received: 12/29/22 Status: FADIA Espinosa Num: [id number] Spec Type: Surgical Subm Dr: Dasha Garcia, Tissues: A Uterus w/ or w/o tubes ovaries except neoplastic or prolap (CERVIX, DARIO TU Procedures: , Gross/Micro L5 Age/ Patient Sex Location Account Attending Physician Morgan Kirkland 32/F [place] [id number] Dasha Garcia DO SPEC NUM: [id number] RECD: 12/29/22 STATUS: FADIA ESPINOSA NUM: [id number] STEVAN: 12/29/22 [facility] [address]: Dasha Garcia DO ENTERED: 12/29/22 HIEN [...] left sided pelvic pain menorrhagia adenomyosis Specimen: [id number] Received: 12/29/22 Status: FADIA Espinosa Num: [id number] Spec Type: Surgical Subm Dr: Dasha Garcia DO Tissues: A Uterus w/ or w/o tubes ovaries except neoplastic or prolap (CERVIX, DARIO TU Procedures: , Gross/Micro L5 Patient: Morgan Kirkland [id number] (Continued) Specimen: [id number] Received: 12/29/22 (Continued) Signed (signature on file) Daniel Okeefe MD 12/30/222016 Specimen: [id number] Received: 12/29/22 Status: FADIA Espinosa Num: [id number] Spec Type: Surgical Subm Dr: Dasha Garcia, DO Tissues: A Uterus w/ or w/o tubes ovaries except neoplastic or prolap (CERVIX, DARIO TU Procedures: , Gross/Micro L5 Patient: Morgan Kirkland [id number] (Continued) Specimen: [id number] Received: 12/29/22 (Continued) Gross Description Received in [...] has a pinpoint lumen on cut section. Superintendent Operating sections are submitted in 8 cassettes as follows: A1 - Anterior cervix A2 - Posterior cervix A3-A4 - Anterior endomyometrium A5-A6 - Posterior endomyometrium A7 - Right fallopian tube A8 - Left fallopian tube Microscopic Description Eight H E slides reviewed. The microscopic examination confirms the diagnosis. CPT Codes 04117 Specimen: [id number] Received: 12/29/22 Status: FADIA Jesús Num: [id number] Spec Type: Surgical Subm Dr: Dasha Garcia, DO Tissues: A Uterus w/ or w/o tubes ovaries except neoplastic or prolap (CERVIX, DARIO TU Procedures: HE/12, Gross/Micro L (more content not included)... Normal [facility] Activated partial thrombopla stin time (aPTT) in platelet poor plasma by coagulation aOrdered By: Dasha Garcia on 12-15-2022 aPTT Coag (PPP) [Time] 28.2 s 25.1-36.5 [facility] Comment on above: A hematocrit value g reater than 55% may lead to inaccurate results in coagulation testing. Patients having hematocrit values >55% require a special collection tube for coagulation studies. Please contact the laboratory at [phone] for redraw instructions. Basic Metabolic Panelon 10-0 Anion gap [Moles/Vol] 8.5 mmol/L Normal 6.0-15.0 [facility] Comment on above: Performed By: #### B MP #### [facility] [address] Calcium [Mass/Vol] 9.4 mg/dL Normal 8.6-10.3 [facility] Comment on above: Result Comment: PERF ORMED BY: [place] [address] PATHOLOGIST SPAR MACHINE OPERATOR HELPER OLIMPIA MORA M.D. Performed By: #### B MP #### [facility] [address] Chloride [Moles/Vol] 105 mmol/L Normal 98-107 [facility] Comment on above: Performed By: #### B MP #### [facility] [address] CO2 [Moles/Vol] 28.6 mmol/L Normal 21.0-31.0 [facility] Comment on above: Performed By: #### B MP #### [facility] [address] Creatinine [Mass/Vol] 0.86 mg/dL Normal 0.60-1.20 [facility] Comment on above: Performed By: #### B MP #### [facility] [address] [place] [address] [place] GFR/1.73 sq M.predicted MDRD (S/P/Bld) [Vol rate/Area] mL/min/{1.73_m2} Normal [facility] Comment on above: Performed By: #### B MP #### [facility] [address] [place] [address] [place] Glucose [Mass/Vol] 90 mg/dL Normal 70-100 [facility] Comment on above: Result Comment: [place] Glucose Reference Range is dependent on time and content of last meal. Glucose of more than 200 mg/dL in a nonstressed, ambulatory subject supports the diagnosis of Diabetes Mellitus. ADA recommended reference range Performed By: #### B MP #### [facility] [address] Potassium [Moles/Vol] 4.1 mmol/L Normal 3.5-5.1 [facility] Comment on above: Performed By: #### B MP #### [facility] [address] Sodium [Moles/Vol] 138 mmol/L Normal 136-145 [facility] Comment on above: Performed By: #### B MP #### [facility] [address] Urea nitrogen [Mass/Vol] 9 mg/dL Normal 7-25 [facility] Comment on above: Performed By: #### B MP #### [facility] [address] Basophils Auto (Bld) [#/Vol] Ordered By: Dasha Garcia on 12-15-2022 Basophils (Bld) [#/Vol] 0.0 10*3/uL 0.0-0.2 [facility] Basophils/100 WBC Auto (Bld) Ordered By: Dasha Garcia on 12-15-2022 Basophils/100 WBC (Bld) 0.6 % . [facility] Calcium [Mass/volume] in Ser um or PlasmaOrdered By: Dasha Garcia on 12-15-2022 Calcium [Mass/Vol] 9.4 mg/dL 8.6-10.3 [facility] Carbon dioxide, total [Moles /volume] in Serum or PlasmaOrdered By: Dasha Garcia on 12-15-2022 CO2 [Moles/Vol] 28.6 mmol/L 21.0-31.0 [facility] Chloride [Moles/volume] in S misael or PlasmaOrdered By: Dasha Garcia on 12-15-2022 Chloride [Moles/Vol] 105 mmol/L 98-107 [facility] Complete Blood Count Auto Di ffon 12-15-2022 Basophils (Bld) [#/Vol] 0.0 10*3/uL Normal 0.0-0.2 [facility] Comment on above: Result Comment: PERF ORMED BY: [place] [id number] PATHOLOGIST SPAR MACHINE OPERATOR HELPER OLIMPIA MORA M.D. Performed By: #### C BC #### [address] Basophils/100 WBC (Bld) 0.6 % Normal . [facility] Comment on above: Performed By: #### C BC #### [address] Eosinophils (Bld) [#/Vol] 0.2 10*3/uL Normal 0.0-0.45 [facility] Comment on above: Performed By: #### C BC #### [address] Eosinophils/100 WBC (Bld) 1.9 % Normal . [facility] Comment on above: Performed By: #### C BC #### [address] Erythrocyte distribution width (RBC) [Ratio] 13.0 % Normal 11.9-15.3 [facility] Comment on above: Performed By: #### C BC #### [address] Hematocrit (Bld) [Volume fraction] 40.0 % Normal 34.0-46.4 [facility] Comment on above: Performed By: #### C BC #### [place] [address] [place] Hemoglobin (Bld) [Mass/Vol] 13.6 g/dL Normal 11.8-15.4 [facility] Comment on above: Performed By: #### C BC #### [address] Lymphocytes (Bld) [#/Vol] 2.3 10*3/uL Normal 1.00-4.8 [facility] Comment on above: Performed By: #### C BC #### [address] Lymphocytes/100 WBC (Bld) 28.8 % Normal . [facility] Comment on above: Performed By: #### C BC #### [facility] [address] MCH (RBC) [Entitic mass] 30.0 pg Normal 24.7-34.3 [facility] Comment on above: Performed By: #### C BC #### [facility] [address] MCV (RBC) [Entitic vol] 88.1 fL Normal 80-100 [facility] Comment on above: Performed By: #### C BC #### [address] Mean Corpuscular HGB Conc 34.0 g/dL Normal 32.0-35.0 [facility] Comment on above: Performed By: #### C BC #### [address] Monocytes (Bld) [#/Vol] 0.4 10*3/uL Normal 0.0-0.8 [facility] Comment on above: Performed By: #### C BC #### [place] [address] [place] Monocytes/100 WBC (Bld) 5.1 % Normal . [facility] Comment on above: Performed By: #### C BC #### [address] Neutrophils (Bld) [#/Vol] 5.2 10*3/uL Normal 1.8-7.7 [facility] Comment on above: Performed By: #### C BC #### [address] Neutrophils/100 WBC (Bld) 63.6 % Normal . [facility] Comment on above: Performed By: #### C BC #### [address] NRBC% 0.1 /100{WBC} Normal 0-0.5 [facility] Comment on above: Performed By: #### C BC #### [address] [place] [address] [place] Platelet mean volume (Bld) [Entitic vol] 8.2 fL Normal 6.3-10.7 [facility] Comment on above: Performed By: #### C BC #### [facility] [address] Platelets (Bld) [#/Vol] 235 10*3/uL Normal 150-450 [facility] Comment on above: Performed By: #### C BC #### [facility] [address] RBC (Bld) [#/Vol] 4.53 10*6/uL Normal 3.60-5.00 [facility] Comment on above: Performed By: #### C BC #### [address] WBC (Bld) [#/Vol] 8.1 10*3/uL Normal 3.8-11.6 [facility] Comment on above: Performed By: #### C BC #### [address] Creatinine [Mass/volume] in Serum or PlasmaOrdered By: Dasha Garcia on 12-15-2022 Creatinine [Mass/Vol] 0.86 mg/dL 0.60-1.20 [facility] Eosinophils Auto (Bld) [#/Vo l]Ordered By: Dasha Garcia on 12-15-2022 Eosinophils (Bld) [#/Vol] 0.2 10*3/uL 0.0-0.45 [facility] Eosinophils/100 WBC Auto (Bl d)Ordered By: Dasha Garcia on 12-15-2022 Eosinophils/100 WBC (Bld) 1.9 % . [facility] Erythrocyte distribution wid th Auto (RBC) [Ratio]Ordered By: Dasha Garcia on 12-15-2022 Erythrocyte distribution width (RBC) [Ratio] 13.0 % 11.9-15.3 [facility] Glucose [Mass/volume] in Ser um or PlasmaOrdered By: Dasha Garcia on 12-15-2022 Glucose [Mass/Vol] 90 mg/dL 70-100 [facility] Comment on above: ADA recommended refe rence rangeRandom Glucose Reference Range is dependent on time and content of last meal. Glucose of more than 200 mg/dL in a nonstressed, ambulatory subject supports the diagnosis of Diabetes Mellitus. Hematocrit Auto (Bld) [Volum e fraction]Ordered By: Dasha Garcia on 12-15-2022 Hematocrit (Bld) [Volume fraction] 40.0 % 34.0-46.4 [facility] Hemoglobin [Mass/volume] in BloodOrdered By: Dasha Garcia on 12-15-2022 Hemoglobin (Bld) [Mass/Vol] 13.6 g/dL 11.8-15.4 [facility] INR in Platelet poor plasma by Coagulation assayOrdered By: Dasha Garcia on 12-15-2022 INR Coag (PPP) [Relative time] 0.9 {INR} [facility] Comment on above: INR Therapeutic Rang [...] RBC Auto (Bld) [#/Vol] 8.1 10*3/uL 3.8-11.6 [facility] Lymphocytes Auto (Bld) [#/Vo l]Ordered By: Dasha Garcia on 12-15-2022 Lymphocytes (Bld) [#/Vol] 2.3 10*3/uL 1.00-4.8 [facility] Lymphocytes/100 WBC Auto (Bl d)Ordered By: Dasha Garcia on 12-15-2022 Lymphocytes/100 WBC (Bld) 28.8 % . [facility] MCH Auto (RBC) [Entitic mass ]Ordered By: Dasha Garcia on 12-15-2022 MCH (RBC) [Entitic mass] 30.0 pg 24.7-34.3 [facility] MCHC Auto (RBC) [Mass/Vol]Or dered By: Dasha Garcia on 12-15-2022 MCHC (RBC) [Mass/Vol] 34.0 g/dL 32.0-35.0 [facility] MCV Auto (RBC) [Entitic vol] Ordered By: Dasha Garcia on 12-15-2022 MCV (RBC) [Entitic vol] 88.1 fL 80-100 [facility] Monocytes Auto (Bld) [#/Vol] Ordered By: Dasha Garcia on 12-15-2022 Monocytes (Bld) [#/Vol] 0.4 10*3/uL 0.0-0.8 [facility] Monocytes/100 WBC Auto (Bld) Ordered By: Dasha Garcia on 12-15-2022 Monocytes/100 WBC (Bld) 5.1 % . [facility] Neutrophils Auto (Bld) [#/Vo l]Ordered By: Dasha Garcia on 12-15-2022 Neutrophils (Bld) [#/Vol] 5.2 10*3/uL 1.8-7.7 [facility] Neutrophils/100 WBC Auto (Bl d)Ordered By: Dasha Garcia on 12-15-2022 Neutrophils/100 WBC (Bld) 63.6 % . [facility] No Panel InformationOrdered By: Dasha Garcia on 12-15-2022 Estimated GFR (CKD-EPI) > 60.0 mL/Min [facility] Creatinine Clearance (Chem N/A [facility] Nucleated erythrocytes [Pres ence] in Blood by Automated countOrdered By: Dasha Garcia on 12-15-2022 Nucleated RBC Auto Ql (Bld) 0.1 /100{WBC} 0-0.5 [facility] PST Type and Screenon 2022 ABO and Rh group Nom (Bld) Blood group A Rh(D) positive Normal [facility] Comment on above: Order Comment: Date of Surgery: 20221229 Partial Thromboplastin Timeo n 12-15-2022 aPTT Coag (Bld) [Time] 28.2 s Normal 25.1-36.5 [facility] Comment on above: Result Comment: A he matocrit value greater than 55% may lead to inaccurate results in coagulation testing. Patients having hematocrit values >55% require a special collection tube for coagulation studies. Please contact the laboratory at [phone] for redraw instructions. PERFORMED BY: [address] [id number] PATHOLOGIST SPAR MACHINE OPERATOR HELPER OLIMPIA MORA M.D. Performed By: #### P T, PTT #### [facility] [address] [place] [id number] [facility] Platelet mean volume Auto (B ld) [Entitic vol]Ordered By: Dasha Garcia on 12-15-2022 Platelet mean volume (Bld) [Entitic vol] 8.2 fL 6.3-10.7 [facility] Platelets Auto (Bld) [#/Vol] Ordered By: Dasha Garcia on 12-15-2022 Platelets (Bld) [#/Vol] 235 10*3/uL 150-450 [facility] Potassium [Moles/volume] in Serum or PlasmaOrdered By: Dasha Garcia on 12-15-2022 Potassium [Moles/Vol] 4.1 mmol/L 3.5-5.1 [facility] Prothrombin Time INRon 12-15 INR Coag (PPP) [Relative time] 0.9 {INR} Normal [facility] Comment on above: Result Comment: INR [...] Performed By: #### P T, PTT #### [facility] [address] [place] [id number] [facility] PT Coag (PPP) [Time] 11.3 s Normal 9.0-12.9 [facility] Comment on above: Result Comment: A he matocrit value greater than 55% may lead to inaccurate results in coagulation testing. Patients having hematocrit values >55% require a special collection tube for coagulation studies. Please contact the laboratory at [phone] for redraw instructions. Performed By: #### P T, PTT #### [facility] [id number] [facility] Prothrombin time (PT)Ordered By: Dasha Garcia on 12-15-2022 PT Coag (PPP) [Time] 11.3 s 9.0-12.9 [facility] Comment on above: A hematocrit value g reater than 55% may lead to inaccurate results in coagulation testing. Patients having hematocrit values >55% require a special collection tube for coagulation studies. Please contact the laboratory at [phone] for redraw instructions. RBC Auto (Bld) [#/Vol]Ordere d By: Dasha Garcia on 12-15-2022 RBC (Bld) [#/Vol] 4.53 10*6/uL 3.60-5.00 [facility] Serum or plasma anion gap de terminationOrdered By: Dasha Garcia on 12-15-2022 Anion gap [Moles/Vol] 8.5 mmol/L 6.0-15.0 [facility] Sodium [Moles/volume] in Ser um or PlasmaOrdered By: Dasha Garcia on 12-15-2022 Sodium [Moles/Vol] 138 mmol/L 136-145 [facility] Urea nitrogen [Mass/volume] in Serum or PlasmaOrdered By: Dasha Garcia on 12-15-2022 Urea nitrogen [Mass/Vol] 9 mg/dL 7-25 [facility] WBC Auto (Bld) [#/Vol]Ordere d By: Dasha Garcia on 12-15-2022 WBC (Bld) [#/Vol] 8.1 10*3/uL 3.8-11.6 [facility] CALCULI, URINARYon 3 2,8 Dihydroxyadenine Normal [facility] Comment on above: Performed By: #### C ALCULI #### [facility] [address] [address] [address] Lela Okeefe Ammonium Acid Urate Normal [facility] Comment on above: Performed By: #### C ALCULI #### [facility] [address] [address] [address] Lela Okeefe Bilirubin Ql (U) Normal [facility] Comment on above: Performed By: #### C ALCULI #### [facility] [address] [address] [address] Lela Okeefe Ca Oxalate Dihydrate 60 % [facility] Comment on above: Performed By: #### C ALCULI #### [facility] [address] [address] [address] Lela Okeefe CaHPO4 (Brushite) [facility] Comment on above: Performed By: #### C ALCULI #### [facility] [address] [address] [address] Lela Okeefe Calcium Bilirubinate [facility] Comment on above: Performed By: #### C ALCULI #### [facility] [address] [address] [address] Lela Okeefe Calcium Carbonate [facility] Comment on above: Performed By: #### C ALCULI #### [facility] [address] [address] [address] Lela Okeefe Calcium Oxalate Monohydrate 30 % [facility] Comment on above: Performed By: #### C ALCULI #### [facility] [address] [address] [address] Lela Okeefe Calcium Palmitate [place] [facility] Comment on above: Performed By: #### C ALCULI #### [facility] [address] [address] [address] Lela Okeefe Calcium Phosphate [facility] Comment on above: Performed By: #### C ALCULI #### [facility] [address] [address] [address] Lela Okeefe Calcium Stearate [facility] Comment on above: Performed By: #### C ALCULI #### [facility] [address] [address] [address] Lela Okeefe Carbonate Apatite [facility] Comment on above: Performed By: #### C ALCULI #### [facility] [address] [address] [address] Lela Okeefe Cellular Material [facility] Comment on above: Performed By: #### C ALCULI #### [facility] [address] [address] [address] Lela Okeefe Cholesterol [facility] Comment on above: Performed By: #### C ALCULI #### [facility] [address] [address] [address] Lela Okeefe Color (U) Conroy [facility] Comment on above: Performed By: #### C ALCULI #### [facility] [address] [address] [address] Lela Okeefe Comment Comment Normal [facility] Comment on above: Result Comment: Calc ium phosphate (hydroxyl form) includes hydroxyapatite, amorphous calcium phosphate, and whitlockite. Hydroxyapatite is the most common of the calcium phosphate salts found in human kidney stones. Performed By: #### C ALCULI #### [facility] [address] [place] [address] Dr. Lela Okeefe Result Comment: Calc ulus received wet. Wet calculi must be dried before analysis, which delays reporting of results. Leaving calculi wet (such as water, saline, blood, urine) may lead to changes in composition. Comment: Comment Normal [facility] Comment on above: Result Comment: Renita quintanilla questions regarding Calculi Analysis contact [facility] at: [phone]. Performed By: #### C ALCULI #### [facility] [address] [place] [address] Dr. Lela Okeefe Composition Comment [facility] Comment on above: Result Comment: Perc entage (Represents the % composition) Performed By: #### C ALCULI #### [facility] [address] [place] [address] Dr. Lela Okeefe Cystine [facility] Comment on above: Performed By: #### C ALCULI #### [facility] [address] [place] [address] Dr. Lela Okeefe Disclaimer: Comment [facility] Comment on above: Result Comment: This test was developed and its performance characteristics determined by [employer]. It has not been cleared or approved by the Food and Drug Administration. Performed By: #### C ALCULI #### [facility] [address] [place] [address] Dr. Lela Okeefe Dried Blood Normal [facility] Comment on above: Performed By: #### C ALCULI #### [facility] [address] [place] [address] Dr. Lela Okeefe Drug or Metabolite Normal [facility] Comment on above: Performed By: #### C ALCULI #### [facility] [address] [place] [address] Dr. Lela Okeefe Hydroxyapatite 10 % Normal [facility] Comment on above: Performed By: #### C ALCULI #### [facility] [address] [place] [address] Dr. Lela Okeefe Mg NH4 PO4 (Struvite) Normal [facility] Comment on above: Performed By: #### C ALCULI #### [facility] [address] [place] [address] Dr. Lela Okeefe MgHPO4 (Newberyite) [facility] Comment on above: Performed By: #### C ALCULI #### [facility] [address] [place] [address] Dr. Lela Okeefe Other component(s) Normal [facility] Comment on above: Performed By: #### C ALCULI #### [facility] [address] [place] [address] Dr. Lela Okeefe PDF . Normal [facility] Comment on above: Performed By: #### C ALCULI #### [facility] [address] [place] [address] Dr. Lela Okeefe Photo Comment [facility] Comment on above: Result Comment: Phot ograph will follow under a separate cover Performed By: #### C ALCULI #### [facility] [address] [place] [address] Dr. Lela Okeefe Please note: Comment Normal [facility] Comment on above: Result Comment: Calc mirza report will follow via computer, mail or counselor marriage and family delivery. Performed By: #### C ALCULI #### [facility] [address] [address] [address] Lela Okeefe Size 5x5 [facility] Comment on above: Result Comment: Simon le piece received. Performed By: #### C ALCULI #### [facility] [address] [address] [address] Lela Okeefe Sodium Acid Urate [facility] Comment on above: Performed By: #### C ALCULI #### [facility] [address] [address] [address] Lela Okeefe Source Comment [facility] Comment on above: Result Comment: Righ t Ureter Performed By: #### C ALCULI #### [facility] [address] [place] [address] Dr. Lela Okeefe Triamterene [facility] Comment on above: Performed By: #### C ALCULI #### [facility] [address] [address] [address] Lela Okeefe Uric Acid [facility] Comment on above: Performed By: #### C ALCULI #### [facility] [address] [address] [address] Lela Okeefe Uric Acid Dihydrate [facility] Comment on above: Performed By: #### C ALCULI #### [facility] [address] [place] [address] Dr. Lela Okeefe Weight 37 mg [facility] Comment on above: Performed By: #### C ALCULI #### [facility] [address] [address] [address] Lela Okeefe Xanthine [facility] Comment on above: Performed By: #### C ALCULI #### [facility] [address] [place] [address] Dr. Lela Okeefe PREG HCG QUALon 07-17-2022 , QUAL Negative Normal NEGATIVE [facility] Comment on above: Performed By: #### C BC #### [facility] [address] [address] [address] Lela Okeefe CBC AUTO DIFFon 07-11-2022 BASO # 0.0 103/ul Normal 0.0-0.1 [facility] Comment on above: Performed By: #### C BC #### [facility] [address] [place] [address] Dr. Lela Okeefe Basophils/100 WBC (Bld) 0.5 % Normal 0.2-2.0 [facility] Comment on above: Performed By: #### C BC #### [facility] [address] [place] [address] Dr. Lela Okeefe EO # 0.1 103/ul Normal 0.0-0.7 [facility] Comment on above: Performed By: #### C BC #### [facility] [address] [place] [address] Dr. Lela Okeefe Eosinophils/100 WBC (Bld) 1.2 % Normal 0.9-7.0 [facility] Comment on above: Performed By: #### C BC #### [facility] [address] [place] [address] Dr. Lela Okeefe Erythrocyte distribution width (RBC) [Ratio] 12.3 % Normal 11.0-15.0 [facility] Comment on above: Performed By: #### C BC #### [facility] [address] [place] [address] Dr. Lela Okeefe Hematocrit (Bld) [Volume fraction] 41.7 % Normal 36.0-48.0 [facility] Comment on above: Performed By: #### C BC #### [facility] [address] [place] [address] Dr. Lela Okeefe Hemoglobin (Bld) [Mass/Vol] 14.1 g/dL Normal 12.0-16.0 [facility] Comment on above: Performed By: #### C BC #### [facility] [address] [place] [address] Dr. Lela Okeefe IG # 0.01 10e3/ul Normal 0.00-0.03 [facility] Comment on above: Performed By: #### C BC #### [facility] [address] [place] [address] Dr. Lela Okeefe IG % 0.2 % Normal 0.0-0.5 [facility] Comment on above: Performed By: #### C BC #### [facility] [address] [place] [address] Dr. Lela Okeefe LYMPH # 2.1 103/ul Normal 1.2-3.8 [facility] Comment on above: Performed By: #### C BC #### [facility] [address] [place] [address] Dr. Lela Okeefe Lymphocytes/100 WBC (Bld) 36.5 % Normal 20.5-60.0 [facility] Comment on above: Performed By: #### C BC #### [facility] [address] [place] [address] Dr. Lela Okeefe MANUAL DIFF REQ NO Normal [facility] Comment on above: Performed By: #### C BC #### [facility] [address] [place] [address] Dr. Lela Okeeef MCH (RBC) [Entitic mass] 30.2 pg Normal 26.7-34.0 [facility] Comment on above: Performed By: #### C BC #### [facility] [address] [place] [address] Dr. Lela Okeefe MCHC (RBC) [Mass/Vol] 33.8 g/dL Normal 29.9-35.2 [facility] Comment on above: Performed By: #### C BC #### [facility] [address] [place] [address] Dr. Lela Okeefe MCV (RBC) [Entitic vol] 89.3 fL Normal 81.0-99.0 [facility] Comment on above: Performed By: #### C BC #### [facility] [address] [place] [address] Dr. Lela Okeefe MONO # 0.5 103/ul Normal 0.3-0.8 [facility] Comment on above: Performed By: #### C BC #### [facility] [address] [place] [address] Dr. Lela Okeefe Monocytes/100 WBC (Bld) 8.4 % Normal 1.7-12.0 [facility] Comment on above: Performed By: #### C BC #### [facility] [address] [place] [address] Dr. Lela Okeefe NEUT # 3.0 103/ul Normal 1.4-6.5 [facility] Comment on above: Performed By: #### C BC #### [facility] [address] [place] [address] Dr. Lela Okeefe Neutrophils/100 WBC (Bld) 53.2 % Normal 43.0-75.0 [facility] Comment on above: Performed By: #### C BC #### [facility] [address] [place] [address] Dr. Lela Okeefe Platelet mean volume (Bld) [Entitic vol] 9.7 fL Normal 9.5-13.5 [facility] Comment on above: Performed By: #### C BC #### [facility] [address] [place] [address] Dr. Lela Okeefe PLT 234 103/ul Normal 150-450 [facility] Comment on above: Performed By: #### C BC #### [facility] [address] [place] [address] Dr. Lela Okeefe RBC 4.67 106/ul Normal 4.20-5.40 [facility] Comment on above: Performed By: #### C BC #### [facility] [address] [place] [address] Dr. Lela Okeefe WBC 5.6 103/ul Normal 4.0-11.0 [facility] Comment on above: Performed By: #### C BC #### [facility] [address] [place] [address] Dr. Lela Okeefe PROF CHEM 8 (BAS METB)on Anion gap [Moles/Vol] 12.5 mmol/L Normal [facility] Comment on above: Performed By: #### C BC #### [facility] [address] [place] [address] Dr. Lela Okeefe Calcium [Mass/Vol] 9.1 mg/dL Normal 8.5-10.1 [facility] Comment on above: Performed By: #### C BC #### [facility] [address] [place] [address] Dr. Lela Okeefe Chloride [Moles/Vol] 105 mmol/L Normal 98-107 [facility] Comment on above: Performed By: #### C BC #### [facility] [address] [place] [address] Dr. Lela Okeefe CO2 [Moles/Vol] 28.7 mmol/L Normal 21.0-32.0 [facility] Comment on above: Performed By: #### C BC #### [facility] Laboratory [address] [place] [address] Dr. Lela Okeefe Creatinine [Mass/Vol] 0.73 mg/dL Normal 0.55-1.02 [facility] Comment on above: Performed By: #### C BC #### [facility] [address] [place] [address] Dr. Lela Okeefe EGFR-AF MALTESE >60 Normal >=60 [facility] Comment on above: Performed By: #### C BC #### [facility] [address] [place] [address] Dr. Lela Okeefe EGFR-NON AF MALTESE >60 Normal >=60 [facility] Comment on above: Performed By: #### C BC #### [facility] [address] [place] [address] Dr. Lela Okeefe Glucose [Mass/Vol] 81 mg/dL Normal 74-106 [facility] Comment on above: Performed By: #### C BC #### [facility] [address] [place] [address] Dr. Lela Okeefe Potassium [Moles/Vol] 4.2 mmol/L Normal 3.5-5.1 [facility] Comment on above: Performed By: #### C BC #### [facility] [address] [place] [address] Dr. Lela Okeefe Sodium [Moles/Vol] 142 mmol/L Normal 136-145 [facility] Comment on above: Performed By: #### C BC #### [facility] [address] [place] [address] Dr. Lela Okeefe Urea nitrogen [Mass/Vol] 11.0 mg/dL Normal 7.0-18.0 [facility] Comment on above: Performed By: #### C BC #### [facility] [address] [place] [address] Dr. Lela Okeefe Urea nitrogen/Creatinine [Mass ratio] 15.1 mg/mg Normal [facility] Comment on above: Performed By: #### C BC #### [facility] [address] [place] [address] Dr. Lela Okeefe PROTIMEon 07-11-2022 INR Coag (PPP) [Relative time] 0.97 {INR} Normal [facility] Comment on above: Performed By: #### C BC #### [facility] [address] [place] [address] Dr. Lela Okeefe INR GUIDELINES SEE BELOW Normal [facility] Comment on above: Result Comment: BAIRON RED INR: 2.0 - 3.0 CONDITIONS NOT LISTED BELOW 2.5 - 3.5 FOR PROSTHETIC HEART VALVE REPLACEMENT 2.5 - 3.5 RECURRENT THROMBOSIS Performed By: #### C BC #### [facility] [address] [place] [address] Dr. Lela Okeefe PT Coag (PPP) [Time] 10.3 s Normal 9.0-11.6 [facility] Comment on above: Performed By: #### C BC #### [facility] [address] [place] [address] Dr. Lela Okeefe PTTon 07-11-2022 aPTT Coag (Bld) [Time] 27.9 s Normal 22.3-36.2 Th e [facility] Comment on above: Performed By: #### C BC #### [facility] [address] [place] [address] ABD/PELVIS WO CONon [...] IRIS FUNEZ Date: 2022-06-02 15:16 Normal [facility] XR KUB 1 VIEWon 05-20-2022 XR [...] ZAHRA MCCLENDON Date: 2022-05-20 14:39 Normal [facility] C3 and C4 COMPLEMENTon 04-15 Complement C3, Serum 191 mg/dL Critically high 82-167 [facility] Comment on above: Performed By: #### C BC #### [facility] [address] [address] [address] Lela Okeefe Complement C4, Serum 38 mg/dL Normal 12-38 [facility] Comment on above: Performed By: #### C BC #### [facility] [address] [place] [address] Dr. Lela Okeefe T3, TOTAL (TRIIODOTHYRONINE) on 04-13-2022 T3, TOTAL 109 ng/dL Normal 71-180 [facility] Comment on above: Performed By: #### C BC #### [facility] [address] [place] [address] Dr. Lela Okeefe US THYROIDon 04-13-2022 US [...] ZAHRA MCCLENDON Date: 2022-04-13 20:29 Normal [facility] CBC AUTO DIFFon 04-12-2022 BASO # 0.1 103/ul Normal 0.0-0.1 [facility] Comment on above: Performed By: #### C BC #### [facility] [address] [place] [address] Dr. Lela Okeefe Basophils/100 WBC (Bld) 0.6 % Normal 0.2-2.0 [facility] Comment on above: Performed By: #### C BC #### [facility] [address] [place] [address] Dr. Lela Okeefe EO # 0.0 103/ul Normal 0.0-0.7 [facility] Comment on above: Performed By: #### C BC #### [facility] [address] [place] [address] Dr. Lela Okeefe Eosinophils/100 WBC (Bld) 0.4 % Critically low 0.9-7.0 [facility] Comment on above: Performed By: #### C BC #### [facility] [address] [place] [address] Dr. Lela Okeefe Erythrocyte distribution width (RBC) [Ratio] 11.9 % Normal 11.0-15.0 [facility] Comment on above: Performed By: #### C BC #### [facility] [address] [place] [address] Dr. Lela Okeefe Hematocrit (Bld) [Volume fraction] 41.1 % Normal 36.0-48.0 [facility] Comment on above: Performed By: #### C BC #### [facility] [address] [place] [address] Dr. Lela Okeefe Hemoglobin (Bld) [Mass/Vol] 14.9 g/dL Normal 12.0-16.0 [facility] Comment on above: Performed By: #### C BC #### [facility] [address] [place] [address] Dr. Lela Okeefe IG # 0.03 10e3/ul Normal 0.00-0.03 [facility] Comment on above: Performed By: #### C BC #### [facility] [address] [place] [address] Dr. Lela Okeefe IG % 0.3 % Normal 0.0-0.5 [facility] Comment on above: Performed By: #### C BC #### [facility] [address] [place] [address] Dr. Lela Okeefe LYMPH # 1.1 103/ul Critically low 1.2-3.8 [facility] Comment on above: Performed By: #### C BC #### [facility] [address] [place] [address] Dr. Lela Okeefe Lymphocytes/100 WBC (Bld) 12.6 % Critically low 20.5-60.0 [facility] Comment on above: Performed By: #### C BC #### [facility] [address] [place] [address] Dr. Lela Okeefe MANUAL DIFF REQ NO Normal [facility] Comment on above: Performed By: #### C BC #### [facility] [address] [address] [address] Lela Okeefe MCH (RBC) [Entitic mass] 29.6 pg Normal 26.7-34.0 [facility] Comment on above: Performed By: #### C BC #### [facility] [address] [place] [address] Dr. Lela Okeefe MCHC (RBC) [Mass/Vol] 36.3 g/dL Critically high 29.9-35.2 [facility] Comment on above: Performed By: #### C BC #### [facility] [address] [place] [address] Dr. Lela Okeefe MCV (RBC) [Entitic vol] 81.7 fL Normal 81.0-99.0 [facility] Comment on above: Performed By: #### C BC #### [facility] [address] [place] [address] Dr. Lela Okeefe MONO # 0.9 103/ul Critically high 0.3-0.8 [facility] Comment on above: Performed By: #### C BC #### [facility] [address] [place] [address] Dr. Lela Okeefe Monocytes/100 WBC (Bld) 10.0 % Normal 1.7-12.0 [facility] Comment on above: Performed By: #### C BC #### [facility] [address] [place] [address] Dr. Lela Okeefe NEUT # 6.8 103/ul Critically high 1.4-6.5 [facility] Comment on above: Performed By: #### C BC #### [facility] [address] [place] [address] Dr. Lela Okeefe Neutrophils/100 WBC (Bld) 76.1 % Critically high 43.0-75.0 [facility] Comment on above: Performed By: #### C BC #### [facility] [address] [place] [address] Dr. Lela Okeefe Platelet mean volume (Bld) [Entitic vol] 9.5 fL Normal 9.5-13.5 [facility] Comment on above: Performed By: #### C BC #### [facility] [address] [place] [address] Dr. Lela Okeefe PLT 232 103/ul Normal 150-450 [facility] Comment on above: Performed By: #### C BC #### [facility] [address] [place] [address] Dr. Lela Okeefe RBC 5.03 106/ul Normal 4.20-5.40 [facility] Comment on above: Performed By: #### C BC #### [facility] [address] [place] [address] Dr. Lela Okeefe WBC 9.0 103/ul Normal 4.0-11.0 [facility] Comment on above: Performed By: #### C BC #### [facility] [address] [place] [address] Dr. Lela Okeefe CPKon 04-12-2022 CK [Catalytic activity/Vol] 43 U/L Normal 26-192 [facility] Comment on above: Performed By: #### C BC #### [facility] [address] [place] [address] Dr. Lela Okeefe CREATININEon 04-12-2022 Creatinine [Mass/Vol] 0.85 mg/dL Normal 0.55-1.02 [facility] Comment on above: Performed By: #### C BC #### [facility] [address] [place] [address] Dr. Lela Okeefe EGFR-AF MALTESE >60 Normal >=60 [facility] Comment on above: Performed By: #### C BC #### [facility] [address] [place] [address] Dr. Lela Okeefe EGFR-NON AF MALTESE >60 Normal >=60 [facility] Comment on above: Performed By: #### C BC #### [facility] [address] [place] [address] Dr. Lela Okeefe SED RATE PERALTAERGRENon 2022 SED RATE 53 mm/hr Critically high <=20 [facility] Comment on above: Performed By: #### C BC #### [facility] [address] [place] [address] Dr. Lela Okeefe UA RANDOM W/MICROSCOPICon BACTERIA NONE SEEN Normal NONE SEEN [facility] Comment on above: Performed By: #### U AMIC #### [facility] [address] [place] [address] Dr. Lela Okeefe Bilirubin Ql (U) Negative Normal NEGATIVE [facility] Comment on above: Performed By: #### U AMIC #### [facility] [address] [place] [address] Dr. Lela Okeefe CAST NONE SEEN Normal NONE SEEN [facility] Comment on above: Performed By: #### U AMIC #### [facility] [address] [place] [address] Dr. Lela Okeefe Clarity (U) CLEAR Normal CLEAR [facility] Comment on above: Performed By: #### U AMIC #### [facility] [address] [place] [address] Dr. Lela Okeefe Color (U) YELLOW Normal YELLOW [facility] Comment on above: Performed By: #### U AMIC #### [facility] [address] [place] [address] Dr. Lela Okeefe Crystals LM Nom (Urine sed) NONE SEEN Normal NONE SEEN [facility] Comment on above: Performed By: #### U AMIC #### [facility] [address] [place] [address] Dr. Lela Okeefe Epithelial cells LM Ql (Urine sed) FEW Abnormal NONE SEEN /RARE [facility] Comment on above: Performed By: #### U AMIC #### [facility] [address] [place] [address] Dr. Lela Okeefe Glucose Ql (U) Negative Normal NEGATIVE [facility] Comment on above: Performed By: #### U AMIC #### [facility] [address] [place] [address] Dr. Lela Okeefe Hemoglobin Ql (U) Negative Normal NEGATIVE [facility] Comment on above: Performed By: #### U AMIC #### [facility] [address] [place] [address] Dr. Lela Okeefe Ketones Ql (U) Negative Normal NEGATIVE [facility] Comment on above: Performed By: #### U AMIC #### [facility] [address] [place] [address] Dr. Lela Okeefe LEUKOCYTES Negative Normal NEGATIVE [facility] Comment on above: Performed By: #### U AMIC #### [facility] [address] [place] [address] Dr. Lela Okeefe MUCOUS TRACE Abnormal NONE SEEN [facility] Comment on above: Performed By: #### U AMIC #### [facility] [address] [place] [address] Dr. Lela Okeefe Nitrite Ql (U) Negative Normal NEGATIVE [facility] Comment on above: Performed By: #### U AMIC #### [facility] [address] [place] [address] Dr. Lela Okeefe pH (U) 6.0 [pH] Normal 5-9 [facility] Comment on above: Performed By: #### U AMIC #### [facility] [address] [place] [address] Dr. Lela Okeefe RBC 0-2 Normal 0-2 [facility] Comment on above: Performed By: #### U AMIC #### [facility] [address] [place] [address] Dr. Lela Okeefe SPEC GRAVITY 1.020 Normal 1.005-<=1. 025 [facility] Comment on above: Performed By: #### U AMIC #### [facility] [address] [place] [address] Dr. Lela Okeefe UA PROTEIN Negative Normal NEGATIVE/ TRACE [facility] Comment on above: Performed By: #### U AMIC #### [facility] [address] [place] [address] Dr. Lela Okeefe Urobilinogen Qn (U) 0.2 {Fidelia'U}/dL Normal 0.2 - 1. 0 [facility] Comment on above: Performed By: #### U AMIC #### [facility] [address] [place] [address] Dr. Lela Okeefe WBC NONE SEEN Normal NONE SEEN [facility] Comment on above: Performed By: #### U AMIC #### [facility] [address] [place] [address] Dr. Lela Okeefe CBC AUTO DIFFon 04-10-2022 BASO # 0.0 103/ul Normal 0.0-0.1 [facility] Comment on above: Performed By: #### C BC #### [facility] [address] [place] [address] Dr. Lela Okeefe Basophils/100 WBC (Bld) 0.3 % Normal 0.2-2.0 [facility] Comment on above: Performed By: #### C BC #### [facility] [address] [place] [address] Dr. Lela Okeefe EO # 0.0 103/ul Normal 0.0-0.7 [facility] Comment on above: Performed By: #### C BC #### [facility] [address] [place] [address] Dr. Lela Okeefe Eosinophils/100 WBC (Bld) 0.1 % Critically low 0.9-7.0 [facility] Comment on above: Performed By: #### C BC #### [facility] [address] [place] [address] Dr. Lela Okeefe Erythrocyte distribution width (RBC) [Ratio] 11.9 % Normal 11.0-15.0 [facility] Comment on above: Performed By: #### C BC #### [facility] [address] [place] [address] Dr. Lela Okeefe Hematocrit (Bld) [Volume fraction] 46.1 % Normal 36.0-48.0 [facility] Comment on above: Performed By: #### C BC #### [facility] [address] [place] [address] Dr. Lela Okeefe Hemoglobin (Bld) [Mass/Vol] 14.5 g/dL Normal 12.0-16.0 [facility] Comment on above: Performed By: #### C BC #### [facility] [address] [place] [address] Dr. Lela Okeefe IG # 0.01 10e3/ul Normal 0.00-0.03 [facility] Comment on above: Performed By: #### C BC #### [facility] [address] [place] [address] Dr. Lela Okeefe IG % 0.1 % Normal 0.0-0.5 [facility] Comment on above: Performed By: #### C BC #### [facility] [address] [place] [address] Dr. Lela Okeefe LYMPH # 1.1 103/ul Critically low 1.2-3.8 [facility] Comment on above: Performed By: #### C BC #### [facility] [address] [place] [address] Dr. Lela Okeefe Lymphocytes/100 WBC (Bld) 11.7 % Critically low 20.5-60.0 [facility] Comment on above: Performed By: #### C BC #### [facility] [address] [place] [address] Dr. Lela Okeefe MANUAL DIFF REQ NO Normal [facility] Comment on above: Performed By: #### C BC #### [facility] [address] [place] [address] Dr. Lela Okeefe MCH (RBC) [Entitic mass] 29.8 pg Normal 26.7-34.0 [facility] Comment on above: Performed By: #### C BC #### [facility] [address] [place] [address] Dr. Lela Okeefe MCHC (RBC) [Mass/Vol] 31.5 g/dL Normal 29.9-35.2 [facility] Comment on above: Performed By: #### C BC #### [facility] [address] [place] [address] Dr. Lela kOeefe MCV (RBC) [Entitic vol] 94.7 fL Normal 81.0-99.0 [facility] Comment on above: Performed By: #### C BC #### [facility] [address] [place] [address] Dr. Lela Okeefe MONO # 0.8 103/ul Normal 0.3-0.8 [facility] Comment on above: Performed By: #### C BC #### [facility] [address] [place] [address] Dr. Lela Okeefe Monocytes/100 WBC (Bld) 7.9 % Normal 1.7-12.0 [facility] Comment on above: Performed By: #### C BC #### [facility] [address] [place] [address] Dr. Lela Okeefe NEUT # 7.7 103/ul Critically high 1.4-6.5 [facility] Comment on above: Performed By: #### C BC #### [facility] [address] [place] [address] Dr. Lela Okeefe Neutrophils/100 WBC (Bld) 79.9 % Critically high 43.0-75.0 [facility] Comment on above: Performed By: #### C BC #### [facility] [address] [place] [address] Dr. Lela Okeefe Platelet mean volume (Bld) [Entitic vol] 10.2 fL Normal 9.5-13.5 [facility] Comment on above: Performed By: #### C BC #### [facility] [address] [place] [address] Dr. Lela Okeefe PLT 230 103/ul Normal 150-450 [facility] Comment on above: Performed By: #### C BC #### [facility] [address] [place] [address] Dr. Lela Okeefe RBC 4.87 106/ul Normal 4.20-5.40 [facility] Comment on above: Performed By: #### C BC #### [facility] [address] [place] [address] Dr. Lela Okeefe WBC 9.6 103/ul Normal 4.0-11.0 [facility] Comment on above: Performed By: #### C BC #### [facility] [address] [place] [address] Dr. Lela Okeefe FREE T3on 04-10-2022 FREE T3 2.59 pg/mlL Normal 2.18-3.98 [facility] Comment on above: Performed By: #### C BC #### [facility] [address] [place] [address] Dr. Lela Okeefe FREE T4on 04-10-2022 Free T4 [Mass/Vol] 1.00 ng/dL Normal 0.76-1.46 [facility] Comment on above: Performed By: #### F T4 #### [facility] [address] [place] [address] Dr. Lela Okeefe PROF CHEM 8 (BAS METB)on Anion gap [Moles/Vol] 12.3 mmol/L Normal [facility] Comment on above: Performed By: #### B MP, TSH #### [facility] [address] [place] [address] Dr. Lela Okeefe Calcium [Mass/Vol] 9.4 mg/dL Normal 8.5-10.1 [facility] Comment on above: Performed By: #### B PEDRO, TSH #### [facility] [address] [place] [address] Dr. Lela Okeefe Chloride [Moles/Vol] 102 mmol/L Normal 98-107 [facility] Comment on above: Performed By: #### B PEDRO, TSH #### [facility] [address] [place] [address] Dr. Lela Okeefe CO2 [Moles/Vol] 28.3 mmol/L Normal 21.0-32.0 [facility] Comment on above: Performed By: #### B MP, TSH #### [facility] [address] [place] [address] Dr. Lela Okeefe Creatinine [Mass/Vol] 0.77 mg/dL Normal 0.55-1.02 [facility] Comment on above: Performed By: #### B MP, TSH #### [facility] [address] [place] [address] Dr. Lela Okeefe EGFR-AF MALTESE >60 Normal >=60 [facility] Comment on above: Performed By: #### B MP, TSH #### [facility] [address] [place] [address] Dr. Lela Okeefe EGFR-NON AF MALTESE >60 Normal >=60 [facility] Comment on above: Performed By: #### B MP, TSH #### [facility] [address] [place] [address] Dr. Lela Okeefe Glucose [Mass/Vol] 101 mg/dL Normal 74-106 [facility] Comment on above: Performed By: #### B MP, TSH #### [facility] [address] [place] [address] Dr. Lela Okeefe Potassium [Moles/Vol] 4.6 mmol/L Normal 3.5-5.1 [facility] Comment on above: Performed By: #### B MP, TSH #### [facility] [address] [place] [address] Dr. Lela Okeefe Sodium [Moles/Vol] 138 mmol/L Normal 136-145 [facility] Comment on above: Performed By: #### B MP, TSH #### [facility] [address] [place] [address] Dr. Lela Okeefe Urea nitrogen [Mass/Vol] 11.0 mg/dL Normal 7.0-18.0 [facility] Comment on above: Performed By: #### B PEDRO, TSH #### [facility] [address] [place] [address] Dr. Lela Okeefe Urea nitrogen/Creatinine [Mass ratio] 14.3 mg/mg Normal [facility] Comment on above: Performed By: #### B MP, TSH #### [facility] [address] [place] [address] Dr. Lela Okeefe TSHon 04-10-2022 TSH 0.346 uIU/mL Critically low 0.358-3.74 0 [facility] Comment on above: Performed By: #### B MP, TSH #### [facility] [address] [place] [address] Dr. Lela Okeefe ECHOCARDIO M/2D COMPLETEon 1 ECHOCARDIO M/2D COMPLETE Patient: MORGAN KIRKLAND Exam Date: 12/24/2021 : 1990 Gender:F Ordering : ROYER DINH Admission #: [id number] Family : DR DAVID NEWBERRY M.D. Order #: [id number] CLICK HERE TO VIEW EXAM ECHOCARDIOGRAM REPORT [...] M.D. on 12/24/2021 at 15:14 Normal [facility] CBC AUTO DIFFon 11-23-2021 BASO # 0.0 103/ul Normal 0.0-0.1 [facility] Comment on above: Performed By: #### C BC #### [facility] [address] [place] [address] Dr. Lela Okeefe Basophils/100 WBC (Bld) 0.4 % Normal 0.2-2.0 [facility] Comment on above: Performed By: #### C BC #### [facility] [address] [place] [address] Dr. Lela Okeefe EO # 0.1 103/ul Normal 0.0-0.7 [facility] Comment on above: Performed By: #### C BC #### [facility] [address] [place] [address] Dr. Lela Okeefe Eosinophils/100 WBC (Bld) 1.4 % Normal 0.9-7.0 [facility] Comment on above: Performed By: #### C BC #### [facility] [address] [place] [address] Dr. Lela Okeefe Erythrocyte distribution width (RBC) [Ratio] 12.0 % Normal 11.0-15.0 [facility] Comment on above: Performed By: #### C BC #### [facility] [address] [place] [address] Dr. Lela Okeefe Hematocrit (Bld) [Volume fraction] 43.0 % Normal 36.0-48.0 [facility] Comment on above: Performed By: #### C BC #### [facility] [address] [place] [address] Dr. Lela Okeefe Hemoglobin (Bld) [Mass/Vol] 14.4 g/dL Normal 12.0-16.0 [facility] Comment on above: Performed By: #### C BC #### [facility] [address] [place] [address] Dr. Lela Okeefe IG # 0.02 10e3/ul Normal 0.00-0.03 [facility] Comment on above: Performed By: #### C BC #### [facility] [address] [place] [address] Dr. Lela Okeefe IG % 0.3 % Normal 0.0-0.5 [facility] Comment on above: Performed By: #### C BC #### [facility] [address] [place] [address] Dr. Lela Okeefe LYMPH # 2.1 103/ul Normal 1.2-3.8 [facility] Comment on above: Performed By: #### C BC #### [facility] [address] [place] [address] Dr. Lela Okeefe Lymphocytes/100 WBC (Bld) 29.2 % Normal 20.5-60.0 [facility] Comment on above: Performed By: #### C BC #### [facility] [address] [place] [address] Dr. Lela Okeefe MANUAL DIFF REQ NO Normal [facility] Comment on above: Performed By: #### C BC #### [facility] [address] [place] [address] Dr. Lela Okeefe MCH (RBC) [Entitic mass] 29.7 pg Normal 26.7-34.0 [facility] Comment on above: Performed By: #### C BC #### [facility] [address] [place] [address] Dr. Lela Okeefe MCHC (RBC) [Mass/Vol] 33.5 g/dL Normal 29.9-35.2 [facility] Comment on above: Performed By: #### C BC #### [facility] [address] [place] [address] Dr. Lela Okeefe MCV (RBC) [Entitic vol] 88.7 fL Normal 81.0-99.0 [facility] Comment on above: Performed By: #### C BC #### [facility] [address] [place] [address] Dr. Lela Okeefe MONO # 0.5 103/ul Normal 0.3-0.8 [facility] Comment on above: Performed By: #### C BC #### [facility] [address] [place] [address] Dr. Lela Okeefe Monocytes/100 WBC (Bld) 6.9 % Normal 1.7-12.0 [facility] Comment on above: Performed By: #### C BC #### [facility] [address] [place] [address] Dr. Lela Okeefe NEUT # 4.4 103/ul Normal 1.4-6.5 [facility] Comment on above: Performed By: #### C BC #### [facility] [address] [place] [address] Dr. Lela Okeefe Neutrophils/100 WBC (Bld) 61.8 % Normal 43.0-75.0 [facility] Comment on above: Performed By: #### C BC #### [facility] [address] [place] [address] Dr. Lela Okeefe Platelet mean volume (Bld) [Entitic vol] 9.3 fL Critically low 9.5-13.5 [facility] Comment on above: Performed By: #### C BC #### [facility] [address] [place] [address] Dr. Lela Okeefe PLT 239 103/ul Normal 150-450 [facility] Comment on above: Performed By: #### C BC #### [facility] [address] [place] [address] Dr. Lela Okeefe RBC 4.85 106/ul Normal 4.20-5.40 [facility] Comment on above: Performed By: #### C BC #### [facility] [address] [place] [address] Dr. Lela Okeefe WBC 7.1 103/ul Normal 4.0-11.0 [facility] Comment on above: Performed By: #### C BC #### [facility] [address] [place] [address] Dr. Lela Okeefe LIPID PROFILEon 11-23-2021 CHOL-HDL RATIO NORM SEE BELOW Normal [facility] Comment on above: Result Comment: 3.3 - 4.4 LOW RISK 4.4 - 7.1 AVERAGE RISK 7.1 - 11.0 MODERATE RISK >11.0 HIGH RISK Performed By: #### C BC #### [facility] [address] [place] [address] Dr. Lela Okeefe Cholesterol [Mass/Vol] 177 mg/dL Normal <=200 [facility] Comment on above: Performed By: #### C BC #### [facility] [address] [place] [address] Dr. Lela Okeefe Cholesterol in HDL [Mass/Vol] 38 mg/dL Critically low 40-60 [facility] Comment on above: Performed By: #### C BC #### [facility] [address] [place] [address] Dr. Lela Okeefe Cholesterol in LDL [Mass/Vol] 121.6 mg/dL Normal [facility] Comment on above: Performed By: #### C BC #### [facility] [address] [place] [address] Dr. Lela Okeefe Cholesterol.total/Chol esterol in HDL [Mass ratio] 4.7 {ratio} Normal [facility] Comment on above: Performed By: #### C BC #### [facility] [address] [place] [address] Dr. Lela Okeefe HDL NORMAL > or = 60 mg/dl - LO W CARDIOVASCULAR RISK <40 mg/dl - HIGH CARDIOVASCULAR RISK Normal [facility] Comment on above: Performed By: #### C BC #### [facility] [address] [address] [address] Lela Okeefe LDL CALC NORMAL SEE BELOW Normal [facility] Comment on above: Result Comment: <100 mg/dl OPTIMAL 100 - 129 mg/dl NEAR OR ABOVE OPTIMAL 130 - 159 mg/dl BORDERLINE HIGH 160 - 189 mg/dl HIGH >190 mg/dl VERY HIGH Performed By: #### C BC #### [facility] [address] [address] [address] Lela Okeefe Triglyceride [Mass/Vol] 87 mg/dL Normal <=150 [facility] Comment on above: Performed By: #### C BC #### [facility] [address] [address] [address] Lela Okeefe VLDL CALC 17.4 mg/dL Normal [facility] Comment on above: Performed By: #### C BC #### [facility] [address] [place] [address] Dr. Lela Okeefe PROF CHEM 8 (BAS METB)on Anion gap [Moles/Vol] 9.2 mmol/L Normal [facility] Comment on above: Performed By: #### B MP, TSH, LIPID #### [facility] [address] [address] [address] Lela Okeefe Calcium [Mass/Vol] 8.9 mg/dL Normal 8.5-10.1 [facility] Comment on above: Performed By: #### B MP, TSH, LIPID #### [facility] [address] [place] [address] Dr. Lela Okeefe Chloride [Moles/Vol] 105 mmol/L Normal 98-107 [facility] Comment on above: Performed By: #### B MP, TSH, LIPID #### [facility] [address] [address] [address] Lela Okeefe CO2 [Moles/Vol] 28.8 mmol/L Normal 21.0-32.0 [facility] Comment on above: Performed By: #### B MP, TSH, LIPID #### [facility] [address] [address] [address] Lela Okeefe Creatinine [Mass/Vol] 0.77 mg/dL Normal 0.55-1.02 [facility] Comment on above: Performed By: #### B MP, TSH, LIPID #### [facility] [address] [place] [address] Dr. Lela Okeefe EGFR-AF MALTESE >60 Normal >=60 [facility] Comment on above: Performed By: #### B MP, TSH, LIPID #### [facility] [address] [place] [address] Dr. Lela Okeefe EGFR-NON AF MALTESE >60 Normal >=60 [facility] Comment on above: Performed By: #### B MP, TSH, LIPID #### [facility] [address] [place] [address] Dr. Lela Okeefe Glucose [Mass/Vol] 103 mg/dL Normal 74-106 [facility] Comment on above: Performed By: #### B MP, TSH, LIPID #### [facility] [address] [place] [address] Dr. Lela Okeefe Potassium [Moles/Vol] 4.0 mmol/L Normal 3.5-5.1 [facility] Comment on above: Performed By: #### B MP, TSH, LIPID #### [facility] [address] [place] [address] Dr. Lela Okeefe Sodium [Moles/Vol] 139 mmol/L Normal 136-145 [facility] Comment on above: Performed By: #### B MP, TSH, LIPID #### [facility] [address] [place] [address] Dr. Lela Okeefe Urea nitrogen [Mass/Vol] 10.0 mg/dL Normal 7.0-18.0 [facility] Comment on above: Performed By: #### B MP, TSH, LIPID #### [facility] [address] [place] [address] Dr. Lela Okeefe Urea nitrogen/Creatinine [Mass ratio] 13.0 mg/mg Normal [facility] Comment on above: Performed By: #### B MP, TSH, LIPID #### [facility] [address] [place] [address] Dr. Lela Okeefe TSHon 11-23-2021 TSH 1.092 uIU/mL Normal 0.358-3.74 0 [facility] Comment on above: Performed By: #### C #### [facility] [address] [place], [place] [id number] Dr. Lela Okeefe PROGRESSon 03-29-2019 PROGRESS HNO ID: [id number] Author: Jose Olea Service: ? Author Type: Physician Type: Progress Notes Filed: 03/29/2019 10:25 AM Note Text: Patient here for ultrasound. See ultrasound report for details. Jose Olea MD [facility] PROGRESSon 03-15-2019 PROGRESS HNO ID: [id number] Author: Dasha Ibanez Service: ? Author Type: [...] normal. See ultrasound report Dasha Ibanez MD [facility] PROGRESSon 03-01-2019 PROGRESS HNO ID: [id number] Author: Tobias Yang Service: ? Author Type: [...] tab in Epic ? Tobias Yang MD [facility] PROGRESSon 02-16-2019 PROGRESS HNO ID: [id number] Author: Tobias Yang Service: ? Author Type: [...] report available in the Imaging tab in salgomed ? Tobias Yang MD [facility] PROGRESSon 01-31-2019 PROGRESS HNO ID: [id number] Author: Tobias Yang Service: ? Author Type: [...] report available in the Imaging tab in salgomed ? Tobias Yang MD [facility] PROGRESSon 01-18-2019 PROGRESS HNO ID: [id number] Author: Tobias Yang Service: ? Author Type: [...] tab in Epic Tobias Yang MD [facility] Vital Signs Date Time Vital Sign Value Performing Clinician Facility 02-08-2024 08:30-0500 Body height 172.7 cm Joanna Pearsonr [employer] Work Phone: [facility] 02-08-2024 08:30-0500 Body mass index (BMI) [Ratio] 45.31 kg/m2 Joanna Vangiemor [employer] LEAD CONSULTANT Work Phone: [facility] 02-08-2024 08:30-0500 Body weight 135.17 kg Joanna Vangiemor CENTER LEAD CONSULTANT Work Phone: [facility] 02-08-2024 08:30-0500 Diastolic blood pressure 73 mm[Hg] Joanna Vangiemor CENTER LEAD CONSULTANT Work Phone: [facility] 02-08-2024 08:30-0500 Heart rate 65 /min Joanna Vangiemor [employer] LEAD CONSULTANT Work Phone: [facility] 02-08-2024 08:30-0500 Systolic blood pressure 121 mm[Hg] Joanna Vangiemor CENTER LEAD CONSULTANT Work Phone: [facility] 01-29-2024 08:51-0500 Blood Pressure Location Clark CLEMENS [facility] 01-29-2024 08:51-0500 Body temperature 98.6 [degF] Clark CLEMENS [facility] 01-29-2024 08:51-0500 Diastolic blood pressure 83 mm[Hg] Clark CLEMENS [facility] 01-29-2024 08:51-0500 Heart rate 52 /min Clark CLEMENS [facility] 01-29-2024 08:51-0500 Respiratory rate 16 /min Clark CLEMENS [facility] 01-29-2024 08:51-0500 Systolic blood pressure 116 mm[Hg] Clark CLEMENS [facility] 12-04-2023 08:52-0400 Body height 172.72 cm [facility] 12-04-2023 08:52-0400 Body mass index (BMI) [Ratio] 43.7 kg/m2 [facility] 12-04-2023 08:52-0400 Body weight 130.43 kg [facility] 12-04-2023 08:52-0400 Diastolic blood pressure 78 mm[Hg] [facility] 12-04-2023 08:52-0400 Heart rate 70 /min [facility] 12-04-2023 08:52-0400 Respiratory rate 18 /min [facility] 12-04-2023 08:52-0400 SaO2% (BldA) [Mass fraction] 97 % [facility] 12-04-2023 08:52-0400 Systolic blood pressure 113 mm[Hg] [facility] 11-27-2023 08:36-0400 Body mass index (BMI) [Ratio] 43.2 kg/m2 [facility] 11-27-2023 07:28-0400 Body height 172.72 cm [facility] 11-27-2023 07:28-0400 Body weight 129.72 kg [facility] 10-19-2023 15:14-0400 Body height 172.72 cm [facility] 10-19-2023 15:14-0400 Body mass index (BMI) [Ratio] 43.4 kg/m2 [facility] 10-19-2023 15:14-0400 Body weight 129.72 kg [facility] 10-19-2023 15:14-0400 Diastolic blood pressure 69 mm[Hg] [facility] 10-19-2023 15:14-0400 Heart rate 60 /min [facility] 10-19-2023 15:14-0400 Respiratory rate 18 /min [facility] 10-19-2023 15:14-0400 SaO2% (BldA) [Mass fraction] 100 % [facility] 10-19-2023 15:14-0400 Systolic blood pressure 115 mm[Hg] [facility] 09-28-2023 15:34-0400 Body height 172.72 cm [facility] 09-28-2023 15:34-0400 Body mass index (BMI) [Ratio] 43.4 kg/m2 [facility] 09-28-2023 15:34-0400 Body weight 129.72 kg [facility] 09-28-2023 15:34-0400 Diastolic blood pressure 72 mm[Hg] [facility] 09-28-2023 15:34-0400 Heart rate 83 /min [facility] 09-28-2023 15:34-0400 SaO2% (BldA) [Mass fraction] 98 % [facility] 09-28-2023 15:34-0400 Systolic blood pressure 118 mm[Hg] [facility] 09-04-2023 08:03-0400 Body height 172.72 cm [facility] 09-04-2023 08:03-0400 Body mass index (BMI) [Ratio] 43.2 kg/m2 [facility] 09-04-2023 08:03-0400 Body weight 128.82 kg [facility] 09-04-2023 08:03-0400 Diastolic blood pressure 78 mm[Hg] [facility] 09-04-2023 08:03-0400 Heart rate 61 /min [facility] 09-04-2023 08:03-0400 Respiratory rate 16 /min [facility] 09-04-2023 08:03-0400 SaO2% (BldA) [Mass fraction] 98 % [facility] 09-04-2023 08:03-0400 Systolic blood pressure 113 mm[Hg] [facility] 07-24-2023 08:28-0400 Body height 170.18 cm [facility] 07-24-2023 08:28-0400 Body mass index (BMI) [Ratio] 44.1 kg/m2 [facility] 07-24-2023 08:28-0400 Body weight 127.91 kg [facility] 07-24-2023 08:28-0400 Diastolic blood pressure 78 mm[Hg] [facility] 07-24-2023 08:28-0400 Heart rate 63 /min [facility] 07-24-2023 08:28-0400 Systolic blood pressure 114 mm[Hg] [facility] 03-20-2023 08:30-0500 Body height 170.18 cm David Newberry Other [facility] Other 03-20-2023 08:30-0500 Body mass index (BMI) [Ratio] 43.47 kg/m2 David Newberry Other [employer] Other 03-20-2023 08:30-0500 Body weight 125.92 kg David Newberry Other [employer] Other 03-20-2023 08:30-0500 Diastolic blood pressure 74 mm[Hg] David Newberry Other [employer] Other 03-20-2023 08:30-0500 Systolic blood pressure 109 mm[Hg] David Newberry Other [facility] Other 01-23-2023 08:56-0500 Blood Pressure Location Clark MIKY [facility] 01-23-2023 08:56-0500 Diastolic blood pressure 82 mm[Hg] Clark CLEMENS [facility] 01-23-2023 08:56-0500 Heart rate 73 /min Clark CLEMENS [facility] 01-23-2023 08:56-0500 Respiratory rate 16 /min Clark CLEMENS [facility] 01-23-2023 08:56-0500 Systolic blood pressure 124 mm[Hg] Clark CLEMENS [facility] 12-29-2022 12:42-0400 Diastolic blood pressure 74 mm[Hg] MD David Newberry Work Phone: [facility] 12-29-2022 12:42-0400 Heart rate 95 /min MD David Newberry Work Phone: [facility] 12-29-2022 12:42-0400 Respiratory rate 18 /min MD David Newberry Work Phone: [facility] 12-29-2022 12:42-0400 SaO2% (BldA) [Mass fraction] 97 % MD David Newberry Work Phone: [facility] 12-29-2022 12:42-0400 Systolic blood pressure 105 mm[Hg] MD David Newberry Work Phone: [facility] 12-29-2022 09:45-0400 Body temperature 98.6 [degF] MD David Newberry Work Phone: [facility] 12-29-2022 09:07-0400 Inhaled oxygen flow rate 8 L/min MD David Newberry Work Phone: [facility] 12-29-2022 07:18-0400 Body height 170.18 cm MD David Newberry Work Phone: [facility] 12-29-2022 07:18-0400 Body mass index (BMI) [Ratio] 42.3 kg/m2 MD David Newberry Work Phone: [facility] 12-29-2022 07:18-0400 Body weight 122.46 kg MD David Newberry Work Phone: [facility] 05-19-2022 10:18-0500 Blood Pressure Location Clark CLEMENS [facility] 05-19-2022 10:18-0500 Diastolic blood pressure 71 mm[Hg] Clark CLEMENS [facility] 05-19-2022 10:18-0500 Heart rate 51 /min Clark CLEMENS [facility] 05-19-2022 10:18-0500 Respiratory rate 16 /min Clark CLEMENS [facility] 05-19-2022 10:18-0500 Systolic blood pressure 113 mm[Hg] Clark CLEMENS [facility] 04-10-2022 15:00-0500 Body height 170.18 cm David Newberry Other [employer] Other 04-10-2022 15:00-0500 Body mass index (BMI) [Ratio] 36.33 kg/m2 David Newberry Other [employer] Other 04-10-2022 15:00-0500 Body weight 105.24 kg David Newberry Other [employer] Other 04-10-2022 15:00-0500 Diastolic blood pressure 74 mm[Hg] David Newberry Other [employer] Other 04-10-2022 15:00-0500 SaO2% (BldA) [Mass fraction] 97 % David Newberry Other [employer] Other 04-10-2022 15:00-0500 Systolic blood pressure 122 mm[Hg] David Newberry Other [facility] Other Encounters Encounter Date Encounter Type Care Provider Facility Start: 05-06-2024 ambulatory Clark Staplesi ty:[facility] Start: 02-24-2024 ambulatory [facility] Start: 02-16-2024 ambulatory ELICaroline ALLEGRA [facility] Start: 02-08-2024 End: 02-08-2024 Bamboo flowsheet Joanna Potter C[employer] LEAD CONSULTANT Work Phone: [facility] Start: 02-08-2024 End: 02-08-2024 Bamboo flowsheet Joanna Potter CENTER LEAD CONSULTANT Work Phone: [facility] Start: 02-08-2024 End: 02-08-2024 ambulatory JOANNA POTTER Not Available Start: 02-08-2024 End: 02-08-2024 Office outpatient visit 25 minutes Joanna Potter CENTER LEAD CONSULTANT Work Phone: [facility] Comment on above: KRISTA (obstructive sle ep apnea) (Primary Dx); Obesity due to excess calories, unspecified obesity severity; Hypoxia; Hypersomnia Start: 02-05-2024 ambulatory [facility] Start: 01-29-2024 End: 01-29-2024 ambulatory Clark CLEMENS Facility:[facility] Start: 01-29-2024 End: 01-29-2024 Patient encounter procedure [facility] Start: 01-25-2024 ambulatory [facility] Start: 01-14-2024 End: 01-14-2024 ambulatory Clark CLEMENS Facility:[facility] [place] Start: 01-14-2024 End: 01-14-2024 Patient encounter procedure Clark CLEMENS [facility] [place] Start: 12-14-2023 ambulatory [facility] Start: 12-04-2023 End: 12-04-2023 ambulatory [facility] Work Phone: Start: 12-04-2023 End: 12-04-2023 Patient encounter procedure [facility] Physician [facility] Work Phone: Start: 11-27-2023 End: 11-27-2023 ambulatory [facility] Work Phone: Start: 11-27-2023 End: 11-27-2023 Patient encounter procedure [facility] Physician [facility] Work Phone: Start: 11-18-2023 End: 11-18-2023 ambulatory DASHA GARCIA Not Available Start: 10-23-2023 ambulatory [facility] Start: 10-19-2023 End: 10-19-2023 ambulatory [facility] Work Phone: Start: 10-19-2023 End: 10-19-2023 Patient encounter procedure [facility] Work Phone: Start: 09-28-2023 End: 09-28-2023 ambulatory [facility] Work Phone: Start: 09-28-2023 End: 09-28-2023 Patient encounter procedure [facility] Physician [facility] Work Phone: Start: 09-04-2023 End: 09-04-2023 ambulatory [facility] Work Phone: Start: 09-04-2023 End: 09-04-2023 Patient encounter procedure [facility] Physician [facility] Work Phone: Start: 09-03-2023 ambulatory [facility] Start: 08-24-2023 End: 08-24-2023 ambulatory YOUNG SNOW Not Available Start: 08-07-2023 End: 08-07-2023 ambulatory Clark CLEMENS Facility:[facility] Start: 08-07-2023 End: 08-07-2023 Lab Drop off Clark CLEMENS [facility] Start: 08-07-2023 End: 08-07-2023 ambulatory Clark R MIKY Facility: [facility] Start: 08-07-2023 End: 08-07-2023 Patient encounter procedure Clark CLEMENS [facility] Start: 08-01-2023 Non-patient / Non-visit [facility] Physician [facility] Work Phone: Start: 07-27-2023 End: 07-27-2023 ambulatory JOANNALuz POTTER Not Available Start: 07-24-2023 End: 07-24-2023 ambulatory [facility] Work Phone: Start: 07-24-2023 End: 07-24-2023 Patient encounter procedure [facility] Physician [facility] Work Phone: Start: 07-07-2023 End: 07-07-2023 ambulatory GERSON [facility] Start: 03-20-2023 End: 03-20-2023 ambulatory David Newberry Other [facility] Other Start: 03-20-2023 Office outpatient vi sit 15 minutes David Newberry [facility] Start: 03-03-2023 End: 03-03-2023 ambulatory CRISTIAN [facility] Start: 02-27-2023 End: 03-02-2023 ambulatory DAVID NEWBERRY [facility] Start: 02-27-2023 End: 03-01-2023 Subsequent hospital visit by physician [facility] Comment on above: Postural dizziness w ith near syncope Start: 02-10-2023 End: 02-10-2023 ambulatory DASHA GARCIA Not Available Start: 01-23-2023 End: 01-23-2023 Patient encounter procedure Clark R CLEMENS [facility] Start: 01-20-2023 End: 01-20-2023 ambulatory Enrique Lucas Facility:[facility] Start: 01-20-2023 End: 01-20-2023 ambulatory MD David Newberry Work Phone: [facility] Work Phone: Start: 01-20-2023 End: 01-20-2023 Patient encounter procedure MD David Newberry Work Phone: [facility] [address] Work Phone: Start: 12-29-2022 End: 12-29-2022 ambulatory Dashamarcial Garcia Facility:[facility] Start: 12-29-2022 End: 12-29-2022 Admission to same day surgery center MD David Newberry Work Phone: [facility] [place] Start: 12-15-2022 End: 12-15-2022 ambulatory Dasha Garcia Facility:[facility] Start: 12-15-2022 End: 12-15-2022 ambulatory MD David Newberry Work Phone: [facility] Work Phone: Start: 12-15-2022 End: 12-15-2022 Patient encounter procedure MD David Newberry Work Phone: [facility] Work Phone: Start: 10-10-2022 End: 10-10-2022 ambulatory Davdi Newberry Other [employer] Other Start: 10-10-2022 Telephone encounter David Newberry [facility] Start: 07-17-2022 End: 07-17-[address] DAVID NEWBERRY Facility: Start: 07-17-2022 Encounter for other preprocedural examination DR CLARK CLEMENS . [facility] Start: 07-17-2022 Encounter for preprocedural cardiovascular examination DR CLARK CLEMENS . [facility] Start: 07-17-2022 Encounter for preprocedural laboratory examination DR CLARK CLEMENS . [facility] Start: 07-11-2022 End: 07-12-[address] DAVID NEWBERRY Facility:[facility]1 Start: 07-11-2022 End: 07-12-2022 Encounter for preprocedural laboratory examination DR DAVID NEWBERRY Facility:[facility]1 Start: 06-02-2022 End: 06-03-[address] DAVID NEWBERRY Facility:[facility]1 Start: 05-19-2022 End: 05-20-[address] DAVID NEWBERRY Facility:[facility]1 Start: 05-19-2022 End: 05-19-2022 Patient encounter procedure Clark CLEMENS [facility] Start: 05-16-2022 End: 05-16-2022 ambulatory David Newberry Other [employer] Other Start: 05-16-2022 Telephone encounter David Newberry [facility] Start: 05-09-2022 End: 05-09-2022 ambulatory David Newberry Other [employer] Other Start: 05-09-2022 Nursing evaluation o f patient and report David Newberry [facility] Start: 04-25-2022 End: 04-25-2022 ambulatory David Newberry Other [employer] Other Start: 04-25-2022 Telephone encounter David Newberry [facility] Start: 04-23-[address] DAVID NEWBERRY Facil ity:H1 Start: 04-12-2022 End: 04-13-[address] DAVID NEWBERRY Facility:[facility]1 Start: 04-11-2022 End: 04-11-[address] DAVID NEWBERRY [employer] Other Start: 04-11-2022 Telephone encounter David Newberry [facility] Start: 04-10-2022 Office outpatient vi sit 15 minutes David Newberry [facility] Start: 04-10-2022 End: 04-10-[address] AMBIKA SALDAÑA . [facility] Other Start: 01-09-2022 Adult health examination Gabbi Newberry Other [facility] Other Start: 12-24-2021 End: 12-25-2021 ambulatory ROYER DINH Facility:H1 Start: 11-29-2021 Encounter for genera l adult medical examination without abnormal findings DR DAVID NEWBERRY [facility] Start: 11-23-2021 End: 11-24-[address] DAVID [...] collection please use: Cortisol PM: 2.3-11.9Performed at: [facility] [place] [id number] Director: Chris Urban PhD, Phone: [phone] Start: 02-27-2023 Cardiovascular funct ion eval w/tilt table w/mntr Elana Ramirez APRN - CENTER LEAD CONSULTANT Work Phone: Start: 12-29-2022 Total hysterectomy v ia vaginal approach MD David Newberry Work Phone: Start: 12-15-2022 Antibody screen Enrique Ktjosefa Comment on above: Order Comment: Date of Surgery: [id number] Result Comment: PERF ORMED BY: [facility] [address] [place] [address] PATHOLOGIST SPAR MACHINE OPERATOR HELPER OLIMPIA MORA M.D. Start: 10-17-2022 Microscopic observat ion [Identifier] in Cervix by Cyto stain Joanna Potter CENTER LEAD CONSULTANT Work Phone: Start: 07-17-2022 Transurethral cystoscopy Clark MIKY Start: 03-16-2012 Tonsillectomy and adenoidectomy Clark MIKY H/O: hysterectomy S/P laparoscop ic hysterectomy MD David Newberry Work Phone: Laparoscopic-assiste d vaginal hysterectomy Clark MIKY Sleep apnea (finding) Victorino gregoria MIKY Plan of Treatment Date Care Activity Detail Author Start: 06-06-2029 DTaP/Tdap/Td vaccine (2 - Td or Tdap) DTaP/Tdap/Td vaccine (2 - Td or Tdap) [facility] Start: 10-18-2027 Screening for malign ant neoplasm of cervix [facility] Start: 10-17-2025 Screening for malign ant neoplasm of cervix Pap Smear [facility] Start: 01-31-2025 End: 01-31-2025 Patient encounter procedure 01/31/2025 8:20 AM EST Office Visit [facility] [address] [place] [id number] Joanna Potter, IRAJ [address] [place], [place] [facility] Start: 11-25-2024 End: 11-25-2024 Patient encounter procedure 11/25/2024 11:30 AM EDT Office Visit [facility] [address] [place] [address] Dasha Garcia, DO [address] [place] [address] [facility] Start: 11-15-2023 Influenza vaccination Influenza Vacc ine (#1) [facility] Start: 01-20-2023 Bacteria identified in Urine by Culture Urine Culture [facility] Start: 12-29-2022 [facility] Start: 12-29-2022 Hospital admission [facility] Start: 11-14-2022 COVID-19 Vaccine (3 - 2023-24 season) COVID-19 Vaccine ( season) [facility] Start: 10-14-2022 Influenza vaccination Flu vaccine (# 1) [facility] Start: 2020 Screening for malign ant neoplasm of cervix [facility] Start: 12-08-2011 Screening for malign ant neoplasm of cervix Pap smear [facility] Start: 2008 Hepatitis C screening Hepatitis C sc reen [facility] Start: 2005 HIV screening HIV screen [facility] Start: 2002 Depression Screen Depression Screen [facility] Start: 12-08-1991 Varicella vaccine (1 of 2 - 2-dose childhood series) Varicella vaccine (1 of 2 - 2-dose childhood series) [facility] Start: 1990 Hepatitis B vaccine (1 of 3 - 3-dose series) Hepatitis B vaccine (1 of 3 - 3-dose series) [facility] Complement C3 [Mass/volume] in Serum or Plasma [facility] Complement C4 [Mass/volume] in Serum or Plasma [facility] Patient referral [facility] Work Phone: End: 02-27-2023 Tilt table Tilt table CV Cardiac Diagnostics Routine Postural dizziness with near syncope 1 Occurrences starting 02/27/2023 until 02/27/2023 [facility] Work Phone: Comment on above: 1 Occurrences starti ng 02/27/2023 until 02/27/2023 [facility] Immunizations Immunization Date Immunization Notes Care Provider Fa yves 04-25-2020 SARS-CoV-2 (COVID-19 ) mRNA-1273 vaccine Clark CLEMENS [facility] 03-28-2020 SARS-CoV-2 (COVID-19 ) mRNA-1273 vaccine Clark CLEMENS [facility] 06-07-2019 tetanus toxoid, redu ashly diphtheria toxoid, and acellular pertussis vaccine, adsorbed Clark CLEMENS [facility] 07-01-2018 hepatitis B vaccine, adult dosage Clark CLEMENS [facility] 05-21-2018 hepatitis B vaccine, adult dosage Clark CLEMENS [facility] Payers Date Payer Category Payer Managed Care O (unspecified) [employer] [id number] 1990 Unknown [id number] 2.840.1.340495.3.57 9.2.593 1990 Unknown [id number] [id number] 9.2.59 1990 Unknown [id number] 2.16840.1.458363.3.57 9.2.593 1990 Unknown [id number] 2.16840.1.040802.3.57 9.2.59 1990 Unknown [id number] 2.16840.1.832191.3.57 9.2.593 1990 Unknown [id number] 2.16840.1.900519.3.57 9.2.59 1990 Unknown [id number] 2.16.840.1.677084.3.57 9.2.593 1990 Unknown [id number] 2.16.840.1.335559.3.57 9.2.593 1990 Unknown [id number] 2.16.840.1.583716.3.57 9.2.593 1990 Unknown [id number] 2.16.840.1.701477.3.57 9.2.593 1990 Unknown [id number] 2.16.840.1.684439.3.57 9.2.593 1990 Unknown [id number] 2.16.840.1.721204.3.57 9.2.593 1990 Unknown [id number] 2.16.840.1.365580.3.57 9.2.173 1990 Unknown [id number] 2.16.840.1.743845.3.57 9.2.727 1990 Unknown [id number] 2.16.840.1.063906.3.57 9.2.727 1990 Unknown [id number] 2.16.840.1.327750.3.57 9.2.727 1990 Unknown [id number] 2.16.840.1.358439.3.57 9.2.727 1990 Unknown [id number] 2.16.840.1.662271.3.57 9.2.727 1990 Unknown [id number] 2.16.840.1.024625.3.57 9.2.727 1990 Unknown [id number] 2.16.840.1.575327.3.57 9.2.1259 1990 Unknown [id number] 2.16.840.1.671919.3.57 9.2.1259 1990 Unknown [id number] 2.16.840.1.706570.3.57 9.2.1259 1990 Unknown [id number] 2.16.840.1.013476.3.57 9.2.1259 1990 Unknown [id number] 2.16.840.1.334023.3.57 9.2.1259 1959 Private Health Insurance [id number] 1959 Self-pay Private Health Insurance [id number] 2.16.840.1.944163.19 Unknown [id number] 2.16.840.1.482665.3.57 9.2.531 Unknown [id number] 2.16.840.1.662607.3.57 9.2.531 Unknown [id number] 2.16.840.1.556866.3.57 9.2.531 Social History Date Type Detail Facility Unknown if ever smoked [employer] Other Start: 08-24-2023 End: 02-08-2024 Sex Assigned At [facility] Start: 05-19-2022 End: 07-24-2023 Tobacco smoking status Never smoked tobacco (finding) [facility] Tobacco smoking status Never [facility] Start: 1990 Sex Assigned At Female F [facility] Tobacco smoking status INIS Tobacco smoking consumption unknown [facility] Start: 1990 Sex Assigned At Not [facility] file [facility] Start: 07-24-2023 Tobacco use and exposure Smokeless tobacco non-user [facility] Start: 11-18-2023 End: 02-08-2024 Alcoholic beverage intake Ex-drinker (finding) [facility] Start: 08-24-2023 End: 02-08-2024 History of Social function [facility] Start: 08-04-2022 Education 13 [facility] Start: 10-17-2022 Alcohol Comment Caffeine intake: non e [facility] Start: 05-28-2022 Gender identity Identifies as female gender (finding) [facility] Goals Date Patient Goal Desired Activity /State Functional Status Date Assessment Result Facility 01-29-2024 Functional Status N/A [facility] 01-23-2023 Functional Status N/A [facility] 05-19-2022 Functional Status N/A [facility] Clinical Notes 04-10-2022 to 02-16-2024 Note Date & Type Note Facility 02-16-2024 Note Cardiovascular Medic ine [facility] SUBJECTIVE Morgan Kirkland is a 33 y.o. female here for follow-up on her palpitations. HPI PMHx: palpitations s/p LOOP implant 08/21/2022 Patient here for 8 mo follow up Atrial tachycardia, palpitations, and hypertension. Palpitations continue to improve. Overall, she is doing well. She denies any new cardiac complaints or concerns. She states that her lower extremity edema has resolved, and she is not interested in having echo at this time giving her resolution. She denies any chest pain or shortness of breath. She denies any orthopnea, paroxysmal nocturnal dyspnea. Overall, she is doing very well. ----- 03/03/23 Patient has felt better since [...] had a tilt table study done at [facility] this that was a negative study based [...] event monitor in December reviewed by Juan aRmirez, FERTILIZING MACHINE OPERATOR showed sinus tachycardia, atrial arrhythmia. Patient [...] Recurrent UTI Tachycardia Urinary frequency Urinary urgency Verruca vulgaris Postural dizziness with near syncope Adenomyosis History of other genital system and obstetric disorders Menorrhagia S/P laparoscopic hysterectomy Abnormal weight gain ADHD Daytime sleepiness Depression Family history of kidney stones Fatigue Hypersomnia Hypoxia Lower extremity edema Obstructive sleep (more content not included)... [facility] 07-07-2023 Note Patient here c/o int ermittent LE edema. Occurs mostly end of day and resolves by morning. She is now using cpap nightly for KRISTA, and believe it's helping with fatigue. No recent labs or imaging. Review of Systems Cardiovascular: Positive for leg swelling (intermittent) and palpitations. Neurological: Positive for headaches and light-headedness (improving). All other systems reviewed and are negative. [facility] 07-07-2023 Note Cardiovascular Medic ine [facility] SUBJECTIVE Chief Complaint Patient presents with [...] had a tilt table study done at [facility] this that was a negative study based [...] monitor in December reviewed by Juan Ramirez, FERTILIZING MACHINE OPERATOR showed sinus tachycardia, atrial arrhythmia. Patient [...] frequency Urinary urgency (more content not included)... [facility] 03-20-2023 Evaluation note Encounter Date Diagnosis Assessment Notes Mar, Paroxysmal SVT (supraventricul ar tachycardia) (ICD-10 - I47.10) Discussed f/u w cardiology Mar, Daytime somnolence (ICD-10 - R40.0) HST order faxed to [facility] sleep lab. Mar, Morbid (severe) obesity due to excess calories (ICD-10 - E66.01) as above Mar, Body mass index [BMI] 40.0-44.9, adult (ICD-10 - Z68.41) as above Mar, Fatigue, unspecified type (ICD-10 - R53.83) as above [facility] Other 12-19-2023 NotePatient here for follow up tilt table test per Elana Ramirez CNP. Review of Systems Cardiovascular: Positive for palpitations. Neurological: Positive for dizziness, headaches and light-headedness. All other systems reviewed and are negative.[facility] 03-03-2023 NoteUT Electrophysiology Consult Note Reason [...] had a tilt table study done at [facility] this that was a negative study based [...] systems reviewed and are negative. Prior HPI: Mrogan Kirkland is a 32 y.o. year old [...] tablet 3 No curre (more content not included)...[facility] 02-27-2023 History of Present illness Narrative* May Crandall RN - 02/27/2023 2:30 PM EST Instructed on objectives and procedure of a tilt study [facility] Discharge instructions Follow Up Care 01/23/2023 09:42:55 With:MIKY SAMPSON, Clark Roldan, URL Address: [facility] [address] , [place] [address]- When:Within 3 Month(s) Comments:w/Met W/up [facility] 11-10-2023 Hospital Discharge instructions Patient Education 01/23/2023 09:39:05 Urinary Tract Infection, Adult, Atdh-ms-[facility] Urinary Tract Infection, Adult A urinary tract [...] Follow these instructions at home: Medicines Take wgyq-dfk-rmhsjrz and prescription medicines only as told by [...] provider. Document Revised: 10/12/2020 Document Reviewed: 10/12/2020 [employer] Patient Education 2022 Neocleus. Follow Up Care 07/18/2022 12:23:23 With:MIKY SAMPSON, Clark Roldan, URL Address: [facility] [address] , [place] [address]- [phone] When: Unknown Comments:1 yr w/ REYNA [facility] 10-01-2023 History general Narrative - Reported* Type Description Date Medical History tachycardia Medical History anxiety Medical History sjogren syndrome Surgical History tonsillectomy and adenoidectomy Surgical History Hysterectomy 12/2022 Surgical History Loop monitor 08/2022 [facility] Other 03-06-2023 Hospital Discharge instructions Patient Education [...] include: ?Spinach. ?Rhubarb. ?Beets. ?Potato chips and moroccan fries. ?Nuts. If you regularly take a diuretic medicine, make sure to eat at least 1 2 fruits or vegetables high in potassium each day. These include: ?Avocado. ?Banana. ?Pritchett, prune, carrot, or tomato juice. ?Baked potato. [...] Casseroles. Pizza. Lasagna. Frozen meals. Potato chips. English fries. Summary You can reduce your risk [...] 06/27/2011 Document Revised: 06/22/2019 Document Reviewed: 02/10/2017 [employer] Patient Education 2020 Neocleus. Follow Up Care 05/16/2022 10:14:36 With:MIKY SAMPSON, Clark Roldan, URL Address: [facility] [address] [place] [address]- When: Unknown [facility] 03-03-2023 Evaluation note* Encounter Date Diagnosis Assessment Notes Treatment Notes Treatment Clinical Notes May, Thyroid disease (ICD-10 - E07.9) [facility] Other 02-24-2023 Evaluation note* Encounter Date Diagnosis Assessment Notes Treatment Notes Treatment Clinical Notes Apr, Dysuria (ICD-10 - R30.0) [facility] Other 01-26-2023 Evaluation note* Encounter Date Diagnosis [...] Acute non-recurrent maxillary sinusitis (ICD-10 - J01.00) [employer] Other Chief complaint+Reason for visit Narrative* Chief Complaint Weight Loss Referral Dr. Diana Reason for Visit Abnormal weight gain Fatigue HTN (hypertension) [facility] Work Phone: chief complaint+Reason for visit Narrative* Chief Complaint Weight Loss Referral Dr. Diana feet , ankle swelling Reason for Visit Abnormal weight gain Fatigue HTN (hypertension) Abnormal weight gain Depression Fatigue HTN (hypertension) Obesity, Class III, BMI 40-49.9 (morbid obesity) KRISTA on CPAP [facility] Work Phone: chief complaint+Reason for visit Narrative* [...] BMI 40-49.9 (morbid obesity) KRISTA on CPAP [facility] Work Phone: chief complaint+Reason for visit Narrative* Chief Complaint Referral Dr. Rosalba ramos feet , ankle swelling WMN Initial RD Reason for Visit Abnormal weight gain Depression Fatigue HTN (hypertension) Obesity, Class III, BMI 40-49.9 (morbid obesity) KRISTA on CPAP Lower extremity edema Neck pain Abnormal weight gain Depression Fatigue HTN (hypertension) Obesity, Class III, BMI 40-49.9 (morbid obesity) KRISTA on CPAP [facility] Work Phone: Evaluation + Plan note No data available for this section [facility] evaluation + Plan note Future Appointments Appointment Date:01/29/2024 08:30:00 AM Scheduled Provider:Clark CLEMENS MD Location:[facility] Appointment Type:URO Office Visit [facility] evaluation + Plan note Future Appointments Appointment Date:01/29/2024 08:30:00 AM Scheduled Provider:Clark CLEMENS MD Location:[facility] Appointment Type:URO Office Visit Diagnostic Tests Pending * [facility]ments Appointment Date:05/06/2024 08:30:00 AM Scheduled Provider:Clark CLEMENS MD Location:[facility] Appointment Type:URO Office Visit [facility] evaluation noteNo InformationNort Home Inns Other Evaluation noteNo assessment information available [facility] Work Phone: Evaluation note* Diagnosis Postural dizziness with near syncope documented in this encounter [facility] note* Diagnosis Onset Date Resolution Status Abnormal weight gain acute Fatigue acute HTN (hypertension) acute [facility] Work Phone: evaluation note* Diagnosis Onset Date Resolution Status Abnormal weight gain acute Fatigue acute HTN (hypertension) acute Abnormal weight gain acute Depression acute Fatigue acute HTN (hypertension) acute Obesity, Class III, BMI 40-49.9 (morbid obesity) acute KRISTA on CPAP acute [facility] Work Phone: Evaluation note* Diagnosis Onset Date [...] (morbid obesity) acute KRISTA on CPAP acute [facility] Work Phone: Evaluation note* Diagnosis Onset Date Resolution Status Abnormal weight gain acute Depression acute Fatigue acute HTN (hypertension) acute Obesity, Class III, BMI 40-49.9 (morbid obesity) acute KRISTA on CPAP acute Lower extremity edema acute Neck pain acute Abnormal weight gain acute Depression acute Fatigue acute HTN (hypertension) acute Obesity, Class III, BMI 40-49.9 (morbid obesity) acute KRISTA on CPAP acute [facility] Work Phone: Evaluation note* Diagnosis Onset Date Resolution Status Lower extremity edema acute Neck pain acute Abnormal weight gain acute Depression acute Fatigue acute HTN (hypertension) acute Obesity, Class III, BMI 40-49.9 (morbid obesity) acute KRISTA on CPAP acute Abnormal weight gain acute Depression acute Fatigue acute HTN (hypertension) acute Obesity, Class III, BMI 40-49.9 (morbid obesity) acute KRISTA on CPAP acute [facility] Work Phone: Evaluation note* Diagnosis KRISTA (obstructive sleep apnea)- Primary Obstructive sleep apnea (adult) (pediatric) Obesity due to excess calories, unspecified obesity severity Hypoxia Hypoxemia Hypersomnia Hypersomnia, unspecified [facility] - Reported* Type Description Date Medical History tachycardia Medical History anxiety Medical History sjogren syndrome Surgical History tonsillectomy and adenoidectomy [facility] Other Hospital Discharge instructions No data available for this section [facility] [place] note No data available for this section [facility] [place] Summary Purpose Family History No Family History Records Found Relationship Condition Age at Onset Recorded Date/T liiva father Heart disease Unknown Not Specified Hypertension [...] with near syncope Procedures Tilt table Elana Ramierz APRN - NP [id number] [facility] [address] [place] [address] Referral ID Status Reason Start Date Expiration Date Visits Re quested Visits Authorized [id number] Closed 02/16/2023 02/16/2024 1 1 Additional Source Comments INFORMATION SOURCE (unrecogn ized section and content) DATE CREATED AUTHOR 03/29/2019 [facility] DATE CREATED AUTHOR AUTHOR'S ORGANIZ ATION 07/24/2022 [facility] [place] [facility] DATE CREATED AUTHOR AUTHOR'S ORGANIZ ATION 01/29/2023 [facility] DATE CREATED AUTHOR AUTHOR'S ORGANIZ ATION [facility]/02/2023 [facility] DATE CREATED AUTHOR AUTHOR'S ORGANIZ ATION 08/10/2023 [facility] DATE CREATED AUTHOR AUTHOR'S ORGANIZ ATION 01/31/2024 [facility] DATE CREATED AUTHOR AUTHOR'S ORGANIZ ATION 02/01/2024 [facility] DATE CREATED AUTHOR AUTHOR'S ORGANIZ ATION 02/10/2024 [facility] DATE CREATED AUTHOR AUTHOR'S ORGANIZ ATION 02/27/2024 [facility] REASON FOR VISIT (unrecogniz ed section and content) Specialty Diagnoses / Procedures Referred By Contac t Referred To Contact Diagnoses Postural dizziness with near syncope Procedures Tilt table Elana Ramirez APRN - NP [phone] [facility] [address] [place] [address] Referral ID Status Reason Start Date Expiration Date Visits Re quested Visits Authorized [id number] Closed 02/16/2023 02/16/2024 1 1 Reason Comments Sleep Apnea Patient Care team informatio n (unrecognized section and content) Team Status: Active Member Role Status Dates David Newberry MD Primary Care Provider Active Team Status: Inactive Member Role Status Dates David Newberry MD Primary Care Provider Active Dasha Garcia DO Attending Provider Active Team Status: Inactive Member Role Status Dates David Newberry MD Primary Care Provider Active Enrique Lucas MD Attending Provider Active Date Puller Relationship Specialty Start Date End Date David Newberry MD [address] [place] [address] PCP - General Family Medicine 02/27/23 Team Status: Inactive Member Role Status Dates David Newberry MD Primary Care Provide r, Attending Provider Active Start: July 24, 2023 End: July 24, 2023 Team Status: Active Member Role Status Dates aDvid Newberry MD Primary Care Provide r, Attending [...] End: September 28, 2023 Charlene Reeves APRN CENTER LEAD CONSULTANT-C Attending Provider Act eb Start: September 28, [...] 04, 2023 End: December 04, 2023 Julita R Missler , SPAR MACHINE OPERATOR HELPER Attending Provider Active Start: December 04, 2023 End: December 04, 2023 Date Puller Relationship Specialty Start Date End Date David Newberry MD [address] [place] [address] PCP - General Family Medicine 08/07/22 Date Puller Relationship Specialty Start Date End Date David Newberry MD [address] [place] [address] PCP - General Family Medicine 08/07/22 Goals (unrecognized section and content) Goals may [...] BE BASED ON THE PRIMARY CLINICAL RECORDS. [employer] provides no warranty or guarantee of the accuracy or completeness of information in this document.
[2024-02-29 08:38] LABS: Calcium 8.9 mg/dL (8.5-10.1); Chloride 105 mmol/L (98-107); Estimated GFR (African America >60 (>=60 mL/min/1.73m^2); Estimated GFR (Non-African Ame >60 (>=60 mL/min/1.73m^2); Phosphorus 3.8 mg/dL (2.6-4.7); Sodium 141 mmol/L (136-145); Uric Acid 4.6 mg/dL (2.6-6.0)
[2024-02-29 08:41] LABS: Calcium Urine Random 21.1 mg/dL (5.1-21.0); Creatinine Urine Random 94.71 mg/dL (20.00-300.00); Sodium Urine Random 175 mmol/L (30-90)
[2024-02-29 08:42] LABS: Calcium 24 Hour Urine 443.1 mg/24hr (100.0-300.0); Creatinine 24 Hour Urine 1988.91 mg/24 hr (800.00-1800.00); Sodium 24 Hour Urine 368 mmol/24h (40-220); Total Volume 24 Hour Urine 2100 mL/24hr
[2024-03-01 04:07] LABS: Uric Acid, Urine 39.7 mg/dL (Not Estab.); Uric Acid,Urine 24hr 833.7 mg/24 hr (173.7-902.1)
[2024-03-01 09:07] LABS: Magnesium, U 7.6 mg/dL (Not Estab.); Magnesium,Urine 24hr 159.6 mg/24 hr (12.0-293.0); Phosphorus, Urine 81.3 mg/dL (Not Estab.); Phosphorus,Urine 24h 1707 mg/24 hr (261-1078)
[2024-03-01 09:07] LABS: PTH, Intact 26 pg/mL (15-65)
[2024-03-01 13:07] LABS: Citric Acid, U, 24hr 1191 mg/24 hr (320-1240); Citric Acid, Urine 567 mg/L (Undefined)
[2024-03-01 14:08] LABS: Oxalates, Urine 14 mg/L (Undefined); Oxalates, Urine 24hr 29 mg/24 hr (4-31)
== END 2024-02-29 08:04 | disposition home or self-care (01) ==
LOC: LAB 08:03
PROVIDERS: PCP Family Medicine; Visit Provider Urology
DX: N20.0 Calculus of kidney (principal)
CPT/HCPCS: 36415; 81050; 82310; 82340; 82374; 82435; 82507; 82565; 82570; 83735; 83945; 83970; 84100; 84105; 84295; 84300; 84520; 84550; 84560

== ENCOUNTER 2024-03-04 14:00 | Outpatient (OUT) | payer OTHER, SELFPAY ==
--- NOTE | 2024-03-04 14:00 | CA_ITS ---
Patient Name: MORGAN KIRKLAND MR#: [id number] : 1990 Exam Date: 03/04/2024 Ordering Doctor: ROYER DINH M.D. ECHOCARDIOGRAM REPORT PROCEDURE: CA ECHO DOPPLER COMPLETE INDICATIONS: Edema, cardiac loop recorder COMPARISON: None. DESCRIPTION: COMPLETE ECHOCARDIOGRAM Real-time transthoracic echocardiography with 2D, M-mode, spectral and color flow Doppler performed. QUALITY: Technical quality was suboptimal. LEFT VENTRICLE: Normal chamber size. Normal left ventricular wall thickness. Left ventricle systolic function was difficult to assess accurately however it appears to be preserved however cannot rule out presence of wall motion abnormalities due to suboptimal quality of the study, left ventricular ejection fraction estimated to be approximately 55% LV EF: Normal left ventricular ejection fraction, (>55%). DIASTOLIC: Normal diastolic function. ATRIAL SEPTUM: Appears intact LEFT ATRIUM: Mild dilatation. RIGHT ATRIUM: Normal chamber size. RIGHT VENTRICLE: Normal chamber size. Normal right ventricular systolic function TRICUSPID VALVE: Normal mobility and thickness. No stenosis with no regurgitation. MITRAL VALVE: Normal mobility and thickness. No evidence of mitral valve stenosis. There is no mitral annular calcification. No mitral regurgitation. AORTIC VALVE: Normal trileaflet appearance. No visible sclerosis. Normal leaflet mobility. No evidence of aortic valve stenosis. No aortic regurgitation. AORTIC ROOT: Normal diameter and appearance. Ascending aorta is normal in size. PULMONIC VALVE: Normal thickness and mobility. No stenosis. Trivial regurgitation. PERICARDIUM: No evidence of pericardial effusion. IVC: Not well visualized. PLEURA: CONCLUSION: Technically difficult study Left ventricle static function is probably preserved, however cannot rule out presence of motion abnormalities due to suboptimal quality of the study, elevated ejection fraction estimated to be approximately 55% Normal diastolic function Mild dilated left atrium No significant valvular abnormality Adult Echocardiography Procedure Report Left Ventricle LVEDD (3.7 - 5.6 cm): 4.45 cm LVESD (2.2 - 4.0 cm): 3.11 cm LVIVS thickness (0.6 - 1.2 cm): 1.16 cm LVPW thickness (0.5 - 1.0 cm): 0.89 cm e': 0.12 m/s E - e': 4.79 LVOT Max Gradient: 1.70 mm[Hg] LVOT Area (cm2): 0.65 m/s Peak Velocity (LVOT): 0.65 m/s Mean Velocity (LVOT): LVOT Diameter 2.53 cm Left Ventricular Ejection Fraction: Left Atrium LA Volume Index (2D A2C): 41.53 ml/m2 Left Atrium Systolic Dimension: 3.91 cm Mitral Valve MV E to A Ratio: 1.09 MV Max Gradient: MV Mean Gradient: Mitral Valve A-Wave Peak Velocity: 0.52 m/s Mitral Valve E-Wave Peak Velocity: 0.57 m/s Cardiovascular Orifice Area: Right Ventricle RV Internal Diastolic Dimension: Aorta AO Root Diam: 3.45 cm Ascending Ao Diam: 2.95 cm Aortic Valve AoV Area (Peak Sam): 3.16 cm2, 3.16 cm2 AoV Area (VTI): Deceleration [place]: Pressure Half-Time: Peak Velocity(Antegrade Flow): 1.04 m/s Peak Gradient(Antegrade Flow): 4.34 mm[Hg] Mean Velocity(Antegrade Flow): Mean Gradient(Antegrade Flow): Velocity Time Integral: Tricuspid Valve Peak Velocity (Regurgitant Flow): Peak Velocity: Pulmonic Valve Mean Gradient: 1.52 mm[Hg] Mean Velocity: 0.57 m/s Peak Velocity: 0.93 m/s, 1.01 m/s Peak Gradient: 4.09 mm[Hg], 3.43 mm[Hg] Right Atrium Right Atrium Systolic Pressure: Dictated by: Alfreda Yang MD on 03/04/2024 at 19:21 Approved by: Alfreda Yang MD on 03/04/2024 at 19:27
== END 2024-03-04 14:01 | disposition home or self-care (01) ==
LOC: CARD 14:01
PROVIDERS: PCP Family Medicine; Visit Provider Internal Medicine Cardiovascular Disease
DX: R60.0 Localized edema (principal)
CPT/HCPCS: 93306

== ENCOUNTER 2024-09-21 06:55 | Outpatient (RCR) | payer OTHER, SELFPAY | END 2024-10-25 09:22 | disposition home or self-care (01) | LOC: PT 06:55 | PROVIDERS: PCP Family Medicine; Visit Provider Family Medicine | DX: M25.571 Pain in right ankle and joints of right foot (principal) | CPT/HCPCS: 97010; 97014; 97035; 97110; 97112; 97140; 97162 ==

== ENCOUNTER 2024-11-02 06:58 | Outpatient (RCR) | payer OTHER, SELFPAY | END 2024-12-01 10:33 | disposition home or self-care (01) | LOC: PT 06:58 | PROVIDERS: PCP Family Medicine; Visit Provider Podiatrist Foot & Ankle Surgery | DX: M79.672 Pain in left foot (principal); M25.571 Pain in right ankle and joints of right foot; M25.371 Other instability, right ankle; S96.812A Strain of other specified muscles and tendons at ankle and foot level, left foot, initial encounter | CPT/HCPCS: 20560; 20561; 97035; 97110; 97112; 97140; 97162 ==

== ENCOUNTER 2025-02-07 08:07 | Outpatient (OUT) | payer OTHER, SELFPAY ==
--- OUTSIDE RECORDS SUMMARY | 2025-01-25 08:35 | XMS_ITS | Encounter Summary ---
Author Organization [facility] Address [address] [place] [address] Care Team Providers Care Job Coaching Name Role Phone Carri Ortega MD Primary Care Provider [phone] Encounter Details DateTypeDepartmentCare Team (Latest Contact Info)Xpkynarrgkm59/12/2025 8:35 AM ESTAncillary Procedure [facility] [address] [place] [address] Awareness of heartbeats Social History Tobacco UseTypesPacks/DayYears UsedDateSmoking Tobacco: NeverSmokeless Tobacco: NeverAlcohol UseStandard Drinks/WeekCommentsYes0 (1 standard drink = 0.6 oz pure alcohol)occasionalUT Safety & EnvironmentAnswerDate RecordedFear of Current or Ex-PartnerNot on file05/07/2023Emotionally AbusedNot on file05/07/2023hysically AbusedNot on file05/07/2023Sexually AbusedNot on file05/07/2023hysically or Sexually AbusedNot on file05/07/2023CommentsUnknownSex and Gender InformationValueDate RecordedSex Assigned at BirthNot on fileLegal SexFemale 11/26/2021 1:32 PM EDTGender IdentityChoose not to hxyhyuzu90/29/2025 11:13 PM EDTSexual OrientationChoose not to ufndaaxl73/29/2025 11:13 PM EDTdocumented as of this encounter Plan of Treatment DateTypeDepartmentCare Team (Latest Contact Info)Nkdvlhjjxqo08/16/2025 8:00 AM ESTAppointment [facility] [address] [place] [phone] documented as of this encounter Procedures Procedure NamePriorityDate/TimeAssociated DiagnosisCommentsCARDIAC DEVICE CHECK CHECK - JKBOMSYxmqbjj56/12/2025 4:51 PM EST Awareness of heartbeats documented in this encounter Results * CARDIAC DEVICE CHECK - REMOTE - LOOP RECORDER (ILR) (01/25/2025 4:51 PM EST) Specimen (Source)Anatomical Location / LateralityCollection Method / Volume Collection TimeReceived Time Narrative Authorizing ProviderResult TypeResult StatusBlair Lashonda MDCV IMPLANTABLE CARDIAC DEVICE PROCEDURESFinal ResultPerforming OrganizationAddressCity/State/ZIP Code Phone Number CPACS documented in this encounter Visit Diagnoses Diagnosis Awareness of heartbeats documented in this encounter Care Teams Team MemberRelationshipSpecialtyStart DateEnd Date Carri Ortega MD [address] [facility] PCP - Elnhnso33/3/22documented as of this encounter
--- OUTSIDE RECORDS SUMMARY | 2025-01-26 10:20 | XMS_ITS | Encounter Summary ---
Author Organization [facility] Address [address] [place] [address] Care Team Providers Care Bobbin Cleaner Hand Name Role Phone Carri Ortega MD Primary Care Provider [phone] Reason for Referral * Imaging (Routine) - Pending ReviewSpecialtyDiagnoses / ProceduresReferred By ContactReferred To ContactRadiology Diagnoses Family history of DVT Dyspnea on exertion Family history of premature CAD Other chest pain Procedures CTA Heart Coronary W IV Contrast W or WO FFRct Amada Stewart CNP [address] [place] [address] Phone: tel: fax: Referral IDStatusReasonStart DateExpiration DateVisits RequestedVisits [id number] * Imaging (Routine) - Pending ReviewSpecialtyDiagnoses / ProceduresReferred By ContactReferred To ContactCardiology Diagnoses Dyspnea on exertion Procedures Transthoracic echo (TTE) complete Amada Stewart CNP [address] [place] [address] Phone: tel: fax: Referral IDStatusReasonStart DateExpiration DateVisits RequestedVisits [id number] Review Perform Procedure * Genetic Testing (Routine) - Pending ReviewSpecialtyDiagnoses / Procedures Referred By ContactReferred To ContactLab Diagnoses Family history of DVT Procedures Prothrombin gene mutation Amada Stewart CNP [address] [place] [address] Phone: tel: fax: Referral IDStatusReasonStart DateExpiration DateVisits RequestedVisits [id number] Reason for Visit * ReasonCommentsFollow-upPatient is here today for a 6 month follow up appointment. Patient states she has a few occasions of skipping beats.Patient states a couple of weeks ago she ordered a coffee which she thought was decaf and started a new supplement and had a high heart rate. No events since that day. Patient would like to be checked for a clotting disorder due to family history.HypertensionPostural dizziness with near syncope Encounter Details DateTypeDepartmentCare Team (Latest Contact Info)Loijmffwfrw70/13/2025 10:20 AM ESTOffice Visit [facility] [place] [address] [place] [address] Amada Stewart CNP [address] [place] [address] Family history of DVT (Primary Dx); Dyspnea on exertion; Family history of premature CAD; Palpitations; Other chest pain; Primary hypertension; Status post placement of implantable loop recorder; Family history of blood clots Social History Tobacco UseTypesPacks/DayYears UsedDateSmoking Tobacco: NeverSmokeless Tobacco: NeverAlcohol UseStandard Drinks/WeekCommentsYes0 (1 standard drink = 0.6 oz pure alcohol)occasionalUT Safety & EnvironmentAnswerDate RecordedFear of Current or Ex-PartnerNot on file05/07/2023Emotionally AbusedNot on file05/07/2023hysically AbusedNot on file05/07/2023Sexually AbusedNot on file05/07/2023hysically or Sexually AbusedNot on file05/07/2023CommentsUnknownSex and Gender InformationValueDate RecordedSex Assigned at BirthNot on fileLegal SexFemale 11/26/2021 1:32 PM EDTGender IdentityChoose not to bjgzvemd56/29/2025 11:13 PM EDTSexual OrientationChoose not to pcfbohkw83/29/2025 11:13 PM EDTdocumented as of this encounter Last Filed Vital Signs Vital SignReadingTime TakenCommentsBlood Mkdfctsl160/8201/26/2025 10:47 AM EST Sqvep927201/26/2025 10:47 AM ESTTemperature--Respiratory Rate--Oxygen Saturation 98%01/26/2025 10:47 AM ESTInhaled Oxygen Concentration--Rpkxes505 kg (293 lb) 01/26/2025 10:47 AM EKIBczhko130.2 cm (5' 7 )01/26/2025 10:47 AM ESTBody Mass Index45.8901/26/2025 10:47 AM ESTdocumented in this encounter Functional Status * BPAnswerDate of AojcrnltgwIkykii788/8201/26/2025 10:47 AM Marisol Sandoval MA * PulseAnswerDate of FbcbjygxvjSomgsq8847/13/2025 10:47 AM Marisol Sandoval MA * Audit Alcohol ScreeningQuestionAnswerDate of AssessmentAuthorHow often do you have a drink containing alcohol? 10:51 AM Marisol Sandoval MA * Patient PositionAnswerDate of BpkzchwjeiRnvyhkKknnhwp04/13/2025 10:47 AM EST Marisol Li MA * BPAnswerDate of PnlcnkoqsuRfegjr831/8201/26/2025 10:47 AM Marisol Sandoval MA * PulseAnswerDate of AgwdqwyxizJivsab1585/13/2025 10:47 AM Marisol Sandoval MA * AhA9NlpavbSqbe of XgtgrrcsncIxsvsh0001/13/2025 10:47 AM Marisol Sandoval MA * BP LocationAnswerDate of AssessmentAuthorRight arm01/26/2025 10:47 AM Marisol Cabrera MA * Audit Alcohol ScreeningQuestionAnswerDate of AssessmentAuthorHow often do you have a drink containing alcohol? 10:51 AM Marisol Sandoval MA * Patient PositionAnswerDate of RlztxffrkvQxcklcEypuwvm11/13/2025 10:47 AM Marisol Cabrera MA documented as of this encounter Patient Instructions * Patient Instructions* Amada Stewart CNP - 01/26/2025 10:20 AM EST CPT code for hypercoag panel: 40142 [id number] 53631 31151 09924 51298 58812 77265 85426 (x2) 08465 10606 (x2) 80943 (x3) 41415 (x2) documented in this encounter Progress Notes * Amada Stewart CNP - 01/26/2025 10:20 AM EST Images from the original note were not included. Cardiovascular Medicine [facility] SUBJECTIVE Chief Complaint Patient presents with Follow-up Patient is here today for a 6 month follow up appointment. Patient states she has a few occasions of skipping beats.Patient states a couple of weeks ago she ordered a coffee which she thought was decaf and started a new supplement and had a high heart rate. No events since that day. Patient would like to be checked for a clotting disorder due to family history. Hypertension Postural dizziness with near syncope Lashell Cramer is a 34 y.o. female here for follow-up on her palpitations. Hypertension PMHx: palpitations s/p LOOP implant 08/21/2022, atrial tachycardia, HTN 01/26/2025 Since last seen she sprained her ankle. Doing better. She notes when she had palpitations a few weeks ago, HR was in the 150s. She notes she had a coffeeand is wondering if it wasn't truly decaf. Lasted for a few hours. Nothing noted on LOOP recorder. She c/o FRANK. This has been worsening the past few months. She also has had previous issues with chest pain. Her father hx of LA age 44. He has multiple stents in his heart along with legs/abdomen. Father hx of DVT in leg and abdomen. Paternal aunt with LA age age 44. She also has hx of DVT and stents. She is concerned about her risk for CAD along with blood clots. She has 2 kids, no miscarriages. 07/20/2024 Patient is here today for a 5 month follow up. Patient states she is doing ok. Patient states she has felt a few skipped beats, and feels like her heart rate is higher over the the last couple of weeks. Patient states she has had chest pain here and there with and without activity, pain goes a crossed her chest, it feels pressure at time, sometime its feels like twinges of pain. Patient states when the happen it makes her gasp. Patient denies leg swelling, dizziness Pt notes that the chest pain can be right or left sided. Notes hx of fibrocystic breast tissue - she is unsure if sx's correlate with a cycle. She also notes she has children and sometimes they hit her in the chest during play and it will be around the area where her loop recorder was placed and can cause soreness. Denies c/o dyspnea with exertion, orthopnea, PND, LE edema, dizziness/LH, syncope. 07/07/23 Patient here c/o intermittent LE edema. [...] the last time she had leg swelling herheart rhythm was abnormal. In the last year she feels like she's had trouble with weight gain, maybe 50# in the year. She tries to watch what she eats but sometimes gets off track. This is the same with exercising. She has occasional palpitations - this is stable and improved since starting metoprolol. Denies CP, dizziness/LH, syncope. 03/03/23 Patient has felt better since starting [...] had a tilt table study done at [facility]. this that was a negative study based on tilt.upon administration of 0.3 mcg of nitroglycerin after 20 minutes of tilt, she developed hypotensionwith the resumption of the symptoms of lightheadedness. [...] presented below 10/25/2022 where she drank alcohol andhad a frozen karon around the time of arrhythmia. we discussed continuing monitoring and we can proceed with tilt table test to rule out POTS She has increased fluid intake/salt intake and is using electrolyte packets Loop data review: I reviewed her loop and she is has multiple episodes of tachycardia. all episodesare still under 150 bpm borderline tachycardic strips do appear like an SVT as there is a break in the rhythm and change in QRS delfection. There are some strips that do appear as ITS 09/10/22: she is here for follow-up regarding her loop device. She is here for loop data review. I did reviewher data with no concerns at this time [...] systems reviewed and are negative. Prior HPI: Lashell Cramer is a 32 y.o. year old with past medical history including anxiety, fibromyalgia, palpitations, and Sjogren's disease who is referred to EP clinic for palpitation and findings of event monitor. patient started on metoprolol at some point for palpitation which improved partially. Patient had event monitor in December reviewed by Juan Ramirez, HOSPITAL PLAN ADMINISTRATOR showed sinus tachycardia, atrial arrhythmia. Patient reported increasing pain episode frequency of palpitation heart rate up to150 associated with chest pressure for few minutes. [...] media Palpitations Precordial pain Primary Sjogren's syndrome Right flank pain Spontaneous ecchymosis Symptoms involving [...] Hypersomnia Hypoxia Lower extremity edema Obstructive sleep apnea syndrome PLMD (periodic limb movement disorder) Snores Hypercalciuria Right ankle pain Right ankle sprain Past Medical History: Diagnosis Date Palpitations Sleep apnea Family History Problem Relation Name Age of Onset Heart attack Father 44 Coronary artery disease Father Clotting disorder Father Social History Tobacco Use Smoking status: Never Smokeless tobacco: Never Substance Use Topics Alcohol use: Yes Comment: occasional Drug use: Defer Allergies Allergen Reactions Other Unknown Stimulants Iodine Rash and Unknown Penicillin Rash Povidone-Iodine Rash OBJECTIVE Visit Vitals BP 120/82 (BP Location: Right arm, Patient Position: Sitting) Pulse 64 Ht 1.702 m (5' 7 ) Wt 133 kg (293 lb) SpO2 98% BMI 45.89 kg/m?? Smoking Status Never BSA 2.51 m?? Medications: Current Outpatient Medications: hydroCHLOROthiazide (Microzide) 12.5 mg capsule, Take 12.5 mg by mouth in the morning., Disp: , Rfl: metoprolol tartrate 75 mg tablet, Take 1 tablet (75 mg) by mouth two times daily., Disp: 180 tablet, Rfl: 3 SAFFRON EXTRACT ORAL, Take 1 tablet by mouth 3 (three) times a week. (Patient not taking: Reported on 01/26/2025), Disp: , Rfl: Physical Exam Vitals reviewed. Constitutional: Appearance: Normal appearance. HENT: Head: Normocephalic and atraumatic. Right Ear: External ear normal. Left Ear: External ear normal. Eyes: Extraocular Movements: Extraocular movements intact. Conjunctiva/sclera: Conjunctivae normal. Pupils: Pupils are equal, round, and reactive to light. Neck: Vascular: No carotid bruit. Cardiovascular: Rate and Rhythm: Normal rate and regular rhythm. Pulses: Normal pulses. Heart sounds: Normal heart sounds. Pulmonary: Effort: Pulmonary effort is normal. Breath sounds: Normal breath sounds. Abdominal: General: Bowel sounds are normal. Palpations: Abdomen is soft. Musculoskeletal: Cervical back: Neck supple. Right lower leg: No edema. Left lower leg: No edema. Skin: General: Skin is warm and dry. Neurological: General: No focal deficit present. Mental Status: She is alert and oriented to person, place, and time. Psychiatric: Mood and Affect: Mood normal. Behavior: Behavior normal. Thought Content: Thought content normal. Judgment: Judgment normal. Labs: Ancillary Procedure on 06/04/2023 Component Date Value Ref Range Status BSA 09/03/2023 2.46 m2 Final No results found for: EXTCMP , BMPR1A , CBCDIF , BNP , LASAP , RED Testing/Procedures: 12/24/2021 Stress test: 04/2015 treadmill ASSESSMENT/PLAN: Diagnoses and all orders for this visit: Family history of DVT - Antithrombin III; Future - APTT; Future - Factor 5 leiden; Future - D-dimer, quantitative; Future - Fibrinogen; Future - Lupus anticoagulant; Future - Plasminogen activity; Future - Plasminogen activator inhibitor; Future - Protein C activity; Future - Protein S activity; Future - Prothrombin gene mutation; Future - Von Willebrand screen; Future - Protime-INR; Future - CTA Heart Coronary W IV Contrast W or WO FFRct; Future - CT cardiac scoring; Future Dyspnea on exertion - Transthoracic echo (TTE) complete; Future - CTA Heart Coronary W IV Contrast W or WO FFRct; Future - CT cardiac scoring; Future - Creatinine, Serum; Future Family history of premature CAD - CTA Heart Coronary W IV Contrast W or WO FFRct; Future - CT cardiac scoring; Future - Creatinine, Serum; Future Palpitations Other chest pain - CTA Heart Coronary W IV Contrast W or WO FFRct; Future - CT cardiac scoring; Future Primary hypertension Status post placement of implantable loop recorder Family history of blood clots - Palpitations s/p LOOP likely AT - Chest pain - FRANK - h/o of COVID - Sjogrens - hypertension - False positive tilt table test - Anxiety - KRISTA - Family hx premature CAD - Father hx of DVT Plan: -In the past few months, she has been experiencing increased FRANK. She also has noted in the past intermittent episodes of chest pain. Sx's concerning for angina. She has a family hx of premature CAD,father with an LA at age 44. -Will proceed with an ECHO to assess heart function, valve function, right sided pressures, etc. -She has previously undergone a stress test that was negative. Will order for a coronary angiogram to further assess for any significant CAD. Will also add CT with calcium scoring to help with medical management. -Her palpitations are overall controlled, will continue metoprolol tartrate 75mg BID. -Recent LOOP data reviewed, no arrhythmias. -She was found to have KRISTA, continue compliance with CPAP. -She is concerned with her family hx of blood clots. Hypercoag panel ordered. If testing unremarkable, Follow up in about 6 months (around 07/26/2025). Amada Stewart CNP [facility] documented in this encounter Plan of Treatment DateTypeDepartmentCare Team (Latest Contact Info)Ciicrxajlzc69/16/2025 8:00 AM ESTAppointment [facility] [address] [place] [address] NameTypePriorityAssociated DiagnosesOrder ScheduleAntithrombin IIILabRoutine Family history of DVT Expected: 01/26/2025 (Approximate), Expires: 01/26/2026PTTLabRoutine Family history of DVT Expected: 01/26/2025 (Approximate), Expires: 01/26/2026Factor 5 leidenLabRoutine Family history of DVT Expected: 01/26/2025 (Approximate), Expires: 01/26/2026D-dimer, quantitativeLab Routine Family history of DVT Expected: 01/26/2025 (Approximate), Expires: 01/26/2026FibrinogenLabRoutine Family history of DVT Expected: 01/26/2025 (Approximate), Expires: 01/26/2026Lupus anticoagulantLab Routine Family history of DVT Expected: 01/26/2025 (Approximate), Expires: 01/26/2026Plasminogen activityLab Routine Family history of DVT Expected: 01/26/2025 (Approximate), Expires: 01/26/2026Plasminogen activator inhibitorLabRoutine Family history of DVT Expected: 01/26/2025 (Approximate), Expires: 01/26/2026Protein C activityLab Routine Family history of DVT Expected: 01/26/2025 (Approximate), Expires: 01/26/2026Protein S activityLab Routine Family history of DVT Expected: 01/26/2025 (Approximate), Expires: 01/26/2026Prothrombin gene mutation LabRoutine Family history of DVT Expected: 01/26/2025 (Approximate), Expires: 01/26/2026Von Willebrand screenLab Routine Family history of DVT Expected: 01/26/2025 (Approximate), Expires: 01/26/2026Protime-INRLabRoutine Family history of DVT Expected: 01/26/2025 (Approximate), Expires: 01/26/2026Transthoracic echo (TTE) completeEchocardiographyRoutine Dyspnea on exertion Expected: 01/26/2025 (Approximate), Expires: 01/26/2027CTA Heart Coronary W IV Contrast W or WO FFRctImagingRoutine Family history of DVT Dyspnea on exertion Family history of premature CAD Other chest pain Expected: 01/30/2025 (Approximate), Expires: 11/17/2026CT cardiac scoringCardiac CTRoutine Family history of DVT Dyspnea on exertion Family history of premature CAD Other chest pain Expected: 01/30/2025 (Approximate), Expires: 01/30/2027Creatinine, SerumLab Routine Dyspnea on exertion Family history of premature CAD Expected: 01/30/2025 (Approximate), Expires: 01/30/2026documented as of this encounter Visit Diagnoses Diagnosis Family history of DVT- Primary Dyspnea on exertion Other dyspnea and respiratory abnormality Family history of premature CAD Family history of ischemic heart disease Palpitations Other chest pain Primary hypertension Unspecified essential hypertension Status post placement of implantable loop recorder Family history of blood clots documented in this encounter Care Teams Team MemberRelationshipSpecialtyStart DateEnd Date Carri Ortega MD [address] [place], [place] [address]A PCP - Sdwejod15/3/22documented as of this encounter
--- OUTSIDE RECORDS SUMMARY | 2025-01-31 03:50 | XMS_ITS | Continuity of Care Document ---
Author Organization [facility] Address [address] [place] [address] Phone Care Team Providers Care Training Instructor Name Role Phone Carri Ortega MD Primary Care Provider Carri Ortega MD Attending Provider [phone] Joanna Potter APRN Attending Provider Care Teams Patient Care Team Team Status: Active Member Role/Relationship Status Dates Carri Ortega MD Primary Care Provider Active Visit Care Team Team Status: Inactive Member Role/Relationship Status Dates Carri Ortega MD Primary Care Provider Active Start: November 18, 2024 End: November 18, 2024Yoel Garcia ProviderActiveStart: November 18, 2024 End: November 18, 2024 Visit Care Team Team Status: Inactive Member Role/Relationship Status Dates Carri Ortega MD Primary Care Provider Active Start: November 18, 2024 End: November 18, 2024Yoel Garcia ProviderActiveStart: November 18, 2024 End: November 18, 2024 Patient Care Team Team Status: Inactive Member Role/Relationship Status Dates Carri Ortega MD Primary Care Provider Active Start: January 31, 2025 End: January 31Amber Pickens ProviderActiveStart: January 31, 2025 End: January 31, 2025 Chief Complaint and Reason for Visit Chief Complaint Admit Date UA:Burning/Frequency November 18, 2024 10:03am N39.0 November 18, 2024 10:15am 1 year follow up January 31, 2025 8:23am Reason for Visit Admit Date UTI (urinary tract infection) November 18, 2024 10:03am Hypersomnia January 31, 2025 8:23am Hypoxia January 31, 2025 8:23am Obesity, Class III, BMI 40-49.9 (morbid obesity) January 31, 2025 8:23am KRISTA on CPAP January 31, 2025 8:23am Allergies, Adverse Reactions, Alerts Allergen Type Severity Reaction Last Updated Verified Status Comments Penicillins Allergy Unknown Rash January 8:32am Yes Active Onset Date: 01/19/2013 iodine Allergy Unknown Rash January 31, 2025 8:32am Yes Active Social History Smoking Status Status Start Date End Date Date of Observa tion Never smoked tobacco (finding) September 04, 2023 8:23am Observation Status Observation Response Date of Response Legal Sex Female (finding) Sex Assigned At BirthFemaleSept1990 Family History Relationship Condition Age at Onset Recorded Date/T livia father Heart disease Unknown Disorder of hemostasisUnknownmotherHypertensionUnknownmaternal grandfather Malignant neoplasm of prostateUnknownmaternal grandmotherDiabetes mellitus UnknownbrotherHypertensionUnknownpaternal grandfatherDiabetes mellitusUnknown Heart diseaseUnknownMyocardial infarctionUnknown Problems Active Problems Problem Diagnosis/Recorded Date Onset Date Status C omments Daytime sleepiness September 04, 2023 7:33am Unknown Activ e UTI (urinary tract infection)November 18, 2024 9:48amUnknownActiveLower extremity edemaJuly 2023 7:21amUnknownActiveOSA on CPAPJune 2023 3:55pmUnknownActiveFatigueMay 2023 8:03amUnknownActiveAbnormal weight gain July 24, 2023 8:04amUnknownActiveDepressionJune 2023 7:33amUnknownActive HypersomniaNovember 2024 8:33amUnknownActiveSnoresJune 2023 3:59pm UnknownActiveHypoxiaNovember 2024 8:33amUnknownActiveADHD, predominantly inattentive typeJune 2024 11:48amUnknownActiveRight ankle painMay 2024 10:26amUnknownActiveADHDJune 2023 3:56pmUnknownActiveNeck painJuly 2023 7:21amUnknownActiveObesity, Class III, BMI 40-49.9 (morbid obesity) September 04, 2023 7:33amUnknownActiveHTN (hypertension)June 05, 2019 9:39pm UnknownActiveProblem List clean-up per request of Phys. EHR CmteRight ankle sprainMay 2024 1:26pmUnknownActiveInactive/Resolved Problems Problem Diagnosis/Recorded Date Onset Date Status C omments LLQ pain December 29, 2022 8:15am Unknown Resolved Problem List clean-up per request of Phys. EHR Cmte Menorrhagia December 29, 2022 8:14am Unknown Resolved Problem List clean-up per request of Phys. EHR Cmte Status post vaginal delivery June 07, 2019 7:04am Unknown Resolved Problem List clean-up per request of Phys. EHR Cmte Adenomyosis December 29, 2022 8:14am Unknown Resolved Problem List clean-up per request of Phys. EHR Cmte S/P laparoscopic hysterectomy December 29, 2022 12:00pm Unknown Resolved Probl em List clean-up per request of Phys. EHR Cmte Medications Medication Status Dose Units Route Directions Qty Days Refills S tart Date Stop Date End Date Reason(s) Instructions Adherence Bupropion Hcl (Smoking Deter) 150 mg tablet extended release 12 hr Discontinued 150 MG PO Twice daily 60 30 2 December 08, 2023 11:00pm August 08, 2024 10:10amTake one tablet daily days 1-7 then increase to twice daily dosingNaltrexone 50 mg baffaiMrqvnwghytrs85CVDJGeudk07245Lkilrltxh 2023 11:00pmMay 2024 10:10amTake 1/4 tab for initial 4 days.Cpap (Continuous Positive Airway Pressure) unitActive0.Cxmgn59Homqdp 13th, 2025 11:00pmAll supplies and masks for one yearDocusate Sodium (Colace) 100 mg fzgwklrCwhcttrlsisw190IEZJThfsm daily as needed for hakqcodjhxng988Hgxny 2019 7:07amOctober 2022 1:43pmIbuprofen 600 mg nlnrxwCjgmhypmiosr700IIGQM3O as needed for ihvv583Ydifo 2019 11:00pmOctober 2022 1:43pmMetoprolol Tartrate 75 mg lhnuezGjqpmq84JSIBQvxtd dailyOctober 2022 11:00pmComplies with drug therapyIbuprofen 600 mg qikypfWgoyflkfioqv792TLBBX1O as needed for beip941Frkakjj 2022 11:00pmMay 2023 7:35amTramadol 50 mg tablet Evsglakwzxhi63RQMSA5J as needed for qalh6934Fhhrwsn 2022 11:00pmMay 2023 7:35amStatus post laparoscopic hysterectomy Acquired absence of both cervix and uterusDocusate Sodium (Colace) 100 mg geirbsmDacwemunlvib064QJHVClwkp daily as needed for wcwtrofkayez265Xibdreh 2022 12:00pmMay 2023 7:35amPrenatal Vit 32-Uqqk-Uuszv-Dha ( + Dha) 28 mg iron- 975 mcg-200 mg Combo CofnKprhtiyawjjp7NFSFMCowhnRmirybkc 2019 12:00amOctober 2022 1:43pmSemaglutide (Weight Loss) (Wegovy) 0.25 mg/0.5 mL pen injectorDiscontinued0.25MGSUBCUTevery nwdo00Mvdtfhhum 2023 11:00pm December 09, 2023 6:22amAt risk for cardiovascular event Morbid obesity with body mass index (BMI) of 40.0 to 49.9 Other specified personal risk factors, not elsewhere classified Morbid (severe) obesity due to excess caloriesAdminister weeks 1 through 4 of therapyHydrochlorothiazide 12.5 mg eevnvqdJkxwtl94.5MGPODailyMay 2024 11:00pmComplies with drug therapyNaproxen 500 mg ksnstlKjepzkrkesqo252BAYCXrydy daily as needed for ezdo80277Sfn 2024 11:00pmMay 2024 11:00am Immunizations Immunization Event Date Not Given Reason Dose Number Equal Opportunity Officer Lot Number Reason(s) Given Vaccine Information Statement (VIS) Detail Administration Location COVID-19 mRNA-1273 (Moderna) March 28, 2020 COVID-19 mRNA-1273 (Moderna)April 25, 2020Hepatitis B Vaccine, adult dosage May 21, 2018Hepatitis B Vaccine, adult dosageApril 2018Tetanus, Diphtheria, Pertussis (Tdap)June 07, [id number] [facility] Procedures Procedure Date Performed Status Urine Culture November 18, 2024 completed Relevant Diagnostic Tests and/or Laboratory Data Laboratory Results Test Collection Date/Time Result Date/Time Result Interpretation Reference Range Result Comment Performing Site Urine Color November 18, 2024 9:32am November 18, 2024 9:36am amanda Urine AppearanceSept2024 9:32amSept2024 9:36amclearUrine Specific GravitySept2024 9:32amSept2024 9:36am1.010Urine pHSept2024 9:32amSept2024 9:04bo7Jdfsd Leukocyte Esterase November 18, 2024 9:32amSeptember 2024 9:36amnegativeUrine Nitrite November 18, 2024 9:32amSept2024 9:36amNegativeUrine Protein November 18, 2024 9:32amSeptember 2024 9:36amnegativeUrine Glucose (UA) November 18, 2024 9:32amSept2024 9:36amnegativeUrine Ketones November 18, 2024 9:32amSept2024 9:36amnegativeUrine Urobilinogen November 18, 2024 9:32amSept2024 9:36am0.2Urine BilirubinSept2024 9:32amSept2024 9:36amnegativeUrine Occult BloodSept2024 9:32amSept2024 9:36amnegative Microbiology Results Procedure Source Result Collection Date/Time Result Date/Time Result Comment Performing Site Urine Culture Urine 2 Days November 18, 2024 10 :15am November 20, 2024 9:57am [facility] [id number] [address] [place], [place] [id number] Vital Signs Vital Reading Result Reference Range Collection Date/Time Height 68 [in_i] January 31, 2025 8:47ufPxpfsn449.35 kgJanuary 31, 2025 8:31amHeart Rate61 /frr97-591YmrxxhmkJanuary 31, 2025 8:31amBP Mpsdwzki352 mm[Hg]100-140January 31, 2025 8:31amBP Mryaxcwfa25 mm[Hg]60-100January 31, 2025 8:31amBMI (Body Mass Index)44.6 kg/w4AfxvpqqqJanuary 31, 2025 8:31am Advance Directives Advance Directive Response Recorded Date/ Time Advance Directives No April 9:31am Insurance Providers Guarantor Phillip Mejía Address [address] [place] [id number] Info.Home Phone: Payer Group Member ID Coverage Type Subscriber Relationship to Subscriber Effective Date Expiration Date [employer] Id: [id number] [employer] , M Id: [id number] [address] [place] [id number] Home Phone: Email: [email or web address] Encounters Encounter Location(s) Arrival/Admit Date Discharge/Departure Date Discharge/Departure Disposition Provider(s) Departed Physician/ Provider Office Visit -[facility] November 18, 2024 10:03am November 18, 2024 10:22am Discharged to home care or self care (routine discharge) Carri Ortega MD Departed Referred -[facility] November 18, 2024 10:15am November 18, 2024 10:16am Discharged to home care or self care (routine discharge) Carri Ortega MD Departed Physician/ Provider Office Visit -[facility] Neurology [place] January 31, 2025 8:23am January 31, 2025 8:49am Discharged to home care or self care (routine discharge) Phillip Agosto CAR SEALER Recent Diagnosis Onset Date Admit Date UTI (urinary tract infection) Unknown Se pt2024 10:03am Hypersomnia Unknown January 31 8:23am Hypoxia Unknown January 31 8:23am Obesity, Class III, BMI 40-4 9.9 (morbid obesity) Unknown January 31, 2025 8:23am KRISTA on CPAP Unknown January 31 8:23am Assessments Diagnosis Onset Date Resolution Status Admit Date UTI (urinary tract infection) acuteSept2024 10:03amHypersomniaacuteNov2024 8:23am HypoxiaacuteJanuary 31, 2025 8:23amObesity, Class III, BMI 40-49.9 (morbid obesity)acuteJanuary 31, 2025 8:23amOSA on CPAPacuteJanuary 31, 2025 8:23am Plan of Treatment Author Joanna Potter [facility]Authost. [facility]January 31, 2025 8:25ie18-rhvp-xeb female with a moderate obstructive sleep apnea with an AHI of 16 and an oxygen desaturation down to 80%. She denies any concerns with mask or machine. She is getting benefit as it has improved her sleep maintenance insomnia, she is sleeping better and does not wake up with a headache any longer. She did purchase the CPAP head gear padding along with CPAP mask liners. The liners did not fit well, the padding is helpful. She is complaint on download 01/29/2025 as she is wearing the mask >4 hours 90% of the days, with nightly average usage 6 hours, 56 minutes, residual AHI 0.4. She did put the mask on days. . Her toll gate keeper was concerned because she was having some SVT. This was one reason she was sent to be assessed for KRISTA. Then there was a potential tachycardia on her HST. She continues to follow every 6 months with her toll gate keeper. She was to see weight loss doctor in [place]. We discussed pressure changes if needed if she loses enough weight. She will monitor her AHI on her rosie for any increase as she loses weight. She can not do any kind of stimulant type weight loss medications due to her cardiac history. This will likely be a slow process. . . Plan Compliance download reviewed Compliance download at next visit Continue with weight loss clinic at [facility] We did discuss diet exercise and weight loss for her underlying obesity. There is a possibility that this could cure her sleep apnea since her AHI is only 16 but there is no guarantee. This was discussed with the patient, all questions were answered and they agreed with the treatment plan. The patient is to call with any worsening of the condition or new symptoms. ?? Author Carri Ortega [facility]FairhillAuthoredSeptember 2024 9:49amUA unremarkable. Culture sent. Future Tests Future scheduled test information is unavailable Pending Tests Pending diagnostic test information is unavailable Future Visits Future appointment information is unavailable Future Procedures Future procedure information is unavailable Future Medications Future medication information is unavailable Patient Instructions Patient instructions are unavailable
--- NOTE | 2025-02-07 08:00 | CA_ITS ---
Patient Name: MORGAN KIRKLAND MR#: [id number] : 1990 Exam Date: 02/07/2025 Ordering Doctor: GERSON SOTO CNP ECHOCARDIOGRAM REPORT PROCEDURE: CA ECHO DOPPLER COMPLETE INDICATIONS: Dyspnea on exertion, loop recorder COMPARISON: None. DESCRIPTION: COMPLETE ECHOCARDIOGRAM Real-time transthoracic echocardiography with 2D, M-mode, spectral and color flow Doppler performed. QUALITY: Technical quality was good. LEFT VENTRICLE: Normal chamber size. Normal left ventricular wall thickness. Estimated left ventricular ejection fraction is 65%. LV EF: Normal left ventricular ejection fraction, (>55%). DIASTOLIC: Normal diastolic function. ATRIAL SEPTUM: Visually appears intact. LEFT ATRIUM: Normal chamber size. RIGHT ATRIUM: Normal chamber size. RIGHT VENTRICLE: Normal chamber size. Normal right ventricular systolic function. TRICUSPID VALVE: Normal mobility and thickness. No stenosis with trivial regurgitation. No evidence of pulmonary hypertension. RVSP 26 mmHg MITRAL VALVE: Normal mobility and thickness. No evidence of mitral valve stenosis. There is no mitral annular calcification. No mitral regurgitation. AORTIC VALVE: Normal trileaflet appearance. No visible sclerosis. Normal leaflet mobility. No evidence of aortic valve stenosis. No aortic regurgitation. AORTIC ROOT: Normal diameter and appearance, measuring 3.1 cm. PULMONIC VALVE: Normal thickness and mobility. No stenosis. No regurgitation. PERICARDIUM: No evidence of pericardial effusion. IVC: Collapses with inspiration. PLEURA: CONCLUSION: 1. Normal ventricular size and systolic function. Estimated LVEF is 65%. 2. Normal diastolic function. 3. No significant valvular dysfunction. 4. Normal right-sided pressures. Adult Echocardiography Procedure Report Left Ventricle LVEDD (3.7 - 5.6 cm): 4.27 cm LVESD (2.2 - 4.0 cm): 3.26 cm LVIVS thickness (0.6 - 1.2 cm): 0.96 cm LVPW thickness (0.5 - 1.0 cm): 0.78 cm e': 0.15 m/s E - e': 5.99 LVOT Max Gradient: 2.96 mm[Hg] LVOT Area (cm2): 0.86 m/s Peak Velocity (LVOT): 0.86 m/s Mean Velocity (LVOT): 0.59 m/s LVOT Diameter 2.36 cm Left Ventricular Ejection Fraction: 65 % Left Atrium LA Volume Index (2D A2C): 26.46 ml/m2 Left Atrium Systolic Dimension: 3.47 cm Mitral Valve MV E to A Ratio: 1.65 Mitral Valve A-Wave Peak Velocity: 0.55 m/s Mitral Valve E-Wave Peak Velocity: 0.91 m/s Right Ventricle Aorta AO Root Diam: 3.15 cm Aortic Valve AoV Area (Peak Sam): 3.49 cm2, 3.49 cm2 AoV Area (VTI): 3.26 cm2, 3.26 cm2 Peak Velocity(Antegrade Flow): 1.07 m/s Peak Gradient(Antegrade Flow): 4.61 mm[Hg] Mean Velocity(Antegrade Flow): 0.76 m/s Mean Gradient(Antegrade Flow): 2.65 mm[Hg] Velocity Time Integral: 26.52 cm Tricuspid Valve Peak Velocity (Regurgitant Flow): 2.42 m/s Pulmonic Valve Mean Gradient: 1.51 mm[Hg] Mean Velocity: 0.58 m/s Peak Velocity: 0.82 m/s Peak Gradient: 2.68 mm[Hg] Right Atrium Right Atrium Systolic Pressure: 43.67 ml, 43.67 ml Dictated by: Ricardo Diaz M.D. on 02/07/2025 at 21:25 Approved by: Ricardo Diaz M.D. on 02/07/2025 at 21:27
--- OUTSIDE RECORDS SUMMARY | 2025-02-07 08:12 | XMS_ITS | Encounter Summary ---
Author Organization [facility] Address [address] [place] [address] Care Team Providers Care Insole And Heel Stiffener Name Role Phone Carri Ortega MD Primary Care Provider [phone] Encounter Details DateTypeDepartmentCare Team (Latest Contact Info)Uewnqhuuqlu71/12/2025Orders Only [facility] [address] [place] [address] Kurt Hernadez MD [address] [place] [address] Social History Tobacco UseTypesPacks/DayYears UsedDateSmoking Tobacco: NeverSmokeless Tobacco: NeverAlcohol UseStandard Drinks/WeekCommentsYes0 (1 standard drink = 0.6 oz pure alcohol)occasionalUT Safety & EnvironmentAnswerDate RecordedFear of Current or Ex-PartnerNot on file05/07/2023Emotionally AbusedNot on file05/07/2023hysically AbusedNot on file05/07/2023Sexually AbusedNot on file05/07/2023hysically or Sexually AbusedNot on file05/07/2023CommentsUnknownSex and Gender InformationValueDate RecordedSex Assigned at BirthNot on fileLegal SexFemale 11/26/2021 1:32 PM EDTGender IdentityChoose not to ujhzisfi30/29/2025 11:13 PM EDTSexual OrientationChoose not to /29/2025 11:13 PM EDTdocumented as of this encounter Functional Status * BPAnswerDate of TqqsologudIimono104/8211/ 10:47 AM Marisol Sandoval MA * PulseAnswerDate of XrqynvbndpMbegwf1163 10:47 AM Marisol Sandoval MA * Audit Alcohol ScreeningQuestionAnswerDate of AssessmentAuthorHow often do you have a drink containing alcohol? 10:51 AM Marisol Sandoval MA * Patient PositionAnswerDate of KrgalcvwtgBjazbsDrxbjky95/13/2025 10:47 AM Marisol Cabrera MA * BPAnswerDate of WlbjkwabsyCaauej418/8211 10:47 AM Marisol Sandoval MA * PulseAnswerDate of NdnyhgemhmYcspiu8769/13/2025 10:47 AM Marisol Sandoval MA * IkQ6YhwtsbZvgl of IxjzcvxeihVmofht3803/13/2025 10:47 AM Marisol Sandoval MA * BP LocationAnswerDate of AssessmentAuthorRight arm01/26/2025 10:47 AM Marisol Cabrera MA * Audit Alcohol ScreeningQuestionAnswerDate of AssessmentAuthorHow often do you have a drink containing alcohol? 10:51 AM Marisol Sandoval MA * Patient PositionAnswerDate of IolvomfdniOouicxDsuhakv41/13/2025 10:47 AM Marisol Cabrera MA documented as of this encounter Plan of Treatment DateTypeDepartmentCare Team (Latest Contact Info)Gvpthpmifms33/16/2025 8:00 AM ESTAppointment [facility] [address] [place] [address] documented as of this encounter Procedures Procedure NamePriorityDate/TimeAssociated DiagnosisCommentsCARDIAC DEVICE CHECK - REMOTE - LOOP RECORDER (ILR)Pkzzxzc8201/25/2025 12:00 AM ESTdocumented in this encounter Results * Cardiac device check - Remote loop recorder (ILR) (01/25/2025 12:00 AM EST) Anatomical RegionLateralityModalityOtherSpecimen (Source)Anatomical Location / LateralityCollection Method / VolumeCollection TimeReceived Time01/25/2025 Narrative Authorizing ProviderResult TypeResult StatusSadandre Hernadez [facility] [place]PL[facility] CARDIAC DEVICE PROCEDURESFinal Result documented in this encounter Visit Diagnoses Not on filedocumented in this encounter Care Teams Team MemberRelationshipSpecialtyStart DateEnd Date Carri Ortega MD [address] [facility] [address] PCP - Fcogkyv14/3/22documented as of this encounter
--- OUTSIDE RECORDS SUMMARY | 2025-02-07 08:12 | XMS_ITS | Clinical Summary ---
Author Organization [facility] Address [address], [address] [place] [address] Care Team Providers Care Self Propelled Hot Mix Roller Operator Name Role Phone Carri Ortega MD Primary Care Provider [phone] Social History Tobacco UseTypesPacks/DayYears UsedDateSmoking Tobacco: Never Assessed CommentsUnknownSex and Gender InformationValueDate RecordedSex Assigned at Not on fileLegal AjgOocntm80/04/2023 3:29 PM ESTGender IdentityNot on fileSexual OrientationNot on file Plan of Treatment Health MaintenanceDue DateLast DoneCommentsDepression Doxpay4412/07/2002Varicella vaccine (1 of 2 - 13+ 2-dose series)12/08/2003HIV eafacl2212/07/2005Hepatitis C bkvcef4912/07/2008Hepatitis B vaccine (1 of 3 - 19+ 3-dose series)2009Pap smear12/08/2011Cervical cancer ovmhec7212/07/2020HPV (without or with Pap) 2020Flu vaccine (#1)5COVID-19 Vaccine ( - 2024- season) 502/12/2020, 1DTaP/Tdap/Td vaccine (2 - Td or Tdap)06/06/2029 06/07/2019HPV vaccine (No Doses Required)CompletedHepatitis A vaccineAged OutNo longer eligible based on patient's age to complete this topicHib vaccineAged Out No longer eligible based on patient's age to complete this topicMeningococcal (ACWY) vaccineAged OutNo longer eligible based on patient's age to complete this topicMeningococcal B vaccineAged OutNo longer eligible based on patient's age to complete this topicPneumococcal 0-49 years VaccineAged OutNo longer eligible based on patient's age to complete this topicPolio vaccineAged OutNo longer eligible based on patient's age to complete this topic Insurance Care Teams Team MemberRelationshipSpecialtyStart DateEnd Date Carri Ortega MD [address] [place] [id number] PCP - GeneralFamily Gybqcnoe93/15/23
--- OUTSIDE RECORDS SUMMARY | 2025-02-07 08:12 | XMS_ITS | Clinical Summary ---
Author Organization [facility] Address [address] [place] [address] Care Team Providers Care Extractor Plant Operator Name Role Phone Carri Ortega MD Primary Care Provider [phone] Allergies No known active allergies Medications MedicationSigDispense QuantityRefillsLast FilledStart DateEnd DateStatus Jvteyuuv-Hh-Fpj-Fe-FA ( VITAMIN) tab Take 1 tablet by mouth once daily.Active thiamine HCl (VITAMIN B-1 ORAL) Take 1 tablet by mouth once daily.Active ascorbic acid (VITAMIN C ORAL) Take 1 tablet by mouth once daily.Active Active Problems ProblemNoted DateDiagnosed DateBMI 35.0-35.9,adult03/29/2019Primary Sjogren's kchxyfah34/12/2016Precordial pain05/03/2015 Resolved Problems ProblemNoted DateDiagnosed DateResolved DateHeart oszqjmodikmk97/18/2016 03/29/20190009Dxzqdfuhn15SOB (shortness of breath)05/03/2015 03/29/2019 Family History Medical HistoryRelationCommentsHeartFatherMI age 44HypertensionFatherLipids FatherNoneMotherRelationStatusCommentsFatherAliveMotherAlive Social History Tobacco UseTypesPacks/DayYears UsedDateSmoking Tobacco: NeverSmokeless Tobacco: NeverAlcohol UseStandard Drinks/WeekCommentsYes0 (1 standard drink = 0.6 oz pure alcohol)occassionalArea Deprivation IndexAnswerDate RecordedNational Score (1- 100), lower number is lower riskNot on file02/22/2020State Score (1-10), lower number is lower riskNot on file02/22/2020Data from: https://www.neighborhoodatlas.medicine.[facility].edu/. Last address used for calculationNot on file02/22/2020CommentsNoSex and Gender Information ValueDate RecordedSex Assigned at BirthNot on fileLegal TqwCkyiig84/22/2014 10:13 AM EDTGender IdentityNot on fileSexual OrientationNot on fileOccupation IndustryJob Start DateJob End DateCosmetololgyNot on fileNot on fileNot on file Last Filed Vital Signs Vital SignReadingTime TakenCommentsBlood Shqxjifg133/75004/13/2017 10:24 AM EST Fgjto993304/13/2017 10:24 AM UNCJqsisqsenog35.2 ??C (97.2 ??F)06/14/2015 10:33 AM EDTRespiratory Wavq168004/13/2017 10:24 AM ESTOxygen Tyzxjcokqi757%04/13/2017 10:24 AM ESTInhaled Oxygen Concentration--Tkfrsu901.1 kg (240 lb 8 oz)03/29/2019 10:02 AM BETRyaaou417.7 cm (5' 8 )03/29/2019 10:02 AM ESTBody Mass Index36.57 03/29/2019 10:02 AM EST Plan of Treatment Health MaintenanceDue DateLast DoneCommentsAnxiety Mymulrkbg00/24/2009Depression Pxlbujrzy50/24/2009HIV Kvxosbnaj41/24/2009Hepatitis C Hmxbpjgqs08/24/2009 DTaP,Tdap,Td Vaccine (1 - Tdap)2009Hepatitis B Vaccine (1 of 3 - 19+ 3- dose series)2009Cervical Cancer Tblqawaud04/24/2012HPV Vaccine (1 - 3-dose SCDM series)2017Covid-19 Vaccine (1 - 2024- season)2024Influenza Vaccine (#1)2024 Insurance Care Teams Team MemberRelationshipSpecialtyStart DateEnd Date Carir Ortega MD [address] [facility] [place] [address] PCP - GeneralFamily Medicine11/04/13
--- OUTSIDE RECORDS SUMMARY | 2025-02-07 08:12 | XMS_ITS | Clinical Summary ---
Author Organization [facility] Address [address] [place] [address] Care Team Providers Care Auto Motor Mechanic Name Role Phone Carri Ortega MD Primary Care Provider [phone] Allergies Active AllergyReactionsCriticalityNoted DateCommentsIodineRash,UnknownLow 12/04/20236202OnktpFgepoet67/10/2024 Stimulants Penicillin GRash,TtgetBxd30/10/2022ovidone NpvlddHnxaCkp14/10/2024 Povidone-PzhldeSvnqOhp78/19/2023 Medications MedicationSigDispense QuantityRefillsLast FilledStart DateEnd DateStatus metoprolol tartrate (Lopressor) 75 MG tablet every 12 (twelve) hours.Active hydroCHLOROthiazide (Microzide) 12.5 MG capsule Take 12.5 mg by mouth in the morning.5Active Active Problems ProblemNoted DateDiagnosed LhhyTljamvl89/13/2024OSA (obstructive sleep apnea) 07/24/20238495Ikaoilt09/10/2024LMD (periodic limb movement disorder)07/24/2023 Bbojvqugazh84/10/2024Obesity due to excess calories, unspecified obesity nghlvuuq43/10/2024 Encounters DateTypeDepartmentCare YorqDezwxknqufm24/12/2025 11:30 AM EDTOffice Visit [facility] [address] [place] [phone] Dasha Garcia DO Encounter for gynecological examination without abnormal finding; Encounter for screening for malignant neoplasm of owykno1511/25/2024amboo flowsheet [facility] [place] [facility] [address] [place] [address] Dasha Garcia DO 11/25/2024Travelfrom Last 3 Months Family History Medical HistoryRelationNameCommentsHeart diseaseBrother 1HypertensionBrother 1 OtherBrother 2blood clot-legHeart diseaseFatherDiabetesFather's BrotherDiabetes Father's SisterHeart diseaseFather's SisterProstate cancerMaternal Grandfather DiabetesMaternal GrandmotherHypertensionMotherOtherMotherVaricose veinsDiabetes Paternal GrandfatherHeart diseasePaternal GrandfatherHeart diseasePaternal GrandmotherRelationNameStatusCommentsBrother 1Brother 2DaughterAliveFather Father's BrotherAliveFather's SisterAliveMaternal GrandfatherMaternal GrandmotherMotherPaternal GrandfatherPaternal GrandmotherSonAlive Social History Tobacco UseTypesPacks/DayYears UsedDateSmoking Tobacco: NeverSmokeless Tobacco: Never Tobacco Cessation:Counseling Given: Not Answered Alcohol UseStandard Drinks/WeekCommentsNot Currently1 (1 standard drink = 0.6 oz pure alcohol)Caffeine intake: noneEducationAnswerDate RecordedWhat is the highest level of school you have completed or the highest degree you have received?High school tvqydtcn17/22/2023CommentsUnknownSex and Gender InformationValueDate RecordedSex Assigned at BirthNot on fileLegal SexFemale 05/28/2022 7:11 PM EDTGender AmebyiggMaoznw70/15/2023 7:11 PM EDTSexual OrientationNot on file Last Filed Vital Signs Vital SignReadingTime TakenCommentsBlood Hzsbjtjv977/7809 11:27 AM EDT Iqeji540902/08/2024 8:30 AM ESTTemperature--Respiratory Rate--Oxygen Uoeytxjhsr71% 07/27/2023 3:09 PM EDTInhaled Oxygen Concentration--Xqvvwk251 kg (289 lb) 11/25/2024 11:27 AM MVNDxsyik686.7 cm (5' 8 )02/08/2024 8:30 AM ESTBody Mass Index43.9402/08/2024 8:30 AM EST Plan of Treatment DateTypeDepartmentCare Team (Latest Contact Info)Guxbdezkbto54/18/2026 11:45 AM EDTOffice Visit [facility] [place] [facility] [address] [place] [phone] Dasha Garcia DO [address] [place] [address] Health MaintenanceDue DateLast DoneCommentsCOVID-19 Vaccine ( season) , 04/25/2020, 03/28/2020, Additional history existsInfluenza Vaccine (#1)11/14/2024Pap Smear/ervical Cancer Screening 10/18/2027HPV/Tioswz95/06/2022, 08/16/2021, 08/03/2020, Additional history existsPneumococcal Vaccine: Pediatrics (0 to 5 Years) and At-Risk Patients (6 to 64 Years)Aged OutNo longer eligible based on patient's age to complete this topic Procedures Procedure NamePriorityDate/TimeAssociated DiagnosisCommentsIGP, RFX APTIMA HPV BVYFIcttgbg75/12/2025 12:00 AM EDT Encounter for screening for malignant neoplasm of vagina THINPREP TIS PAP W/REFL HPV MRNA E6/E2Pncuycz58/04/2023 10:10 AM EDT Screening for malignant neoplasm of cervix from Last 3 Months or Most Recently Relevant to Health Maintenance Results * IGP, RFX APTIMA HPV ASCU (11/25/2024 12:00 AM EDT)ComponentValueRef RangeTest MethodAnalysis TimePerformed AtPathologist SignatureDiagnosis:CommentLABC[facility]P Comment:NEGATIVE FOR INTRAEPITHELIAL LESION OR MALIGNANCY.Specimen Adequacy: CommentLABCORPComment: Satisfactory for evaluation. ??No endocervical cells are present. ??This is consistent with a history of hysterectomy. Clinician Provided ICD10:CommentLABCORPComment:Z12.72Performed By:CommentLABC[facility] Comment:Cassie Leblanc, Chemical Checker ([facility])Cyto Comments.LABCORPNote:Comment[facility] Comment: The Pap smear is a screening test designed to aid in the detection of premalignant and malignant conditions of the uterine cervix. ??It is not a diagnostic procedure and should not be used as the sole means of detecting cervical cancer. ??Both false-positive and false-negative reports do occur. Test Methodology:CommentLABCORPComment: This liquid based ThinPrep(R) pap test was screened with the use of an image guided system. .CommentLABCORPComment: The HPV DNA reflex criteria were not met with this specimen result therefore, no HPV testing was performed. Specimen (Source)Anatomical Location / LateralityCollection Method / Volume Collection TimeReceived Time509/ Narrative [facility] - 11/29/2024 1:07 PM EDT Performed at: 01 - [address], [place] ??[id number] Base Filler: Adriana Shah MD, Phone: ??[phone] Specimen Comment: [id number] Specimen Comment: No. of containers..01 ThinPrep Vial Authorizing ProviderResult TypeResult StatusKathomer Garcia [facility] BLOOD ORDERABLESFinal ResultPerforming OrganizationAddressCity/State/ZIP CodePhone Number [facility] * THINPREP TIS PAP W/REFL HPV MRNA E6/E7 (10/17/2022 10:10 AM EDT)ComponentValue Ref RangeTest MethodAnalysis TimePerformed AtPathologist SignatureCLINICAL INFORMATIONQUESTComment:None givenLMPQUESTComment:10/08/22PREV. PAPQUEST Comment:RE. BXQUESTComment:NONE GIVENSOURCEQUESTComment:Cervix, EndocervixSTATEMENT OF ADEQUACYQUESTComment: Satisfactory for evaluation. Endocervical/transformation zone component present. INTERPRETATION/RESULTQUESTComment: Cytology Results: Negative for intraepithelial lesion or malignancy. CYTOTECHNOLOGISTQUESTComment: RALPH MENDOZA(ASCP) CT screening location: [facility] [address], [place] [address]. (ALWAYS MESSAGE)QUESTComment: EXPLANATORY NOTE: The Pap is a screening test for cervical cancer. It is not a diagnostic test and is subject to false negative and false positive results. It is most reliable when a satisfactory sample, regularly obtained, is submitted with relevant clinical findings and history, and when the Pap result is evaluated along with historic and current clinical information. Specimen (Source)Anatomical Location / LateralityCollection Method / Volume Collection TimeReceived GhyvEhjrc84/04/2023 10:10 AM EDT10/18/2022 3:17 AM EDT Narrative Resulting Agency Comment Performing Organization Information ?Site ID: [id number] ?Name: [facility] ?Address: [address] [place] [phone] ?Director: Chencho Ferris MD Authorizing ProviderResult TypeResult StatusKathomer Garcia [facility] ORDERABLESFinal ResultPerforming OrganizationAddressCity/State/ZIP CodePhone Number [facility] from Last 3 Months or Most Recently Relevant to Health Maintenance Insurance Care Teams Team MemberRelationshipSpecialtyStart DateEnd Date Carri Ortega MD [address] [place] [address] [facility] Medicine08/07/22
--- OUTSIDE RECORDS SUMMARY | 2025-02-07 08:12 | XMS_ITS | Clinical Summary ---
Author Organization [facility] Address [address] [place] [address] Care Team Providers Care Intensive Care Ambulance Paramedic Name Role Phone Carri Ortega MD Primary Care Provider [phone] Allergies Active AllergyReactionsCriticalityNoted DateCommentsIodineRash,UnknownLow 12/04/20231727FumakQlaeyjf36/10/2024 Stimulants YycbdhkmilPjihKjt35/10/2022ovidone-MeklwaHuxzGlf55/19/2023 Medications MedicationSigDispense QuantityRefillsLast FilledStart DateEnd DateStatus hydroCHLOROthiazide (Microzide) 12.5 mg capsule Take 12.5 mg by mouth in the morning.Active metoprolol tartrate 75 mg tablet Indications:PalpitationsTake 1 tablet (75 mg) by mouth two times daily. 180 tablet /ctive SAFFRON EXTRACT ORAL Take 1 tablet by mouth 3 (three) times a week.Active Active Problems ProblemNoted DateDiagnosed DateRight ankle pain01/26/2025Right ankle sprain 01/26/20250302Kedmawhydnytdj62/07/2025bnormal weight gain02/16/2024ADHD104/18/2023 Daytime wdgqwaaawj10/03/3984Zjhutmqfka02/03/2024Family history of kidney stones 02/16/20245280Gzcvvyp72/03/2024Lower extremity edema02/16/20242773Uisgrq64/03/2024 Ermlhfe6807/27/20234318Acvkfcmfmeu32/10/2024Obstructive sleep apnea hrxwyqdm02/10/2024 PLMD (periodic limb movement disorder)07/24/20233733Erkctwyozbm29/23/202404/ History of other genital system and obstetric / Nbvslmazjxa87S/P laparoscopic pwgryvghsusl04 Postural dizziness with near azezrxp7701/09/2023History of kidney trrrgg1009/10/2022 09/10/2022idney stoneLeft sided abdominal pain09/10/2022 09/10/2022MRSA vojszgdqxv35/28/Recurrent UTI09/10/ Ejfyblzhsxj66/28/Urinary ufvtkapms97Urinary xrlpixa97Verruca wnvljxdd56cute bronchitis 03/28/20220692Odzotvg72/13/2023ack pain03/28/20229792Dcteabku13/13/2023ontact izsnntyodb72/13/0927Kapmne13/13/2023Epigastric pain03/28/2022Fibromyalgia 03/28/2022astroesophageal reflux rvtlxdo8903/28/2022ross awktwfwmh76/13/2023 Liqjldturbzt38/13/2023 Assessment & Plan (04/09/2022 4:09 PM EST): hypertension is stable today. Otitis media03/28/20222659Bvibawaukiqx89/13/2023 Assessment & Plan (04/09/2022 4:09 PM EST): - Event monitor was not reported as read -There are some concerns for an atrial arrhythmia -I will increase metoprolol to tartrate to 50 mg twice daily -I will have her see Dr. Barone follow-up to discuss her event monitor -She is in the meantime to call with any worsening symptoms, intolerance of metoprolol, and any syncopal events Right flank pain03/28/2022Spontaneous mrezxkqhxs79/13/2023Symptoms involving urinary zidzmy2503/28/20220045Lloxnci04/13/2023BMI 35.0-35.9,adult03/29/2019Primary Sjogren's lxiztfhg89/12/2016Precordial pain05/03/2015 Encounters DateTypeDepartmentCare DognTbknkcdyyhq98/13/2025 10:20 AM ESTOffice Visit [facility] [address] [facility] [address] Amada Stewart CNP Family history of DVT (Primary Dx); Dyspnea on exertion; Family history of premature CAD; Palpitations; Other chest pain; Primary hypertension; Status post placement of implantable loop recorder; Family history of blood clots103/27/2024 8:35 AM ESTAncillary Procedure [facility] [address] [place] [phone] Awareness of /12/2025Orders Only [facility] [address] [place] [phone] Kurt Hernadez MD 12/26/2024 7:30 AM EDTAncillary Procedure [facility] [address] [place] [phone] Awareness of nunsiyqmbx84/13/2025[facility] [address] [facility] [place] [address] Amada Stewart CNP Hpwgiivwxiiy00/12/2025Orders Only [facility] [address] [place] [phone] Kurt Hernadez MD 12/01/2024Orders Only [facility] [address] [place] [phone] Kurt Hernadez MD 11/24/2024 6:30 AM EDTAncillary Procedure [facility] [address] [place] [phone] Awareness of heartbeatsfrom Last 3 Months Immunizations ImmunizationAdministration DatesNext DueHep B, adult07/01/2018,05/21/2018Moderna SARS-CoV-2 Afhkkykobvt07/10/2021,03/28/2020Tdap06/07/2019 Family History Medical HistoryRelationNameCommentsClotting disorderFatherCoronary artery diseaseFatherHeart attackFatherRelationNameStatusCommentsFatherAliveMotherAlive Social History Tobacco UseTypesPacks/DayYears UsedDateSmoking Tobacco: NeverSmokeless Tobacco: Never Tobacco Cessation:Counseling Given: Not Answered Alcohol UseStandard Drinks/WeekCommentsYes0 (1 standard drink = 0.6 oz pure alcohol)occasionalUT Safety & EnvironmentAnswerDate RecordedFear of Current or Ex-PartnerNot on file05/07/2023Emotionally AbusedNot on file05/07/2023hysically AbusedNot on file05/07/2023Sexually AbusedNot on file05/07/2023hysically or Sexually AbusedNot on file05/07/2023CommentsUnknownSex and Gender InformationValueDate RecordedSex Assigned at BirthNot on fileLegal SexFemale 11/26/2021 1:32 PM EDTGender IdentityChoose not to cujzybsr84/29/2025 11:13 PM EDTSexual OrientationChoose not to rribmsyy72/29/2025 11:13 PM EDT Last Filed Vital Signs Vital SignReadingTime TakenCommentsBlood Bgxeszdo999/8211 10:47 AM EST Xizya963401/26/2025 10:47 AM ESTTemperature--Respiratory Yuem5360 12:40 PM EDTOxygen Okvrsqtfkq71%01/26/2025 10:47 AM ESTInhaled Oxygen Concentration-- Rvnhtl246 kg (293 lb)01/26/2025 10:47 AM CBFJtrvin573.2 cm (5' 7 )01/26/2025 10:47 AM ESTBody Mass Index45.8901/26/2025 10:47 AM EST Plan of Treatment DateTypeDepartmentCare Team (Latest Contact Info)Iqqljwdjxce90/16/2025 8:00 AM ESTAppointment [facility] [address] [place] [address] Health MaintenanceDue DateLast DoneCommentsDepression Zfnaklylm64/24/2003 Varicella Vaccines (1 of 2 - 13+ 2-dose series)12/08/2003Pap Smear12/08/2011HPV Vaccines (1 - 3-dose SCDM series)2017Hepatitis B Vaccines (3 of 3 - 19+ 3- dose series)/, 05/21/2018Cervical Cancer Ciaaxisgp32/24/2021 HPV/Fvduvw2912/07/2020OVID-19 Vaccine (2024- season)5004/25/2020, 04/25/2020, 03/28/2020, Additional history existsInfluenza Vaccine (#1) 11/14/2024dult Auvbzrj42/24/Zoster Vaccines (1 of 2)2040HIB VaccinesAged OutNo longer eligible based on patient's age to complete this topic IPV VaccinesAged OutNo longer eligible based on patient's age to complete this topicMeningococcal B VaccineAged OutNo longer eligible based on patient's age to complete this topicMeningococcal VaccineAged OutNo longer eligible based on patient's age to complete this topicPneumococcal Vaccine: Pediatrics (0 to 5 Years) and At-Risk Patients (6 to 64 Years)Aged OutNo longer eligible based on patient's age to complete this topicRotavirus VaccinesAged OutNo longer eligible based on patient's age to complete this topic Medical Devices ImplantedTypeAreaManufacturerDevice IdentifierShelf Expiration DateModel / Serial / LotMonitor,Cardiac,Mobile,Luxdx - [id number] - [id number] Implanted:Qty: 1 on 08/21/2022 by [facility]Implantable Loop RecorderBoston Lfoynwgyqq41/20/[id number] / [id number] / Procedures Procedure NamePriorityDate/TimeAssociated DiagnosisCommentsCARDIAC DEVICE CHECK CHECK - NZDBIUPpjcche91/12/2025 4:51 PM EST Awareness of heartbeats CARDIAC DEVICE CHECK - REMOTE - LOOP RECORDER (ILR)Gqdgbbm3201/25/2025 12:00 AM ESTCARDIAC DEVICE CHECK CHECK - MEACWOFmreawu73/17/2025 10:58 AM EDT Awareness of heartbeats CARDIAC DEVICE CHECK - REMOTE - LOOP RECORDER (ILR)Anufpwx1712/25/2024 12:00 AM EDTCARDIAC DEVICE CHECK CHECK - VAOYLMTaklxef60/22/2025 10:12 AM EDT Awareness of heartbeats CARDIAC DEVICE CHECK - REMOTE - LOOP RECORDER (ILR)Wyphulc7712/01/2024 12:00 AM EDTfrom Last 3 Months Results * CARDIAC DEVICE CHECK - REMOTE - LOOP RECORDER (ILR) (01/25/2025 4:51 PM EST) Only the most recent of3 resultswithin the time period is included. Specimen (Source)Anatomical Location / LateralityCollection Method / Volume Collection TimeReceived Time Narrative Authorizing ProviderResult TypeResult StatusBlair Lashonda MDCV IMPLANTABLE CARDIAC DEVICE PROCEDURESFinal ResultPerforming OrganizationAddressCity/State/ZIP Code Phone Number CPACS * Cardiac device check - Remote loop recorder (ILR) (01/25/2025 12:00 AM EST) Only the most recent of3 resultswithin the time period is included. Anatomical RegionLateralityModalityOtherSpecimen (Source)Anatomical Location / LateralityCollection Method / VolumeCollection TimeReceived Time01/25/2025 Narrative Authorizing ProviderResult TypeResult StatusSamer Breann Fischeri [facility] [place] IMPLANTABLE CARDIAC DEVICE PROCEDURESFinal Result from Last 3 Months Insurance Advance Directives * Full Code (Latest Code Status on File) Date ActivatedDate InactivatedComments08/21/2022 12:32 PM08/21/2022 2:51 PM Care Teams Team MemberRelationshipSpecialtyStart DateEnd Date Carri Ortega MD [address] [facility] [address] PCP - Vuexmtc55/3/22
--- OUTSIDE RECORDS SUMMARY | 2025-02-07 08:15 | XMS_ITS | CCD ---
Author Organization [facility] Care Team Providers Care Precision Lens Grinder Name Role Phone David Newberry Unavailable DAVID NEWBERRY Primary Care Physician [phone] ROHITH, DR DAVID Fisher Admitting Unavailable NEWBERRY, DR DAVID Fisher Primary Care Unavailable NEWBERRY, DR DAVID Fisher Attending Unavailable NEWBERRY, DR DAVID Fisher Attending Unavailable NEWBERRY, DR DAVID Fisher Admitting Unavailable NEWBERRY, DR DAVID Fisher Primary Care Unavailable NEWBERRY, DR DAVID Fisher Consulting Unavailable NEWBERRY, DR DAVID Fisher Primary Care Unavailable BOLAÑOS ., DR RODAS Admitting Unavailable BOLAÑOS ., DR RODAS Consulting Unavailable BOLAÑOS ., DR RODAS Attending Unavailable IRIS FUNEZ Consulting Unavailable NEWBERRY, DR DAVID Fisher Primary Care Unavailable BOLAÑOS ., DR RODAS Admitting Unavailable BOLAÑOS ., DR RODAS Consulting Unavailable BOLAÑOS ., DR RODAS Attending Unavailable HAKAN, DR [...] NEWBERRY, DR DAVID Fisher Primary Care Unavailable BOLAÑOS ., DR RODAS Admitting Unavailable BOLAÑOS ., DR RODAS Consulting Unavailable BOLAÑOS ., DR RODAS Attending Unavailable JOANNA VAZ Consulting Unavailable NEWBERRY, DR DAVID Fisher Primary Care Unavailable BOLAÑOS ., DR RODAS Consulting Unavailable BOLAÑOS ., DR RODAS Attending Unavailable BOLAÑOS ., DR RODAS Admitting Unavailable KEITH PLASENCIA Consulting Unavailable DELFINO COVINGTON Consulting Unavailable MD David Newberry Primary Care Provider DO Dasha Garcia Attending Provider MD David Newberry Primary Care Provider DO Dasha Garcia Attending Provider MD Enrique Lucas Attending Provider [phone] David Newberry MD Primary Care Provider [phone] DAVID NEWBERRY Primary Care Unavailable ELANA RAMIREZ Referring Unavailable BOLAÑOS, Clark R Attending Unavailable BOLAÑOS, Clark R Admitting Unavailable BOLAÑOS, Clark R Attending Unavailable BOLAÑOS, Clark R Admitting Unavailable BOLAÑOS, Clark R Attending Unavailable BOLAÑOS, Clark R Attending Unavailable David Newberry MD Primary Care Provider [phone] BOLAÑOS, Clark R Attending Unavailable BOLAÑOS, Clark R Attending Unavailable BOLAÑOS, Clark R Attending Unavailable BOLAÑOS, Clark R Admitting Unavailable BOLAÑOS, Clark R Attending Unavailable BOLAÑOS, Clark R Attending Unavailable BOLAÑSO, Clark R Attending Unavailable BOLAÑOS, Clark R Admitting Unavailable David Newberry MD Primary Care Provider Alice Olivas APRN Attending Provider [phone] David Newberry MD Primary Care Provider David Newberry MD Attending Provider [phone] David Newberry Attending Unavailable David Newberry Primary Care Unavailable David Newberry Admitting Unavailable Alice Olivas Admitting Unavailable David Newberry Primary Care Unavailable Alice Olivas Attending Unavailable David Newberry MD Primary Care Provider [phone] DASHA GARCIA Attending Unavailable JOANNA POTTER Attending Unavailable ROYER DINH Attending Unavailable FEDE, CRISTIAN Referring Unavailable FEDE, CRISTIAN Referring Unavailable FEDE, CRISTIAN Referring Unavailable FEDE, CRISTIAN Referring Unavailable FEDE, CRISTIAN Referring Unavailable FEDE, CRISTIAN Referring Unavailable FEDE, CRISTIAN Referring Unavailable FEDE, CRISTIAN Referring Unavailable DOUGGEENA Flores Referring Unavailable FEDE, CRISTIAN Referring Unavailable FEDE, CRISTIAN Referring Unavailable FEDE, CRISTIAN Referring Unavailable GERSON SOTO Attending Unavailable Allergies Allergy ClassificationReported Allergen(s)Allergy TypeDate of OnsetReaction(s) Facility (20 sources)Penicillin; Translations: [penicillin]Drug Pifpglf60-96-8253mghk, Weal (disorder)General Surgery [facility] (2 sources)Allergies ReconciledPropensity to adverse reactionsOur Lady of Fat[facility] Hospital OceanT[employer]er Other (2 sources)Substance with penicillin structure and antibacterial mechanism of action (substance)Drug onhwvvm96-02-3904KpwxfmjRzxgg [employer] Other (2 sources)patient allergy list reviewed by nurse or physiciaPropensity to adverse bwfootfhp79-24-8992Offiert:[employer] Other (12 sources)Penicillins; Translations: [Penicillins]Allergy to substance 75-03-5097BqqbGnzyqszneMercy Health St. Elizabeth Boardman HospitalComment on above:Onset Date: 01/19/2013 (19 sources)Povidone-Iodine; Translations: [povidone iodine topical]Drug Allergy 89-24-6889Zbwgofiv of skin (disorder), RashExecutive Urology of [facility] (20 sources)Iodine; Translations: [Iodine]Drug Lbeurtq41-76-1018Dyiaeec (qualifier value), Rash, UnknownKeenan Private Hospital (9 sources)Penicillin GDrug Llaictm41-64-7912Ehih, OtherResearch Medical Center (9 sources)Povidone-IodineDrug Golcyai21-66-8301GrvxERXK Healthcare (10 sources)Other; Translations: [OTHER]Propensity to adverse reactions 36-98-5608FjjohomOUNG Healthcare Medications Current Medications MedicationDrug Class(es)DatesSig (Normalized)Sig (Original)cetirizine hydrochloride 10 mg oral tablet (7 sources)Histamine-1 Receptor AntagonistStart: 36-66-0975gblg 1 tablet by mouth every twenty-four hoursCetirizine HCl 10 MG 1 tablet Orally Once a day for 14 days Mar, ActiveCpap (Continuous Positive Airway Pressure) unit (2 sources)Start: 79-55-5403Nvje (Continuous Positive Airway Pressure) unit Active 0 .Route 1 October 27, 2024 12:00am All supplies and masks for one year fluconazole 150 mg oral tablet (8 sources)Azole AntifungalStart: 11-18-2023 End: 74-81-1306xbvngydmctr (Diflucan) 150 MG tablet Indications: Yeast infection One tablet every 3 days for 3 doses 3 tablet 11/18/2023 11/25/2024 Discontinued fluticasone propionate 0.05 mg/actuat metered dose nasal spray (7 sources)CorticosteroidStart: 30-66-4503fqzp 1 spray(s) nasal route twice dailyFlonase Allergy Relief 50 MCG/ACT 1 spray in each nostril Nasally Twice a day for 14 day(s) ActivehydroCHLOROthiazide 12.5 mg oral capsule (7 sources)Thiazide DiureticStart: 88-12-8901kblv 1 capsule by mouth in the morninghydroCHLOROthiazide (Microzide) 12.5 MG capsule Take 12.5 mg by mouth in the morning. 05/06/2024 Activemetoprolol tartrate 75 mg oral tablet (20 sources)beta-Adrenergic BlockerStart: 22-77-5251mfym 1 tablet by mouth twice dailyStart: 70-19-3120Jyzzqrxsu 25 mg oral tablet Refills(s) 0 Start Date: 05/19/22 Status: Orderedmetoprolol tartrate (Lopressor) 75 MG tablet every 12 (twelve) hours. Activetake 1 tablet by mouth twice dailyMetoprolol Tartrate 50 MG 1 tab Orally Twice a day for 30 day(s) Activesulfamethoxazole 800 mg / trimethoprim 160 mg oral tablet (7 sources)Dihydrofolate Reductase Inhibitor Antibacterial, Sulfonamide AntimicrobialStart: 03-05-7877kldj 1 tablet by mouth every twelve hoursBactrim DS 800-160 MG 1 tablet Orally Twice a day for 10 day(s) Mar, Active Completed/Discontinued Medications MedicationDrug Class(es)DatesSig (Normalized)Sig (Original)smoking cessation 12 hr buPROPion hydrochloride 150 mg extended release oral tablet (4 sources)AminoketoneStart: 12-09-2023 End: 80-80-5348Eeppckmqj Hcl (Smoking Deter) 150 mg tablet extended release 12 hr Discontinued 150 MG PO Twice daily 60 December 09, 2023 12:00am August 08, 2024 11:10am Take one tablet daily days 1-7 then increase to twice daily dosingcefTRIAXone (16 sources)Cephalosporin AntibacterialStart: 79-57-8252Upslgykd 500 mg Oct, 1 gStart: 09-38-2642Iwjwwkgv 500 mg Nov, 500 mgdocusate sodium 100 mg oral capsule (20 sources)Start: 12-29-2022 End: 56-24-6551phzi 1 capsule by mouth twice daily as needed for constipation Docusate Sodium (Colace) 100 mg capsule Discontinued 100 MG PO Twice daily as needed for constipation December 29, 2022 1:00pm July 24, 2023 8:35amStart: 06-07-2019 End: 26-40-8732xdtb 1 capsule by mouth twice daily as needed for constipation Docusate Sodium (Colace) 100 mg capsule Discontinued 100 MG PO Twice daily as needed for constipation June 07, 2019 8:07am December 15, 2022 2:43pm ibuprofen 600 mg oral tablet (20 sources)Nonsteroidal Anti-inflammatory DrugStart: 12-29-2022 End: 46-61-6501vglg 1 tablet by mouth every six hours as needed for pain Ibuprofen 600 mg tablet Discontinued 600 MG PO Q6H as needed for pain December 29, 2022 12:00amMa2023 8:35amStart: 06-07-2019 End: 21-64-6279xblr 1 tablet by mouth every six hours as needed for pain Ibuprofen 600 mg tablet Discontinued 600 MG PO Q6H as needed for pain June 07, 2019 12:00am December 15, 2022 2:43pmnaltrexone hydrochloride 50 mg oral tablet (4 sources)Opioid AntagonistStart: 12-09-2023 End: 82-97-7505Ensmeopqtl 50 mg tablet Discontinued 25 MG PO Daily December 09, 2023 12:00August 08, 2024 11:10am Take 1/4 tab for initial 4 days.naproxen 500 mg oral tablet (4 sources)Nonsteroidal Anti-inflammatory DrugStart: 08-08-2024 End: 86-96-7541wqcp 1 tablet by mouth twice daily as needed for painNaproxen 500 mg tablet Discontinued 500 MG PO Twice daily as needed for pain 30 August 08, 2024 12:00am August 08, 2024 12:00pmnitroglycerin 0.3 mg sublingual tablet (1 source)Nitrate VasodilatorStart: 02-27-2023 End: 93-70-1382gfqcdYZNZEBGK (NITROSTAT) SL tablet 0.3 mgPrenatal Vit 42-Ejmg-Cfwep-Dha ( + Dha) 28 mg iron- 975 mcg-200 mg Combo Pack (12 sources)Start: 04-21-2019 End: 25-66-8829ayju 1 tablet by mouth once dailyPrenatal Vit 21-Infe-Kerdq-Dha ( + Dha) 28 mg iron- 975 mcg-200 mg Combo Pack Discontinued 1 TAB PO Daily April 21, 2019 12:00am December 15, 2022 1:43pmStart: 04-21-2019 End: 39-02-8029jarn 1 tablet by mouth once dailyPrenatal Vit 18-Tgip-Kgkrd-Dha ( + Dha) 28 mg iron- 975 mcg-200 mg Combo Pack Discontinued 1 TAB PO Daily April 21, 2019 1:00am December 15, 2022 2:43pmSemaglutide (Weight Loss) (5 sources)Start: 12-04-2023 End: 97-81-2124Oecjozaryfp (Weight Loss) (Wegovy) 0.25 mg/0.5 mL pen injector Discontinued 0.25 MG SUBCUT every week 2 December 04, 2023 12:00am December 09, 2023 7:22am Administer weeks 1 through 4 of therapyStart: 12-04-2023 Semaglutide (Weight Loss) (Wegovy) 0.25 mg/0.5 mL pen injector Active 0.25 MG SUBCUT every week 2 December 04, 2023 12:00am Administer weeks 1 through 4 of therapytraMADol hydrochloride 50 mg oral tablet (11 sources)Opioid AgonistStart: 12-29-2022 End: 90-24-5496sesj 1 tablet by mouth every six hours as needed for painTramadol 50 mg tablet Discontinued 50 MG PO Q6H as needed for pain 30 December 29, 2022 12:00am July 24, 2023 8:35am Problems Active Problems Problem ClassificationProblemDateDocumented DateEpisodic/ChronicAbdominal pain (20 sources)Abdominal pain; Translations: [Unspecified abdominal pain]Onset: 14-33-5654XqsxlqnhJqepijc on above:Problem List clean-up per request of Phys. EHR CmteAcute bronchitis (10 sources)Acute bronchitis; Translations: [Acute bronchitis, unspecified] Onset: 479985-22-9522AlqoejsjPhpdqydx reactions (20 sources)Contact dermatitis; Translations: [Eczema]Onset: 06-18-2017 57-68-4889UzzdgayiMqnyini disorders (10 sources)Anxiety; Translations: [Anxiety disorder]Onset: ChronicAttention-deficit, conduct, and disruptive behavior disorders (9 sources)Attention deficit hyperactivity disorder; Translations: [Attention- deficit hyperactivity disorder, unspecified type]35-36-9555KvgnbdcXwjcdfsvr- deficit, conduct, and disruptive behavior disorders (4 sources)Attention deficit hyperactivity disorder, predominantly inattentive type; Translations: [Attention-deficit hyperactivity disorder, predominantly inattentive type]53-47-3418PpqcilfIpuybdtig infection; unspecified site (9 sources)Methicillin resistant Staphylococcus aureus infection; Translations: [Personal history of Methicillin resistant Staphylococcus aureus infection] Onset: 491740-12-7797QftocjctYkyisjec of urinary tract (20 sources)History of calculus of kidney; Translations: [Personal history of urinary calculi]Onset: 26-05-8223KmioiswxSlggqlz obstructive pulmonary disease and bronchiectasis (2 sources)Bronchitis; Translations: [Bronchitis, not specified as acute or chronic]EpisodicCoagulation and hemorrhagic disorders (10 sources)Spontaneous ecchymosis; Translations: [Spontaneous ecchymoses]Onset: 750656-08-8935BahlsflkPaub; stupor; and brain damage (11 sources)Daytime somnolence; Translations: [Somnolence]EpisodicConditions associated with dizziness or vertigo (2 sources)Postural dizziness; Translations: [Dizziness and giddiness]Onset: 516102-75-3017SqtkyfufRgvhsazjaaplb (11 sources)Uterine adenomyosis; Translations: [Adenomyosis of uterus]12-29-2022 ChronicComment on above:Problem List clean-up per request of Phys. EHR Cmte Esophageal disorders (11 sources)Gastroesophageal reflux disease; Translations: [Gastro-esophageal reflux disease without esophagitis]Onset: 398557-96-2397IjhmordZffcuvnyj hypertension (20 sources)Hypertensive disorder; Translations: [Essential (primary) hypertension]Onset: 457151-91-3625RcgvgmjFbzjwkj on above:Problem List clean-up per request of Phys. EHR CmteGenitourinary symptoms and ill-defined conditions (20 sources)Urgent desire to urinate; Translations: [Urgency of urination]Onset: 85-50-7064UobkddwcDllllquos (2 sources)Upper respiratory tract infection due to Influenza; Translations: [Influenza due to unidentified influenza virus with other respiratory manifestations]EpisodicMalaise and fatigue (20 sources)Other fatigue; Translations: [Fatigue]EpisodicMenstrual disorders (11 sources)Menorrhagia; Translations: [Excessive and frequent menstruation with regular cycle]25-97-3591RaiutdwLseuelp on above:Problem List clean-up per request of Phys. EHR CmteMood disorders (16 sources)Depressive disorder; Translations: [Depression]03-15-5225Tlltfkv Other circulatory disease (2 sources)Elevated blood-pressure reading without diagnosis of hypertension; Translations: [Elevated blood-pressure reading, without diagnosis of hypertension]EpisodicOther connective tissue disease (8 sources)Sixmtoar82-68-0233OoyeqqanFjjhk connective tissue disease (10 sources)Fibromyalgia; Translations: [Fibromyalgia]Onset: 02-13-2015 70-11-5753WqfbekohPbdeb connective tissue disease (1 source)Fibromyalgia; Translations: [FIBROMYALGIA]Onset: 26-73-9383Odqajdri Other female genital disorders (12 sources)History of past delivery; Translations: [Status post vaginal delivery]93-59-7935KpfznvxbHjgahps on above:Problem List clean-up per request of Phys. EHR CmteOther lower respiratory disease (9 sources)Snoring; Translations: [Snoring]57-51-2746FerpzqlrDwtui non-traumatic joint disorders (6 sources)Ankle pain; Translations: [Pain in right ankle and joints of right foot]06-32-2607JsnterifDhalw nutritional; endocrine; and metabolic disorders (8 sources)Body mass index 30+ - rettstj48-30-7589QmjtqbcMvvjz nutritional; endocrine; and metabolic disorders (6 sources)Obese class II; Translations: [Body mass index (BMI) 37.0-37.9, adult]ChronicOther nutritional; endocrine; and metabolic disorders (2 sources)Obese class I; Translations: [Body mass index 34.0-34.9, adult]Onset: 64-02-9964CfoiiclSpdmy nutritional; endocrine; and metabolic disorders (10 sources)Body mass index 40+ - severely obese; Translations: [Body mass index (BMI) 40.0-44.9, adult]42-75-0882CachjldTitmd nutritional; endocrine; and metabolic disorders (1 source)Severe obesity; Translations: [Morbid (severe) obesity due to excess calories]ChronicOther nutritional; endocrine; and metabolic disorders (8 sources)Morbid (severe) obesity due to excess calories; Translations: [Morbid obesity]ChronicOther nutritional; endocrine; and metabolic disorders (1 source)Body mass index (BMI) 40.0-44.9, adultChronicOther nutritional; endocrine; and metabolic disorders (11 sources)Obesity caused by energy imbalance; Translations: [Other obesity due to excess calories]Onset: 872866-87-7059XrzcbweWznkc nutritional; endocrine; and metabolic disorders (9 sources)Obesity; Translations: [Obesity, unspecified]Onset: 07-24-2023 13-05-2917UcguszdRehtf nutritional; endocrine; and metabolic disorders (10 sources)Abnormal weight gain; Translations: [Abnormal weight gain]07-24-2023 EpisodicOther nutritional; endocrine; and metabolic disorders (11 sources)Abnormal weight gain; Translations: [Abnormal weight gain]07-24-2023 EpisodicOther screening for suspected conditions (not mental disorders or infectious disease) (5 sources)Abnormal coagulation profile; Translations: [Patient encounter status]Onset: 530464-92-5726MdjdlofzDukdw skin disorders (2 sources)Hypertrophic condition of skin; Translations: [Other hypertrophic disorders of the skin]EpisodicOther skin disorders (2 sources)Folliculitis; Translations: [Follicular disorder, unspecified] EpisodicOther upper respiratory infections (7 sources)Acute maxillary sinusitis, unspecified; Translations: [Acute pharyngitis]Onset: 68-98-2726GnljcauzWhvojj media and related conditions (10 sources)Otitis media; Translations: [Acute secretory otitis media]Onset: 743074-37-2785McjjgicmKqkfpwlf codes; unclassified (20 sources)Obstructive sleep apnea syndrome; Translations: [Obstructive sleep apnea (adult) (pediatric)]Onset: 896481-77-4877RsfvztuOdfgucur codes; unclassified (7 sources)Obstructive sleep apnea (adult) (pediatric); Translations: [Obstructive sleep apnea (adult)(pediatric)]39-37-5506EdzycwsKzmjspzi codes; unclassified (11 sources)Hypersomnia; Translations: [Hypersomnia, unspecified]Onset: 510761-04-8098JqietauOobmozdm codes; unclassified (6 sources)Periodic limb movement disorder; Translations: [Periodic limb movement disorder]Onset: 499616-48-7520CtzasmmVogcjlnf codes; unclassified (3 sources)Periodic leg movements of sleep ; Translations: [Periodic limb movement disorder]Onset: 740927-12-1867YadfnlbUhjjqvqp codes; unclassified (7 sources)Edema of lower extremity; Translations: [Localized edema]09-29-2023 EpisodicResidual codes; unclassified (3 sources)Localized edema; Translations: [Edema]12-54-9914IvunpumpPuywbzsw codes; unclassified (1 source)Family history of kidney disease; Translations: [Family history of disorders of kidney and ureter]Onset: 97-72-8647EhlgcayxClnwrgfe codes; unclassified (2 sources)Family history of renal irjnp15-68-2558SqnwfqphWtnc and subcutaneous tissue infections (12 sources)Cellulitis caused by Staphylococcus aureus; Translations: [Abscess of right lower limb]11-85-0905EzcgnufgSkwiehhprys; intervertebral disc disorders; other back problems (20 sources)Backache; Translations: [Dorsalgia, unspecified]Onset: 09-07-2013 46-25-5700GxasumeyWvwmoet and strains (6 sources)Sprain of right ankle; Translations: [Sprain of unspecified ligament of right ankle, initial encounter]59-62-4855DguyutfqAocllzl (11 sources)Syncope; Translations: [Syncope and collapse]Onset: 09-22-2013 16-41-3598BlungtcmVjevqhtk lupus erythematosus and connective tissue disorders (11 sources)Sjogren's syndrome; Translations: [Sicca syndrome, unspecified] Onset: 850373-57-9115DyknzmgHqkwmgj disorders (14 sources)Goiter; Translations: [Nontoxic goiter, unspecified]Onset: 80-70-0518KagpdzqQzlxqwb disorders (1 source)Disorder of thyroid, unspecifiedEpisodicUnclassified (1 source)PERSONAL HISTORY OF COVID-19; Translations: [PERSONAL HISTORY OF COVID-19]Onset: 13-12-7677Vmshekq tract infections (18 sources)Urinary tract infectious disease; Translations: [Urinary tract infection, site not specified]Onset: 36-59-1161RtnazcjbUebys infection (12 sources)Verruca vulgaris; Translations: [Viral wart, unspecified]Onset: 064582-97-7929WnwcmmszGhnud infection (2 sources)Disease caused by 2019-nCoV; Translations: [COVID-19] Past or Other Problems Problem ClassificationProblemDateDocumented DateEpisodic/ChronicCardiac dysrhythmias (20 sources)Tachycardia, unspecified; Translations: [Palpitations]Onset: 06-93-6025QrcbjyokOzkxryyoxtwbz and screening for infectious disease (4 sources)Raised antibody titer; Translations: [RAISED ANTIBODY TITER]Onset: 69-11-1620CauwugmdNcricro (2 sources)Mycosis; Translations: [Candidiasis, unspecified]16-60-7547Zzzggvnk Other connective tissue disease (2 sources)Prepatellar bursitis; Translations: [Prepatellar bursitis, right knee]Onset: 84-48-1791KzitpdoeOgweo connective tissue disease (1 source)Myalgia/myositis - multiple; Translations: [Unspecified myalgia and myositis]Onset: 56-66-3164HrgwethrKpxtx connective tissue disease (1 source)Muscle pain; Translations: [Unspecified myalgia and myositis]Onset: 63-12-7661JihzaizaBnkbx lower respiratory disease (11 sources)Hypoxia; Translations: [Hypoxemia]Onset: 91-31-496794804478-14-9282 EpisodicOther non-traumatic joint disorders (1 source)Pain in right ankle and joints of right foot; Translations: [Pain in right ankle and joints of right foot]Onset: 41-49-7626SeqkyrkhPdmiayourefz (1 source)Paroxysmal SVT (supraventricular tachycardia) I47.10 Results Test NameValueInterpretationReference RangeFacilityOrders Onlyon 12-25-2024 Orders [id number] Morgan Kirkland 1990 F Date Provider Department Center 12/25/2024 [facility] Family History Problem Relation Age of Onset Heart attack Father 44 Coronary artery disease Father Clotting disorder Father Family Status - Relation Status Age at Mother Alive Father AliveNormalUniSelect Medical TriHealth Rehabilitation HospitalOrders Onlyon 12-01-2024 Orders [id number] Morgan Kirkland 1990 F Date Provider Department Center 12/01/2024 [facility] Family History Problem Relation Age of Onset Heart attack Father 44 Coronary artery disease Father Clotting disorder Father Family Status - Relation Status Age at Mother Alive Father AliveNormalUWexner Medical CenterUrine Cultureon 11-18-2024 Bacteria identified Cx Nom (U)15,000 colonies/ml mixed bacterial skin contaminants 2 Days PERFORMED BY: [address] [address] PATHOLOGIST VIDEO CONTROL ENGINEER VIJAY PERLA M.D.NormalHca Florida Poinc[facility] Hospital Physician GroupComment on above: Performed By: #### [facility] #### [address] [place] [address] USAOrders Onlyon 49-23-1589Wfwvuz [id number] Morgan Kirkland 1990 F Date Provider Department Center 10/24/2024 [facility] [place] [facility] Family History Problem Relation Age of Onset Heart attack Father 44 Coronary artery disease Father Clotting disorder Father Family Status - Relation Status Age at Mother Alive Father AliveNormalUniversity W[facility]UM[facility] HospitalX-ray reportOrdered By: Marlon Christopher on 45-36-7259Hmalv reportFIRMETROHEALTH MAIN CAMPUS [facility]ENTER Main [address] [address] XRay Report Signed Patient: Morgan Kirkland MR#: [id number] : 1990 Acct:[id number] Age/Sex: 33 / F ADM Date: 5 Loc: XDUC Room: Type: [facility] Attending Dr: Alice Olivas APRN Copies to: Alice Olivas APRN~ Ordering Provider: Alice Olivas APRN Date of Service: 08/08/24 XR/XR ankle RT min 3V*: RIGHT ANKLE PAIN XR ankle RT min 3V* 08/08/2024 11:29 AM SIGNS AND SYMPTOMS: Severe pain posterior aspect of the ankle PROTOCOL: Frontal, lateral, and oblique radiographs of the right ankle COMPARISON: None FINDINGS: The ankle mortise is preserved. There is no evidence of fracture or dislocation. Nonspecific diffuse soft tissue swelling is noted XR/XR ankle RT min 3V* IMPRESSION: No acute bony injury. Nonspecific diffuse soft tissue swelling. Impression dictated by: Marlon Christopher M.D. 08/08/2024 11:48 AM Dictation Location: [facility]--17 Transcribed By: JAMAR 08/08/24 1148 Dictated By: Marlon Christopher II, MD 08/08/24 1147 Signed By: 08/08/24 1148 [facility] Work Phone: xr ankle RT min 3V*on 26-96-5646DB ankle RT min 3V* [facility] [place] [address] XRay Report Signed Patient: Morgan Kirkland MR#: [id number] : 1990 Acct:[id number] Age/Sex: 33 / F ADM Date: 08/08/24 [facility] Type[facility] Attending Dr: Alice Olivas [employer] ARCHITECT SPECIALIST Copies to: Alice Olivas APRN Ordering Provider: Alice Olivas APRN Date of Service: 08/08/24 XR/XR ankle RT min 3V*: RIGHT ANKLE PAIN XR ankle RT min 3V* 08/08/2024 11:29 AM SIGNS AND SYMPTOMS: Severe pain posterior aspect of the ankle PROTOCOL: Frontal, lateral, and oblique radiographs of the right ankle COMPARISON: None FINDINGS: The ankle mortise is preserved. There is no evidence of fracture or dislocation. Nonspecific diffuse soft tissue swelling is noted XR/XR ankle RT min 3V* IMPRESSION: No acute bony injury. Nonspecific diffuse soft tissue swelling. Impression dictated by: Marlon Christopher M.D. 08/08/2024 11:48 AM Dictation Location: [place] [address] Transcribed By: [facility] 08/08/24 1148 Dictated By: Marlon Christopher II, MD 08/08/24 1147 Signed By: 08/08/24 1148[facility] Physician GroupOrders Onlyon [id number] [id number] Morgan Kirkland 1990 F Date Provider Department Center 07/23/2024 325-[place] RODRIGUEZ [facility] CARD [facility] Family History Problem Relation Age of Onset Heart attack Father 44 Coronary artery disease Father Clotting disorder Father Family Status - Relation Status Age at Mother Alive Father AliveNormalUniSelect Medical TriHealth Rehabilitation HospitalOffice Visiton 07-20-2024 Follow-up [id number] Morgan Kirkland 1990 F Date Provider Department Center 07/20/2024 166-[facility] S[facility] CARD [facility] Family History Problem Relation Age of Onset Heart attack Father 44 Coronary artery disease Father Clotting disorder Father Family Status - Relation Status Age at Mother Alive Father Alive Level of Service:46787 [place] OFFICE/OUTPATIENT ESTABLISHED LOW MDM 20 MIN Reason for Visit and Comments: Palpitations [[id number]][facility] HealthAmbulatory Visit Summaryon 29-48-9060Zzlofjyvys Visit SummaryAmbulatory Visit Summary MORGAN KIRKLAND :1990 Visit Date:06/03/2024 Ambulatory Visit Instructions Your Care Team Attending Physician - MIKY SAMPSON, Clark Roldan Primary Care Physician - DAVID NEWBERRY MD This Is Your Medications List hydrochlorothiazide (hydrochlorothiazide 12.5 mg Cap) metoprolol (Metoprolol Tartrate 75 mg oral tablet) Procedures Performed Cystoscopy (07/17/2022), Tonsillectomy and adenoidectomy (2012), Laparoscopic- assisted vaginal hysterectomy, Sleep apnea. What to do next Scheduled Follow-Up Appointments Thursday2025 8:30 AM EST With: MIKY SAMPSON, Clark Roldan Where: [facility] [address] Medications What How Much When Instructions Unchanged hydrochlorothiazide (hydrochlorothiazide 12.5 mg Cap) 1 Capsules By Mouth Every day Unchanged metoprolol (Metoprolol Tartrate 75 mg oral tablet) Allergies Betadine (Rash) iodine (Unknown) penicillin (Hives) Problems Ongoing - Any problem that you are currently receiving treatment for. Acute bronchitis Acute right flank pain Anxiety Back pain BMI 36.0-36.9,adult Bursitis Chronic GERD Contact dermatitis Eczema Epigastric pain Family history of kidney stones Fibromyalgia Gross hematuria History of kidney stones Hypercalciuria Hypertension Infection of skin due to methicillin [...] you for choosing us for your care. [facility] Children's HospitalLyteson 70-51-9131Hgfgg gap [Moles/Vol]11 mmol/LNormal6-16Fisher Sathya Medical CenterComment on above: Performed By: #### [id number] #### [facility] [address] [place], [place] [address]Iuxdkfwe [Moles/Vol]104 mmol/BWzsrqz922-382XxqzagCommunity Regional Medical CenterComment on above:Performed By: #### [id number] #### [facility] [address] [place], [place] [address]PH4 [Moles/Vol]26 mmol/TVhjtqr49-53QvektoCommunity Regional Medical Center Comment on above:Performed By: #### [id number] #### [facility] [address] [place], [place] [address]Gesnkocmm [Moles/Vol]4.2 mmol/LNormal3.5-5.3FSelect Medical Cleveland Clinic Rehabilitation Hospital, BeachwoodComment on above:Performed By: #### [id number] #### [facility] [address] [place], [place] [address]Irlgfh [Moles/Vol]137 mmol/EVbukzc762-471ZbgnhlCommunity Regional Medical CenterComment on above:Performed By: #### [id number] #### [facility] [address] [place], [place] [address]Cbxxtclhbk Visit Summaryon 32-74-5419Ycptxdooyx Visit Summary Ambulatory Visit Summary MORGAN KIRKLAND :1990 Visit Date:05/06/2024 Ambulatory Visit Instructions Your Diagnosis Kidney stone Hypercalciuria Recurrent UTI Tests Performed XR Abdomen 1 View -- Results Pending [...] Performed Cystoscopy (07/17/2022), Tonsillectomy and adenoidectomy (2012), Laparoscopic- assisted vaginal hysterectomy, Sleep apnea. Discharge Vitals Temperature (Temporal Artery) 37 ???C Heart Rate (Peripheral) 58 Respiratory Rate 16 Blood Pressure 124/73 Height 172 cm Height 68 in Weight 131.4 kg Weight 289.687 lb BMI 44.42 What to do next You Need to Schedule the Following Appointments Follow Up with MIKY SAMPSON, ISMAEL Leiva When: Where: [facility] [place] [address]- Medications What When Instructions Unchanged metoprolol (Metoprolol [...] Fibromyalgia Gross hematuria History of kidney stones Hypercalciuria Hypertension Infection of skin due to methicillin [...] you for choosing us for your care. Education Materials Dietary Guidelines to Help Prevent Kidney Stones Kidney stones are deposits of minerals and salts that form inside your kidneys. Your risk of developing kidney stones may be greater depending on your diet, your lifestyle, the medicines you take, and whether you have certain medical conditions. Most people can lower their risks of developing kidney stones by following these dietary guidelines. Your dietitian may give you more specific instructions depending on your overall health and the type of kidney stones you tend to develop. What are tips for following this plan? Reading food labels ??? Choose foods with no salt added or low-salt labels. Limit your salt (sodium) intake to less than 1,500 mg a day. ??? Choose foods with calcium for each meal and snack. Try to eat about 300 mg of calcium at each meal.Foods that contain 200???500 mg of calcium a serving include: ? 8 oz (237 mL) of milk, tnktbba-yteyqmmeqrre-dzdde milk, and calcium- fortifiedfruit juice. Calcium-fortified means that calcium has been added to these drinks. ? 8 oz (237 mL) of kefir, yogurt, and soy yogurt. ? 4 oz (114 g) of tofu. ? 1 oz (28 g) of cheese. ? 1 cup (150 g) of dried figs. ? 1 cup (91 g) of cooked broccoli. ? One 3 oz (85 g) can of sardines or mackerel. Most people need 1,000???1,500 mg of calcium a day. Talk to your dietitian about how much calcium is recommended for you. Shopping ??? Buy plenty of fresh fruits and vegetables. Most people do not need to avoid fruits and vegetables, even if these foods contain nutrients that may contribute to kidney stones. ??? When shopping for convenience foods, choose: ? Whole pieces of fruit. ? Pre-made salads with dressing on the side. ? Low-fat fruit and yogurt smoothies. ??? Avoid buying frozen meals or prepared deli foods. These can be high in sodium. ??? Look for foods with live cultures, such as yogurt and kefir. ??? Choose high-fiber grains, such as whole-wheat breads, oat bran, and wheat cereals. Cooking ??? Do not add salt to food when cooking. Place a salt shaker on the table and allow each person to addtheir own salt to taste. ??? Use vegetable protein, such as beans, textured vegetable protein (TVP), or tofu, instead of meat inpasta, casseroles, and soups. Meal planning ??? Eat less salt, if told by your dietitian. To do this: ? Avoid eating processed or pre-made food. ? Avoid eating fast food. ??? Eat less animal protein, including cheese, meat, poultry, or fish, if told by your dietitian. To dothis: ? Limit the number of times you hav (more content not included)...NormalFisher Sinai Hospital Of BaltimoreUrology Office/Clinic Noteon [id number] Office/Clinic NoteUrology Office/Clinic Note Chief Complaint f/u with metabolic work up HPI Staff 33yr old female pt here for f/u with metabolic workup. s/p cysto/r ureteral dilation/r URS/basket extraction 07/17/22 Previous Dx: history of kidney stones, recurrent uti, family history of kidney stones Dysuria: denies Incomplete bladder emptying: denies Hematuria: denies Frequency: denies Urgency: denies Nocturia: denies Stream: denies straining or intermittency Leaking: denies Post void dripping: denies Wearing pads/ Depends: denies Urge incontinence: denies Stress incontinence: denies Incontinence without Sensory Awareness: denies Abdominal pain: denies Flank pain: denies Sexual complaints: denies History of Present Illness Tests reviewed: reviewed UA and met w/up. I have reviewed the previous health record information and history for this patient from Dr. Bolaños I have reviewed and verified the staff HPI to be accurate for this encounter. There have been no associated fever, chills, flank pain, or blood in the urine. Denies any urinary infections since last encounter. Review of Systems PHQ Score Initial Depression Screen Score: 3 SCORE ROS - Provider Constitutional: denies weight loss, [...] Physical Exam Vitals & Measurements T: 37 ???C(Temporal Artery) HR: 58(Peripheral) RR: 16 BP: 124/73 HT: 68 in HT: 172 cm WT: 131.4 kg WT: 289.687 lb BMI: 44.42 General Appearance: alert , no acute distress, well nourished, well developed female. Assessment/Plan 1. Kidney stone (N20.0: Calculus of kidney) Had a stone in 2019, heard it hit the toilet. S/p Cysto/R ureteral dilation/R URS/basket extraction 07/17/22. KUB 01/17/23 [facility] - no stones noted KUB 01/22/24 [facility] - no stones noted JANIS 01/22/24 [facility] - no stones noted Mother has stones frequently. Reports she recently went septic due to stone. Serum labs 02/29/24 - wnl 24hr urine 02/29/24 - total volume 2100, high urine sodium 175, high urine calcium 21.1 (5.1-21) Discussed metabolic w/up results with pt. Encouraged pt to add 2 more bottles of water daily. Decrease added salt in diet. Given high urine calcium, recommended starting HCTZ. Pt agrees with plan. Will check lytes in 4 wks. -Start HCTZ 12.5mg qd -Check lytes in 4 weeks, pt to be called with results -Add 2 more bottles of water, decrease added salt in diet Follow up in 1 year with KUB and repeat met w/up. 2. Hypercalciuria (R82.994: Hypercalciuria) See #1. 3. Recurrent UTI (N39.0: Urinary tract infection, site not specified) UCx 01/20/23 - neg 08/07/23 - E.Coli, tx'd w/Bactrim DS 800mg-160mg BID x 5 days PVR 01/29/24 - 74 mL UA today negative for blood and infection. Denies burning with urination or gross hematuria w/o other UTI sxs. 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 Pt states that she drinks 0.5-1 gal of water a day, feels empty when she voids. Advised pt that she needs to ensure she is emptying. -Continue with behavioral changes Follow-up With When Contact Information MIKY SAMPSON, Clark Roldan, [place] [id number]- Additional Instructions: 1 year w/ KUB and repeat met w/up Patient Education Dietary Guidelines to Help Prevent Kidney Stones ISue, personally scribed for Dr. Bolaños on 05/06/2024 09:31:10. . Documentation recorded by the scribeSue, accurately reflects the services(s) I performed and decisions made by me. Authenticated by Dr. Bolaños on 05/06/2024 09:33:34. Problem List/Past Medical History Ongoing Acute bronchitis Acute right flank pain Anxiety Back pain BMI 36.0-36.9,adult Bursitis Chronic GERD Contact dermatitis Eczema Epigastric pain Family history of kidney stones Fibromyalgia Gross hematuria History of kidney stones Hypercalciuria Hypertension Infection of skin due to methicillin resistant Staphylococcus aureus (MRSA) Kidney stone Left sided abdominal pain MRSA cellulitis Otitis media Palpitations Recurrent UTI Sjogren's syndrome Spontaneous ecchymoses Syncope Tachycardia Urinary frequency Urinary urgency UTI symptoms Verruca vulgaris Historical No qualifying data Procedure/Surgical History Cystoscopy (07/17/2022), Tonsillectomy and adenoidectomy (2012), Laparoscopic- assisted (more content not included)...[facility]'s HospitalComment on above:Result Comment: Electronically Signed By: Clark BOLAÑOS MD\.br\Date and Time Signed: 05/06/24 09:33 EST\.br\Electronically Co-Signed By: Sue Luke\.br\Date and Time Co-Signed: 05/06/2508:31 ESTOffice Visiton [id number]-up [id number] Morgan Kirkland 1990 F Date Provider Department Center 02/16/2024 3848-[facility] Family History Problem Relation Age of Onset Heart attack Father 44 Coronary artery disease Father Clotting disorder Father Family Status - Relation Status Age at Father Alive Level of Service:31561 [place] OFFICE/OUTPATIENT ESTABLISHED LOW MDM 20 [facility] HospitalAmbulatory Visit Summaryon 01-29-2024 Ambulatory Visit SummaryAmbulatory Visit Summary MORGAN KIRKLAND :1990 Visit Date:01/29/2024 Ambulatory Visit Instructions Your Diagnosis History of kidney stones Recurrent UTI Family history of kidney stones Your Care Team Attending Physician - Clark BOLAÑOS MD Primary Care Physician - DAVID NEWBERRY MD This Is Your Medications List Contact prescribing physician if questions or concerns metoprolol (Metoprolol Tartrate 75 mg oral tablet) Procedures Performed Cystoscopy (07/17/2022), Tonsillectomy and adenoidectomy (2012), Laparoscopic- assisted vaginal hysterectomy, Sleep apnea. Discharge Vitals Temperature [...] w/Met W/up Where: [facility] [address], [place] [address]- Medications What When Instructions Unchanged metoprolol (Metoprolol [...] you for choosing us for your care. [facility] HospitalUrology Office/Clinic Noteon [id number] Office/Clinic NoteUrology Office/Clinic Note Chief Complaint 1yr f/u KUB [...] the past she has had UTI where theUA was negative and culture was positive. UA [...] questions/concerns were discussed. Pt to call the officeif she encounters any issues prior. Pt acknowledges understanding. Portions of this record may havebeen created with voice recognition artificial intelligence software, specifically Donews, CityFibre and or Dragon Ambient Experience. 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 Pt states that she drinks 0.5-1 gal of water a day, feels empty when she voids. Advised pt that she needs to ensure she is emptying. -Continue with behavioral changes. 3. Family history of kidney stones (Z84.1: Family history of disorders of kidney and ureter) Mother has them frequently. -See #1 Follow-up With When Contact Information Clark BOLAÑOS MD, URL In 3 months [facility] [address], [place] [address]- Additional Instructions: w/Met W/up Patient Education I, Chinyere Curiel , personally scribed for Dr. Bolaños on 01/29/2024 09:17:56. . Documentation recorded by the scribe, Chinyere Curiel, accurately reflects the services(s) I performed and decisions made by me. Problem List/Past Medical History Ongoing Acute bronchitis Acute right flank pain Anxiety Back pain BMI 36.0-36.9,adult Bursitis Chronic GERD Contact dermatitis Eczema Epigastric pain Family history of kidney stones Fibromyalgia Gross hematuri (more content not included)...[facility] Comment on above:Result Comment: Electronically Signed By: Clark BOLAÑOS MD\.br\Date and Time Signed: 01/29/24 09:19 EST\.br\Electronically Co-Signed By: Chinyere Curiel.br\Date and Time Co-Signed: 01/29/24 09:18 IXBFgP4j HPLC (Bld) [Mass fraction]on 87-61-3678MoC8s (Bld) [Mass fraction]5.0 %[facility]an Private HospitalRAD - Ultrasound Reporton 40-12-3887CMA - Ultrasound [id number]#1.00TIFUniversity Hospitals TriPoint Medical CenterRAD - MISCon 62-90-1687BOQ - MISC [id number]#1.00TIFFDayton Children's HospitalRAD - [id number]#1.00[facility] Urineon 88-00-4073Ujyyyqgr identified Cx Nom (U) Microbiology PROCEDURE: Urine Culture [R1] SOURCE: U CleanCatch BODY SITE: COLLECTED DATE/TIME: 08/07/2023 14:07 EDT RECEIVED DATE/TIME: 08/07/2023 17:42 EDT START DATE/TIME: 08/07/2023 17:42 EDT FREE TEXT SOURCE: MIKY SAMPSON, Clark BOLAÑOS MD, Clark Roldan FINAL REPORTS Final Report [] Verified Date/Time: 08/09/2023 09:51 EDT >100,000 cfu/ml Escherichia coli SUSCEPTIBILITY RESULTS LEGEND: S=Susceptible, N/R=Not Reported, Blank=Data not available, [...] Locations R1: This test was performed at: [facility], [address] [place] [address], [facility] , , HciyupHtxysoDayton Children's HospitalComment on above:Performed By: #### [id number] #### [facility] [address] [place], [place] [address]Bacteria identified Cx Nom (U)Microbiology PROCEDURE: Urine Culture [R1] SOURCE: U CleanCatch BODY SITE: COLLECTED DATE/TIME: 08/07/2023 14:07 EDT RECEIVED DATE/TIME: 08/07/2023 17:42 EDT START DATE/TIME: 08/07/2023 17:42 EDT FREE TEXT SOURCE: MIKY SAMPSON, Clark BOLAÑOS MD, Clark Roldan FINAL REPORTS Final Report [] Verified Date/Time: 08/09/2023 09:51 EDT >100,000 cfu/ml Escherichia coli SUSCEPTIBILITY RESULTS LEGEND: S=Susceptible, N/R=Not Reported, Blank=Data not available, [...] Locations R1: This test was performed at: [facility], [address] [place] [address], [address]- , , DkxmjsEypiwnThe MetroHealth SystemComment on above:Performed By: #### [id number] #### [facility] [address] [place], [place] [address]Neyrrlzdq Auto (Bld) [#/Vol]on 60-34-0073Cmsauaihz (Bld) [#/Vol]0.0 10 3/uL0.0-0.1FSelect Medical Specialty Hospital - Southeast OhioBasophils/100 WBC Auto (Bld)on 94-27-6974Qwcktqofq/100 WBC (Bld)0.6 %0.2-2.0[facility] HospitalEosinophils/100 WBC Auto (Bld)on 89-71-9040Faxeftrfsit/100 WBC (Bld)1.6 % 0.9-7.0[facility] Private HospitalErythrocyte distribution width Auto (RBC) [Ratio]on 86-84-6256Wyhoounoumc distribution width (RBC) [Ratio]12.1 % 11.0-15.0[facility] Private HospitalEstimated glomerular filtration rate (GFR) non- Americanon 00-75-2715MBV/1.73 sq M.predicted among non-blacks MDRD (S/P/Bld) [Vol rate/Area]mL/min/{1.73_m2}>=60[facility] Private HospitalHematocrit Auto (Bld) [Volume fraction]on 15-84-3380Xzvtwkqxdh (Bld) [Volume fraction]38.8 %36.0-48.0[facility] Private HospitalHemoglobin [Mass/volume] in Bloodon 58-66-7527Ujktepimnt (Bld) [Mass/Vol]13.1 g/dL12.0-16.0 [facility] HospitalLaboratory - Chemistry and Chemistry - challengeon 16-43-8394Tcxakcm [Mass/Vol]9.2 mg/dL8.5-10.1FSelect Medical Specialty Hospital - Southeast OhioChloride [Moles/Vol]103 mmol/U84-613PdksaqobbKeenan Private HospitalCO2 [Moles/Vol]25.5 mmol/L21.0-32.0[facility] Creatinine [Mass/Vol]0.78 mg/dL0.55-1.02[facility] Private HospitalFree T4 [Mass/Vol]0.95 ng/dL0.76-1.46[facility] Private HospitalGFR/1.73 sq M.predicted MDRD (S/P/Bld) [Vol rate/Area]mL/min/{1.73_m2}>=60[facility] HospitalGlucose [Mass/Vol]100 mg/cY77-064NxmyxgsjtKeenan Private Hospital Potassium [Moles/Vol]3.9 mmol/L3.5-5.1FSelect Medical Specialty Hospital - Columbusodium [Moles/Vol]137 mmol/X523-743AtjtacckgKeenan Private HospitalTSH Qn1.067 m[IU]/L 0.358-3.740[facility] HospitalUrea nitrogen [Mass/Vol]12.0 mg/dL 7.0-18.0[facility] Private HospitalUrea nitrogen/Creatinine [Mass ratio] 15.4 mg/mgKeenan Private HospitalLaboratory - Hematology and Cell countson 99-45-7770Vuyxblun granulocytes/100 WBC (Bld)0.3 %0.0-0.5FSelect Medical Specialty Hospital - Southeast OhioLeukocytes [#/volume] corrected for nucleated erythrocytes in Blood by Automated counon 94-56-0415GBM corrected for nucl RBC Auto (Bld) [#/Vol]7.0 10 3/uL4.0-11.0[facility] Lymphocytes Auto (Bld) [#/Vol]on 77-32-3697Cmcoiafzjjn (Bld) [#/Vol]2.4 10 3/uL 1.2-3.8[facility] HospitalLymphocytes/100 WBC Auto (Bld)on 66-63-0457Pjfsyshrwbh/100 WBC (Bld)34.4 %20.5-60.0[facility] Private HospitalMCH Auto (RBC) [Entitic mass]on 11-05-4474RYT (RBC) [Entitic mass]29.6 pg 26.7-34.0[facility] Private HospitalMCHC Auto (RBC) [Mass/Vol]on 64-00-5493PRLX (RBC) [Mass/Vol]33.8 g/dL29.9-35.2FSelect Medical Specialty Hospital - Southeast OhioMCV Auto (RBC) [Entitic vol]on 60-74-3830RVD (RBC) [Entitic vol]87.8 fL 81.0-99.0[facility] Private HospitalMonocytes Auto (Bld) [#/Vol]on 06-24-1764Devoatlml (Bld) [#/Vol]0.5 10 3/uL0.3-0.8[facility] HospitalMonocytes/100 WBC Auto (Bld)on 30-06-1960Ulhnfovkm/100 WBC (Bld)7.4 % 1.7-12.0[facility] Private HospitalNeutrophils Auto (Bld) [#/Vol]on 99-11-7818Tmatbzkoetl (Bld) [#/Vol]3.9 10 3/uL1.4-6.5FSelect Medical Specialty Hospital - Southeast OhioNeutrophils/100 WBC Auto (Bld)on 39-91-9468Ouzlsbzksut/100 WBC (Bld)55.7 % 43.0-75.0[facility] Private HospitalNo Panel Informationon 08-01-2023 Eosinophils # (Auto)0.1 10 3/uL0.0-0.7FSelect Medical Specialty Hospital - Southeast OhioImmature Granulocyte # (Auto)0.02 10 3/uL0.00-0.03[facility] Platelet mean volume Auto (Bld) [Entitic vol]on 61-47-7993Irgcarkl mean volume (Bld) [Entitic vol]9.7 fL9.5-13.5FSelect Medical Specialty Hospital - Southeast OhioPlatelets Auto (Bld) [#/Vol]on 13-14-9904Bgeurlksv (Bld) [#/Vol]231 10 3/uX998-292XtentbeaqKeenan Private HospitalRBC Auto (Bld) [#/Vol]on 09-32-4220RFF (Bld) [#/Vol]4.42 10 6/uL4.20-5.40Select Medical [facility] Rehabilitation Hospital, Beachwooderum or plasma anion gap determinationon 92-05-6433Kmchc gap [Moles/Vol]12.4 mmol/LFSelect Medical Specialty Hospital - Southeast OhioTilt tableOrdered By: Nadiya Helms on 92-11-9509PZ (Initial Tilt) 125/97mmHgBON SECCapigami Work Phone: BP (Max BP)139/92mmHgBON SECCapigami Work Phone: BP (Max Heart Rate)83/41mmHgBON SECCapigami Work Phone: BP (Min BP)83/41mmHgBON SECCapigami Work Phone: BP (Min Heart Rate)111/82mmHgBON SECCapigami Work Phone: BP (Supine)131/52bpmBON SECCapigami Work Phone: Heart rate72 /minbpmBON SECCapigami Work Phone: Heart vemy575 /minbpmBON SECCapigami Work Phone: Minutes (Max BP)22BON SECCap[employer] Work Phone: Minutes (Max Heart Rate)23BON SECCapigami Work Phone: Minutes (Min BP)23BON SECCityFibre Phone: Minutes (Min Heart Rate)6BON SECCityFibre Phone: Rhythm (Initial Tilt)SRBON [employer] Phone: Rhythm (Max BP)STBON SECCityFibre Phone: Rhythm (Max Heart Rate)STBON SECCapigami Work Phone: Rhythm (Min BP)STBON SECCityFib[employer] Phone: Rhythm (Min Heart Rate)SRBON [employer] Phone: Rhythm (Supine)SRBON [employer] Phone: BON [employer] Phone: Tilt tableon 66-13-5253Nnqh Study Conclusions: Study Conclusions: Abnormal head upright tilt study. [...] minute of the study for a maximum of30 minutes. During the initial 20 minutes of [...] 139/92 mmHg to a low of 83/41 mmH g, while their heart rate ranged from a [...] with their primary care physician and/ or sea kayaking guide as previously scheduled.[facility] CV CPACSRadiology Study observation (narrative)BON VidderPLAINS [facility] Travel Appeal [facility] BLANCHARD VALLEY HOSPITALVital signs Ordered By: Nadiya Helms on 12-84-2149Rleeq rate78 /minbpmBON [facility] [employer] Work Phone: Heart zqhy774 /minbpmBON [facility]ED[facility] [employer] Work Phone: Automated erythrocytes count in urine sediment (number/area)Ordered By: Enrique Lucas on 55-88-7982UNT Auto (Urine sed) [#/Area]10-19 [HPF]0-4FSelect Medical Specialty Hospital - Southeast OhioAutomated leukocytes count in urine sediment (number/area)Ordered By: Enrique Lucas on 80-22-7373BRX Auto (Urine sed) [#/Area]5-9 [HPF]0-4FSelect Medical Specialty Hospital - Southeast OhioBasophils Auto (Bld) [#/Vol]Ordered By: Enrique Lucas on 81-60-6282Bdrqsqoyq (Bld) [#/Vol]0.1 10*3/uL0.0-0.2FSelect Medical Specialty Hospital - Southeast OhioBasophils/100 WBC Auto (Bld)Ordered By: Enrique Lucas on 78-20-4039Gknmjlmls/100 WBC (Bld)0.7 %. [facility] Private HospitalBilirubin Test strip Ql (U)Ordered By: Enrique Lucas on 70-06-4099Ybjklaajz Ql (U)NegativeNegativeKeenan Private HospitalC reactive protein [Mass/volume] in Serum or PlasmaOrdered By: Enrique Lucas on 31-11-5351XKR [Mass/Vol]0.5 mg/dL0.0-0.5FSelect Medical Specialty Hospital - Southeast OhioColor Auto (U)Ordered By: Enrique Lucas on 29-24-8933Onapu (U)Yellow YellowKeenan Private HospitalCreatinine [Mass/volume] in Serum or PlasmaOrdered By: Enrique Lucas on 16-62-8741Rsdwnewdza [Mass/Vol]0.70 mg/dL 0.60-1.20[facility] Private HospitalEosinophils Auto (Bld) [#/Vol]Ordered By: Enrique Lucas on 68-99-7017Fictezncgtn (Bld) [#/Vol]0.2 10*3/uL0.0-0.45 [facility] HospitalEosinophils/100 WBC Auto (Bld)Ordered By: Enrique Lucas on 04-72-4644Hhtcgxdgaas/100 WBC (Bld)3.0 %.[facility] HospitalErythrocyte distribution width Auto (RBC) [Ratio]Ordered By: Enrique Lucas on 78-93-8768Voqeagngtnz distribution width (RBC) [Ratio]13.0 % 11.9-15.3FSelect Medical Specialty Hospital - Southeast OhioErythrocyte sedimentation rate by Photometric methodOrdered By: Enrique Lucas on 16-63-9964BIQ Photometric method (Bld) [Velocity]13 mm/hr0-19[facility] HospitalHematocrit Auto (Bld) [Volume fraction]Ordered By: Enrique Lucas on 64-60-4049Ckumobqcxh (Bld) [Volume fraction]41.5 %34.0-46.4FSelect Medical Specialty Hospital - Southeast OhioHemoglobin [Mass/volume] in BloodOrdered By: Enrique Lucas on 14-46-8338Rvsnpwfeoy (Bld) [Mass/Vol]14.0 g/dL11.8-15.4FSelect Medical Specialty Hospital - Southeast OhioKetones Auto test strip (U) [Mass/Vol]Ordered By: Enrique Lucas on 54-22-1843Uktphbd (U) [Mass/Vol]NegativeNegativeKeenan Private HospitalLaboratory - UrinalysisOrdered By: Enrique Lucas on 33-70-4260Wqbixvj casts LM Ql (Urine sed)None seen [LPF]0-8[facility] HospitalLeukocytes [#/volume] corrected for nucleated erythrocytes in Blood by Automated counOrdered By: Enrique Lucas on 50-12-0571KXY corrected for nucl RBC Auto (Bld) [#/Vol]7.4 10*3/uL3.8-11.6FSelect Medical Specialty Hospital - Southeast OhioLymphocytes Auto (Bld) [#/Vol] Ordered By: Enrique uLcas on 43-61-8621Pbithtbxale (Bld) [#/Vol]2.6 10*3/uL 1.00-4.8[facility] HospitalLymphocytes/100 WBC Auto (Bld)Ordered By: Enrique Lucas on 68-92-6487Zgwudhqvmmh/100 WBC (Bld)35.4 %.[facility] HospitalH Auto (RBC) [Entitic mass]Ordered By: Enrique Lucas on 59-20-2643UOO (RBC) [Entitic mass]30.2 pg24.7-34.3FSelect Medical Specialty Hospital - Southeast OhioMCHC Auto (RBC) [Mass/Vol]Ordered By: Enrique Lucas on 16-60-0656NXPA (RBC) [Mass/Vol]33.7 g/dL32.0-35.0[facility] HospitalMCV Auto (RBC) [Entitic vol]Ordered By: Enrique Lucas on 90-02-1779XYK (RBC) [Entitic vol]89.4 wB65-769FxiflyzorKeenan Private HospitalMonocytes Auto (Bld) [#/Vol] Ordered By: Enrique Lucas on 99-81-1027Pyhvsjmpi (Bld) [#/Vol]0.4 10*3/uL 0.0-0.8[facility] HospitalMonocytes/100 WBC Auto (Bld)Ordered By: Enrique Lucas on 29-02-7652Xngnqmwrz/100 WBC (Bld)5.3 %.[facility] HospitalNeutrophils Auto (Bld) [#/Vol]Ordered By: Enrique Lucas on 39-29-2218Olflxlfwunp (Bld) [#/Vol]4.1 10*3/uL1.8-7.7FSelect Medical Specialty Hospital - Southeast OhioNeutrophils/100 WBC Auto (Bld)Ordered By: Enrique Lucas on 01-20-2023 Neutrophils/100 WBC (Bld)55.6 %.[facility] HospitalNitrite Test strip Ql (U)Ordered By: Enrique Lucas on 74-02-4092Xrouxfh Ql (U)Negative NegativeKeenan Private HospitalNo Panel InformationOrdered By: Enrique Lucas on 50-96-1067Apoxfeglv GFR (CKD-EPI)> 60.0 mL/MinKeenan Private HospitalPharmacy Creatinine Clearance (ChemN/AFSelect Medical Specialty Hospital - Southeast OhioNucleated erythrocytes [Presence] in Blood by Automated countOrdered By: Enrique Lucas on 54-32-0708Pghhxnhfh RBC Auto Ql (Bld)0.1 /100{WBC}0-0.5 [facility] HospitalPlatelet mean volume Auto (Bld) [Entitic vol] Ordered By: Enrique Lucas on 23-72-3318Phawiwty mean volume (Bld) [Entitic vol] 8.5 fL6.3-10.7FSelect Medical Specialty Hospital - Southeast OhioPlatelets Auto (Bld) [#/Vol] Ordered By: Enrique Lucas on 05-54-1253Exknsigtd (Bld) [#/Vol]253 10*3/uL 150-450[facility] HospitalProtein Auto test strip (U) [Mass/Vol] Ordered By: Enrique Lucas on 07-70-3947Tlvwbev (U) [Mass/Vol]NegativeNegative [facility] HospitalRBC Auto (Bld) [#/Vol]Ordered By: Enrique Lucas on 47-98-4233FYO (Bld) [#/Vol]4.65 10*6/uL3.60-5.00[facility] Beachwoodpecific gravity Auto test strip (U) [Rel density]Ordered By: Enrique Lucas on 75-43-8492Pgefatvb gravity (U) [Rel density]1.0161.001-1.030 [facility], Beachwoodquamous epithelial cells detection in urine sediment by light microscopyOrdered By: Enrique Lucas on 79-17-0475Ssldtgxwcw cells.squamous LM Ql (Urine sed)3-4 [HPF]0-2FSelect Medical Specialty Hospital - Southeast [place] Urine bacteria detection by automated methodOrdered By: Enrique Lucas on 78-64-0905Bongkqan Auto Ql (U)1+None SeenKeenan Private HospitalUrine clarity by refractometry automatedOrdered By: Enrique Lucas on 01-20-2023 Clarity Refractometry automated (U)ClearCleFlower Hospital Urine glucose measurement by automated test strip (mass/volume)Ordered By: Enrique Lucas on 29-07-9154Cajxwth Auto test strip (U) [Mass/Vol]Normal mg/dL NormalKeenan Private HospitalUrine hemoglobin detection by automated test stripOrdered By: Enrique Lucas on 54-01-7681Hkgqjekspi Auto test strip Ql (U)TraceNegativeKeenan Private HospitalUrine leukocyte esterase detection by automated test stripOrdered By: Enrique Lucas on 01-20-2023 Leukocyte esterase Auto test strip Ql (U)2+NegativeKeenan Private HospitalUrobilinogen Auto test strip (U) [Mass/Vol]Ordered By: Enrique Lucas on 88-89-8347Xbimaiwecmdz (U) [Mass/Vol]Normal mg/dLNormalKeenan Private HospitalWBC Auto (Bld) [#/Vol]Ordered By: Enrique Lucas on 02-86-3336NDI (Bld) [#/Vol]7.4 10*3/uL3.8-11.6FSelect Medical Specialty Hospital - Southeast OhiopH Auto test strip (U)Ordered By: Enrique Lucas on 50-60-0996uH (U)6.0 [pH]5.0-9.0[facility] HospitalHCG ( test) IA.rapid Ql (U)Ordered By: LITA BLACKMAN on 91-40-1744YGN ( test) Ql (U)NegativeKeenan Private HospitalActivated partial thromboplastin time (aPTT) in platelet poor plasma by coagulation aOrdered By: Dasha Garcia on 96-20-4099qTYE Coag (PPP) [Time]28.2 s25.1-36.5FSelect Medical Specialty Hospital - Southeast OhioComment on above:A hematocrit value greater than 55% may lead to inaccurate results in coagulation testing. Patientshaving hematocrit values >55% require a special collection tube for coagulation studies. Please contact the laboratory at [phone] for redraw instructions.Basophils Auto (Bld) [#/Vol]Ordered By: Dasha Garcia on 45-95-1615Iiqcyhsiq (Bld) [#/Vol]0.0 10*3/uL0.0-0.2FSelect Medical Specialty Hospital - Southeast OhioBasophils/100 WBC Auto (Bld)Ordered By: Dasha Garcia on 12-15-2022 Basophils/100 WBC (Bld)0.6 %.[facility] HospitalCalcium [Mass/volume] in Serum or PlasmaOrdered By: Dasha Garcia on 30-17-5199Dhulscy [Mass/Vol]9.4 mg/dL8.6-10.3FSelect Medical Specialty Hospital - Southeast OhioCarbon dioxide, total [Moles/volume] in Serum or PlasmaOrdered By: Dasha Garcia on 12-15-2022 CO2 [Moles/Vol]28.6 mmol/L21.0-31.0[facility] HospitalChloride [Moles/volume] in Serum or PlasmaOrdered By: Dasha Garcia on 12-15-2022 Chloride [Moles/Vol]105 mmol/F15-496WyjukxrwdKeenan Private HospitalCreatinine [Mass/volume] in Serum or PlasmaOrdered By: Dasha Garcia on 12-15-2022 Creatinine [Mass/Vol]0.86 mg/dL0.60-1.20[facility] Eosinophils Auto (Bld) [#/Vol]Ordered By: Dasha Garcia on 12-15-2022 Eosinophils (Bld) [#/Vol]0.2 10*3/uL0.0-0.45[facility] Eosinophils/100 WBC Auto (Bld)Ordered By: Dasha Garcia on 12-15-2022 Eosinophils/100 WBC (Bld)1.9 %.[facility] HospitalErythrocyte distribution width Auto (RBC) [Ratio]Ordered By: Dasha Garcia on 12-15-2022 Erythrocyte distribution width (RBC) [Ratio]13.0 %11.9-15.3FSelect Medical Specialty Hospital - Southeast OhioGlucose [Mass/volume] in Serum or PlasmaOrdered By: Dasha Garcia on 63-91-5070Xtzhonu [Mass/Vol]90 mg/jL68-770ExhnfjoswKeenan Private HospitalComment on above:ADA recommended reference rangeRandom Glucose Reference Range is dependent on time and content of last meal. Glucose of more than 200 mg/dL in a nonstressed, ambulatory subject supports the diagnosisof Diabetes Mellitus.Hematocrit Auto (Bld) [Volume fraction]Ordered By: Dasha Garcia on 00-43-0327Wrzmgqbwxn (Bld) [Volume fraction]40.0 %34.0-46.4FSelect Medical Specialty Hospital - Southeast OhioHemoglobin [Mass/volume] in BloodOrdered By: Dasha Garcia on 88-84-4683Apbffuqcyo (Bld) [Mass/Vol]13.6 g/dL11.8-15.4FSelect Medical Specialty Hospital - Southeast OhioINR in Platelet poor plasma by Coagulation assayOrdered By: Dasha Garcia on 17-45-1632JPS Coag (PPP) [Relative time]0.9 {INR}[facility] HospitalComment on above:INR Therapeutic Range A) Pre- and Peroperative OAT started two weeks before surgery. NOT HIP SURGERY: 1.5 - 2.5 HIP SURGERY: 2 - 3B) Primary and secondary prevention of venous THROMBOSIS: 2 - 3C) Active venous thrombosis, pulmonary embolismand prevention of recurrent venous thrombosis: 2 - 3D) Prevention of arterial thromboembolismincluding patients with mechanical heart valves: 3 - 4.5Leukocytes [#/volume] corrected for nucleated erythrocytes in Blood by Automated counOrdered By: Dasha Garcia on 47-02-4367WEE corrected for nucl RBC Auto (Bld) [#/Vol]8.1 10*3/uL3.8-11.6 [facility] HospitalLymphocytes Auto (Bld) [#/Vol]Ordered By: Dasha Garcia on 41-33-0403Nselcypufei (Bld) [#/Vol]2.3 10*3/uL1.00-4.8 [facility] HospitalLymphocytes/100 WBC Auto (Bld)Ordered By: Dasha Garcia on 94-35-2216Yvusjfzhlyl/100 WBC (Bld)28.8 %.[facility] Auto (RBC) [Entitic mass]Ordered By: Dasha Garcia on 76-28-2043ENL (RBC) [Entitic mass]30.0 pg24.7-34.3FGrant Hospital Auto (RBC) [Mass/Vol]Ordered By: Dasha Garcai on 70-07-8276HEPE (RBC) [Mass/Vol]34.0 g/dL32.0-35.0[facility] HospitalMCV Auto (RBC) [Entitic vol]Ordered By: Dasha Garcia on 41-01-0918WNH (RBC) [Entitic vol]88.1 xK18-067JjfomblinKeenan Private HospitalMonocytes Auto (Bld) [#/Vol] Ordered By: Dasha Garcia on 78-30-9085Mcvzqncxr (Bld) [#/Vol]0.4 10*3/uL 0.0-0.8[facility] HospitalMonocytes/100 WBC Auto (Bld)Ordered By: Dasha Garcia on 14-12-3600Fiyzfpwpi/100 WBC (Bld)5.1 %.[facility] HospitalNeutrophils Auto (Bld) [#/Vol]Ordered By: Dasha Garcia on 17-08-1696Azckkeokpzt (Bld) [#/Vol]5.2 10*3/uL1.8-7.7FSelect Medical Specialty Hospital - Southeast OhioNeutrophils/100 WBC Auto (Bld)Ordered By: Dasha Garcia on 12-15-2022 Neutrophils/100 WBC (Bld)63.6 %.[facility] HospitalNo Panel InformationOrdered By: Dasha Garcia on 39-99-8813Xprekreab GFR (CKD-EPI)> 60.0 mL/MinKeenan Private HospitalPharmacy Creatinine Clearance (Chem N/AFSelect Medical Specialty Hospital - Southeast OhioNucleated erythrocytes [Presence] in Blood by Automated countOrdered By: Dasha Garcia on 10-63-0058Dxypzcvla RBC Auto Ql (Bld)0.1 /100{WBC}0-0.5FSelect Medical Specialty Hospital - Southeast OhioPlatelet mean volume Auto (Bld) [Entitic vol]Ordered By: Dasha Garcia on 16-29-0309Widfvcgp mean volume (Bld) [Entitic vol]8.2 fL6.3-10.7FSelect Medical Specialty Hospital - Southeast [place] Platelets Auto (Bld) [#/Vol]Ordered By: Dasha Garcia on 28-78-1751Beffiabwq (Bld) [#/Vol]235 10*3/zT403-471KzkyyefwjKeenan Private HospitalPotassium [Moles/volume] in Serum or PlasmaOrdered By: Dasha Garcia on 12-15-2022 Potassium [Moles/Vol]4.1 mmol/L3.5-5.1FSelect Medical Specialty Hospital - [facility] [place] Prothrombin time (PT)Ordered By: Dasha Garcia on 46-85-1647YF Coag (PPP) [Time]11.3 s9.0-12.9[facility] HospitalComment on above:A hematocrit value greater than 55% may lead to inaccurate results in coagulation testing. Patientshaving hematocrit values >55% require a special collection tube for coagulation studies. Please contact the laboratory at [phone] for redraw instructions.RBC Auto (Bld) [#/Vol]Ordered By: Dasha Garcia on 19-14-5441UTV (Bld) [#/Vol]4.53 10*6/uL3.60-5.00[facility], Beachwooderum or plasma anion gap determinationOrdered By: Dasha Garcia on 26-41-5000Sdlmx gap [Moles/Vol]8.5 mmol/L6.0-15.0[facility], Beachwoododium [Moles/volume] in Serum or PlasmaOrdered By: Dasha Garcia on 46-15-5518Qgevjc [Moles/Vol]138 mmol/I206-400OdacjlyvdKeenan Private Hospital Urea nitrogen [Mass/volume] in Serum or PlasmaOrdered By: Dasha Garcia on 02-25-3675Kovk nitrogen [Mass/Vol]9 mg/dL7-25[facility] WBC Auto (Bld) [#/Vol]Ordered By: Dasha Garcia on 92-41-2933UWB (Bld) [#/Vol] 8.1 10*3/uL3.8-11.6FSelect Medical Specialty Hospital - Southeast OhioCALCULI, URINARYon 32,8 DihydroxyadenineLouis Stokes Cleveland VA Medical CenterComment on above: Performed By: #### CALCULI #### [facility] [address] [address] [address] Lela OkeefeAmmonium Acid UrateNKettering Health Miamisburgment on above: Performed By: #### CALCULI #### [facility] [address] [address] [address] Lela Ellisirubin Ql (U)[facility] CenterComformerly [facility] on above: Performed By: #### CALCULI #### [facility] [address] [address] [address] Lela OkeefeCa Oxalate Tpmhgsdbx95 %[facility] on above:Performed By: #### CALCULI #### [facility] [address] [address] [address] Lela OkeefeCaHPO4 (Brushite)[facility] on above: Performed By: #### CALCULI #### [facility] [address] [address] [address] Lela Gutierrezium BilirubinateNOhioHealth Grant Medical Center on above: Performed By: #### CALCULI #### [facility] [address] [address] [address] Lela Gutierrezium CarbonateOhio State Harding Hospital on above: Performed By: #### CALCULI #### [facility] [address] [address] [address] Lela Gutierrezium Oxalate Zlqiynofrie15 %[facility] on above:Performed By: #### CALCULI #### [facility] [address] [address] [address] Lela Gutierrezium PalmitateNoCorey Hospital on above: Performed By: #### CALCULI #### [facility] [address] [address] [address] Lela Gutierrezium PhosphateNoCorey Hospital on above: Performed By: #### CALCULI #### [facility] [address] [address] [address] Lela Gutierrezium StearateNOhioHealth Grant Medical Center on above: Performed By: #### CALCULI #### [facility] [address] [address] [address] Lela Christina ApatiteOhio State Harding Hospital on above: Performed By: #### CALCULI #### [facility] [address] [place] [address] Dr. Lela OkeefeCellular MaterialOhio State Harding Hospital on above: Performed By: #### CALCULI #### [facility] [address] [place] [address] Dr. Lela OkeefeCholesterolOhio State Harding Hospital on above:Performed By: #### CALCULI #### [facility] [address] [place] [address] Dr. Lela Cabrera ()[facility] on above:Performed By: #### CALCULI #### [facility] [address] [place] [address] Dr. Lela RojasLake Regional Health SystemjasmineOhio State Harding Hospital on above:Result Comment: Calcium phosphate (hydroxyl form) includes hydroxyapatite, amorphous calcium phosphate, and whitlockite. Hydroxyapatite is the most common of the calcium phosphate salts found in human kidney stones.Performed By: #### CALCULI #### [address] [address] Dr[address] Lela Knight Comment: Calculus received wet. Wet calculi must be dried before analysis, which delays reporting of results. Leaving calculi wet (such as water, saline, blood, urine) may lead to changes in composition.Comment:[facility] on above:Result Comment: Physician questions regarding Calculi Analysis contact [facility] at: [phone].Performed By: #### CALCULI #### [facility] [address] [place] [address] Dr. Lela CuellarMercy Memorial Hospital on above: Result Comment: Percentage (Represents the % composition)Performed By: #### CALCULI #### [facility] [address] [place] [address] Dr. Lela OkeefeCystineOhio State Harding Hospital on above:Performed By: #### CALCULI #### [facility] [address] [address] [address] Lela Hornemer:[facility] on above: Result Comment: This test was developed and its performance characteristics determined by [facility]. It has not been cleared or approved by the Food and Drug Administration.Performed By: #### CALCULI #### [facility] [address] [address] [address] Lela DuncanDunlap Memorial Hospital on above:Performed By: #### CALCULI #### [facility] [address] [place] [address] Dr. Lela Fuller or CentervilleComformerly [facility] on above: Performed By: #### CALCULI #### [facility] [address] [place] [address] Dr. Lela OkeefeCllqrScqkhrfmfnwcrj04 %NormalPremier HealthComment on above: Performed By: #### CALCULI #### [facility] [address] [place] [address] Dr. Lela OkeefeMg NH4 PO4 (Struvite)[facility] Health Centerment on above: Performed By: #### CALCULI #### [facility] [address] [place] [address] Dr. Lela OkeefeMgHPO4 (Newberyite)[facility] CenterComformerly [facility] on above: Performed By: #### CALCULI #### [facility] [address] [place] [address] Dr. Lela OkeefeOther component(s)[facility] CenterComment on above: Performed By: #### CALCULI #### [facility] [address] [place] [address] Dr. Lela OkeefePDF.[facility] on above:Performed By: #### CALCULI #### [facility] [address] [place] [address] Dr. Lela OkeefePhotoComMagruder Memorial Hospital on above:Result Comment: Photograph will follow under a separate coverPerformed By: #### CALCULI #### [facility] [address] [address] [address] Lela Werner note:CommentOhio State Harding Hospital on above: Result Comment: Calculi report will follow via computer, mail or costing manager delivery.Performed By: #### CALCULI #### [facility] [address] [address] [address] Lela HerculesHohwzRihc3o8NcxqlqWdi[address] on above:Result Comment: Single piece received.Performed By: #### CALCULI #### [facility] [address] [address] [address] Lela Carsonum Acid UrateNOhioHealth Grant Medical Center on above: Performed By: #### CALCULI #### [facility] [address] [address] [address] Lela ChunSycamore Medical Center on above:Result Comment: Right UreterPerformed By: #### CALCULI #### [facility] [address] [address] [address] Lela OreillyProMedica Fostoria Community Hospital on above:Performed By: #### CALCULI #### [facility] [address] [address] [address] Lela Otto [facility] on above:Performed By: #### CALCULI #### [facility] [address] [address] [address] Lela OkeefeUric Acid DihydrateNOhioHealth Grant Medical Center on above: Performed By: #### CALCULI #### [facility] [address] [address] [address] L[address] [place] [address] on above:Performed By: #### CALCULI #### [facility] [address] [address] [address] Lela ChandlerDayton Children's Hospital on above:Performed By: #### CALCULI #### [facility] [address] [address] [address] Lela Kwok HCG QUALon 31-94-5071EJXNZUNLB, QUALNegativeNormalNEGATIVE Premier HealthComment on above:Performed By: #### CBC #### [facility] [address] [place] [address] Dr. Lela JaneC AUTO DIFFon 18-57-2281PPKX #0.0 103/ulNormal0.0-0.1The [facility] CenterComment on above:Performed By: #### CBC #### [facility] [address] [place] [address] Dr. Lela OkeefeBasophils/100 WBC (Bld)0.5 %Normal0.2-2.0The [facility] Comment on above:Performed By: #### CBC #### [facility] [address] [place] [address] Dr. Vogel ChangEO #0.1 103/ulNormal0.0-0.7The [facility] CenterComment on above: Performed By: #### CBC #### [facility] [address] [place] [address] Dr. Lela Aguirreosinophils/100 WBC (Bld)1.2 %Normal0.9-7.0The [facility] Comment on above:Performed By: #### CBC #### [facility] [address] [place] [address] Dr. Lela Aguirrerythrocyte distribution width (RBC) [Ratio]12.3 %Fjcnlr55.0-15.0 The [facility] CenterComment on above:Performed By: #### CBC #### [facility] [address] [place] [address] Dr. Lela OkeefeHematocrit (Bld) [Volume fraction]41.7 %Ggjwoh77.0-48.0The [facility] CenterComment on above:Performed By: #### CBC #### [facility] [address] [place] [address] Dr. Lela OkeefeHemoglobin (Bld) [Mass/Vol]14.1 g/gGDpasyx68.0-16.0The [facility] Centerment on above:Performed By: #### CBC #### [facility] [address] [place] [address] Dr. Lela Sullivan #0.01 10e3/ulNormal0.00-0.03The [facility] on above:Performed By: #### CBC #### [facility] [address] [place] [address] Dr. Lela Sullivan %0.2 %Normal0.0-0.5The [facility] CenterComment on above: Performed By: #### CBC #### [facility] [address] [place] [address] Dr. Lela Louis #2.1 103/ulNormal1.2-3.8The [facility] CenterComformerly [facility] on above:Performed By: #### CBC #### [facility] [address] [place] [address] Dr. Lela Arroyohocytes/100 WBC (Bld)36.5 %Zefkii72.5-60.0The [facility] on above:Performed By: #### CBC #### [facility] [address] [place] [address] Dr. Lela RodUAL DIFF REQNONormalThe [facility] CenterComment on above: Performed By: #### CBC #### [facility] [address] [place] [address] Dr. Lela Gross (RBC) [Entitic mass]30.2 ziIwpcor15.7-34.0The [facility] CenterComment on above:Performed By: #### CBC #### [facility] [address] [place] [address] Dr. Lela Gross (RBC) [Mass/Vol]33.8 g/xLLynudq74.9-35.2The [facility] CenterComment on above:Performed By: #### CBC #### [facility] [address] [place] [address] Dr. Lela Gross (RBC) [Entitic vol]89.3 zLMinwjk53.0-99.0The [facility] CenterComment on above:Performed By: #### CBC #### [facility] [address] [address] [address] Lela Craig #0.5 103/ulNormal0.3-0.8The [facility] CenterComment on above:Performed By: #### CBC #### University [facility] [address] [address] [address] Lela Grahamocytes/100 WBC (Bld)8.4 %Normal1.7-12.0The [facility] Comment on above:Performed By: #### CBC #### [facility] [address] [place] [address] Dr. Lela Guerrero #3.0 103/ulNormal1.4-6.5The [facility] CenterComment on above:Performed By: #### CBC #### [facility] [address] [place] [address] Dr. Lela Greeneutrophils/100 WBC (Bld)53.2 %Ypweqi48.0-75.0The [facility] CenterComment on above:Performed By: #### CBC #### [facility] [address] [place] [address] Dr. Lela Thapa mean volume (Bld) [Entitic vol]9.7 fLNormal9.5-13.5The [facility] CenterComment on above:Performed By: #### CBC #### [facility] [address] [place] [address] Dr. Lela DunawayT234 103/onJnukyk489-895Osj [facility] CenterComment on above: Performed By: #### CBC #### [facility] [address] [place] [address] Dr. Lela OkeefeRBC4.67 106/ulNormal4.20-5.40The [facility] CenterComment on above:Performed By: #### CBC #### [facility] [address] [place] [address] Dr. Lela OkeefeWBC5.6 103/ulNormal4.0-11.0The [facility] HospitalComment on above: Performed By: #### CBC #### [facility] [address] [address] [address] Lela MoonF CHEM 8 (BAS METB)on 82-49-7493Jiwed gap [Moles/Vol]12.5 mmol/LNormalThe [facility] CenterComment on above:Performed By: #### CBC #### [facility] [address] [address] [address] Lela OkeefeCalcium [Mass/Vol]9.1 mg/dLNormal8.5-10.1The [facility] Comment on above:Performed By: #### CBC #### [facility] [address] [place] [address] Dr. Lela OkeefeChloride [Moles/Vol]105 mmol/CSaqzwi26-804Ema [facility] Comment on above:Performed By: #### CBC #### [facility] [address] [place] [address] Dr. Lela OkeefeCO2 [Moles/Vol]28.7 mmol/MIjvkme68.0-32.0The [facility] Comment on above:Performed By: #### CBC #### [facility] [address] [place] [address] Dr. Lela OkeefeCreatinine [Mass/Vol]0.73 mg/dLNormal0.55-1.02The [facility] CenterComment on above:Performed By: #### CBC #### [facility] [address] [place] [address] Dr. Lela AguirreGFR-AF FILIPINO>60Normal>=60The [facility] CenterComment on above:Performed By: #### CBC #### [facility] [address] [address] [address] Lela AguirreGFR-NON AF FILIPINO>60Normal>=60The [facility] CenterComment on above:Performed By: #### CBC #### [facility] [address] [place] [address] Dr. Lela OkeefeGlucose [Mass/Vol]81 mg/xLKiyzqa54-732Iqv [facility] Comment on above:Performed By: #### CBC #### [facility] [address] [address] [address] Lela kOeefePotassium [Moles/Vol]4.2 mmol/LNormal3.5-5.1[facility] Comment on above:Performed By: #### CBC #### [facility] [address] [address] [address] Lela OkeefeSodium [Moles/Vol]142 mmol/SPplslr798-985CxtPremier Health Comment on above:Performed By: #### CBC #### [facility] [address] [address] [address] Lela OkeefeUrea nitrogen [Mass/Vol]11.0 mg/dLNormal7.0-18.0[facility] HealthComment on above:Performed By: #### CBC #### [facility] [address] [address] [address] Lela Thompson nitrogen/Creatinine [Mass ratio]15.1 mg/mgNormMemorial HospitalComment on above:Performed By: #### CBC #### [facility] [address] [address] [address] Lela Saavedra 29-37-0152LCF Coag (PPP) [Relative time]0.97 {INR} NormalPremier HealthComment on above:Performed By: #### CBC #### [facility] [address] [address] [address] Lela Moyer GUIDELINESSEE BELOWLouis Stokes Cleveland VA Medical CenterComment on above:Result Comment: DESIRED INR: 2.0 - 3.0 CONDITIONS NOT LISTED BELOW 2.5 - 3.5 FOR PROSTHETIC HEART VALVE REPLACEMENT 2.5 - 3.5 RECURRENT THROMBOSIS Performed By: #### CBC #### [facility] [address] [place] [address] Dr. Lela OkeefePT Coag (PPP) [Time]10.3 sNormal9.0-11.6ThOhioHealth Comment on above:Performed By: #### CBC #### [facility] [address] [place] [address] [address] [address] Lela Lisa [id number] Coag (Bld) [Time]27.9 sUkprtu74.3-36.2The [facility] CenterComment on above:Performed By: #### CBC #### [facility] [address] [place], [place] [address] Dr. Lela OkeefeCT ABD/PELVIS WO CONon 51-64-5184LQ ABD/PELVIS WO CONEXAMINATION: CT ABD/PELVIS WO CON, 06/02/2022 2:27 PM EDT HISTORY: [...] Electronically authenticated by: IRIS FUNEZ Date: 2022-06-02 15:[address] [place], [place] [address]XR KUB 1 VIEWon [id number] KUB 1 VIEWEXAMINATION: XR KUB 1 VIEW HISTORY: Kidney stone [...] Electronically authenticated by: ZAHRA MCCLENDON Date: 2022-05-20 14:39[facility] CenterC3 and C4 COMPLEMENTon 47-29-3182Afylyjppgz C3, Svmhw081 mg/dL Critically cjfm74-521Yog [facility] CenterComment on above:Performed By: #### CBC #### [facility] [address] [address] [address] Lela OkeefeComplement C4, Serum38 mg/tKQzdhyv38-61Hms [facility] Comment on above:Performed By: #### CBC #### [facility] [address] [address] [address] Lela OkeefeT3, TOTAL (TRIIODOTHYRONINE)on 17-73-8175P5, SWETG464 ng/dLNormal 71-180The [facility] CenterComment on above:Performed By: #### CBC #### [facility] [address] [address] [address] Lela Gold THYROIDon 16-20-4900WL THYROIDEXAMINATION: US THYROID HISTORY: Simple goiter COMPARISON: No relevant comparison [...] Electronically authenticated by: ZAHRA MCCLENDON Date: 2022-04-13 20:29[facility] Medical CenterCBC AUTO DIFFon 30-71-3127MBQK #0.1 103/ulNormal0.0-0.1[facility] HealthComment on above:Performed By: #### CBC #### [facility] [address] [address] [address] Lela OkeefeBasophils/100 WBC (Bld)0.6 %Normal0.2-2.0The [facility] Comment on above:Performed By: #### CBC #### [facility] [address] [place] [address] Dr. Lela Kelly #0.0 103/ulNormal0.0-0.7The [facility] CenterComment on above: Performed By: #### CBC #### [facility] [address] [place] [address] Dr. Lela Aguirreosinophils/100 WBC (Bld)0.4 %Critically low0.9-7.0The [facility] CenterComment on above:Performed By: #### CBC #### [facility] [address] [place] [address] Dr. Lela Aguirrerythrocyte distribution width (RBC) [Ratio]11.9 %Pqoede58.0-15.0 The [facility] CenterComment on above:Performed By: #### CBC #### [facility] [address] [place] [address] Dr. Lela OkeefeHematocrit (Bld) [Volume fraction]41.1 %Phricm33.0-48.0The [facility] CenterComment on above:Performed By: #### CBC #### [facility] [address] [place] [address] Dr. Lela OkeefeHemoglobin (Bld) [Mass/Vol]14.9 g/qLZwkbli11.0-16.0The [facility] CenterComment on above:Performed By: #### CBC #### [facility] [address] [place] [address] Dr. Lela Sullivan #0.03 10e3/ulNormal0.00-0.03The [facility] CenterComment on above:Performed By: #### CBC #### [facility] [address] [place] [address] Dr. Lela Sullivan %0.3 %Normal0.0-0.5The [facility] HospitalComment on above: Performed By: #### CBC #### [facility] [address] [address] [address] Lela Louis #1.1 103/ulCritically low1.2-3.8The [facility] Comment on above:Performed By: #### CBC #### [facility] [address] [address] [address] Lela Arroyohocytes/100 WBC (Bld)12.6 %Critically low20.5-60.0The [facility] CenterComment on above:Performed By: #### CBC #### [facility] [address] [address] [address] Lela Osorio DIFF REQNONormalThe [facility] CenterComment on above: Performed By: #### CBC #### [facility] [address] [address] [address] Lela Gross (RBC) [Entitic mass]29.6 ptCesari34.7-34.0The [facility] CenterComment on above:Performed By: #### CBC #### [facility] [address] [address] [address] Lela Gross (RBC) [Mass/Vol]36.3 g/dLCritically high29.9-35.2The [facility] CenterComformerly [facility] on above:Performed By: #### CBC #### [facility] [address] [address] [address] Lela Gross (RBC) [Entitic vol]81.7 lFPlwjed39.0-99.0The [facility] CenterComment on above:Performed By: #### CBC #### [facility] [address] [address] [address] Lela Craig #0.9 103/ulCritically high0.3-0.8The [facility] Comment on above:Performed By: #### CBC #### [facility] [address] [address] [address] Lela Grahamocytes/100 WBC (Bld)10.0 %Normal1.7-12.0[facility] Comment on above:Performed By: #### CBC #### [facility] [address] [address] [address] Lela Guerrero #6.8 103/ulCritically high1.4-6.5The [facility] Comment on above:Performed By: #### CBC #### [facility] [address] [place] [address] Dr. Lela Greeneutrophils/100 WBC (Bld)76.1 %Critically high43.0-75.0The [facility] CenterComment on above:Performed By: #### CBC #### [facility] [address] [place] [address] Dr. Lela Andreslet mean volume (Bld) [Entitic vol]9.5 fLNormal9.5-13.5The [facility] CenterComment on above:Performed By: #### CBC #### [facility] [address] [place] [address] Dr. Lela OkeefePLT232 103/aiFkkqxe672-648Owx [facility] CenterComment on above: Performed By: #### CBC #### [facility] [address] [place] [address] Dr. Lela OkeefeRBC5.03 106/ulNormal4.20-5.40The [facility] CenterComment on above:Performed By: #### CBC #### [facility] [address] [place] [address] Dr. Lela OkeefeWBC9.0 103/ulNormal4.0-11.0The [facility] CenterComment on above: Performed By: #### CBC #### [facility] [address] [place] [address] Dr. Lela MccordKokulwant 60-51-1418IZ [Catalytic activity/Vol]43 U/OGpfyme41-636Iok [facility] CenterComment on above:Performed By: #### CBC #### [facility] [address] [place] [address] Dr. Lela OkeefeCREATININEchloe 08-19-4972Vynnwaglsq [Mass/Vol]0.85 mg/dLNormal 0.55-1.02The [facility] CenterComment on above:Performed By: #### CBC #### [facility] [address] [place] [address] Dr. Lela AguirreGFR-AF FILIPINO>60Normal>=60The [facility] CenterComment on above:Performed By: #### CBC #### [facility] [address] [place] [address] Dr. Lela AguirreGFR-NON AF FILIPINO>60Normal>=60The [facility] CenterComment on above:Performed By: #### CBC #### [facility] [address] [place] [address] Dr. Lela oH RATE WESTERGRENon 98-93-7305ZQK RATE53 mm/hrCritically high <=20The [facility] CenterComment on above:Performed By: #### CBC #### [facility] [address] [place] [address] Dr. Lela Lim RANDOM W/MICROSCOPICon 60-41-0291ELMQBOFUDVNZ SEENNormalNONE SEENPremier HealthComment on above:Performed By: #### UAMIC #### [facility] [address] [place] [address] Dr. Lela Skinner Ql (U)NegativeNormalNEGATIVEThe [facility] Comment on above:Performed By: #### UAMIC #### [facility] [address] [place] [address] Dr. Lela OkeefeCASTKATEE SEENNormalNONE SEENPremier HealthComment on above:Performed By: #### UAMIC #### [facility] [address] [place] [address] Dr. Lela Gutiérrez (U)CLEARNormalCLEARPremier HealthComment on above: Performed By: #### UAMIC #### [facility] [address] [place] [address] Dr. Lela Cabrera (U)YELLOWNormalYELLOWThe [facility] CenterComment on above: Performed By: #### UAMIC #### [facility] [address] [address] [address] Lela OkeefeCrystals LM Nom (Urine sed)NONE SEENNormalNONE SEENPremier HealthComment on above:Performed By: #### UAMIC #### [facility] [address] [address] [address] Vogel ChangEpithelial cells LM Ql (Urine sed)FEWAbnormalNONE SEEN /RAREThe [facility] CenterComment on above:Performed By: #### UAMIC #### [facility] [address] [address] [address] Lela OkeefeGlucose Ql (U)NegativeNormalNEGATIVEPremier HealthComment on above:Performed By: #### UAMIC #### [facility] [address] [place] [address] Dr. Lela OkeefeHemoglobin Ql (U)NegativeNormalNEGATIVEHighland District Hospital on above:Performed By: #### UAMIC #### [facility] [address] [place] [address] Dr. Lela OkeefeKetones Ql (U)NegativeNormalNEGATIVEPremier HealthComment on above:Performed By: #### UAMIC #### [facility] [address] [address] [address] Lela OkeefeLEUKOCYTESNegativeNormalNEGATIVEPremier HealthComformerly [facility] on above:Performed By: #### UAMIC #### [facility] [address] [address] [address] Lela OkeefeMUCOUSTRACEAbnormalNONE SEENPremier HealthComment on above:Performed By: #### UAMIC #### [facility] [address] [address] [address] Lela OkeefeNitrite Ql (U)NegativeNormalNEGATIVEPremier HealthComment on above:Performed By: #### UAMIC #### [facility] [address] [place] [address] Dr. Lela OkeefepH (U)6.0 [pH]Normal5-9The [facility] HospitalComment on above: Performed By: #### UAMIC #### [facility] [address] [place] [address] Dr. Lela OkeefeHjzicJOP2-2Tukqqx9-6Fob [facility] CenterComformerly [facility] on above:Performed By: #### UAMIC #### [facility] [address] [place] [address] Dr. Lela OkeefeSPEC GRAVITY1.741Povhyz6.005-<=1.025The [facility] CenterComment on above:Performed By: #### UAMIC #### [facility] [address] [place] [address] Dr. Lela OkeefeUA PROTEINNegativeNormalNEGATIVE/ TRACEThe [facility] Comment on above:Performed By: #### UAMIC #### [facility] [address] [place] [address] Dr. Lela Gillbilinogen Qn (U)0.2 {Fidelia'U}/dLNormal0.2 - 1.0The [facility] CenterComment on above:Performed By: #### UAMIC #### [facility] [address] [place] [address] Dr. Lela OkeefeWBCNONE SEENNormalNONE SEENThe [facility] CenterComformerly [facility] on above: Performed By: #### UAMIC #### [facility] [address] [place] [address] Dr. Lela Oneil AUTO DIFFon 93-07-4694UZEK #0.0 103/ulNormal0.0-0.1The [facility] on above:Performed By: #### CBC #### [facility] [address] [place] [address] Dr. Lela OkeefeBasophils/100 WBC (Bld)0.3 %Normal0.2-2.0[facility] Comment on above:Performed By: #### CBC #### [facility] [address] [place] [address] Dr. Lela Kelly #0.0 103/ulNormal0.0-0.7The [facility] Centerment on above: Performed By: #### CBC #### [facility] [address] [place] [address] Dr. Lela Aguirreosinophils/100 WBC (Bld)0.1 %Critically low0.9-7.0The [facility] CenterComment on above:Performed By: #### CBC #### [facility] [address] [place] [address] Dr. Lela Aguirrerythrocyte distribution width (RBC) [Ratio]11.9 %Prrbqq29.0-15.0 The [facility] CenterComment on above:Performed By: #### CBC #### [facility] [address] [place] [address] Dr. Lela OkeefeHematocrit (Bld) [Volume fraction]46.1 %Bqragr37.0-48.0The [facility] CenterComment on above:Performed By: #### CBC #### [facility] [address] [place] [address] Dr. Lela OkeefeHemoglobin (Bld) [Mass/Vol]14.5 g/oYWomfdv42.0-16.0The [facility] CenterComment on above:Performed By: #### CBC #### [facility] [address] [place] [address] Dr. Lela Sullivan #0.01 10e3/ulNormal0.00-0.03The [facility] CenterComment on above:Performed By: #### CBC #### [facility] [address] [place] [address] Dr. Lela Sullivan %0.1 %Normal0.0-0.5The [facility] CenterComment on above: Performed By: #### CBC #### [facility] [address] [place] [address] Dr. Lela Louis #1.1 103/ulCritically low1.2-3.8The [facility] on above:Performed By: #### CBC #### [facility] [address] [place] [address] Dr. Lela Brownmphocytes/100 WBC (Bld)11.7 %Critically low20.5-60.0The [facility] CenterComment on above:Performed By: #### CBC #### [facility] [address] [place] [address] Dr. Lela Osorio DIFF REQNONormalThe [facility] CenterComment on above: Performed By: #### CBC #### [facility] [address] [place] [address] Dr. Lela Gross (RBC) [Entitic mass]29.8 msWqerqd63.7-34.0The [facility] HospitalComment on above:Performed By: #### CBC #### [facility] [address] [place] [address] Dr. Lela Gross (RBC) [Mass/Vol]31.5 g/uDDpkoin95.9-35.2The [facility] CenterComment on above:Performed By: #### CBC #### [facility] [address] [place] [address] Dr. Lela Gross (RBC) [Entitic vol]94.7 yKSqykza53.0-99.0The [facility] CenterComment on above:Performed By: #### CBC #### [facility] [address] [place] [address] Dr. Lela Craig #0.8 103/ulNormal0.3-0.8The [facility] CenterComment on above:Performed By: #### CBC #### [facility] [address] [place] [address] Dr. Lela Grahamocytes/100 WBC (Bld)7.9 %Normal1.7-12.0[facility] Comment on above:Performed By: #### CBC #### [facility] [address] [place] [address] Dr. Lela Guerrero #7.7 103/ulCritically high1.4-6.5The [facility] Comment on above:Performed By: #### CBC #### [facility] [address] [place] [address] Dr. Lela Greeneutrophils/100 WBC (Bld)79.9 %Critically high43.0-75.0The [facility] CenterComment on above:Performed By: #### CBC #### [facility] [address] [place] [address] Dr. Lela Thapa mean volume (Bld) [Entitic vol]10.2 fLNormal9.5-13.5The [facility] CenterComment on above:Performed By: #### CBC #### [facility] [address] [place] [address] Dr. Lela OkeefePLT230 103/abJdkror996-131Fpl [facility] CenterComment on above: Performed By: #### CBC #### [facility] [address] [place] [address] Dr. Lela OkeefeRBC4.87 106/ulNormal4.20-5.40The [facility] CenterComment on above:Performed By: #### CBC #### [facility] [address] [place] [address] Dr. Lela OkeefeWBC9.6 103/ulNormal4.0-11.0The [facility] CenterComment on above: Performed By: #### CBC #### [facility] [address] [place] [address] Dr. Lela Herzog T3on 91-96-6250VYTZ T32.59 pg/mlLNormal2.18-3.98The [facility] CenterComment on above:Performed By: #### CBC #### [facility] [address] [place] [address] Dr. Lela Herzog T4on 03-02-9940Yasn T4 [Mass/Vol]1.00 ng/dLNormal0.76-1.46 The [facility] CenterComment on above:Performed By: #### FT4 #### [facility] [address] [place] [address] Dr. Lela Espinoza CHEM 8 (BAS METB)on 13-06-5941Hwuex gap [Moles/Vol]12.3 mmol/LNormalThe [facility] CenterComment on above:Performed By: #### BMP, TSH #### [facility] [address] [address] [address] Lela OkeefeCalcium [Mass/Vol]9.4 mg/dLNormal8.5-10.1The [facility] Comment on above:Performed By: #### BMP, TSH #### [facility] [address] [address] [address] Lela OkeefeChloride [Moles/Vol]102 mmol/UFklcri94-717Jtg [facility] Comment on above:Performed By: #### BMP, TSH #### [facility] [address] [address] [address] Lela OkeefeCO2 [Moles/Vol]28.3 mmol/GPbyuvr60.0-32.0The [facility] Comment on above:Performed By: #### BMP, TSH #### [facility] [address] [place] [address] Dr. Lela OkeefeCreatinine [Mass/Vol]0.77 mg/dLNormal0.55-1.02The [facility] CenterComment on above:Performed By: #### BMP, TSH #### [facility] [address] [address] [address] Lela AguirreGFR-AF FILIPINO>60Normal>=60The [facility] CenterComment on above:Performed By: #### BMP, TSH #### [facility] [address] [place] [address] Dr. Lela AguirreGFR-NON AF FILIPINO>60Normal>=60The [facility] CenterComment on above:Performed By: #### BMP, TSH #### [facility] [address] [address] [address] Lela OkeefeGlucose [Mass/Vol]101 mg/vGWwrwli06-150LhgPremier Health Comment on above:Performed By: #### BMP, TSH #### [facility] [address] [address] [address] Lela OkeefePotassium [Moles/Vol]4.6 mmol/LNormal3.5-5.1The [facility] Comment on above:Performed By: #### BMP, TSH #### [facility] [address] [address] [address] Lela OkeefeSodium [Moles/Vol]138 mmol/VTxhjun664-897Ivy [facility] Comment on above:Performed By: #### BMP, TSH #### [facility] [address] [address] [address] Lela OkeefeUrea nitrogen [Mass/Vol]11.0 mg/dLNormal7.0-18.0The [facility] CenterComment on above:Performed By: #### BMP, TSH #### [facility] [address] [address] [address] Lela OkeefeUrea nitrogen/Creatinine [Mass ratio]14.3 mg/mgNormalThe [facility] CenterComment on above:Performed By: #### BMP, TSH #### [facility] [address] [place] [address] Dr. Lela Pickens 58-66-8416WQM3.346 uIU/mLCritically low0.358-3.740The [facility] CenterComment on above:Performed By: #### BMP, TSH #### [facility] [address] [place] [address] Dr. Lela Kay M/2D COMPLETEon [id number] M/2D COMPLETE Patient: MORGAN KIRKLAND Exam Date: 12/24/2021 : 1990 Gender:F Ordering : ROYER DINH Admission #: [id number] Family : DR DAVID NEWBERRY M.D. Order #: [id number] CLICK HERE TO VIEW EXAM ECHOCARDIOGRAM REPORT [...] by: Emerson Stinson M.D. on 12/24/2021 at 15:14NoalThCrystal [facility] AUTO DIFFon [id number] #0.0 103/ulNormal0.0-0.1The [facility] CenterComment on above:Performed By: #### CBC #### [facility] [address] [place] [address] Dr. Lela OkeefeBasophils/100 WBC (Bld)0.4 %Normal0.2-2.0[facility] Comment on above:Performed By: #### CBC #### [facility] [address] [place] [address] Dr. Lela Kelly #0.1 103/ulNormal0.0-0.7The [facility] CenterComment on above: Performed By: #### CBC #### [facility] [address] [address] [address] Lela Aguirreosinophils/100 WBC (Bld)1.4 %Normal0.9-7.0The [facility] Comment on above:Performed By: #### CBC #### [facility] [address] [place] [address] Dr. Lela Aguirrerythrocyte distribution width (RBC) [Ratio]12.0 %Edmfnx36.0-15.0 The [facility] CenterComment on above:Performed By: #### CBC #### [facility] [address] [place] [address] Dr. Lela OkeefeHematocrit (Bld) [Volume fraction]43.0 %Kesmlg88.0-48.0The [facility] CenterComment on above:Performed By: #### CBC #### [facility] [address] [place] [address] Dr. Lela OkeefeHemoglobin (Bld) [Mass/Vol]14.4 g/kLTwfanp71.0-16.0The [facility] CenterComment on above:Performed By: #### CBC #### [facility] [address] [place] [address] Dr. Lela Sullivan #0.02 10e3/ulNormal0.00-0.03The [facility] on above:Performed By: #### CBC #### [facility] [address] [place] [address] Dr. Lela Sullivan %0.3 %Normal0.0-0.5The [facility] CenterComformerly [facility] on above: Performed By: #### CBC #### [facility] [address] [place] [address] Dr. Lela Louis #2.1 103/ulNormal1.2-3.8The [facility] CenterComformerly [facility] on above:Performed By: #### CBC #### [facility] [address] [place] [address] Dr. Lela Arroyohocytes/100 WBC (Bld)29.2 %Kvkhdn28.5-60.0The [facility] CenterComformerly [facility] on above:Performed By: #### CBC #### [facility] [address] [place] [address] Dr. Lela RodUAL DIFF REQNONormalThe [facility] on above: Performed By: #### CBC #### [facility] [address] [place] [address] Dr. Lela Gross (RBC) [Entitic mass]29.7 inWgskxv60.7-34.0The [facility] on above:Performed By: #### CBC #### [facility] [address] [place] [address] Dr. Lela Gross (RBC) [Mass/Vol]33.5 g/zBHnfjda52.9-35.2The [facility] on above:Performed By: #### CBC #### [facility] [address] [place] [address] Dr. Lela Gross (RBC) [Entitic vol]88.7 eACgjwfl84.0-99.0The [facility] HospitalComment on above:Performed By: #### CBC #### [facility] [address] [address] [address] Lela Craig #0.5 103/ulNormal0.3-0.8The [facility] CenterComment on above:Performed By: #### CBC #### [facility] [address] [address] [address] Lela Grahamocytes/100 WBC (Bld)6.9 %Normal1.7-12.0The [facility] Comment on above:Performed By: #### CBC #### [facility] [address] [place] [address] Dr. Lela Guerrero #4.4 103/ulNormal1.4-6.5The [facility] CenterComment on above:Performed By: #### CBC #### [facility] [address] [place] [address] Dr. Lela Greeneutrophils/100 WBC (Bld)61.8 %Isdpcl81.0-75.0The [facility] CenterComment on above:Performed By: #### CBC #### [facility] [address] [place] [address] Dr. eLla Thapa mean volume (Bld) [Entitic vol]9.3 fLCritically low 9.5-13.5The [facility] CenterComment on above:Performed By: #### CBC #### [facility] [address] [place] [address] Dr. Lela OkeefePLT239 103/icCzbfud801-944Aib [facility] CenterComment on above: Performed By: #### CBC #### [facility] [address] [place] [address] Dr. Lela OkeefeRBC4.85 106/ulNormal4.20-5.40The [facility] Centerment on above:Performed By: #### CBC #### [facility] [address] [place] [address] Dr. Lela OkeefeWBC7.1 103/ulNormal4.0-11.0The [facility] CenterComment on above: Performed By: #### CBC #### [facility] [address] [address] [address] Lela OkeefeLIPID PROFILEon 89-26-3270PQDV-HDL RATIO NORMSSumma Health Wadsworth - Rittman Medical CenterComment on above:Result Comment: 3.3 - 4.4 LOW RISK 4.4 - 7.1 AVERAGE RISK 7.1 - 11.0 MODERATE RISK >11.0 HIGH RISKPerformed By: #### CBC #### [facility] [address] [address] [address] Lela OkeefeCholesterol [Mass/Vol]177 mg/dLNormal<=200[facility] Comment on above:Performed By: #### CBC #### [facility] [address] [address] [address] Lela OkeefeCholesterol in HDL [Mass/Vol]38 mg/dLCritically erf87-06KjzPremier HealthComment on above:Performed By: #### CBC #### [facility] [address] [address] [address] Lela OkeefeCholesterol in LDL [Mass/Vol]121.6 mg/dLLouis Stokes Cleveland VA Medical CenterComment on above:Performed By: #### CBC #### [facility] [address] [address] [address] Lela OkeefeCholesterdelores.total/Cholesterol in HDL [Mass ratio]4.7 {ratio} NormalPremier HealthComment on above:Performed By: #### CBC #### [facility] [address] [address] [address] Lela Myers NORMAL> or = 60 mg/dl - LOW CARDIOVASCULAR RISK <40 mg/dl - HIGH CARDIOVASCULAR RISKLouis Stokes Cleveland VA Medical CenterComment on above:Performed By: #### CBC #### [facility] [address] [address] [address] Lela OkeefeLDL CALC NORMALSEE [facility] CompanyComment on above:Result Comment: <100 mg/dl OPTIMAL 100 - 129 mg/dl NEAR OR ABOVE OPTIMAL 130 - 159 mg/dl BORDERLINE HIGH 160 - 189 mg/dl HIGH >190 mg/dl VERY HIGH Performed By: #### CBC #### [facility] [address] [address] [address] Lela OkeefeTriglyceride [Mass/Vol]87 mg/dLNormal<=150The [facility] Comment on above:Performed By: #### CBC #### [facility] [address] [address] [address] Lela OkeefeVLDL CALC17.4 mg/dLNormalThe [facility] CenterComment on above: Performed By: #### CBC #### [facility] [address] [address] [address] Lela OkeefePROF CHEM 8 (BAS METB)on 08-62-3266Erykc gap [Moles/Vol]9.2 mmol/LNormalPremier HealthComment on above:Performed By: #### BMP, TSH, LIPID #### [facility] [address] [place] [address] Dr. Lela OkeefeCalcium [Mass/Vol]8.9 mg/dLNormal8.5-10.1[facility] Comment on above:Performed By: #### BMP, TSH, LIPID #### [facility] [address] [place] [address] Dr. Lela OkeefeChloride [Moles/Vol]105 mmol/JHxgcdk38-196GukPremier Health Comment on above:Performed By: #### BMP, TSH, LIPID #### [facility] [address] [place] [address] Dr. Lela OkeefeCO2 [Moles/Vol]28.8 mmol/COxmfei94.0-32.0The [facility] Comment on above:Performed By: #### BMP, TSH, LIPID #### [facility] [address] [place] [address] Dr. Lela OkeefeCreatinine [Mass/Vol]0.77 mg/dLNormal0.55-1.02The [facility] CenterComment on above:Performed By: #### BMP, TSH, LIPID #### [facility] [address] [place] [address] Dr. Yilan ChangEGFR-AF FILIPINO>60Normal>=60The [facility] CenterComment on above:Performed By: #### BMP, TSH, LIPID #### [facility] [address] [place] [address] Dr. Lela AguirreGFR-NON AF FILIPINO>60Normal>=60The [facility] CenterComment on above:Performed By: #### BMP, TSH, LIPID #### [facility] [address] [place] [address] Dr. Lela OkeefeGlucose [Mass/Vol]103 mg/rUSewcql55-172Ach [facility] Comment on above:Performed By: #### BMP, TSH, LIPID #### [facility] [address] [place] [address] Dr. Lela OkeefePotassium [Moles/Vol]4.0 mmol/LNormal3.5-5.1The [facility] Comment on above:Performed By: #### BMP, TSH, LIPID #### [facility] [address] [place] [address] Dr. Lela Rosedium [Moles/Vol]139 mmol/VBfzmnp627-504Krs [facility] Comment on above:Performed By: #### BMP, TSH, LIPID #### [facility] [address] [place] [address] Dr. Lela OkeefeUrea nitrogen [Mass/Vol]10.0 mg/dLNormal7.0-18.0The [facility] CenterComment on above:Performed By: #### BMP, TSH, LIPID #### [facility] [address] [place] [address] Dr. Lela Thompson nitrogen/Creatinine [Mass ratio]13.0 mg/mgNormalThe [facility] CenterComment on above:Performed By: #### BMP, TSH, LIPID #### [facility] [address] [place] [address] Dr. Lela Pickens 61-55-5128OSR2.092 uIU/mLNormal0.358-3.740The [facility] CenterComment on above:Performed By: #### CBC #### [facility] [address] [address] [address] Lela OkeefeThe [facility] [id number] ID: [id number] Author: Jose Olea Service: ? Author Type: Physician Type: Progress Notes Filed: 03/29/2019 10:25 AM Note Text: Patient here for ultrasound. See ultrasound report for details. Vanna PatrickMetroHealth [facility] [id number] ID: [id number] Author: Dasha Ibanez Service: ? Author Type: [...] The SUSIE is normal. See ultrasound report Vanna MackenzieMetroHealth Cleveland Heights [facility] Center 03-01-2019 PROGRESSHNO ID: [id number] Author: Tobias Yang Service: ? Author Type: [...] in the Imaging tab in Epic ? Vanna CasanovaMetroHealth Cleveland [facility] Center [id number] HNO ID: [id number] Author: Tobias Yang Service: ? Author Type: [...] report available in the Imaging tab in [employer] ? Vanna CasanovaMetroHealth [facility] [id number] HNO ID: [id number] Author: Tobias Yang Service: ? Author Type: [...] report available in the Imaging tab in [facility] ? Vanna CasanovaMetroHealth [facility] [id number] HNO ID: [id number] Author: Tobias Yang Service: ? Author Type: [...] the Imaging tab in Epic Tobias Yang MDNoOur Lady of [facility] Vital Signs Date TimeVital SignValuePerforming [id number] 11:27-0400Body mass index (BMI) [Ratio]43.94 kg/m9Oakruzlu RinMeteo Protect DO Work Phone: [facility] CenterKvekgulsgb64-31-3957 11:27-0400Body .09 kgKathleen incuBET DO Work Phone: [facility] CenterFgjjpoccty69-96-8653 11:27-0400Diastolic blood vluyyrzx63 mm[Hg]Dasha incuBET DO Work Phone: [facility] CenterPmgihabjgx19-74-1034 11:27-0400Systolic blood mm[Hg]Dasha incuBET DO Work Phone: [facility] CenterFlupcmygbl31-92-3265 09:43-0400Body vaowrv177.72 cmDavid Newberry MD Work Phone: [facility]06-13-2025 09:43-0400 Body mass index (BMI) [Ratio]43.7 kg/h7YcyzysDavid Newberry MD Work Phone: [facility]06-13-2025 09:43-0400 Body fojeta386.63 kgDavid Newberry MD Work Phone: [facility]06-13-2025 09:43-0400 Diastolic blood xkzvekny66 mm[Hg]David Newberry MD Work Phone: [facility]06-13-2025 09:43-0400 Heart rate71 /minDavid Newberry MD Work Phone: [facility]06-13-2025 09:43-0400 Systolic blood pzpodluh286 mm[Hg]David Newberry MD Work Phone: [phone] [place], [place] 5676305-26-2025 11:06-0400 Body outkxm588.72 cmDavid Newberry MD Work Phone: [phone]05-26-2025 11:06-0400 Body mass index (BMI) [Ratio]44.1 kg/b3GmfszuDavid Newberry MD Work Phone: [phone]05-26-2025 11:06-0400 Body qwtzpectsbh15.7 [degF]David Newberry MD Work Phone: [phone]05-26-2025 11:06-0400 Body njgnet602.59 kgDavid Newberry MD Work Phone: [phone])[address]05-26-2025 11:06-0400 Diastolic blood ijdwcyfp02 mm[Hg]David Newberry MD Work Phone: [phone]05-26-2025 11:06-0400 Heart rate80 /Sander Newberry MD Work Phone: [phone] [place], [place] 8525305-26-2025 11:06-0400 Respiratory rate14 /Sander Newberry MD Work Phone: [phone]05-26-2025 11:06-0400 SaO2% (BldA) [Mass fraction]99 %David Newberry MD Work Phone: [phone]05-26-2025 11:06-0400 Systolic blood ufetioax538 mm[Hg]David Newebrry MD Work Phone: [phone]02-21-2025 08:44-0500 Blood Pressure Ani BOLAÑOS [facility]02-21-2025 08:44-0500Body qzqkinbkmtc30.6 [degF]Clark BOLAÑOS [facility]02-21-2025 08:44-0500Diastolic blood mygjhotk88 mm[Hg]Clark BOLAÑOS [facility]02-21-2025 08:44-0500Heart rate58 /minPatrick BOLAÑOS [facility]02-21-2025 08:44-0500Respiratory rate16 /minPatrick BOLAÑOS [facility]02-21-2025 08:44-0500Systolic blood jkmjywkm545 mm[Hg]Clark BOLAÑOS [facility]11-25-2024 08:30-0500Body .7 cmAngwil Tariq [employer]ICATION[employer] PROFESSION[employer] Work Phone: [address] [phone] 08:30-0500Body mass index (BMI) [Ratio]45.31 kg/d3ObktgxJoanna Pearsonr COMMUNICATION[employer] PROFESSIONAL Work Phone: [address] [phone] 08:30-0500Body .17 kgAngela Vangiemor COMMUNICATION[employer] PROFESSIONAL Work Phone: [address] [phone] 08:30-0500Diastolic blood syruzlbh76 mm[Hg]Joanna Pearsonr [employer]ICATION[employer] PROFESSIONAL Work Phone: [address] [phone] 08:30-0500Heart rate65 /min Joanna Pearsonr [employer]ICATION[employer] PROFESSIONAL Work Phone: [phone] [address] StreetHzwvudkvop62-74-4434 08:30-0500Systolic blood rzjuhrbl301 mm[Hg]Joanna Vencesmor COMMUNICATION[employer] PROFESSIONAL Work Phone: [phone] 316-868916 [address] StreetZbyzckzaiq79-16-4199 08:51-0500Blood Pressure LocationPatrick BOLAÑOS [facility]11-15-2024 08:51-0500Body kqividubxkd12.6 [degF]Clark BOLAÑOS [facility]11-15-2024 08:51-0500Diastolic blood bfyhhkfh28 mm[Hg]Clark BOLAÑOS [facility]11-15-2024 08:51-0500Heart rate52 /minPatrick whoactually [facility]11-15-2024 08:51-0500Respiratory rate16 /minPatrick BOLAÑOS [facility]11-15-2024 08:51-0500Systolic blood xtbuxjmb878 mm[Hg]Clark BOLAÑOS [facility]09-20-2024 08:52-0400Body uulrwk910.72 [facility]09[facility]2024 08:52-0400Body mass index (BMI) [Ratio]43.7 kg/x3RioecdwfuKeenan Private Hospital09-20-2024 08:52-0400Body mawxuk620.43 kgKeenan Private Hospital09-20-2024 08:52-0400Diastolic blood xygqrsid03 mm[Hg] [facility]09-20-2024 08:52-0400Heart rate70 /[facility]09-20-2024 08:52-0400Respiratory rate18 /[facility]09-20-2024 08:52-5830CrI9% (BldA) [Mass fraction]97 % [facility]09-20-2024 08:52-0400Systolic blood yetfqvli177 mm[Hg][facility]09-13-2024 08:36-0400Body mass index (BMI) [Ratio]43.2 kg/j8UienvcgzbKeenan Private Hospital09-13-2024 07:28-0400 Body .72 cmKe[facility]09-13-2024 07:28-0400Body .72 kgKeenan Private Hospital09-04-2024 13:11-0400Body height 172.7 cmKathlmarcial Rinkes DO Work Phone: [facility] CenterVbvhgkltbb94-33-4986 13:11-0400Body mass index (BMI) [Ratio]43.79 kg/q5Pvukedry Rinkes DO Work Phone: [facility] CenterCdrsxvlxgq35-43-4300 13:110400Body rnuqgh963.64 kgKathleen Rinkes DO Work Phone: [facility] CenterSiaeufolmj29-78-3633 13:11-0400Diastolic blood aambkkvt56 mm[Hg]Dasha Rinkes DO Work Phone: [facility] CenterXovpakturf47-54-1743 13:11-0400Systolic blood elxwhxmg644 mm[Hg]Dasha Rachanakes DO Work Phone: [facility] CenterZutjupuphm20-48-9795 15:14-0400Body yoqjkb171.72 cmKe[facility]08-05-2024 15:14-0400Body mass index (BMI) [Ratio]43.4 kg/d0GscqpqqimKeenan Private Hospital08-05-2024 15:14-0400Body ccoyep347.72 [facility]08-05-2024 15:14-0400Diastolic blood mm[Hg][facility]08-05-2024 15:14-0400 Heart rate60 /[facility]08-05-2024 15:14-0400 Respiratory rate18 /[facility]08-05-2024 15:14-0400 SaO2% (BldA) [Mass fraction]100 %[facility]08-05-2024 15:14-0400Systolic blood oestqypg207 mm[Hg][facility] 09-28-2023 15:34-0400Body rhnaec709.72 cmKe[facility]an [facility] Hospital 09-28-2023 15:34-0400Body mass index (BMI) [Ratio]43.4 kg/u2HczjdcpsvKeenan Private Hospital07-15-2024 15:34-0400Body rvitnb359.72 kgKeenan Private Hospital07-15-2024 15:34-0400Diastolic blood idryzuun88 mm[Hg][facility]07-15-2024 15:34-0400Heart rate83 /[facility]07-15-2024 15:34-8326VsW3% (BldA) [Mass fraction]98 %[facility]07-15-2024 15:34-0400Systolic blood bbjihrvw303 mm[Hg] [facility]06-21-2024 08:03-0400Body submxj883.72 cm [facility]06-21-2024 08:03-0400Body mass index (BMI) [Ratio]43.2 kg/d5OecubvwvuKeenan Private Hospital06-21-2024 08:03-0400Body loegck938.82 kgKeenan Private Hospital06-21-2024 08:03-0400Diastolic blood unpwzijw37 mm[Hg][facility]06-21-2024 08:03-0400 Heart rate61 /[facility]06-21-2024 08:03-0400 Respiratory rate16 /[facility]06-21-2024 08:03-0400 SaO2% (BldA) [Mass fraction]98 %[facility]06-21-2024 08:03-0400Systolic blood dpehjycq700 mm[Hg][facility] 07-24-2023 08:28-0400Body zuwxel348.18 cmKeenan Private Hospital 07-24-2023 08:28-0400Body mass index (BMI) [Ratio]44.1 kg/r3ZzttwyznjKeenan Private Hospital05-10-2024 08:28-0400Body krizjn917.91 kgKeenan Private Hospital05-10-2024 08:28-0400Diastolic blood ksaajfnw10 mm[Hg][facility]05-10-2024 08:28-0400Heart rate63 /[facility]05-10-2024 08:28-0400Systolic blood mm[Hg][facility]01-05-2024 08:30-0500Body qghoqv789.18 cmDavid Newberry [facility] [employer] Other 01-05-2024 08:30-0500Body mass index (BMI) [Ratio] 43.47 kg/r7CktazhDavid Newberry Other [facility] [employer] Other 01-05-2024 08:30-0500Body qunvrz620.92 kgDavid Newberry Other [facility] [employer] Other 01-05-2024 08:30-0500Diastolic blood mm[Hg] David Newberry [facility] hospital [employer] Other 01-05-2024 08:30-0500Systolic blood erizogfp963 mm[Hg] David Newberry Other [facility] [employer] Other [phone] 08:56-0500Blood Pressure [email or web address] [facility]11-10-2023 08:56-0500Diastolic blood crusapkc48 mm[Hg]Clark BOLAÑOS [facility]11-10-2023 08:56-0500Heart rate73 /minPatrick BOLAÑOS [facility]11-10-2023 08:56-0500Respiratory rate16 /minPatrick BOLAÑOS [facility]11-10-2023 08:56-0500Systolic blood mboajibr572 mm[Hg]Clark BOLAÑOS [facility]10-16-2023 12:42-0400Diastolic blood hicnqwtt89 mm[Hg]MD David Newberry Work Phone: [phone]10-16-2023 12:42-0400 Heart rate95 /minMD David Newberry Work Phone: [phone]10-16-2023 12:42-0400 Respiratory rate18 /minMD David Newberry Work Phone: [phone]10-16-2023 12:42-0400 SaO2% (BldA) [Mass fraction]97 %MD David Newberry Work Phone: [phone] [place], [place] [address]10-16-2023 12:42-0400 Systolic blood lxdatgdu568 mm[Hg]MD David Newberry Work Phone: [phone]10-16-2023 09:45-0400 Body voshwmfltkj04.6 [degF]MD David Newberry Work Phone: [phone]10-16-2023 09:07-0400 Inhaled oxygen flow rate8 L/minMD David Newberry Work Phone: [phone]10-16-2023 07:18-0400 Body rupvhy188.18 cmMD David Newberry Work Phone: [phone]10-16-2023 07:18-0400 Body mass index (BMI) [Ratio]42.3 kg/m2MD David Newberry Work Phone: [phone]10-16-2023 07:18-0400 Body usgagn897.46 kgMD David Newberry Work Phone: [phone]03-06-2023 10:18-0500 Blood Pressure LocationClark BOLAÑOS [facility]03-06-2023 10:18-0500Diastolic blood cpayqcuh73 mm[Hg]Clark BOLAÑOS [facility]03-06-2023 10:18-0500Heart rate51 /minClark BOLAÑOS [facility]03-06-2023 10:18-0500Respiratory rate16 /Freddie BOLAÑOS [facility]03-06-2023 10:18-0500Systolic blood cioeyklk453 mm[Hg]Clark MIKY [facility]01-26-2023 15:00-0500Body lzxcni034.18 cmRubyjazlyn Newberry Other [employer] Other 01-26-2023 15:00-0500Body mass index (BMI) [Ratio] 36.33 kg/q8VqgsqbDavid Newberry Other [employer] Other 01-26-2023 15:00-0500Body tkhhqy646.24 kgDavid Newberry Other [employer] Other 01-26-2023 15:00-0500Diastolic blood mm[Hg] David Newberry Other [employer] Other 01-26-2023 15:00-0646KxU4% (BldA) [Mass fraction]97 % David Newberry Other [employer] Other 01-26-2023 15:00-0500Systolic blood rllikkac997 mm[Hg] David Newberry Other [employer] Other Encounters Encounter DateEncounter TypeCare ProviderFacilityStart: 25-01-7659zyxksnyzuu Clark BOLAÑOSFacility:DIONY ZapataueStart: 29-83-8530moqoebjlxtMRPH [facility] Centertart: 88-27-0240qgfilravhhMROFHolzer Hospitaltart: 11-25-2024 End: 81-64-1481Uqmzvv flowsheetKathleen E Rinkes DO Work Phone: [facility]BGYNStart: 11-25-2024 End: 08-13-5587Jbqabg flowsheetKathleen E Rinkes DO Work Phone: [facility]BGYNStart: 11-25-2024 End: 16-07-6526Mdjabic encounter statusKathleen E Rinkes DO Work Phone: NO HealthcareStart: 11-25-2024 End: 84-62-6503Ybovjrpw preventive med est patient 18-39 yrsKathleen E Rinkes DO Work Phone: noms [place] OBGYNComment on above:Encounter for gynecological examination without abnormal finding; Encounter for screening for malignant neoplasm of vaginaStart: 11-25-2024 End: 65-13-0486anyolzwfodTZLFPBTN E RINKESNot AvailableStart: 11-18-2024 End: 08-75-3845Ldebqdji ReferredDavid Newberry MD-Lab [facility] Work Phone: Start: 11-18-2024 End: 21-70-9535tgmxrkcrohGbakap E Braun MD Work Phone: [facility] Work Phone: Start: 11-18-2024 End: 36-28-5176Mvvyvyx encounter Noman Newberry MD-[facility] Work Phone: Start: 69-15-6128rxolmmevgfVBOCP GRUBBUniversPremier Health [facility] Southtart: 11-46-9612inpmihszhyAAOWSumma Health Wadsworth - Rittman Medical Centertart: 99-21-8680ushkawzwjfEUDUMercy Health Willard Hospitaltart: 08-26-2024 End: 21-84-9251Zkomayj encounter Noman Newberry MD-[facility] Work Phone: start: 08-08-2024 End: 16-99-9444eaewulwnejNxxgdy E Braun MD Work Phone: [facility] Work Phone: Start: 08-08-2024 End: 00-10-6094Zzkwmcq encounter procedureDavid Newberry MD Work Phone: [facility] Sourav Work Phone: Start: 49-66-2541rnzqdzybudZFXD [facility] Hospitaltart: 07-20-2024 End: 66-20-4447ftlvkflhneFOSVMZT [facility] Hospitaltart: 15-31-8703txcrobfxqiAPHP [facility] Hospitaltart: 06-03-2024 End: 31-26-6291wbjkghfdqcTpxdval R WATERSFacility:FTMCStart: 06-03-2024 End: 18-68-9514qlpjfzhsorNxwsiny R WATERSFacility:EU BellevueStart: 05-06-2024 End: 30-00-9150ipfvfvjyvfKdqnihd R WATERSFacility:EU BellevueStart: 05-06-2024 End: 79-95-0592Wtizscg encounter procedureClark BOLAÑOS [facility] start: 49-83-8842zotxasdxpiRQUU [facility] Hospitaltart: 27-74-6850ayxwhguaibONBW [facility] Hospitaltart: 88-63-4603vamlsycwiwTVIK [facility] Hospitaltart: 69-03-0658snpzputrrpCQFNBHB [facility] Hospitaltart: 02-08-2024 End: 92-60-3862Axumum Teena Potter NP Work Phone: [facility] PREBLEtart: 02-08-2024 End: 05-53-5081Cnkinx flowsheetJoanna Potter COMMUNICATIONS PROFESSIONAL Work Phone: noMS [facility] R[facility]TEStart: 02-08-2024 End: 23-22-0786rklqyhuuccWYOKIP GILLMORNot AvailableStart: 02-08-2024 End: 95-25-6593Hfrsmo outpatient visit 25 minutesAngeclemencia Potter COMMUNICATIONS PROFESSIONAL Work Phone: noMS [facility] ROUTEComment on above:KRISTA (obstructive sleep apnea) (Primary Dx); Obesity due to excess calories, unspecified obesity severity; Hypoxia; HypersomniaStart: 78-80-6688dpxcnufrluXVULLake County Memorial Hospital - Westtart: 01-29-2024 End: 24-69-2719hjhjyvdjdiLzytcid R WATERSFacility:EU ueStart: 01-29-2024 End: 22-17-5546Kxzvivu encounter Dipika BOLAÑOS [facility] start: 69-70-0003pxumjcolwsMGIGMercy Health Willard Hospitaltart: 01-14-2024 End: 74-16-4339qjosusoeriBboiixh R WATERSFacility: tart: 01-14-2024 End: 67-21-0769Uftgxtv encounter Dipika BOLAÑOS [facility] start: 12-04-2023 End: 96-08-0253xyerlqyxlvXeqkhrpffGrand [facility] Work Phone: Start: 12-04-2023 End: 15-12-4799Yahxlxv encounter procedure[facility] Work Phone: Start: 11-27-2023 End: 70-74-5750jfjbauiuayNrhgyiqnoAvita Health [facility] Work Phone: Start: 11-27-2023 End: 34-22-9926Fxxrtdq [facility] Work Phone: Start: 11-18-2023 End: 12-92-3617Vcogkc flowsheetKathleen E Rinkes DO Work Phone: noms [facility] OBStart: 11-18-2023 End: 01-97-1280Pwfebq flowsheetKathleen E Rinkes DO Work Phone: noms SWS OBStart: 11-18-2023 End: 45-12-9294Ptzaena encounter statusKathleen E Rinkes DO Work Phone: [facility] Work Phone: start: 11-18-2023 End: 28-41-2236Fkrxuftw preventive med est patient 18-39 yrsKathleen E Rinkes DO Work Phone: noms [facility] OBComment on above:Encounter for gynecological examination without abnormal finding (Primary Dx); Encounter for screening for malignant neoplasm of vagina; Yeast infectionStart: 10-19-2023 End: 61-16-5954twbmhtmmdsKjfxbfhncAvita Health System [facility] Hospital Work Phone: Start: 10-19-2023 End: 12-42-4148Rppqifr encounter [facility] Work Phone: Start: 09-28-2023 End: 57-17-2911zokekasuldInyjpejrvAvita Health System [facility] Hospital Work Phone: Start: 09-28-2023 End: 92-11-3279Qbarpml [facility] Work Phone: Start: 09-04-2023 End: 92-31-0544blfzcnanahAvpwrmdgwAvita Health System [facility] Work Phone: Start: 09-04-2023 End: 81-61-0816Lxulkeq [facility] Work Phone: Start: 08-07-2023 End: 85-53-9965jfnxnilctnUtfjova R WATERSFacility:FTMCStart: 08-07-2023 End: 25-77-5966Wjw Drop offPajayjay Roldan MIKY [facility] Start: 08-07-2023 End: 90-46-5993zeehdogfagEtvszyl R WATERSFacility:EU [place]uskyStart: 08-07-2023 End: 49-90-3640Jwikvuv encounter procedurePajayjay Roldan MIKY [facility] Start: 61-42-2079Nhl-patient / Non-visitFirreston hospital center Physician [facility] Fangcang Work Phone: Start: 07-24-2023 End: 58-02-3872qkoxjuhmedNkqpvtfyfGrand Lake [facility] Work Phone: Start: 07-24-2023 End: 53-94-6164Cbuvbus encounter procedureSulyreston hospital center Physician Group-[facility] Work Phone: Start: 03-20-2023 End: 02-13-0924giqlrkwrlcPiiqjt Braun Other [place] [employer] Other Start: 49-20-1257Vncehs outpatient visit 15 minutes David Baptiste [facility] ClinicStart: 02-27-2023 End: 32-65-1380ctsxsebzjbETCZCF BRAUNMercy Albright HospitalStart: 02-27-2023 End: 55-97-9554Hgazalcwvd hospital visit by physicianU[facility] [address] [place] [address] Non-Invasive CardiologyComment on above:Postural dizziness with near syncopeStart: 01-23-2023 End: 58-47-7912Bwzcsgs encounter procedureClark Roldan MIKY [facility] Darcie start: 01-20-2023 End: 25-23-5455swvfedneahLH David E Rohith Work Phone: [facility] Work Phone: Start: 01-20-2023 End: 78-04-4386Ywwebdd encounter procedureMD David Newberry Work Phone: [facility]-Lab [address] Work Phone: Start: 12-29-2022 End: 39-23-4848Lskmxplxh to same day surgery centerMD Christina Newberry Work Phone: [facility] CampusStart: 12-15-2022 End: 26-80-3663pqkjubwhloKQ Marcia E Rohith Work Phone: [facility] Work Phone: Start: 12-15-2022 End: 03-13-2700Ckbygxm encounter procedureMD Christina Newberry Work Phone: [facility] Dsz-Pao-Zbcibudz Testing Work Phone: Start: 10-10-2022 End: 50-90-5476siswxggnnlKqfzmn Rohith Other [place] [employer] Other Start: 40-71-0738Naltysnzp encounterMarjazlyn RohithGalion Hospitaltart: 07-17-2022 End: 80-48-0396qlwfwgfmyoKU DAVID NEWBERRYFacility:T6Gbjmd: 23-33-2691Vapdrdqag for other preprocedural examinationDR CLARK BOLAÑOS .[facility] Start: 43-25-5777Fuiroawke for preprocedural cardiovascular examinationDR CLARK BOLAÑOS .[facility] Hospitaltart: 09-05-5819Pbmwtljrv for preprocedural laboratory examinationDR CLARK BOLAÑOS .[facility] Start: 07-11-2022 End: 70-11-4992myqkhmnvezXM DAVID NEWBERRYFacility:M4Qfbtq: 07-11-2022 End: 55-38-4024Lepvychcf for preprocedural laboratory examinationDR DAVID E BRAUNFacility:H4Yytfn: 06-02-2022 End: 10-76-1150epitlegswdAJ DAVID E BRAUNFacility:B7Ohyir: 05-19-2022 End: 07-84-8696afeoelndskHX DAVID E BRAUNFacility:X7Mliwv: 05-19-2022 End: 61-43-1814Oqvlpbt encounter procedurePajayjay BOLAÑOS [facility] start: 05-16-2022 End: 44-45-5436qjwdzyzbccZdjaym Newberry Other [employer] Other Start: 61-09-9136Dwfibkdgs encounterMarcia RohithMOUNTAIN VISTA [facility]ICAL [facility] Ministerio [facility] ClinicStart: 05-09-2022 End: 01-51-1516nyisgwaezzOpxkzx Newberry Other [employer] Other Start: 37-56-7061Gxvurqd evaluation of patient and reportMarcia [facility] ClinicStart: 04-25-2022 End: 91-51-3638paszlfsgfbXylmdo Newberry Other [employer] Other Start: 47-59-1187Iussbhaoo encounterMarcia [facility] ClinicStart: 30-31-3082kitwjgfjwuNA DAVID Fisher BRAUNFacility:U5Jjrvc: 04-12-2022 End: 92-95-4428ozfnpjbwluDG DAVID Fisher BRAUNFacility:Q3Rbbtt: 04-11-2022 End: 96-84-2860mqyydhhuqzYM DAVID [employer] Other Start: 57-97-0670Jfjixfaen encounterMarcia RohithKassi Mandel Medical ClinicStart: 79-04-2382Thbgwn outpatient visit 15 minutesMarcia [facility] ClinicStart: 04-10-2022 End: 74-40-2153eeeqdrjifrLS AMBIKA AlexandreFormerly [facility] [employer] Other Start: 90-26-0036Snury health examinationDavid Rohith Other [facility]Select [facility] [employer] Other Start: 12-24-2021 End: 05-03-3342uebyrdllzoATYENIB ALGHOTHANIFacility:J9Gmjhb: 25-30-1504Nfqhhtnyy for general adult medical examination without abnormal findingsDR DAVID NEWBERRYThe [facility] Hospital HospitalStart: 11-23-2021 End: 79-74-1226eloghzyhhaUE MARCIA E BRAUNFacility:M9Dfnxh: 11-23-2021 End: 10-84-0219Ibtpmmmnd for general adult medical examination without abnormal findingsDR DAVID NEWBERRYFacility:H1 Procedures DateProcedureProcedure DetailPerforming ClinicianStart: 81-73-3795Z-ray of right ankleDavid Newberry MD Work Phone: Start: 03-66-7979Qgtzpudi totalComment on above:Please Note: The reference interval and flagging for this test is for an AM collection. If this is a PM collection please use: Cortisol PM: 2.3- 11.9Performed at: [facility] [address] [id number] Director: Chris Urban PhD, Phone: [phone]: 02-27-2023 Cardiovascular function eval w/tilt table w/mntrDanny Ashley NAVAL ARCHITECT SPECIALIST - COMMUNICATIONS PROFESSIONAL Work Phone: Start: 44-73-7829Addzi hysterectomy via vaginal approach Davidlazaro Newberry Work Phone: Start: 73-17-7800Kwjpmezisku observation [Identifier] in Cervix by Cyto Miguel Angel Garcia DO Work Phone: start: 92-07-3150Hhcfvrlskmess cystoscopyPajayjay BOLAÑOS Start: 00-72-3789Mvqzrroglvabi and adenoidectomyPatrick MIKY H/O: hysterectomyS/P laparoscopic hysterectomyMD David Newberry Work Phone: Comment on above:Problem List clean-up per request of Phys. EHR CmteLaparoscopic-assisted vaginal hysterectomyPajayjay BOLAÑOS Sleep apnea (finding)Clark BOLAÑOS Plan of Treatment DateCare ActivityDetailAuthorStart: 33-08-0606WHvQ/Tdap/Td vaccine (2 - Td or Tdap)DTaP/Tdap/Td vaccine (2 - Td or Tdap)[facility] HEALTHStart: 11-84-8782Sjaxzxxif for malignant neoplasm of cervixNOMS HealthcareStart: 56-88-6127Oportdhsd for malignant neoplasm of cervixPap SmearNOMS Healthcare Start: 01-31-2025 End: 29-82-0766Hpokjrk encounter ughyruemf22/18/2025 8:20 AM EST [facility] [address] [address] Joanna Potter NP [address] [place] [address] [facility] ROUTEStart: 11-25-2024 End: 84-48-5549Iavnmhu encounter procedureNOMS SWS OBComment on above:Encounter for gynecological examination without abnormal finding; Encounter for screening for malignant neoplasm of vaginaStart: 11-18-2024 Bacteria identified in Urine by CultureUrine [facility] Centertart: 37-82-4710Jzmhw [facility] Hospitaltart: 58-38-8821Mvbojwngl vaccinationInfluenza Vaccine (#1)[facility] HealthcareStart: 02-08-2024 End: 20-59-9233Tgfmjoi encounter rnaosoqej92/25/2024 8:20 AM EST Office Visit NOM [address] [place] [address] Joanna Potter NP [address] [place] [address] [facility] ROUTEStart: 11-18-2023 End: 48-26-1016Zplwyeq encounter fodxnowpy87/04/2024 1:15 PM EDT [facility] [address] [place] [phone] Dasha Garcia, DO [address] [place] [address] Encounter for gynecological examination without abnormal finding; Encounter for screening for malignant neoplasm of vaginaNOMS [facility] Comment on above:Encounter for gynecological examination without abnormal finding; Encounter for screening for malignant neoplasm of vaginaStart: 11-15-2023 Influenza vaccinationInfluenza Vaccine (#1)[facility]Start: 01-20-2023 Bacteria identified in Urine by CultureUrine CultureSelect Medical Cleveland Clinic Rehabilitation Hospital, Beachwoodtart: 42-18-0098DutguousqSelect Medical [facility] Hospital, Beachwoodtart: 12-29-2022 Hospital admissionSelect Medical Cleveland Clinic Rehabilitation Hospital, Beachwoodtart: 94-65-6181KUMJG-19 Vaccine ( season)COVID-19 Vaccine ( season)[facility]ITALStart: 31-31-3310Pmqlliiet vaccinationFlu vaccine (#1)[facility]ITALStart: 92-96-3272Hotcruwyo for malignant neoplasm of cervixINOVA LOUDOUN HOSPITALStart: 71-39-7000Wvmabjqeh for malignant neoplasm of cervix Pap smearINOVA LOUDOUN HOSPITALStart: 12-62-7413Ejjdahlka C screeningHepatitis C screenBON PROMEDICA FLOWER HOSPITALStart: 68-06-7823KBV screeningHIV [facility] HealthStart: 01-41-3767Rqxemyodoy ScreenDepression ScreenINOVA LOUDOUN HOSPITALStart: 47-27-3104Pvdvuszcl vaccine (1 of 2 - 2-dose childhood series)Varicella vaccine (1 of 2 - 2-dose childhood series)[facility]ITALStart: 94-69-3335Xwektjwys B vaccine (1 of 3 - 3-dose series) Hepatitis B vaccine (1 of 3 - 3-dose series)[facility] HOSPITALComplement C3 [Mass/volume] in Serum or PlasmaKeenan Private HospitalComplement C4 [Mass/volume] in Serum or [facility]ency Hospital ToledoIGP, RFX APTIMA HPV ASCUIGP, RFX APTIMA HPV ASCU Lab Routine Encounter for screening for malignant neoplasm of vagina Ordered: 11/25/2024[facility] [employer] Work Phone: comment on above:Ordered: 11/25/2024Patient referral [facility] Work Phone: SENDOUT TEST MISCELLANEOUS LABCORPSENDOUT TEST MISCELLANEOUS [facility] Lab Routine Encounter for screening for malignant neoplasm of vagina Ordered: 11/18/2023NOWY [employer] Work Phone: comment on above:Ordered: 11/18/2023 End: 34-56-1953Evmf tableTilt table CV Cardiac Diagnostics Routine Postural dizziness with near syncope 1 Occurrences starting 02/27/2023 until 02/27/2023 [facility] Work Phone: Comment on above:1 Occurrences starting 02/27/2023 until 02/27/2023XR Ankle - right GE 3 [facility] Immunizations Immunization DateImmunizationNotesCare WqqpljtyRxwmjzsf84-24-3362FXHL-GcY-0 (COVID-19) mRNA-1273 vaccineStudioNow [facility]01-13-2021SARS-CoV-2 (COVID-19) mRNA-1273 vaccineStudioNow [facility]03-24-2020tetanus toxoid, reduced diphtheria toxoid, and acellular pertussis vaccine, adsorbedPaPredictvia [facility]04-18-2019hepatitis B vaccine, adult dosageStudioNow [facility]03-08-2019hepatitis B vaccine, adult dosageStudioNow [facility] Payers DatePayer CategoryPayerPolicy [id number] Care HMO (unspecified) [id number] 2.16.840.1.016190.3.57[id number] 2.16.840.1.741143.3.57[id number] 2.16.840.1.251129.3.57[id number] 2.16840.1.158534.3.579.[id number] 2.16840.1.202461.3.57[id number] 2.16.840.1.412938.3.57[id number] 2.16.840.1.196160.3.57[id number] 2.16.840.1.494220.3.57[id number] 2.16.840.1.910758.3.579.[id number] 2.16.840.1.671417.3.57[id number] 2.16.840.1.659926.3.579.2.94704-73-6129Uammjls1907537 2.16.840.1.660678.3.57[id number] 2.16.840.1.049561.3.57[id number] 2.0.1.697848.3.57[id number] 2.840.1.448948.3.57[id number] 2.0.1.388750.3.57[id number] 2.0.1.479478.3.57[id number] 2..1.254896.3.57[id number] 2..1.691058.3.579.2.[id number] 2..1.042987.3.57[id number] 2..1.264805.3.57[id number] 2..1.273275.3.57[id number] 2..1.145960.3.57[id number] 2.0.1.070839.3.579.2.980418-39-6833Djuudkk Health [id number] 24-92-7311Nzpa-payPrivate Health [id number] 2.840.1.188046.19 [id number] 2.840.1.1[id number] 2.0.1.576115.3.579.2.531 Social History DateTypeDetailFacilityUnknown if ever smokedNorth [employer] Other Start: 08-24-2023 End: 08-24-2366Elx Assigned At [facility] Hospitaltart: 05-19-2022 End: 52-31-6490Ojwpenf smoking statusNever smoked tobacco (finding)[facility] CenterTocc smoking statusNever [facility] Hospitaltart: 16-75-7627Dpo Assigned At [facility] HospitalTobacco smoking status NHISTobacco smoking consumption [facility] HospitalStart: 1990 Sex Assigned At BirthNot on [facility] AlleghanyStart: 66-70-7151Eahzhpe use and exposureSmokeless tobacco non-userNOMS HealthcareStart: 02-08-2024 End: 88-61-5356Vuefaqgob beverage intakeEx-drinker (finding)[facility] Start: 08-24-2023 End: 16-09-6456Ltqpcgy of Social functionNOMS HealthcareStart: 08-04-2022 Rmdwlvava75VMWW HealthcareStart: 48-10-1654Rfnavkj CommentCaffeine intake: none [facility] HealthcareStart: 13-76-7794Fetrca identityIdentifies as female gender (finding)NOM HealthcareStart: 08-08-2024 End: 07-91-8252ZcrAripre (finding)[facility] Goals DatePatient GoalDesired Activity/State Functional Status WwwnSvcycxxgtiCxprdtIulicpjc55-68-9886Zrgmdqiqgd StatusN/AExec[facility]11-15-2024Functional StatusN/A[facility]11-10-2023Functional StatusN/A [facility]03-06-2023Functional StatusN/A[facility] Clinical Notes 04-10-2022 to 11-25-2024 Note Date & VuptHottBajugpis76-48-5937 History of Present illness Narrative* Dasha Garcia, DO - 11/25/2024 11:30 AM EDT Images from the original note were not included. Dasha Garcia D.O. Obstetrics and Gynecology Patient: Morgan Kirkland : 1990 (33 y.o.) Yearly Wellness Exam Date: 11/25/2024 Reason for Visit - Chief Complaint Patient presents with Gynecologic Exam Denies concerns. Denies bowel/bladder/breast concerns. Denies vaginal bleeding/spotting. Visit Vitals BP 118/78 Wt 289 lb BMI 43.94 kg/m Smoking Status Never BSA 2.51 m Allergies Allergen Reactions Other Unknown Stimulants Iodine Rash and Unknown Penicillin G Rash and Other Povidone Iodine Rash Povidone-Iodine Rash History of Present Illness, Associated Treatments and Results - OB History Para Term AB Living 2 2 2 0 0 2 SAB IAB Ectopic Multiple Live Births 0 0 0 0 0 # Outcome Date GA Lbr Jacek/2nd Weight Sex Type Anes PTL Lv 2 Term 1 Term Obstetric Comments Pap smear 11/18/23 wnl Review of Systems - General: Chills denies. Allergy/Immunology: Rash Denies. ENT: Denies Difficulty swallowing. Endocrine: Denies Cold intolerance denies. Heat intolerance denied. Respiratory: Denies Chest pain denies. Shortness of breath denies. Breast: Denies Bloody nipple discharge denies. Breast lump denies. Cardiovascular: Denies Chest pain. Gastrointestinal: Abdominal pain denies. Blood in stool denies. Hematology: Easy bruising denies. Prolonged bleeding denies. Women Only: Breast lump denies. Vaginal bleeding between periods is denied. Vaginal discharge/itching denied. Genitourinary: Blood in urine denies. Painful urination denies. Incontinence denies. Skin: Hair changes. Neurologic: Seizures denied. Stroke denies. Psychiatric: Anxiety denies. Depressed mood denies. Medication Documentation Review Audit Reviewed by Jihan Gomez MA (Hot Patcher) on 11/25/24 at 1127 Medication Order Taking? Sig Documenting Provider Last Dose Status Patient not taking: Discontinued 11/25/24 1126 hydroCHLOROthiazide (Microzide) 12.5 MG capsule [id number] Yes Take 12.5 mg by mouth in the morning. Dashahomer Garcia, DO Active metoprolol tartrate (Lopressor) 75 MG tablet [id number] every 12 (twelve) hours. Historical Provider, Active Past Medical History: Diagnosis Date Anxiety Autoimmune disorder (HCC) GERD (gastroesophageal reflux disease) H/O Sjogren's disease (HCC) Hypertension Kidney stones MRSA infection KRISTA (obstructive sleep apnea) ([facility]) 10/22/2016 SS-B antibody positive Tachycardia Tonsillitis Varicella zoster Past Surgical History: Procedure Laterality Date HYSTERECTOMY 12/29/2022 TLH/BS KIDNEY STONE SURGERY 07/17/2022 TONSILLECTOMY 2013 VAGINAL DELIVERY 2017 VAGINAL DELIVERY 06/06/2019 Family History Problem Relation Name Age of Onset Hypertension Mother Other (Other) Mother Varicose veins Heart disease Father Heart disease Brother Hypertension Brother Other (Other) Brother blood clot-leg Diabetes Maternal Grandmother Prostate cancer Maternal Grandfather Heart disease Paternal Grandmother Heart disease Paternal Grandfather Diabetes Paternal Grandfather Diabetes Father's Sister Heart disease Father's Sister Diabetes Father's Brother Physical Exam - General appearance, mentation, extraocular movements, facial strength and movement, hearing, upper and lower extremity strength and tone, sensation to gross testing, coordination, and gait are normalor at baseline unless noted below. General Examination: GENERAL APPEARANCE: alert oriented well developed, well nourished. HEAD: normocephalic atraumatic. EYES: sclera anicteric. EARS: no obvious hearing deficit. SKIN: warm and dry. HEART: regular rate and rhythm. LUNGS: clear to auscultation bilaterally. CHEST: axillary nodes grossly normal. BREASTS: no masses palpable bilaterally, normal nipples bilaterally. ABDOMEN: soft, nontender, nondistended, no masses palpable. BACK: no costovertebral angle tenderness, no obvious scoliosis/kyphosis. FEMALE GENITOURINARY: normal vaginal mucosa, cervix/uterus surgically absent, ovaries nonpalpable and nontender. EXTREMITIES: no edema. NEUROLOGIC: alert and oriented. PSYCH: cooperative with exam. Diagnoses and all orders for this visit: Encounter for gynecological examination without abnormal finding Encounter for screening for malignant neoplasm of vagina - IGP, RFX APTIMA HPV ASCU Pap, pelvic and breast exam completed. Findings of today's exam discussed with the patient. Continue MSBE. Ca/Vit D recommendations reviewed with the patient. The patient is to contact the office with any changes to her gynecological condition. The patient is to return in 1 year or as needed ICD-10-CM 1. Encounter for gynecological examination without abnormal finding Z01.419 2. Encounter for screening for malignant neoplasm of vagina Z12.72 IGP, RFX APTIMA HPV ASCU documented in this encounterResearch Medical [id number] Evaluation note* Diagnosis Onset Date Resolution Status Admit Date ADHD, predominantly inattentive type acuteJune 2024 9:39amRight ankle painacuteJune 2024 9:39amRight ankle sprainacuteJune 2024 9:39am [facility] Work Phone: 1(400) 284-861406-13-2025 Evaluation note* Diagnosis Onset Date Resolution Status Admit Date ADHD, predominantly inattentive type acuteJune 2024 9:39amRight ankle painacuteJune 2024 9:39amRight ankle sprainacuteJune 2024 9:39amUTI (urinary tract infection)acute November 18, 2024 10:03am [facility] Work Phone: 1(769) 473-633405-26-2025 Evaluation note* Diagnosis Onset Date Resolution Status Admit Date Right ankle sprain acuteMay 2024 11:04am [facility] Work Phone: 1(445) 146-774205-07-2025 NotePatient is here today for a 5 month [...] makes her gasp. Patient denies leg swelling, dizziness, Review of Systems Cardiovascular: Positive for chest pain and palpitations. Respiratory: Positive for shortness of breath (with palpitations).[facility]05-07-2025 NoteCardiovascular Medicine [facility] SUBJECTIVE Chief Complaint Patient presents with Palpitations Morgan Kirkland is a 33 y.o. female here for follow-up on her palpitations. HPI PMHx: palpitations s/p LOOP implant 08/21/2022, atrial tachycardia, HTN 07/20/2024 Patient is here today for a [...] had a tilt table study done at [facility]. this that was a negative study based [...] is not on any medication for Sjogren's di (more content not included)...[facility]02-21-2025 Hospital Discharge instructions Patient Education 05/06/2024 09:27:55 Dietary Guidelines to Help Prevent Kidney Stones Dietary Guidelines to Help Prevent Kidney Stones Kidney stones are deposits of minerals and salts that form inside your kidneys. Your risk of developing kidney stones may be greater depending on your diet, your lifestyle, the medicines you take, and whether you have certain medical conditions. Most people can lower their risks of developing kidney stones by following these dietary guidelines. Your dietitian may give you more specific instructions depending on your overall health and the type of kidney stones you tend to develop. What are tips for following this plan? Reading food labels Choose foods with no salt added or low-salt labels. Limit your salt (sodium) intake to less than 1,500 mg a day. Choose foods with calcium for each meal and snack. Try to eat about 300 mg of calcium at each meal.Foods that contain 200 500 mg of calcium a serving include: ?8 oz (237 mL) of milk, yfompqm-qfrwxnusfuby-meywl milk, and calcium- fortifiedfruit juice. Calcium-fortified means that calcium has been added to these drinks. ?8 oz (237 mL) of kefir, yogurt, and soy yogurt. ?4 oz (114 g) of tofu. ?1 oz (28 g) of cheese. ?1 cup (150 g) of dried figs. ?1 cup (91 g) of cooked broccoli. ?One 3 oz (85 g) can of sardines or mackerel. Most people need 1,000 1,500 mg of calcium a day. Talk to your dietitian about how much calcium is recommended for you. Shopping Buy plenty of fresh fruits and vegetables. Most people do not need to avoid fruits and vegetables, even if these foods contain nutrients that may contribute to kidney stones. When shopping for convenience foods, choose: ?Whole pieces of fruit. ?Pre-made salads with dressing on the side. ?Low-fat fruit and yogurt smoothies. Avoid buying frozen meals or prepared deli foods. These can be high in sodium. Look for foods with live cultures, such as yogurt and kefir. Choose high-fiber grains, such as whole-wheat breads, oat bran, and wheat cereals. Cooking Do not add salt to food when cooking. Place a salt shaker on the table and allow each person to addtheir own salt to taste. Use vegetable protein, such as beans, textured vegetable protein (TVP), or tofu, instead of meat inpasta, casseroles, and soups. Meal planning Eat less salt, if told by your dietitian. To do this: ?Avoid eating processed or pre-made food. ?Avoid eating fast food. Eat less [...] fish, or seafood. ?When you prepare animal proteins, cut pieces into small portion sizes. For most meat and fish, oneserving is about the size of the palm of your hand. Eat at least five servings of fresh fruits and vegetables each day. To do this: ?Keep fruits and vegetables on hand for snacks. ?Eat one piece of fruit or a handful of berries with breakfast. ?Have a salad and fruit at lunch. ?Have two kinds of vegetables at dinner. You may be told to limit foods that are high in a substance called oxalate. These include: ?Spinach (cooked), rhubarb, beets, sweet potatoes, and Mosotho chard. ?Peanuts. ?Potato chips, citizen of [place] fries, and baked potatoes with skin on. ?Nuts and nut products. ?Chocolate. If you regularly take a diuretic medicine, make sure to eat at least 1 or 2 servings of fruits or vegetables that are high in potassium each day. These include: ?Avocado. ?Banana. ?Apex, prune, carrot, or tomato juice. ?Baked potato. ?Cabbage. ?Beans and split peas. Lifestyle Drink enough fluid to keep your urine pale yellow. This is the most important thing you can do. Spread your fluid intake throughout the day. If you drink alcohol: ?Limit how much you have to: ?0 1 drink a day for women who are not . ?0 2 drinks a day for men. ?Know how much alcohol is in your drink. In the [place] one drink equals one 12 oz bottle of beer (355 mL), one 5 oz glass of wine (148 mL), or one 1 oz glass of hard liquor (44 mL). Lose weight if told by your health care provider. Work with your dietitian to find an eating plan and weight loss strategies that work best for you. General information Talk to your health care provider and dietitian about taking daily supplements. Depending on your health and the cause of your kidney stones, you may be told: ?Do not take high-dose supplements of vitamin C (1,000 mg a day or more). ?To take a calcium supplement. ?To take a daily probiotic supplement. ?To take other supplements such as magnesium, fish oil, or vitamin B6. Take hhii-qgi-hzcodei and prescription medicines only as told by your health care provider. These include supplements. What foods should I limit? Limit your intake of the following foods, or eat them as told by your dietitian. Vegetables Spinach. Rhubarb. Beets. Canned vegetables. Pickles. Olives. Baked potatoes with skin. Grains Wheat bran. Baked goods. Salted crackers. Cereals high in sugar. Meats and other proteins Nuts. Nut butters. Large portions of meat, poultry, or fish. Salted, precooked, or cured meats, such as sausages, meat loaves, and hot dogs. Dairy Cheeses. Beverages Regular soft drinks. Regular vegetable juice. Seasonings and condiments Seasoning blends with salt. Salad dressings. Soy sauce. Ketchup. Barbecue sauce. Other foods Canned soups. Canned pasta sauce. Casseroles. Pizza. Lasagna. Frozen meals. Potato chips. [place] fries. The items listed above may not be a complete list of foods and beverages you should limit. Contact a dietitian for more information. What foods should I avoid? Talk to your dietitian about specific foods you should avoid based on the type of kidney stones youhave and your overall health. Fruits Grapefruit. The item listed above may not be a complete list of foods and beverages you should avoid. Contact adietitian for more information. Summary Kidney stones are deposits of minerals and salts that form inside your kidneys. You can lower your risk of kidney stones by making changes to your diet. The most important thing you can do is drink enough fluid. Drink enough fluid to keep your urine pale yellow. Talk to your dietitian about how much calcium you should have each day, and eat less salt and animal protein as told by your dietitian. This information is not intended to replace advice given to you by your health care provider. Make sure you discuss any questions you have with your health care provider. Document Revised: 06/12/2022 Document Reviewed: 06/12/2022 [employer] Patient Education 2023 [employer]. Follow Up Care 01/29/2024 09:22:13 With:MIKY SAMPSON, Clark Roldan, URL Address: [address] [place] [address]- When: Unknown [facility] 02-21-2025 NotePatient Education Nephrology Dietary Guidelines to Help Prevent Kidney Stones Kidney stones are deposits of minerals and salts that form inside your kidneys. Your risk of developing kidney stones may be greater depending on your diet, your lifestyle, the medicines you take, and whether you have certain medical conditions. Most people can lower their risks of developing kidney stones by following these dietary guidelines. Your dietitian may give you more specific instructions depending on your overall health and the type of kidney stones you tend to develop. What are tips for following this plan? Reading food labels ??? Choose foods with no salt added or low-salt labels. Limit your salt (sodium) intake to lessthan 1,500 mg a day. ??? Choose foods with calcium for each meal and snack. Try to eat about 300 mg of calcium at each meal. Foods that contain 200?500 mg of calcium a serving include: ? 8 oz (237 mL) of milk, lcplyfy-qyyopiecumwl-mdebz milk, and calcium- fortifiedfruit juice. Calcium-fortified means that calcium has been added to these drinks. ? 8 oz (237 mL) of kefir, yogurt, and soy yogurt. ? 4 oz (114 g) of tofu. ? 1 oz (28 g) of cheese. ? 1 cup (150 g) of dried figs. ? 1 cup (91 g) of cooked broccoli. ? One 3 oz (85 g) can of sardines or mackerel. Most people need 1,000?1,500 mg of calcium a day. Talk to your dietitian about how much calcium is recommended for you. Shopping ??? Buy plenty of fresh fruits and vegetables. Most people do not need to avoid fruits and vegetables, even if these foods contain nutrients that may contribute to kidney stones. ??? When shopping for convenience foods, choose: ? Whole pieces of fruit. ? Pre-made salads with dressing on the side. ? Low-fat fruit and yogurt smoothies. ??? Avoid buying frozen meals or prepared deli foods. These can be high in sodium. ??? Look for foods with live cultures, such as yogurt and kefir. ??? Choose high-fiber grains, such as whole-wheat breads, oat bran, and wheat cereals. Cooking ??? Do not add salt to food when cooking. Place a salt shaker on the table and allow each person toadd their own salt to taste. ??? Use vegetable protein, such as beans, textured vegetable protein (TVP), or tofu, instead of meat in pasta, casseroles, and soups. Meal planning ??? Eat less salt, if told by your dietitian. To do this: ? Avoid eating processed or pre-made food. ? Avoid eating fast food. ??? Eat less animal protein, including cheese, meat, poultry, or fish, if told by your dietitian. To do this: ? Limit the number of times you have meat, poultry, fish, or cheese each week. Eat a diet free of meat at least 2 days a week. ? Eat only one serving each day of meat, poultry, fish, or seafood. ? When you prepare animal proteins, cut pieces into small portion sizes. For most meat and fish, one serving is about the size of the palm of your hand. ??? Eat at least five servings of fresh fruits and vegetables each day. To do this: ? Keep fruits and vegetables on hand for snacks. ? Eat one piece of fruit or a handful of berries with breakfast. ? Have a salad and fruit at lunch. ? Have two kinds of vegetables at dinner. ??? You may be told to limit foods that are high in a substance called oxalate. These include: ? Spinach (cooked), rhubarb, beets, sweet potatoes, and [place] chard. ? Peanuts. ? Potato chips, citizen of [place] fries, and baked potatoes with skin on. ? Nuts and nut products. ? Chocolate. ??? If you regularly take a diuretic medicine, make sure to eat at least 1 or 2 servings of fruits or vegetables that are high in potassium each day. These include: ? Avocado. ? Banana. ? Apex, prune, carrot, or tomato juice. ? Baked potato. ? Cabbage. ? Beans and split peas. Lifestyle ??? Drink enough fluid to keep your urine pale yellow. This is the most important thing you can do.Spread your fluid intake throughout the day. ??? If you drink alcohol: ? Limit how much you have to: ? 0?1 drink a day for women who are not . ? 0?2 drinks a day for men. ? Know how much alcohol is in your drink. In the [place] one drink equals one 12 oz bottle of beer (355 mL), one 5 oz glass of wine (148 mL), or one 1? oz glass of hard liquor (44 mL). ??? Lose weight if told by your health care provider. Work with your dietitian to find an eating plan and weight loss strategies that work best for you. General information ??? Talk to your health care provider and dietitian about taking daily supplements. Depending on your health and the cause of your kidney stones, you may be told: ? Do not take high-dose supplements of vitamin C (1,000 mg a day or more). ? To take a calcium supplement. ? To take a daily probiotic supplement. ? To take other supplements such as magnesium, fish oil, or vitamin B6. ??? Take vxls-mbg-znjrsxo and prescription medicines only as told by your health (more content not included)...[facility]12-03-2024 Note Cardiovascular Medicine [facility] SUBJECTIVE Morgan Kirkland is a 33 [...] dyspnea. Overall, she is doing very well. 03/03/23 Patient has felt better since starting [...] had a tilt table study done at [facility]. this that was a negative study based [...] extremity edema Obstructive sleep (more content not included)...[facility]09-04-2024 History of Present illness Narrative* Dasha Garcia DO - 11/18/2023 1:15 PM EDT Images from the original note were not included. Dasha Garcia D.O. Obstetrics and Gynecology Patient: Morgan Kirkland : 1990 (32 y.o.) Yearly Wellness Exam Date: 11/18/2023 Reason for Visit - Chief Complaint Patient presents with Gynecologic Exam Denies concerns, Denies bowel/bladder/breast concerns. Denies vaginal bleeding/spotting. Visit Vitals BP 124/80 Ht 5' 8 Wt 288 lb BMI 43.79 kg/m Smoking Status Never BSA 2.51 m Allergies Allergen Reactions Other Unknown Stimulants Penicillin G Rash and Other Povidone Iodine Rash Povidone-Iodine Rash History of Present Illness, Associated Treatments and Results - OB History Para Term AB Living 2 2 2 0 0 2 SAB IAB Ectopic Multiple Live Births 0 0 0 0 0 # Outcome Date GA Lbr Jacek/2nd Weight Sex Type Anes PTL Lv 2 Term 1 Term Obstetric Comments Pap smear 10/17/22 wnl Review of Systems - General: Chills denies. Allergy/Immunology: Rash Denies. ENT: Denies Difficulty swallowing. Endocrine: Denies Cold intolerance denies. Heat intolerance denied. Respiratory: Denies Chest pain denies. Shortness of breath denies. Breast: Denies Bloody nipple discharge denies. Breast lump denies. Cardiovascular: Denies Chest pain. Gastrointestinal: Abdominal pain denies. Blood in stool denies. Hematology: Easy bruising denies. Prolonged bleeding denies. Women Only: Breast lump denies. Vaginal bleeding between periods is denied. Vaginal discharge/itching denied. Genitourinary: Blood in urine denies. Painful urination denies. Incontinence denies. Skin: Hair changes. Neurologic: Seizures denied. Stroke denies. Psychiatric: Anxiety denies. Depressed mood denies. Medication Documentation Review Audit Reviewed by Jihan Gomez MA (Hot Patcher) on 11/18/23 at 1310 Medication Order Taking? Sig Documenting Provider Last Dose Status metoprolol tartrate (Lopressor) 75 MG tablet [id number] No every 12 (twelve) hours. Historical Provider, Taking Active Past Medical History: Diagnosis Date Anxiety Autoimmune disorder (CMS/HCC) GERD (gastroesophageal reflux disease) H/O Sjogren's disease (HCC) (CMS/HCC) Hypertension (CMS/HCC) Kidney stones MRSA infection KRISTA (obstructive sleep apnea) 10/22/2016 SS-B antibody positive Tachycardia Tonsillitis Varicella zoster Past Surgical History: Procedure Laterality Date HYSTERECTOMY 12/29/2022 TLH/BS KIDNEY STONE SURGERY 07/17/2022 TONSILLECTOMY 2013 VAGINAL DELIVERY 2017 VAGINAL DELIVERY 06/06/2019 Family History Problem Relation Name Age of Onset Hypertension Mother Other (Other) Mother Varicose veins Heart disease Father Heart disease Brother Hypertension Brother Other (Other) Brother blood clot-leg Diabetes Maternal Grandmother Prostate cancer Maternal Grandfather Heart disease Paternal Grandmother Heart disease Paternal Grandfather Diabetes Paternal Grandfather Diabetes Father's Sister Heart disease Father's Sister Diabetes Father's Brother Physical Exam - General appearance, mentation, extraocular movements, facial strength and movement, hearing, upper and lower extremity strength and tone, sensation to gross testing, coordination, and gait are normalor at baseline unless noted below. General Examination: GENERAL APPEARANCE: alert oriented well developed, well nourished. HEAD: normocephalic atraumatic. EYES: sclera anicteric. EARS: no obvious hearing deficit. SKIN: warm and dry. HEART: regular rate and rhythm. LUNGS: clear to auscultation bilaterally. CHEST: axillary nodes grossly normal. BREASTS: no masses palpable bilaterally, normal nipples bilaterally. ABDOMEN: soft, nontender, nondistended, no masses palpable. BACK: no costovertebral angle tenderness, no obvious scoliosis/kyphosis. FEMALE GENITOURINARY: skin split with inflammation right labia, normal vaginal mucosa, yeast discharge in vaginal vault, cervix/uterus surgically absent, adnexa WNL EXTREMITIES: no edema. NEUROLOGIC: alert and oriented. PSYCH: cooperative with exam. Diagnoses and all orders for this visit: Encounter for gynecological examination without abnormal finding Encounter for screening for malignant neoplasm of vagina - SENDOUT TEST MISCELLANEOUS [facility] Yeast infection - fluconazole (Diflucan) 150 MG tablet; One tablet every 3 days for 3 doses Pap, pelvic and breast exam completed. Findings of today's exam discussed with the patient. Continue MSBE. Ca/Vit D recommendations reviewed with the patient. The patient is to contact the office with any changes to her gynecological condition. The patient is to return in 1 year or as needed ICD-10-CM 1. Encounter for gynecological examination without abnormal finding Z01.419 2. Encounter for screening for malignant neoplasm of vagina Z12.72 SENDOUT TEST MISCELLANEOUS [facility] 3. Yeast infection B37.9 fluconazole (Diflucan) 150 MG tablet documented in this encounterResearch Medical [id number] Evaluation note* Encounter Date Diagnosis Assessment Notes Treatment Notes Treatment Clinical Notes Mar, Paroxysmal SVT (supraventricular tachycardia) (ICD-10 - I47.10) Discussed f/u w cardiology Mar, aytime somnolence (ICD-10 - R40.0)HST order faxed to [facility] sleep lab. Mar,Morbid (severe) obesity due to excess calories (ICD-10 - E66.01)as above Mar,ody mass index [BMI] 40.0-44.9, adult (ICD-10 - Z68.41)as above Mar,Fatigue, unspecified type (ICD-10 - R53.83)as above [facility] Other [id number] History of Present illness Narrative* May Crandall RN - 02/27/2023 2:30 PM EST Instructed on objectives and procedure of a tilt study [facility] Discharge instructions Follow Up Care 01/23/2023 09:42:55 With:Mary BOLAÑOS MDrick R, URL Address: [facility] [address], [place] [address]- When:Within 3 Month(s) Comments:w/Met W/syed [facility] 11-10-2023 Hospital Discharge instructions Patient Education 01/23/2023 09:39:05 Urinary Tract Infection, Adult, Ntjw-ce-Yhuw Urinary Tract Infection, Adult A urinary tract [...] Follow these instructions at home: Medicines Take yhbi-mbv-niioqmk and prescription medicines only as told by [...] provider. Document Revised: 10/12/2020 Document Reviewed: 10/12/2020 [employer] Patient Education 2022 [employer]. Follow Up Care 07/18/2022 12:23:23 With:MIKY SAMPSON, Clark Roldan, URL Address: [facility] [address] , [place] [address]- [phone] When: Unknown Comments:1 yr w/ REYNA [facility] 10-01-2023 History general Narrative - Reported* Type Description Date Medical History tachycardia Medical HistoryanxietyMedical Historysjogren syndromeSurgical History tonsillectomy and adenoidectomySurgical OdffcnjPchsuyhfdhnj30/2023Surgical HistoryLoop monitor08/2022 [facility] Other 03-06-2023 Hospital Discharge instructions Patient Education [...] ?Rhubarb. ?Beets. ?Potato chips and citizen of [place] fries. ?Nuts. If you regularly take a diuretic medicine, make sure to eat at least 1 2 fruits or vegetables high in potassium each day. These include: ?Avocado. ?Banana. ?Apex, prune, carrot, or tomato juice. ?Baked potato. [...] Casseroles. Pizza. Lasagna. Frozen meals. Potato chips. Namibian fries. Summary You can reduce your risk [...] 06/27/2011 Document Revised: 06/22/2019 Document Reviewed: 02/10/2017 ElseP2i Patient Education 2020 [employer]. Follow Up Care 05/16/2022 10:14:36 With:MIKY SAMPSON, Clark Roldan, URL Address: [facility] [address] [place] [address]- When: Unknown [facility] 03-03-2023 Evaluation note* Encounter Date Diagnosis Assessment Notes Treatment Notes Treatment Clinical Notes May, Thyroid disease (ICD-10 - E07.9) Formerly [facility] [employer] Other 02-24-2023 Evaluation note* Encounter Date Diagnosis Assessment Notes Treatment Notes Treatment Clinical Notes Apr, Dysuria (ICD-10 - R30.0) Formerly [facility] [employer] Other 01-26-2023 Evaluation note* Encounter Date Diagnosis Assessment Notes Treatment Notes Treatment Clinical Notes Mar, Goiter (ICD-10 - E04.9) Advise she take extra metoprolol as needed to improve heart rate. Discussed possible link between thyroid and elevated heart rate. May require endocrinology referral. Will assess ultrasound first. TSH was checked in October or November 2021 and it was normal at that time. Mar,Tachycardia (ICD-10 - R00.0) Mar,cute non-recurrent maxillary sinusitis (ICD-10 - J01.00) Formerly [facility] [employer] Other chief complaint+Reason for visit Narrative* Chief Complaint Weight Loss Referral Dr. Bernal for VisitAbnormal weight gain Fatigue HTN (hypertension) [facility] Work Phone: chief complaint+Reason for visit Narrative* Chief Complaint Weight Loss Referral Dr. Diana feet , ankle swellingReason for VisitAbnormal weight gain Fatigue HTN (hypertension) Abnormal weight gain Depression Fatigue HTN (hypertension) Obesity, Class III, BMI 40-49.9 (morbid obesity) KRISTA on CPAP [facility] Work Phone: chief complaint+Reason for visit Narrative* Chief Complaint Weight Loss Referral Dr. Diana feet , ankle swellingReason for VisitAbnormal weight gain Fatigue HTN (hypertension) Abnormal weight gain Depression Fatigue HTN (hypertension) Obesity, Class III, BMI 40-49.9 (morbid obesity) KRISTA on CPAP Lower extremity edema Neck pain Abnormal weight gain Depression Fatigue HTN (hypertension) Obesity, Class III, BMI 40-49.9 (morbid obesity) KRISTA on CPAP [facility] Work Phone: Chief complaint+Reason for visit Narrative* Chief Complaint Referral Dr. Rosalba ramos feet , ankle swelling WMN Initial RDReason for VisitAbnormal weight gain Depression Fatigue HTN (hypertension) Obesity, Class III, BMI 40-49.9 (morbid obesity) KRISTA on CPAP Lower extremity edema Neck pain Abnormal weight gain Depression Fatigue HTN (hypertension) Obesity, Class III, BMI 40-49.9 (morbid obesity) KRISTA on CPAP [facility] Work Phone: Evaluation + Plan note No data available for this section [facility] evaluation + Plan note Future Appointments Appointment Date:01/29/2024 08:30:00 AM Scheduled Provider:Clark BOLAÑOS MD Location:[facility] Appointment Type:URO Office Visit [facility] evaluation + Plan note Future Appointments Appointment Date:01/29/2024 08:30:00 AM Scheduled Provider:Clark BOLAÑOS MD Location:[facility] Appointment Type:URO Office Visit Diagnostic Tests Pending * [facility]ments Appointment Date:05/06/2024 08:30:00 AM Scheduled Provider:Clark BOLAÑOS MD Location:[facility] Appointment Type:URO Office Visit [facility] evaluation + Plan note Future Appointments Appointment Date:05/05/2025 08:30:00 AM Scheduled Provider:Clark BOLAÑOS MD Location:[facility] Appointment Type:URO Office Visit Appointment Date:06/02/2025 08:00:00 AM Scheduled Provider: Location:[facility] Appointment Type:URO Nurse Visit Future Scheduled Tests Laboratory* Electrolyte Panel 05/14/24 [facility] evaluation noteNo InformationNort [employer] Other evaluminaj noteNo assessment information available [facility] Work Phone: Evaluation note* Diagnosis Postural dizziness with near syncope documented in this encounter [facility] note* Diagnosis Onset Date Resolution Status Abnormal weight gain acuteFatigueacuteHTN (hypertension)acute [facility] Work Phone: evaluation note* Diagnosis Onset Date Resolution Status Abnormal weight gain acuteFatigueacuteHTN (hypertension)acuteAbnormal weight gainacuteDepressionacute FatigueacuteHTN (hypertension)acuteObesity, Class III, BMI 40-49.9 (morbid obesity)acuteOSA on CPAPacute [facility] Work Phone: Evaluation note* Diagnosis Onset Date Resolution Status Abnormal weight gain acuteFatigueacuteHTN (hypertension)acuteAbnormal weight gainacuteDepressionacute FatigueacuteHTN (hypertension)acuteObesity, Class III, BMI 40-49.9 (morbid obesity)acuteOSA on CPAPacuteLower extremity edemaacuteNeck painacuteAbnormal weight gainacuteDepressionacuteFatigueacuteHTN (hypertension)acuteObesity, Class III, BMI 40-49.9 (morbid obesity)[facility]* Diagnosis Onset Date Resolution Status Abnormal weight gain acuteDepressionacuteFatigueacuteHTN (hypertension)acuteObesity, Class III, BMI 40-49.9 (morbid obesity)acuteOSA on CPAPacuteLower extremity edemaacuteNeck pain acuteAbnormal weight gainacuteDepressionacuteFatigueacuteHTN (hypertension)acute Obesity, Class III, BMI 40-49.9 (morbid obesity)acuteOSA on CPAPacute [facility] Work Phone: Evaluation note* Diagnosis Onset Date Resolution Status Lower extremity edema acuteNeck painacuteAbnormal weight gainacuteDepressionacuteFatigueacuteHTN (hypertension)acuteObesity, Class III, BMI 40-49.9 (morbid obesity)acuteOSA on CPAPacuteAbnormal weight gainacuteDepressionacuteFatigueacuteHTN (hypertension) acuteObesity, Class III, BMI 40-49.9 (morbid obesity)[facility]OS[facility] Work [facility]* Diagnosis KRISTA (obstructive sleep apnea)- Primary Obstructive sleep apnea (adult) (pediatric) Obesity due to excess calories, unspecified obesity severity Hypoxia Hypoxemia Hypersomnia Hypersomnia, unspecified documented in this encounter [facility] HealthcareEvaluation note* Diagnosis Encounter for gynecological examination without abnormal finding- Primary Encounter for screening for malignant neoplasm of vagina Yeast infection documented in this encounter [facility] HealthcareEvaluation note* Diagnosis Encounter for gynecological examination without abnormal finding Encounter for screening for malignant neoplasm of vagina documented in this encounter [facility] HealthcareHistory general Narrative - Reported* Type Description Date Medical History tachycardia Medical HistoryanxietyMedical Historysjogren syndromeSurgical History tonsillectomy and adenoidectomy [facility] Discharge instructions No data available for this section [facility] note No data available for this section [facility] Darcie reason for referral (narrative)No reason for referral information [facility] Work Phone: Summary Purpose Family History No Family History Records Found Relationship Condition Age at Onset Recorded Date/T livia father Heart disease Unknown Not SpecifiedHypertensionUnknowngrandparentMalignant neoplasm of prostateUnknown Diabetes mellitusUnknowngrandparentHeart diseaseUnknownbrotherHypertension Unknown Relationship Condition Age at Onset Recorded Date/T livia father Heart disease Unknown Disorder of hemostasisUnknownNot SpecifiedHypertensionUnknownNot Specified Malignant neoplasm of prostateUnknownNot SpecifiedDiabetes mellitusUnknown brotherHypertensionUnknownHeart diseaseUnknownMyocardial infarctionUnknown Relationship Condition Age at Onset Recorded Date/T livia father Heart disease Unknown Disorder of hemostasisUnknownmotherHypertensionUnknownmaternal grandfather Malignant neoplasm of prostateUnknownmaternal grandmotherDiabetes mellitus UnknownbrotherHypertensionUnknownpaternal grandfatherDiabetes mellitusUnknown Heart diseaseUnknownMyocardial infarctionUnknown Advance Directives No Advanced Directives Records Found [...] feet , ankle swellin g WMN Initial RDReason for VisitLower extremity edema Neck pain Abnormal weight gain Depression Fatigue HTN (hypertension) Obesity, Class III, BMI 40-49.9 (morbid obesity) KRISTA on CPAP Abnormal weight gain Depression Fatigue HTN (hypertension) Obesity, Class III, BMI 40-49.9 (morbid obesity) KRISTA on CPAP Chief Complaint Admit Date right ankle/heel pain August 08, 2024 11: 04am Reason for Visit Admit Date Right ankle sprain August 08, 2024 11:04 am Chief Complaint Admit Date Discuss meds, Recurring right ankle inju ry August 26, 2024 9:39am UA:Burning/Frequency November 18, 2024 10:03am Reason for Visit Admit Date ADHD, predominantly inattentive type Aug 9:39am Right ankle pain August 26, 2024 9:39 am Right ankle sprain August 26, 2024 9:39 am Reason for Visit Admit Date ADHD, predominantly inattentive type Aug 9:39am Right ankle pain August 26, 2024 9:39 am Right ankle sprain August 26, 2024 9:39 am UTI (urinary tract infection) November 18, 2024 10:03am Reason for Referral SpecialtyDiagnoses / ProceduresReferred By ContactReferred To Contact Diagnoses Postural dizziness with near syncope Procedures Tilt table Elana Ramirez, OLIVER - IRAJ [address] [place] [address] Referral IDStatusReasonStart DateExpiration DateVisits RequestedVisits [id number] Additional Source Comments INFORMATION SOURCE (unrecogn ized section and content) DATE CREATED AUTHOR 03/29/2019 [facility] DATE CREATED AUTHOR AUTHOR'S ORGANIZ ATION 07/24/2022 [facility] DATE CREATED AUTHOR AUTHOR'S ORGANIZ ATION 03/02/2023 [facility] DATE CREATED AUTHOR AUTHOR'S ORGANIZ ATION 08/10/2023 [facility] DATE CREATED AUTHOR AUTHOR'S ORGANIZ ATION 01/31/2024 [facility] DATE CREATED AUTHOR AUTHOR'S ORGANIZ ATION 06/04/2024 [facility] DATE CREATED AUTHOR AUTHOR'S ORGANIZ ATION 06/09/2024 [facility] DATE CREATED AUTHOR AUTHOR'S ORGANIZ ATION 11/23/2024 [facility] DATE CREATED AUTHOR AUTHOR'S ORGANIZ ATION 11/27/2024 [facility] DATE CREATED AUTHOR AUTHOR'S ORGANIZ ATION 01/02/2025 [facility] REASON FOR VISIT (unrecogniz ed section and content) SpecialtyDiagnoses / ProceduresReferred By ContactReferred To Contact Diagnoses Postural dizziness with near syncope Procedures Tilt table Elana Ramirez, NAVAL ARCHITECT SPECIALIST - COMMUNICATIONS PROFESSIONAL [address] [facility] [address] [place] [address] Referral IDStatusReasonStart DateExpiration DateVisits RequestedVisits [id number] ApneaReason CommentsGynecologic ExamDenies concerns, Denies bowel/bladder/breast concerns. Denies vaginal bleeding/spotting.ReasonCommentsGynecologic ExamDenies concerns. Denies bowel/bladder/breast concerns. Denies vaginal bleeding/spotting. Patient Care team informatio n (unrecognized section and content) Team Status: Active Member Role Status Dates David Newberry MD Primary Care Provider Active Team Status: Inactive Member Role Status Dates David Newberry MD Primary Care Provider Active Dasha Garcia DOAttending ProviderActive Team Status: Inactive Member Role Status Dates David Newberry MD Primary Care Provider Active Enrique Lucas MDAttending ProviderActiveTeam MemberRelationshipSpecialtyStart DateEnd Date David Newberry MD [address] [place] [phone] PCP - [facility] Xsxceviw17/15/23 Team Status: Inactive Member Role Status Dates [...] Start: September 04, 2023 End: September 04, 2023HeaAmber Max ProviderActiveStart: September 04, 2023 End: September 04, 2023 Team Status: Inactive Member Role Status Dates David Newberry MD Primary Care Provider Active Start: September 28, 2023 End: September 28, 2023Charlene Reeves APRN COMMUNICATIONS PROFESSIONAL-CAttending ProviderActive Start: September 28, 2023 End: September 28, 2023 Team Status: Inactive Member Role Status Dates David Newberry MD Primary Care Provider Active Start: October 19, 2023 End: October 19, 2023HeaAmber Max ProviderActiveStart: October 19, 2023 End: October 19, 2023 Team Status: Inactive Member Role Status Dates David Newberry MD Primary Care Provider Active Start: November 27, 2023 End: November 26[address]y [address] RD LDAttending ProviderActiveStart: November 27, 2023 End: November 27, 2023 Team Status: Inactive Member Role Status Dates David Newberry MD Primary Care Provider Active Start: December 04, 2023 End: December 04, 2023HeaAmber Mxa ProviderActiveStart: December 04, 2023 End: December 04, 2023Team MemberRelationshipSpecialtyStart DateEnd Date David Newberry MD [address] [place] [phone] PCP - GeneralFamily Medicine08/07/22Team MemberRelationshipSpecialtyStart DateEnd Date David Newberry MD [address] [facility] [place] [phone] PCP - [facility]08/07/22Team MemberRelationshipSpecialtyStart DateEnd Date David Newberry MD [address] [facility] [place] [id number] PCP - GeneralFamily Medicine08/07/22Team MemberRelationshipSpecialtyStart DateEnd Date David Newberry MD [address] [facility] [place] [address] [facility]/07/22 Team Status: Inactive Member Role Status Dates David Newberry MD Primary Care Provider Active Start: August 08, 2024 End: August 08, 2024Amber Wade ProviderActiveStart: August 08, 2024 End: August 08, 2024 Team Status: Active Member Role Status Dates David Newberry MD Primary Care Provider Active Start: August 08, 2024 Amber Wade ProviderActiveStart: August 08, 2024 Team Status: Inactive Member Role Status Dates David Newberry MD Primary Care Provider Active Start: August 26, 2024 End: August 26, 2024Yoel Garcia ProviderActiveStart: August 26, 2024 End: August 26, 2024 Team Status: Inactive Member Role Status Dates David Newberry MD Primary Care Provider Active Start: November 18, 2024 End: November 18, 2024Yoel Garcia ProviderActiveStart: November 18, 2024 End: November 18, 2024Team MemberRelationshipSpecialtyStart DateEnd Date David Newberry MD PCP - GeneralFamily Medicine08/07/22Team MemberRelationshipSpecialtyStart DateEnd Date David Newberry MD PCP - [facility]08/07/22 Goals (unrecognized section and content) Goals may [...] BE BASED ON THE PRIMARY CLINICAL RECORDS. [facility] [employer] [facility]. provides no warranty or guarantee of the accuracy or completeness of information in this document.
== END 2025-02-07 08:08 | disposition home or self-care (01) ==
PROVIDERS: PCP Family Medicine; Visit Provider Nurse Practitioner Family
DX: R06.09 Other forms of dyspnea (principal)
CPT/HCPCS: 93306

== ENCOUNTER 2025-03-04 12:00 | Outpatient (OUT) | payer OTHER, SELFPAY ==
--- OUTSIDE RECORDS SUMMARY | 2025-02-27 15:30 | XMS_ITS | Encounter Summary ---
Author Organization [facility] Address [address] [place] [address] Care Team Providers Care Parts Sales Manager Name Role Phone Carri Ortega MD Primary Care Provider Encounter Details DateTypeDepartmentCare Team (Latest Contact Info)Edbayfaxyev30/15/2025 3:30 PM ESTAncillary Procedure [facility] [address] [place] [address] Awareness of heartbeats Social History [...] 11/26/2021 1:32 PM EDTGender IdentityChoose not to qvsbqcic71/29/2025 11:13 PM EDTSexual OrientationChoose not to mzodqhnu33/29/2025 11:13 PM EDTdocumented as of this encounter Plan of Treatment Not on file documented as of this encounter Procedures Procedure NamePriorityDate/TimeAssociated DiagnosisCommentsCARDIAC DEVICE CHECK CHECK - OFCBOVNkuzyjv97/17/2025 6:46 PM EST Awareness of heartbeats documented in this encounter Results * CARDIAC DEVICE CHECK - REMOTE - LOOP RECORDER (ILR) (03/01/2025 6:46 PM EST) ComponentValueRef RangeTest MethodAnalysis TimePerformed AtPathologist [id number] (Source)Anatomical Location / Laterality Collection Method / VolumeCollection TimeReceived Time Narrative Authorizing ProviderResult TypeResult StatusBlair Lashonda MDCV IMPLANTABLE CARDIAC DEVICE PROCEDURESFinal ResultPerforming OrganizationAddressCity/State/ZIP Code Phone Number CPACS documented in this encounter Visit Diagnoses Diagnosis Awareness of heartbeats documented in this encounter Care Teams Team MemberRelationshipSpecialtyStart DateEnd Date Carri Ortega MD [address] [facility] [address] PCP - Ustpwpl76/3/22documented as of this encounter
--- OUTSIDE RECORDS SUMMARY | 2025-02-28 07:21 | XMS_ITS | Encounter Summary ---
Author Organization [facility] Address [address] [place] [address] Care Team Providers Care Visual Education Teacher Name Role Phone Carri Ortega MD Primary Care Provider [phone] Reason for Referral * Imaging (Routine) - AuthorizedSpecialtyDiagnoses / ProceduresReferred By ContactReferred To ContactRadiology Diagnoses Family history of DVT Dyspnea on exertion Family history of premature CAD Other chest pain Procedures CTA Heart Coronary W IV Contrast W or WO FFRct Amada Stewart CNP [address] [place] [address] Phone: tel: fax: Radiology [address] [place] [phone] Phone: tel: fax: Referral IDStatusReasonStart DateExpiration DateVisits RequestedVisits [id number]/17/202511/ Reason for Visit * Imaging (Routine) - AuthorizedSpecialtyDiagnoses / ProceduresReferred By ContactReferred To ContactRadiology Diagnoses Family history of DVT Dyspnea on exertion Family history of premature CAD Other chest pain Procedures CTA Heart Coronary W IV Contrast W or WO FFRct Amada Stewart CNP [address] [place] [address] Phone: tel: fax: Radiology [address] [place] [phone] Phone: tel: fax: Referral IDStatusReasonStart DateExpiration DateVisits RequestedVisits [id number]/17/202511/ Encounter Details DateTypeDepartmentCare Team (Latest Contact Info)Wmtajcjvgso38/16/2025 7:21 AM EST - 02/28/2025 8:55 AM ESTHospital Encounter [facility] Imaging [address] [place] [address] Family history of DVT; Dyspnea on exertion; Family history of premature CAD; Other chest pain Discharge Disposition: Home or Self Care () Social History Tobacco UseTypesPacks/DayYears UsedDateSmoking Tobacco: NeverSmokeless Tobacco: NeverAlcohol UseStandard Drinks/WeekCommentsYes0 (1 standard drink = 0.6 oz pure alcohol)occasionalUT Safety & EnvironmentAnswerDate RecordedFear of Current or Ex-PartnerNot on file05/07/2023Emotionally AbusedNot on file05/07/2023hysically AbusedNot on file05/07/2023Sexually AbusedNot on file05/07/2023hysically or Sexually AbusedNot on file05/07/2023CommentsUnknownSex and Gender InformationValueDate RecordedSex Assigned at BirthNot on fileLegal SexFemale 11/26/2021 1:32 PM EDTGender IdentityChoose not to /29/2025 11:13 PM EDTSexual OrientationChoose not to oexzgxon12/29/2025 11:13 PM EDTdocumented as of this encounter Last Filed Vital Signs Vital SignReadingTime TakenCommentsBlood Asnylagw207/6802/28/2025 8:25 AM EST Jkueh788302/28/2025 8:25 AM ESTTemperature--Respiratory Eukg738905/01/2024 8:25 AM ESTOxygen Zhcangtcsf575%02/28/2025 8:25 AM ESTInhaled Oxygen Concentration-- Woxqqr333 kg (290 lb)02/28/2025 7:38 AM GIPSpabse752.7 cm (5' 8 )02/28/2025 7:38 AM ESTBody Mass Index44.0902/28/2025 7:38 AM ESTdocumented in this encounter Medications at Time of Discharge MedicationSigDispense QuantityRefillsLast FilledStart DateEnd Date cetirizine (ZyrTEC) 10 mg tablet Indications:Other chest pain,Allergic contact dermatitis, iodine, antiseptic, topicalTake 1 tablet (10 mg) by mouth in the morning. Take in the AM on 02/27/25 and AM of 02/28/25 2 tablet 02/21/2025 famotidine (Pepcid) 40 mg tablet Indications:Other chest pain,Allergic contact dermatitis, iodine, antiseptic, topicalTake 1 tablet (40 mg) by mouth two times daily. Take at 6pm the day before your CT scan and 6am theday of your CT scan 2 tablet 02/21/2025 hydroCHLOROthiazide (Microzide) 12.5 mg capsule Take 12.5 mg by mouth in the morning. metoprolol tartrate 75 mg tablet Indications:PalpitationsTAKE ONE TABLET BY MOUTH TWICE A DAY ( IN THE MORNING AND AT BEDTIME ) 180 tablet SAFFRON EXTRACT ORAL Take 1 tablet by mouth 3 (three) times a week. predniSONE (Deltasone) 50 mg tablet Indications:Other chest pain,Allergic contact dermatitis, iodine, antiseptic, topical1 tab at 6pm, 1 tab at 12am, and 1 tab at 6am 6 tablet documented as of this encounter Plan of Treatment Not on file documented as of this encounter Procedures Procedure NamePriorityDate/TimeAssociated DiagnosisCommentsCTA HEART CORONARY W IV CONTRAST W OR WO WVHBVIjwebzb80/16/2025 8:13 AM EST Family history of DVT Dyspnea on exertion Family history of premature CAD Other chest pain documented in this encounter Results * CTA Heart Coronary W IV Contrast W or WO FFRct (02/28/2025 8:13 AM EST) Anatomical RegionLateralityModalityHeartComputed TomographySpecimen (Source) Anatomical Location / LateralityCollection Method / VolumeCollection Time Received Time03/01/2025 12:04 PM EST Impressions 03/01/2025 12:20 PM EST Impression: Compromised assessment of the right coronary artery due to artifact. Otherwise unremarkable study and no coronary artery stenosis identified. Lowest FFR value 0.9 which is within normal limits involving the second diagonal branch of the LAD. Total calcium score is 0 and total volume score 0 representing 0 percentile risk compared to other patients for coronary disease Appropriate left ventricle ejection fraction 67%. All CT scans at this facility use dose modulation, iterative reconstruction, and/or weight based dosing when appropriate to reduce radiation dose to as low as reasonably achievable. Electronically signed: Reed Perez. Narrative 03/01/2025 12:[address] of the chest for calcium scoring. Enhanced CTA of the coronary arteries with 3-D reformats. Evaluation of the ejection fraction and wall motion. Indication: Family history of premature coronary artery disease. Chest pain. Hypertension. Palpitations. Atrial tachycardia. Procedure: High-resolution Computed Tomographic imaging of the chest was performed ??with particular attention paid to the coronary arteries. Images from the examination were analyzed for the presence and extent of coronary artery calcification, using coronary calcium quantification software. Following the intravenous injection of 100 cc of Omnipaque 350, a gated CTA of the coronary arteries was obtained. In addition, 3-D reformatted images were constructed under concurrent physician supervision on an independent workstation for evaluation of the coronary arteries. Computer software was used for left ventricular analysis, and computation of the ejection fraction and analysis of the LV wall motion.Automated exposure control was utilized. FINDINGS: Examination is markedly compromised by body habitus Left ventricle ejection fraction appropriate calculated at 67.61% Calcium score: Total score is 0 and total volume score 0 representing 0 percentile risk compared to other patients for coronary disease Calcium score within the left main, LAD, circumflex and right coronary artery 0. Imaged portions of the lungs mediastinum and yareli show no acute findings. Thoracic aorta appropriate caliber at the levels imaged No cardiomegaly No thrombi within the left atrium or left atrial appendage at the levels imaged Coronary artery origins unremarkable Coronary artery evaluation: Left Main: No stenosis. LAD: No stenosis Circumflex: No stenosis. Right coronary: Grossly no stenosis but assessment compromised. Heart flow FFR CT application utilized for further assessment. Assessment of the right coronary artery is compromised due to artifacts No stenosis within the left main, circumflex, or LAD coronary arteries. Lowest FFR value 0.9 which is within normal limits involving the second diagonal branch of the LAD. Procedure Note Reed Perez MD - 03/02/[address] of the chest for calcium scoring. Enhanced CTA of thecoronary arteries with 3-D reformats. Evaluation of the ejection fraction andwall motion. Indication: Family history of premature coronary artery disease. Chestpain. Hypertension. Palpitations. Atrial tachycardia. Procedure: High-resolution Computed Tomographic imaging of the chest was performed with particular attention paid to the coronary arteries. Imagesfrom the examination were analyzed for the presence and extent of coronaryartery calcification, using coronary calcium quantification software. Followingthe intravenous injection of 100 cc of Omnipaque 350, a gated CTA of thecoronary arteries was obtained. In addition, 3-D reformatted images wereconstructed under concurrent physician supervision on an independent workstation for evaluation of the coronary arteries. Computer software was used for left ventricular analysis, and computation of the ejection fraction andanalysis of the LV wall motion.Automated exposure control was utilized. FINDINGS: Examination is markedly compromised by body habitus Left ventricle ejection fraction appropriate calculated at 67.61% Calcium score: Total score is 0 and total volume score 0 representing 0 percentile risk compared to other patients for coronary disease Calcium score within the left main, LAD, circumflex and right coronaryartery 0. Imaged portions of the lungs mediastinum and yareli show no acutefindings. Thoracic aorta appropriate caliber at the levels imaged No cardiomegaly No thrombi within the left atrium or left atrial appendage at the levelsimaged Coronary artery origins unremarkable Coronary artery evaluation: Left Main: No stenosis. LAD: No stenosis Circumflex: No stenosis. Right coronary: Grossly no stenosis but assessment compromised. Heart flow FFR CT application utilized for further assessment. Assessment of the right coronary artery is compromised due to artifacts No stenosis within the left main, circumflex, or LAD coronary arteries.Lowest FFR value 0.9 which is within normal limits involving the second diagonalbranch of the LAD. IMPRESSION: Impression: Compromised assessment of the right coronary artery due to artifact.Otherwise unremarkable study and no coronary artery stenosis identified. Lowest FFR value 0.9 which is within normal limits involving the seconddiagonal branch of the LAD. Total calcium score is 0 and total volume score 0 representing 0percentile risk compared to other patients for coronary disease Appropriate left ventricle ejection fraction 67%. All CT scans at this facility use dose modulation, iterativereconstruction, and/or weight based dosing when appropriate to reduce radiation dose to aslow as reasonably achievable. Electronically signed: Reed Perez. Authorizing ProviderResult TypeResult StatusMeljefferson Stewart CNPIMG CT PROCEDURES Final Result documented in this encounter Visit Diagnoses Diagnosis Family history of DVT Dyspnea on exertion Other dyspnea and respiratory abnormality Family history of premature CAD Family history of ischemic heart disease Other chest pain documented in this encounter Administered Medications Medication OrderMAR ActionAction DateDoseRateSite iohexol (OMNIPaque) 350 mg iodine/mL injection 100 mL 100 mL, intravenous, Once in imaging, Starting on Thu02/28/25 at 0811, For 1 day Given02/28/2025 8:12 AM AYB020 mL metoprolol tartrate (Lopressor) injection intravenous, As needed, Starting on Thu02/28/25 at 0751, Intraprocedure Given02/28/2025 7:51 AM EST5 mg nitroglycerin (Nitrostat) SL tablet sublingual, As needed, Starting on Thu02/28/25 at 0759, Intraprocedure Given02/28/2025 7:59 AM EST0.8 mgdocumented in this encounter Care Teams Team MemberRelationshipSpecialtyStart DateEnd Date Carri Ortega MD [address] [place] [address] #A PCP - Oymtqrt41/3/22documented as of this encounter
--- OUTSIDE RECORDS SUMMARY | 2025-02-28 08:56 | XMS_ITS | Encounter Summary ---
Author Organization [facility] Address [address] [place] [address] Care Team Providers Care Saw Offbearer Name Role Phone Carri Ortega MD Primary Care Provider [phone] Reason for Referral * Imaging (Routine) - Pending ReviewSpecialtyDiagnoses / ProceduresReferred By ContactReferred To ContactRadiology Diagnoses Family history of DVT Dyspnea on exertion Family history of premature CAD Other chest pain Procedures CT FFRct Heartflow Amada Stewart CNP [address] [place] [address] Phone: tel: fax: Referral IDStatusReasonStart DateExpiration DateVisits RequestedVisits [id number] Reason for Visit * Imaging (Routine) - Pending ReviewSpecialtyDiagnoses / ProceduresReferred By ContactReferred To ContactRadiology Diagnoses Family history of DVT Dyspnea on exertion Family history of premature CAD Other chest pain Procedures CT FFRct Heartflow Amada Stewart CNP [address] [place] [address] Phone: tel: fax: Referral IDStatusReasonStart DateExpiration DateVisits RequestedVisits [id number] Encounter Details DateTypeDepartmentCare Team (Latest Contact Info)Srgnctvwflk57/16/2025 8:56 AM EST - 02/28/2025 11:59 PM ESTHospital Encounter [facility] Imaging [address] [place] [address] Family history of DVT; Dyspnea [...] 11/26/2021 1:32 PM EDTGender IdentityChoose not to xprknazs53/29/2025 11:13 PM EDTSexual OrientationChoose not to gtwkcelf94/29/2025 11:13 PM EDTdocumented as of this encounter Medications at Time of Discharge [...] as of this encounter Procedures Procedure NamePriorityDate/TimeAssociated DiagnosisCommentsCT FFRCT HEARTFLOW Sgxoird8502/28/2025 8:56 AM EST Family history of DVT Dyspnea on exertion Family history of premature CAD Other chest pain documented in this encounter Results * CT FFRct Heartflow (02/28/2025 8:56 AM EST)Anatomical RegionLateralityModality HeartOtherSpecimen (Source)Anatomical Location / LateralityCollection Method / VolumeCollection TimeReceived Time03/01/2025 12:04 PM EST Impressions 03/02/2025 10:06 AM EST Impression: Compromised assessment of the right [...] reasonably achievable. Electronically signed: Reed Perez. Narrative 03/02/2025 10:[address] of the chest for [...] Electronically signed: Reed Perez. Authorizing ProviderResult TypeResult StatusEastern Niagara Hospitaljefferson Stewart [facility] PROCED[facility] Final Result documented in this encounter Visit Diagnoses Diagnosis Family history of DVT Dyspnea on exertion Other dyspnea and respiratory abnormality Family history of premature CAD Family history of ischemic heart disease Other chest pain documented in this encounter Care Teams Team MemberRelationshipSpecialtyStart DateEnd Date Carri Ortega MD [address] PCP - Mbqjekh01/3/22documented as of this encounter
--- OUTSIDE RECORDS SUMMARY | 2025-03-04 12:04 | XMS_ITS | Clinical Summary ---
Author Organization [facility] Address [address] [place] [address] Care Team Providers Care Assistant Child Care Teacher Name Role Phone Carri Ortega MD Primary Care Provider [phone] Allergies No known active allergies Medications MedicationSigDispense QuantityRefillsLast FilledStart DateEnd DateStatus Hdnhdbau-Ld-Nvo-Fe-FA ( VITAMIN) tab Take 1 tablet by mouth once daily.Active thiamine HCl (VITAMIN B-1 ORAL) Take 1 tablet by mouth once daily.Active ascorbic acid (VITAMIN C ORAL) Take 1 tablet by mouth once daily.Active Active Problems ProblemNoted DateDiagnosed DateBMI 35.0-35.9,adult03/29/2019Primary Sjogren's tetehfwg81/12/2016Precordial pain05/03/2015 Resolved Problems ProblemNoted DateDiagnosed DateResolved DateHeart uavhfkaxnvzo28/18/2016 03/29/20193518Gnaaqontd04SOB (shortness of breath)05/03/2015 03/29/2019 Family History Medical HistoryRelationCommentsHeartFatherMI age 44HypertensionFatherLipids FatherNoneMotherRelationStatusCommentsFatherAliveMotherAlive Social History Tobacco UseTypesPacks/DayYears UsedDateSmoking Tobacco: NeverSmokeless Tobacco: NeverAlcohol UseStandard Drinks/WeekCommentsYes0 (1 standard drink = 0.6 oz pure alcohol)occassionalArea Deprivation IndexAnswerDate RecordedNational Score (1- 100), lower number is lower riskNot on file02/22/2020State Score (1-10), lower number is lower riskNot on file02/22/2020Data from: https://www.neighborhoodatlas.medicine.[facility].edu/. Last address used for calculationNot on file02/22/2020CommentsNoSex and Gender Information ValueDate RecordedSex Assigned at BirthNot on fileLegal KlfVxcaln77/22/2014 10:13 AM EDTGender IdentityNot on fileSexual OrientationNot on fileOccupation IndustryJob Start DateJob End DateCosmetololgyNot on fileNot on fileNot on file Last Filed Vital Signs Vital SignReadingTime TakenCommentsBlood Bhdiwllr102/75004/13/2017 10:24 AM EST Opazz902404/13/2017 10:24 AM NKNHhscjbrwbdj61.2 ??C (97.2 ??F)06/14/2015 10:33 AM EDTRespiratory Kgmb845704/13/2017 10:24 AM ESTOxygen Lvovlzyvcj335%04/13/2017 10:24 AM ESTInhaled Oxygen Concentration--Ztvvta306.1 kg (240 lb 8 oz)03/29/2019 10:02 AM CXKMxbhtt757.7 cm (5' 8 )03/29/2019 10:02 AM ESTBody Mass Index36.57 03/29/2019 10:02 AM EST Plan of Treatment Health MaintenanceDue DateLast DoneCommentsAnxiety Nartmcqkj83/24/2009Depression Kidkyfbvf71/24/2009HIV Mopabbneg89/24/2009Hepatitis C Xtvapzvqp83/24/2009 DTaP,Tdap,Td Vaccine (1 - Tdap)2009Hepatitis B Vaccine (1 of 3 - 19+ 3- dose series)2009Cervical Cancer Potaukqig66/24/2012HPV Vaccine (1 - 3-dose SCDM series)2017Covid-19 Vaccine (1 - 2024- season)2024Influenza Vaccine (#1)2024 Insurance * Guarantor: Lashell Kirkland TypeRelation to PatientDate of BirthPhone Billing AddressPersonal/VbugjfHeef58/24/1991 [address] [place] [address] Care Teams Team MemberRelationshipSpecialtyStart DateEnd Date Carri Ortega MD [address] [facility] [place] [address] PCP - GeneralFamily Medicine11/04/13
--- OUTSIDE RECORDS SUMMARY | 2025-03-04 12:04 | XMS_ITS | Patient Health Record ---
Author Organization [facility] [employer] [facility] Address [address] [place] [address], [place] [address] Care Team Providers Care Farm Contractor Name Role Phone Mike Rivera Unavailable [phone] Allergies Allergen (clinical drug ingredient) Drug/Non Drug Allergy documented on EMR Reaction Allergy Type Onset Date Status IodinerashDrug AllergyActivePenicillinrashDrug AllergyActive Reason For Referral No Information Medications Medication SIG (Take, Route, Frequency, Duration) Notes Start Date End Date Status dexAMETHasone Sodium Phospha te 4 MG/ML Solution 1.5 - 2.5 mL topical 3 times a week; Duration: 28 days 5ActivehydroCHLOROthiazide 12.5 MG CapsuleTAKE ONE CAPSULE BY MOUTH ONCE DAILY Oral; Duration: 30 DaysActiveMetoprolol Tartrate 75 MG TabletOral; Duration: 30 DaysActive Social History Section Notes: Patient is a nonsmoker. Social alcohol use. Patient is a nonsmoker. Social alcohol use. 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 Discussed ASO and Shock Doctor OTC ankle braces as well. May require advanced imaging depending on her progression 10/21/2024Rupture of plantar fascia of left foot, initial encounter (ICD-10 - S93.692A) Patient was seen and evaluated. Patient education provided and all questions answered to satisfaction. I recommended nonsurgical treatment at this time. Treatment advices included: - RICE therapy as well as shoe and activity modification. Handout was provided regarding OTC orthotics - Physical therapy order was provided with modalities including dry needling and iontophoresis - Recommended a night spint which she can purchase on her own - Discussed medications and potential side effect. Medication(s) recommended/prescribed: dexamethasone for iontophoresis. Patient is to discuss PO and topical NSAIDs with PCP at f/u - Imaging ordered: none - discuss potential need for right ankle xrays/MRI if symptoms do not improve 11/24/2024Right ankle instability (ICD-10 - M25.371) Patient was seen and evaluated. Patient education provided and all questions answered to satisfaction. Bracing, PT, RICE therapy and tylenol have not helped her pain or dysfunction. She has had symptoms for nearly 3 months. - I discussed that she may require surgery if her symptoms continue and are affecting ADLs as well as recreation. I am concerned for osteochondral defect. - Imaging ordered: MRI w/o contrast of right ankle. 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 If she cannot have an MRI a CT w/o contrast wouldbe the best option to evaluate for osteochondral defect. 11/24/2024Right peroneal tendinosis (ICD-10 - M67.88)11/24/2024Osteochondral defect of talus (ICD-10 - M95.8)10/21/2024Right peroneal tendinosis (ICD-10 - M67.88)11/24/2024Rupture of plantar fascia of left foot, initial encounter (ICD- 10 - S93.692A)Symptoms have improved with PT. Continue RICE, stretching and massage.11/24/2024OtherConfirmation from her male infertility specialist that her cardiac loop monitor is MRI compatible/safe Plan Of Treatment No Information Insurance Providers Payer Name Payer Address Payer Phone Subscriber Number Group Number Insured Name Patient Relationship to Insured Coverage Start Date Coverage End Date [employer] [address] [address] [place] [address] [id number] Taras Cramer - patient is the spouse of the insured Medical (General) History Medical History History ICD Code Heart Disease- SVT Surgical History Surgery Date(Month/Year) Tonsils 2012 Kidney Stone 2021 Hysterectomy 2022
--- OUTSIDE RECORDS SUMMARY | 2025-03-04 12:04 | XMS_ITS | Encounter Summary ---
Author Organization [facility] Address [address] [place] [address] Care Team Providers Care Hospital Medical Assistant Name Role Phone Carri Ortega MD Primary Care Provider [phone] Encounter Details DateTypeDepartmentCare Team (Latest Contact Info)Xotnmwfhtuu92/13/2025Orders Only [facility] [address] [place] [address] Kurt Hernadez MD [address] [place] [address] Social History Tobacco UseTypesPacks/DayYears UsedDateSmoking Tobacco: NeverSmokeless Tobacco: NeverAlcohol UseStandard Drinks/WeekCommentsYes0 (1 standard drink = 0.6 oz pure alcohol)occasionalUT Safety & EnvironmentAnswerDate RecordedFear of Current or Ex-PartnerNot on file05/07/2023Emotionally AbusedNot on file05/07/2023hysically AbusedNot on file05/07/2023Sexually AbusedNot on file05/07/2023hysically or Sexually AbusedNot on file05/07/2023CommentsUnknownSex and Gender InformationValueDate RecordedSex Assigned at BirthNot on fileLegal SexFemale 11/26/2021 1:32 PM EDTGender IdentityChoose not to raqazkbb65/29/2025 11:13 PM EDTSexual OrientationChoose not to gthqjlpa79/29/2025 11:13 PM EDTdocumented as of this encounter Plan of Treatment Not on file documented as of this encounter Procedures Procedure NamePriorityDate/TimeAssociated DiagnosisCommentsCARDIAC DEVICE CHECK - REMOTE - LOOP RECORDER (ILR)Wzjxvpx5502/25/2025 12:00 AM ESTdocumented in this encounter Results * Cardiac device check - Remote loop recorder (ILR) (02/25/2025 12:00 AM EST) Anatomical RegionLateralityModalityOtherSpecimen (Source)Anatomical Location / LateralityCollection Method / VolumeCollection TimeReceived Time02/25/2025 Narrative Authorizing ProviderResult TypeResult StatusSadandre Hernadez M[facility] IMPLANTABLE CARDIAC DEVICE PROCEDURESFinal Result documented in this encounter Visit Diagnoses Not on filedocumented in this encounter Care Teams Team MemberRelationshipSpecialtyStart DateEnd Date Carri Ortega MD [address] [facility] [address] PCP - Iiqfmpf28/3/22documented as of this encounter
--- OUTSIDE RECORDS SUMMARY | 2025-03-04 12:04 | XMS_ITS | Clinical Summary ---
Author Organization [facility] Address [address], [address] [place] [address] Care Team Providers Care Optical Glass Sawyer Name Role Phone Carri Ortega MD Primary Care Provider [phone] Social History Tobacco UseTypesPacks/DayYears UsedDateSmoking Tobacco: Never Assessed CommentsUnknownSex and Gender InformationValueDate RecordedSex Assigned at Not on fileLegal BlhUsbmgv46/04/2023 3:29 PM ESTGender IdentityNot on fileSexual OrientationNot on file Plan of Treatment Health MaintenanceDue DateLast DoneCommentsDepression Jjmrbc3812/07/2002Varicella vaccine (1 of 2 - 13+ 2-dose series)12/08/2003HIV gdcona7712/07/2005Hepatitis C susreq4212/07/2008Hepatitis B vaccine (1 of 3 - 19+ 3-dose series)2009Pap smear12/08/2011Cervical cancer fezngg8812/07/2020HPV (without or with Pap) 2020Flu vaccine (#1)5COVID-19 [...] DateEnd Date Carri Ortega MD [address] [place] [address] PCP - GeneralFamily Grtabowg17/15/23
--- OUTSIDE RECORDS SUMMARY | 2025-03-04 12:04 | XMS_ITS | Encounter Summary ---
Author Organization [facility] Address [address] [place] [address] Care Team Providers Care School Psychology Specialist Name Role Phone Carri Ortega MD Primary Care Provider [phone] Encounter Details DateTypeDepartmentCare Team (Latest Contact Info)Tmjdyvisaoc57/08/2025Orders Only [facility] Heart at [facility] [address] [place] [address] Rhoda Handy MA Social History Tobacco UseTypesPacks/DayYears UsedDateSmoking Tobacco: NeverSmokeless Tobacco: NeverAlcohol UseStandard Drinks/WeekCommentsYes0 (1 standard drink = 0.6 oz pure alcohol)occasionalUT Safety & EnvironmentAnswerDate RecordedFear of Current or Ex-PartnerNot on file05/07/2023Emotionally AbusedNot on file05/07/2023hysically AbusedNot on file05/07/2023Sexually AbusedNot on file05/07/2023hysically or Sexually AbusedNot on file05/07/2023CommentsUnknownSex and Gender InformationValueDate RecordedSex Assigned at BirthNot on fileLegal SexFemale 11/26/2021 1:32 PM EDTGender IdentityChoose not to uhtvujxv58/29/2025 11:13 PM EDTSexual OrientationChoose not to xcgyneym06/29/2025 11:13 PM EDTdocumented as of this encounter Plan of Treatment Not on file documented as of this encounter Visit Diagnoses Not on filedocumented in this encounter Care Teams Team MemberRelationshipSpecialtyStart DateEnd Date Carri Ortega MD [address] [facility] [address] [facility] - Alivctw50/3/22documented as of this encounter
--- OUTSIDE RECORDS SUMMARY | 2025-03-04 12:04 | XMS_ITS | Encounter Summary ---
Author Organization [facility] Address [address] [place] [address] Care Team Providers Care Dip Unit Operator Name Role Phone Carri Ortega MD Primary Care Provider [phone] Encounter Details DateTypeDepartmentCare Team (Latest Contact Info)Etpqwolwvue87/16/2025Travel Social History Tobacco UseTypesPacks/DayYears UsedDateSmoking Tobacco: NeverSmokeless [...] /29/2025 11:13 PM EDTSexual OrientationChoose not to qylkcmxr94/29/2025 11:13 PM EDTdocumented as of this encounter Plan of Treatment Not on file documented as of this encounter Visit Diagnoses Not on filedocumented in this encounter Care Teams Team MemberRelationshipSpecialtyStart DateEnd Date Carri Ortega MD [address] PCP - Lqticcu02/3/22documented as of this encounter
--- OUTSIDE RECORDS SUMMARY | 2025-03-04 12:04 | XMS_ITS | Clinical Summary ---
Author Organization [facility] Address [address] [place] [address] Care Team Providers Care Stroke Program Coordinator Name Role Phone Carri Ortega MD Primary Care Provider [phone] Allergies Active AllergyReactionsCriticalityNoted DateCommentsIodineRash,UnknownLow 12/04/20231355DkjbzCrjogev38/10/2024 Stimulants Penicillin GRash,KastnDzn15/10/2022ovidone IcvucdTytpMiv24/10/2024 Povidone-IwbdbtQbwcCbc74/19/2023 Medications MedicationSigDispense QuantityRefillsLast FilledStart DateEnd DateStatus metoprolol tartrate (Lopressor) 75 MG tablet every 12 (twelve) hours.Active hydroCHLOROthiazide (Microzide) 12.5 MG capsule Take 12.5 mg by mouth in the morning.5Active Active Problems ProblemNoted DateDiagnosed OdyzPngkrft20/13/2024OSA (obstructive sleep apnea) 07/24/20230560Uifoopg97/10/2024LMD (periodic limb movement disorder)07/24/2023 Gfbylwpmvoy05/10/2024Obesity due to excess calories, unspecified obesity apxenygg95/10/2024 Family History Medical HistoryRelationNameCommentsHeart diseaseBrother 1HypertensionBrother 1 [...] the highest degree you have received?High school fyxatteq73/22/2023CommentsUnknownSex and Gender InformationValueDate RecordedSex Assigned at BirthNot on fileLegal SexFemale 05/28/2022 7:11 PM EDTGender CkbnkdujAbydvu96/15/2023 7:11 PM EDTSexual OrientationNot on file Last Filed Vital Signs Vital SignReadingTime TakenCommentsBlood Hhdvblud465/7809 11:27 AM EDT Pqaxl986802/08/2024 8:30 AM ESTTemperature--Respiratory Rate--Oxygen Hsfpqqehnd75% 07/27/2023 3:09 PM EDTInhaled Oxygen Concentration--Pgkbmg673 kg (289 lb) 11/25/2024 11:27 AM OWGNvubsg087.7 cm (5' 8 )02/08/2024 8:30 AM ESTBody Mass Index43.9402/08/2024 8:30 AM EST Plan of Treatment DateTypeDepartmentCare Team (Latest Contact Info)Htssqbordsz34/18/2026 11:45 AM EDTOffice Visit [facility] [address] [place] [address] Dasha Garcia DO [address] [place] [address] Health MaintenanceDue DateLast DoneCommentsCOVID-19 Vaccine ( season) , 04/25/2020, 03/28/2020, Additional history existsInfluenza Vaccine (#1)11/14/2024Pap Smear6010/17/2022ervical Cancer Screening 10/18/2027HPV/Kwsrql98/06/2022, 08/16/2021, 08/03/2020, Additional history existsPneumococcal Vaccine: Pediatrics (0 to 5 Years) and At-Risk Patients (6 to 64 Years)Aged OutNo longer eligible based on patient's age to complete this topic Procedures Procedure NamePriorityDate/TimeAssociated DiagnosisCommentsTHINPREP TIS PAP W/REFL HPV MRNA E6/W5Tgxzktp35/04/2023 10:10 AM EDT Screening for malignant neoplasm of cervix from Last 3 Months or Most Recently Relevant to Health Maintenance Results * THINPREP TIS PAP W/REFL HPV MRNA E6/E7 (10/17/2022 10:10 AM EDT)ComponentValue Ref RangeTest MethodAnalysis TimePerformed AtPathologist SignatureCLINICAL INFORMATIONQUESTComment:None givenLMPQUESTComment:10/08/22PREV. PAPQUEST Comment:. BXQUESTComment:NONE GIVENSOURCEQUESTComment:Cervix, EndocervixSTATEMENT OF ADEQUACYQUESTComment: Satisfactory for evaluation. Endocervical/transformation zone component present. INTERPRETATION/RESULTQUESTComment: Cytology Results: Negative for intraepithelial lesion or malignancy. CYTOTECHNOLOGISTQUESTComment: RALPH MENDOZA(ASCP) CT screening location: [place] [address]. (ALWAYS MESSAGE)QUESTComment: EXPLANATORY NOTE: The Pap is [...] / LateralityCollection Method / Volume Collection TimeReceived YzecPbjjg60/04/2023 10:10 AM EDT10/18/2022 3:17 AM EDT Narrative Resulting Agency Comment Performing Organization Information ?Site ID: [id number] ?Name: [facility] ?Address: [facility] , [address] [place] [id number] ?Director: Chencho Ferris MD Authorizing ProviderResult TypeResult StatusKathleen E Rinkes DOLAB CYTOLOGY ORDERABLESFinal ResultPerforming OrganizationAddressCity/State/ZIP CodePhone Number [facility] from Last 3 Months or Most Recently Relevant to Health Maintenance Insurance Care Teams Team MemberRelationshipSpecialtyStart DateEnd Date Carri Ortega MD [address] [place] [address] PCP - GeneralFamily Medicine08/07/22
--- OUTSIDE RECORDS SUMMARY | 2025-03-04 12:04 | XMS_ITS | Clinical Summary ---
Author Organization [facility] Address [address] [place] [address] Care Team Providers Care Educational Programming Director Name Role Phone Carri Ortega MD Primary Care Provider [phone] Allergies Active AllergyReactionsCriticalityNoted DateCommentsIodineRash,UnknownLow 12/04/20237175GuvhtIfukamc29/10/2024 Stimulants AzernhahadMciyQea04/10/2022ovidone-NstzuuUyjhRky91/19/2023 Medications MedicationSigDispense QuantityRefillsLast FilledStart DateEnd DateStatus hydroCHLOROthiazide (Microzide) 12.5 mg capsule Take 12.5 mg by mouth in the morning.Active SAFFRON EXTRACT ORAL Take 1 tablet by mouth 3 (three) times a week.Active metoprolol tartrate 75 mg tablet Indications:PalpitationsTAKE ONE TABLET BY MOUTH TWICE A DAY ( IN THE MORNING AND AT BEDTIME ) 180 tablet 5Active cetirizine (ZyrTEC) 10 mg tablet Indications:Other chest pain,Allergic contact dermatitis, iodine, antiseptic, topicalTake 1 tablet (10 mg) by mouth in the morning. Take in the AM on 02/27/25 and AM of 02/28/25 2 tablet 5Active famotidine (Pepcid) 40 mg tablet Indications:Other chest pain,Allergic contact dermatitis, iodine, antiseptic, topicalTake 1 tablet (40 mg) by mouth two times daily. Take at 6pm the day before your CT scan and 6am theday of your CT scan 2 tablet 5Active metoprolol tartrate 75 mg tablet Indications:PalpitationsTake 1 tablet (75 mg) by mouth two times daily. 180 tablet Discontinued predniSONE (Deltasone) 50 mg tablet Indications:Other chest pain,Allergic contact dermatitis, iodine, antiseptic, topical1 tab at 6pm, 1 tab at 12am, and 1 tab at 6am 6 tablet Expired Active Problems ProblemNoted DateDiagnosed DateRight ankle pain01/26/2025Right ankle sprain 01/26/20251816Euberbtilbygli96/07/2025bnormal weight gain02/16/2024ADHD104/18/2023 Daytime zdqwpamqwc31/03/7769Dahpzgixoj30/03/2024Family history of kidney stones 02/16/20241878Fgjtuka79/03/2024Lower extremity edema02/16/20248973Ydoluq06/03/2024 Bwpbrnf3107/27/20239369Caduvgyyiac11/10/2024Obstructive sleep apnea /10/2024 PLMD (periodic limb movement disorder)07/24/20234658Mrmbiqyndpq71 History of other genital system and obstetric hxcrfiyit98 Kcwzvexoqiy58S/P laparoscopic plprrejuozwf03 Postural dizziness with near ubayhmq0501/09/2023History of kidney qbvlpe8809/10/2022 09/10/2022idney stoneLeft sided abdominal pain09/10/2022 09/10/2022MRSA wlllotgsvp18Recurrent UTI09/10/ Noueurrsfnl04/28/Urinary lpdqrpnbt66Urinary kjfvcsw99Verruca znsnnuhz69cute bronchitis 03/28/20226489Zvbqhzc33/13/2023ack pain03/28/20222523Bracnrrm95/13/2023ontact mmhffkgdeb96/13/2883Swxnck54/13/2023Epigastric pain03/28/2022Fibromyalgia 03/28/2022astroesophageal reflux bodbroi3503/28/2022ross kibtlhpwe24/13/2023 Nydvimqfuyqo03/13/2023 Assessment & Plan (04/09/2022 4:09 PM EST): hypertension is stable today. Otitis media03/28/20220876Tpbndoxhcibn09/13/2023 Assessment & Plan (04/09/2022 4:09 PM EST): [...] and any syncopal events Right flank pain03/28/2022Spontaneous bvydvnvyet91/13/2023Symptoms involving urinary ncqeqg1303/28/20222709Agsvuvv12/13/2023MI 35.0-35.9,adult03/29/2019Primary Sjogren's nqgaauxe21/12/2016Precordial pain05/03/2015 Encounters DateTypeDepartmentCare EkraPjskucelada19/16/2025 8:56 AM EST - 02/28/2025 11:59 PM ESTHospital Encounter [facility] Imaging [address] [place] [phone] Family history of DVT; Dyspnea on exertion; Family history of premature CAD; Other chest pain Discharge Disposition: Home or Self Care ()02/28/2025 7:21 AM EST - 02/28/2025 8:55 AM ESTHospital Encounter [facility] CT Imaging [address] [place] [phone] Family history of DVT; Dyspnea on exertion; Family history of premature CAD; Other chest pain Discharge Disposition: Home or Self Care ()02/28/20256192Fjhylh80/15/2025 3:30 PM ESTAncillary Procedure [facility] [address] [place] [address] Awareness of oyoayzuayq61/13/2025Orders Only [facility] [address] [place] [address] Kurt Hernadez MD 02/21/2025Orders Only [facility] [address] [place] [address] Amada Stewart CNP Family history of premature CAD (Primary Dx); Dyspnea on exertion; Other chest pain; Allergic contact dermatitis, iodine, antiseptic, wvizsnz3202/20/2025Refill [facility] [address] [facility] [place] [address] Amada Stewart CNP Atkxwjrgpnae37/08/2025Orders Only [facility] [address] [place] [address] Rhoda Handy MA 02/14/2025Results Follow-Up [facility] [address] [place] [phone] Amada Stewart CNP Transthoracic echo (TTE) complete, CTA Heart Coronary W IV Contrast W or WO FFRct104/10/2024Orders Only [facility] [address] [place] [address] ProviderKarel MD Dyspnea on ymhhuqoh42/13/2025 10:20 AM ESTOffice Visit [facility] [address] [place] [address] Amada Stewart CNP Family history of DVT (Primary Dx); Dyspnea on exertion; Family history of premature CAD; Palpitations; Other chest pain; Primary hypertension; Status post placement of implantable loop recorder; Family history of blood clots103/27/2024 8:35 AM ESTAncillary Procedure [facility] [address] [place] [phone] Awareness of /12/2025Orders Only [facility] [address] [facility] [place] [address] Kurt Hernadez MD 12/26/2024 7:30 AM EDTAncillary Procedure [facility] [address] [place] [address] Awareness of sywsjkawkx57/13/2025Refill [facility] at [facility] [address] [facility] [place] [address] Amada Stewart CNP Lrdvkzcgxqum77/12/2025Orders Only [facility] [address] [place] [place] [address] Kurt Hernadez MD from Last 3 Months Immunizations ImmunizationAdministration DatesNext DueHep B, adult07/01/2018,05/21/2018Moderna SARS-CoV-2 Gadygyduhnx86/10/2021,03/28/2020Tdap06/07/2019 Family History Medical HistoryRelationNameCommentsClotting disorderFatherCoronary artery diseaseFatherHeart [...] 11/26/2021 1:32 PM EDTGender IdentityChoose not to gzrcydcp31/29/2025 11:13 PM EDTSexual OrientationChoose not to cdnynooj25/29/2025 11:13 PM EDT Last Filed Vital Signs Vital SignReadingTime TakenCommentsBlood Phimdeis074/6802/28/2025 8:25 AM EST Inqnv122302/28/2025 8:25 AM ESTTemperature--Respiratory Fwiw040505/01/2024 8:25 AM ESTOxygen Vvjuvofwyg640%02/28/2025 8:25 AM ESTInhaled Oxygen Concentration-- Jbpxcn188 kg (290 lb)02/28/2025 7:38 AM RVXWprudp757.7 cm (5' 8 )02/28/2025 7:38 AM ESTBody Mass Index44.0902/28/2025 7:38 AM EST Plan of Treatment Health MaintenanceDue DateLast DoneCommentsDepression Ehqxqvdcd51/24/2003 Varicella Vaccines (1 of 2 - 13+ 2-dose series)12/08/2003Pap Smear12/08/2011HPV Vaccines (1 - 3-dose SCDM series)2017Hepatitis B Vaccines (3 of 3 - 19+ 3- dose series)/, 05/21/2018Cervical Cancer Elfroadti16/24/2021 HPV/Dwzgxl0412/07/2020OVID-19 Vaccine ( season)5004/25/2020, 04/25/2020, 03/28/2020, Additional history existsInfluenza Vaccine (#1) 11/14/2024dult Vocbpay47/24/Zoster Vaccines (1 of 2)2040HIB VaccinesAged OutNo longer [...] Expiration DateModel / Serial / LotMonitor,Cardiac,Mobile,Luxdx - [id number] - [id number] Implanted:Qty: 1 on 08/21/2022 by Og [facility]one [facility] Loop RecorderBoston Scsgldyhni96/20/[id number] / [id number] / Procedures Procedure NamePriorityDate/TimeAssociated DiagnosisCommentsCARDIAC DEVICE CHECK CHECK - OBMQZFMytkxkr51/17/2025 6:46 PM EST Awareness of heartbeats CT FFRCT CSBEUVQPPOqmmnlm00/16/2025 8:56 AM EST Family history of DVT Dyspnea on exertion Family history of premature CAD Other chest pain CTA HEART CORONARY W IV CONTRAST W OR WO IUPVSQjvjsdg11/16/2025 8:13 AM EST Family history of DVT Dyspnea on exertion Family history of premature CAD Other chest pain CARDIAC DEVICE CHECK - REMOTE - LOOP RECORDER (ILR)Ixkedzy8602/25/2025 12:00 AM ESTCOMPLETE TRANSTHORACIC ECHO (TTE) W/WO IMAGING AGENT, STRAIN, 3D, BUBBLE WYFCFJbwetsq53/26/2025 9:34 AM EST Dyspnea on exertion CARDIAC DEVICE CHECK CHECK - GGMKRLJshocgy06/12/2025 4:51 PM EST Awareness of heartbeats CARDIAC DEVICE CHECK - REMOTE - LOOP RECORDER (ILR)Ipscdbj0901/25/2025 12:00 AM ESTCARDIAC DEVICE CHECK CHECK - WXFHHLVdnpiwb10/17/2025 10:58 AM EDT Awareness of heartbeats CARDIAC DEVICE CHECK - REMOTE - LOOP RECORDER (ILR)Yggafke2812/25/2024 12:00 AM EDTCARDIAC DEVICE CHECK CHECK - ZNUPLWYciwvpu46/22/2025 10:12 AM EDT Awareness of heartbeats from Last 3 Months Results * CARDIAC DEVICE CHECK - REMOTE - LOOP RECORDER (ILR) (03/01/2025 6:46 PM EST) Only the most recent of4 resultswithin the time period is included. ComponentValueRef RangeTest MethodAnalysis TimePerformed AtPathologist Signature BSA2.94s3OUDFONvcghjke (Source)Anatomical Location / LateralityCollection Method / VolumeCollection TimeReceived Time Narrative Authorizing ProviderResult TypeResult StatusBlair Lashonda MDCV IMPLANTABLE CARDIAC DEVICE PROCEDURESFinal ResultPerforming OrganizationAddressCity/State/ZIP Code Phone Number CPACS * CT FFRct Heartflow (02/28/2025 8:56 AM [...] Electronically signed: Reed Perez. Authorizing ProviderResult TypeResult [facility] CT PROCEDURES Final Result * CTA Heart Coronary W IV Contrast [...] Electronically signed: Reed Perez. Authorizing ProviderResult TypeResult StatusAmada Stewart [facility] PROCED[facility] Final Result * Cardiac device check - Remote loop recorder (ILR) (02/25/2025 12:00 AM EST) Only the most recent of3 resultswithin the time period is included. Anatomical RegionLateralityModalityOtherSpecimen (Source)Anatomical Location / LateralityCollection Method / VolumeCollection TimeReceived Time02/25/2025 Narrative Authorizing ProviderResult TypeResult Treasure Hernadez MDCV IMPLANTABLE CARDIAC DEVICE PROCEDURESFinal Result * Transthoracic echo (TTE) complete (02/08/2025 9:34 AM EST)Anatomical Region LateralityModalityUltrasound Narrative Authorizing ProviderResult TypeResult StatusAmada Stewart CNPCV ECHO PROCEDURES Final Result from Last 3 Months Insurance Advance Directives * Full Code (Latest Code Status on File) Date ActivatedDate InactivatedComments08/21/2022 12:32 PM08/21/2022 2:51 PM Care Teams Team MemberRelationshipSpecialtyStart DateEnd Date Carri Ortega MD [address] [facility] [address]A PCP - Qsfbauh49/3/22
--- OUTSIDE RECORDS SUMMARY | 2025-03-04 12:04 | XMS_ITS | Encounter Summary ---
Author Organization [facility] Address [address] [place] [address] Care Team Providers Care Purse Maker Name Role Phone Carri Ortega MD Primary Care Provider [phone] Reason for Visit * ReasonCommentsMed Refill Encounter Details DateTypeDepartmentCare Team (Latest Contact Info)Dnoutvmpxku80/08/2025Refill [facility] Heart at [facility] [address] [place] [address] Amada Stewart, LECTURER IN MARKETING [address] [place] [address] Palpitations Social History Tobacco UseTypesPacks/DayYears UsedDateSmoking Tobacco: NeverSmokeless Tobacco: NeverAlcohol UseStandard Drinks/WeekCommentsYes0 (1 standard drink = 0.6 oz pure alcohol)occasionalUT Safety & EnvironmentAnswerDate RecordedFear of Current or Ex-PartnerNot on file05/07/2023Emotionally AbusedNot on file05/07/2023hysically AbusedNot on file05/07/2023Sexually AbusedNot on file05/07/2023hysically or Sexually AbusedNot on file05/07/2023CommentsUnknownSex and Gender InformationValueDate RecordedSex Assigned at BirthNot on fileLegal SexFemale 11/26/2021 1:32 PM EDTGender IdentityChoose not to nrjleste96/29/2025 11:13 PM EDTSexual OrientationChoose not to ferqwkcw49/29/2025 11:13 PM EDTdocumented as of this encounter Plan of Treatment Not on file documented as of this encounter Visit Diagnoses Diagnosis Palpitations documented in this encounter Care Teams Team MemberRelationshipSpecialtyStart DateEnd Date Carri Ortega MD [address] [facility] #A PCP - Fjapcna55/3/22documented as of this encounter
--- OUTSIDE RECORDS SUMMARY | 2025-03-04 12:04 | XMS_ITS | Encounter Summary ---
Author Organization [facility] Address [address] [place] [address] Care Team Providers Care Line Clearance Foreman Name Role Phone Carri Ortega MD Primary Care Provider [phone] Encounter Details DateTypeDepartmentCare Team (Latest Contact Info)Spyipcpkqbi39/09/2025Orders Only [facility] Heart at [facility] [address] [place] [address] Amada Stewart, PERINATAL TECHNICIAN [address] [place] [address] Family history of premature CAD (Primary Dx); Dyspnea on exertion; Other chest pain; Allergic contact dermatitis, iodine, antiseptic, topical Social History Tobacco UseTypesPacks/DayYears UsedDateSmoking Tobacco: NeverSmokeless Tobacco: NeverAlcohol UseStandard Drinks/WeekCommentsYes0 (1 standard drink = 0.6 oz pure alcohol)occasionalUT Safety & EnvironmentAnswerDate RecordedFear of Current or Ex-PartnerNot on file05/07/2023Emotionally AbusedNot on file05/07/2023hysically AbusedNot on file05/07/2023Sexually AbusedNot on file05/07/2023hysically or Sexually AbusedNot on file05/07/2023CommentsUnknownSex and Gender InformationValueDate RecordedSex Assigned at BirthNot on fileLegal SexFemale 11/26/2021 1:32 PM EDTGender IdentityChoose not to jsxnuugh66/29/2025 11:13 PM EDTSexual OrientationChoose not to /29/2025 11:13 PM EDTdocumented as of this encounter Progress Notes * Amada Stewart CNP - 02/21/2025 10:44 AM EST Pre-medication orders for coronary CTA documented in this encounter Plan of Treatment Not on file documented as of this encounter Visit Diagnoses Diagnosis Family history of premature CAD- Primary Family history of ischemic heart disease Dyspnea on exertion Other dyspnea and respiratory abnormality Other chest pain Allergic contact dermatitis, iodine, antiseptic, topical documented in this encounter Care Teams Team MemberRelationshipSpecialtyStart [place] [address] [place] [address] #A PCP - Gjlrzke40/3/22documented as of this encounter
[2025-03-04 13:42] LABS: INR 0.97; Partial Thromboplastin Time 27.4 sec (22.3-36.2); Prothrombin Time 10.2 sec (9.0-11.6)
[2025-03-04 13:56] LABS: Fibrinogen 349 mg/dL (200-400)
[2025-03-08 17:08] LABS: PTT-LA 33.1 sec (0.0-43.5); dRVVT Confirm 1.4 ratio (0.8-1.2)
== END 2025-03-04 12:01 | disposition home or self-care (01) ==
LOC: LAB 12:00
PROVIDERS: PCP Family Medicine; Visit Provider Nurse Practitioner Family
DX: Z82.49 Family history of ischemic heart disease and other diseases of the circulatory system (principal)
CPT/HCPCS: 36415; 81240; 81241; 85300; 85303; 85306; 85378; 85384; 85610; 85730